=== PATIENT | female | born 1980 | race Caucasian/White ===

== ENCOUNTER 2020-10-10 10:27 | Emergency (ER) | payer OTHER, SELFPAY ==
--- NOTE | ~2020-10-10 | XR_ITS ---
EXAMINATION: XR hand RT min 3V EXAM DATE: 10/10/2020 10:58 INDICATION: Initial encounter following injury, with pain of the right hand, 5th metacarpal. TECHNIQUE: Right hand frontal, lateral and oblique projections obtained and reviewed. There is no pr ior study for comparison. FINDINGS: Right metacarpal bones are unremarkable. There are no acute fractures or dislocations iden tified. There is no subcutaneous gas. The soft tissue is unremarkable. There are no radiopaque fo reign bodies. IMPRESSION: 1. Right hand exam without acute osseous findings. Reviewed, dictated and finalized at location A. 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
[2020-10-10 10:41] VITALS: BP 139/88; PULSE 85; RESP 16; TEMP 36.3; O2SAT 100
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
== END 2020-10-10 11:17 | disposition home or self-care (01) ==
PROVIDERS: Emergency Provider Nurse Practitioner; PCP Family Medicine
DX: M79.641 Pain in right hand (principal); V49.40XA Driver injured in collision with unspecified motor vehicles in traffic accident, initial encounter
CPT/HCPCS: 73130; 99213; G0463

== ENCOUNTER 2020-10-28 14:52 | Outpatient (CLI) | payer OTHER, SELFPAY ==
[2020-10-28 16:11] LABS: CRP 0.6 mg/dL (<1.0)
[2020-10-28 16:38] LABS: Erythrocyte Sedimentation Rate 16 mm/hr (0-20)
== END 2020-10-28 14:53 | disposition home or self-care (01) ==
LOC: ANHLAB 14:53
PROVIDERS: PCP Family Medicine; Visit Provider Internal Medicine Gastroenterology
DX: R19.7 Diarrhea, unspecified (principal)
CPT/HCPCS: 36415; 85652; 86140

== ENCOUNTER 2020-10-30 09:42 | Outpatient (CLI) | payer OTHER, SELFPAY | END 2020-10-30 09:43 | disposition home or self-care (01) | LOC: ANHLAB 09:43 | PROVIDERS: PCP Family Medicine; Visit Provider Internal Medicine Gastroenterology | DX: R19.7 Diarrhea, unspecified (principal) | CPT/HCPCS: 87177; 87209 ==

== ENCOUNTER → 2021-02-15 01:00 | Outpatient (CLI) | payer OTHER, SELFPAY ==
[2021-02-15 19:13] LABS: SARS-CoV-2 RNA PCR Negative
== END ==
PROVIDERS: PCP Family Medicine; Visit Provider Internal Medicine Gastroenterology
DX: Z01.812 Encounter for preprocedural laboratory examination (principal); Z20.822 Contact with and (suspected) exposure to COVID-19
CPT/HCPCS: C9803; U0003; U0005

== ENCOUNTER 2021-02-18 00:10 | Day surgery (SDC) | payer OTHER, SELFPAY ==
[2021-02-05 15:16] VITALS: BMI 48.0
--- NOTE | 2021-02-18 09:28 | WPDANESEPPF ---
Anes - Initial Pre Proc Eval Procedure: Operation Date: 02/18/21 11:00 Proposed Procedures p Colonoscopy - Daniele Puri MD Date/Time: 02/18/21 09:28 Surgeon: Daniele Puri MD Pre Op Diagnosis: Colitis Patient Data Age: 41 Gender: F Height: 5 ft 4 in Weight: 127 kg Allergies Allergy/AdvReac Type Severity Reaction Status Date / Time butorphanol Allergy Intermediate Palpitation Verified 02/18/21 09:29 s egg Allergy Intermediate VOMITTING Verified 02/18/21 09:29 ketorolac Allergy Intermediate Palpitation Verified 02/18/21 09:29 s Home Medications Medication Instructions Recorded Confirmed Type azelaic acid 15 % topical foam 1 applic TOPICAL BID 10/28/20 02/18/21 History levothyroxine 150 mcg tablet 150 mcg PO DAILY #90 tablet 01/03/21 02/18/21 Rx Patient hx anesthesia problems: none Family hx anesthesia problems: none PMFSH Past Medical History Medical History (Updated 02/18/21 @ 09:28 by Abdi Srinivasan MD) Depression Diarrhea Hypothyroidism, unspecified Migraine without aura and without status migrainosus, not intractable Otitis media Family History Family History Sibling Hypertension Patient's sister is in good health, Onset Age: 38 Patient's brother is in good health, Onset Age: 33 Family history of elevated blood lipids, Onset Age: 36 Diabetes mellitus Father Hypertension Family history of elevated blood lipids, Onset Age: 57 Family history of diabetes mellitus in first degree relative, Onset Age: 57 Diabetes mellitus Mother Family history of chronic obstructive pulmonary disease Family history of coronary artery disease, Onset Age: 54 Social History Social History (Updated 02/03/21 @ 15:51 by Olivia Bai) Smoking status: Never smoker Second hand tobacco smoke exposure: No Alcohol intake: current Substance use: never Substance use type: does not use Living arrangements: with family Gender identity (if verbalized by the patient): Female Spiritual care concerns: No Anes - Eval Final PreProcedure Day of Procedure 02/18/21 09:28 Patient weight: morbidly obese Heart: regular rate and rhythm Lungs: clear to auscultation Airway: Mallampati scale class II Neurological: alert and oriented Last oral intake: >/= 8 hours ASA classification: III Emergent: no Anesthetic plan: proceed Anesthesia type and monitoring: general GIVS and standard monitoring Informed Consent: The patient's anesthetic plan and its attendant risks and benefits were discussed with the patient/family/POA. Questions were solicited and answers provided to the satisfaction of the patient/family/POA.
[2021-02-18 09:30] VITALS: BP 130/86; PULSE 78; RESP 17; TEMP 36.8; O2SAT 99; BMI 47.8
[2021-02-18] MEDS: LACTATED RINGERS 1,000 ML 150 ML IV CONT (09:41)
--- NOTE | 2021-02-18 10:14 | PM.HPGS ---
History of Present Illness History of Present Illness Consent: Risks, benefits, and alternatives have been discussed and questions answered. Patient agrees to proceed with procedure. Chief complaint: Colitis Narrative: Austin Mckeon is a 41 year old female with chronic diarrhea Review of Systems Constitutional: Constitutional: Denies headache(s) and Denies weakness Eyes: Eyes: Denies blurry vision ENT: Reports Normal hearing present, Denies headache(s) and Denies neck pain Cardiovascular: Cardiovascular: Denies chest pain and Denies dyspnea Respiratory: Respiratory: Denies dyspnea Gastrointestinal: Gastrointestinal: Reports no additional gastrointestinal complaints Genitourinary: Genitourinary: Denies dysuria Musculoskeletal: Musculoskeletal: Denies neck pain Integumentary/Breasts: Skin/Breast: Denies dry skin Neurologic: Reports Normal hearing present, Denies headache(s) and Denies weakness Psychiatric: Psychiatric: Denies anxiety Endocrine: Endocrine: Denies change in body appearance Hematologic/Lymphatic: Hematologic/Lymphatic: Denies easy bleeding Allergic/Immunologic: Allergic/Immunologic: Denies urticaria PMFSH Past Medical History Medical History (Updated 02/18/21 @ 09:28 by Abdi Srinivasan MD) Depression Diarrhea Hypothyroidism, unspecified Migraine without aura and without status migrainosus, not intractable Otitis media Family History Family History Sibling Hypertension Patient's sister is in good health, Onset Age: 38 Patient's brother is in good health, Onset Age: 33 Family history of elevated blood lipids, Onset Age: 36 Diabetes mellitus Father Hypertension Family history of elevated blood lipids, Onset Age: 57 Family history of diabetes mellitus in first degree relative, Onset Age: 57 Diabetes mellitus Mother Family history of chronic obstructive pulmonary disease Family history of coronary artery disease, Onset Age: 54 Social History Social History (Updated 02/03/21 @ 15:51 by Olivia Bai) Smoking status: Never smoker Second hand tobacco smoke exposure: No Alcohol intake: current Substance use: never Substance use type: does not use Living arrangements: with family Gender identity (if verbalized by the patient): Female Spiritual care concerns: No Meds Home Medications and Allergies Home Medications Medication Instructions Recorded Confirmed Type azelaic acid 15 % topical foam 1 applic TOPICAL BID 10/28/20 02/18/21 History levothyroxine 150 mcg tablet 150 mcg PO DAILY #90 tablet 01/03/21 02/18/21 Rx Allergies Allergy/AdvReac Type Severity Reaction Status Date / Time butorphanol Allergy Intermediate Palpitation Verified 02/18/21 09:29 s egg Allergy Intermediate VOMITTING Verified 02/18/21 09:29 ketorolac Allergy Intermediate Palpitation Verified 02/18/21 09:29 s Vital Signs Vital Signs - 24 hr 02/18/21 09:30 Temperature 98.3 F Pulse Rate 78 Respiratory Rate 17 Blood Pressure 130/86 Pulse Oximetry 99 Exam Const: General: comfortable and no acute distress HENMT: General nose exam: Normal nares present Eyes: General: appearance normal, both eyes and all related structures Neck: Neck: no JVD Resp: Auscultation: clear to auscultation bilaterally Cardio: Rate: regular rate Rhythm: regular rhythm GI: Inspection: non-distended GI Palp: Yes Soft to palpation Skin: General skin exam: normal color Neuro: General: gait normal Speech: normal speech Extrem: General: normal to inspection Psych: Mental Status: mental status grossly normal Assessment and Plan Assessment and plan (1) Diarrhea: Code(s): R19.7 - Diarrhea, unspecified Status: Acute Assessment and Plan: colonoscopy with bx
[2021-02-18 10:42] VITALS: BP 122/80; PULSE 72; RESP 17; O2SAT 100
[2021-02-18 10:52] VITALS: BP 132/89; PULSE 70; RESP 18; O2SAT 100
[2021-02-18 11:02] VITALS: BP 133/83; PULSE 70; RESP 18; O2SAT 100
== END 2021-02-18 11:25 | disposition home or self-care (01) ==
PROVIDERS: PCP Family Medicine; Visit Provider Internal Medicine Gastroenterology
PROC: 0DJD8ZZ Inspection of Lower Intestinal Tract, Via Natural or Artificial Opening Endoscopic (ICD-10-PCS; CPT 45378; principal; 2021-02-18 11:00)
DX: R19.7 Diarrhea, unspecified (principal); K64.8 Other hemorrhoids; E03.9 Hypothyroidism, unspecified; E66.01 Morbid (severe) obesity due to excess calories; Z68.42 Body mass index [BMI] 45.0-49.9, adult
CPT/HCPCS: 45380; 88305; J2704; J7120

== ENCOUNTER 2021-07-11 12:10 | Outpatient (CLI) | payer OTHER, SELFPAY ==
--- NOTE | ~2021-07-11 | XR_ITS ---
XR foot RT min 3V DATE: 07/11/2021 12:25 INDICATION: Right heel pain. TECHNIQUE: 4 views COMPARISON: None FINDINGS: There is mild osteophyte is at the first metatarsophalangeal joint. No fracture or dislocation, periosteal reaction or bone destruction. No calcaneal spurs. IMPRESSION: No calcaneal spurs Mild osteoarthritis at the first metatarsophalangeal joint Reviewed, dictated and finalized at location A.
== END 2021-07-11 12:11 | disposition home or self-care (01) ==
PROVIDERS: PCP Family Medicine; Visit Provider Nurse Practitioner Family
DX: M19.071 Primary osteoarthritis, right ankle and foot (principal)
CPT/HCPCS: 73630

== ENCOUNTER 2021-07-23 16:39 | Outpatient (CLI) | payer OTHER, SELFPAY ==
--- NOTE | ~2021-07-23 | MM_ITS ---
EXAMINATION: MM screening shen BI w mauro HISTORY: Screening mammogram TECHNIQUE: Craniocaudal and mediolateral oblique 3-D tomosynthesis images were obtained and synthetic 2-D images were generated. CAD analysis was submitted and interpreted. COMPARISON: 05/16/2014 BREAST PARENCHYMAL COMPOSITION: There are scattered areas of fibroglandular density. FINDINGS: RIGHT BREAST: There is low-density mass in the posterior third of the slightly outer breast. LEFT BREAST: There is no evidence of suspicious mass, calcification, or architectural distortion to s uggest malignancy. There has been no significant interval change. IMPRESSION: 1. Right breast mass. 2. Additional mammographic views and possible breast ultrasound are recommended. BI-RADS Category 0: Incomplete: Needs additional imaging evaluation. Reviewed, dictated and finalized at location A. IMPRESSION: 1. Right breast mass. 2. Additional mammographic views and possible breast ultrasound are recommended . BI-RADS Category 0: Incomplete: Needs additional imaging evaluation.
== END 2021-07-23 16:40 | disposition home or self-care (01) ==
PROVIDERS: PCP Family Medicine; Visit Provider Family Medicine
DX: Z12.31 Encounter for screening mammogram for malignant neoplasm of breast (principal); R92.8 Other abnormal and inconclusive findings on diagnostic imaging of breast
CPT/HCPCS: 77063; 77067

== ENCOUNTER 2021-08-18 13:02 | Outpatient (CLI) | payer OTHER, SELFPAY ==
--- NOTE | ~2021-08-18 | MMUS_ITS ---
EXAMINATION: MM diagnostic shen RT w mauro, US breast RT limited HISTORY: Follow-up right breast asymmetry TECHNIQUE: Additional 3-D tomosynthesis images of the right breast were performed and synthetic 2-D i mages were generated. CAD analysis was submitted and interpreted. High resolution Limited right breas t ultrasound was performed. COMPARISON: 07/23/2021 BREAST PARENCHYMAL COMPOSITION: Breast composed of scattered areas of fibroglandular density. FINDINGS: MAMMOGRAPHIC FINDINGS: There are small benign-appearing masses in the mid lateral aspect of the right breast. There are no s uspicious calcifications or architectural distortion. ULTRASOUND: Limited right breast ultrasound: At 9:00, 3 cm from the nipple, there is a complicated 3 mm cyst. No suspicious masses to suggest malignancy. IMPRESSION: 1. Probable benign right breast findings. Short-term follow-up recommended. 2. Recommend 6 month follow-up diagnostic right mammogram and ultrasound BI-RADS category 3, probably benign findings. Reviewed, dictated and finalized at location A. IMPRESSION: 1. Probable benign right breast findings. Short-term follow-up recommended. 2. Recommend 6 month follow-up diagnostic right mammogram and ultrasound BI-RADS category 3, probably benign findings.
== END 2021-08-18 13:03 | disposition home or self-care (01) ==
LOC: ANHIMG 13:04
PROVIDERS: PCP Family Medicine; Visit Provider Physician Assistant
DX: N63.10 Unspecified lump in the right breast, unspecified quadrant (principal); R92.8 Other abnormal and inconclusive findings on diagnostic imaging of breast
CPT/HCPCS: 76642; 77061; 77065; G0279

== ENCOUNTER 2021-10-14 08:00 | Outpatient (RCR) | payer OTHER, SELFPAY ==
--- NOTE | 2021-08-28 11:48 | PTOPEVAL ---
INITIAL PHYSICAL THERAPY EVALUATION and PLAN OF CARE Thank you for referring Austin Mckeon to [facility].? Austin is scheduled to be seen for physical therapy? 1x/week for 6 weeks. Please review, sign, date and return this plan of care BRANDO. I agree with and certify that the following plan of care is medically necessary. Referring Physician Date Admitting Provider: Attending Provider: Solange Ye CNM Referring Provider: *PT Outpatient Evaluation Start: 08/28/21 08:19 Freq: Status: Active Protocol: Document 08/28/21 08:19 DEVON (Rec: 08/28/21 09:35 DEVON [id number]) Therapy Assessment Status Assessment Status Assessment Status Evaluation Outpatient Past Medical History Past Medical History Source of Past Medical History Recalled from Previous Visit, Confirmed with Patient/Family Neurological History Hx Migraine Yes: COUPLE TIMES A YEAR Cardiovascular History Hx Cardiac Disorders No Significant History Respiratory History Hx Respiratory Disorders No Significant History Gastrointestinal History Hx Cholecystectomy Yes Hx Colitis Yes: R/O Hx Gastroesophageal Reflux Disease Yes Hx Irritable Bowel Yes: vs ulcerative colitis-has appt 10/28/20 Genitourinary History Hx Genitourinary Disorders No Significant History Musculoskeletal History Hx Musculoskeletal Disorders No Significant History Hematological History Hx Hematological Disorders No Significant History Endocrine History Hx Hypothyroidism Yes Hx Other Endocrine Disorders Yes: hypoglycemic HEENT History Hx HEENT Disorders No Significant History Integumentary History Hx Eczema Yes: PATCHES Hx Other Skin Disorders Yes: ROSASEA Reproductive History Hx Abnormal Uterine Bleeding Yes: 2018-ABLATION Hx Tubal Ligation Yes Hx Other Reproductive Disorders Yes: uterine ablation Psychosocial History Hx Anxiety Yes Hx Depression Yes: PAST Pain History History of Any Previous or Ongoing No Significant History Instance of Pain Anesthesia History Hx Post-Op Nausea/Vomiting Yes Hx Other Anesthesia Reactions Yes: SLOW TO WAKE UP, NAUSEA Evaluation Information Problem Diagnosis dyspareunia Onset Subjective Information Austin was using menstrual cup Query Text:As Reported By Patient/ - but inability to get it Family placed it in the correct position since . Then switched to tampons - but still had difficulty with placement - didn't feel
--- NOTE | 2021-09-18 08:37 | PCPTNOTE ---
Patient called & cancelled scheduled appointment this date due to illness.
--- NOTE | 2021-09-23 08:34 | PCPTNOTE ---
Patient called & cancelled scheduled appointment this date due to children may have a virus - going to have them checked out.
--- NOTE | 2021-10-07 08:43 | PCPTNOTE ---
Patient called & cancelled scheduled appointment this date due to not feeling well. She did reschedule her re-evaluation.
--- NOTE | 2021-10-14 10:44 | PTOPEVAL ---
PHYSICAL THERAPY DISCHARGE SUMMARY Thank you for referring Austin Mckeon to [facility].? Austin has been seen x 5 visits in PT. She has gained levator ani strength and endurance as well as increase with relaxation ability. She has met goals set. She is to continue with her HEP as well as soft tissue mobilization techniques. She is ready for d/c from PT to HEP. I agree with Austin's discharge from PT to HEP. Referring Physician Date Admitting Provider: Attending Provider: Solange Ye CNM Referring Provider: Therapy Assessment Status Assessment Status Assessment Status Discharge Evaluation Information Problem Diagnosis dyspareunia Subjective Information Austin reports that exercises Query Text:As Reported By Patient/ are going well for her - doesn Family 't have the urine smell in underwear like she used to. With sneezing and coughing - not having urinary leakage. [place] is less painful - if she does feel discomfort her fiance will reposition for less discomfort. Pain Assessment Timing of Pain Assessment Timing of Pain Assessment Assessment Pain Scale Pain Scale Used Numeric (1 - 10) Self Report Pain Assessment Vagina Reported Pain Level 0 Lowest Pain Intensity 0 Greatest Pain Intensity 2 Pain Score Pain Score 0: Self Report Interventions Used Interventions Used By Clinicians Exercise Pelvic Health Evaluation Pelvic Floor Assessment Internal Perineal Body Palpation deferred due to pt in menstrual cycle Sustained Levator Ani Strength 4/5 with 10 count hold Quick Levator Ani Contraction in 15 17 Seconds Rehab Teaching Rehab Teaching Teaching Topic Rehab Teaching Topic Components Anatomy/Physiology,Exercise, Home Program,Skin Care As Pertains To Technique,Vendor Information Recipient Patient Learning Preferences Audio,Demonstration,Discussion ,One-on-One Instruction Barriers to Learning None Readiness to Learn Excellent Response Verbalizes Understanding Method Discussion,One-On-One Instruction PT Clinical Summary Clinical Summary Protocol: PTEVCODE PT Clinical Summary Vulvar Pain Functional Questionnaire - 3 pts Austin has progressed well in PT. She has gained levator ani strength and control as
== END 2021-10-14 16:41 | disposition home or self-care (01) ==
LOC: ANHPT 08:00
PROVIDERS: PCP Family Medicine; Visit Provider Advanced Practice Midwife
DX: N94.10 Unspecified dyspareunia (principal)
CPT/HCPCS: 97110; 97140; 97162

== ENCOUNTER 2022-02-02 13:30 | Outpatient (CLI) | payer OTHER, SELFPAY ==
--- NOTE | ~2022-02-02 | MMUS_ITS ---
EXAMINATION: MM diagnostic shen RT w mauro, US breast RT limited HISTORY: Follow-up right breast mass TECHNIQUE: Additional 3-D tomosynthesis images of the right breast were performed and synthetic 2-D i mages were generated. CAD analysis was submitted and interpreted. High resolution Limited right breas t ultrasound was performed. COMPARISON: Comparison to multiple prior studies sequentially, with oldest reviewed study dated 05/16. BREAST PARENCHYMAL COMPOSITION: Breast composed of scattered areas of fibroglandular density FINDINGS: MAMMOGRAPHIC FINDINGS: There are no suspicious masses, calcifications or architectural distortion in the right breast to sug gest malignancy. ULTRASOUND: Limited right breast ultrasound: At 9:00, 5 cm from the nipple there is a 6 mm oval hypoechoic mass w ith low-level internal echoes, parallel orientation, no posterior features and no internal vascularit y. At 9:00, 3 cm from the nipple there is a 3 mm complicated cyst. IMPRESSION: 1. Probable benign right breast masses. 2. Recommend 6 month follow-up bilateral mammogram and limited right breast ultrasound BI-RADS category 3, probably benign findings. Reviewed, dictated and finalized at location A. 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 Probable benign right breast masses. 2. Recommend 6 month follow-up bilateral mammogram and limited right breast ult rasound BI-RADS category 3, probably benign findings.
== END 2022-02-02 13:31 | disposition home or self-care (01) ==
LOC: ANHIMG 13:31
PROVIDERS: PCP Family Medicine; Visit Provider Physician Assistant
DX: R92.8 Other abnormal and inconclusive findings on diagnostic imaging of breast (principal)
CPT/HCPCS: 76642; 77061; 77065; G0279

== ENCOUNTER 2022-07-31 11:43 | Outpatient (CLI) | payer OTHER, SELFPAY ==
--- NOTE | ~2022-07-31 | MMUS_ITS ---
EXAMINATION: MM diagnostic shen BI w mauro, US breast RT limited HISTORY: Six-month follow-up for probably benign right breast masses TECHNIQUE: Craniocaudal, mediolateral, and mediolateral oblique 3-D tomosynthesis images of the breas ts were performed and synthetic 2-D images were generated. CAD analysis was submitted and interpreted . High resolution limited right breast ultrasound was performed. COMPARISON: 02/02/2022, 08/18/2021, 07/23/2021, 05/16/2014 BREAST PARENCHYMAL COMPOSITION: There are scattered areas of fibroglandular density. FINDINGS: MAMMOGRAPHIC FINDINGS: There is no suspicious mass, calcification, or architectural distortion in either breast to suggest malignancy. There has been no suspicious interval change. ULTRASOUND: A 2 mm round mass at the 9:00 location 5 cm from the nipple demonstrates interval decrease in size, c onsistent with a benign finding. A mass previously described at the 9:00 location 3 cm from the nippl e is no longer identified. IMPRESSION: 1. No mammographic or sonographic evidence of malignancy. 2. Recommend routine screening mammography in one year. BI-RADS Category 2: Benign finding(s). Reviewed, dictated and finalized at location A. IMPRESSION: 1. No mammographic or sonographic evidence of malignancy. 2. Recommend routine screening mammography in one year. BI-RADS Category 2: Benign finding(s).
== END 2022-07-31 11:44 | disposition home or self-care (01) ==
LOC: ANHIMG 11:44
PROVIDERS: PCP Family Medicine; Visit Provider Physician Assistant
DX: R92.8 Other abnormal and inconclusive findings on diagnostic imaging of breast (principal)
CPT/HCPCS: 76642; 77062; 77066; G0279

== ENCOUNTER 2022-10-12 09:18 | Outpatient (CLI) | payer OTHER, SELFPAY ==
--- NOTE | ~2022-10-12 | US_ITS ---
EXAMINATION: US abdomen complete DATE: 10/12/2022 10:00 INDICATION: Hepatic steatosis TECHNIQUE: Multiple grayscale and Doppler ultrasound images of the abdomen were obtained. COMPARISON: 05/19/2017; CT, 06/22/2019 FINDINGS: The head and body of the pancreas are normal. The pancreatic tail is obscured by bowel gas. The liver is normal with normal echogenicity and echotexture. No surface nodularity. Normal hepatope maury flow in the main portal vein. The gallbladder is surgically absent. The normal common bile duct m easures 4 mm. There was no sonographic Elaine sign. The visualized portions of the aorta and inferior vena cava are normal. The right kidney measures 11.6 x 4.4 x 6.3 cm. The left kidney measures 14 x 5.0 x 5.7 cm. The kidney s demonstrate normal parenchymal echogenicity. There is no hydronephrosis. The spleen is normal in ap pearance and measures 11.3 cm. IMPRESSION: 1. Unremarkable abdominal ultrasound. Reviewed, dictated and finalized at location F. 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
== END 2022-10-12 09:19 | disposition home or self-care (01) ==
PROVIDERS: PCP Family Medicine
DX: K76.0 Fatty (change of) liver, not elsewhere classified (principal)
CPT/HCPCS: 76700

== ENCOUNTER 2023-04-21 18:39 | Emergency (ER) | payer OTHER, SELFPAY ==
--- NOTE | 2023-04-21 18:48 | ED.SKABFB ---
HPI - Skin/Abscess/Foreign Bdy General Chief complaint: Skin/Abscess/Foreign Body Stated complaint: RASH Time Seen by Provider: 04/21/23 18:48 Source: patient Mode of arrival: ambulatory Limitations: no limitations History of Present Illness HPI narrative: 43-year-old female presents with complaint of rash, itching to groin for 3 days. States she did 8 hours of your work on Wednesday and symptoms started the next day. States no history of similar rash. Sees a weight loss doctor and reports blood sugar, A1c normal. Has been applying [id number] hydrocortisone cream to treat itching. Patient reports she was recently given a prescription for terbinafine for toenail fungus but has not started yet. All systems reviewed and negative except as noted above. Related Data Home Medications Medication Instructions Recorded Confirmed azelaic acid 15 % topical foam 1 applic topical BID 10/28/20 04/21/23 (Finacea) tirzepatide 12.5 mg/0.5 mL 12.5 mg subcut WEEKLY 04/21/23 04/21/23 subcutaneous pen injector (Mounjaro) Allergies Allergy/AdvReac Type Severity Reaction Status Date / Time butorphanol Allergy Intermediate Palpitation Verified 04/21/23 18:42 s egg Allergy Intermediate VOMITTING Verified 04/21/23 18:42 ketorolac Allergy Intermediate Palpitation Verified 04/21/23 18:42 s Review of Systems Review of Systems: CONSTITUTIONAL: Denies fever, chills, or sweats. EYES: Denies visual changes, redness, or discharge. ENT: Denies rhinorrhea, congestion, sore throat, or otalgia. CARDIOVASCULAR: Denies chest pain, palpitations, or edema. RESPIRATORY: Denies cough or dyspnea. GASTROINTESTINAL: Denies abdominal pain, nausea, vomiting, or diarrhea. GENITOURINARY: Denies dysuria or hematuria. SKIN: Reports redness and itching to bilateral groin. MUSCULOSKELETAL: Denies back pain, joint pain, or myalgia. NEUROLOGIC: Denies headache, numbness, or weakness. PSYCHIATRIC: Denies anxiety or depression. All other systems reviewed are negative, except as documented in HPI. PENDING SALE TO [facility] Past Medical History Medical History Anxiety Depression Diarrhea Hypothyroidism, unspecified Migraine without aura and without status migrainosus, not intractable Otitis media Family History Family History Sibling Hypertension Patient's sister is in good health, Onset Age: 38 Patient's brother is in good health, Onset Age: 33 Family history of elevated blood lipids, Onset Age: 36 Diabetes mellitus Father Hypertension Family history of elevated blood lipids, Onset Age: 57 Family history of diabetes mellitus in first degree relative, Onset Age: 57 Diabetes mellitus Mother Family history of chronic obstructive pulmonary disease Family history of coronary artery disease, Onset Age: 54 Social History Social History Smoking status: Never smoker Second hand tobacco smoke exposure: No Alcohol intake: never Substance use: never Substance use type: does not use Living arrangements: with family Occupation/Education: occupation Gender identity (if verbalized by the patient): Female Sexual Orientation (if Verbalized by the Patient): Straight or Heterosexual Spiritual care concerns: No Comments At time of signature, agree with nursing past medical, surgical, social and family history. There is no relevant family history pertinent to the presenting complaint. Exam Narrative: GENERAL: This is a well-nourished, well-developed patient, in no apparent distress. HEAD: normocephalic, atraumatic. EYES: PERRL. Sclera clear/white. Vision is grossly intact. EARS: External ears normal NOSE: External nose normal NECK: Neck supple, non-tender without lymphadenopathy, masses or thyromegaly. CARDIOVASCULAR: Regular rate and rhythm without murmurs, gallops, or
[2023-04-21 18:51] VITALS: BP 130/89; PULSE 79; RESP 16; TEMP 36.5; O2SAT 97
== END 2023-04-21 19:20 | disposition home or self-care (01) ==
PROVIDERS: Emergency Provider Nurse Practitioner Family; PCP Family Medicine
DX: B37.2 Candidiasis of skin and nail (principal); E03.9 Hypothyroidism, unspecified
CPT/HCPCS: 99213; G0463

== ENCOUNTER 2023-04-25 11:45 | Emergency (ER) | payer OTHER, SELFPAY ==
[2023-04-25 11:52] VITALS: BP 120/86; PULSE 65; RESP 16; TEMP 36.8; O2SAT 100
--- NOTE | 2023-04-25 12:43 | ED.SKABFB ---
HPI - Skin/Abscess/Foreign Bdy General Chief complaint: Skin/Abscess/Foreign Body Stated complaint: yeast infection on legs Time Seen by Provider: 04/25/23 12:43 Source: patient, RN notes reviewed and old records reviewed Mode of arrival: ambulatory Limitations: no limitations History of Present Illness HPI narrative: 43 year old female who presents with concern for warmth and increased redness and spreading of rash to bilateral upper thighs and groin area. Patient has been using nystatin ointment as prescribed by clinic provider and also is on terbinafine for toenail fungus from her PCP. Patient states that area of rash is itchy, has spread and feels warm with concern stated for possible cellulitis. No weeping drainage noted from skin tissue but warm to touch. Patient reports that she has not had any fevers. Patient reports that rash area is very itchy and if she scratches, it mantilla. MD complaint: rash Onset (ago): day(s) (6) Tetanus up to date: no Treatments prior to arrival: OTC topical medication and other (terbinafine oral medication, Nystatin ointment) Related Data Home Medications Medication Instructions Recorded Confirmed azelaic acid 15 % topical foam 1 applic topical BID 10/28/20 04/21/23 (Finacea) tirzepatide 12.5 mg/0.5 mL 12.5 mg subcut WEEKLY 04/21/23 04/21/23 subcutaneous pen injector (Mounjaro) Allergies Allergy/AdvReac Type Severity Reaction Status Date / Time butorphanol Allergy Intermediate Palpitation Verified 04/25/23 12:11 s egg Allergy Intermediate VOMITTING Verified 04/25/23 12:11 ketorolac Allergy Intermediate Palpitation Verified 04/25/23 12:11 s Review of Systems Review of Systems: CONSTITUTIONAL: Denies fever, chills, or sweats. CARDIOVASCULAR: Denies chest pain, palpitations, or edema. RESPIRATORY: Denies cough or dyspnea. SKIN: Reports increase rash to bilateral upper thighs and to groin with warmth to skin tissue. MUSCULOSKELETAL: Denies joint pain or myalgia. NEUROLOGIC: Denies headache, numbness, or weakness. All systems reviewed & are unremarkable except as noted in HPI and below PMFSH Past Medical History Medical History Anxiety Depression Diarrhea Hypothyroidism, unspecified Migraine without aura and without status migrainosus, not intractable Otitis media Family History Family History Sibling Hypertension Patient's sister is in good health, Onset Age: 38 Patient's brother is in good health, Onset Age: 33 Family history of elevated blood lipids, Onset Age: 36 Diabetes mellitus Father Hypertension Family history of elevated blood lipids, Onset Age: 57 Family history of diabetes mellitus in first degree relative, Onset Age: 57 Diabetes mellitus Mother Family history of chronic obstructive pulmonary disease Family history of coronary artery disease, Onset Age: 54 Social History Social History Smoking status: Never smoker Second hand tobacco smoke exposure: No Alcohol intake: never Substance use: never Substance use type: does not use Living arrangements: with family Occupation/Education: occupation Gender identity (if verbalized by the patient): Female Sexual Orientation (if Verbalized by the Patient): Straight or Heterosexual Spiritual care concerns: No Comments At time of signature, agree with nursing past medical, surgical, social and family history. There is no relevant family history pertinent to the presenting complaint Exam Narrative: GENERAL: Well-appearing, well-nourished, and in no acute distress. HEAD: Normocephalic, atraumatic. EYES: PERRLA, conjunctivae clear, and EOMI. ENT: Mucous membranes moist. Oropharynx without edema, erythema or lesions. NECK: Supple. No lymphadenopathy CHEST: Clear to auscultation. No respira
[2023-04-25] MEDS: TETANUS,DIPHTHERIA,AC PERTUSSIS ADULT (0.5 ML) BOOSTRIX IM (13:08)
== END 2023-04-25 13:11 | disposition home or self-care (01) ==
PROVIDERS: Emergency Provider Registered Nurse; PCP Family Medicine
DX: B37.2 Candidiasis of skin and nail (principal); L03.116 Cellulitis of left lower limb; L03.115 Cellulitis of right lower limb; E03.9 Hypothyroidism, unspecified; Z23 Encounter for immunization
CPT/HCPCS: 90471; 90715; 99213; G0463

== ENCOUNTER 2023-08-30 08:05 | Emergency (ER) | payer OTHER, SELFPAY ==
--- NOTE | ~2023-08-30 | XR_ITS ---
EXAMINATION: XR foot LT min 3V DATE: 08/30/2023 08:32 INDICATION: Left foot injury. TECHNIQUE: 4 views of left foot were obtained. COMPARISON: Left foot radiographs 04/20/2018 FINDINGS: Bone alignment is normal. No fracture. There is mild osteoarthritis of first metatarsophala ngeal joint. There is an enthesophyte at posterior aspect of calcaneal tuberosity. IMPRESSION: 1. Mild osteoarthritis of first metatarsophalangeal joint. Reviewed, dictated and finalized at location E.
[2023-08-30 08:15] VITALS: BP 126/82; PULSE 70; RESP 16; TEMP 36.7; O2SAT 100
[2023-08-30 08:17] VITALS: BP 126/82; PULSE 70; RESP 16; TEMP 36.7; O2SAT 100
--- NOTE | 2023-08-30 08:19 | ED.LOWEXIN ---
HPI - Extremity Injury (Lower) General Chief Complaint: Extremity Injury, Lower Stated Complaint: Injured foot Time Seen by Provider: 08/30/23 08:19 Source: patient, RN notes reviewed and old records reviewed Mode of arrival: ambulatory Limitations: no limitations History of Present Illness HPI Narrative: 43 year old female who presents to [facility] with complaints of glass lid from wok falling on her left foot when she was emptying her roof slater yesterday evening.Patient has pain and bruising to the top of her foot across the metatarsal area with pain increased with ambulation. Patient has applied ice to her foot and she has taken Ibuprofen. Patient is able to apply marlen bearing to her left foot with some increased discomfort. MD complaint: foot injury Onset (ago): day(s) (happened yesterday) Injury: Left: foot Type of Injury: blunt Place: home Severity scale (1-10): 5 (with ambulation) Treatments prior to arrival: cold therapy and other (Ibuprofen) Related Data Home Medications Medication Instructions Recorded Confirmed azelaic acid 15 % topical foam 1 applic topical BID 10/28/20 08/30/23 (Finacea) ivermectin 1 % topical cream 1 applic topical DIRECTED 08/30/23 08/30/23 (Soolantra) liraglutide (weight loss) 3 mg/0.5 3 mg subcut DIRECTED 08/30/23 08/30/23 mL (18 mg/3 mL) subcut pen injector (Saxenda) Allergies Allergy/AdvReac Type Severity Reaction Status Date / Time butorphanol Allergy Intermediate Palpitation Verified 08/30/23 08:13 s egg Allergy Intermediate VOMITTING Verified 08/30/23 08:13 ketorolac Allergy Intermediate Palpitation Verified 08/30/23 08:13 s Review of Systems Review of Systems: CONSTITUTIONAL: Denies fever, chills, or sweats. EYES: Denies visual changes, redness, or discharge. ENT: Denies rhinorrhea, congestion, sore throat, or otalgia. CARDIOVASCULAR: Denies chest pain, palpitations, or edema. RESPIRATORY: Denies cough or dyspnea. GASTROINTESTINAL: Denies abdominal pain, nausea, vomiting, or diarrhea. GENITOURINARY: Denies dysuria or hematuria. SKIN: Denies rash or itching. MUSCULOSKELETAL: Denies back pain,positive for left foot pain, or myalgia. NEUROLOGIC: Denies headache, numbness, or weakness. PSYCHIATRIC: Denies anxiety or depression. All systems reviewed & are unremarkable except as noted in HPI and below PMFSH Past Medical History Medical History (Updated 08/30/23 @ 08:49 by Saige Conway NP) Anxiety Depression Diarrhea Hypothyroidism, unspecified Migraine without aura and without status migrainosus, not intractable Otitis media Rosacea Family History Family History Sibling Hypertension Patient's sister is in good health, Onset Age: 38 Patient's brother is in good health, Onset Age: 33 Family history of elevated blood lipids, Onset Age: 36 Diabetes mellitus Father Hypertension Family history of elevated blood lipids, Onset Age: 57 Family history of diabetes mellitus in first degree relative, Onset Age: 57 Diabetes mellitus Mother Family history of chronic obstructive pulmonary disease Family history of coronary artery disease, Onset Age: 54 Social History Social History Smoking status: Never smoker Second hand tobacco smoke exposure: No Alcohol intake: never Substance use: never Substance use type: does not use Living arrangements: with family Occupation/Education: occupation Gender identity (if verbalized by the patient): Female Sexual Orientation (if Verbalized by the Patient): Straight or Heterosexual Spiritual care concerns: No Comments At time of signature, agree with nursing past medical, surgical, social and family history. There is no relevant family history pertinent to the presenting complaint Exam Narrative: GENERAL: Well-appearing, well-nourished, and in no acute d
== END 2023-08-30 08:52 | disposition home or self-care (01) ==
PROVIDERS: Emergency Provider Registered Nurse; PCP Family Medicine
DX: S90.32XA Contusion of left foot, initial encounter (principal); E03.9 Hypothyroidism, unspecified; W22.8XXA Striking against or struck by other objects, initial encounter; Y92.009 Unspecified place in unspecified non-institutional (private) residence as the place of occurrence of the external cause
CPT/HCPCS: 73630; 99213; G0463

== ENCOUNTER 2023-11-16 14:42 | Emergency (ER) | payer OTHER, SELFPAY ==
[2023-11-16 14:47] VITALS: BP 117/85; PULSE 81; RESP 16; TEMP 36.9; O2SAT 99
--- NOTE | 2023-11-16 14:57 | ED.FEMALEGU ---
HPI - Female Genitourinary General Chief complaint: Urogenital-Female Stated complaint: Bladder Infection Time Seen by Provider: 11/16/23 14:58 Source: patient, RN notes reviewed and old records reviewed Mode of arrival: ambulatory Limitations: no limitations History of Present Illness HPI Narrative: 43-year-old female presents to the [facility] with concerns she might have a bladder infection. Since Wednesday has had a strong odor, urgency and occasional burning when she urinates. No treatment prior to arrival Last menstrual period 29 October Denies abdominal pain or chest pain. Denies fevers Onset (ago): day(s) (2) Related Data Home Medications Medication Instructions Recorded Confirmed azelaic acid 15 % topical foam 1 applic topical BID 10/28/20 10/13/23 (Finacea) ivermectin 1 % topical cream 1 applic topical DIRECTED 08/30/23 10/13/23 (Soolantra) liraglutide (weight loss) 3 mg/0.5 3 mg subcut DIRECTED 08/30/23 10/13/23 mL (18 mg/3 mL) subcut pen injector (Saxenda) Allergies Allergy/AdvReac Type Severity Reaction Status Date / Time butorphanol Allergy Intermediate Palpitation Verified 10/13/23 16:51 s egg Allergy Intermediate VOMITTING Verified 10/13/23 16:51 ketorolac Allergy Intermediate Palpitation Verified 10/13/23 16:51 s Review of Systems Review of Systems: All systems reviewed & are unremarkable except as noted in HPI and below Constitutional: Constitutional: Reports no additional constitutional complaints Eyes: Eyes: Reports no additional eye complaints ENT: Reports system reviewed and no additional complaints, except as documented Cardiovascular: Cardiovascular: Reports no additional cardiovascular complaints, Denies chest pain and Denies dyspnea Respiratory: Respiratory: Reports no additional respiratory complaints, Denies chest congestion, Denies cough and Denies dyspnea Gastrointestinal: Gastrointestinal: Reports no additional gastrointestinal complaints, Denies abdominal pain, Denies nausea and Denies vomiting Genitourinary: Genitourinary: Reports as per HPI and Reports dysuria Musculoskeletal: Musculoskeletal: Reports no additional musculoskeletal complaints Integumentary/Breasts: Skin/Breast: Reports system reviewed and no additional complaints, except as docu Neurologic: Reports system reviewed and no additional complaints, except as documented Psychiatric: Psychiatric: Reports no additional psychiatric complaints Allergic/Immunologic: Allergic/Immunologic: Reports no additional allergic/immunologic complaints PMFSH Past Medical History Medical History Anxiety Depression Diarrhea Hypothyroidism, unspecified Migraine without aura and without status migrainosus, not intractable Otitis media Rosacea Family History Family History Sibling Hypertension Patient's sister is in good health, Onset Age: 38 Patient's brother is in good health, Onset Age: 33 Family history of elevated blood lipids, Onset Age: 36 Diabetes mellitus Father Hypertension Family history of elevated blood lipids, Onset Age: 57 Family history of diabetes mellitus in first degree relative, Onset Age: 57 Diabetes mellitus Mother Family history of chronic obstructive pulmonary disease Family history of coronary artery disease, Onset Age: 54 Social History Social History Smoking status: Never smoker Second hand tobacco smoke exposure: No Alcohol intake: never Substance use: never Substance use type: does not use Living arrangements: with family Occupation/Education: occupation Gender identity (if verbalized by the patient): Female Sexual Orientation (if Verbalized by the Patient): Straight or Heterosexual Spiritual care concerns: No Comments At the time of my signature, I reviewed and agr
== END 2023-11-16 15:14 | disposition home or self-care (01) ==
PROVIDERS: Emergency Provider Nurse Practitioner; PCP Family Medicine
DX: R30.0 Dysuria (principal); E03.9 Hypothyroidism, unspecified
CPT/HCPCS: 81003; 87077; 87086; 87186; 99213; G0463

== ENCOUNTER 2024-08-24 15:38 | Outpatient (CLI) | payer OTHER, SELFPAY ==
--- NOTE | ~2024-08-24 | XR_ITS ---
EXAM: XR sacrum coccyx min 2V DATE: 08/24/2024 15:55 HISTORY: no injury left side lbp and tailbone pain for 9 months . COMPARISON: X-ray lumbar spine, same date. FINDINGS: Mild degenerative change in the right SI joint. Moderate degenerative disc disease at L5-S 1. Multiple pelvic phleboliths. Normal sacral and coccygeal elements. IMPRESSION: Mild right SI joint arthritis. Reviewed, dictated and finalized at location K.
--- NOTE | ~2024-08-24 | XR_ITS ---
EXAM: XR lumbar spine 2-3V DATE: 08/24/2024 15:55 HISTORY: no injury left side lbp and tailbone pain for 9 months . COMPARISON: None available. FINDINGS: 5 nonrib-bearing lumbar-type vertebral bodies. Pedicles intact. Normal vertebral body alig nment. Mild lumbar straightening. Vertebral body heights preserved. Moderate disc space narrowing at L5-S1. Mild disc space narrowing at L3-4. Mild facet hypertrophy and sclerosis in the lower lumbar sp ine. No fracture or dislocation. Cholecystomy clips. IMPRESSION: Multilevel degenerative disc disease, mild at L3-4 and moderate at L5-S1. Mild lower lumb ar facet arthropathy. Reviewed, dictated and finalized at location K. IMPRESSION: Multilevel degenerative disc disease, mild at L3-4 and moderate at L5-S1. Mild lower lumbar facet arthropathy.
== END 2024-08-24 15:39 | disposition home or self-care (01) ==
LOC: GOSHIMG 15:39
PROVIDERS: PCP Family Medicine; Visit Provider Physician Assistant Medical
DX: M53.3 Sacrococcygeal disorders, not elsewhere classified (principal); M51.36 Other intervertebral disc degeneration, lumbar region; M51.37 Other intervertebral disc degeneration, lumbosacral region
CPT/HCPCS: 72100; 72220

== ENCOUNTER 2024-09-11 04:28 | Emergency (ER) | payer OTHER, SELFPAY ==
--- NOTE | ~2024-09-11 | CT_ITS ---
Non-contrast Head CT History: Vertigo Technique: Axial non-contrast imaging of the brain was performed. Dose reduction technique was used on this scan by utilizing automated exposure control and iterative reconstruction technique. The dose -length product (DLP) was 605.33 mGy-cm. Findings: There is no evidence of intracranial hemorrhage, mass lesion, or acute infarct. Brain par enchyma appears normal. The ventricles and subarachnoid spaces are normal in size. The calvarium ap pears normal. The visualized paranasal sinuses and mastoid air cells are clear. Impression: No significant abnormality seen. Reviewed, dictated and finalized at location . Impression: No significant abnormality seen.
--- NOTE | 2024-09-11 04:33 | ECG_ITS ---
Test Date: 2024-09-11 05:02:55 Measurements Intervals [place] Rate: 65 P: 53 UT: 161 QRS: 21 QRSD: 81 T: 30 QT: 396 QTc: 412 Interpretive Statements SINUS RHYTHM No previous ECG available for comparison Electronically Signed On 09-11-2024 14:32:14 CDT by Alfred Tadeo M.D.
--- NOTE | 2024-09-11 04:40 | ED.GENADULT ---
HPI - General Adult General Chief complaint: Unspecified Stated complaint: dizzy after stretching Time Seen by Provider: 09/11/24 04:34 History of Present Illness HPI narrative: 44-year-old otherwise healthy female presenting to the emergency room with a chief complaint of sudden onset vertigo and headache. She states that she was getting up out of bed and noticed a significant sensation of headache in the back of her head that started radiating towards the top of her head and behind her eyes. This was associated loud wheezing sound in both her ears and sensation of vertigo. She is presently nauseous but has not had any vomiting. She states she has had vertigo before and was previously worked up for Meniere's disease but not any medications but states meclizine previously has helped her. Denies any trauma recent injuries. No history of aneurysms, stroke or closed head injuries. States that presently she does not have the whooshing sound years but feels nauseated and vertiginous. No appreciable weakness, sensory changes, chest pain, shortness a breath, neck pain. Was otherwise in her normal state of health recently. Related Data Home Medications Medication Instructions Recorded Confirmed ivermectin 1 % topical cream 1 applic topical DIRECTED 08/30/23 08/24/24 (Soolantra) Allergies Allergy/AdvReac Type Severity Reaction Status Date / Time butorphanol Allergy Intermediate Palpitation Verified 09/11/24 05:04 s egg Allergy Intermediate VOMITTING Verified 09/11/24 05:04 ketorolac Allergy Intermediate Palpitation Verified 09/11/24 05:04 s Review of Systems Review of Systems: As reviewed above in HPI [facility] Past Medical History Medical History Anxiety Depression Diarrhea Hypothyroidism, unspecified Migraine without aura and without status migrainosus, not intractable Morbid obesity Otitis media Rosacea Family History Family History Sibling Hypertension Patient's sister is in good health, Onset Age: 38 Patient's brother is in good health, Onset Age: 33 Family history of elevated blood lipids, Onset Age: 36 Diabetes mellitus Father Hypertension Family history of elevated blood lipids, Onset Age: 57 Family history of diabetes mellitus in first degree relative, Onset Age: 57 Diabetes mellitus Mother Family history of chronic obstructive pulmonary disease Family history of coronary artery disease, Onset Age: 54 Social History Social History Smoking status: Never smoker Second hand tobacco smoke exposure: No Alcohol intake: never Substance use: never Substance use type: does not use Living arrangements: with family Occupation/Education: occupation Gender identity (if verbalized by the patient): Female Sexual Orientation (if Verbalized by the Patient): Straight or Heterosexual Spiritual care concerns: No Exam Narrative: GENERAL: [Well-appearing, well-nourished, and in no acute distress.] HEAD: [Normocephalic, atraumatic.] EYES: [PERRLA and EOMI.] ENT: Nares clear, no rhinorrhea or epistaxis. Mucous membranes moist. NECK: Supple. CHEST: [Clear to auscultation. No respiratory distress.] HEART: [Regular rate and rhythm]. No murmur heard. [Normal peripheral pulses.] ABDOMEN: [Soft, nondistended], [nontender], [No rigidity or guarding] EXTREMITIES: Normal range of motion. [No edema.] SKIN: Warm, dry, no rash. NEURO: [No focal deficits]. Alert and oriented [x3.] No strength deficits, normal sensation throughout both arms and legs, no ataxia in the arms, eyes. No nystagmus. Extraocular movements full, cranial nerves are intact PSYCH: [Normal mood and affect.] Course Vital Signs Vital signs: Vital Signs Temperature 36.2 C L 09/11/24 04:59 Pulse Rate 64 09/11/24
[2024-09-11 04:59] VITALS: BP 132/91; PULSE 64; RESP 18; TEMP 36.2; O2SAT 97
[2024-09-11 05:03] VITALS: BP 132/91; PULSE 72; RESP 18; TEMP 36.2; O2SAT 98
[2024-09-11] MEDS: ONDANSETRON INJ 4 MG/2 ML VIAL IV PUSH (05:14)
[2024-09-11] MEDS: MECLIZINE HCL 25 MG TABLET PO (05:14)
[2024-09-11] MEDS: LACTATED RINGERS 1,000 ML 999 ML IV CONT (05:14)
[2024-09-11 05:22] LABS: BEDSIDEPREGUCG Negative (Negative)
[2024-09-11 05:26] LABS: Basophils Percent Auto 0.4 % (0.2-1.2); Eosinophils Absolute Auto 0.2 K/mm3 (0-0.3); Eosinophils Percent Auto 2.4 % (0-4.4); Hematocrit 39.6 % (37.0-47.0); Hemoglobin 13.7 g/dL (12.0-15.0); Immature Granulocyte Absolute 0.05 K/mm3 (0.00-0.031); Immature Granulocyte Percent A 0.7 % (0-0.5); Lymphocytes Absolute Auto 2.07 K/mm3 (0.9-3.2); Lymphocytes Percent Auto 27.2 % (18.3-44.2); Mean Corpuscular HGB Conc 34.6 g/dl (32-36); Mean Corpuscular Hemoglobin 32.4 pg (26-34); Mean Corpuscular Volume 93.6 fl (80-100); Mean Platelet Volume 10.4 fl (7.4-10.4); Monocytes Absolute Auto 0.6 K/mm3 (0.1-0.6); Monocytes Percent Auto 8.3 % (2.6-8.5); Neutrophils Absolute Auto 4.7 K/mm3 (1.3-6.7); Platelet Count Result 277 k/mm3 (150-375); Red Blood Count 4.23 M/mm3 (4.2-5.4); Red Cell Distribution Width 11.8 % (11.5-14.5); White Blood Count 7.6 K/mm3 (4.5-10.0)
[2024-09-11 05:30] LABS: Add Urine Microscopic? YES; Appearance Urine Turbid (Clear); Bacteria Urine 4+ /hpf; Bilirubin Urine Negative (Negative); Blood Urine Negative (Negative); Color Urine Yellow (Yellow); Glucose Urine UA Negative (Negative); Ketones Urine Negative (Negative); Leukocyte Esterase Ur Negative LEU/UL (Negative); Nitrate Urine Negative (Negative); Non Pathogenic Casts 0-2; Protein Urine Negative (Negative); RBC Urine 0-2 /hpf (0-2); Specific Grav Ur 1.022 (1.001-1.035); Squamous Epithelial Cell Urine Many /hpf (Few); Urobilinogen Urine 0.2 mg/dL (<2.0); WBC Urine 0-5 /hpf (0-3)
[2024-09-11 05:39] LABS: Anion Gap 10 mmol/L (4-12); Blood Urea Nitrogen 14 mg/dL (7-17); Calcium 9.3 mg/dL (8.4-10.2); Carbon Dioxide 22 mmol/L (22-30); Chloride 107 mmol/L (98-107); Estimated CRCL calculation 95 ml/min; Estimated Glomerular Filt Rate > 60; Glucose 100 mg/dL (65-110); Potassium 3.6 mmol/L (3.4-5.0); Sodium 139 mmol/L (137-145)
== END 2024-09-11 06:10 | disposition home or self-care (01) ==
PROVIDERS: Emergency Provider Student in an Organized Health Care Education/Training Program; PCP Family Medicine
DX: R42 Dizziness and giddiness (principal); E03.9 Hypothyroidism, unspecified; E66.01 Morbid (severe) obesity due to excess calories; Z68.41 Body mass index [BMI] 40.0-44.9, adult; Z79.899 Other long term (current) drug therapy; F41.9 Anxiety disorder, unspecified; F32.A Depression, unspecified
CPT/HCPCS: 36415; 70450; 80048; 81001; 81025; 85025; 93005; 96361; 96374; 99284; A9270; J2405; J7120

== ENCOUNTER 2024-11-26 12:41 | Emergency (ER) | payer OTHER, SELFPAY ==
[2024-11-26 12:52] VITALS: BP 126/86; PULSE 82; RESP 16; TEMP 36.7; O2SAT 100
--- NOTE | 2024-11-26 13:11 | ED.EAR ---
HPI - Ear Problem General Chief complaint: Ear Stated complaint: Ear pain Time Seen by Provider: 11/26/24 13:06 Source: patient and RN notes reviewed Mode of arrival: ambulatory Limitations: no limitations History of Present Illness HPI Narrative: Patient presents today complaining of left ear pain. States her dog marked very daryl closed her ear yesterday causing some immediate pain. Pain has worsened significantly over the past 2 hours. Currently rates her pain 5/10 and has tried no oslg-rjd-kewgwpi treatment prior to arrival. Denies any sick symptoms. Related Data Home Medications ?Medication ?Instructions ?Recorded ?Confirmed ?Last Taken ?Type ivermectin 1 % topical cream 1 applic topical DIRECTED 08/30/23 11/26/24 Unknown History (Soolantra) tirzepatide (weight loss) 10 10 mg subcut WEEKLY 11/26/24 11/26/24 Unknown History mg/0.5 mL subcutaneous pen injector (Zepbound) Allergies Allergy/AdvReac Type Severity Reaction Status Date / Time butorphanol Allergy Intermediate Palpitation Verified 11/26/24 12:45 s egg Allergy Intermediate VOMITTING Verified 11/26/24 12:45 ketorolac Allergy Intermediate Palpitation Verified 11/26/24 12:45 s Review of Systems Review of Systems: CONSTITUTIONAL: Denies body aches, fever, chills, or sweats. EYES: Denies visual changes, redness, or discharge. ENT: Denies rhinorrhea, congestion, sore throat. + left ear pain CARDIOVASCULAR: Denies chest pain, palpitations, or edema. RESPIRATORY: Denies cough or dyspnea. GASTROINTESTINAL: Denies abdominal pain, nausea, vomiting, or diarrhea. GENITOURINARY: Denies dysuria or hematuria. SKIN: Denies rash, itching, or wounds. MUSCULOSKELETAL: Denies back pain, joint pain, or myalgia. NEUROLOGIC: Denies headache, numbness, tingling, or weakness. PSYCH: Denies depression or anxiety. [facility] Past Medical History Medical History Morbid obesity Rosacea Anxiety Diarrhea Otitis media Depression Hypothyroidism, unspecified Migraine without aura and without status migrainosus, not intractable Family History Family History Sibling Hypertension Patient's sister is in good health, Onset Age: 38 Patient's brother is in good health, Onset Age: 33 Family history of elevated blood lipids, Onset Age: 36 Diabetes mellitus Father Hypertension Family history of elevated blood lipids, Onset Age: 57 Family history of diabetes mellitus in first degree relative, Onset Age: 57 Diabetes mellitus Mother Family history of chronic obstructive pulmonary disease Family history of coronary artery disease, Onset Age: 54 Social History Social History Smoking status: Never smoker Second hand tobacco smoke exposure: No Alcohol intake: never Substance use: never Substance use type: does not use Living arrangements: with family Occupation/Education: occupation Gender identity (if verbalized by the patient): Female Sexual Orientation (if Verbalized by the Patient): Straight or Heterosexual Spiritual care concerns: No Comments At time of signature, I have reviewed and agree with nursing past medical, surgical, social and family history unless otherwise noted. Please see nursing chart for further information. There is no relevant family history pertinent to the presenting complaint Exam Narrative: GENERAL: Well-appearing, well-nourished, and in no acute distress. HEAD: Normocephalic, atraumatic. EYES: EOMI. No redness or drainage. Conjunctivae normal. ENT: Mucous membranes pink and moist. Nares clear. No rhinorrhea. Right ear normal. Left ear: External ear and canal normal. TM normal without signs of infection or rupture. NECK: Normal AROM. CHEST: No respiratory distress. EXTREMITIES: Normal range of motion. No edema. SKIN: Warm, dry, no rash. Capillary refill normal. Normal skin turgor. NEURO: No focal deficits. Alert and oriented x3. Gait steady. PSYCH: Normal affect. No signs of depression or anxiety. Course Course Level of Care: Express Care Visit Vital Signs Vital signs: Vital Signs Temperature 98.1 F 11/26/24 12:52 Pulse Rate 82 11/26/24 12:52 Respiratory Rate 16 11/26/24 12:52 Blood Pressure 126/86 11/26/24 12:52 Pulse Oximetry 100 11/26/24 12:52 Temperature 98.1 F 11/26/24 12:52 Pulse Rate 82 11/26/24 12:52 Respiratory Rate 16 11/26/24 12:52 Blood Pressure 126/86 11/26/24 12:52 Pulse Oximetry 100 11/26/24 12:52 Reviewed Medical Decision Making MDM Narrative Medical decision making narrative: Ear exam is normal. Recommend myxc-jbb-yuczbbx medication with follow-up if no improvement. Differential Diagnosis Differential Diagnosis: Otitis media, otitis externa, ruptured TM, serous otitis Vital Signs Vital Signs: Vital Signs Temperature 98.1 F 11/26/24 12:52 Pulse Rate 82 11/26/24 12:52 Respiratory Rate 16 11/26/24 12:52 Blood Pressure 126/86 11/26/24 12:52 Pulse Oximetry 100 11/26/24 12:52 Temperature 98.1 F 11/26/24 12:52 Pulse Rate 82 11/26/24 12:52 Respiratory Rate 16 11/26/24 12:52 Blood Pressure 126/86 11/26/24 12:52 Pulse Oximetry 100 11/26/24 12:52 Critical Care Time Critical Care Time Critical Care Time: No Discharge Plan Discharge Clinical Impression: Acute pain of left ear Patient Disposition: Home, Self-Care Condition: Stable Instructions: Earache (ED) Additional Instructions: Your ear exam is normal today. Try some miyv-rsw-jcoynwp medications such as Tylenol or ibuprofen, if able. Warm compresses may also be helpful. Follow-up with your PCP in 1 week if symptoms persist. Your blood pressure was elevated above 120/80 today at Urgent Care. This puts you above the threshold for follow up. Please schedule a followup visit with your personal physician as soon as possible, for further evaluation and treatment. Even blood pressure exceeding 120/80 may indicate pre-hypertension. Patient Language: Tajik Prescriptions: No Action Zepbound 10 mg/0.5 mL pen injector 10 mg SUBCUT WEEKLY ivermectin [Soolantra] 1 % cream 1 applic TOPICAL DIRECTED meclizine 25 mg tablet 25 mg PO TID PRN (Reason: dizziness) 10 Days Qty: 30 0RF levothyroxine 175 mcg tablet 175 mcg PO DAILY Qty: 90 2RF sertraline 50 mg tablet 50 mg PO DAILY Qty: 30 1RF Follow-up/Referrals: Trey Shen MD [Primary Care Provider] - Time of Disposition: 13:15
== END 2024-11-26 13:19 | disposition home or self-care (01) ==
PROVIDERS: Emergency Provider Nurse Practitioner; PCP Family Medicine
DX: H92.02 Otalgia, left ear (principal); E03.9 Hypothyroidism, unspecified; E66.01 Morbid (severe) obesity due to excess calories
CPT/HCPCS: 99211; G0463

== ENCOUNTER 2024-12-21 10:52 | Outpatient (CLI) | payer OTHER, SELFPAY ==
--- NOTE | ~2024-12-21 | MMUS_ITS ---
EXAMINATION: MM diagnostic shen BI w mauro, US breast LT complete HISTORY: Palpable left breast lump with swelling of the axillary lymph nodes TECHNIQUE: Additional 3-D tomosynthesis images of the breasts were performed and synthetic 2-D images were generated. CAD analysis was submitted and interpreted. High resolution complete left breast ult rasound was performed. COMPARISON: Comparison to multiple prior studies sequentially, with oldest reviewed study dated 07/23. BREAST PARENCHYMAL COMPOSITION: Not dense: There are scattered areas of fibroglandular density. FINDINGS: MAMMOGRAPHIC FINDINGS: In the area of palpable abnormality in the upper central aspect of the left breast there is a develop ing focal asymmetry. There are no suspicious masses, calcifications or architectural distortion in th e right breast to suggest malignancy. ULTRASOUND: Complete US of all 4 quadrants of the left breast/s, axilla and retroareolar region was reviewed. The re are multiple small cysts of the left breast. In the area of palpable concern at 11:00, 8 cm from t he nipple there is an irregular shaped heterogeneous mass with angular margins measuring 1.7 x 1.6 x 1.4 cm. No significant internal vascularity or posterior features. In the left axilla or abnormal pathologic appearing lymph nodes measuring up to 2.9 and 3.5 cm respec tively. IMPRESSION: 1. Abnormal left breast mass and left axillary lymph nodes described above. 2. Ultrasound-guided biopsy of each of these masses recommended. BI-RADS category 4, suspicious findings. Reviewed, dictated and finalized at location A. ITE DESIGNER IMPRESSION: 1. Abnormal left breast mass and left axillary lymph nodes described above. 2. Ultrasound-guided biopsy of each of these masses recommended. BI-RADS category 4, suspicious findings.
--- OUTSIDE RECORDS SUMMARY | 2024-12-22 04:26 | XMS_ITS | Data Portability ---
Author Organization [facility], Main Office Address [address] [place] [address] Assessment No assessment recorded. Plan of Treatment Reminders Order Date Submit Date Provider Last Modified By Organization Details Last Modified Time Details Appointments None recorded. Lab None recorded. Referral None recorded. Procedures None recorded. Surgeries None recorded. Imaging audiogram + tympanogram 2023 024 APOLONIA Located Within [facility], [address] [place] [address], [facility] [address], [place], [address], 4 05:55:22 Medication Orders None recorded. Patient TargetsNo targets recorded. Patient Instructions Encounter Date Encounter Id Patient Instructions Last Modified By Organization Details Last Modified Time 09/13/2024 [id number] alia-hallpike test* APOLONIA Not available 11/08/2024 04:26:56 continue use of meclizine as needed for vertigo symptoms. She will see PT for Alia-Hallpike testing for possible BPPV. We will also obtain an audiogram and tympanogram for further testing. [email or web address] Not available 09/13/2024 16:04:48 Reason for Referral None Reported. Problems Name Problem SNOMED Code Status Onset Date Resolution Date Notes Provider Name and Address Organization Details Recorded Time Vertigo 341156192 Active 2023 Prince Calderon CMA null, [facility] 4 15:59:06 Sensorineural hearing loss 27321239 Active 2023 Prince Calderon CMA null, [facility] 4 16:00:48 Benign paroxysmal positional vertigo 240885495 Active 2023 HUGH Arrington [address] [facility], [facility] [address], [place], [address] , [place] [facility] 16:03:52 Problem Notes None recorded. Procedures Surgical History Date Name Laterality Status Provider Name and Address Organization Details Recorded Time 07/31/20 19 Tubal Ligation completed Prince Calderon CMA [facility] 09/13/2024 15:42:59 12/30/19 04 cholecystectomy completed Prince Calderon CMA [facility] 09/13/2024 15:42:31 Imaging Results None recorded. Procedure Notes None recorded. Medical Equipment None Reported. Allergies Allergen ID Allergen Name Allergen Category Reaction Reaction Severity Criticality Documentation Date Start Date Code Code System Note Provider Name and Address Organization Details Recorded Time 68995 Toradol medicatio n palpitati ons Not available Not available 09/12/2024 45402 RxNorm Lynn Bustamantencer [facility] 12:54:34 15805 Stadol medicatio n palpitati ons Not available Not available 09/13/2024 74365 RxNorm Prince Calderon CMA [facility] 15:38:10 Medications Name Sig Start Date Stop Date Status Note LastModified by Organization Details LastModified Time amoxicillin 500 mg capsule TAKE 1 CAPSULE BY MOUTH THREE TIMES DAILY UNTIL GONE 09/13 completed Not Available Not Available Not Available levothyroxi ne 175 mcg tablet TAKE 1 TABLET BY MOUTH ONCE DAILY active Not Available Not Available No t Available fluconazole 150 mg tablet TAKE 1 TABLET BY MOUTH ONCE DAILY active Not Available Not Available No t Available meclizine 25 mg tablet TAKE 1 TABLET BY MOUTH THREE TIMES DAILY NEEDED FOR DIZZINESS FOR 10 DAYS active Not Available Not Available No t Available scopolamine 1 mg over 3 days transdermal patch APPLY 1 PATCH TOPICALLY EVERY 72 HOURS NEEDED MOTION SICKNESS. active Not Available Not Available No t Available methylpredn isolone 4 mg tablets in a dose pack TAKE BY MOUTH DIRECTED ON INSIDE OF PACKAGE active Not Available Not Available No t Available sertraline 50 mg tablet TAKE 1 TABLET BY MOUTH ONCE DAILY active Not Available Not Available No t Available metoclopram danielle 10 mg tablet TAKE 1/2 (ONE-HALF ) TABLET BY MOUTH EVERY 6 HOURS NEEDED FOR NAUSEA AND VOMITING active Not Available Not Available No t Available amoxicillin 500 mg-potassiu m clavulanate 125 mg tablet TAKE 1 TABLET BY MOUTH EVERY 12 HOURS FOR 7 DAYS 09/13 completed Not Available Not Available Not Available Soolantra 1 % topical cream APPLY TO THE AFFECTED AREA(S) ONCE DAILY active Not Available Not Available No t Available Saxenda 3 mg/0.5 mL (18 mg/3 mL) subcutaneou s pen injector INJECT 1/2 (ONE-HALF ) ML (3MG) SUBCUTANE OUSLY ONCE DAILY active Not Available Not Available No t Available Zepbound 5 mg/0.5 mL subcutaneou s pen injector 09/13 completed Not Available Not Available Not Available Zepbound 2.5 mg/0.5 mL subcutaneou s pen injector active Not Available Not Available Not Available Zepbound active Not Available Not Avai lable Not Available Vitals Date Recorded Body weight Body temperature Body mass index (BMI) Body height Provider Name and Address Organization Details Last Updated DateTime 09/13/2024 508420.2 g 98 [degF] 45 kg/m2 162.56 cm Prince Calderon CMA [facility] 09/13/2024 15:37:32 Social History Question Answer Notes LastModified by Organizat ion Details LastModified Time Tobacco Smoking Status Never Smoker Lynnxavier Bustamanterhoda sumner [facility] 09/12/2024 12:56:45 What Is Your Level Of Alcohol Consumption? None [email or web address] Information not available 09/12/2024 What Is Your Level Of Caffeine Consumption? Occasional Coffee [email or web address] Information not available 09/13/2024 Sex: Unknown Functional Status None recorded. Mental Status None recorded. Family History Relationship Description Onset Age of this Age Resolved Age Notes LastModified by Organization Details LastModified Time Father Diabetes mellitus [email or web address] Not available 2023 15:43:22 Father Family history of stroke Not available 2023 15:43:39 Mother Heart disease [email or web address] Not available 2023 15:43:46 Medical History Condition Response MRSA N ALLERGIES/HAYFEVER N BACK INJECTIONS N LUNG DISEASE/DISORDER N ESRD N HISTORY OF DRUG ABUSE N INSOMNIA N COPD N RADIATION / CHEMOTHERAPY N HIGH CHOLESTEROL / HYPERLIPIDEMIA N HYPERTHYROIDISM Y PVD N BLOOD DISEASES N EAR OR HEARING PROBLEMS N HYPOTHYROIDISM N SHINGLES N DEPRESSION (INCLUDING POST ) N BACK / NECK PROBLEMS N HAVE YOU BEEN HOSPITALIZED OR SEEN IN [facility] ER IN THE PAST YEAR ? N FAILED BACK SYNDROME N STROKE/TIA N POLYCYSTIC OVARIES N OBESITY N ANEURYSM N HISTORY WITH COMPLICATIONS WITH ANESTHES IA ? N Do you have Advance directive? N USE OF BLOOD THINNERS N NO SIGNIFICANT PAST MEDICAL HISTORY N DIABETES, TYPE N VON WILLIBRAND'S DISEASE N PARATHYROID DISEASE N ENT N SEASONAL ALLERGIES N HEARTBURN / REFLUX N POST LAMINECTOMY SYNDROME N HEPATITIS / LIVER DISEASE N SLEEP DISORDER N ARTERIAL INSUFFICIENCY N SEIZURES/EPILEPSY N HEADACHES/MIGRAINES N CHF N PACEMAKER N DIZZINESS N HEART DISEASE/HEART PROBLEMS N AIDS/HIV N NEUROPSYCHOLOGICAL N HYPERTENSION N CANCER: SPECIFY N TOURETTE'S N BLOOD TRANSFUSION N ANESTHESIA COMPLICATIONS N ANEMIA/BLOOD DISORDER N CHRONIC EAR INFECTIONS N ATRIAL FIBRILLATION N AUTOIMMUNE DISEASE N TUBERCULOSIS N Gynecological HistoryNo gynecological history recorded. Obstetrics History GPAL:G 0 P 0 0 0 0 Past Encounters Encounter ID Performer Location Encounter Start Date Encounter Closed Date Diagnosis/Indication Diagnosis SNOMED-CT Code Diagnosis ICD10 Code Diagnosis Note [id number] HUGH Arrington [facility] [address] [place] [address] 09/13/2024 15:26:45 09/13/2024 16:05:18 Benign paroxysmal positional vertigo 573649855 H81.10 Health Concerns Section Related Observation LastModified by Organization Detai ls LastModified Time None Recorded Concern Status LastModified by Organization Details LastModified Time None Recorded Advance Directives Directive None Recorded Payers Encounter Date Sequence Insurance Name Policy Number Policy Castro Covered Member ID Castro Member ID Guarantor Name 09/13/2024 1 [employer] - OPEN ACCESS Austin Dong [id number] Austin Dong Notes Date Note Type Note Provider Name and Address Organization Details Recorded Time 09/13/2024 text/html this patient has a past medical history significant for hypothyroidism. She presents to the office with a complaint of vertigo. She states that she does have a history with vertigo beginning in her early 20s. During that time there was a cause for concern for possible Meniere's disease but due to the fear of the diagnosis she did not have any further testing completed. She does note that her great aunt has Meniere's disease but was not diagnosed until her mid to late 60s. she states that on Wednesday while she was sleeping she was awoken with vertigo at approximately 3:40 a.m. in the morning. She also notes that she had a loud noise to her bilateral ears. She states that she was able to hear but things were muffled. after her vertigo resolved she developed a posterior headache. This had concerned her and she presented to the ER for further evaluation. She had a CT of her head that was negative. The ER physician had also mentioned to her about Meniere's disease. She states that when she tips my head back too far this gives me vertigo. She is taking meclizine as needed for symptom management. She does note that her previous vertigo symptoms had also begun during her sleeping periods. She also notes if she moves her head ipvx-kq-[id number] quickly this can also elicit symptoms. She also reports that when her spouse was watching football on the television the other day, this too was causing vertigo like symptoms. Bettie Ibarra, CORPORATE LEARNING CONSULTANT [address] [facility], [facility] [address], [place], [address], [facility] 09/13/2024 16:04:52 OBGyn Episode No OBEpisode recorded.
== END 2024-12-21 10:53 | disposition home or self-care (01) ==
LOC: ANHIMG 10:53
PROVIDERS: PCP Family Medicine; Visit Provider Physician Assistant Medical
DX: N63.20 Unspecified lump in the left breast, unspecified quadrant (principal); R92.8 Other abnormal and inconclusive findings on diagnostic imaging of breast
CPT/HCPCS: 76641; 77062; 77066; G0279

== ENCOUNTER 2025-01-22 07:37 | Outpatient (CLI) | payer OTHER, SELFPAY ==
--- NOTE | ~2025-01-22 | MMUS_ITS ---
CORRECTED REPORT Corrected examination description [facility] 01/23/25 This report was recreated on 01/23/25. Original report was PHYSICIAN EXAMINATION: 1. US biopsy st axilla w/ imaging 2. MM post biopsy diagnostic LT 3. US breast biopsy LT w image DATE: 01/22/2025 09:21 INDICATION: Unspecified lump in left breast. Left axillary lymphadenopathy. TECHNIQUE: The procedure including the risks, benefits, and alternatives was discussed with the patient. Risks discussed included bleeding and infection. The patient understood the risks and agreed to proceed. The skin of the left breast was prepped and draped in usual sterile fashion. Anesthetic was administered with 1% lidocaine at the skin and 1% lidocaine with epinephrine in the deeper tissue. A 10-gauge vacuum-assisted core biopsy needle was then used to obtain 4 core biopsy specimens under continuous sonographic guidance. A Mammotome HydroMARK open coil marker was placed under sonographic guidance The entry site was cleaned and dressed. There were no immediate complications. The skin overlying the left axilla was prepped and draped in usual sterile fashion. Anesthetic was administered with 1% lidocaine subcutaneously. An 18 gauge core biopsy needle was then used to obtain 6 core biopsy specimens under continuous sonographic guidance. The entry site was cleaned and dressed. There were no immediate complications. A two-view mammogram was obtained to document marker placement. FINDINGS: Ultrasound images demonstrate the needle in a 1.7 cm mass at 11:00, 8 cm from the nipple. Ultrasound images demonstrate the needle in a 3.6 x 4.3 x 1.6 cm left axillary lymph node Breast composition: There are scattered areas of fibroglandular density. Mammogram: There is an open coil marker in the left breast at 11:00. IMPRESSION: 1. Successful ultrasound-guided vacuum-assisted biopsy of a 1.7 cm mass in the left breast at 11:00, 8 cm from the nipple with post procedure mammogram for marker placement. 2. Successful ultrasound-guided core needle biopsy of an enlarged left axillary lymph node. Reviewed, dictated and finalized at location A. PHYSICIAN MTDD IMPRESSION: 1. Successful ultrasound-guided vacuum-assisted biopsy of a 1.7 cm mass in the left breast at 11:00, 8 cm from the nipple with post procedure mammogram for ma rker placement. 2. Successful ultrasound-guided core needle biopsy of an enlarged left axillary lymph node. IMPRESSION: 1. Successful ultrasound-guided vacuum-assisted biopsy of a 1.7 cm mass in the left breast at 11:00, 8 cm from the nipple with post procedure mammogram for ma rker placement. 2. Successful ultrasound-guided core needle biopsy of an enlarged left axillary lymph node.
--- OUTSIDE RECORDS SUMMARY | 2025-01-22 07:40 | XMS_ITS | Referral Summary ---
Author Organization [facility] Physician Office Building [address] [place] [id number] Care Team Providers Care History Instructor Name Role Phone Trey Shen MD Primary Care Provider Encounters Date Type Department Care Team Description 12/05/2024 4:00 PM FOUNDRY TECHNICIAN Telemedicine [facility] Services [address] [place] [address] [address] [place] [address] Carmela Siddiqui PA Encounter for weight loss counseling (Primary Dx); Metabolic syndrome; Obesity, Class III, BMI 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) (HCC); Acquired hypothyroidism; Vitamin D deficiency; Encounter for exercise counseling; Body mass index 45.0-49.9, adult (HCC) 11/15/2024 Telephone [facility] Diabetes [facility] Nutrition Services [facility] Medical Office Building 4, [address] [place] [address] Carmela Siddiqui PA Med Refill from Last 3 Months Allergies Active Allergy Reactions Criticality Noted Date Comments Butorphanol Palpitations Low 03/21/2018 Ketorolac Palpitations Low 03/21/2018 Medications levothyroxine (SYNTHROID) 175 mcg tablet Take 1 tablet (175 mcg total) by mouth daily 06/17/2024 Active Soolantra 1 % cream APPLY TO THE AFFECTED AREA(S) ONCE DAILY 04/07/2024 Active sertraline (ZOLOFT) 50 mg tablet Take 1 tablet (50 mg total) by mouth daily 08/21/2024 Active tirzepatide, weight loss, (ZEPBOUND) 10 mg/0.5 mL pen injectorIndicat ions:Obesity, Class III, BMI 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) (HCC),Body mass index 45.0-49.9, adult (HCC) Inject 0.5 mL (10 mg total) under the skin every 7 days 2 mL 4 12/05/2024 Active Active Problems Problem Noted Date Diagnosed Date Encounter for exercise counseling 12/05/2024 Assessment & Plan (12/05/2024 3:05 PM FOUNDRY TECHNICIAN): I counseled the patient on exercise: Recommend 36 min. cardio daily. Based on availiable data on the secondary prevention of coronary heart disease, stroke and prediabetes, physical activity is potentially as active as many drug interventions.Omar Mccord: BMJ 2013 347:f5577;08/2013; Diabetes Care, Volume 35, Oct 2012. Reviewed recommendation/goal of >/= 150 minutes/week moderate intensity aerobic exercise. Discussed need for weightbearing exercise in order to promote muscle gain and burning fat. Body mass index 45.0-49.9, adult 12/05/2024 Assessment & Plan (12/05/2024 3:57 PM FOUNDRY TECHNICIAN): Patient's highest BMI was 48.6 ; initial BMI was 46.8; this has improved to 41.07 through medical management Vitamin D deficiency 09/12/2024 Assessment & Plan (12/05/2024 3:06 PM FOUNDRY TECHNICIAN): Continue vitamin-D supplementation Assessment & Plan (09/12/2024 4:10 PM CDT): start vitamin-D replacement 5,000IU daily Encounter for weight loss counseling 07/11/2024 Assessment & Plan (12/05/2024 3:05 PM FOUNDRY TECHNICIAN): Reviewed importance of adequate protein intake. Reviewed recommendation/goal of >/= 150 minutes/week moderate intensity aerobic exercise. Discussed okay to not track food/calories but that if they start to struggle or are not losing weight, this is a useful tool to help refocus. Discussed limiting calorie intake with restaurant options including planning meals prior to ordering, eating only half the meal, and substituting certain items. Assessment & Plan (09/12/2024 3:15 PM CDT): Reviewed importance of adequate protein intake. Reviewed recommendation/goal of >/= 150 minutes/week moderate intensity aerobic exercise. Discussed okay to not track food/calories but that if they start to struggle or are not losing weight, this is a useful tool to help refocus. Discussed limiting calorie intake with restaurant options including planning meals prior to ordering, eating only half the meal, and substituting certain items. Assessment & Plan (07/11/2024 11:10 AM CDT): Reviewed importance of adequate protein intake. Reviewed recommendation/goal of >/= 150 minutes/week moderate intensity aerobic exercise. Discussed limiting calorie intake with restaurant options including planning meals prior to ordering, eating only half the meal, and substituting certain items. Metabolic syndrome 07/11/2024 Assessment & Plan (12/05/2024 3:05 PM FOUNDRY TECHNICIAN): Obesity is one of the leading risk factor for mortality. Metabolically healthy obese individuals had 49% increased risk of coronary artery disease, 7% increased risk of cerebrovascular disease and 96% increased risk of heart failure. In other words, even individuals who are normal weight can have metabolic abnormalities and similar risk for cardiac vascular disease events. Thus, the complications that may result from metabolic syndrome and frequently serious and chronic. They include atherosclerosis, diabetes, myocardial infarction, renal disease, cardiovascular events such as stroke, nonalcoholic fatty liver disease, peripheral artery disease, and cardiovascular diseases. His diabetes develops; there is an increased risk of retinopathy, neuropathy, renal disease and amputation of limbs. Therefore, treating obesity, obesity related diseases is exceedingly crucial. Improving the hypertrophic adipocytes function and decrease insulin resistance is the main goal of the treatment. Furthermore, an emerging concept that the anti-obesity agents must not only reduce the hypertrophic adipocytes but must also correct the fat dysfunction, adiposopathy. Weight loss is associated with increases in mean suppression of glucose production from baseline, is associated with increase insulin stimulated in glucose disposal from fat-free mass and weight loss increased beta cell function. In other words, weight loss change in hepatic insulin sensitivity and muscle insulin sensitivity, beta cell function and a 24-hour plasma glucose and insulin profiles. Our goal is and decreasing the weight between 16 and 20% which will significantly decrease the risk of morbidity and mortality. Assessment & Plan (09/12/2024 4:06 PM CDT): Continue low carb, low glycemic diet. Austin is currently on Zepbound. Continue titration of medication as tolerated. Assessment & Plan (07/11/2024 11:11 AM CDT): Continue low carb, low glycemic diet. Add Zepbound to current regimen. Start Zepbound 2.5mg weekly for 4 weeks then 5mg weekly for 4 weeks then 7.5mg weekly for 4 weeks then 10mg weekly for 4 weeks then 12.5mg weekly for 4 weeks then 15mg weekly This medication is combination of GIP/GLP1 agonist. Common side effcts are nausea, vomiting, indigestion, abdominal pain, diarrhea or constipation and decreased appetite. You should not use this medication if you or your family member has Medullary Thyroid cancer or Multiple Endocrine Neoplasia Syndrome type 2. While you are taking this medication, you may develop pancreatitis, low blood sugar, kidney failure, change in vision, severe stomach problems and galldbladder problems. If you experience any unusual symptoms, contact the office. Discussed options and will add GLP-1 analog. Discussed risks, benefits, alternatives, potential side effects. No personal or family history of MTC or MEN2. Reviewed dosing/titration; for patients seen in the office, reviewed proper administration using demo pen; reviewed appropriate storage. Referred to websites for additional instructions/info/video. increase physical activity, water, and protein (eat protein first, veggies, fruits, starchy veggies, legumes, grains) Ordered the following labs today: CBC, CMP, Folate, Hemoglobin A1C, Hepatic Function Panel, Total Insulin, Iron Profile w/ IBC, Lipid Panel, Vitamin B12, and Vitamin D Obesity, Class III, BMI 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) 03/21/2018 Assessment & Plan (12/05/2024 4:18 PM FOUNDRY TECHNICIAN): Reviewed most recent labs. Continue low carb, low glycemic diet. Austin is currently on Zepbound. Continue medication at current dose. Take Miralax - 1 capful twice daily until you have a bowel movement and then decrease to either a one full capful or half scoop mixed in water every night as needed for constipation May consider zepbound further in the future if no continued improvement. increase physical activity, water, and protein (eat protein first, veggies, fruits, starchy veggies, legumes, grains) Increase to 80+ fl oz daily Increase protein intake to 70-90g daily Try to increase intentional physical activity and add in some strength training (resistance bands, weight, yoga, or pilates) Reviewed importance of adequate protein intake. Reviewed recommendation/goal of >/= 150 minutes/week moderate intensity aerobic exercise. Assessment & Plan (09/12/2024 4:10 PM CDT): Continue low carb, low glycemic diet. Austin is currently on Zepbound. Continue titration of medication as tolerated. increase physical activity, water, and protein (eat protein first, veggies, fruits, starchy veggies, legumes, grains) Can take miralax 1 capful twice daily until you have a bowel movement, then decarease and Take Miralax half scoop mixed in water every night as needed for constipation Start Vit D 5,000IU daily Reviewed importance of adequate protein intake. Reviewed recommendation/goal of >/= 150 minutes/week moderate intensity aerobic exercise. Assessment & Plan (07/11/2024 11:09 AM CDT): Continue low carb, low glycemic diet. Add Zepbound to current regimen. Start Zepbound 2.5mg weekly for 4 weeks then 5mg weekly for 4 weeks then 7.5mg weekly for 4 weeks then 10mg weekly for 4 weeks then 12.5mg weekly for 4 weeks then 15mg weekly This medication is combination of GIP/GLP1 agonist. Common side effcts are nausea, vomiting, indigestion, abdominal pain, diarrhea or constipation and decreased appetite. You should not use this medication if you or your family member has Medullary Thyroid cancer or Multiple Endocrine Neoplasia Syndrome type 2. While you are taking this medication, you may develop pancreatitis, low blood sugar, kidney failure, change in vision, severe stomach problems and galldbladder problems. If you experience any unusual symptoms, contact the office. Discussed options and will add GLP-1 analog. Discussed risks, benefits, alternatives, potential side effects. No personal or family history of MTC or MEN2. Reviewed dosing/titration; for patients seen in the office, reviewed proper administration using demo pen; reviewed appropriate storage. Referred to websites for additional instructions/info/video. Assessment & Plan (03/21/2018 12:21 PM CDT): Obesity is worsening. Discussed the patient's BMI. The BMI is above average; BMI management plan is completed. General weight loss/lifestyle modification strategies discussed (elicit support from others; identify saboteurs; non-food rewards, etc). Behavioral treatment: stress management. Diet interventions: diet diary indefinitely and moderate (500 kCal/d) deficit diet. Informal exercise measures discussed, e.g. taking stairs instead of elevator. Regular aerobic exercise program discussed. Pharmacotherapy as ordered. - pt. Has to cut back her total calorie intake to no more than 1500 nas per day - increase physical activity and do interval training and include resistance exercises - will start pt. On phentermine - topiramate 7.5- 46 mg ER - one tab oral daily - also discussed with pt. regarding surgical options for weight loss - follow up in 3 months Acquired hypothyroidism 03/21/2018 Assessment & Plan (12/05/2024 3:05 PM FOUNDRY TECHNICIAN): Continue current dose of levothyroxine. Assessment & Plan (09/12/2024 4:05 PM CDT): Continue current dose of levothyroxine. Assessment & Plan (07/11/2024 11:04 AM CDT): Hypothyroidism Continue current dose of levothyroxine. Assessment & Plan (03/21/2018 12:18 PM CDT): Advised to continue taking Synthroid 150 mcg oral daily Recheck TFT in 4 weeks Instructions for taking levothyroxine Brand name is preferred Take thyroid pill all by itself Take thyroid pill one hour before food or 2 to 3 hours after food Heat, humidity, and direct sunlight will cause a loss of potency Never store thyroid pill in the bathroom The medication should be taken daily. If one or more pills are missing in a week, they can be taken all together at once, making sure at the end of the week, 7 tabs have been taken. Social History Tobacco Use Types Packs/Day Years Used Date Smoking Tobacco: Never Passive Smoke Exposure: Never Smokeless Tobacco: Never Tobacco Cessation:Counseling Given: Not Answered Alcohol Use Standard Drinks/Week Comments Yes 0 (1 standard drink = 0.6 oz pur e alcohol) Comments Unknown Sex and Gender Information Value Date Recorded Sex Assigned at Not on file Legal Sex Female 7:08 PM FOUNDRY TECHNICIAN Gender Identity Not on file Sexual Orientation Not on file Last Filed Vital Signs Vital Sign Reading Time Taken Comments Blood Pressure 121/81 09/12/2024 3:42 PM CDT Pulse 78 09/12/2024 3:42 PM CDT Temperature 36.7 C (98 F) 07/11/2024 10:32 AM CDT Respiratory Rate 18 03/21/2018 11:2 1 AM CDT Oxygen Saturation 98% 09/12/2024 3:42 PM CDT Inhaled Oxygen Concentration - - Weight 108.6 kg (239 lb 6.4 oz) 12/05/2024 3:55 PM FOUNDRY TECHNICIAN Height 162.6 cm (5' 4.02 ) 12/05/2024 3:55 PM CS T Body Mass Index 41.07 12/05/2024 3:55 PM FOUNDRY TECHNICIAN Plan of Treatment Not on file Insurance [employer] [facility] [id number] Care Teams History Instructor Relationship Specialty Start Date End Date Trey Shen MD [address] [facility] [address] [place] [address] PCP - General Family Medicine 03/10/18
--- OUTSIDE RECORDS SUMMARY | 2025-01-22 07:41 | XMS_ITS | Clinical Summary ---
Author Organization [facility] Physician Office Building [address] [place] [phone] Care Team Providers Care Marketing Coordinator Name Role Phone Trey Shen MD Primary Care Provider Allergies Active Allergy Reactions Criticality Noted Date [...] 12/05/2024 Assessment & Plan (12/05/2024 3:05 PM ENGINE BOSS): I counseled the patient on exercise: Recommend [...] 12/05/2024 Assessment & Plan (12/05/2024 3:57 PM ENGINE BOSS): Patient's highest BMI was 48.6 ; initial BMI was 46.8; this has improved to 41.07 through medical management Vitamin D deficiency 09/12/2024 Assessment & Plan (12/05/2024 3:06 PM ENGINE BOSS): Continue vitamin-D supplementation Assessment & Plan (09/12/2024 4:10 PM CDT): start vitamin-D replacement 5,000IU daily Encounter for weight loss counseling 07/11/2024 Assessment & Plan (12/05/2024 3:05 PM ENGINE BOSS): Reviewed importance of adequate protein intake. Reviewed [...] 07/11/2024 Assessment & Plan (12/05/2024 3:05 PM ENGINE BOSS): Obesity is one of the leading risk [...] 03/21/2018 Assessment & Plan (12/05/2024 4:18 PM ENGINE BOSS): Reviewed most recent labs. Continue low carb, [...] 03/21/2018 Assessment & Plan (12/05/2024 3:05 PM ENGINE BOSS): Continue current dose of levothyroxine. Assessment & [...] the week, 7 tabs have been taken. Encounters Date Type Department Care Team Description 12/05/2024 4:00 PM ENGINE BOSS Telemedicine [facility] Diabetes and Nutrition Services [address] [place] [address] [address] [place] [address] Carmela Siddiqui PA Encounter for weight loss counseling (Primary Dx); Metabolic syndrome; Obesity, Class III, BMI 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) (HCC); Acquired hypothyroidism; Vitamin D deficiency; Encounter for exercise counseling; Body mass index 45.0-49.9, adult (HCC) 11/15/2024 Telephone [facility] Diabetes and Nutrition Services [address] Medical Office Building 4, [address] [place] [address] Carmela Siddiqui PA Med Refill from Last 3 Months Surgical History Surgery Date Site/Laterality Comments CHOLECYSTECTOMY Medical History Medical History Date Comments Hypothyroidism IBS (irritable bowel syndrome) GERD (gastroesophageal reflux disease) Hypoglycemia Rosacea Family History Medical History Relation Name Comments Diabetes Brother Hyperlipidemia Brother Hypertension Brother Diabetes Father Hyperlipidemia Father Hypertension Father Stroke Father COPD Mother Diabetes Mother Heart disease Mother Hyperlipidemia Mother Hypertension Mother Diabetes Sister Hyperlipidemia Sister Hypertension Sister Hypothyroidism Sister Irritable bowel syndrome Sister Relation Name Status Comments Brother Father Mother Sister Social History Tobacco Use Types Packs/Day Years Used Date Smoking Tobacco: Never Passive Smoke Exposure: Never Smokeless Tobacco: Never Tobacco Cessation:Counseling Given: Not Answered Alcohol Use Standard Drinks/Week Comments Yes 0 (1 standard drink = 0.6 oz pur e alcohol) Comments Unknown Sex and Gender Information Value Date Recorded Sex Assigned at Not on file Legal Sex Female 7:08 PM ENGINE BOSS Gender Identity Not on file Sexual Orientation Not on file Obstetrics History Last Filed Vital Signs Vital Sign Reading Time Taken Comments Blood Pressure 121/81 09/12/2024 3:42 PM CDT Pulse 78 09/12/2024 3:42 PM CDT Temperature 36.7 C (98 F) 07/11/2024 10:32 AM CDT Respiratory Rate 18 03/21/2018 11:2 1 AM CDT Oxygen Saturation 98% 09/12/2024 3:42 PM CDT Inhaled Oxygen Concentration - - Weight 108.6 kg (239 lb 6.4 oz) 025 3:55 PM ENGINE BOSS Height 162.6 cm (5' 4.02 ) 12/05/2024 3:55 PM CS T Body Mass Index 41.07 12/05/2024 3:55 PM ENGINE BOSS Plan of Treatment Health Maintenance Due Date Last Done Comments Breast Cancer Screening-Mammogram 1978 Cervical Cancer Screening 1978 Colon Cancer Screening-Colonoscopy 1978 Hepatitis C Screening 1978 DTaP/Tdap/Td Vaccine (1 - Tdap) 1989 Hepatitis B Screening 02/05/1996 Regular Well Visit/Exam 18-64 02/05/1996 Depression Screening 03/21/2019 03/21/2018 Covid-19 Vaccine (2023-2 5 season) 2024 03/07/2021 Influenza Vaccine (#1) 2024 HPV Vaccines Aged Out No longer eligi ble based on patient's age to complete this topic Pneumococcal vaccine <65 Aged Out No longer eligible based on patient's age to complete this topic Insurance [employer] [facility] [id number] Care Teams Marketing Coordinator Relationship Specialty Start Date End Date Trey Shen MD [address] [address] PCP - General Family Medicine 03/10/18
--- OUTSIDE RECORDS SUMMARY | 2025-01-22 07:41 | XMS_ITS | Data Portability ---
Author Organization [facility], Main Office Address 1 [place] [address] Assessment No assessment recorded. Plan of Treatment Reminders Order Date Submit Date Provider Last Modified By Organization Details Last Modified Time Details Appointments None recorded. Lab None recorded. Referral None recorded. Procedures None recorded. Surgeries None recorded. Imaging audiogram + tympanogram 2023 024 APOLONIA [facility], [address] [place] [address], [facility] C, [place], [address], 4 05:55:22 Medication Orders None recorded. Patient TargetsNo targets recorded. Patient Instructions Encounter Date Encounter Id Patient Instructions Last Modified By Organization Details Last Modified Time 09/13/2024 [id number] alia-hallpike test* APOLONIA Not available 11/08/2024 04:26:56 continue use of meclizine as needed for vertigo symptoms. She will see PT for Barnhart-Hallpike testing for possible BPPV. We will also obtain an audiogram and tympanogram for further testing. [email or web address] Not available 09/13/2024 16:04:48 Reason for Referral None Reported. Problems Name Problem SNOMED Code Status Onset Date Resolution Date Notes Provider Name and Address Organization Details Recorded Time Vertigo 746651727 Active 2023 Prince Calderon CMA null, [facility] 4 15:59:06 Sensorineural hearing loss 18776656 Active 2023 Prince Calderon CMA null, [facility] 4 16:00:48 Benign paroxysmal positional vertigo 072120437 Active 2023 HUGH Arrington [address] [facility], [facility] [address], [place], [address] , [place] [facility] 16:03:52 Problem Notes None recorded. Procedures Surgical History Date Name Laterality Status Provider Name and Address Organization Details Recorded Time 07/31/20 19 Tubal Ligation completed Prince Calderon CMA [facility] 09/13/2024 15:42:59 12/30/19 04 cholecystectomy completed Prince Calderon CMA [facility] 09/13/2024 15:42:31 Imaging Results None recorded. Procedure Notes None recorded. Medical Equipment None Reported. Allergies Allergen ID Allergen Name Allergen Category Reaction Reaction Severity Criticality Documentation Date Start Date Code Code System Note Provider Name and Address Organization Details Recorded Time 35025 Toradol medicatio n palpitati ons Not available Not available 09/12/2024 69361 RxNorm Lynn Bustamantencer [facility] 12:54:34 36240 Stadol medicatio n palpitati ons Not available Not available 09/13/2024 71204 RxNorm Prince Calderon CMA [facility] 15:38:10 Medications Name Sig Start Date Stop [...] Address Organization Details Last Updated DateTime 09/13/2024 095828.2 g 98 [degF] 45 kg/m2 162.56 cm Prince Calderon CMA [facility] 09/13/2024 15:37:32 Social History Question Answer Notes LastModified by Organizat ion Details LastModified Time Tobacco Smoking Status Never Smoker Lynnxavier Bustamanterhoda sumner [facility] 09/12/2024 12:56:45 What Is Your Level Of Alcohol Consumption? None Information not available 09/12/2024 What Is Your Level Of Caffeine Consumption? Occasional Coffee Information not available 09/13/2024 Sex: Unknown Functional Status None recorded. Mental Status None recorded. Family History Relationship Description Onset Age of this Age Resolved Age Notes LastModified by Organization Details LastModified Time Father Diabetes mellitus Not available 2023 15:43:22 Father Family history of stroke [email or web address] Not available 2023 15:43:39 Mother Heart disease [email or web address] Not available 2023 15:43:46 Medical History Condition Response MRSA N ALLERGIES/HAYFEVER N BACK INJECTIONS N LUNG DISEASE/DISORDER N ESRD N HISTORY OF DRUG ABUSE N INSOMNIA N RADIATION / CHEMOTHERAPY N COPD N HIGH CHOLESTEROL / HYPERLIPIDEMIA N HYPERTHYROIDISM Y PVD N BLOOD DISEASES N EAR OR HEARING PROBLEMS N HYPOTHYROIDISM N SHINGLES N BACK / NECK PROBLEMS N DEPRESSION (INCLUDING POST ) N HAVE YOU BEEN HOSPITALIZED OR SEEN IN [facility] ER IN THE PAST YEAR [...] SNOMED-CT Code Diagnosis ICD10 Code Diagnosis Note [id number] HUGH Arrington [facility] [address] [place] [address] 09/13/2024 15:26:45 09/13/2024 16:05:18 Benign paroxysmal positional vertigo 680436436 H81.10 Health Concerns Section Related Observation LastModified by Organization Detai ls LastModified Time None Recorded Concern Status LastModified by Organization Details LastModified Time None Recorded Advance Directives Directive None Recorded Payers Encounter Date Sequence Insurance Name Policy Number Policy Castro Covered Member ID Castro Member ID Guarantor Name 09/13/2024 1 [employer] - OPEN ACCESS Austin Dong [id number] Austin Dong Notes Date Note Type Note [...] also notes if she moves her head [id number] quickly this can also elicit symptoms. She also reports that when her spouse was watching football on the television the other day, this too was causing vertigo like symptoms. Bettie Ibarra, TRACTOR ENGINE ASSEMBLER [address] [facility], [facility] [address], [place], [address], [facility] 09/13/2024 16:04:52 OBGyn Episode No OBEpisode recorded.
--- OUTSIDE RECORDS SUMMARY | 2025-01-22 07:42 | XMS_ITS | Data Portability ---
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 Patient will come back in a year unless there are new symptoms. Suggest Calcium with Vitamin D if not eating in diet. Patient advised to get annual flu shot. Recommend yearly physicals and preform monthly breast exams. Genetic testing is available for patients with family history of cancer. Engage in safe sexual practices, use condoms. Encouraged to have daily exercise. Avoid tobacco and illicit drugs, moderation of alcohol. If BMI greater than 25 dietary consult advised. If you have any questions please call or email. scheduled for diagnostic mammogram due to mass found in right [email or web address] Not available 07/30/2021 10:56:08 02/17/2024 02/17/2024 Annual gynecological exam performed. Patient will come back in a year unless there are new symptoms. [email or web address] Not available 02/16/2024 17:01:20 Plan of Treatment Reminders Order Date Submit Date Provider Last Modified By Organization Details Last Modified Time Details Appointments None recorded. Lab None recorded. Referral None recorded. Procedures None recorded. Surgeries None recorded. Imaging MAMMO, screening, digital, bilateral 2023 024 [facility], [address], [address], [place], [address], 05:01:18 US, pelvis 2020 021 [email or web address] [place], [address], [place], [address], 07:22:39 US, transvagina l 2020 021 [email or web address] [place], [address], [place], [address], 07:22:39 US, pelvis, complete 2020 [email or web address] Not available 14:38:51 Medication Orders None recorded. Patient TargetsNo targets recorded. Patient InstructionsNo instructions recorded. Reason for Referral None Reported. Results Created Date Observation Date Name Description Value Unit Range Abnormal Flag Note LastModifiedBy Organization Detail LastModifiedTime 07/30/20 21 07/30/2021 IMAGE GUIDE D PAP AND HPV REGAR DLESS image guided Pap, HPV regardless of Pap result SEE RESULT S BELOW CASE REPOR T: Cytol ogy Gynec ologi nas Repor t Case: [id number] Autho amy caputo Provi cee: Solange Gambino NP Colle cted: 07/30 1304 Order ing Locat ion: [place] [facility] Recei manasa: 07/31 0006 First Scree n: Any Caraballo ret, CT Rescr een: Madina Joshi , CT Speci men: Scree chaparrita Pap - Image d, Cervi x STATE MENT OF ADEQU ACY: Satis facto ry for evalu ation Trans forma tion zone compo nent absen t The absen ce of an endoc ervic al compo nent was confi rmed by an addit ional scree ner. FINAL DIAGN OSIS: Negat lino for Intra epith elial Faina n or [place] (NIL) Elect ina shook juana d by Madina Joshi , CT on 021 at 6:21 PM ----- ----- ----- ----- ----- ----- ----- ----- ----- ----- ----- ----- ----- ----- ----- ----- ----- ---- HPV RESUL TS: HPV mRNA E6/E7 : No HPV mRNA Detec cristela NOTE: This high risk HPV mRNA assay detec ts fourt een high- risk HPV types (16, 18, 31, 33, 35, 39, 45, 51, 52, 56, 58, 59, 66, 68) witho ut diffe renti ation . COMME NT: Note: This speci men was revie wed by a Cytot echno logis t and/o r Patho logis t (as indic ated in this repor t) after evalu ation using the Thinp rep Imagi ng Syste m. CLINI NAS INFOR MATIO N: Menst rual Statu s: LMP (if appli cable ): 2020 Clini nas Histo ry/Pr eviou s Pap: Type of Neopl domingo (if appli cable ): Signi fican t Clini nas Findi ngs: Other Histo ry: Hormo marisol (if appli cable ): PAP EDUCA CHET L NOTE: The Pap Test is a scree chaparrita test with an inher ent false negat lino rate. Liqui d-bas e sampl ing may decre ase, but will not elimi jelly, false negat lino resul ts. A negat lino resul t does not precl ude the prese nce and/o r devel opmen t of disea se, since the prese nce of abnor mal cells in the sampl e depen ds on the locat ion of the lesio n and sampl ing techn ique. Geovani nued regul ar scree chaparrita is the best metho d of cance r preve ntion . If repor cristela cytol ogic findi ng do not corre late with physi nas and/o r histo rical findi ngs, furth er inves tigat ion is recom nam d, as clini tyrell mullins nted. Not Available [facility] (Lab) [address], [place], [address], 08/03/2021 19:24:02 02/17/20 24 02/17/2024 IMAGE GUIDE D PAP AND HPV REGAR DLESS image guided Pap, HPV regardless of Pap result SEE RESULT S BELOW CASE REPOR T: Cytol ogy Gynec ologi nas Repor t Case: [id number] Autho amy caputo Provi cee: Arely Del Castillo, CONY Gardiner cted: 02/16 1016 Order ing Locat ion: [place] [facility] [place] Recei manasa: 02/17 0315 First Scree n: Ilia pickard, Josh ed, CT Rescr een: Salvador Leary, CT Speci men: Screkim garciag Pap - Image d, Cervi x STATE MENT OF ADEQU ACY: Satis facto ry for evalu ation Trans forma tion zone compo nent prese nt FINAL DIAGN OSIS: Negat lino for Intra epith elial Lesio n or [place] (NIL) . Elect ina shook juana d by Salvador Leary, CT on 2023 at 2:52 PM ----- ----- ----- ----- ----- ----- ----- ----- ----- ----- ----- ----- ----- ----- ----- ----- ----- ---- HPV RESUL TS: HPV mRNA E6/E7 : No HPV mRNA Detec cristela NOTE: This high risk HPV mRNA assay detec ts fourt een high- risk HPV types (16, 18, 31, 33, 35, 39, 45, 51, 52, 56, 58, 59, 66, 68) witho ut diffe renti ation . COMME NT: This speci men was revie wed by a Cytot echno logis t and/o r Patho logis t (as indic ated in this repor t) after evalu ation using the Thinp rep Imagi ng Syste m. CLINI NAS INFOR MATIO N: Menst rual Statu s: LMP (if appli cable ): Clini nas Histo ry/Pr eviou s Pap: Type of Neopl domingo (if appli cable ): Signi fican t Clini nas Findi ngs: Other Histo ry: Hormo marisol (if appli cable ): PAP EDUCA CHET L NOTE: The Pap Test is a scree chaparrita test with an inher ent false negat lino rate. Liqui d-bas ed sampl ing may decre ase, but will not elimi jelly, false negat lino resul ts. A negat lino resul t does not precl ude the prese nce and/o r devel opmen t of disea se, since the prese nce of abnor mal cells in the sampl e depen ds on the locat ion of the lesio n and sampl ing techn ique. Geovani nued regul ar scree chaparrita is the best metho d of cance r preve ntion . If repor cristela cytol ogic findi ng do not corre late with physi nas and/o r histo rical findi ngs, furth er inves tigat ion is recom nam d, as clini tyrell warra nted. Not Available [facility] (Lab) [address], [place], [address], 02/22/2024 15:56:44 08/01/2008/01/2021 US, trans quan al No observ ation record ed. [facility] [address], [place], [address], 08/05/2021 17:01:44 08/01/20 21 08/01/2021 , earlene amezquita No observ ation record ed. [facility] [address], [place], [address], 08/01/2021 17:08:35 08/01/2008/01/2021 US, emanuel glass al No observ ation record ed. [facility] [address], [place], [address], 08/01/2021 17:08:44 Result Notes None recorded. Problems Name Problem SNOMED Code Status Onset Date Resolution Date Notes Provider Name and Address Organization Details Recorded Time Pregnanc y test negative 452133289 Completed 201707/29/2021 Encounte r for pregnanc y test, result negative ;Practic e ID: 0001 Kari sumner [facility] 17:16:18 Finding of menstrua l bleeding Completed 201707/29/2021 Excessiv e and frequent menstrua tion with regular cycle;Pr actice ID: 0001 Kari Najera [facility] 17:15:23 Finding of pattern of menstrua l cycle [id number] Completed 201707/29/2021 Excessiv e and frequent menstrua tion with irregula r cycle;Pr actice ID: 0001 Kari sumner [facility] 17:15:25 Finding of regulari ty of menstrua l cycle Completed 201707/29/2021 Irregula r menstrua tion, unspecif ied;Prac jluian ID: 0001 aKri Najera [facility] 17:15:27 Female genitali a finding Completed 201707/29/2021 Foreign body in vulva and vagina, sequela; Practice ID: 0001 Kari sumner [facility] 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 17:16:11 Pain in female genitali a Completed 201707/29/2021 Dysmenor xander, unspecif ied;Prac julian ID: 0001 Kari sumner [facility] 08/31/202 1 17:15:19 Steriliz ation procedur e Completed 201707/29/2021 Encounte r for steriliz ation;Pr actice ID: 0001 Kari sumner [facility] 17:16:36 Procedur e on genitour inary system Completed 201707/29/2021 Encounte r for surgical aftcr followin g surgery on the sys;Prac julian ID: 0001 Kari sumner [facility] 17:16:20 Postoper ative care Completed 201707/29/2021 Encounte r for surgical aftcr followin g surgery on the sys;Prac julian ID: 0001 Kari sumner [facility] 17:16:15 Urinary tract infectio us disease [id number] Completed 201807/29/2021 Urinary tract infectio n, site not specifie d;Practi ce ID: 0001 [facility] Concept Completed 201807/29/2021 Encntr for medical underwriter exam (general ) (routine ) w/o abn findings ;Practic e ID: 0001 Kari sumner [facility] 17:16:32 Screenin g for malignan t neoplasm of rectum Completed 201807/29/2021 Encounte r for screenin g for malignan t neoplasm of rectum;P ractice ID: 0001 Kari sumner [facility] 17:16:28 Right lower quadrant pain [id number] Completed 201607/29/2021 Right lower quadrant pain;Pra ctice ID: 0001 Kari sumner [facility] 17:16:24 Pelvic and perineal pain [id number] Completed 201607/29/2021 Pelvic and perineal pain;Pra ctice ID: 0001 Kari sumner, [facility] 17:16:12 Hypothyr oidism [id number] Completed 201607/29/2021 Hypothyr oidism, unspecif ied;Prac julian ID: 0001 Kari Najera [facility], [facility] 17:15:57 Depressi ve disorder [id number] Completed 201607/29/2021 Major depressi ve disorder , single episode, unspecif ied;Prac julian ID: 0001 Kari Najera [facility], [facility] 17:15:09 Acute vaginiti s [id number] Completed 201607/29/2021 Acute vaginiti s;Practi ce ID: 0001 Kari Najera [facility], [facility] 17:14:[address] Concept Completed 201607/29/2021 Encntr for general adult medical exam w/o abnormal findings ;Recorde d Elsewher e: No Locat ion: [facility] S ource: EHR [employer] Manager luz: N Practi ce ID: 0001 Petr lable Time: 09:30:00 AM Kari Najera [facility] 17:16:30 Clinical finding Completed 201507/29/2021 Presence of (intraut erine) contrace ptive device;R ecorded Elsewher e: No Locat ion: [facility] S ource: [employer] luz: N Practi ce ID: 0001 Petr lable Time: 12:45:00 PM Kari Najera [facility] 17:14:38 Evaluati on finding Completed 201807/29/2021 Hematuri a, unspecif ied;Toni rded Elsewher e: No Locat ion: [facility] Vicentati ce ID: 0001 Petr lable Time: 08:15:00 AM Kari sumner, [facility] 17:15:14 Insertio n of intraute rine contrace ptive device Completed 201507/29/2021 Encounte r for insertio n of intraute rine contrace ptive device;R ecorded Elsewher e: No Locat ion: [facility] Practi ce ID: 0001 Petr lable Time: 12:45:00 PM Kari sumner, [facility] 17:16:02 Increase d frequenc y of urinatio n [id number] Completed 201307/29/2021 Urinary frequenc y;Record ed Elsewher e: No Locat ion: [facility] Vicentati ce ID: 0001 Petr lable Time: 02:00:00 PM Kari sumner, [facility] 17:15:59 Lesion of ovary Completed 201607/29/2021 Other ovarian cyst, right side;Rec orded Elsewher e: No Locat ion: [facility] N Vicentati ce ID: 0001 Petr lable Time: 01:30:00 PM Kari sumner [facility] 17:14:55 Clinical finding Completed 201607/29/2021 Obesity, unspecif ied;Toni rded Elsewher e: No Locat ion: [facility] Practi ce ID: 0001 Petr lable Time: 01:45:00 PM Kari sumner [facility] 17:15:29 Speciali zed medical examinat ion Completed 201207/29/2021 Gynecolo gical Examinat ion;Toni rded Elsewher e: No Locat ion: [facility] S ource: [employer] luz: N Practi ce ID: 0001 Petr lable Time: 03:00:00 PM Kari Najera taisha, [facility] 17:16:34 Speciali zed medical examinat ion Completed 201108/15/2012 Gynecolo gical Examinat ion;Toni rded Elsewher e: No Locat ion: [facility] S ource: [employer] luz: N Practi ce ID: 0001 Petr lable Time: 11:30:00 AM Kari Najera [facility], [facility] 17:16:34 Dysfunct ional uterine bleeding Completed 201008/15/2012 Other disorder s of menstrua tion and other abnormal bleeding from female genital tract;Re corded Elsewher e: No Locat ion: [facility] Practi ce ID: 0001 Petr lable Time: 03:30:00 PM Kari Najera [facility] 17:15:12 Breast lump [id number] Completed 201307/29/2021 Breast Lump Or Mass;Rec orded Elsewher e: No Locat ion: [facility] Y Vicentati ce ID: 0001 Petr lable Time: 04:30:00 PM Kari Najera [facility], [facility] 17:14:35 Removal of intraute rine device Completed 201607/29/2021 Encounte r for removal of intraute rine contrace ptive device;R ecorded Elsewher e: No Locat ion: [facility] Practi ce ID: 0001 Petr lable Time: 08:45:00 AM Kari sumner [facility] 17:16:22 Adult health examinat ion Completed 201307/29/2021 ROUTINE MEDICAL EXAM;Rec orded Elsewher e: No Locat ion: [facility] S ource: [employer] luz: N Practi ce ID: 0001 Petr lable Time: 02:00:00 PM Kari sumner [facility] 17:14:08 Cyst of ovary Completed 201607/29/2021 Unspecif ied ovarian cyst, unspecif ied side;Rec orded Elsewher e: No Locat ion: [facility] S ource: [employer] luz: N Practi ce ID: 0001 Petr lable Time: 01:30:00 PM Kari sumner [facility] 17:14:40 Dysfunct ional uterine bleeding Completed 201007/29/2021 DUB;Prac julian ID: 0001 Kari Najera [facility], [facility] 17:15:12 Nausea [id number] Completed 201007/29/2021 Nausea alone;Pr actice ID: 0001 Kari Najera [facility] 17:16:08 Screenin g for malignan t neoplasm of cervix Completed 201107/29/2021 Pap Smear;Pr actice ID: 0001 Kari Najera [facility], [facility] 17:16:26 Malaise and fatigue [id number] Completed 201207/29/2021 Fatigue And Malaise; Practice ID: 0001 Kari Najera [facility] 17:16:04 Female genital organ symptoms [id number] Completed 201207/29/2021 Unspecif ied symptom associat ed with female genital organs;P ractice ID: 0001 Kari sumner [facility] 17:15:17 Microsco pic hematuri a [id number] Completed 201507/29/2021 Other microsco pic hematuri a;Practi ce ID: 0001 Kari Contrerastz [facility], [facility] 17:16:06 Surveill ance of contrace ption Completed 201507/29/2021 Encounte r for surveill ance of contrace ptives, unspecif ied;Prac julian ID: 0001 Kari Najera [facility] 17:16:38 Problem Notes None recorded. Procedures Surgical History Date Name Laterality Status Provider Name and Address Organization Details Recorded Time 07/30/20 21 Date of Last Pap Smear completed [facility] 07/30/2021 09:55:09 07/30/20 18 Tubal Ligation completed [facility] 07/29/2021 17:34:29 02/29/20 18 endometrial biopsy completed [facility] 07/29/2021 17:33:40 08/15/20 12 Breast Biopsy completed [facility] 07/29/2021 17:32:59 12/30/19 03 cholecystectomy completed [facility] 07/29/2021 17:34:42 11/29/19 02 Colposcopy completed [facility] 07/29/2021 17:20:03 Imaging Results Imaging Date Name Status LastModified by Organization Details LastModified Time 08/01/2021 US, transvaginal completed [address], [place], [address], 08/05/2021 17:01:44 08/01/2021 US, pelvis completed [address], [place], [address], 08/01/2021 17:08:35 08/01/2021 , transvaginal completed jozef alvarez [address], [place], [address], 08/01/2021 17:08:44 Procedure Notes None recorded. Medical Equipment None Reported. Allergies Allergen ID Allergen Name Allergen Category Reaction Reaction Severity Criticality Documentation Date Start Date Code Code System Note Provider Name and Address Organization Details Recorded Time 96339 ketorolac medicatio n Not available Not available Not available 07/30/2021 50949 RxNorm Kari Najera [facility] 09:54:01 Medications Name Sig Start Date Stop Date Status Note LastModified by Organization Details LastModified Time amoxicill in 500 mg capsule TAKE 1 CAPSULE BY MOUTH THREE TIMES DAILY UNTIL GONE 02/16 completed Not Available Not Available Not Available levothyro xine 175 mcg tablet TAKE 1 TABLET BY MOUTH ONCE DAILY active Not Available Not Available No t Available doxycycli ne hyclate 100 mg capsule TAKE 1 CAPSULE BY MOUTH TWICE DAILY active Not Available Not Available No t Available fluconazo le 150 mg tablet TAKE 1 TABLET BY MOUTH ONCE DAILY 02/16 completed Not Available Not Available Not Available ibuprofen 200 mg capsule take 1 capsule by oral route every 6 hours as needed 09/20 completed Prescrib ed Elsewher e: Yes Loca tion: [facility] odify By: efraín gee DateTime : 10/29/20 11 03:30:00 PM Not Available Not Available Not Available doxycycli ne hyclate 50 mg capsule take 1 capsule by oral route every 12 hours 02/07 completed Prescrib ed Elsewher e: Yes Loca tion: [facility] odify By: mike armendariz DateTime : 04/13/20 16 01:00:00 PM Not Available Not Available Not Available Pyridium 200 mg tablet take 1 tablet by oral route 3 times every day after meals 03/14/ 2019 09/01 /2021 completed Prescrib ed Elsewher e: No Locat ion: [facility] odify By: lbillhar tz Encou nter DateTime : 02/10/20 08:15:00 AM Not Available Not Available Not Available metronida zole 500 mg tablet TAKE 1 TABLET BY MOUTH EVERY 6 HOURS FOR 7 DAYS 07/30 completed Not Available Not Available Not Available nystatin- triamcino lone 100,000 unit/gram -0.1 % topical ointment APPLY TOPICALL Y TO UPPER THIGHS TWICE DAILY 02/16 completed Not Available Not Available Not Available terbinafi ne HCl 250 mg tablet TAKE 1 TABLET BY MOUTH ONCE DAILY active Not Available Not Available No t Available Metrogel Vaginal 0.75 % (37.5 mg/5 gram) insert 1 applicat orful by vaginal route for 5 nights at bedtime 01/04 completed Prescrib ed Elsewher e: No Locat ion: [facility] odify By: mike jianguntjessica DateTime : 12/17/19 02:43:41 PM Not Available Not Available Not Available Soma 350 mg tablet take 1 tablet by oral route 3 times every day and at bedtime 04/13 completed Prescrib ed Elsewher e: No Locat ion: [facility] odify By: daryl delgado DateTime : 12/26/19 05:30:00 PM Not Available Not Available Not Available Euthyrox 150 mcg tablet TAKE 1 TABLET BY MOUTH ONCE DAILY active Not Available Not Available No t Available cephalexi n 500 mg capsule TAKE 1 CAPSULE BY MOUTH EVERY 8 HOURS 02/16 completed Not Available Not Available Not Available Cipro 500 mg tablet take 1 tablet by oral route every 12 hours 07/30 completed Prescrib ed Elsewher e: No Locat ion: [facility] odify By: andrew Alvarez ncounter DateTime : 02/14/20 09:38:29 AM Not Available Not Available Not Available nystatin 100,000 unit/gram topical cream 02/16 completed Not Available Not Available Not Available Synthroid 88 mcg tablet take 1 tablet by oral route every day 04/13 completed Prescrib ed Elsewher e: Yes Loca tion: [facility] odify By: daryl delgado DateTime : 09/20/20 14 02:00:00 PM Not Available Not Available Not Available Synthroid 50 mcg tablet take 1 tablet by oral route every day 02/16 completed Prescrib ed Elsewher e: Yes Loca tion: [facility] odify By: mike armendariz DateTime : 04/20/20 16 03:15:00 PM Not Available Not Available Not Available Adipex-P 37.5 mg capsule take 1 capsule by oral route every day before breakfas t 09/20 completed Prescrib ed Elsewher e: Yes Loca tion: [facility] odify By: efraín gee DateTime : 03/15/20 14 04:30:00 PM Not Available Not Available Not Available Vitamin D2 1,250 mcg (50,000 unit) capsule take 1 capsule (39081PE ITS) by oral route every week 03/15 completed Prescrib ed Elsewher e: No Locat ion: [facility] odify By: isabel jianguntjessica DateTime : 08/31/20 13 09:42:50 AM Not Available Not Available Not Available amoxicill in 500 mg-potass ium clavulana te 125 mg tablet TAKE 1 TABLET BY MOUTH EVERY 12 HOURS FOR 7 DAYS 02/16 completed Not Available Not Available Not Available Bactrim DS 800 mg-160 mg tablet take 1 tablet by oral route every 12 hours 02/13 completed Prescrib ed Elsewher e: No Locat ion: [facility] odify By: andrew armendariz DateTime : 02/10/20 19 08:15:00 AM Not Available Not Available Not Available Wellbutri n XL 300 mg 24 hr tablet, extended release take 1 tablet by oral route every day 02/07 completed Prescrib ed Elsewher e: No Locat ion: [facility] odify By: mike armendariz DateTime : 12/14/19 17 09:30:00 AM Not Available Not Available Not Available nitrofura ntoin monohydra te/macroc rystals 100 mg capsule TAKE 1 CAPSULE BY MOUTH EVERY 12 HOURS FOR 7 DAYS 07/30 completed Not Available Not Available Not Available Lysteda 650 mg tablet take 2 tablet by oral route 3 times every day during menses 08/17 completed Prescrib ed Elsewher e: No Locat ion: [facility] odify By: mike Alvarez ncounter DateTime : 02/08/20 18 01:45:00 PM Not Available Not Available Not Available Lo Loestrin Fe 1 mg-10 mcg (24)/10 mcg (2) tablet take 1 tablet by oral route every day 01/04 completed Prescrib ed Elsewher e: No Locat ion: [facility] odify By: mike Alvarez ncounter DateTime : 09/07/20 16 09:42:20 AM Not Available Not Available Not Available Soolantra 1 % topical cream APPLY TO THE AFFECTED AREA(S) ONCE DAILY 02/16 completed Not Available Not Available Not Available Saxenda 3 mg/0.5 mL (18 mg/3 mL) subcutane ous pen injector INJECT 1/2 (ONE-DOC F) ML (3MG) SUBCUTAN EOUSLY ONCE DAILY 02/16 completed Not Available Not Available Not Available Finacea 15 % topical foam APPLY TOPICALL Y TWICE DAILY 02/16 completed Not Available Not Available Not Available Lomaira 8 mg tablet TAKE 1 TABLET BY MOUTH TWICE DAILY active Not Available Not Available No t Available Clenpiq 10 mg-3.5 gram-12 gram/160 mL oral solution TAKE DIRECTED 02/16 completed Not Available Not Available Not Available Mounjaro 12.5 mg/0.5 mL subcutane ous pen injector INJECT 12.5MG SUBCUTAN EOUSLY ONCE WEEKLY 02/16 completed Not Available Not Available Not Available Vitals Date Recorded Body height Body mass index (BMI) Body weight Systolic blood pressure Diastolic blood pressure Provider Name and Address Organization Details Last Updated DateTime 07/30/2021 161.93 cm 46.7 kg/m2 549936.9 4 g 127 mm[Hg] 84 mm[Hg] Kari Najera [facility] 09:53:20 Date Recorded Body height Body mass index (BMI) Body weight Systolic blood pressure Diastolic blood pressure Provider Name and Address Organization Details Last Updated DateTime 02/17/2024 160.02 cm 45.5 kg/m2 384221.2 4 g 136 mm[Hg] 91 mm[Hg] Sabi Roca [facility] 4 10:12:21 Social History Question Answer Notes LastModified by Organizat ion Details LastModified Time Tobacco Smoking Status Never Smoker Kari sumner, [facility] 07/30/2021 09:56:22 What Is Your Level Of Alcohol Consumption? Occasional [email or web address] Information not available 07/30/2021 If You Are , What Was Your Level Of Alcohol Consumption Prior To ? None Information not available 07/30/2021 Are You Blind Or Do You Have Difficulty Seeing? No [email or web address] Information n ot available 07/30/2021 What Is Your Level Of Caffeine Consumption? Occasional [email or web address] Information not available 07/30/2021 In The 14 Days Before Symptom Onset, Have You Had Close Contact With A Laboratory-confirm ed COVID-19 While That Case Was Ill? No [email or web address] Information n ot available 07/30/2021 In The 14 Days Before Symptom Onset, Have You Had Close Contact With A Person Who Is Under Investigation For COVID-19 While That Person Was Ill? No [email or web address] Information not available 07/30/2021 Have You Been To An Area Known To Be High Risk For COVID-19? No [email or web address] Information not available 07/30/2021 Are You Deaf Or Do You Have Serious Difficulty Hearing? No [email or web address] Information not available 07/30/2021 What Type Of Diet Are You Following? REGULAR [email or web address] Information n ot available 07/30/2021 Do You Use Your Seat Belt Or Car Seat Routinely? Yes Information not available 07/30/2021 Do You Have Smoke And Carbon Monoxide Detectors In Your Home? Yes [email or web address] Information not available 07/30/2021 Do You Feel Stressed (tense, Restless, Nervous, Or Anxious, Or Unable To Sleep At Night)? [id number] [email or web address] Information not available 07/30/2021 Do You Use Any Illicit Or Recreational Drugs? No [email or web address] Information not available 07/30/2021 Do You Use Sunscreen Routinely? Yes [email or web address] Information not available 07/30/2021 Has Tobacco Cessation Counseling Been Provided? No [email or web address] Information not available 07/30/2021 Do You Or Have You Ever Used Any Other Forms Of Tobacco Or Nicotine? No [email or web address] Information not available 07/30/2021 Sex: Unknown Functional Status Question Answer Note LastModified by Organizat ion Details LastModified Time Are you able to walk? YESWOREST [email or web address] Information not available 07/30/2021 What is your exercise level? Occasional [email or web address] Information not available 07/30/2021 Mental Status None recorded. Family History Relationship Description Onset Age of this Age Resolved Age Notes LastModified by Organization Details LastModified Time Maternal Aunt Malignant tumor of colon [email or web address] Not available 07/29 17:29:59 Maternal Aunt Heart disease [email or web address] Not available 07/29 17:30:47 Paternal Grandmother Malignant tumor of breast Not available 07/29 17:30:21 Maternal Grandmother Malignant tumor of breast [email or web address] Not available 07/29 17:30:21 Maternal Grandmother Malignant neoplasm of liver [email or web address] Not available 07/29 17:32:14 Mother Heart disease [email or web address] Not available 07/29 17:30:47 Mother Hypertensive disorder [email or web address] Not available 07/29 17:31:17 Maternal Uncle Heart disease Not available 07/29 17:30:47 Sister Hypertensive disorder [email or web address] Not available 07/29 17:31:17 Sister Diabetes mellitus [email or web address] Not available 07/29 17:31:31 Father Diabetes mellitus [email or web address] Not available 07/29 17:31:42 Father Hypertensive disorder [email or web address] Not available 07/29 17:32:24 Notes:Father: Diabetes melli tus, Hypertension Maternal aunt: Cancer, colon Maternal aunts x 3: heart disease Maternal grandfather: Hypertension, cancer, liver Maternal grandmother: Cancer, breast Maternal uncle: heart disease Mother: Hypertension, heart disease Paternal grandfather: Diabetes mellitus Paternal grandmother: Cancer, breast Sister: Hypertension, Diabetes mellitus Medical History Condition Response Allergies (Food, seasonal, environmental ) N Other Y Breast Cancer N Drug/Latex Allergies/Reactions Y Blood Transfusion N Dermatologic Disorders N Lung Disease N Defects or Inherited Disease N Breast Problem Y Gestational Diabetes N Hematologic disorders N Anesthesia Complications N History of STI Y Deep Vein Thrombosis N Polycystic ovary syndrome N Anxiety Disorder Y Autoimmune disease N Arthritis N Infertility N Polyps N Acid Reflux (GERD) Y History of abnormal pap Y Cancer N Stroke N Varicosities N Neurologic/Epilepsy N Endometriosis N High Cholesterol N Headaches N Fibromyalgia N Kidney Disease N Heart Problems N Kidney or Bladder Problems N Thyroid Problems Y GI Problems N Eating Disorder N Anemia N Art (IVF or FET) N Psychiatric Illness N Ovarian Cancer N Diabetes Y Pulmonary (TB, Asthma) N Hepatitis/Liver Disease N No Past Medical History N Eczema N Urinary Tract Infection N Abuse/Domestic Violence N Asthma N Trauma/Violence N Depression/ depression Y Heart Disease N Pre-Eclampsia N Hypertension N Osteoporosis N Thrombophilias N Gynecological History Statement/Question Response Abnormal Pap N Date of Last Mammogram Date of LMP 07/21/2021 STIs/STDs Y Colposcopy 11/29/2001 Date of Last Pap Smear 07/30/2021 Current Control Method Tubal Ligat ion Desired Control Method Ablation LMP Approximate 11/29/2001 Obstetrics History GPAL:G 6 P 3 0 3 3 Type Value Full Term 3 Induced 1 Spontaneous 2 Living 3 Total 6 Past Encounters Encounter ID Performer Location Encounter Start Date Encounter Closed Date Diagnosis/Indication Diagnosis SNOMED-CT Code Diagnosis ICD10 Code Diagnosis Note [id number] Solange Ye CNM [place] [address] [address] 07/30/2021 09:41:09 07/30/2021 15:54:38 Gynecologic examination 79577039 Z01.419 Dyspareunia 49589913 N94 .10 f/u [id number] [address] [address] 08/01/2021 16:05:54 08/01/2021 16:54:26 Dyspareunia 27121361 N94.10 [id number] ALCIDES Isaac [place] [address] [address] 02/17/2024 10:04:57 02/17/2024 10:41:21 Gynecologic examination 02879955 Z01.419 WWEBC - BTLpap updateddec lined STI screenmamm ogram order givencolon oscopy UTDroutine labs/PCPge netic testing discussed/ fam hx reviewedBP precaution s reviewedRT C in 1 yr or sooner if needed Suggested Calcium with Vitamin D daily. Patient advised to get an annual flu shot in the fall and she could obtain at [facility] or [facility] care clinic. Also to obtain TDap vaccinatio n if you have not had one in the last 10 years. Recommend yearly mammograms . Encouraged monthly self breast exams. Encourage safe sexual practices, to use condoms and limit partners if not already in a monogamous relationsh ip. Engage in regular exercise. Avoid tobacco and illicit drugs. This lifestyle behavior pattern will lead to less health conditions and longer life span. If BMI greater than 25 dietary consult advised. All questions have been answered. Patient appears to understand informatio n, but if you have any questions please call or respond to this email. Screening for malignant neoplasm of breast 620196668 Z12.39 Health Concerns Section Related Observation LastModified by Organization Detai ls LastModified Time None Recorded Concern Status LastModified by Organization Details LastModified Time None Recorded Advance Directives Directive None Recorded Payers Encounter Date Sequence Insurance Name Policy Number Policy Castro Covered Member ID Castro Member ID Guarantor Name 07/30/2021 1 [employer] - DOS PRIOR TO 21 - [facility] [employer] [id number] Austin Mckeon [id number] OI Austin Dong 08/01/2021 1 [employer] - DOS PRIOR TO 21 - [facility] [employer] [id number] Austin Mckeon [id number] OI Austin Dong 02/17/2024 1 [employer] - [facility] [employer] [id number] Austin Dong [id number] JC Dong Notes Date Note Type Note Provider Name and Address Organization Details Recorded Time 07/30/2021 text/html Annual GYNReport ed bypatient.Menstrual cycle:Normal menses Urinary symptoms:No hematuria; No incontinence Vulva:No genital lesion Vagina:Normal vaginal discharge Breast:No breast pain; No breast lump; No nipple discharge Sexual complaints:No sexual complaints; No pain during intercourse; Normal libido Menopausal Symptoms:No menopausal symptoms; Normal vaginal lubrication Psychological symptoms:No depression; No anxiety; No PMDD Preventive measures:Encourage self breast examination; Encourage regular exercise; Encourage no tobacco use; Encourage regular mammograms starting age 40Notes:stopped wearing tampons due to discomfort having some pain with intercourse since november, feels different inside and also cant wear cups again Solange Ye CNM [address], [place], [address], [facility] 07/30/2021 10:58:55 02/17/2024 text/html Annual GYNReport ed bypatient.Menstrual cycle:Normal menses Urinary symptoms:No hematuria; No incontinence Vulva:No genital lesion Vagina:Normal vaginal discharge Breast:No breast pain; No breast lump; No nipple discharge Current Contraception:Satisf ied with current contraception; Tubal ligation Sexual complaints:No sexual complaints; No pain during intercourse; Normal libido Menopausal Symptoms:No menopausal symptoms; Normal vaginal lubrication Psychological symptoms:No depression; No anxiety; No PMDD Preventive measures:Encourage self breast examination; Encourage regular exercise; Encourage no tobacco use; Encourage regular mammograms starting age 40Notes:WWEh/o BTL/ablationlight periods since ablationh/o abnormal pap in 2021 - no procedures requiredlast pap 07/2021 - normalmammogram last olonoscopy done 2021, unsure when advised to repeat ALCIDES Isaac [address], [place], [address], [facility] 02/17/2024 10:36:51 OBGyn Episode Ob Episode Information Episode Created Date Number of Fetuses Patient Bloodtype Patient rh Status Prepregnancy Weight lbs Domestic Partner Domestic Partner Phone Father Name Green Pipefitter Status 07/29/20 21 1 CLOSED Fetus Data First Name Last Name Admitted to NICU Weight (g) Sex Living Outcome Pediatric Complications Fetus ID Race Codes Race Delivery Type , Induced [id number] Solomon Calculation Initial Solomon Date Initial Exam Date Initial Exam Provider Initial Ultrasound Date Last Menstrual Period Date Ultra Sound Weeks Gestation 0 Eighteen To Twenty Week Solomon Update Ultra Sound Date Fundal Height At Umbil Quickening Date Ultra Sound Latest Weeks Gestation Final Solomon Confirmed By Final Solomon Confirmed Date Final Solomon Date Ultra Sound Latest Days Gestation 0 0 Menstrual History Last Menstrual Date Menses Monthly On Bcp Conception Prior Menses Frequency Hcg Plus Date Menarche Onset Age Delivery Information Delivery Date Delivery Type Labor Anesthesia Weeks Gestation Incision Type Labor Labor Length Hrs Delivered By Post Complications Tubal Sterilization Discharge Date Comments 7 Discharge Information Feeding Method Contraceptive Method Maternal HG B and HCT Levels Ob Episode Information Episode Created Date Number of Fetuses Patient Bloodtype Patient rh Status Prepregnancy Weight lbs Domestic Partner Domestic Partner Phone Father Name Green Pipefitter Status 07/29/20 21 1 CLOSED Fetus Data First Name Last Name Admitted to NICU Weight (g) Sex Living Outcome Pediatric Complications Fetus ID Race Codes Race Delivery Type 3373.36 3704 F Full Term [id number] Vaginal Delivery Solomon Calculation Initial Solomon Date Initial Exam Date Initial Exam Provider Initial Ultrasound Date Last Menstrual Period Date Ultra Sound Weeks Gestation 0 Eighteen To Twenty Week Solomon Update Ultra Sound Date Fundal Height At Umbil Quickening Date Ultra Sound Latest Weeks Gestation Final Solomon Confirmed By Final Solomon Confirmed Date Final Solomon Date Ultra Sound Latest Days Gestation 0 0 Menstrual History Last Menstrual Date Menses Monthly On Bcp Conception Prior Menses Frequency Hcg Plus Date Menarche Onset Age Delivery Information Delivery Date Delivery Type Labor Anesthesia Weeks Gestation Incision Type Labor Labor Length Hrs Delivered By Post Complications Tubal Sterilization Discharge Date Comments 6 37 +GBS Discharge Information Feeding Method Contraceptive Method Maternal HG B and HCT Levels Ob Episode Information Episode Created Date Number of Fetuses Patient Bloodtype Patient rh Status Prepregnancy Weight lbs Domestic Partner Domestic Partner Phone Father Name Green Pipefitter Status 07/29/20 21 1 CLOSED Fetus Data First Name Last Name Admitted to NICU Weight (g) Sex Living Outcome Pediatric Complications Fetus ID Race Codes Race Delivery Type 3770.25 6704 M Full Term 45006 Vaginal Delivery Solomon Calculation Initial Solomon Date Initial Exam Date Initial Exam Provider Initial Ultrasound Date Last Menstrual Period Date Ultra Sound Weeks Gestation 0 Eighteen To Twenty Week Solomon Update Ultra Sound Date Fundal Height At Umbil Quickening Date Ultra Sound Latest Weeks Gestation Final Solomon Confirmed By Final Solomon Confirmed Date Final Solomon Date Ultra Sound Latest Days Gestation 0 0 Menstrual History Last Menstrual Date Menses Monthly On Bcp Conception Prior Menses Frequency Hcg Plus Date Menarche Onset Age Delivery Information Delivery Date Delivery Type Labor Anesthesia Weeks Gestation Incision Type Labor Labor Length Hrs Delivered By Post Complications Tubal Sterilization Discharge Date Comments 9 38 hypoglyc e akash Discharge Information Feeding Method Contraceptive Method Maternal HG B and HCT Levels Ob Episode Information Episode Created Date Number of Fetuses Patient Bloodtype Patient rh Status Prepregnancy Weight lbs Domestic Partner Domestic Partner Phone Father Name Green Pipefitter Status 07/29/20 21 1 CLOSED Fetus Data First Name Last Name Admitted to NICU Weight (g) Sex Living Outcome Pediatric Complications Fetus ID Race Codes Race Delivery Type , Spontane ous [id number] Solomon Calculation Initial Solomon Date Initial Exam Date Initial Exam Provider Initial Ultrasound Date Last Menstrual Period Date Ultra Sound Weeks Gestation 0 Eighteen To Twenty Week Solomon Update Ultra Sound Date Fundal Height At Umbil Quickening Date Ultra Sound Latest Weeks Gestation Final Solomon Confirmed By Final Solomon Confirmed Date Final Solomon Date Ultra Sound Latest Days Gestation 0 0 Menstrual History Last Menstrual Date Menses Monthly On Bcp Conception Prior Menses Frequency Hcg Plus Date Menarche Onset Age Delivery Information Delivery Date Delivery Type Labor Anesthesia Weeks Gestation Incision Type Labor Labor Length Hrs Delivered By Post Complications Tubal Sterilization Discharge Date Comments 6 Discharge Information Feeding Method Contraceptive Method Maternal HG B and HCT Levels Ob Episode Information Episode Created Date Number of Fetuses Patient Bloodtype Patient rh Status Prepregnancy Weight lbs Domestic Partner Domestic Partner Phone Father Name Green Pipefitter Status 07/29/20 21 1 CLOSED Fetus Data First Name Last Name Admitted to NICU Weight (g) Sex Living Outcome Pediatric Complications Fetus ID Race Codes Race Delivery Type 4110.45 0704 M Full Term [id number] Vaginal Delivery Solomon Calculation Initial Solomon Date Initial Exam Date Initial Exam Provider Initial Ultrasound Date Last Menstrual Period Date Ultra Sound Weeks Gestation 0 Eighteen To Twenty Week Solomon Update Ultra Sound Date Fundal Height At Umbil Quickening Date Ultra Sound Latest Weeks Gestation Final Solomon Confirmed By Final Solomon Confirmed Date Final Solomon Date Ultra Sound Latest Days Gestation 0 0 Menstrual History Last Menstrual Date Menses Monthly On Bcp Conception Prior Menses Frequency Hcg Plus Date Menarche Onset Age Delivery Information Delivery Date Delivery Type Labor Anesthesia Weeks Gestation Incision Type Labor Labor Length Hrs Delivered By Post Complications Tubal Sterilization Discharge Date Comments 5 39 Discharge Information Feeding Method Contraceptive Method Maternal HG B and HCT Levels Ob Episode Information Episode Created Date Number of Fetuses Patient Bloodtype Patient rh Status Prepregnancy Weight lbs Domestic Partner Domestic Partner Phone Father Name Green Pipefitter Status 07/29/20 21 1 CLOSED Fetus Data First Name Last Name Admitted to NICU Weight (g) Sex Living Outcome Pediatric Complications Fetus ID Race Codes Race Delivery Type , Spontane ous [id number] Solomon Calculation Initial Solomon Date Initial Exam Date Initial Exam Provider Initial Ultrasound Date Last Menstrual Period Date Ultra Sound Weeks Gestation 0 Eighteen To Twenty Week Solomon Update Ultra Sound Date Fundal Height At Umbil Quickening Date Ultra Sound Latest Weeks Gestation Final Solomon Confirmed By Final Solomon Confirmed Date Final Solomon Date Ultra Sound Latest Days Gestation 0 0 Menstrual History Last Menstrual Date Menses Monthly On Bcp Conception Prior Menses Frequency Hcg Plus Date Menarche Onset Age Delivery Information Delivery Date Delivery Type Labor Anesthesia Weeks Gestation Incision Type Labor Labor Length Hrs Delivered By Post Complications Tubal Sterilization Discharge Date Comments 4 Discharge Information Feeding Method Contraceptive Method Maternal HG B and HCT Levels
== END 2025-01-22 07:38 | disposition home or self-care (01) ==
PROVIDERS: PCP Family Medicine; Visit Provider Surgery
DX: N63.22 Unspecified lump in the left breast, upper inner quadrant (principal); R92.8 Other abnormal and inconclusive findings on diagnostic imaging of breast; R59.0 Localized enlarged lymph nodes
CPT/HCPCS: 19083; 19084; 20999; 76942; 77065; 88184; 88305; 88342; 88360; A4648

== ENCOUNTER 2025-01-24 15:40 | Outpatient (CLI) | payer OTHER, SELFPAY ==
--- OUTSIDE RECORDS SUMMARY | 2025-01-24 18:04 | XMS_ITS | Referral Summary ---
Author Organization [facility] [address] [place] [id number] Care Team Providers Care Manager [place] Name Role Phone Trey Shen MD Primary Care Provider Encounters Date Type Department Care Team Description 12/05/2024 4:00 PM [facility] OFF[facility]IAL Telemedicine [facility] [address] [place] [address] [address] [place] [address] Carmela Siddiqui PA Encounter for weight loss counseling (Primary Dx); Metabolic syndrome; Obesity, Class III, BMI 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) (HCC); Acquired hypothyroidism; Vitamin D deficiency; Encounter for exercise counseling; Body mass index 45.0-49.9, adult (HCC) 11/15/[address] [facility] [address], [address] [place] [address] Carmela Siddiqui PA Med Refill [...] 12/05/2024 Assessment & Plan (12/05/2024 3:05 PM [facility] OFFICIAL): I counseled the patient on exercise: Recommend [...] 12/05/2024 Assessment & Plan (12/05/2024 3:57 PM [facility] OFFICIAL): Patient's highest BMI was 48.6 ; initial BMI was 46.8; this has improved to 41.07 through medical management Vitamin D deficiency 09/12/2024 Assessment & Plan (12/05/2024 3:06 PM [facility] OFFICIAL): Continue vitamin-D supplementation Assessment & Plan (09/12/2024 4:10 PM CDT): start vitamin-D replacement 5,000IU daily Encounter for weight loss counseling 07/11/2024 Assessment & Plan (12/05/2024 3:05 PM [facility] OFFICIAL): Reviewed importance of adequate protein intake. Reviewed [...] 07/11/2024 Assessment & Plan (12/05/2024 3:05 PM [facility] OFFICIAL): Obesity is one of the leading risk [...] 03/21/2018 Assessment & Plan (12/05/2024 4:18 PM [facility] OFFICIAL): Reviewed most recent labs. Continue low carb, [...] 03/21/2018 Assessment & Plan (12/05/2024 3:05 PM [facility] OFFICIAL): Continue current dose of levothyroxine. Assessment & [...] on file Legal Sex Female 7:08 PM [facility] OFFICIAL Gender Identity Not on file Sexual Orientation [...] (239 lb 6.4 oz) 12/05/2024 3:55 PM [facility] OFFICIAL Height 162.6 cm (5' 4.02 ) 12/05/2024 3:55 PM CS T Body Mass Index 41.07 12/05/2024 3:55 PM [facility] OFFICIAL Plan of Treatment Not on file Insurance [employer] [facility] [id number] Care Teams Manager [place] Relationship Specialty Start Date End Date Trey Shen MD [address] [facility] [address] [place] [address] PCP - General Family Medicine 03/10/18
--- OUTSIDE RECORDS SUMMARY | 2025-01-24 18:04 | XMS_ITS | Clinical Summary ---
Author Organization [facility] Physician Office Building [address] [place] [id number] Care Team Providers Care Gas Tester Name Role Phone Trey Shen MD Primary [...] 12/05/2024 Assessment & Plan (12/05/2024 3:05 PM [employer]PLICATING [employer] SUPERVISOR): I counseled the patient on exercise: Recommend [...] 12/05/2024 Assessment & Plan (12/05/2024 3:57 PM [employer]IL[employer]PLICATING [employer]IT SUPERVISOR): Patient's highest BMI was 48.6 ; initial BMI was 46.8; this has improved to 41.07 through medical management Vitamin D deficiency 09/12/2024 Assessment & Plan (12/05/2024 3:06 PM [employer]IL[employer]PLICATING UNIT SUPERVISOR): Continue vitamin-D supplementation Assessment & Plan (09/12/2024 4:10 PM CDT): start vitamin-D replacement 5,000IU daily Encounter for weight loss counseling 07/11/2024 Assessment & Plan (12/05/2024 3:05 PM [employer]OFIL[employer] DUPLICATING UNIT SUPERVISOR): Reviewed importance of adequate protein intake. Reviewed [...] 07/11/2024 Assessment & Plan (12/05/2024 3:05 PM [employer]PLICATING UNIT SUPERVISOR): Obesity is one of the leading risk [...] 03/21/2018 Assessment & Plan (12/05/2024 4:18 PM [employer]OFIL[employer] DUPLICATING UNIT SUPERVISOR): Reviewed most recent labs. Continue low carb, [...] 03/21/2018 Assessment & Plan (12/05/2024 3:05 PM MICROFIL[employer] DUPLICATING UNIT SUPERVISOR): Continue current dose of levothyroxine. Assessment & [...] Department Care Team Description 12/05/2024 4:00 PM [employer]PLICATING [employer]IT SUPERVISOR Telemedicine [facility] [address] [place] [address] [address] [place] [address] Carmela Siddiqui PA Encounter for weight loss counseling (Primary Dx); Metabolic syndrome; Obesity, Class III, BMI 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) (HCC); Acquired hypothyroidism; Vitamin D deficiency; Encounter for exercise counseling; Body mass index 45.0-49.9, adult (HCC) 11/15/[address] [facility] [address] Medical Office Building [address], [address] [place] [address] Carmela Siddiqui PA Med Refill [...] on file Legal Sex Female 7:08 PM [employer]ATING [employer]IT SUPERVISOR Gender Identity Not on file Sexual Orientation [...] (239 lb 6.4 oz) 025 3:55 PM [employer]OFIL[employer] DUPLICATING UNIT SUPERVISOR Height 162.6 cm (5' 4.02 ) 12/05/2024 3:55 PM CS T Body Mass Index 41.07 12/05/2024 3:55 PM [employer]PLICATING [employer]IT SUPERVISOR Plan of Treatment Health Maintenance Due Date [...] patient's age to complete this topic Insurance [employer] [facility] [id number] Care Teams Gas Tester Relationship Specialty Start Date End Date Trey Shen MD [address] [address] PCP - General Family Medicine 03/10/18
== END 2025-01-24 15:41 | disposition home or self-care (01) ==
LOC: ANHIMG 15:42
PROVIDERS: PCP Family Medicine; Visit Provider Surgery
DX: R59.1 Generalized enlarged lymph nodes (principal)
CPT/HCPCS: 76942; 77065

== ENCOUNTER 2025-01-29 15:28 | Outpatient (CLI) | payer OTHER, SELFPAY ==
[2025-01-29 16:14] LABS: Basophils Absolute Auto 0.1 K/mm3 (0.0-0.1); Basophils Percent Auto 0.6 % (0.2-1.2); Eosinophils Absolute Auto 0.2 K/mm3 (0-0.3); Eosinophils Percent Auto 2.3 % (0-4.4); Hematocrit 38.4 % (37.0-47.0); Hemoglobin 12.9 g/dL (12.0-15.0); Immature Granulocyte Absolute 0.05 K/mm3 (0.00-0.031); Immature Granulocyte Percent A 0.6 % (0-0.5); Lymphocytes Absolute Auto 3.17 K/mm3 (0.9-3.2); Mean Corpuscular HGB Conc 33.6 g/dl (32-36); Mean Corpuscular Hemoglobin 30.9 pg (26-34); Mean Corpuscular Volume 91.9 fl (80-100); Mean Platelet Volume 10.4 fl (7.4-10.4); Monocytes Absolute Auto 0.7 K/mm3 (0.1-0.6); Monocytes Percent Auto 8.1 % (2.6-8.5); Neutrophils Absolute Auto 4.8 K/mm3 (1.3-6.7); Neutrophils Percent Auto 53.4 % (45.5-73.1); Platelet Count Result 305 k/mm3 (150-375); Red Blood Count 4.18 M/mm3 (4.2-5.4); Red Cell Distribution Width 12.4 % (11.5-14.5); White Blood Count 9.1 K/mm3 (4.5-10.0)
[2025-01-29 16:31] LABS: Partial Thromboplastin Time 28.1 Seconds (22.3-36.8); Prothrombin Time 13.6 Seconds (11.1-14.7)
== END 2025-01-29 15:29 | disposition home or self-care (01) ==
LOC: ANHSURGERY 15:32
PROVIDERS: PCP Family Medicine; Visit Provider Surgery
DX: Z01.818 Encounter for other preprocedural examination (principal); C50.912 Malignant neoplasm of unspecified site of left female breast
CPT/HCPCS: 36415; 85025; 85610; 85730

== ENCOUNTER 2025-01-31 01:25 | Day surgery (SDC) | payer OTHER, SELFPAY ==
[2025-01-25 12:24] VITALS: BMI 41.2
--- NOTE | 2025-01-25 12:26 | PC.NURSE ---
Addendum entered by Chuy Webb RN 01/25/25 14:59: Patient told not to take Zepbound this Wednesday and hold till after surgery. Original Note: Report to the Outpatient Waiting Room, entrance under the green pavilion located off [facility], at time _1200_ on date _[id number]_. Planned Procedure Time: _2pm_.? Time changes happen often and if your time is changed the preop area will call you the afternoon before. - You and your visitor will be asked to self-screen and do not enter if you have any COVID symptoms. Please call surgeon if you need to reschedule. - A mask is optional within the hospital at this time. Patients may have clear liquids (water, carbonated beverages, clear teas, apple juice) until 3 hours prior to surgery with a maximum of 20 ounces. - No food from midnight until time of surgery and no smoking, or chewing tobacco (or any form of nicotine). No chewing gum, candy or mints. Take only the following medications with a SIP of water on the morning of surgery: __Levothyroxine and Sertraline____ DO NOT STOP ANY OF YOUR OTHER PRESCRIPTION MEDICATIONS PRIOR TO SURGERY EXCEPT THE FOLLOWING Hold all vitamins and supplements for 3 days per anesthesiologist. Medications to discontinue per physician Date to take last bzxx___[id number]____ Please no make-up, nail danish, hairspray, perfume, deodorant, or body powder the day of surgery.? No jewelry (including any body piercings) or valuables the day of surgery, leave them at home.? Please take a shower or bath the night before, or the morning of, surgery with an antibacterial soap.? Wear comfortable, loose fitting clothing.? - Jewelry must be removed prior to entering the operating room.? Rings and piercings that are not removed may be cut off. - The hospital will not accept responsibility for valuables.? - Please leave all valuables, including medications, at home the day of surgery. If you are going home after surgery, a licensed electric train driver must drive you home.? - NO public transportation without another adult if you receive anesthesia. - We recommend that an adult stay with you for 24 hours following discharge. - We also recommend that you do not drive, make important decision, drink alcoholic beverages, or take any drugs that were not prescribed by your health care provider for at least 24 hours after your discharge time. Follow any additional instructions given to you from your surgeon. Telephone instructions given to __[place]__and asked if any additional questions and then verbalized understanding. Patient advised to call surgeon office or pre surgery nurse liaison [phone] if any additional questions.
--- NOTE | ~2025-01-31 | XR_ITS ---
EXAMINATION: XR fl guide central line place DATE: 01/31/2025 08:34 INDICATION: Port placement. TECHNIQUE: 4 intraoperative fluoroscopic views of the chest were obtained. I was not present. Fluoros copy exposure time was 19 seconds. COMPARISON: None. FINDINGS: There is a right internal jugular port with tip in superior vena cava. IMPRESSION: 1. Port tip in superior vena cava. Reviewed, dictated and finalized at location [] NSIVE CARE ANAESTHETIST
--- NOTE | ~2025-01-31 | XR_ITS ---
EXAMINATION: XR chest port-a-cath/central DATE: 01/31/2025 08:56 INDICATION: Port placement. TECHNIQUE: A single frontal view of the chest was obtained on 2 radiographs. COMPARISON: None. FINDINGS: There is no pneumonia, pleural effusion, or pneumothorax. The heart size is normal. There i s a right internal jugular port with tip in the superior vena cava. IMPRESSION: 1. Port tip in the superior vena cava. Reviewed, dictated and finalized at location [] ENER AND BLENDER
--- OUTSIDE RECORDS SUMMARY | 2025-01-31 01:28 | XMS_ITS | Data Portability ---
Author Organization [facility], [place] Address [address] [place] [address] Care Team Providers Care Negative Notcher Name Role Phone STEFAN MCLAUGHLIN Primary Care Provider Assessment Encounter Date Assessment Date Assessment LastModified [...] mammogram due to mass found in right [email or web address] Not available 07/30/2021 10:56:08 02/17/2024 02/17/2024 Annual [...] Imaging MAMMO, screening, digital, bilateral 2023 024 [facility], [address], [address], [place], [address], 05:01:18 US, pelvis 2020 021 [email or web address] [place], [address], [place], [address], 07:22:39 US, transvagina l 2020 021 [email or web address] [place], [address], [place], [address], 07:22:39 US, pelvis, complete 2020 [email or web address] Not [...] as clini tyrell mullins nted. Not Available [facility] ([facility]) [address], [place], [address], 08/03/2021 19:24:02 02/17/20 24 02/17/2024 IMAGE GUIDE [...] as clini tyrell warra nted. Not Available [facility] ([facility]) [address], [place], [address], 02/22/2024 15:56:44 08/01/2008/01/2021 US, trans quan al No observ ation record ed. [facility] [address], [place], [address], 08/05/2021 17:01:44 08/01/20 21 08/01/2021 , earlene amezquita No observ ation record ed. [facility] [address], [place], [address], 08/01/2021 17:08:35 08/01/2008/01/2021 US, emanuel glass al No observ ation record ed. [facility] [address], [place], [address], 08/01/2021 17:08:44 Result Notes None recorded. Problems Name Problem SNOMED Code Status Onset Date Resolution Date Notes Provider Name and Address Organization Details Recorded Time Pregnanc y test negative 107612771 Completed 201707/29/2021 Encounte r for pregnanc y test, result negative ;Practic e ID: 0001 Kari sumner [facility] 17:16:18 Finding of menstrua l bleeding Completed 201707/29/2021 Excessiv e and frequent menstrua tion with regular cycle;Pr actice ID: 0001 Kari Najera [facility] 17:15:23 Finding of pattern of menstrua l cycle 746298679 Completed 201707/29/2021 Excessiv e and frequent menstrua tion with irregula r cycle;Pr actice ID: 0001 Kari sumner [facility] 17:15:25 Finding of regulari ty of menstrua l cycle Completed 201707/29/2021 Irregula r menstrua tion, unspecif ied;Prac julian ID: 0001 Kari Najera [facility] 17:15:27 Female genitali a finding Completed 201707/29/2021 Foreign body in vulva and vagina, sequela; Practice ID: 0001 Kari sumner [facility] 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 17:16:11 Pain in female genitali a Completed 201707/29/2021 Dysmenor xander, unspecif ied;Prac julian ID: 0001 Kari sumner [facility] 08/31/202 1 17:15:19 Steriliz ation procedur e Completed 201707/29/2021 Encounte r for steriliz ation;Pr actice ID: 0001 Kari sumner [facility] 17:16:36 Procedur e on genitour inary system Completed 201707/29/2021 Encounte r for surgical aftcr followin g surgery on the sys;Prac julian ID: 0001 Kari sumner [facility] 17:16:20 Postoper ative care Completed 201707/29/2021 Encounte r for surgical aftcr followin g surgery on the sys;Prac julian ID: 0001 Kari sumner [facility] 17:16:15 Urinary tract infectio us disease 62998083 Completed 201807/29/2021 Urinary tract infectio n, site not specifie d;Practi ce ID: 0001 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 17:16:32 Screenin g for malignan t neoplasm of rectum Completed 201807/29/2021 Encounte r for screenin g for malignan t neoplasm of rectum;P ractice ID: 0001 Kari sumner [facility] 17:16:28 Right lower quadrant pain [id number] Completed 201607/29/2021 Right lower quadrant pain;Pra ctice ID: 0001 Kari sumner [facility] 17:16:24 Pelvic and perineal pain 383869782 Completed 201607/29/2021 Pelvic and perineal pain;Pra ctice ID: 0001 Kari sumner, [facility] 17:16:12 Hypothyr oidism 12695176 Completed 201607/29/2021 Hypothyr oidism, unspecif ied;Prac julian ID: 0001 Kari Najera [facility], [facility] 17:15:57 Depressi ve disorder 84071618 Completed 201607/29/2021 Major depressi ve disorder , single episode, unspecif ied;Prac julian ID: 0001 Kari Najera [facility], [facility] 17:15:09 Acute vaginiti s 01632274 Completed 201607/29/2021 Acute vaginiti s;Practi ce ID: 0001 Kari Najera [facility], [facility] 17:14:[address] Concept Completed 201607/29/2021 Encntr for general adult medical exam w/o abnormal findings ;Recorde d Elsewher e: No Locat ion: [facility] S ource: EHR Rolfer luz: N Practi ce ID: 0001 Petr lable Time: 09:30:00 AM Kari Najera [facility] 17:16:30 Clinical finding Completed 201507/29/2021 Presence of (intraut erine) contrace ptive device;R ecorded Elsewher e: No Locat ion: [facility] S ource: EHR Rolfer luz: N Practi ce ID: 0001 Petr lable Time: 12:45:00 PM Kari Najera [facility] 17:14:38 Evaluati on finding Completed 201807/29/2021 Hematuri a, unspecif ied;Toni rded Elsewher e: No [facility]at ion[facility] Vicentati ce ID: 0001 Petr lable Time: 08:15:00 AM Kari sumner, [facility] 17:15:14 Insertio n of intraute rine contrace ptive device Completed 201507/29/2021 Encounte r for insertio n of intraute rine contrace ptive device;R ecorded Elsewher e: No Locat ion: [facility] Practi ce ID: 0001 Petr lable Time: 12:45:00 PM Kari sumner, [facility] 17:16:02 Increase d frequenc y of urinatio n [id number] Completed 201307/29/2021 Urinary frequenc y;Record ed Elsewher e: No Locat ion: [facility] Vicentati ce ID: 0001 Petr lable Time: 02:00:00 PM Kari sumner, [facility] 17:15:59 Lesion of ovary Completed 201607/29/2021 Other ovarian cyst, right side;Rec orded Elsewher e: No Locat ion: [facility] Vicentati ce ID: 0001 Petr lable Time: 01:30:00 PM Kari sumner [facility] 17:14:55 Clinical finding Completed 201607/29/2021 Obesity, unspecif ied;Toni rded Elsewher e: No Locat ion: [facility] Practi ce ID: 0001 Petr lable Time: 01:45:00 PM Kari sumner [facility] 17:15:29 Speciali zed medical examinat ion Completed 201207/29/2021 Gynecolo gical Examinat ion;Toni rded Elsewher e: No Locat ion: [facility] S ource: EHR Rolfer luz: N Practi ce ID: 0001 Petr lable Time: 03:00:00 PM Kari Najera taisha, [facility] 17:16:34 Speciali zed medical examinat ion Completed 201108/15/2012 Gynecolo gical Examinat ion;Toni rded Elsewher e: No Locat ion: [facility] S ource: EHR Rolfer luz: N Practi ce ID: 0001 Petr lable Time: 11:30:00 AM Kari Najera [facility], [facility] 17:16:34 Dysfunct ional uterine bleeding Completed 201008/15/2012 Other disorder s of menstrua tion and other abnormal bleeding from female genital tract;Re corded Elsewher e: No Locat ion: [facility] Practi ce ID: 0001 Petr lable Time: 03:30:00 PM Kari Najera [facility] 17:15:12 Breast lump [id number] Completed 201307/29/2021 Breast Lump Or Mass;Rec orded Elsewher e: No Locat ion: [facility] Y Vicentati ce ID: 0001 Petr lable Time: 04:30:00 PM Kari Najera [facility], [facility] 17:14:35 Removal of intraute rine device Completed 201607/29/2021 Encounte r for removal of intraute rine contrace ptive device;R ecorded Elsewher e: No Locat ion: [facility] Practi ce ID: 0001 Petr lable Time: 08:45:00 AM Kari sumner [facility] 17:16:22 Adult health examinat ion Completed 201307/29/2021 ROUTINE MEDICAL EXAM;Rec orded Elsewher e: No Locat ion: [facility] S ource: EHR Rolfer luz: N Practi ce ID: 0001 Petr lable Time: 02:00:00 PM Kari sumner [facility] 17:14:08 Cyst of ovary Completed 201607/29/2021 Unspecif ied ovarian cyst, unspecif ied side;Rec orded Elsewher e: No Locat ion: [facility] S ource: EHR Rolfer luz: N Practi ce ID: 0001 Petr lable Time: 01:30:00 PM Kari sumner [facility] 17:14:40 Dysfunct ional uterine bleeding Completed 201007/29/2021 DUB;Prac julian ID: 0001 Kari Najera [facility], [facility] 17:15:12 Nausea 262432162 Completed 201007/29/2021 Nausea alone;Pr actice ID: 0001 Kari Najera [facility] 17:16:08 Screenin g for malignan t neoplasm of cervix Completed 201107/29/2021 Pap Smear;Pr actice ID: 0001 Kari Najera [facility], [facility] 17:16:26 Malaise and fatigue 521312740 Completed 201207/29/2021 Fatigue And Malaise; Practice ID: 0001 Kari Najera [facility] 17:16:04 Female genital organ symptoms 155175704 Completed 201207/29/2021 Unspecif ied symptom associat ed with female genital organs;P ractice ID: 0001 Kari sumner [facility] 17:15:17 Microsco pic hematuri a [id number] Completed 201507/29/2021 Other microsco pic hematuri a;Practi ce ID: 0001 Kari Contrerastz [facility], [facility] 17:16:06 Surveill ance of contrace ption Completed 201507/29/2021 Encounte r for surveill ance of contrace ptives, unspecif ied;Prac julian ID: 0001 Kari Najera [facility] 17:16:38 Problem Notes None recorded. Procedures Surgical History Date Name Laterality Status Provider Name and Address Organization Details Recorded Time 07/30/20 21 Date of Last Pap Smear completed [facility] 07/30/2021 09:55:09 07/30/20 18 Tubal Ligation completed [facility] 07/29/2021 17:34:29 02/29/20 18 endometrial biopsy completed [facility] 07/29/2021 17:33:40 08/15/20 12 Breast Biopsy completed [facility] 07/29/2021 17:32:59 12/30/19 03 cholecystectomy completed [facility] 07/29/2021 17:34:42 11/29/19 02 Colposcopy completed [facility] 07/29/2021 17:20:03 Imaging Results Imaging Date Name Status LastModified by Organization Details LastModified Time 08/01/2021 US, transvaginal completed [address], [place], [address], 08/05/2021 17:01:44 08/01/2021 US, pelvis completed [address], [place], [address], 08/01/2021 17:08:35 08/01/2021 , transvaginal completed jozef [address], [place], [address], 08/01/2021 17:08:44 Procedure Notes None recorded. Medical Equipment None Reported. Allergies Allergen ID Allergen Name Allergen Category Reaction Reaction Severity Criticality Documentation Date Start Date Code Code System Note Provider Name and Address Organization Details Recorded Time 21592 ketorolac medicatio n Not available Not available Not available 07/30/2021 04287 RxNorm Kari Najera [facility] 09:54:01 Medications Name Sig Start Date [...] Prescrib ed Elsewher e: Yes Loca tion: [facility] odify By: efraín gee DateTime : 10/29/20 11 03:30:00 PM Not Available Not Available Not Available doxycycli ne hyclate 50 mg capsule take 1 capsule by oral route every 12 hours 02/07 completed Prescrib ed Elsewher e: Yes Loca tion: [facility] odify By: mike armendariz DateTime : 04/13/20 16 01:00:00 PM Not Available Not Available Not Available Pyridium 200 mg tablet take 1 tablet by oral route 3 times every day after meals 03/14/ 2019 09/01 /2021 completed Prescrib ed Elsewher e: No Locat ion: [facility] odify By: lbillhar tz Encou nter [...] Prescrib ed Elsewher e: No Locat ion: [facility] odify By: mike jianguntjessica DateTime : 12/17/19 02:43:41 PM Not Available Not Available Not Available Soma 350 mg tablet take 1 tablet by oral route 3 times every day and at bedtime 04/13 completed Prescrib ed Elsewher e: No Locat ion: [facility] odify By: daryl delgado DateTime : 12/26/19 [...] Prescrib ed Elsewher e: No Locat ion: [facility] odify By: andrew [address] ncounter DateTime : 02/14/20 09:38:29 AM Not Available Not Available Not Available nystatin 100,000 unit/gram topical cream 02/16 completed Not Available Not Available Not Available Synthroid 88 mcg tablet take 1 tablet by oral route every day 04/13 completed Prescrib ed Elsewher e: Yes Loca tion: [facility] odify By: daryl delgado DateTime : 09/20/20 14 02:00:00 PM Not Available Not Available Not Available Synthroid 50 mcg tablet take 1 tablet by oral route every day 02/16 completed Prescrib ed Elsewher e: Yes Loca tion: [facility] odify By: mike armendariz DateTime : 04/20/20 16 03:15:00 PM Not Available Not Available Not Available Adipex-P 37.5 mg capsule take 1 capsule by oral route every day before breakfas t 09/20 completed Prescrib ed Elsewher e: Yes Loca tion: [facility] odify By: efraín gee DateTime : 03/15/20 14 04:30:00 PM Not Available Not Available Not Available Vitamin D2 1,250 mcg (50,000 unit) capsule take 1 capsule (98702GO ITS) by oral route every week 03/15 completed Prescrib ed Elsewher e: No Locat ion: [facility] odify By: isabel jianguntjessica DateTime : [...] ed Elsewher e: No Locat ion: [facility] odify By: andrew armendariz DateTime : 02/10/20 19 08:15:00 AM Not Available Not Available Not Available Wellbutri n XL 300 mg 24 hr tablet, extended release take 1 tablet by oral route every day 02/07 completed Prescrib ed Elsewher e: No Locat ion: [facility] odify By: mike armendariz DateTime : [...] Prescrib ed Elsewher e: No Locat ion: [facility] odify By: mike Alvarez ncounter DateTime : 02/08/20 18 01:45:00 PM Not Available Not Available Not Available Lo Loestrin Fe 1 mg-10 mcg (24)/10 mcg (2) tablet take 1 tablet by oral route every day 01/04 completed Prescrib ed Elsewher e: No Locat ion: [facility] odify By: mike [address]varez ncounter DateTime : [...] Updated DateTime 07/30/2021 161.93 cm 46.7 kg/m2 138042.9 4 g 127 mm[Hg] 84 mm[Hg] Kari Najera [facility] 09:53:20 Date Recorded Body height Body mass index (BMI) Body weight Systolic blood pressure Diastolic blood pressure Provider Name and Address Organization Details Last Updated DateTime 02/17/2024 160.02 cm 45.5 kg/m2 008405.2 4 g 136 mm[Hg] 91 mm[Hg] Sabi Roca [facility] 4 10:12:21 Social History Question Answer Notes LastModified by Organizat ion Details LastModified Time Tobacco Smoking Status Never Smoker Kari sumner, [facility] 07/30/2021 09:56:22 What Is Your Level Of Alcohol Consumption? Occasional Information not available 07/30/2021 If You Are , What Was Your Level Of Alcohol Consumption Prior To ? None [email or web address] Information not available 07/30/2021 Are You Blind Or Do You Have Difficulty Seeing? No [email or web address] Information n ot available 07/30/2021 What Is Your Level Of Caffeine Consumption? Occasional [email or web address] Information not available 07/30/2021 In The 14 Days Before Symptom Onset, Have You Had Close Contact With A Laboratory-confirm ed COVID-19 While That Case Was Ill? No Information n ot available 07/30/2021 In The 14 Days Before Symptom Onset, Have You Had Close Contact With A Person Who Is Under Investigation For COVID-19 While That Person Was Ill? No Information not available 07/30/2021 Have You Been To An Area Known To Be High Risk For COVID-19? No [email or web address] Information not available 07/30/2021 Are You Deaf Or Do You Have Serious Difficulty Hearing? No [email or web address] Information not available 07/30/2021 What Type Of Diet Are You Following? REGULAR [email or web address] Information n ot available 07/30/2021 Do You Use Your Seat Belt Or Car Seat Routinely? Yes [email or web address] Information not available 07/30/2021 Do You Have Smoke And Carbon Monoxide Detectors In Your Home? Yes [email or web address] Information not available 07/30/2021 Do You Feel Stressed (tense, Restless, Nervous, Or Anxious, Or Unable To Sleep At Night)? [id number] [email or web address] Information not available 07/30/2021 Do You Use Any Illicit Or Recreational Drugs? No [email or web address] Information not available 07/30/2021 Do You Use Sunscreen Routinely? Yes Information not available 07/30/2021 Has Tobacco Cessation Counseling Been Provided? No [email or web address] Information not available 07/30/2021 Do You Or Have You Ever Used Any Other Forms Of Tobacco Or Nicotine? No [email or web address] Information not available 07/30/2021 Sex: Unknown Functional Status Question Answer Note LastModified by Organizat ion Details LastModified Time Are you able to walk? YESWOREST [email or web address] Information not available 07/30/2021 What is your exercise level? Occasional Information not available 07/30/2021 Mental Status None recorded. Family History Relationship Description Onset Age of this Age Resolved Age Notes LastModified by Organization Details LastModified Time Maternal Aunt Malignant tumor of colon Not available 07/29 17:29:59 Maternal Aunt Heart disease [email or web address] Not available 07/29 17:30:47 Paternal Grandmother Malignant tumor of breast Not available 07/29 17:30:21 Maternal Grandmother Malignant tumor of breast [email or web address] Not available 07/29 17:30:21 Maternal Grandmother Malignant neoplasm of liver [email or web address] Not available 07/29 17:32:14 Mother Heart disease [email or web address] Not available 07/29 17:30:47 Mother Hypertensive disorder [email or web address] Not available 07/29 17:31:17 Maternal Uncle Heart disease [email or web address] Not available 07/29 17:30:47 Sister Hypertensive disorder [email or web address] Not available 07/29 17:31:17 Sister Diabetes mellitus [email or web address] Not available 07/29 17:31:31 Father Diabetes mellitus [email or web address] Not available 07/29 17:31:42 Father Hypertensive disorder [email or web address] Not available 07/29 17:32:24 Notes:Father: Diabetes melli tus, Hypertension Maternal aunt: Cancer, colon Maternal aunts x 3: heart disease Maternal grandfather: Hypertension, cancer, liver Maternal grandmother: Cancer, breast Maternal uncle: heart disease Mother: Hypertension, heart disease Paternal grandfather: Diabetes mellitus Paternal grandmother: Cancer, breast Sister: Hypertension, Diabetes mellitus Medical History Condition Response Allergies (Food, seasonal, environmental ) N Other Y Drug/Latex Allergies/Reactions Y Blood Transfusion N Breast Cancer N Dermatologic Disorders N Lung Disease N Defects or Inherited Disease N Breast Problem Y Gestational Diabetes N Hematologic disorders N Anesthesia Complications N History of STI Y Deep Vein Thrombosis N Polycystic ovary syndrome N Anxiety Disorder Y Autoimmune disease N Arthritis N Polyps N Infertility N Acid Reflux (GERD) Y History of abnormal pap Y Cancer N Varicosities N Stroke N Neurologic/Epilepsy N Endometriosis N High Cholesterol N Fibromyalgia N Headaches N Kidney Disease N Heart Problems N Thyroid Problems Y Kidney or Bladder Problems N GI Problems N Eating Disorder N Anemia [...] SNOMED-CT Code Diagnosis ICD10 Code Diagnosis Note [id number] Solange Ye CNM [place] [address] [address] 07/30/2021 09:41:09 07/30/2021 15:54:38 Gynecologic examination 04615011 Z01.419 Dyspareunia 97915416 N94 .10 f/u pending [id number] [facility] [address] [address] 08/01/2021 16:05:54 08/01/2021 16:54:26 Dyspareunia 75184183 N94.10 [id number] ALCIDES Isaac [place] [address] [address] 02/17/2024 10:04:57 02/17/2024 10:41:21 Gynecologic examination 79327185 Z01.419 WWEBC - BTLpap updateddec lined STI screenmamm ogram order givencolon oscopy UTDroutine labs/PCPge netic testing discussed/ fam hx reviewedBP precaution s reviewedRT C in 1 yr or sooner if needed Suggested Calcium with Vitamin D daily. Patient advised to get an annual flu shot in the fall and she could obtain at [facility] or [facility] care clinic. Also to obtain TDap vaccinatio [...] email. Screening for malignant neoplasm of breast 490969676 Z12.39 Health Concerns Section Related Observation LastModified by Organization Detai ls LastModified Time None Recorded Concern Status LastModified by Organization Details LastModified Time None Recorded Advance Directives Directive None Recorded Payers Encounter Date Sequence Insurance Name Policy Number Policy Castro Covered Member ID Castro Member ID Guarantor Name 07/30/2021 1 [employer] - DOS PRIOR TO 21 - [facility] BENEFITS PLAN [id number] Austin Mckeon [id number] OI Austin Dong 08/01/2021 1 [employer] - DOS PRIOR TO 21 - [facility] BEN[employer]ITS PLAN [id number] Austin Mckeon [id number] OI Austin Dong 02/17/2024 1 [employer] - [facility] [employer]AN [id number] Austin Dong [id number] JC Dong Notes Date Note Type Note [...] again Solange Ye CNM [address], [place], [address], [facility] 07/30/2021 10:58:55 02/17/2024 text/html Annual GYNReport [...] to repeat ALCIDES Isaac [address], [place], [address], [facility] 02/17/2024 10:36:51 OBGyn Episode Ob Episode Information Episode Created Date Number of Fetuses Patient Bloodtype Patient rh Status Prepregnancy Weight lbs Domestic Partner Domestic Partner Phone Father Name Straddle Buggy Operator Status 07/29/20 21 1 CLOSED Fetus Data First Name Last Name Admitted to NICU Weight (g) Sex Living Outcome Pediatric Complications Fetus ID Race Codes Race Delivery Type , Induced [id number] Solomon Calculation Initial Solomon Date Initial Exam [...] Domestic Partner Domestic Partner Phone Father Name Straddle Buggy Operator Status 07/29/20 21 1 CLOSED Fetus Data First Name Last Name Admitted to NICU Weight (g) Sex Living Outcome Pediatric Complications Fetus ID Race Codes Race Delivery Type 3373.36 3704 F Full Term 93844 Vaginal Delivery Solomon Calculation Initial Solomon Date [...] Domestic Partner Domestic Partner Phone Father Name Straddle Buggy Operator Status 07/29/20 21 1 CLOSED Fetus Data First Name Last Name Admitted to NICU Weight (g) Sex Living Outcome Pediatric Complications Fetus ID Race Codes Race Delivery Type 3770.25 6704 M Full Term 23538 Vaginal Delivery Solomon Calculation Initial Solomon Date [...] Domestic Partner Domestic Partner Phone Father Name Straddle Buggy Operator Status 07/29/20 21 1 CLOSED Fetus Data First Name Last Name Admitted to NICU Weight (g) Sex Living Outcome Pediatric Complications Fetus ID Race Codes Race Delivery Type , Spontane ous 73179 Solomon Calculation Initial Solomon Date Initial Exam [...] Domestic Partner Domestic Partner Phone Father Name Straddle Buggy Operator Status 07/29/20 21 1 CLOSED Fetus Data First Name Last Name Admitted to NICU Weight (g) Sex Living Outcome Pediatric Complications Fetus ID Race Codes Race Delivery Type 4110.45 0704 M Full Term [address] Vaginal Delivery Solomon Calculation Initial Solomon Date [...] Domestic Partner Domestic Partner Phone Father Name Straddle Buggy Operator Status 07/29/20 21 1 CLOSED Fetus Data First Name Last Name Admitted to NICU Weight (g) Sex Living Outcome Pediatric Complications Fetus ID Race Codes Race Delivery Type , Spontane ous [id number] Solomon Calculation Initial Solomon Date Initial Exam [...]
--- OUTSIDE RECORDS SUMMARY | 2025-01-31 01:28 | XMS_ITS | Clinical Summary ---
Author Organization [facility] [place] Vj amezquita [facility] Address [address] [place] [address] Care Team Providers Care Living Supervisor Name Role Phone Unavailable Primary Care Provider Unavailabl e Social History Tobacco Use Types Packs/Day Years Used Date Smoking Tobacco: Never Assessed Comments Unknown Sex and Gender Information Value Date Recorded Sex Assigned at Not on file Legal Sex Female 8:40 AM OFFAL ROLLER Gender Identity Not on file Sexual Orientation Not on file Plan of Treatment Upcoming Encounters Date Type Department Care Team (Late st Contact Info) Description 02/02/2025 2:00 PM OFFAL ROLLER Office Visit [facility] [place] Oncology and Hematology - [place] [address] [facility] [address] [place] [address] Neal Mena MD [address] [facility] [address] [place] [address] Health Maintenance Due Date Last Done Comments DTAP/TDAP/TD VACCINES (1 - Tdap) 1997 HEPATITIS B VACCINES (1 of 3 - 19+ 3-dose series) 1997 CERVICAL CANCER SCREENING 02/05/2008 BREAST CANCER SCREENING 2018 COLORECTAL SCREENING 2023 Colorectal Cancer Screening 2023 FIT-DNA Q 3 years 2023 FIT/FOBT Q 1 year 2023 Flex Sig/CT Colonography Q 5 years 2023 INFLUENZA VACCINE (#1) 2024 HPV VACCINES Aged Out No longer eligi ble based on patient's age to complete this topic Insurance Consult A Doctor O OPEN ACCESS
--- OUTSIDE RECORDS SUMMARY | 2025-01-31 01:28 | XMS_ITS | Data Portability ---
Author Organization [facility], Main Office Address [address] [place] [address] Assessment No assessment recorded. Plan of Treatment Reminders Order Date Submit Date Provider Last Modified By Organization Details Last Modified Time Details Appointments None recorded. Lab None recorded. Referral None recorded. Procedures None recorded. Surgeries None recorded. Imaging audiogram + tympanogram 2023 024 APOLONIA [facility], [address] [place] [address], [facility] [address], [place], [address], 4 05:55:22 Medication Orders None recorded. Patient TargetsNo targets recorded. Patient Instructions Encounter Date Encounter Id Patient Instructions Last Modified By Organization Details Last Modified Time 09/13/2024 [id number] alia-hallpike test* APOLONIA Not available 11/08/2024 04:26:56 continue use of meclizine as needed for vertigo symptoms. She will see PT for [place]-Hallpike testing for possible BPPV. We will also obtain an audiogram and tympanogram for further testing. Not available 09/13/2024 16:04:48 Reason for Referral None Reported. Problems Name Problem SNOMED Code Status Onset Date Resolution Date Notes Provider Name and Address Organization Details Recorded Time Vertigo 509792683 Active 2023 Prince Calderon CMA null, [facility] 4 15:59:06 Sensorineural hearing loss 55324770 Active 2023 Prince Calderon CMA null, [facility] 4 16:00:48 Benign paroxysmal positional vertigo 646391813 Active 2023 HUGH Arrington [address] [facility], [facility] [address], [place], [address] , [place] [facility] 16:03:52 Problem Notes None recorded. Procedures Surgical History Date Name Laterality Status Provider Name and Address Organization Details Recorded Time 07/31/20 19 Tubal Ligation completed Prince Calderon CMA [facility] 09/13/2024 15:42:59 12/30/19 04 cholecystectomy completed Prince Calderon CMA [facility] 09/13/2024 15:42:31 Imaging Results None recorded. Procedure Notes None recorded. Medical Equipment None Reported. Allergies Allergen ID Allergen Name Allergen Category Reaction Reaction Severity Criticality Documentation Date Start Date Code Code System Note Provider Name and Address Organization Details Recorded Time 93578 Toradol medicatio n palpitati ons Not available Not available 09/12/2024 97373 RxNorm Lynn Bustamantencer [facility] 12:54:34 85030 Stadol medicatio n palpitati ons Not available Not available 09/13/2024 98143 RxNorm Prince Calderon CMA [facility] 15:38:10 Medications Name Sig Start Date [...] Address Organization Details Last Updated DateTime 09/13/2024 323635.2 g 98 [degF] 45 kg/m2 162.56 cm Prince Calderon CMA [facility] 09/13/2024 15:37:32 Social History Question Answer Notes LastModified by Organizat ion Details LastModified Time Tobacco Smoking Status Never Smoker Lynnxavier Bustamanterhoda sumner [facility] 09/12/2024 12:56:45 What Is Your Level Of Alcohol Consumption? None [email or web address] Information not available 09/12/2024 What Is Your Level Of Caffeine Consumption? Occasional Coffee Information not available 09/13/2024 Sex: Unknown Functional Status None recorded. Mental Status None recorded. Family History Relationship Description Onset Age of this Age Resolved Age Notes LastModified by Organization Details LastModified Time Father Diabetes mellitus [email or web address] Not available 2023 15:43:22 Father Family history of stroke [email or web address] Not available 2023 15:43:39 Mother Heart disease [email or web address] Not available 2023 15:43:46 Medical History Condition [...] HAVE YOU BEEN HOSPITALIZED [facility] IN THE PAST YEAR ? N [...] SNOMED-CT Code Diagnosis ICD10 Code Diagnosis Note [id number] HUGH Arrington [facility] [place] [address] [place] [address] 09/13/2024 15:26:45 09/13/2024 16:05:18 Benign paroxysmal positional vertigo 638483918 H81.10 Health Concerns Section Related Observation LastModified by Organization Detai ls LastModified Time None Recorded Concern Status LastModified by Organization Details LastModified Time None Recorded Advance Directives Directive None Recorded Payers Encounter Date Sequence Insurance Name Policy Number Policy Castro Covered Member ID Castro Member ID Guarantor Name 09/13/2024 1 [employer] - OPEN ACCESS Austin Dong [id number] Austin Dong Notes Date Note Type Note [...] also notes if she moves her head [id number] quickly this can also elicit symptoms. She also reports that when her spouse was watching football on the television the other day, this too was causing vertigo like symptoms. Bettie Ibarra, SYSTEMS DESIGN ENGINEER [address] [facility], [place] [address], [place], [address], [facility] 09/13/2024 16:04:52 OBGyn Episode No OBEpisode recorded.
--- OUTSIDE RECORDS SUMMARY | 2025-01-31 01:28 | XMS_ITS | Referral Summary ---
Author Organization [facility] Physician Office Building [address] [place] [address] Care Team Providers Care Project Consultant Name Role Phone Trey Shen MD Primary Care Provider Encounters Date Type Department Care Team Description 12/05/2024 4:00 PM HUMAN RESOURCES DEPARTMENT SUPERVISOR Telemedicine [facility] Diabetes [facility] Nutrition Services [address] [place] [address] [address] [place] [address] Carmela Siddiqui PA Encounter for weight loss counseling (Primary Dx); Metabolic syndrome; Obesity, Class III, BMI 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) (HCC); Acquired hypothyroidism; Vitamin D deficiency; Encounter for exercise counseling; Body mass index 45.0-49.9, adult (HCC) 11/15/2024 Telephone [facility] Diabetes and Nutrition Services [facility] Medical Office Building 4, [address] [place] [address] Carmela Siddiqui PA Med Refill [...] 12/05/2024 Assessment & Plan (12/05/2024 3:05 PM HUMAN RESOURCES DEPARTMENT SUPERVISOR): I counseled the patient on exercise: [...] 12/05/2024 Assessment & Plan (12/05/2024 3:57 PM HUMAN RESOURCES DEPARTMENT SUPERVISOR): Patient's highest BMI was 48.6 ; initial BMI was 46.8; this has improved to 41.07 through medical management Vitamin D deficiency 09/12/2024 Assessment & Plan (12/05/2024 3:06 PM HUMAN RESOURCES DEPARTMENT SUPERVISOR): Continue vitamin-D supplementation Assessment & Plan (09/12/2024 4:10 PM CDT): start vitamin-D replacement 5,000IU daily Encounter for weight loss counseling 07/11/2024 Assessment & Plan (12/05/2024 3:05 PM HUMAN RESOURCES DEPARTMENT SUPERVISOR): Reviewed importance of adequate protein intake. [...] 07/11/2024 Assessment & Plan (12/05/2024 3:05 PM HUMAN RESOURCES DEPARTMENT SUPERVISOR): Obesity is one of the leading [...] 03/21/2018 Assessment & Plan (12/05/2024 4:18 PM HUMAN RESOURCES DEPARTMENT SUPERVISOR): Reviewed most recent labs. Continue low [...] 03/21/2018 Assessment & Plan (12/05/2024 3:05 PM HUMAN RESOURCES DEPARTMENT SUPERVISOR): Continue current dose of levothyroxine. Assessment [...] on file Legal Sex Female 7:08 PM HUMAN RESOURCES DEPARTMENT SUPERVISOR Gender Identity Not on file Sexual [...] (239 lb 6.4 oz) 12/05/2024 3:55 PM HUMAN RESOURCES DEPARTMENT SUPERVISOR Height 162.6 cm (5' 4.02 ) 12/05/2024 3:55 PM CS T Body Mass Index 41.07 12/05/2024 3:55 PM HUMAN RESOURCES DEPARTMENT SUPERVISOR Plan of Treatment Not on file Insurance [employer] [facility] [id number] Care Teams Project Consultant Relationship Specialty Start Date End Date Trey Shen MD [address] [facility] [address] [place] [address] PCP - General Family Medicine 03/10/18
--- OUTSIDE RECORDS SUMMARY | 2025-01-31 01:28 | XMS_ITS | Clinical Summary ---
Author Organization [facility] Physician Office Building [address] [place] [address] Care Team Providers Care Staff Physical Therapist Name Role Phone Trey Shen MD Primary [...] 12/05/2024 Assessment & Plan (12/05/2024 3:05 PM RINKMAN): I counseled the patient on exercise: Recommend [...] 12/05/2024 Assessment & Plan (12/05/2024 3:57 PM RINKMAN): Patient's highest BMI was 48.6 ; initial BMI was 46.8; this has improved to 41.07 through medical management Vitamin D deficiency 09/12/2024 Assessment & Plan (12/05/2024 3:06 PM RINKMAN): Continue vitamin-D supplementation Assessment & Plan (09/12/2024 4:10 PM CDT): start vitamin-D replacement 5,000IU daily Encounter for weight loss counseling 07/11/2024 Assessment & Plan (12/05/2024 3:05 PM RINKMAN): Reviewed importance of adequate protein intake. Reviewed [...] 07/11/2024 Assessment & Plan (12/05/2024 3:05 PM RINKMAN): Obesity is one of the leading risk [...] 03/21/2018 Assessment & Plan (12/05/2024 4:18 PM RINKMAN): Reviewed most recent labs. Continue low carb, [...] 03/21/2018 Assessment & Plan (12/05/2024 3:05 PM RINKMAN): Continue current dose of levothyroxine. Assessment & [...] Department Care Team Description 12/05/2024 4:00 PM RINKMAN Telemedicine [facility] Diabetes and Nutrition Services [address] [place] [address] [address] [place] [address] Carmela Siddiqui PA Encounter for weight loss counseling (Primary Dx); Metabolic syndrome; Obesity, Class III, BMI 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) (HCC); Acquired hypothyroidism; Vitamin D deficiency; Encounter for exercise counseling; Body mass index 45.0-49.9, adult (HCC) 11/15/2024 Telephone [facility] Diabetes and Nutrition Services [address] Medical Office Building [address], [address] [place] [address] Carmela Siddiqui PA Med Refill [...] on file Legal Sex Female 7:08 PM RINKMAN Gender Identity Not on file Sexual Orientation [...] (239 lb 6.4 oz) 025 3:55 PM RINKMAN Height 162.6 cm (5' 4.02 ) 12/05/2024 3:55 PM CS T Body Mass Index 41.07 12/05/2024 3:55 PM RINKMAN Plan of Treatment Health Maintenance Due Date [...] patient's age to complete this topic Insurance [employer] [facility] [id number] Care Teams Staff Physical Therapist Relationship Specialty Start Date End Date Trey Shen MD [address] [address] PCP - General Family Medicine 03/10/18
--- NOTE | 2025-01-31 06:37 | P.PNAN_ITS ---
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 Patient Data Age: 44 Gender: F Height: 1.63 m Weight: 109 kg Allergies Allergy/AdvReac Type Severity Reaction Status Date / Time butorphanol Allergy Intermediate Palpitation Verified 01/25/25 12:17 s egg Allergy Intermediate VOMITTING Verified 01/25/25 12:17 ketorolac Allergy Intermediate Palpitation Verified 01/25/25 12:17 s Home Medications ?Medication ?Instructions ?Recorded ?Confirmed ?Type ivermectin 1 % topical cream 1 applic topical DIRECTED 08/30/23 01/25/25 History (Soolantra) levothyroxine 175 mcg tablet 175 mcg PO DAILY #90 tabs 06/17/24 01/25/25 Rx meclizine 25 mg tablet 25 mg PO TID PRN dizziness 10 days 09/11/24 01/25/25 Rx #30 tabs tirzepatide (weight loss) 10 10 mg subcut WEEKLY 11/26/24 01/25/25 History mg/0.5 mL subcutaneous pen injector (Zepbound) sertraline 50 mg tablet 50 mg PO DAILY #90 tabs 01/08/25 01/25/25 Rx cholecalciferol (vitamin D3) 10 6,000 unit PO DAILY 01/25/25 01/25/25 History mcg (400 unit) chewable tablet (Vitamin D3) multivitamin (Daily Multi-Vitamin 1 tablet PO DAILY 01/25/25 01/25/25 History tablet) Patient hx anesthesia problems: none Family hx anesthesia problems: none Results Review: All pre-operative results and documents have been reviewed as part of the pre- operative evaluation. [facility] Past Medical History Medical History Morbid obesity Rosacea Anxiety Diarrhea Otitis media Depression Hypothyroidism, unspecified Migraine without aura and without status migrainosus, not intractable Surgical History Surgical History (Updated 01/31/25 @ 06:37 by Miguel Angel Prado MD) H/O breast biopsy Family History Family History Sibling Hypertension Patient's sister is in good health, Onset Age: 38 Patient's brother is in good health, Onset Age: 33 Family history of elevated blood lipids, Onset Age: 36 Diabetes mellitus Father Hypertension Family history of elevated blood lipids, Onset Age: 57 Family history of diabetes mellitus in first degree relative, Onset Age: 57 Diabetes mellitus Mother Family history of chronic obstructive pulmonary disease Family history of coronary artery disease, Onset Age: 54 Social History Social History Smoking status: Never smoker Second hand tobacco smoke exposure: No Alcohol intake: never Substance use: never Substance use type: does not use Do You Feel Safe in your Home?: Yes Lack of Transportation: No Lack of Food: Never True Current Housing: Decline to Answer Concerned About Future Housing: Decline to Answer Difficulty Paying Gas/Electric Bills: Decline to Answer Difficulty Paying for Meds: Decline to Answer Currently Unemployed: Decline to Answer Education: Decline to Answer Difficulty w/ Childcare or Family Care: Decline to Answer Living arrangements: with family Occupation/Education: occupation Gender identity (if verbalized by the patient): Female Sexual Orientation (if Verbalized by the Patient): Straight or Heterosexual Spiritual care concerns: No Anes - Eval Final PreProcedure Day of Procedure 01/31/25 06:37 Patient weight: morbidly obese Heart: regular rate and rhythm Lungs: clear to auscultation Airway: Mallampati scale class II Neurological: alert and oriented Last oral intake: >/= 8 hours ASA classification: III Emergent: no Anesthetic plan: proceed Anesthesia type and monitoring: general GIVS and standard monitoring Results Review: All pre-operative results and documents have been reviewed as part of the pre- operative evaluation. Informed Consent: The patient's anesthetic plan and its attendant risks and benefits were discussed with the patient/family/POA. Questions were solicited and answers provided to the satisfaction of the patient/family/POA.
[2025-01-31 06:58] VITALS: BP 128/80; PULSE 73; TEMP 36.2; O2SAT 98; BMI 42.1
--- NOTE | 2025-01-31 07:02 | WPDHPUPDATE1 ---
History and Physical Update Update Date/Time: 01/31/25 07:02 - Port-a-cath placement under fluoroscopy. History and Physical has been reviewed, including an updated exam of the patient. There are NO changes in the patient's condition. Risks, benefits, and alternatives have been discussed and questions answered. Patient agrees to proceed with procedure.
[2025-01-31] MEDS: LACTATED RINGERS 1,000 ML 30 ML IV CONT ×2 (07:09→08:34)
[2025-01-31 07:11] LABS: BEDSIDEPREGUCG Negative (Negative)
[2025-01-31] MEDS: ceFAZolin 2 GM/D5W 50 ML 2 GM/50 ML BAG IVPB (07:28)
[2025-01-31] MEDS: HEPARIN SODIUM 5,000 UNITS/ML VIAL 5000 UNITS IRRIGATION (07:47)
[2025-01-31] MEDS: HEPARIN SODIUM, PORCINE 10,000 UNITS/10 ML VIAL 4000 UNITS IV PUSH (07:48)
[2025-01-31] MEDS: BUPIVACAINE/EPINEPHRINE 0.5% 50 ML VIAL 20 ML INFILTRATE (07:57)
--- NOTE | 2025-01-31 08:29 | W.PM.PROC2 ---
Procedure Note - Detailed Date of Procedure 01/31/25 Pre-op Diagnosis invasive ductal CA left breast Post-op Diagnosis Same Procedure Performed Right internal jugular mediport placement under US guidance and fluoroscopy Surgeon Traci Yuan MD Bull Wheel Worker Carlyn Longoria PA-C Anesthesia MAC Description of Procedure Patient was identified in the preoperative holding area brought to the operating room suite. She was laid supine in the OR table. Sequential compression devices were applied. Moderate sedation anesthesia was induced without difficulty. The right neck was prepped and draped as well as the left chest an axillary incision in a sterile fashion. Attention was turned to the right neck. Ultrasound was used to identify the internal jugular vein and a small incision was made overlying this area. Local anesthetic was infiltrated in the subcutaneous tissue and a needle was then slowly advanced under ultrasound guidance into the lumen of the internal jugular vein. Once dark venous blood was aspirated the syringe was removed and a guidewire was introduced into the internal jugular vein. Fluoroscopy images were obtained to verify the position of the wire going down into the superior vena cava. Once this was confirmed a small pocket was made by making a small incision with a 15 blade in the right upper chest. Dissection was carried down through the subcutaneous tissue and a small pocket was created for the future port. Hemostasis was assured. I then proceed to tunnel the catheter from this pocket to the neck after injecting local anesthetic in the subcutaneous tissue of the neck. Fluoroscopy images were obtained to measure the length of the catheter with the tip at the cavoatrial junction. The catheter was then cut distally at approximately 24 cm and connected to port. The port was then flushed with saline. An introducer with the peel-away sheath was then introduced into internal jugular vein under fluoroscopy guidance using the previously placed wire. The wire was removed as well as the introducer leaving the peel-away sheath. The catheter was then introduced into the IJ via the peel-away sheath which was slowly removed. Once the catheter was in good position, I was able to aspirate dark venous blood and easily flushed the port using the garcia needle. A x-ray picture was taking to ensure there is no kinks throughout the catheter and the catheter tip was in good position at the superior aspect of the cavoatrial junction. Once this was performed the port was then secured to pectoralis fascia using interrupted silk sutures and placed into the subcutaneous pocket. The port was again aspirated and flushed with heparinized saline. The deep dermal layer was closed with interrupted Vicryl and the skin was closed with 4-0 Monocryl in a subcuticular fashion. The small incision in the neck was closed with a single interrupted Monocryl suture. Dermabond was applied to all the incisions. Patient was awoken from anesthesia and taken to the recovery area in stable condition. All needles, sponges and instruments counts were correct as reported by the OR staff. Patient tolerated the procedure well with no immediate complications. Estimated Blood Loss 10 Pathology None sent Complications No immediate complications Condition Stable Disposition PACU [facility] Billing Surgery - Charge Forward: Surgery Billing
[2025-01-31 08:34] VITALS: BP 94/53; PULSE 78; RESP 13; O2SAT 93
[2025-01-31] MEDS: ONDANSETRON INJ 4 MG/2 ML VIAL IV PUSH (08:55)
[2025-01-31 09:00] VITALS: BP 104/58; PULSE 71; RESP 20
[2025-01-31] MEDS: fentaNYL CITRATE INJ (*CRX) 100 MCG/2 ML VIAL 25 MCG IV PUSH ×3 (09:09→09:30)
[2025-01-31 09:30] VITALS: BP 121/74; PULSE 66; RESP 20
[2025-01-31 10:00] VITALS: BP 117/74; PULSE 70; RESP 20
[2025-01-31 10:15] VITALS: BP 122/70; PULSE 74; RESP 20
== END 2025-01-31 10:18 | disposition home or self-care (01) ==
PROVIDERS: PCP Family Medicine; Visit Provider Surgery
PROC: (CPT 36561; principal; 2025-01-31 07:30)
DX: C50.212 Malignant neoplasm of upper-inner quadrant of left female breast (principal); C77.3 Secondary and unspecified malignant neoplasm of axilla and upper limb lymph nodes; Z17.31 Human epidermal growth factor receptor 2 positive status; E66.01 Morbid (severe) obesity due to excess calories; Z68.41 Body mass index [BMI] 40.0-44.9, adult
CPT/HCPCS: 36561; 77001; C1788; J0690; J1100; J1644; J2003; J2250; J2405; J2704; J3010; J7030; J7120

== ENCOUNTER 2025-02-07 07:49 | Outpatient (CLI) | payer OTHER, SELFPAY ==
--- NOTE | 2025-02-07 | ECHO_ITS ---
Patient Info Name: Austin Dong Age: 45 years : 1980 Gender: Female Ht: 64 in Wt: 237 lbs BSA: 2.26 m2 HR: 68 bpm BP: 123 / 98 mmHg Technical Quality: Good Exam Date: 02/07/2025 8:15 AM Exam Location: Echo Lab Patient Status: Outpatient Admit Date: 02/07/2025 Staff Ordering Physician: Neal Mena MD Low Voltage Technician: Sarah Bailey RDCS Attending Provider: Neal Mena MD Referring Physician: Trina HAILE; Exam Type: CA echo doppler color flow Study Info Indications - Breast cancer Complete two-dimensional, color flow and Doppler transthoracic echocardiogram is performed. Summary 1. Complete two-dimensional, color flow and Doppler transthoracic echocardiogram is performed. 2. Left ventricular chamber dimension is normal. 3. Left ventricular systolic function is normal, estimated at 60-65%. 4. The left ventricular diastolic function is normal. 5. E/e' 6 is not elevated. 6. Global longitudinal strain is normal at -18.4%. 7. No pulmonary hypertension, estimated pulmonary arterial systolic pressure is 19 mmHg. Left Ventricle E/e' 6 is not elevated. Global longitudinal strain is normal at -18.4%. Left ventricular chamber dimension is normal. Left ventricular systolic function is normal, estimated at 60-65%. The left ventricular diastolic function is normal. Right Ventricle Right ventricular systolic function is normal and with normal TAPSE 2.2 cm. Right ventricular chamber dimension is normal. Left Atria Left atrial chamber dimension is normal. Right Atria Right atrial chamber dimension is normal. Aortic Valve The aortic valve is trileaflet. There is no aortic valve stenosis. There is no aortic valve regurgitation. Pulmonic Valve There is no pulmonic regurgitation. Mitral Valve There is no mitral valve stenosis. There is no mitral valve regurgitation. Tricuspid Valve There is no tricuspid valve regurgitation. No pulmonary hypertension, estimated pulmonary arterial systolic pressure is 19 mmHg. Pericardium/Pleural There is no pericardial effusion. Inferior Vena Cava Normal inferior vena cava with >50% collapse upon inspiration consistent with normal right atrial pressure, 5 mmHg. Aorta The aortic root size at the sinus of Valsalva is normal. Left Ventricular Outflow Tract Name Value Normal LVOT 2D LVOT Diameter 1.9 cm LVOT Doppler LVOT Peak Gradient 6 mmHg LVOT Mean Gradient 3 mmHg LVOT VTI 25 cm LVOT VTI/AV VTI Ratio 0.8 LVOT Stroke Volume 68 ml LVOT CO 14.4 l/min LVOT CI 6.4 l/min/m2 Pulmonic Valve Name Value Normal PV Doppler PV Peak Gradient 4 mmHg Mitral Valve Name Value Normal MV Doppler MV Decel Pettis 411 cm/s2 MV PHT 58 ms MV Area (PHT) 3.8 cm2 4.0-5.0 MV Diastolic Function MV E Peak Velocity 82 cm/s MV A Peak Velocity 71 cm/s MV E/A 1.1 MV Decel Time 199 ms MV Annular TDI MV E/e' (Septal) 7.9 <=8.0 MV E/e' (Lateral) 6.0 <=8.0 MV E/e' (Average) 6.9 Tricuspid Valve Name Value Normal TV Regurgitation Doppler TR Peak Velocity 190 cm/s TR Peak Gradient 14 mmHg Estimated PAP/RSVP RA Pressure 5 mmHg <=5 PA Systolic Pressure 19 mmHg <36 RV Systolic Pressure 19 mmHg <36 Aorta Name Value Normal Ascending Aorta Ao Root Diameter (MM) 3.1 cm Ao Root Diam Index (MM) 1.4 cm/m2 Aortic Valve Name Value Normal AV Doppler AV Peak Velocity 139 cm/s AV Peak Gradient 8 mmHg AV Mean Gradient 5 mmHg AV VTI 29 cm AV Area (Cont Eq VTI) 2.3 cm2 >=3.0 AV Area (Cont Eq Popeye) 2.4 cm2 AV Regurgitation 2D LVOT Area 2.8 cm2 Ventricles Name Value Normal LV Dimensions 2D/MM IVS Diastolic Thickness (2D) 0.8 cm 0.6-1.0 LVID Diastole (2D) 4.6 cm 3.8-5.2 LVIW Diastolic Thickness (2D) 1.0 cm 0.6-0.9 LVID Systole (2D) 2.9 cm 2.2-3.5 LVOT Diameter 1.9 cm LV Mass (2D Cubed) 138.24 g 67.00-162.00 LV Mass Index (2D Cubed) 61 g/m2 43-95 Relative Wall Thickness (2D) 0.42 LV Fractional Shortening/Ejection Fraction 2D/MM LV Fractional Shortening (2D) 37 % 27-45 LV EF (2D Teicholz) 67 % 54-74 LV Diastolic Volume (4C MOD) 79 ml LV EF (4C MOD) 58 % LV Diastolic Volume (2C MOD) 84 ml LV EF (2C MOD) 59 % LV Diastolic Volume (BP MOD) 84 ml 46-106 LV Diastolic Volume Index (BP MOD) 37 ml/m2 29-61 LV Systolic Volume (BP MOD) 35 ml 14-42 LV Systolic Volume Index (BP MOD) 15 ml/m2 8-24 LV EF (BP MOD) 58 % 54-74 LV Diastolic Length (4C) 7.6 cm LV Systolic Length (4C) 6.6 cm LV Stroke Volume (4C MOD) 46 ml RV Dimensions 2D/MM RVID Diastole (2D) 3.5 cm 2.5-3.5 Atria Name Value Normal LA Dimensions LA Dimension (MM) 3.2 cm 2.7-3.8 LA Volume (4C A-L) 39 ml LA Volume (BP A-L) 46 ml RA Dimensions RA Area (4C) 14.1 cm2 <=18.0 EchoPAC Name Value Normal AutoEF LVCO_BiP_Q (Ncos9JKL) 3.2 l/min LVEF_BiP_Q (Cvbf6WRE) 57 % LVSV_BiP_Q (Fgze3KGD) 48 ml LVVED_BiP_Q (Yhau8OJO) 84 ml LVVES_BiP_Q (Zfhk6FAV) 36 ml HR_4Ch_Q (Bgsn6XLD) 68 bpm LVCO_4Ch_Q (Yuhj7DDF) 3.0 l/min LVEF_4Ch_Q (Wswl3UJF) 56 % LVLd_4Ch_Q (Plol5WAZ) 8.4 cm LVLs_4Ch_Q (Quwf6NIB) 6.9 cm LVSV_4Ch_Q (Wmjy5GJC) 44 ml LVVED_4Ch_Q (Dxhj5YVT) 79 ml LVVES_4Ch_Q (Juvb9UVH) 34 ml HR_2Ch_Q (Xsbk2BYU) 62 bpm LVCO_2Ch_Q (Wrxa1QLJ) 3.3 l/min LVEF_2Ch_Q (Hhol1UIH) 58 % LVLd_2Ch_Q (Ulcc2UNR) 8.2 cm LVLs_2Ch_Q (Ihas1GQW) 6.6 cm LVSV_2Ch_Q (Fzfe3LSH) 53 ml LVVED_2Ch_Q (Pktk9VZG) 92 ml LVVES_2Ch_Q (Nuiu9QVR) 38 ml RADHA AA peak sys SL (AWMA) 15.6 % AAS peak sys SL (AWMA) 24.6 % AI peak sys SL (AWMA) 28.6 % AL peak sys SL (AWMA) 15.3 % AP peak sys SL (AWMA) 19.8 % peak sys SL (AWMA) 17.7 % AVC (AWMA) 405 ms BA peak sys SL (AWMA) 22.7 % BAS peak sys SL (AWMA) 17.8 % BI peak sys SL (AWMA) 17.4 % BL peak sys SL (AWMA) 21.9 % BP peak sys SL (AWMA) 14.3 % BS peak sys SL (AWMA) 16.7 % G peak SL(A2C) (AWMA) 20.3 % G peak SL(A4C) (AWMA) 17.8 % G peak SL(APLAX) (AWMA) 17.2 % G peak SL(Avg) (AWMA) 18.4 % MA peak sys SL (AWMA) 13.0 % MAS peak sys SL (AWMA) 19.7 % NM peak sys SL (AWMA) 21.4 % ML peak sys SL (AWMA) 15.8 % MP peak sys SL (AWMA) 11.7 % MS peak sys SL (AWMA) 21.8 % Report Signatures
--- OUTSIDE RECORDS SUMMARY | 2025-02-07 07:55 | XMS_ITS | Clinical Summary ---
Author Organization [facility] Vj amezquita Kimagnes Address [address] [facility] [place] [address] Care Team Providers Care Broach Grinder Name Role Phone Unavailable Primary Care Provider Unavailabl e Allergies Active Allergy Reactions Criticality Noted Date Comments Ketorolac Hypertension Medium 02/02/2025 Tachycardia Medications levothyroxine 175 mcg tablet Take 1 Tablet by mouth daily. 5 Active Zepbound 10 mg/0.5 mL Pen Injector 5 Active traMADoL (ULTRAM) 50 mg tablet 5 Active sertraline (ZOLOFT) 50 mg tablet Take 1 Tablet by mouth daily. 5 Active ondansetron (ZOFRAN) 8 mg Tablet Take 1 Tablet (8 mg) by mouth every 8 hours as needed for Nausea/Emesis. 30 Tablet 1 5 Active lidocaine-pril ocaine (EMLA) 2.5-2.5 % Cream Apply to affected area see administration instructions. 30 Gram 1 5 Active Active Problems No known active problems Encounters Date Type Department Care Team Description 02/05/2025 External Device Data STL ABSTRACTION Provider, Abstract 02/02/2025 2:00 PM BUCKLE INSPECTOR Office Visit [facility] H[facility]ology - [place] [address] [place] [address] Neal Mena MD Malignant neoplasm of upper-outer quadrant of left breast in female, estrogen receptor positive (CMS/HCC) (Primary Dx) from Last 3 Months Family History Medical History Relation Name Comments Diabetes Brother Hyperlipidemia Brother No Known Problems Child 1 Diabetes Child 2 No Known Problems Child 3 Diabetes Father Diabetes Mother Heart Disease Mother No Known Problems Sister 1 Diabetes Sister 2 Hyperlipidemia Sister 2 Relation Name Status Comments Brother Alive Child 1 Alive Child 2 Alive Child 3 Alive Father Mother Alive Sister 1 Alive Sister 2 Alive Social History Tobacco Use Types Packs/Day Years Used Date Smoking Tobacco: Never Smokeless Tobacco: Never Alcohol Use Standard Drinks/Week Comments Never 0 (1 standard drink = 0.6 oz pur e alcohol) Comments Unknown Sex and Gender Information Value Date Recorded Sex Assigned at Not on file Legal Sex Female 5:43 AM BUCKLE INSPECTOR Gender Identity Not on file Sexual Orientation Not on file Last Filed Vital Signs Vital Sign Reading Time Taken Comments Blood Pressure 124/82 02/02/2025 1:48 PM BUCKLE INSPECTOR Pulse 73 02/02/2025 1:46 PM BUCKLE INSPECTOR Temperature 36.3 C (97.4 F) 02/02/2025 1:46 PM BUCKLE INSPECTOR Respiratory Rate 16 02/02/2025 1:46 PM BUCKLE INSPECTOR Oxygen Saturation 97% 02/02/2025 1:46 PM BUCKLE INSPECTOR Inhaled Oxygen Concentration - - Weight 111.9 kg (246 lb 9.6 oz) 02/02/2025 1:46 PM BUCKLE INSPECTOR Height 162.6 cm (5' 4 ) 02/02/2025 1:46 PM BUCKLE INSPECTOR Body Mass Index 42.33 02/02/2025 1:46 PM BUCKLE INSPECTOR Plan of Treatment Health Maintenance Due Date Last Done Comments Pre-Diabetes and Diabetes Screening 1980 DTAP/TDAP/TD VACCINES (1 - Tdap) 1997 HEPATITIS B VACCINES (1 of 3 - 19+ 3-dose series) 07/1997 CERVICAL CANCER SCREENING 02/05/2008 BREAST CANCER SCREENING 2018 COLORECTAL SCREENING 2023 Colorectal Cancer Screening 2023 FIT-DNA Q 3 years 2023 FIT/FOBT Q 1 year 2023 Flex Sig/CT Colonography Q 5 years 2023 INFLUENZA VACCINE (#1) 2024 Insurance [employer] [facility] OPEN ACCESS [employer] [facility] OPEN ACCESS
--- OUTSIDE RECORDS SUMMARY | 2025-02-07 07:55 | XMS_ITS | Referral Summary ---
Author Organization [facility] Physician Office Building [address] [place] [address] Care Team Providers Care Infant Babysitter Name Role Phone Trey Shen MD Primary Care Provider Encounters Date Type Department Care Team Description 02/02/2025 Telephone [facility] [address] [place] [address] Medical Office Building 4, [address] [place] [address] Nirali Sands, LEAD QUALITY TECHNICIAN 12/05/2024 4:00 PM PEER SPECIALIST Telemedicine [facility] [address] [facility] [address] [place] [address] Carmela Siddiqui PA Encounter for weight loss counseling (Primary Dx); Metabolic syndrome; Obesity, Class III, BMI 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) (HCC); Acquired hypothyroidism; Vitamin D deficiency; Encounter for exercise counseling; Body mass index 45.0-49.9, adult (HCC) 11/15/2024 Telephone [facility] [address] [place] [address] Medical Office Building 4, [address] [place] [address] Carmela Siddiqui PA Med Refill [...] 12/05/2024 Assessment & Plan (12/05/2024 3:05 PM PEER SPECIALIST): I counseled the patient on exercise: Recommend [...] 12/05/2024 Assessment & Plan (12/05/2024 3:57 PM PEER SPECIALIST): Patient's highest BMI was 48.6 ; initial BMI was 46.8; this has improved to 41.07 through medical management Vitamin D deficiency 09/12/2024 Assessment & Plan (12/05/2024 3:06 PM PEER SPECIALIST): Continue vitamin-D supplementation Assessment & Plan (09/12/2024 4:10 PM CDT): start vitamin-D replacement 5,000IU daily Encounter for weight loss counseling 07/11/2024 Assessment & Plan (12/05/2024 3:05 PM PEER SPECIALIST): Reviewed importance of adequate protein intake. Reviewed [...] 07/11/2024 Assessment & Plan (12/05/2024 3:05 PM PEER SPECIALIST): Obesity is one of the leading risk [...] 03/21/2018 Assessment & Plan (12/05/2024 4:18 PM PEER SPECIALIST): Reviewed most recent labs. Continue low carb, [...] 03/21/2018 Assessment & Plan (12/05/2024 3:05 PM PEER SPECIALIST): Continue current dose of levothyroxine. Assessment & [...] on file Legal Sex Female 7:08 PM PEER SPECIALIST Gender Identity Not on file Sexual Orientation [...] (239 lb 6.4 oz) 12/05/2024 3:55 PM PEER SPECIALIST Height 162.6 cm (5' 4.02 ) 12/05/2024 3:55 PM CS T Body Mass Index 41.07 12/05/2024 3:55 PM PEER SPECIALIST Plan of Treatment Not on file Insurance [facility] [id number] Care Teams Infant Babysitter Relationship Specialty Start Date End Date Trey Shen MD [address] [facility] [address] [place] [address] PCP - General Family Medicine 03/10/18
--- OUTSIDE RECORDS SUMMARY | 2025-02-07 07:55 | XMS_ITS | Encounter Summary ---
Author Organization [employer] Address [address] [place] [address] Care Team Providers Care Forest Technician Name Role Phone Unavailable Primary Care Provider Unavailabl e Encounter Details Date Type Department Care Team (Late st Contact Info) Description 03/15/2009 Outpatient Historical [facility], Authorized P NO ADDRESS ON FILE Juan Carranza MD [address] [place] [address] Social History Tobacco Use Types Packs/Day Years Used Date Smoking Tobacco: Never Assessed Comments Unknown Sex and Gender Information Value Date Recorded Sex Assigned at Not on file Legal Sex Female 5:43 AM POWER BENDER OPERATOR Gender Identity Not on file Sexual Orientation Not on file documented as of this encounter Plan of Treatment Not on file documented as of this encounter Procedures Procedure Name Priority Date/Time Associated Diagnosis Comments CBC WITH DIFFERENTIAL Stat 03/15/2009 10:24 PM CDT C-REACTIVE PROTEIN Stat 03/15/2009 10 :24 PM CDT COMPREHENSIVE METABOLIC PANEL Stat 03/15/2009 10:24 PM CDT documented in this encounter Results * C-REACTIVE PROTEIN (03/15/2009 10:24 PM CDT) CRP 0.7 0.0 - 0.8 mg/dL [facility] Blood specimen (specimen) 03/15/2009 10:24 PM CDT 03/15/2009 10:40 PM CDT us Juan Carranza MD CHEMISTRY ORDERABLES Final Resu lt INTERFACE SYSTEM Refer to clinic/hospital department [facility] CLIA# [id number] [address] [place] [address] * (ABNORMAL) COMPREHENSIVE METABOLIC PANEL (03/15/2009 10:24 PM CDT) CREATININE 0.60 0.51 - 0.95 mg/dL [facility] SODIUM 137 135 - 145 mmol/L [facility] ALT 12 0 - 31 U/L [facility] ALKALINE PHOSPHATASE 46 35 - 104 U/L [facility] BILIRUBIN TOTAL 0.5 0.2 - 1.0 mg/dL [facility] CO2 21(L) 22 - 30 mmol/L [facility] TOTAL PROTEIN 6.1(L) 6.3 - 8.6 g/dL [facility] POTASSIUM 3.1(L) 3.5 - 4.9 mmol/L [facility] GLUCOSE 111(H) 65 - 99 mg/dL [facility] AST 17 12 - 32 U/L [facility] BUN 6 6 - 20 mg/dL [facility] CALCIUM 8.5(L) 8.6 - 10.2 mg/dL [facility] CHLORIDE 107 96 - 108 mmol/L [facility] ALBUMIN 3.5 3.4 - 4.8 g/dL [facility] GFR, >60 >=60 mL/min/1. 7 sq meter [facility] GFR >60 >=60 mL/min/1. 7 sq meter [facility] Comment: Modification of Diet in Renal Disease (MDRD) study formula. Estimated GFR rate interpretative information for both Americans and non- Americans is available on the [facility] Intranet at: [email or web address] Select: Lab Policies and Procedures Select: Reference Ranges - GFR Blood specimen (specimen) 03/15/2009 10:24 PM CDT 03/15/2009 10:40 PM CDT Juan Carranza MD CHEMISTRY ORDERABLES Edited INTERFACE SYSTEM Refer to clinic/hospital department [facility] CLIA# [id number] [address] [place], [place] [address] * (ABNORMAL) CBC WITH DIFFERENTIAL (03/15/2009 10:24 PM CDT) HEMOGLOBIN 10.4(L) 11.8 - 14.8 g/dL [facility] RDW 14.2 11.5 - 14.5 % [facility] WBC 10.7(H) 4.0 - 9.8 K/uL [facility] MCH 30.0 27.2 - 32.6 pg [facility] MPV 10.9 9.3 - 12.4 fL [facility] HEMATOCRIT 30.4(L) 35.5 - 44.0 % [facility] RDW-STDEV 44.5 37.1 - 48.7 fL [facility] RBC 3.47(L) 3.90 - 4.90 M/uL [facility] MCHC 34.2 31.5 - 35.5 % [facility] MCV 87.6 82.0 - 99.0 fL [facility] PLATELETS 229 140 - 350 K/uL [facility] LYMPHOCYTES 17 16 - 45 % [facility] LYMPHOCYTE ABSOLUTE 1.84 0.70 - 4.50 K/uL [facility] BASOPHILS 0 0 - 2 % [facility] BASOPHILS ABSOLUTE 0.01 0.00 - 0.20 K/uL [facility] MONOCYTES 7 3 - 13 % [facility] MONOCYTE ABSOLUTE 0.72 0.10 - 1.30 K/uL [facility] NEUTROPHILS 75(H) 45 - 70 % [facility] NEUTROPHIL ABSOLUTE 8.05(H) 1.90 - 7.00 K/uL [facility] EOSINOPHILS 1 0 - 7 % [facility] EOSINOPHIL ABSOLUTE 0.07 0.00 - 0.70 K/uL [facility] Blood specimen (specimen) 03/15/2009 10:24 PM CDT 03/15/2009 10:40 PM CDT us Juan Carranza MD HEMATOLOGY ORDERABLES Edited INTERFACE SYSTEM Refer to clinic/hospital department [facility] CLIA# [id number] [address] [place], [place] [address] documented in this encounter Visit Diagnoses Not on filedocumented in this encounter
--- OUTSIDE RECORDS SUMMARY | 2025-02-07 07:55 | XMS_ITS | Clinical Summary ---
Author Organization [facility] Physician Office Building [address] [place] [phone] Care Team Providers Care Zipper Trimmer Hand Name Role Phone Trey Shen MD Primary [...] 12/05/2024 Assessment & Plan (12/05/2024 3:05 PM PREPARATION PLANT SUPERVISOR): I counseled the patient on exercise: [...] 12/05/2024 Assessment & Plan (12/05/2024 3:57 PM PREPARATION PLANT SUPERVISOR): Patient's highest BMI was 48.6 ; initial BMI was 46.8; this has improved to 41.07 through medical management Vitamin D deficiency 09/12/2024 Assessment & Plan (12/05/2024 3:06 PM PREPARATION PLANT SUPERVISOR): Continue vitamin-D supplementation Assessment & Plan (09/12/2024 4:10 PM CDT): start vitamin-D replacement 5,000IU daily Encounter for weight loss counseling 07/11/2024 Assessment & Plan (12/05/2024 3:05 PM PREPARATION PLANT SUPERVISOR): Reviewed importance of adequate protein intake. [...] 07/11/2024 Assessment & Plan (12/05/2024 3:05 PM PREPARATION PLANT SUPERVISOR): Obesity is one of the leading [...] 03/21/2018 Assessment & Plan (12/05/2024 4:18 PM PREPARATION PLANT SUPERVISOR): Reviewed most recent labs. Continue low [...] 03/21/2018 Assessment & Plan (12/05/2024 3:05 PM PREPARATION PLANT SUPERVISOR): Continue current dose of levothyroxine. Assessment [...] Type Department Care Team Description 02/02/2025 Telephone [facility] Medical Office Building 4, [address] [place] [address] Nirali Sands CMA 12/05/2024 4:00 PM PREPARATION PLANT SUPERVISOR Telemedicine [facility] [address] [place] [address] [address] [place] [address] Carmela Siddiqui PA Encounter for weight loss counseling (Primary Dx); Metabolic syndrome; Obesity, Class III, BMI 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) ([facility]); Acquired hypothyroidism; Vitamin D deficiency; Encounter for exercise counseling; Body mass index 45.0-49.9, adult ([facility]) 11/15/2024 Telephone [facility] [address] [facility] Medical Office Building 4, [address] [place] [address] Carmela Siddiqui PA Med Refill [...] on file Legal Sex Female 7:08 PM PREPARATION PLANT SUPERVISOR Gender Identity Not on file Sexual [...] (239 lb 6.4 oz) 12/05/2024 3:55 PM PREPARATION PLANT SUPERVISOR Height 162.6 cm (5' 4.02 ) 12/05/2024 3:55 PM CS T Body Mass Index 41.07 12/05/2024 3:55 PM PREPARATION PLANT SUPERVISOR Plan of Treatment Health Maintenance Due Date Last Done Comments Breast Cancer Screening-Mammogram 1980 Cervical Cancer Screening 1980 Colon Cancer Screening-Colonoscopy 1980 Hepatitis C Screening 1980 DTaP/Tdap/Td Vaccine (1 - Tdap) 1989 Hepatitis B Screening 02/05/1996 Regular Well Visit/Exam 18-64 02/05/1996 Depression Screening 03/21/2019 03/21/2018 Covid-19 Vaccine (2 - 2023-2 5 season) 2024 03/07/2021 Influenza Vaccine (#1) 2024 Pneumococcal vaccine <65 Aged Out No longer eligible based on patient's age to complete this topic Insurance [facility] [id number] Care Teams Zipper Trimmer Hand Relationship Specialty Start Date End Date Trey Shen MD [address] [facility] [facility] [address] [place] [address] PCP - General Family Medicine 03/10/18
--- OUTSIDE RECORDS SUMMARY | 2025-02-07 07:55 | XMS_ITS | Data Portability ---
Author Organization [employer], Main Office Address [address] [place] [address] Assessment No assessment recorded. Plan of Treatment Reminders Order Date Submit Date Provider Last Modified By Organization Details Last Modified Time Details Appointments None recorded. Lab None recorded. Referral None recorded. Procedures None recorded. Surgeries None recorded. Imaging audiogram + tympanogram 2023 024 APOLONIA [facility], [address] [place] [address], [facility] [address], [place], [address], 4 05:55:22 Medication Orders None recorded. Patient TargetsNo targets recorded. Patient Instructions Encounter Date Encounter Id Patient Instructions Last Modified By Organization Details Last Modified Time 09/13/2024 [id number] alia-hallpike test* APOLONIA Not available 11/08/2024 04:26:56 continue use of meclizine as needed for vertigo symptoms. She will see PT for Merrill-Hallpike testing for possible BPPV. We will also obtain an audiogram and tympanogram for further testing. [email or web address] Not available 09/13/2024 16:04:48 Reason for Referral None Reported. Problems Name Problem SNOMED Code Status Onset Date Resolution Date Notes Provider Name and Address Organization Details Recorded Time Vertigo 296372418 Active 2023 Prince Calderon CMA null, [employer] [facility] 4 15:59:06 Sensorineural hearing loss 79902806 Active 2023 Prince Calderon CMA null, [employer] 4 16:00:48 Benign paroxysmal positional vertigo 553126412 Active 2023 HUGH Arrington [address] [facility], [facility] [address], [place], [address] , [place] [employer] [facility] 16:03:52 Problem Notes None recorded. Procedures Surgical History Date Name Laterality Status Provider Name and Address Organization Details Recorded Time 07/31/20 19 Tubal Ligation completed Prince Calderon CMA [facility] 09/13/2024 15:42:59 12/30/19 04 cholecystectomy completed Prince Calderon CMA [facility] 09/13/2024 15:42:31 Imaging Results None recorded. Procedure Notes None recorded. Medical Equipment None Reported. Allergies Allergen ID Allergen Name Allergen Category Reaction Reaction Severity Criticality Documentation Date Start Date Code Code System Note Provider Name and Address Organization Details Recorded Time 16388 Toradol medicatio n palpitati ons Not available Not available 09/12/2024 75656 RxNorm Lynn Bustamantencer [facility] 12:54:34 22344 Stadol medicatio n palpitati ons Not available Not available 09/13/2024 25319 RxNorm Prince Calderon CMA [facility] 15:38:10 Medications Name Sig Start [...] Address Organization Details Last Updated DateTime 09/13/2024 479155.2 g 98 [degF] 45 kg/m2 162.56 cm Prince Calderon CMA [employer] 09/13/2024 15:37:32 Social History Question Answer Notes LastModified by Organizat ion Details LastModified Time Tobacco Smoking Status Never Smoker Lynnxavier Bustamanterhoda [facility]ner [facility] [facility] 09/12/2024 12:56:45 What Is Your Level Of Alcohol Consumption? None [email or web address] Information not available 09/12/2024 What Is Your Level Of Caffeine Consumption? Occasional Coffee [email or web address] Information not available 09/13/2024 Sex: Unknown Functional Status None recorded. Mental Status None recorded. Family History Relationship Description Onset Age of this Age Resolved Age Notes LastModified by Organization Details LastModified Time Father Diabetes mellitus [email or web address] Not available 2023 15:43:22 Father Family history of stroke [email or web address] Not available 2023 15:43:39 Mother Heart disease Not available 2023 15:43:46 Medical History Condition [...] HAVE YOU BEEN HOSPITALIZED OR SEEN IN [facility] IN THE PAST YEAR [...] SNOMED-CT Code Diagnosis ICD10 Code Diagnosis Note [id number] HUGH Arrington [facility] [address] [place] [address] 09/13/2024 15:26:45 09/13/2024 16:05:18 Benign paroxysmal positional vertigo 143406637 H81.10 Health Concerns Section Related Observation LastModified by Organization Detai ls LastModified Time None Recorded Concern Status LastModified by Organization Details LastModified Time None Recorded Advance Directives Directive None Recorded Payers Encounter Date Sequence Insurance Name Policy Number Policy Castro Covered Member ID Castro Member ID Guarantor Name 09/13/2024 1 [employer] Austin Dong [id number] Austin Dong Notes Date Note Type Note [...] also notes if she moves her head [id number] quickly this can also elicit symptoms. She also reports that when her spouse was watching football on the television the other day, this too was causing vertigo like symptoms. Bettie Ibarra, ONLINE ADVERTISING MANAGER [address] [facility], [place] [address], [place], [address], [facility] 09/13/2024 16:04:52 OBGyn Episode No OBEpisode recorded.
--- OUTSIDE RECORDS SUMMARY | 2025-02-07 07:56 | XMS_ITS | Data Portability ---
Author Organization [facility], [place] Address [address] [place] [address] Care Team Providers Care Human Resources Operations Director Name Role Phone STEFAN MCLAUGHLIN Primary Care [...] mammogram due to mass found in right [email or web address] Not available 07/30/2021 10:56:08 02/17/2024 02/17/2024 Annual [...] Imaging MAMMO, screening, digital, bilateral 2023 024 [facility], [address], [address], [place], [address], 05:01:18 US, pelvis 2020 021 [email or web address] [place], [address], [place], [address], 07:22:39 US, transvagina l 2020 021 [email or web address] [place], [address], [place], [address], 07:22:39 US, pelvis, complete 2020 [email or web address] Not [...] as clini tyrell mullins nted. Not Available [facility] (Lab) [address], [place], [address], 08/03/2021 19:24:02 02/17/20 24 02/17/2024 IMAGE GUIDE [...] test with an inher ent false negat lnio rate. Liqui d-bas ed sampl ing may [...] as clini tyrell warra nted. Not Available [facility] (Lab) [address], [place], [address], 02/22/2024 15:56:44 08/01/2008/01/2021 US, trans quan al No observ ation record ed. [facility] [address], [place], [address], 08/05/2021 17:01:44 08/01/20 21 08/01/2021 , earlene amezquita No observ ation record ed. [facility] [address], [place], [address], 08/01/2021 17:08:35 08/01/2008/01/2021 US, emanuel glass al No observ ation record ed. [facility] [address], [place], [address], 08/01/2021 17:08:44 Result Notes None recorded. Problems Name Problem SNOMED Code Status Onset Date Resolution Date Notes Provider Name and Address Organization Details Recorded Time Pregnanc y test negative 150763635 Completed 201707/29/2021 Encounte r for pregnanc y test, result negative ;Practic e ID: 0001 Kari sumner [facility] 17:16:18 Finding of menstrua l bleeding Completed 201707/29/2021 Excessiv e and frequent menstrua tion with regular cycle;Pr actice ID: 0001 Kari Najera [facility] 17:15:23 Finding of pattern of menstrua l cycle 004047785 Completed 201707/29/2021 Excessiv e and frequent menstrua tion with irregula r cycle;Pr actice ID: 0001 Kari sumner [facility] 17:15:25 Finding of regulari ty of menstrua l cycle Completed 201707/29/2021 Irregula r menstrua tion, unspecif ied;Prac julian ID: 0001 Kari Najera [facility] 17:15:27 Female genitali a finding Completed 201707/29/2021 Foreign body in vulva and vagina, sequela; Practice ID: 0001 Kari sumner [facility] 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 17:16:11 Pain in female genitali a Completed 201707/29/2021 Dysmenor xander, unspecif ied;Prac julian ID: 0001 Kari sumner [facility] 08/31/202 1 17:15:19 Steriliz ation procedur e Completed 201707/29/2021 Encounte r for steriliz ation;Pr actice ID: 0001 Kari sumner [facility] 17:16:36 Procedur e on genitour inary system Completed 201707/29/2021 Encounte r for surgical aftcr followin g surgery on the sys;Prac julian ID: 0001 Kari sumner [facility] 17:16:20 Postoper ative care Completed 201707/29/2021 Encounte r for surgical aftcr followin g surgery on the sys;Prac julian ID: 0001 Kari sumner [facility] 17:16:15 Urinary tract infectio us disease 11288634 Completed 201807/29/2021 Urinary tract infectio n, site not specifie d;Practi ce ID: 0001 [facility] Concept Completed 201807/29/2021 Encntr for infant caregiver exam (general ) (routine ) w/o abn findings ;Practic e ID: 0001 Kari sumner [facility] 17:16:32 Screenin g for malignan t neoplasm of rectum Completed 201807/29/2021 Encounte r for screenin g for malignan t neoplasm of rectum;P ractice ID: 0001 Kari sumner [facility] 17:16:28 Right lower quadrant pain 081375454 Completed 201607/29/2021 Right lower quadrant pain;Pra ctice ID: 0001 Kari sumner [facility] 17:16:24 Pelvic and perineal pain 538193967 Completed 201607/29/2021 Pelvic and perineal pain;Pra ctice ID: 0001 Kari sumner, [facility] 17:16:12 Hypothyr oidism 63273096 Completed 201607/29/2021 Hypothyr oidism, unspecif ied;Prac julian ID: 0001 Kari Naejra [facility], [facility] 17:15:57 Depressi ve disorder 49518351 Completed 201607/29/2021 Major depressi ve disorder , single episode, unspecif ied;Prac julian ID: 0001 Kari Najera [facility] 17:15:09 Acute vaginiti s 01540227 Completed 201607/29/2021 Acute vaginiti s;Practi ce ID: 0001 Kari Najera [facility] 17:14:[address] Concept Completed 201607/29/2021 Encntr for general adult medical exam w/o abnormal findings ;Recorde d Elsewher e: No Locat ion: [facility] S ource: EHR Explosive Ordnance Manager luz: N Practi ce ID: 0001 Petr lable Time: 09:30:00 AM Kari Najera [facility] 17:16:30 Clinical finding Completed 201507/29/2021 Presence of (intraut erine) contrace ptive device;R ecorded Elsewher e: No Locat ion: [facility] S ource: EHR Explosive Ordnance Manager luz: N Practi ce ID: 0001 Petr lable Time: 12:45:00 PM Kari Najera [facility] 17:14:38 Evaluati on finding Completed 201807/29/2021 Hematuri a, unspecif ied;Toni rded Elsewher e: No [facility]at ion: [facility] Vicentati ce ID: 0001 Petr lable Time: 08:15:00 AM Kari sumner, [facility] 17:15:14 Insertio n of intraute rine contrace ptive device Completed 201507/29/2021 Encounte r for insertio n of intraute rine contrace ptive device;R ecorded Elsewher e: No Locat ion: [facility] N Practi ce ID: 0001 Petr lable Time: 12:45:00 PM Kari sumner, [facility] 17:16:02 Increase d frequenc y of urinatio n [id number] Completed 201307/29/2021 Urinary frequenc y;Record ed Elsewher e: No Locat ion: [facility] N Vicentati ce ID: 0001 Petr lable Time: 02:00:00 PM Kari sumner, [facility] 17:15:59 Lesion of ovary Completed 201607/29/2021 Other ovarian cyst, right side;Rec orded Elsewher e: No Locat ion: [facility] N Vicentati ce ID: 0001 Petr lable Time: 01:30:00 PM Kari sumner [facility] 17:14:55 Clinical finding Completed 201607/29/2021 Obesity, unspecif ied;Toni rded Elsewher e: No Locat ion: [facility] N Practi ce ID: 0001 Petr lable Time: 01:45:00 PM Kari sumner [facility] 17:15:29 Speciali zed medical examinat ion Completed 201207/29/2021 Gynecolo gical Examinat ion;Toni rded Elsewher e: No Locat ion: [facility] S ource: EHR Explosive Ordnance Manager luz: N Practi ce ID: 0001 Petr lable Time: 03:00:00 PM Kari Najera taisha, [facility] 17:16:34 Speciali zed medical examinat ion Completed 201108/15/2012 Gynecolo gical Examinat ion;Toni rded Elsewher e: No Locat ion: [facility] S ource: EHR Explosive Ordnance Manager luz: N Practi ce ID: 0001 Petr lable Time: 11:30:00 AM Krai Najera [facility] 17:16:34 Dysfunct ional uterine bleeding Completed 201008/15/2012 Other disorder s of menstrua tion and other abnormal bleeding from female genital tract;Re corded Elsewher e: No Locat ion: [facility] N Practi ce ID: 0001 Petr lable Time: 03:30:00 PM Kari Najera [facility] 17:15:12 Breast lump [id number] Completed 201307/29/2021 Breast Lump Or Mass;Rec orded Elsewher e: No Locat ion: [facility]: [facility] Y Vicentati ce ID: 0001 Petr lable Time: 04:30:00 PM Kari Najera [facility] 17:14:35 Removal of intraute rine device Completed 201607/29/2021 Encounte r for removal of intraute rine contrace ptive device;R ecorded Elsewher e: No Locat ion: [facility] N Practi ce ID: 0001 Petr lable Time: 08:45:00 AM Kari sumner [facility] 17:16:22 Adult health examinat ion Completed 201307/29/2021 ROUTINE MEDICAL EXAM;Rec orded Elsewher e: No Locat ion: [facility] S ource: EHR Explosive Ordnance Manager luz: N Practi ce ID: 0001 Petr lable Time: 02:00:00 PM Kari sumner [facility] 17:14:08 Cyst of ovary Completed 201607/29/2021 Unspecif ied ovarian cyst, unspecif ied side;Rec orded Elsewher e: No Locat ion: [facility] S ource: EHR Explosive Ordnance Manager luz: N Practi ce ID: 0001 Petr lable Time: 01:30:00 PM Kari sumner [facility] 17:14:40 Dysfunct ional uterine bleeding Completed 201007/29/2021 DUB;Prac julian ID: 0001 Kari Najera [facility], [facility] 17:15:12 Nausea 800467205 Completed 201007/29/2021 Nausea alone;Pr actice ID: 0001 Kari Najera [facility] 17:16:08 Screenin g for malignan t neoplasm of cervix Completed 201107/29/2021 Pap Smear;Pr actice ID: 0001 Kari Najera [facility] 17:16:26 Malaise and fatigue 086315731 Completed 201207/29/2021 Fatigue And Malaise; Practice ID: 0001 Kari Najera [facility] 17:16:04 Female genital organ symptoms 448245495 Completed 201207/29/2021 Unspecif ied symptom associat ed with female genital organs;P ractice ID: 0001 Kari sumner [facility] 17:15:17 Microsco pic hematuri a [id number] Completed 201507/29/2021 Other microsco pic hematuri a;Practi ce ID: 0001 Kari Contrerastz [facility], [facility] 17:16:06 Surveill ance of contrace ption Completed 201507/29/2021 Encounte r for surveill ance of contrace ptives, unspecif ied;Prac julian ID: 0001 Kari Najera [facility] 17:16:38 Problem Notes None recorded. Procedures Surgical History Date Name Laterality Status Provider Name and Address Organization Details Recorded Time 07/30/20 21 Date of Last Pap Smear completed [facility] 07/30/2021 09:55:09 07/30/20 18 Tubal Ligation completed [facility] 07/29/2021 17:34:29 02/29/20 18 endometrial biopsy completed [facility] 07/29/2021 17:33:40 08/15/20 12 Breast Biopsy completed [facility] 07/29/2021 17:32:59 12/30/19 03 cholecystectomy completed [facility] 07/29/2021 17:34:42 11/29/19 02 Colposcopy completed [facility] 07/29/2021 17:20:03 Imaging Results Imaging Date Name Status LastModified by Organization Details LastModified Time 08/01/2021 US, transvaginal completed [address], [place], [address], 08/05/2021 17:01:44 08/01/2021 US, pelvis completed [address], [place], [address], 08/01/2021 17:08:35 08/01/2021 , transvaginal completed jozef [address], [place], [address], 08/01/2021 17:08:44 Procedure Notes None recorded. Medical Equipment None Reported. Allergies Allergen ID Allergen Name Allergen Category Reaction Reaction Severity Criticality Documentation Date Start Date Code Code System Note Provider Name and Address Organization Details Recorded Time 94516 ketorolac medicatio n Not available Not available Not available 07/30/2021 16145 RxNorm Kari Najera [facility] 09:54:01 Medications Name Sig Start [...] Prescrib ed Elsewher e: Yes Loca tion: [facility] odify By: efraín gee DateTime : 10/29/20 11 03:30:00 PM Not Available Not Available Not Available doxycycli ne hyclate 50 mg capsule take 1 capsule by oral route every 12 hours 02/07 completed Prescrib ed Elsewher e: Yes Loca tion: [facility] odify By: mike armendariz DateTime : 04/13/20 16 01:00:00 PM Not Available Not Available Not Available Pyridium 200 mg tablet take 1 tablet by oral route 3 times every day after meals 03/14/ 2019 09/01 /2021 completed Prescrib ed Elsewher e: No Locat ion: [facility] odify By: lbillhar tz Encou nter [...] Prescrib ed Elsewher e: No Locat ion: [facility] odify By: mike jianguntjessica DateTime : 12/17/19 02:43:41 PM Not Available Not Available Not Available Soma 350 mg tablet take 1 tablet by oral route 3 times every day and at bedtime 04/13 completed Prescrib ed Elsewher e: No Locat ion: [facility] odify By: daryl delgado DateTime : 12/26/19 [...] Prescrib ed Elsewher e: No Locat ion: [facility] odify By: andrew Alvarez ncounter DateTime : 02/14/20 09:38:29 AM Not Available Not Available Not Available nystatin 100,000 unit/gram topical cream 02/16 completed Not Available Not Available Not Available Synthroid 88 mcg tablet take 1 tablet by oral route every day 04/13 completed Prescrib ed Elsewher e: Yes Loca tion: [facility] odify By: daryl delgado DateTime : 09/20/20 14 02:00:00 PM Not Available Not Available Not Available Synthroid 50 mcg tablet take 1 tablet by oral route every day 02/16 completed Prescrib ed Elsewher e: Yes Loca tion: [facility] odify By: mike armendariz DateTime : 04/20/20 16 03:15:00 PM Not Available Not Available Not Available Adipex-P 37.5 mg capsule take 1 capsule by oral route every day before breakfas t 09/20 completed Prescrib ed Elsewher e: Yes Loca tion: [facility] odify By: efraín gee DateTime : 03/15/20 14 04:30:00 PM Not Available Not Available Not Available Vitamin D2 1,250 mcg (50,000 unit) capsule take 1 capsule (31736OD ITS) by oral route every week 03/15 completed Prescrib ed Elsewher e: No Locat ion: [facility] odify By: isabel jianguntjessica DateTime : [...] ed Elsewher e: No Locat ion: [facility] odify By: andrew armendariz DateTime : 02/10/20 19 08:15:00 AM Not Available Not Available Not Available Wellbutri n XL 300 mg 24 hr tablet, extended release take 1 tablet by oral route every day 02/07 completed Prescrib ed Elsewher e: No Locat ion: [facility] odify By: mike armendariz DateTime : [...] Prescrib ed Elsewher e: No Locat ion: [facility] odify By: mike Alvarez ncounter DateTime : 02/08/20 18 01:45:00 PM Not Available Not Available Not Available Lo Loestrin Fe 1 mg-10 mcg (24)/10 mcg (2) tablet take 1 tablet by oral route every day 01/04 completed Prescrib ed Elsewher e: No Locat ion: [facility] odify By: mike Alvarez ncounter DateTime : [...] Updated DateTime 07/30/2021 161.93 cm 46.7 kg/m2 535012.9 4 g 127 mm[Hg] 84 mm[Hg] Kari Najera [facility] 09:53:20 Date Recorded Body height Body mass index (BMI) Body weight Systolic blood pressure Diastolic blood pressure Provider Name and Address Organization Details Last Updated DateTime 02/17/2024 160.02 cm 45.5 kg/m2 500799.2 4 g 136 mm[Hg] 91 mm[Hg] Sabi Roca [facility] 4 10:12:21 Social History Question Answer Notes LastModified by Organizat ion Details LastModified Time Tobacco Smoking Status Never Smoker Kari sumner, [facility] 07/30/2021 09:56:22 What Is Your Level Of Alcohol Consumption? Occasional Information not available 07/30/2021 If You Are , What Was Your Level Of Alcohol Consumption Prior To ? None [email or web address] Information not available 07/30/2021 Are You Blind Or Do You Have Difficulty Seeing? No [email or web address] Information n ot available 07/30/2021 What Is Your Level Of Caffeine Consumption? Occasional [email or web address] Information not available 07/30/2021 In The 14 Days Before Symptom Onset, Have You Had Close Contact With A Laboratory-confirm ed COVID-19 While That Case Was Ill? No [email or web address] Information n ot available 07/30/2021 In The 14 Days Before Symptom Onset, Have You Had Close Contact With A Person Who Is Under Investigation For COVID-19 While That Person Was Ill? No [email or web address] Information not available 07/30/2021 Have You Been To An Area Known To Be High Risk For COVID-19? No [email or web address] Information not available 07/30/2021 Are You Deaf Or Do You Have Serious Difficulty Hearing? No [email or web address] Information not available 07/30/2021 What Type Of Diet Are You Following? REGULAR [email or web address] Information n ot available 07/30/2021 Do You Use Your Seat Belt Or Car Seat Routinely? Yes [email or web address] Information not available 07/30/2021 Do You Have Smoke And Carbon Monoxide Detectors In Your Home? Yes [email or web address] Information not available 07/30/2021 Do You Feel Stressed (tense, Restless, Nervous, Or Anxious, Or Unable To Sleep At Night)? [id number] Information not available 07/30/2021 Do You Use Any Illicit Or Recreational Drugs? No [email or web address] Information not available 07/30/2021 Do You Use Sunscreen Routinely? Yes [email or web address] Information not available 07/30/2021 Has Tobacco Cessation Counseling Been Provided? No Information not available 07/30/2021 Do You Or Have You Ever Used Any Other Forms Of Tobacco Or Nicotine? No [email or web address] Information not available 07/30/2021 Sex: Unknown Functional Status Question Answer Note LastModified by Organizat ion Details LastModified Time Are you able to walk? YESWOREST [email or web address] Information not available 07/30/2021 What is your exercise level? Occasional [email or web address] Information not available 07/30/2021 Mental Status None recorded. Family History Relationship Description Onset Age of this Age Resolved Age Notes LastModified by Organization Details LastModified Time Maternal Aunt Malignant tumor of colon Not available 07/29 17:29:59 Maternal Aunt Heart disease [email or web address] Not available 07/29 17:30:47 Paternal Grandmother Malignant tumor of breast [email or web address] Not available 07/29 17:30:21 Maternal Grandmother Malignant tumor of breast [email or web address] Not available 07/29 17:30:21 Maternal Grandmother Malignant neoplasm of liver [email or web address] Not available 07/29 17:32:14 Mother Heart disease Not available 07/29 17:30:47 Mother Hypertensive disorder Not available 07/29 17:31:17 Maternal Uncle Heart disease [email or web address] Not available 07/29 17:30:47 Sister Hypertensive disorder [email or web address] Not available 07/29 17:31:17 Sister Diabetes mellitus [email or web address] Not available 07/29 17:31:31 Father Diabetes mellitus [email or web address] Not available 07/29 17:31:42 Father Hypertensive disorder [email or web address] Not available 07/29 17:32:24 Notes:Father: Diabetes melli tus, Hypertension Maternal aunt: Cancer, colon Maternal aunts x 3: heart disease Maternal grandfather: Hypertension, cancer, liver Maternal grandmother: Cancer, breast Maternal uncle: heart disease Mother: Hypertension, heart disease Paternal grandfather: Diabetes mellitus Paternal grandmother: Cancer, breast Sister: Hypertension, Diabetes mellitus Medical History Condition Response Allergies (Food, seasonal, environmental ) N Other Y Drug/Latex Allergies/Reactions Y Breast Cancer N Blood Transfusion N Lung Disease N Dermatologic Disorders N Defects or Inherited Disease N Breast Problem Y Gestational Diabetes N Hematologic disorders N Anesthesia Complications N History of STI Y Deep Vein Thrombosis N Polycystic ovary syndrome N Anxiety Disorder Y Autoimmune disease N Arthritis N Polyps N Infertility N History of abnormal pap Y Acid Reflux (GERD) Y Cancer N Varicosities N Stroke N [...] SNOMED-CT Code Diagnosis ICD10 Code Diagnosis Note [id number] Solange Ye [facility] [place] [address] [address] 07/30/2021 09:41:09 07/30/2021 15:54:38 Gynecologic examination 81613015 Z01.419 Dyspareunia 66538032 N94 .10 f/u pending [id number] [facility] [address] [address] 08/01/2021 16:05:54 08/01/2021 16:54:26 Dyspareunia 84625494 N94.10 [id number] ALCIDES Isaac [place] [address] [address] 02/17/2024 10:04:57 02/17/2024 10:41:21 Gynecologic examination 81389383 Z01.419 WWEBC - BTLpap updateddec lined STI screenmamm ogram order givencolon oscopy UTDroutine labs/PCPge netic testing discussed/ fam hx reviewedBP precaution s reviewedRT C in 1 yr or sooner if needed Suggested Calcium with Vitamin D daily. Patient advised to get an annual flu shot in the fall and she could obtain at [facility] or [facility] care clinic. Also to obtain TDap vaccinatio [...] email. Screening for malignant neoplasm of breast 685771685 Z12.39 Health Concerns Section Related Observation LastModified by Organization Detai ls LastModified Time None Recorded Concern Status LastModified by Organization Details LastModified Time None Recorded Advance Directives Directive None Recorded Payers Encounter Date Sequence Insurance Name Policy Number Policy Castro Covered Member ID Castro Member ID Guarantor Name 07/30/2021 1 [employer] - DOS PRIOR TO 21 - [facility] BENEFITS PL[facility] [id number] Austin Mckeon [id number] OI Austin Dong 08/01/2021 1 [employer] - DOS PRIOR TO 21 - [facility] BENEFITS [facility] [id number] Austin Mckeon [id number] OI Austin Dong 02/17/2024 1 [employer] - [facility] BENEF[employer] [facility]AN [id number] Austin Dong [id number] JC Dong Notes Date Note Type Note [...] again Solange Ye CNM [address], [place], [address], [facility] 07/30/2021 10:58:55 02/17/2024 text/html Annual GYNReport [...] to repeat ALCIDES Isaac [address], [place], [address], [facility] 02/17/2024 10:36:51 OBGyn Episode Ob Episode Information Episode Created Date Number of Fetuses Patient Bloodtype Patient rh Status Prepregnancy Weight lbs Domestic Partner Domestic Partner Phone Father Name Credit Director Status 07/29/20 21 1 CLOSED Fetus Data First Name Last Name Admitted to NICU Weight (g) Sex Living Outcome Pediatric Complications Fetus ID Race Codes Race Delivery Type , Induced [id number] Solomon Calculation Initial Solomon Date Initial Exam [...] Domestic Partner Domestic Partner Phone Father Name Credit Director Status 07/29/20 21 1 CLOSED Fetus Data First Name Last Name Admitted to NICU Weight (g) Sex Living Outcome Pediatric Complications Fetus ID Race Codes Race Delivery Type 3373.36 3704 F Full Term 48311 Vaginal Delivery Solomon Calculation Initial Solomon Date [...] Domestic Partner Domestic Partner Phone Father Name Credit Director Status 07/29/20 21 1 CLOSED Fetus Data First Name Last Name Admitted to NICU Weight (g) Sex Living Outcome Pediatric Complications Fetus ID Race Codes Race Delivery Type 3770.25 6704 M Full Term 36225 Vaginal Delivery Solomon Calculation Initial Solomon Date [...] Domestic Partner Domestic Partner Phone Father Name Credit Director Status 07/29/20 21 1 CLOSED Fetus Data First Name Last Name Admitted to NICU Weight (g) Sex Living Outcome Pediatric Complications Fetus ID Race Codes Race Delivery Type , Spontane ous 47084 Solomon Calculation Initial Solomon Date Initial Exam [...] Domestic Partner Domestic Partner Phone Father Name Credit Director Status 07/29/20 21 1 CLOSED Fetus Data First Name Last Name Admitted to NICU Weight (g) Sex Living Outcome Pediatric Complications Fetus ID Race Codes Race Delivery Type 4110.45 0704 M Full Term 15871 Vaginal Delivery Solomon Calculation Initial Solomon Date [...] Domestic Partner Domestic Partner Phone Father Name Credit Director Status 07/29/20 21 1 CLOSED Fetus Data First Name Last Name Admitted to NICU Weight (g) Sex Living Outcome Pediatric Complications Fetus ID Race Codes Race Delivery Type , Spontane ous [id number] Solomon Calculation Initial Solomon Date Initial Exam [...]
== END 2025-02-07 07:50 | disposition home or self-care (01) ==
LOC: ANHCARD 07:50
PROVIDERS: Visit Provider Internal Medicine Hematology & Oncology
DX: C50.412 Malignant neoplasm of upper-outer quadrant of left female breast (principal); Z17.0 Estrogen receptor positive status [ER+]
CPT/HCPCS: 93306

== ENCOUNTER 2025-02-09 14:16 | Outpatient (CLI) | payer OTHER, SELFPAY ==
--- NOTE | ~2025-02-09 | CT_ITS ---
Clinical Indication: Breast cancer CT Scan of the Chest, Abdomen, and Pelvis with Contrast: Technique: Contiguous sections were acquired throughout the chest, abdomen, and pelvis after intraven ous administration of 100 cc of Omnipaque 350. Dose reduction technique was used on this scan by uti lizing automated exposure control and iterative reconstruction technique. The dose-length product (DL P) was 1432.64 mGy-cm. Findings: There is a probable 1.8 cm irregular mass in the superior left breast (axial image 10). There is left axillary lymphadenopathy, with largest node measuring 4.1 x 2.1 cm (axial image 20). Additional enla rged node present just anterosuperior to this (axial image 10). No right axillary lymphadenopathy. No mediastinal or hilar lymphadenopathy. The mediastinal soft tissues appear normal. No central pulmo nary embolus seen. No aortic aneurysm or dissection seen. There is no evidence of pleural or pericardial effusion. The lungs are clear. No pulmonary nodules or infiltrates are noted. The liver, spleen, pancreas, adrenals and kidneys are within normal limits. Cholecystectomy clips are present. No evidence of aortic aneurysm. No lymphadenopathy. No bowel obstruction or bowel wall thickening. There is no evidence to suggest acute appendicitis. Urinary bladder is unremarkable. No pelvic mass seen. No ascites. Impression: 1.8 cm irregular superior left breast mass. This is suspicious for malignancy especially given provid ed history. Left axillary lymphadenopathy, compatible with isiah metastatic disease. No evidence of metastatic disease in the abdomen or pelvis. Reviewed, dictated and finalized at [facility]. Impression: 1.8 cm irregular superior left breast mass. This is suspicious for malignancy e specially given provided history. Left axillary lymphadenopathy, compatible with isiah metastatic disease. No evidence of metastatic disease in the abdomen or pelvis.
--- OUTSIDE RECORDS SUMMARY | 2025-02-09 14:23 | XMS_ITS | Encounter Summary ---
Author Organization [email or web address] Address 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 Gender Identity Not on file Sexual Orientation [...] CDT) CRP 0.7 0.0 - 0.8 mg/dL [facility] Blood specimen (specimen) 03/15/2009 10:24 PM CDT 03/15/2009 10:40 PM CDT us Juan Carranza MD CHEMISTRY ORDERABLES Final Resu lt INTERFACE SYSTEM Refer to clinic/hospital department [facility] CLIA# [id number] [address] [place] [address] * (ABNORMAL) COMPREHENSIVE METABOLIC PANEL (03/15/2009 10:24 PM CDT) CREATININE 0.60 0.51 - 0.95 mg/dL [facility] SODIUM 137 135 - 145 mmol/L [facility] ALT 12 0 - 31 U/L [facility] ALKALINE PHOSPHATASE 46 35 - 104 U/L [facility] BILIRUBIN TOTAL 0.5 0.2 - 1.0 mg/dL [facility] CO2 21(L) 22 - 30 mmol/L [facility] TOTAL PROTEIN 6.1(L) 6.3 - 8.6 g/dL [facility] POTASSIUM 3.1(L) 3.5 - 4.9 mmol/L [facility] GLUCOSE 111(H) 65 - 99 mg/dL [facility] AST 17 12 - 32 U/L [facility] BUN 6 6 - 20 mg/dL [facility] CALCIUM 8.5(L) 8.6 - 10.2 mg/dL [facility] CHLORIDE 107 96 - 108 mmol/L [facility] ALBUMIN 3.5 3.4 - 4.8 g/dL [facility] GFR, >60 >=60 mL/min/1. 7 sq meter [facility] GFR >60 >=60 mL/min/1. 7 sq meter [facility] Comment: Modification of Diet in Renal Disease (MDRD) study formula. Estimated GFR rate interpretative information for both Americans and non- Americans is available on the [facility] Intranet at: [email or web address] Select: Lab Policies and Procedures Select: Reference Ranges - GFR Blood specimen (specimen) 03/15/2009 10:24 PM CDT 03/15/2009 10:40 PM CDT Juan Carranza MD CHEMISTRY ORDERABLES Edited INTERFACE SYSTEM Refer to clinic/hospital department [facility] CLIA# [id number] [address] [place], [place] [address] * (ABNORMAL) CBC WITH DIFFERENTIAL (03/15/2009 10:24 PM CDT) HEMOGLOBIN 10.4(L) 11.8 - 14.8 g/dL [facility] RDW 14.2 11.5 - 14.5 % [facility] WBC 10.7(H) 4.0 - 9.8 K/uL [facility] MCH 30.0 27.2 - 32.6 pg [facility] MPV 10.9 9.3 - 12.4 fL [facility] HEMATOCRIT 30.4(L) 35.5 - 44.0 % [facility] RDW-STDEV 44.5 37.1 - 48.7 fL [facility] RBC 3.47(L) 3.90 - 4.90 M/uL [facility] MCHC 34.2 31.5 - 35.5 % [facility] MCV 87.6 82.0 - 99.0 fL [facility] PLATELETS 229 140 - 350 K/uL [facility] LYMPHOCYTES 17 16 - 45 % [facility] LYMPHOC[facility]TE ABSOLUTE 1.84 0.70 - 4.50 K/uL [facility] BASOPHILS 0 0 - 2 % [facility] BASOPHILS ABSOLUTE 0.01 0.00 - 0.20 K/uL [facility] MONOCYTES 7 3 - 13 % [facility] MONOCYTE ABSOLUTE 0.72 0.10 - 1.30 K/uL [facility] NEUTROPHILS 75(H) 45 - 70 % [facility] NEUTROPHIL ABSOLUTE 8.05(H) 1.90 - 7.00 K/uL [facility] EOSINOPHILS 1 0 - 7 % [facility] EOSINOPHIL ABSOLUTE 0.07 0.00 - 0.70 K/uL [facility] Blood specimen (specimen) 03/15/2009 10:24 PM CDT 03/15/2009 10:40 PM CDT us Juan Carranza MD HEMATOLOGY ORDERABLES Edited INTERFACE SYSTEM Refer to clinic/hospital department [facility] CLIA# [id number] [address] [place], [place] [address] documented in this encounter Visit Diagnoses Not on filedocumented in this encounter
--- OUTSIDE RECORDS SUMMARY | 2025-02-09 14:23 | XMS_ITS | Referral Summary ---
Author Organization [facility] Physician Office Building [address] [place] [address] Care Team Providers Care Whizzer Operator Name Role Phone Trey Shen MD Primary Care Provider Encounters Date Type Department Care Team Description 02/02/2025 Telephone [facility] [address] [place] [address] Medical Office Building 4, [address] [place] [phone] Nirali Sands, SODA DISPENSER 12/05/2024 4:00 PM SUPERINTENDENT WAREHOUSE Telemedicine [facility] 1 [facility] [address] [place] [address] Carmela Siddiqui PA Encounter for weight loss counseling (Primary Dx); Metabolic syndrome; Obesity, Class III, BMI 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) (HCC); Acquired hypothyroidism; Vitamin D deficiency; Encounter for exercise counseling; Body mass index 45.0-49.9, adult (HCC) 11/15/2024 Telephone [facility] [address] [place] [address] Medical Office Building 4, [address] [place] [address] Carmela Siddiqui PA Med Refill [...] 12/05/2024 Assessment & Plan (12/05/2024 3:05 PM SUPERINTENDENT WAREHOUSE): I counseled the patient on exercise: Recommend [...] 12/05/2024 Assessment & Plan (12/05/2024 3:57 PM SUPERINTENDENT WAREHOUSE): Patient's highest BMI was 48.6 ; initial BMI was 46.8; this has improved to 41.07 through medical management Vitamin D deficiency 09/12/2024 Assessment & Plan (12/05/2024 3:06 PM SUPERINTENDENT WAREHOUSE): Continue vitamin-D supplementation Assessment & Plan (09/12/2024 4:10 PM CDT): start vitamin-D replacement 5,000IU daily Encounter for weight loss counseling 07/11/2024 Assessment & Plan (12/05/2024 3:05 PM SUPERINTENDENT WAREHOUSE): Reviewed importance of adequate protein intake. Reviewed [...] 07/11/2024 Assessment & Plan (12/05/2024 3:05 PM SUPERINTENDENT WAREHOUSE): Obesity is one of the leading risk [...] 03/21/2018 Assessment & Plan (12/05/2024 4:18 PM SUPERINTENDENT WAREHOUSE): Reviewed most recent labs. Continue low carb, [...] 03/21/2018 Assessment & Plan (12/05/2024 3:05 PM SUPERINTENDENT WAREHOUSE): Continue current dose of levothyroxine. Assessment & [...] on file Legal Sex Female 7:08 PM SUPERINTENDENT WAREHOUSE Gender Identity Not on file Sexual Orientation [...] (239 lb 6.4 oz) 12/05/2024 3:55 PM SUPERINTENDENT WAREHOUSE Height 162.6 cm (5' 4.02 ) 12/05/2024 3:55 PM CS T Body Mass Index 41.07 12/05/2024 3:55 PM SUPERINTENDENT WAREHOUSE Plan of Treatment Not on file Insurance [facility] [id number] Care Teams Whizzer Operator Relationship Specialty Start Date End Date Trey Shen MD [address] [facility] [address] [place] [address] PCP - General Family Medicine 03/10/18
--- OUTSIDE RECORDS SUMMARY | 2025-02-09 14:23 | XMS_ITS | Data Portability ---
Author Organization [employer], Main Office Address [address] [place] [address] Assessment No assessment recorded. Plan of Treatment Reminders Order Date Submit Date Provider Last Modified By Organization Details Last Modified Time Details Appointments None recorded. Lab None recorded. Referral None recorded. Procedures None recorded. Surgeries None recorded. Imaging audiogram + tympanogram 2023 024 APOLONIA [facility], [address] [place] [address], [facility] [address], [place], [address], 4 05:55:22 Medication Orders None recorded. Patient TargetsNo targets recorded. Patient Instructions Encounter Date Encounter Id Patient Instructions Last Modified By Organization Details Last Modified Time 09/13/2024 [id number] alia-hallpike test* APOLONIA Not available 11/08/2024 04:26:56 continue use of meclizine as needed for vertigo symptoms. She will see PT for [place]-Hallpike testing for possible BPPV. We will also obtain an audiogram and tympanogram for further testing. [email or web address] Not available 09/13/2024 16:04:48 Reason for Referral None Reported. Problems Name Problem SNOMED Code Status Onset Date Resolution Date Notes Provider Name and Address Organization Details Recorded Time Vertigo 906833373 Active 2023 Prince Calderon CMA null, [employer] 4 15:59:06 Sensorineural hearing loss 02331201 Active 2023 Prince Calderon CMA null, [employer] 4 16:00:48 Benign paroxysmal positional vertigo 235109850 Active 2023 HUGH Arrington [address] [facility], [facility] [address], [place], [address] , [place] [employer] 16:03:52 Problem Notes None recorded. Procedures Surgical History Date Name Laterality Status Provider Name and Address Organization Details Recorded Time 07/31/20 19 Tubal Ligation completed Prince Calderon CMA [facility] 09/13/2024 15:42:59 12/30/19 04 cholecystectomy completed Prince Calderon CMA [facility] 09/13/2024 15:42:31 Imaging Results None recorded. Procedure Notes None recorded. Medical Equipment None Reported. Allergies Allergen ID Allergen Name Allergen Category Reaction Reaction Severity Criticality Documentation Date Start Date Code Code System Note Provider Name and Address Organization Details Recorded Time 47228 Toradol medicatio n palpitati ons Not available Not available 09/12/2024 96260 RxNorm Lynn Bustamantencer [facility] 12:54:34 76310 Stadol medicatio n palpitati ons Not available Not available 09/13/2024 23488 RxNorm Prince Calderon CMA [facility] 15:38:10 Medications Name Sig Start Date [...] Address Organization Details Last Updated DateTime 09/13/2024 152384.2 g 98 [degF] 45 kg/m2 162.56 cm Prince Calderon CMA [employer] 09/13/2024 15:37:32 Social History Question Answer Notes LastModified by Organizat ion Details LastModified Time Tobacco Smoking Status Never Smoker Lynnxavier Bustamanterhoda sumner [employer] 09/12/2024 12:56:45 What Is Your Level Of Alcohol Consumption? None [email or web address] Information not available 09/12/2024 What Is Your Level Of Caffeine Consumption? Occasional Coffee [email or web address] Information not available 09/13/2024 Sex: Unknown Functional Status None recorded. Mental Status None recorded. Family History Relationship Description Onset Age of this Age Resolved Age Notes LastModified by Organization Details LastModified Time Father Diabetes mellitus [email or web address] Not available 2023 15:43:22 Father Family history of stroke [email or web address] Not available 2023 15:43:39 Mother Heart disease [email or web address] Not available 2023 15:43:46 Medical History Condition Response MRSA N ALLERGIES/HAYFEVER N BACK INJECTIONS N LUNG DISEASE/DISORDER N INSOMNIA N HISTORY OF DRUG ABUSE N ESRD N RADIATION / CHEMOTHERAPY N COPD N HIGH CHOLESTEROL / HYPERLIPIDEMIA N HYPERTHYROIDISM Y PVD N BLOOD DISEASES N EAR OR HEARING PROBLEMS N HYPOTHYROIDISM N SHINGLES N DEPRESSION (INCLUDING POST ) N BACK / NECK PROBLEMS N HAVE YOU BEEN HOSPITALIZED OR SEEN IN [facility] ER IN THE PAST YEAR ? N [...] N SLEEP DISORDER N ARTERIAL INSUFFICIENCY N HEADACHES/MIGRAINES N SEIZURES/EPILEPSY N CHF N PACEMAKER N DIZZINESS N [...] SNOMED-CT Code Diagnosis ICD10 Code Diagnosis Note [id number] HUGH Arrington [facility] [place] [address] [place] [address] 09/13/2024 15:26:45 09/13/2024 16:05:18 Benign paroxysmal positional vertigo 701687868 H81.10 Health Concerns Section Related Observation LastModified by Organization Detai ls LastModified Time None Recorded Concern Status LastModified by Organization Details LastModified Time None Recorded Advance Directives Directive None Recorded Payers Encounter Date Sequence Insurance Name Policy Number Policy Castro Covered Member ID Castro Member ID Guarantor Name 09/13/2024 1 [employer] Austin Dong [id number] Austin Dong Notes Date Note Type Note [...] also notes if she moves her head [id number] quickly this can also elicit symptoms. She also reports that when her spouse was watching football on the television the other day, this too was causing vertigo like symptoms. Bettie Ibarra, SUPPORT ENGINEER [address] [facility], [place] [address], [place], [address], [facility] 09/13/2024 16:04:52 OBGyn Episode No OBEpisode recorded.
--- OUTSIDE RECORDS SUMMARY | 2025-02-09 14:23 | XMS_ITS | Data Portability ---
Author Organization [facility], [place] Address [address] [place] [address] Care Team Providers Care Refund Clerk Name Role Phone STEFAN MCLAUGHLIN Primary Care Provider [phone] Assessment Encounter Date Assessment Date Assessment LastModified [...] mammogram due to mass found in right Not available 07/30/2021 10:56:08 02/17/2024 02/17/2024 Annual [...] Imaging MAMMO, screening, digital, bilateral 2023 024 [facility], [address], [address], [place], [address], 05:01:18 US, pelvis 2020 021 [email or web address] [place], [address], [place], [address], 07:22:39 US, transvagina l 2020 021 [email or web address] [place], [address], [place], [address], 07:22:39 US, pelvis, complete 2020 [email or web address] Not [...] Faina n or [place] (NIL) Elect nia shook juana d by Madina Joshi , [...] as clini tyrell mullins nted. Not Available [facility] (Lab) [address], [place], [address], 08/03/2021 19:24:02 02/17/20 24 02/17/2024 IMAGE GUIDE [...] as clini tyrell warra nted. Not Available [facility] (Lab) [address], [place], [address], 02/22/2024 15:56:44 08/01/2008/01/2021 US, trans quan al No observ ation record ed. [facility] [address], [place], [address], 08/05/2021 17:01:44 08/01/20 21 08/01/2021 , earlene amezquita No observ ation record ed. [facility] [address], [place], [address], 08/01/2021 17:08:35 08/01/2008/01/2021 US, emanuel glass al No observ ation record ed. [facility] [address], [place], [address], 08/01/2021 17:08:44 Result Notes None recorded. Problems Name Problem SNOMED Code Status Onset Date Resolution Date Notes Provider Name and Address Organization Details Recorded Time Pregnanc y test negative 893583617 Completed 201707/29/2021 Encounte r for pregnanc y test, result negative ;Practic e ID: 0001 Kari sumner [facility] 17:16:18 Finding of menstrua l bleeding Completed 201707/29/2021 Excessiv e and frequent menstrua tion with regular cycle;Pr actice ID: 0001 Kari Najera [facility] 17:15:23 Finding of pattern of menstrua l cycle 589529943 Completed 201707/29/2021 Excessiv e and frequent menstrua tion with irregula r cycle;Pr actice ID: 0001 Kari sumner [facility] 17:15:25 Finding of regulari ty of menstrua l cycle Completed 201707/29/2021 Irregula r menstrua tion, unspecif ied;Prac julian ID: 0001 Kari Najera [facility] 17:15:27 Female genitali a finding Completed 201707/29/2021 Foreign body in vulva and vagina, sequela; Practice ID: 0001 Kari sumner [facility] 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 17:16:11 Pain in [...] P.C. 17:16:15 Urinary tract infectio us disease 93032965 Completed 201807/29/2021 Urinary tract infectio n, site not specifie d;Practi ce ID: 0001 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 17:16:32 Screenin g for malignan t neoplasm of rectum Completed 201807/29/2021 Encounte r for screenin g for malignan t neoplasm of rectum;P ractice ID: 0001 Kari sumner [facility] 17:16:28 Right lower quadrant pain 904215293 Completed 201607/29/2021 Right lower quadrant pain;Pra ctice ID: 0001 Kari sumner [facility] 17:16:24 Pelvic and perineal pain 563130404 Completed 201607/29/2021 Pelvic and perineal pain;Pra ctice ID: 0001 Kari sumner, [facility] 17:16:12 Hypothyr oidism 04964462 Completed 201607/29/2021 Hypothyr oidism, unspecif ied;Prac julian ID: 0001 Kari Najera [facility], [facility] 17:15:57 Depressi ve disorder 25407052 Completed 201607/29/2021 Major depressi ve disorder , single episode, unspecif ied;Prac julian ID: 0001 Kari Najera [facility], [facility] 17:15:09 Acute vaginiti s 43269626 Completed 201607/29/2021 Acute vaginiti s;Practi ce ID: 0001 Kari Najera [facility], [facility] 17:14:[address] Concept Completed 201607/29/2021 Encntr for general adult medical exam w/o abnormal findings ;Recorde d Elsewher e: No Locat ion: [facility] S ource: EHR Wall Man luz: N Practi ce ID: 0001 Petr lable Time: 09:30:00 AM Kari Najera [facility] 17:16:30 Clinical finding Completed 201507/29/2021 Presence of (intraut erine) contrace ptive device;R ecorded Elsewher e: No Locat ion: [facility] S ource: EHR Wall Man luz: N Practi ce ID: 0001 Petr lable Time: 12:45:00 PM Kari Najera [facility] 17:14:38 Evaluati on finding Completed 201807/29/2021 Hematuri a, unspecif ied;Toni rded Elsewher e: No [facility]at ion: [facility] Vicentati ce ID: 0001 Petr lable Time: 08:15:00 AM Kari sumner, [facility] 17:15:14 Insertio n of intraute rine contrace ptive device Completed 201507/29/2021 Encounte r for insertio n of intraute rine contrace ptive device;R ecorded Elsewher e: No Locat ion: [facility] Practi ce ID: 0001 Petr lable Time: 12:45:00 PM Kari sumner, [facility] 17:16:02 Increase d frequenc y of urinatio n [id number] Completed 201307/29/2021 Urinary frequenc y;Record ed Elsewher e: No Locat ion: [facility] N Vicentati ce ID: 0001 Petr lable Time: 02:00:00 PM Kari sumner, [facility] 17:15:59 Lesion of ovary Completed 201607/29/2021 Other ovarian cyst, right side;Rec orded Elsewher e: No Locat ion: [facility] N Vicentati ce ID: 0001 Petr lable Time: 01:30:00 PM Kari sumner [facility] 17:14:55 Clinical finding Completed 201607/29/2021 Obesity, unspecif ied;Toni rded Elsewher e: No Locat ion: [facility] Practi ce ID: 0001 Petr lable Time: 01:45:00 PM Kari sumner [facility] 17:15:29 Speciali zed medical examinat ion Completed 201207/29/2021 Gynecolo gical Examinat ion;Toni rded Elsewher e: No Locat ion: [facility] S ource: EHR Wall Man luz: N Practi ce ID: 0001 Petr lable Time: 03:00:00 PM Kari Najera taisha, [facility] 17:16:34 Speciali zed medical examinat ion Completed 201108/15/2012 Gynecolo gical Examinat ion;Toni rded Elsewher e: No Locat ion: [facility] S ource: EHR Wall Man luz: N Practi ce ID: 0001 Petr lable Time: 11:30:00 AM Kari Najera [facility], [facility] 17:16:34 Dysfunct ional uterine bleeding Completed 201008/15/2012 Other disorder s of menstrua tion and other abnormal bleeding from female genital tract;Re corded Elsewher e: No Locat ion: [facility] Practi ce ID: 0001 Petr lable Time: 03:30:00 PM Kari Najera [facility] 17:15:12 Breast lump [id number] Completed 201307/29/2021 Breast Lump Or Mass;Rec orded Elsewher e: No Locat ion: [facility] Y Vicentati ce ID: 0001 Petr lable Time: 04:30:00 PM Kari Najera [facility], [facility] 17:14:35 Removal of intraute rine device Completed 201607/29/2021 Encounte r for removal of intraute rine contrace ptive device;R ecorded Elsewher e: No Locat ion: [facility] Practi ce ID: 0001 Petr lable Time: 08:45:00 AM Kari sumner [facility] 17:16:22 Adult health examinat ion Completed 201307/29/2021 ROUTINE MEDICAL EXAM;Rec orded Elsewher e: No Locat ion: [facility] S ource: EHR Wall Man luz: N Practi ce ID: 0001 Petr lable Time: 02:00:00 PM Kari sumner [facility] 17:14:08 Cyst of ovary Completed 201607/29/2021 Unspecif ied ovarian cyst, unspecif ied side;Rec orded Elsewher e: No Locat ion: [facility] S ource: EHR Wall Man luz: N Practi ce ID: 0001 Petr lable Time: 01:30:00 PM Kari sumner [facility] 17:14:40 Dysfunct ional uterine bleeding Completed 201007/29/2021 DUB;Prac julian ID: 0001 Kari Najera [facility], [facility] 17:15:12 Nausea 019445211 Completed 201007/29/2021 Nausea alone;Pr actice ID: 0001 Kari Najera [facility] 17:16:08 Screenin g for malignan t neoplasm of cervix Completed 201107/29/2021 Pap Smear;Pr actice ID: 0001 Kari Najera [facility], [facility] 17:16:26 Malaise and fatigue 943944423 Completed 201207/29/2021 Fatigue And Malaise; Practice ID: 0001 Kari Najera [facility] 17:16:04 Female genital organ symptoms 090132322 Completed 201207/29/2021 Unspecif ied symptom associat ed with female genital organs;P ractice ID: 0001 Kari sumner [facility] 17:15:17 Microsco pic hematuri a [id number] Completed 201507/29/2021 Other microsco pic hematuri a;Practi ce ID: 0001 Kari Contrerastz [facility], [facility] 17:16:06 Surveill ance of contrace ption Completed 201507/29/2021 Encounte r for surveill ance of contrace ptives, unspecif ied;Prac julian ID: 0001 Kari Najera [facility] 17:16:38 Problem Notes None recorded. Procedures Surgical History Date Name Laterality Status Provider Name and Address Organization Details Recorded Time 07/30/20 21 Date of Last Pap Smear completed [facility] 07/30/2021 09:55:09 07/30/20 18 Tubal Ligation completed [facility] 07/29/2021 17:34:29 02/29/20 18 endometrial biopsy completed [facility] 07/29/2021 17:33:40 08/15/20 12 Breast Biopsy completed [facility] 07/29/2021 17:32:59 12/30/19 03 cholecystectomy completed [facility] 07/29/2021 17:34:42 11/29/19 02 Colposcopy completed [facility] 07/29/2021 17:20:03 Imaging Results Imaging Date Name Status LastModified by Organization Details LastModified Time 08/01/2021 US, transvaginal completed [address], [place], [address], 08/05/2021 17:01:44 08/01/2021 US, pelvis completed joz[address], [place], [address], 08/01/2021 17:08:35 08/01/2021 , transvaginal completed jozef [address], [place], [address], 08/01/2021 17:08:44 Procedure Notes None recorded. Medical Equipment None Reported. Allergies Allergen ID Allergen Name Allergen Category Reaction Reaction Severity Criticality Documentation Date Start Date Code Code System Note Provider Name and Address Organization Details Recorded Time 71198 ketorolac medicatio n Not available Not available Not available 07/30/2021 61508 RxNorm Kari Najera [facility] 09:54:01 Medications Name Sig [...] Prescrib ed Elsewher e: Yes Loca tion: [facility] odify By: efraín gee DateTime : 10/29/20 11 03:30:00 PM Not Available Not Available Not Available doxycycli ne hyclate 50 mg capsule take 1 capsule by oral route every 12 hours 02/07 completed Prescrib ed Elsewher e: Yes Loca tion: [facility] odify By: mike armendariz DateTime : 04/13/20 16 01:00:00 PM Not Available Not Available Not Available Pyridium 200 mg tablet take 1 tablet by oral route 3 times every day after meals 03/14/ 2019 09/01 /2021 completed Prescrib ed Elsewher e: No Locat ion: [facility] odify By: lbillhar tz Encou nter [...] Prescrib ed Elsewher e: No Locat ion: [facility] odify By: mike jianguntjessica DateTime : 12/17/19 02:43:41 PM Not Available Not Available Not Available Soma 350 mg tablet take 1 tablet by oral route 3 times every day and at bedtime 04/13 completed Prescrib ed Elsewher e: No Locat ion: [facility] odify By: daryl delgado DateTime : [...] Prescrib ed Elsewher e: No Locat ion: [facility] odify By: andrew Alvarez ncounter DateTime : 02/14/20 09:38:29 AM Not Available Not Available Not Available nystatin 100,000 unit/gram topical cream 02/16 completed Not Available Not Available Not Available Synthroid 88 mcg tablet take 1 tablet by oral route every day 04/13 completed Prescrib ed Elsewher e: Yes Loca tion: [facility] odify By: daryl delgado DateTime : 09/20/20 14 02:00:00 PM Not Available Not Available Not Available Synthroid 50 mcg tablet take 1 tablet by oral route every day 02/16 completed Prescrib ed Elsewher e: Yes Loca tion: [facility] odify By: mike armendariz DateTime : 04/20/20 16 03:15:00 PM Not Available Not Available Not Available Adipex-P 37.5 mg capsule take 1 capsule by oral route every day before breakfas t 09/20 completed Prescrib ed Elsewher e: Yes Loca tion: [facility] odify By: efraín gee DateTime : 03/15/20 14 04:30:00 PM Not Available Not Available Not Available Vitamin D2 1,250 mcg (50,000 unit) capsule take 1 capsule (21501BH ITS) by oral route every week 03/15 completed Prescrib ed Elsewher e: No Locat ion: [facility] odify By: isabel jianguntjessica DateTime : [...] ed Elsewher e: No Locat ion: [facility] odify By: andrew armendariz DateTime : 02/10/20 19 08:15:00 AM Not Available Not Available Not Available Wellbutri n XL 300 mg 24 hr tablet, extended release take 1 tablet by oral route every day 02/07 completed Prescrib ed Elsewher e: No Locat ion: [facility] odify By: mike armendariz DateTime : [...] Prescrib ed Elsewher e: No Locat ion: [facility] odify By: mike Alvarez ncounter DateTime : 02/08/20 18 01:45:00 PM Not Available Not Available Not Available Lo Loestrin Fe 1 mg-10 mcg (24)/10 mcg (2) tablet take 1 tablet by oral route every day 01/04 completed Prescrib ed Elsewher e: No Locat ion: [facility] odify By: mike Alvarez ncounter DateTime [...] Updated DateTime 07/30/2021 161.93 cm 46.7 kg/m2 334622.9 4 g 127 mm[Hg] 84 mm[Hg] Kari Najera [facility] 09:53:20 Date Recorded Body height Body mass index (BMI) Body weight Systolic blood pressure Diastolic blood pressure Provider Name and Address Organization Details Last Updated DateTime 02/17/2024 160.02 cm 45.5 kg/m2 542554.2 4 g 136 mm[Hg] 91 mm[Hg] Sabi Roca [facility] 4 10:12:21 Social History Question Answer Notes LastModified by Organizat ion Details LastModified Time Tobacco Smoking Status Never Smoker Kari sumner, [facility] 07/30/2021 09:56:22 What Is Your Level Of Alcohol Consumption? Occasional [email or web address] Information not available 07/30/2021 If You Are , What Was Your Level Of Alcohol Consumption Prior To ? None Information not available 07/30/2021 Are You Blind Or Do You Have Difficulty Seeing? No [email or web address] Information n ot available 07/30/2021 What Is Your Level Of Caffeine Consumption? Occasional [email or web address] Information not available 07/30/2021 In The 14 Days Before Symptom Onset, Have You Had Close Contact With A Laboratory-confirm ed COVID-19 While That Case Was Ill? No [email or web address] Information n ot available 07/30/2021 In The 14 Days Before Symptom Onset, Have You Had Close Contact With A Person Who Is Under Investigation For COVID-19 While That Person Was Ill? No [email or web address] Information not available 07/30/2021 Have You Been To An Area Known To Be High Risk For COVID-19? No [email or web address] Information not available 07/30/2021 Are You Deaf Or Do You Have Serious Difficulty Hearing? No [email or web address] Information not available 07/30/2021 What Type Of Diet Are You Following? REGULAR [email or web address] Information n ot available 07/30/2021 Do You Use Your Seat Belt Or Car Seat Routinely? Yes [email or web address] Information not available 07/30/2021 Do You Have Smoke And Carbon Monoxide Detectors In Your Home? Yes [email or web address] Information not available 07/30/2021 Do You Feel Stressed (tense, Restless, Nervous, Or Anxious, Or Unable To Sleep At Night)? [id number] [email or web address] Information not available 07/30/2021 Do You Use Any Illicit Or Recreational Drugs? No [email or web address] Information not available 07/30/2021 Do You Use Sunscreen Routinely? Yes [email or web address] Information not available 07/30/2021 Has Tobacco Cessation Counseling Been Provided? No [email or web address] Information not available 07/30/2021 Do You Or Have You Ever Used Any Other Forms Of Tobacco Or Nicotine? No [email or web address] Information not available 07/30/2021 Sex: Unknown Functional Status Question Answer Note LastModified by Organizat ion Details LastModified Time Are you able to walk? YESWOREST [email or web address] Information not available 07/30/2021 What is your exercise level? Occasional [email or web address] Information not available 07/30/2021 Mental Status None recorded. Family History Relationship Description Onset Age of this Age Resolved Age Notes LastModified by Organization Details LastModified Time Maternal Aunt Malignant tumor of colon [email or web address] Not available 07/29 17:29:59 Maternal Aunt Heart disease [email or web address] Not available 07/29 17:30:47 Paternal Grandmother Malignant tumor of breast [email or web address] Not available 07/29 17:30:21 Maternal Grandmother Malignant tumor of breast [email or web address] Not available 07/29 17:30:21 Maternal Grandmother Malignant neoplasm of liver [email or web address] Not available 07/29 17:32:14 Mother Heart disease Not available 07/29 17:30:47 Mother Hypertensive disorder [email or web address] Not available 07/29 17:31:17 Maternal Uncle Heart disease [email or web address] Not available 07/29 17:30:47 Sister Hypertensive disorder [email or web address] Not available 07/29 17:31:17 Sister Diabetes mellitus [email or web address] Not available 07/29 17:31:31 Father Diabetes mellitus Not available 07/29 17:31:42 Father Hypertensive disorder Not available 07/29 17:32:24 Notes:Father: Diabetes melli [...] SNOMED-CT Code Diagnosis ICD10 Code Diagnosis Note [id number] Solange Ye CNM [place] [address] [address] 07/30/2021 09:41:09 07/30/2021 15:54:38 Gynecologic examination 03727784 Z01.419 Dyspareunia 93257975 N94 .10 f/u pending [id number] [facility] [address] [address] 08/01/2021 16:05:54 08/01/2021 16:54:26 Dyspareunia 80092801 N94.10 [id number] ALCIDES Isaac [place] [address] [address] 02/17/2024 10:04:57 02/17/2024 10:41:21 Gynecologic examination 94427884 Z01.419 WWEBC - BTLpap updateddec lined STI screenmamm ogram order givencolon oscopy UTDroutine labs/PCPge netic testing discussed/ fam hx reviewedBP precaution s reviewedRT C in 1 yr or sooner if needed Suggested Calcium with Vitamin D daily. Patient advised to get an annual flu shot in the fall and she could obtain at [facility] or [facility] care clinic. Also to obtain TDap [...] email. Screening for malignant neoplasm of breast 625846434 Z12.39 Health Concerns Section Related Observation LastModified by Organization Detai ls LastModified Time None Recorded Concern Status LastModified by Organization Details LastModified Time None Recorded Advance Directives Directive None Recorded Payers Encounter Date Sequence Insurance Name Policy Number Policy Castro Covered Member ID Castro Member ID Guarantor Name 07/30/2021 1 [employer] - DOS PRIOR TO 21 - [facility] [employer] [id number] Austin Mckeon [id number] OI Austin Dong 08/01/2021 1 [employer] - DOS PRIOR TO 21 - [facility] [employer] [id number] Austin Mckeon [id number] OI Austin Dong 02/17/2024 1 [employer] - [facility] [employer] [id number] Austin Dong [id number] JC Dong Notes Date Note Type Note [...] again Solange Ye CNM [address], [place], [address], [facility] 07/30/2021 10:58:55 02/17/2024 text/html Annual GYNReport [...] to repeat ALCIDES Isaac [address], [place], [address], [facility] 02/17/2024 10:36:51 OBGyn Episode Ob Episode Information Episode Created Date Number of Fetuses Patient Bloodtype Patient rh Status Prepregnancy Weight lbs Domestic Partner Domestic Partner Phone Father Name Public Defender Status 07/29/20 21 1 CLOSED Fetus Data First Name Last Name Admitted to NICU Weight (g) Sex Living Outcome Pediatric Complications Fetus ID Race Codes Race Delivery Type , Induced 18506 Solomon Calculation Initial Solomon Date Initial Exam [...] Domestic Partner Domestic Partner Phone Father Name Public Defender Status 07/29/20 21 1 CLOSED Fetus Data First Name Last Name Admitted to NICU Weight (g) Sex Living Outcome Pediatric Complications Fetus ID Race Codes Race Delivery Type 3373.36 3704 F Full Term 71730 Vaginal Delivery Solomon Calculation Initial Solomon Date [...] Domestic Partner Domestic Partner Phone Father Name Public Defender Status 07/29/20 21 1 CLOSED Fetus Data First Name Last Name Admitted to NICU Weight (g) Sex Living Outcome Pediatric Complications Fetus ID Race Codes Race Delivery Type 3770.25 6704 M Full Term 02022 Vaginal Delivery Solomon Calculation Initial Solomon Date [...] Domestic Partner Domestic Partner Phone Father Name Public Defender Status 07/29/20 21 1 CLOSED Fetus Data First Name Last Name Admitted to NICU Weight (g) Sex Living Outcome Pediatric Complications Fetus ID Race Codes Race Delivery Type , Spontane ous 31236 Solomon Calculation Initial Solomon Date Initial Exam [...] Domestic Partner Domestic Partner Phone Father Name Public Defender Status 07/29/20 21 1 CLOSED Fetus Data First Name Last Name Admitted to NICU Weight (g) Sex Living Outcome Pediatric Complications Fetus ID Race Codes Race Delivery Type 4110.45 0704 M Full Term 75364 Vaginal Delivery Solomon Calculation Initial Solomon Date [...] Domestic Partner Domestic Partner Phone Father Name Public Defender Status 07/29/20 21 1 CLOSED Fetus Data First Name Last Name Admitted to NICU Weight (g) Sex Living Outcome Pediatric Complications Fetus ID Race Codes Race Delivery Type , Spontane ous 32643 Solomon Calculation Initial Solomon Date Initial Exam [...]
--- OUTSIDE RECORDS SUMMARY | 2025-02-09 14:23 | XMS_ITS | Clinical Summary ---
Author Organization [facility] Physician Office Building [address] [place] [phone] Care Team Providers Care Principal Programmer Name Role Phone Trey Shen MD Primary [...] 12/05/2024 Assessment & Plan (12/05/2024 3:05 PM MARKETING COMMUNICATIONS ASSISTANT): I counseled the patient on exercise: Recommend [...] 12/05/2024 Assessment & Plan (12/05/2024 3:57 PM MARKETING COMMUNICATIONS ASSISTANT): Patient's highest BMI was 48.6 ; initial BMI was 46.8; this has improved to 41.07 through medical management Vitamin D deficiency 09/12/2024 Assessment & Plan (12/05/2024 3:06 PM MARKETING COMMUNICATIONS ASSISTANT): Continue vitamin-D supplementation Assessment & Plan (09/12/2024 4:10 PM CDT): start vitamin-D replacement 5,000IU daily Encounter for weight loss counseling 07/11/2024 Assessment & Plan (12/05/2024 3:05 PM MARKETING COMMUNICATIONS ASSISTANT): Reviewed importance of adequate protein intake. Reviewed [...] 07/11/2024 Assessment & Plan (12/05/2024 3:05 PM MARKETING COMMUNICATIONS ASSISTANT): Obesity is one of the leading risk [...] 03/21/2018 Assessment & Plan (12/05/2024 4:18 PM MARKETING COMMUNICATIONS ASSISTANT): Reviewed most recent labs. Continue low carb, [...] 03/21/2018 Assessment & Plan (12/05/2024 3:05 PM MARKETING COMMUNICATIONS ASSISTANT): Continue current dose of levothyroxine. Assessment & [...] Type Department Care Team Description 02/02/2025 Telephone [facility] Medical Office Building 4, [address] [place] [address] Nirali Sands CMA 12/05/2024 4:00 PM MARKETING COMMUNICATIONS ASSISTANT Telemedicine [facility] [address] [place] [address] [address] [place] [address] Carmela Siddiqui PA Encounter for weight loss counseling (Primary Dx); Metabolic syndrome; Obesity, Class III, BMI 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) ([facility]); Acquired hypothyroidism; Vitamin D deficiency; Encounter for exercise counseling; Body mass index 45.0-49.9, adult ([facility]) 11/15/2024 Telephone [facility] [address] [facility] Medical Office Building 4, [address] [place] [address] Carmela Siddiqui PA Med Refill [...] on file Legal Sex Female 7:08 PM MARKETING COMMUNICATIONS ASSISTANT Gender Identity Not on file Sexual Orientation [...] (239 lb 6.4 oz) 12/05/2024 3:55 PM MARKETING COMMUNICATIONS ASSISTANT Height 162.6 cm (5' 4.02 ) 12/05/2024 3:55 PM CS T Body Mass Index 41.07 12/05/2024 3:55 PM MARKETING COMMUNICATIONS ASSISTANT Plan of Treatment Health Maintenance Due Date [...] patient's age to complete this topic Insurance [facility] [id number] Care Teams Principal Programmer Relationship Specialty Start Date End Date Trey Shen MD [address] [facility] [address] [facility] [address] [place] [address] PCP - General Family Medicine 03/10/18
--- OUTSIDE RECORDS SUMMARY | 2025-02-09 14:23 | XMS_ITS | Clinical Summary ---
Author Organization [facility] Address [address] [place] [address] Care Team Providers Care Burning Plant Operator Name Role Phone Unavailable Primary Care Provider [...] Encounters Date Type Department Care Team Description 02/08/2025 Orders Only [facility] Oncology and Hematology - [place] [address] [place] [phone] Neal Mena MD 02/05/2025 External Device Data STL ABSTRACTION Provider, Abstract 02/02/2025 2:00 PM PASSENGER CAR CLEANING SUPERVISOR Office Visit [facility] Oncology and Hematology - [place] [address] [place] [phone] Neal Mena MD Malignant neoplasm of upper-outer [...] on file Legal Sex Female 5:43 AM PASSENGER CAR CLEANING SUPERVISOR Gender Identity Not on file Sexual Orientation Not on file Last Filed Vital Signs Vital Sign Reading Time Taken Comments Blood Pressure 124/82 02/02/2025 1:48 PM PASSENGER CAR CLEANING SUPERVISOR Pulse 73 02/02/2025 1:46 PM PASSENGER CAR CLEANING SUPERVISOR Temperature 36.3 C (97.4 F) 02/02/2025 1:46 PM PASSENGER CAR CLEANING SUPERVISOR Respiratory Rate 16 02/02/2025 1:46 PM PASSENGER CAR CLEANING SUPERVISOR Oxygen Saturation 97% 02/02/2025 1:46 PM PASSENGER CAR CLEANING SUPERVISOR Inhaled Oxygen Concentration - - Weight 111.9 kg (246 lb 9.6 oz) 02/02/2025 1:46 PM PASSENGER CAR CLEANING SUPERVISOR Height 162.6 cm (5' 4 ) 02/02/2025 1:46 PM PASSENGER CAR CLEANING SUPERVISOR Body Mass Index 42.33 02/02/2025 1:46 PM PASSENGER CAR CLEANING SUPERVISOR Plan of Treatment Health Maintenance Due [...] 5 years 2023 INFLUENZA VACCINE (#1) 2024 Preventative Visit- Commercial 11/29/2024 Procedures Procedure Name Priority Date/Time Associated Diagnosis Comments ECHO COMPLETE Routine 02/07/2025 11:13 AM CDT from Last 3 Months Results * ECHO COMPLETE (02/07/2025 11:13 AM CDT) Neal Mena MD ECHO ORDERABLES Final Result from Last 3 Months Insurance [employer] O OPEN ACCESS Member Subscriber Plan / Payer (Ef fective 2021-Present) Name:Austin Dong Relation to Subscriber:Self Name:Austin Dong Payer ID:Not on file Type:HMO Address: [address] [facility]
--- OUTSIDE RECORDS SUMMARY | 2025-02-09 14:24 | XMS_ITS | Encounter Summary ---
Author Organization [facility] [employer] [facility] Address [address] [place] [address] Care Team Providers Care Lumber Scaler Name Role Phone Unavailable Primary Care Provider Unavailabl e Encounter Details Date Type Department Care Team (Late st Contact Info) Description 02/08/2025 Orders Only [facility] Oncology and Hematology - [place] [address] [facility] [address] [place] [address] Neal Mena MD [address] [facility] [address] [place] [address] Social History Tobacco Use Types Packs/Day Years Used Date Smoking Tobacco: Never Smokeless Tobacco: Never Alcohol Use Standard Drinks/Week Comments Never 0 (1 standard drink = 0.6 oz pur e alcohol) Comments Unknown Sex and Gender Information Value Date Recorded Sex Assigned at Not on file 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
== END 2025-02-09 14:17 | disposition home or self-care (01) ==
PROVIDERS: PCP Family Medicine; Visit Provider Internal Medicine Hematology & Oncology
DX: C50.412 Malignant neoplasm of upper-outer quadrant of left female breast (principal); Z17.0 Estrogen receptor positive status [ER+]
CPT/HCPCS: 71260; 74177; Q9967

== ENCOUNTER 2025-02-12 10:53 | Outpatient (CLI) | payer OTHER, SELFPAY ==
--- NOTE | ~2025-02-12 | MR_ITS ---
MR breast BI wo/w con 02/12/2025 13:09 CDT INDICATION: Known left breast cancer TECHNIQUE: MRI of the breasts perform using standard protocol pre-and post IV contrast with the follo wing sequences: Axial T2 STIR, axial T1, axial vibrant T1 with fat suppression precontrast and multip hasic postcontrast. 20 cc ProHance administered intravenously. COMPARISON: Comparison to multiple prior studies sequentially, with oldest reviewed study dated 08/18. FINDINGS: Right breast: There are scattered areas of fibroglandular content. There are no abnormalities on the precontrast sequences. There is minimal background parenchymal enhancement. No enhancing lesions fo llowing contrast administration. No areas of enhancement meeting threshold criteria on CAD analysis. No evidence of signal abnormalities in the axillary or internal mammary node distributions. LEFT BREAST: Precontrast sequence demonstrates an irregular shaped mass in the upper inner quadrant o f the left breast. There is minimal background parenchymal enhancement. The mass in the upper inner q uadrant of the left breast measures approximately 2.8 x 2 x 1.5 cm with abnormal rapid washout enhanc ement, irregular shape and margins with heterogeneous enhancement. This corresponds to the malignancy seen on prior examinations. There is an abnormal conglomeration of lymph nodes in the axilla measuri ng approximately 5.1 x 3.7 x 1.9 cm in aggregate amount consistent with metastatic disease. No additi onal suspicious masses are identified. IMPRESSION: 1: Right breast: Negative. No evidence of malignancy. BI-RADS category 1. Recommend annual mammo graphy follow-up. 2: Left breast: Abnormal 2.8 cm right breast mass in the upper inner quadrant, middle third, approxi mately 6.3 cm posterior to the nipple. This mass corresponds to the patient's known malignancy. There is biopsy-proven metastatic disease to the left axillary lymph nodes. BI-RADS category 6- Known biop sy proven malignancy: Appropriate action should be taken. Reviewed, dictated and finalized at location B. IMPRESSION: 1: Right breast: Negative. No evidence of malignancy. BI-RADS category 1. Recommend annual mammography follow-up. 2: Left breast: Abnormal 2.8 cm right breast mass in the upper inner quadrant, middle third, approximately 6.3 cm posterior to the nipple. This mass correspo nds to the patient's known malignancy. There is biopsy-proven metastatic diseas e to the left axillary lymph nodes. BI-RADS category 6- Known biopsy proven mal ignancy: Appropriate action should be taken.
--- OUTSIDE RECORDS SUMMARY | 2025-02-12 13:25 | XMS_ITS | Referral Summary ---
Author Organization [facility] Physician Office Building [address] [place] [address] Care Team Providers Care Clinical Quality Manager Name Role Phone Trey Shen MD Primary Care Provider Encounters Date Type Department Care Team Description 02/02/2025 Telephone [facility] Diabetes [facility] Nutrition Services [address] [place] [address] Medical Office Building 4, [address] [place] [phone] Nirali Sands, ART PROFESSOR 12/05/2024 4:00 PM MORTAR MAN Telemedicine [facility] 1 [facility] [address] [place] [address] Carmela Siddiqui PA Encounter for weight loss counseling (Primary Dx); Metabolic syndrome; Obesity, Class III, BMI 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) ([facility]); Acquired hypothyroidism; Vitamin D deficiency; Encounter for exercise counseling; Body mass index 45.0-49.9, adult ([facility]) 11/15/2024 Telephone [facility] Nutrition [facility] [address] [place] [address] Medical Office Building 4, [address] [place] [address] Carmela Siddiqui PA Med Refill [...] 12/05/2024 Assessment & Plan (12/05/2024 3:05 PM MORTAR MAN): I counseled the patient on exercise: Recommend [...] 12/05/2024 Assessment & Plan (12/05/2024 3:57 PM MORTAR MAN): Patient's highest BMI was 48.6 ; initial BMI was 46.8; this has improved to 41.07 through medical management Vitamin D deficiency 09/12/2024 Assessment & Plan (12/05/2024 3:06 PM MORTAR MAN): Continue vitamin-D supplementation Assessment & Plan (09/12/2024 4:10 PM CDT): start vitamin-D replacement 5,000IU daily Encounter for weight loss counseling 07/11/2024 Assessment & Plan (12/05/2024 3:05 PM MORTAR MAN): Reviewed importance of adequate protein intake. Reviewed [...] 07/11/2024 Assessment & Plan (12/05/2024 3:05 PM MORTAR MAN): Obesity is one of the leading risk [...] 03/21/2018 Assessment & Plan (12/05/2024 4:18 PM MORTAR MAN): Reviewed most recent labs. Continue low carb, [...] 03/21/2018 Assessment & Plan (12/05/2024 3:05 PM MORTAR MAN): Continue current dose of levothyroxine. Assessment & [...] on file Legal Sex Female 7:08 PM MORTAR MAN Gender Identity Not on file Sexual Orientation [...] (239 lb 6.4 oz) 12/05/2024 3:55 PM MORTAR MAN Height 162.6 cm (5' 4.02 ) 12/05/2024 3:55 PM CS T Body Mass Index 41.07 12/05/2024 3:55 PM MORTAR MAN Plan of Treatment Not on file Insurance [facility] [id number] Care Teams Clinical Quality Manager Relationship Specialty Start Date End Date Trey Shen MD [address] [facility] [address] [place] [address] PCP - General Family Medicine 03/10/18
--- OUTSIDE RECORDS SUMMARY | 2025-02-12 13:25 | XMS_ITS | Encounter Summary ---
Author Organization [employer] Address 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 OFFICER Gender Identity Not on file Sexual Orientation [...] CDT) CRP 0.7 0.0 - 0.8 mg/dL [facility] Blood specimen (specimen) 03/15/2009 10:24 PM CDT 03/15/2009 10:40 PM CDT us Juan Carranza MD CHEMISTRY ORDERABLES Final Resu lt INTERFACE SYSTEM Refer to clinic/hospital department [facility] CLIA# [id number] [address] [place] [address] * (ABNORMAL) COMPREHENSIVE METABOLIC PANEL (03/15/2009 10:24 PM CDT) CREATININE 0.60 0.51 - 0.95 mg/dL [facility] SODIUM 137 135 - 145 mmol/L [facility] ALT 12 0 - 31 U/L [facility] ALKALINE PHOSPHATASE 46 35 - 104 U/L [facility] BILIRUBIN TOTAL 0.5 0.2 - 1.0 mg/dL [facility] CO2 21(L) 22 - 30 mmol/L [facility] TOTAL PROTEIN 6.1(L) 6.3 - 8.6 g/dL [facility] POTASSIUM 3.1(L) 3.5 - 4.9 mmol/L [facility] GLUCOSE 111(H) 65 - 99 mg/dL [facility] AST 17 12 - 32 U/L [facility] BUN 6 6 - 20 mg/dL [facility] CALCIUM 8.5(L) 8.6 - 10.2 mg/dL [facility] CHLORIDE 107 96 - 108 mmol/L [facility] ALBUMIN 3.5 3.4 - 4.8 g/dL [facility] GFR, >60 >=60 mL/min/1. 7 sq meter [facility] GFR >60 >=60 mL/min/1. 7 sq meter [facility] Comment: Modification of Diet in Renal Disease (MDRD) study formula. Estimated GFR rate interpretative information for both Americans and non- Americans is available on the [facility] Intranet at: [email or web address] Select: Lab Policies and Procedures Select: Reference Ranges - GFR Blood specimen (specimen) 03/15/2009 10:24 PM CDT 03/15/2009 10:40 PM CDT Juan Carranza MD CHEMISTRY ORDERABLES Edited INTERFACE SYSTEM Refer to clinic/hospital department [facility] CLIA# [id number] [address] [place], [place] [address] * (ABNORMAL) CBC WITH DIFFERENTIAL (03/15/2009 10:24 PM CDT) HEMOGLOBIN 10.4(L) 11.8 - 14.8 g/dL [facility] RDW 14.2 11.5 - 14.5 % [facility] WBC 10.7(H) 4.0 - 9.8 K/uL [facility] MCH 30.0 27.2 - 32.6 pg [facility] MPV 10.9 9.3 - 12.4 fL [facility] HEMATOCRIT 30.4(L) 35.5 - 44.0 % [facility] RDW-STDEV 44.5 37.1 - 48.7 fL [facility] RBC 3.47(L) 3.90 - 4.90 M/uL [facility] MCHC 34.2 31.5 - 35.5 % [facility] MCV 87.6 82.0 - 99.0 fL [facility] PLATELETS 229 140 - 350 K/uL [facility] LYMPHOCYTES 17 16 - 45 % [facility] LYMPHOCYTE ABSOLUTE 1.84 0.70 - 4.50 K/uL [facility] BASOPHILS 0 0 - 2 % [facility] BASOPHILS ABSOLUTE 0.01 0.00 - 0.20 K/uL [facility] MONOCYTES 7 3 - 13 % [facility] MONOCYTE ABSOLUTE 0.72 0.10 - 1.30 K/uL [facility] NEUTROPHILS 75(H) 45 - 70 % [facility] NEUTROPHIL ABSOLUTE 8.05(H) 1.90 - 7.00 K/uL [facility] EOSINOPHILS 1 0 - 7 % [facility] EOSINOPHIL ABSOLUTE 0.07 0.00 - 0.70 K/uL [facility] Blood specimen (specimen) 03/15/2009 10:24 PM CDT 03/15/2009 10:40 PM CDT us Juan Carranza MD HEMATOLOGY ORDERABLES Edited INTERFACE SYSTEM Refer to clinic/hospital department [facility] CLIA# [id number] [address] [place], [place] [address] documented in this encounter Visit Diagnoses Not on filedocumented in this encounter
--- OUTSIDE RECORDS SUMMARY | 2025-02-12 13:25 | XMS_ITS | Clinical Summary ---
Author Organization [facility] Vj amezquita [facility] Address [address] [address] Care Team Providers Care Life Cycle Assessment Analyst Name Role Phone Unavailable Primary Care Provider [...] Department Care Team Description 02/08/2025 Orders Only [facility] Oncology and Hematology - [place] [address] [facility] [address] [place] [phone] Neal Mena MD 02/05/2025 External Device Data STL ABSTRACTION Provider, Abstract 02/02/2025 2:00 PM GEOCHEMICAL LABORATORY TECHNICIAN Office Visit [facility] Oncology and Hematology - [place] [address] [facility] [address] [place] [phone] Neal Mena MD Malignant neoplasm of upper-outer [...] on file Legal Sex Female 5:43 AM GEOCHEMICAL LABORATORY TECHNICIAN Gender Identity Not on file Sexual Orientation Not on file Last Filed Vital Signs Vital Sign Reading Time Taken Comments Blood Pressure 124/82 02/02/2025 1:48 PM GEOCHEMICAL LABORATORY TECHNICIAN Pulse 73 02/02/2025 1:46 PM GEOCHEMICAL LABORATORY TECHNICIAN Temperature 36.3 C (97.4 F) 02/02/2025 1:46 PM GEOCHEMICAL LABORATORY TECHNICIAN Respiratory Rate 16 02/02/2025 1:46 PM GEOCHEMICAL LABORATORY TECHNICIAN Oxygen Saturation 97% 02/02/2025 1:46 PM GEOCHEMICAL LABORATORY TECHNICIAN Inhaled Oxygen Concentration - - Weight 111.9 kg (246 lb 9.6 oz) 02/02/2025 1:46 PM GEOCHEMICAL LABORATORY TECHNICIAN Height 162.6 cm (5' 4 ) 02/02/2025 1:46 PM GEOCHEMICAL LABORATORY TECHNICIAN Body Mass Index 42.33 02/02/2025 1:46 PM GEOCHEMICAL LABORATORY TECHNICIAN Plan of Treatment Health Maintenance Due Date [...] Final Result from Last 3 Months Insurance [employer] O OPEN ACCESS Member Subscriber Plan / Payer (Ef fective 2021-Present) Name:Austin Dong Relation to Subscriber:Self Name:Austin Dong Payer ID:Not on file Type:HMO Address: [address] [facility]
--- OUTSIDE RECORDS SUMMARY | 2025-02-12 13:25 | XMS_ITS | Data Portability ---
Author Organization [facility], [facility] Address [address] [place] [address] [place] [address] Care Team Providers Care Funeral Planner Name Role Phone STEFAN MCLAUGHLIN Primary Care Provider [phone] Assessment Encounter Date Assessment Date Assessment LastModified [...] mammogram due to mass found in right [email or web address] Not available 07/30/2021 10:56:08 02/17/2024 02/17/2024 Annual [...] Imaging MAMMO, screening, digital, bilateral 2023 024 [facility], [address], [address], [place], [address], 05:01:18 US, pelvis 2020 021 [email or web address], [address], [place], [address], 07:22:39 US, transvagina l 2020 021 [email or web address], [address], [place], [address], 07:22:39 US, pelvis, complete 2020 [email or web address] Not [...] ing Locat ion: [place] [facility] Recei maansa: 07/31 0006 First Scree n: Any Caraballo [...] as clini tyrell mullins nted. Not Available [facility] (Lab) [address], [place], [address], 08/03/2021 19:24:02 02/17/20 24 02/17/2024 IMAGE GUIDE [...] as clini tyrell warra nted. Not Available [facility] (Lab) [address], [place], [address], 02/22/2024 15:56:44 08/01/2008/01/2021 US, trans quan al No observ ation record ed. [facility] [address], [place], [address], 08/05/2021 17:01:44 08/01/20 21 08/01/2021 , earlene amezquita No observ ation record ed. [facility] [address], [place], [address], 08/01/2021 17:08:35 08/01/2008/01/2021 US, emanuel glass al No observ ation record ed. [facility] [address], [place], [address], 08/01/2021 17:08:44 Result Notes None recorded. Problems Name Problem SNOMED Code Status Onset Date Resolution Date Notes Provider Name and Address Organization Details Recorded Time Pregnanc y test negative 506390120 Completed 201707/29/2021 Encounte r for pregnanc y test, result negative ;Practic e ID: 0001 Kari sumner [facility] 17:16:18 Finding of menstrua l bleeding Completed 201707/29/2021 Excessiv e and frequent menstrua tion with regular cycle;Pr actice ID: 0001 Kari Najera [facility] 17:15:23 Finding of pattern of menstrua l cycle 309637629 Completed 201707/29/2021 Excessiv e and frequent menstrua tion with irregula r cycle;Pr actice ID: 0001 Kari sumner [facility] 17:15:25 Finding of regulari ty of menstrua l cycle Completed 201707/29/2021 Irregula r menstrua tion, unspecif ied;Prac julian ID: 0001 Kari Najera [facility] 17:15:27 Female genitali a finding Completed 201707/29/2021 Foreign body in vulva and vagina, sequela; Practice ID: 0001 Kari sumner [facility] 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 17:16:11 Pain in female genitali a Completed 201707/29/2021 Dysmenor xander, unspecif ied;Prac julian ID: 0001 Kari sumner [facility] 08/31/202 1 17:15:19 Steriliz ation procedur e Completed 201707/29/2021 Encounte r for steriliz ation;Pr actice ID: 0001 Kari sumner [facility] 17:16:36 Procedur e on genitour inary system Completed 201707/29/2021 Encounte r for surgical aftcr followin g surgery on the sys;Prac julian ID: 0001 Kari sumner [facility] 17:16:20 Postoper ative care Completed 201707/29/2021 Encounte r for surgical aftcr followin g surgery on the sys;Prac julian ID: 0001 Kari sumner [facility] 17:16:15 Urinary tract infectio us disease 41718871 Completed 201807/29/2021 Urinary tract infectio n, site not specifie d;Practi ce ID: 0001 [facility]:16:[address] Concept Completed 201807/29/2021 Encntr for station superintendent exam (general ) (routine ) w/o abn findings ;Practic e ID: 0001 Kari sumner [facility] 17:16:32 Screenin g for malignan t neoplasm of rectum Completed 201807/29/2021 Encounte r for screenin g for malignan t neoplasm of rectum;P ractice ID: 0001 Kari sumner [facility] 17:16:28 Right lower quadrant pain 812005358 Completed 201607/29/2021 Right lower quadrant pain;Pra ctice ID: 0001 Kari sumner [facility] 17:16:24 Pelvic and perineal pain 600660624 Completed 201607/29/2021 Pelvic and perineal pain;Pra ctice ID: 0001 Kari sumner, [facility] 17:16:12 Hypothyr oidism 18146613 Completed 201607/29/2021 Hypothyr oidism, unspecif ied;Prac julian ID: 0001 Kari Najera [facility], [facility] 17:15:57 Depressi ve disorder 69426010 Completed 201607/29/2021 Major depressi ve disorder , single episode, unspecif ied;Prac julian ID: 0001 Kari Najera [facility], [facility] 17:15:09 Acute vaginiti s 40498420 Completed 201607/29/2021 Acute vaginiti s;Practi ce ID: 0001 Kari Najera [facility], [facility] 17:14:[address] Concept Completed 201607/29/2021 Encntr for general adult medical exam w/o abnormal findings ;Recorde d Elsewher e: No Locat ion: [facility]: EHR Twisting Machine Operator luz: N Practi ce ID: 0001 Petr lable Time: 09:30:00 AM Kari Najera [facility] 17:16:30 Clinical finding Completed 201507/29/2021 Presence of (intraut erine) contrace ptive device;R ecorded Elsewher e: No Locat ion: [facility]: EHR Twisting Machine Operator luz: N Practi ce ID: 0001 Petr lable Time: 12:45:00 PM Kari Najera [facility] 17:14:38 Evaluati on finding Completed 201807/29/2021 Hematuri a, unspecif ied;Toni rded Elsewher e: No Locat ion: [facility] Vicentati ce ID: 0001 Petr lable Time: 08:15:00 AM Kari sumner, [facility] 17:15:14 Insertio n of intraute rine contrace ptive device Completed 201507/29/2021 Encounte r for insertio n of intraute rine contrace ptive device;R ecorded Elsewher e: No Locat ion: [facility] N Practi ce ID: 0001 Petr lable Time: 12:45:00 PM Kari sumner, [facility] 17:16:02 Increase d frequenc y of urinatio n [id number] Completed 201307/29/2021 Urinary frequenc y;Record ed Elsewher e: No Locat ion: [facility] N Vicentati ce ID: 0001 Petr lable Time: 02:00:00 PM Kari sumner, [facility] 17:15:59 Lesion of ovary Completed 201607/29/2021 Other ovarian cyst, right side;Rec orded Elsewher e: No Locat ion: [facility] N Vicentati ce ID: 0001 Petr lable Time: 01:30:00 PM Kari sumner [facility] 17:14:55 Clinical finding Completed 201607/29/2021 Obesity, unspecif ied;Toni rded Elsewher e: No Locat ion: [facility] N Practi ce ID: 0001 Petr lable Time: 01:45:00 PM Kari sumner [facility] 17:15:29 Speciali zed medical examinat ion Completed 201207/29/2021 Gynecolo gical Examinat ion;Toni rded Elsewher e: No Locat ion: [facility]: EHR Twisting Machine Operator luz: N Practi ce ID: 0001 Petr lable Time: 03:00:00 PM Kari Najera taisha, [facility] 17:16:34 Speciali zed medical examinat ion Completed 201108/15/2012 Gynecolo gical Examinat ion;Toni rded Elsewher e: No Locat ion: [facility]: EHR Twisting Machine Operator luz: N Practi ce ID: 0001 Petr lable Time: 11:30:00 AM Kari Najera [facility], [facility] 17:16:34 Dysfunct ional uterine bleeding Completed 201008/15/2012 Other disorder s of menstrua tion and other abnormal bleeding from female genital tract;Re corded Elsewher e: No Locat ion: [facility] N Practi ce ID: 0001 Petr lable Time: 03:30:00 PM Kari Najera [facility] 17:15:12 Breast lump [id number] Completed 201307/29/2021 Breast Lump Or Mass;Rec orded Elsewher e: No Locat ion: [facility]: Y Vicentati ce ID: 0001 Petr lable Time: 04:30:00 PM Kari Najera [facility], [facility] 17:14:35 Removal of intraute rine device Completed 201607/29/2021 Encounte r for removal of intraute rine contrace ptive device;R ecorded Elsewher e: No Locat ion: [facility] N Practi ce ID: 0001 Petr lable Time: 08:45:00 AM Kari sumner [facility] 17:16:22 Adult health examinat ion Completed 201307/29/2021 ROUTINE MEDICAL EXAM;Rec orded Elsewher e: No Locat ion: [facility]: EHR Twisting Machine Operator luz: N Practi ce ID: 0001 Petr lable Time: 02:00:00 PM Kari sumner [facility] 17:14:08 Cyst of ovary Completed 201607/29/2021 Unspecif ied ovarian cyst, unspecif ied side;Rec orded Elsewher e: No Locat ion: [facility]: EHR Twisting Machine Operator luz: N Practi ce ID: 0001 Petr lable Time: 01:30:00 PM Kari sumner [facility] 17:14:40 Dysfunct ional uterine bleeding Completed 201007/29/2021 DUB;Prac julian ID: 0001 Kari Najera [facility], [facility] 17:15:12 Nausea 660467884 Completed 201007/29/2021 Nausea alone;Pr actice ID: 0001 Kari Najera [facility] 17:16:08 Screenin g for malignan t neoplasm of cervix Completed 201107/29/2021 Pap Smear;Pr actice ID: 0001 Kari Najera [facility], [facility] 17:16:26 Malaise and fatigue 145613582 Completed 201207/29/2021 Fatigue And Malaise; Practice ID: 0001 Kari Najera [facility] 17:16:04 Female genital organ symptoms 730983247 Completed 201207/29/2021 Unspecif ied symptom associat ed with female genital organs;P ractice ID: 0001 Kari sumner [facility] 17:15:17 Microsco pic hematuri a [id number] Completed 201507/29/2021 Other microsco pic hematuri a;Practi ce ID: 0001 Kari Contrerastz [facility], [facility] 17:16:06 Surveill ance of contrace ption Completed 201507/29/2021 Encounte r for surveill ance of contrace ptives, unspecif ied;Prac julian ID: 0001 Kari Najera [facility] 17:16:38 Problem Notes None recorded. Procedures Surgical History Date Name Laterality Status Provider Name and Address Organization Details Recorded Time 07/30/20 21 Date of Last Pap Smear completed [facility] 07/30/2021 09:55:09 07/30/20 18 Tubal Ligation completed [facility] 07/29/2021 17:34:29 02/29/20 18 endometrial biopsy completed [facility] 07/29/2021 17:33:40 08/15/20 12 Breast Biopsy completed [facility] 07/29/2021 17:32:59 12/30/19 03 cholecystectomy completed [facility] 07/29/2021 17:34:42 11/29/19 02 Colposcopy completed [facility] 07/29/2021 17:20:03 Imaging Results Imaging Date Name Status LastModified by Organization Details LastModified Time 08/01/2021 US, transvaginal completed [address], [place], [address], 08/05/2021 17:01:44 08/01/2021 US, pelvis completed joz[address], [place], [address], 08/01/2021 17:08:35 08/01/2021 , transvaginal completed jozef [address], [place], [address], 08/01/2021 17:08:44 Procedure Notes None recorded. Medical Equipment None Reported. Allergies Allergen ID Allergen Name Allergen Category Reaction Reaction Severity Criticality Documentation Date Start Date Code Code System Note Provider Name and Address Organization Details Recorded Time 93196 ketorolac medicatio n Not available Not available Not available 07/30/2021 47831 RxNorm Kari Najera [facility] 09:54:01 Medications Name Sig Start [...] Prescrib ed Elsewher e: Yes Loca tion: [facility] odify By: efraín gee DateTime : 10/29/20 11 03:30:00 PM Not Available Not Available Not Available doxycycli ne hyclate 50 mg capsule take 1 capsule by oral route every 12 hours 02/07 completed Prescrib ed Elsewher e: Yes Loca tion: [facility] odify By: mike armendariz DateTime : 04/13/20 16 01:00:00 PM Not Available Not Available Not Available Pyridium 200 mg tablet take 1 tablet by oral route 3 times every day after meals 03/14/ 2019 09/01 /2021 completed Prescrib ed Elsewher e: No Locat ion: [facility] odify By: lbillhar tz Encou nter [...] Prescrib ed Elsewher e: No Locat ion: [facility] odify By: mike jianguntjessica DateTime : 12/17/19 02:43:41 PM Not Available Not Available Not Available Soma 350 mg tablet take 1 tablet by oral route 3 times every day and at bedtime 04/13 completed Prescrib ed Elsewher e: No Locat ion: [facility] odify By: daryl delgado DateTime : [...] Prescrib ed Elsewher e: No Locat ion: [facility] odify By: andrew [address] ncounter DateTime : 02/14/20 09:38:29 AM Not Available Not Available Not Available nystatin 100,000 unit/gram topical cream 02/16 completed Not Available Not Available Not Available Synthroid 88 mcg tablet take 1 tablet by oral route every day 04/13 completed Prescrib ed Elsewher e: Yes Loca tion: [facility] odify By: daryl delgado DateTime : 09/20/20 14 02:00:00 PM Not Available Not Available Not Available Synthroid 50 mcg tablet take 1 tablet by oral route every day 02/16 completed Prescrib ed Elsewher e: Yes Loca tion: [facility] odify By: mike armendariz DateTime : 04/20/20 16 03:15:00 PM Not Available Not Available Not Available Adipex-P 37.5 mg capsule take 1 capsule by oral route every day before breakfas t 09/20 completed Prescrib ed Elsewher e: Yes Loca tion: [facility] odify By: efraín gee DateTime : 03/15/20 14 04:30:00 PM Not Available Not Available Not Available Vitamin D2 1,250 mcg (50,000 unit) capsule take 1 capsule (55446YZ ITS) by oral route every week 03/15 completed Prescrib ed Elsewher e: No Locat ion: [facility] odify By: isabel jianguntjessica DateTime : [...] ed Elsewher e: No Locat ion: [facility] odify By: andrew armendariz DateTime : 02/10/20 19 08:15:00 AM Not Available Not Available Not Available Wellbutri n XL 300 mg 24 hr tablet, extended release take 1 tablet by oral route every day 02/07 completed Prescrib ed Elsewher e: No Locat ion: [facility] odify By: mike armendariz DateTime : [...] Prescrib ed Elsewher e: No Locat ion: [facility] odify By: mike [address]varez ncounter DateTime : 02/08/20 18 01:45:00 PM Not Available Not Available Not Available Lo Loestrin Fe 1 mg-10 mcg (24)/10 mcg (2) tablet take 1 tablet by oral route every day 01/04 completed Prescrib ed Elsewher e: No Locat ion: [facility] odify By: mike [address]varez ncounter DateTime [...] Updated DateTime 07/30/2021 161.93 cm 46.7 kg/m2 314046.9 4 g 127 mm[Hg] 84 mm[Hg] Kari Najera [facility] 09:53:20 Date Recorded Body height Body mass index (BMI) Body weight Systolic blood pressure Diastolic blood pressure Provider Name and Address Organization Details Last Updated DateTime 02/17/2024 160.02 cm 45.5 kg/m2 741683.2 4 g 136 mm[Hg] 91 mm[Hg] Sabi Roca [facility] 4 10:12:21 Social History Question Answer Notes LastModified by Organizat ion Details LastModified Time Tobacco Smoking Status Never Smoker Kari sumner, [facility] 07/30/2021 09:56:22 What Is Your Level Of Alcohol Consumption? Occasional [email or web address] Information not available 07/30/2021 If You Are , What Was Your Level Of Alcohol Consumption Prior To ? None Information not available 07/30/2021 Are You Blind Or Do You Have Difficulty Seeing? No [email or web address] Information n ot available 07/30/2021 What Is Your Level Of Caffeine Consumption? Occasional Information not available 07/30/2021 In The 14 Days Before Symptom Onset, Have You Had Close Contact With A Laboratory-confirm ed COVID-19 While That Case Was Ill? No [email or web address] Information n ot available 07/30/2021 In The 14 Days Before Symptom Onset, Have You Had Close Contact With A Person Who Is Under Investigation For COVID-19 While That Person Was Ill? No [email or web address] Information not available 07/30/2021 Have You Been To An Area Known To Be High Risk For COVID-19? No Information not available 07/30/2021 Are You Deaf Or Do You Have Serious Difficulty Hearing? No Information not available 07/30/2021 What Type Of Diet Are You Following? REGULAR [email or web address] Information n ot available 07/30/2021 Do You Use Your Seat Belt Or Car Seat Routinely? Yes [email or web address] Information not available 07/30/2021 Do You Have Smoke And Carbon Monoxide Detectors In Your Home? Yes [email or web address] Information not available 07/30/2021 Do You Feel Stressed (tense, Restless, Nervous, Or Anxious, Or Unable To Sleep At Night)? [id number] [email or web address] Information not available 07/30/2021 Do You Use Any Illicit Or Recreational Drugs? No [email or web address] Information not available 07/30/2021 Do You Use Sunscreen Routinely? Yes [email or web address] Information not available 07/30/2021 Has Tobacco Cessation Counseling Been Provided? No [email or web address] Information not available 07/30/2021 Do You Or Have You Ever Used Any Other Forms Of Tobacco Or Nicotine? No Information not available 07/30/2021 Sex: Unknown Functional Status Question Answer Note LastModified by Organizat ion Details LastModified Time Are you able to walk? YESWOREST [email or web address] Information not available 07/30/2021 What is your exercise level? Occasional [email or web address] Information not available 07/30/2021 Mental Status None recorded. Family History Relationship Description Onset Age of this Age Resolved Age Notes LastModified by Organization Details LastModified Time Maternal Aunt Malignant tumor of colon [email or web address] Not available 07/29 17:29:59 Maternal Aunt Heart disease [email or web address] Not available 07/29 17:30:47 Paternal Grandmother Malignant tumor of breast [email or web address] Not available 07/29 17:30:21 Maternal Grandmother Malignant tumor of breast [email or web address] Not available 07/29 17:30:21 Maternal Grandmother Malignant neoplasm of liver [email or web address] Not available 07/29 17:32:14 Mother Heart disease [email or web address] Not available 07/29 17:30:47 Mother Hypertensive disorder [email or web address] Not available 07/29 17:31:17 Maternal Uncle Heart disease [email or web address] Not available 07/29 17:30:47 Sister Hypertensive disorder [email or web address] Not available 07/29 17:31:17 Sister Diabetes mellitus [email or web address] Not available 07/29 17:31:31 Father Diabetes mellitus [email or web address] Not available 07/29 17:31:42 Father Hypertensive disorder [email or web address] Not available 07/29 17:32:24 Notes:Father: Diabetes melli [...] SNOMED-CT Code Diagnosis ICD10 Code Diagnosis Note [id number] Solange Ye CNM [facility] [address] [address] 07/30/2021 09:41:09 07/30/2021 15:54:38 Gynecologic examination 51127156 Z01.419 Dyspareunia 13332858 N94 .10 f/u pending [id number] [facility] [address] [address] 08/01/2021 16:05:54 08/01/2021 16:54:26 Dyspareunia 81115051 N94.10 [id number] ALCIDES Isaac [facility] [address] [address] 02/17/2024 10:04:57 02/17/2024 10:41:21 Gynecologic examination 55092194 Z01.419 WWEBC - BTLpap updateddec lined STI screenmamm ogram order givencolon oscopy UTDroutine labs/PCPge netic testing discussed/ fam hx reviewedBP precaution s reviewedRT C in 1 yr or sooner if needed Suggested Calcium with Vitamin D daily. Patient advised to get an annual flu shot in the fall and she could obtain at [facility] or [facility] care clinic. Also to obtain TDap [...] email. Screening for malignant neoplasm of breast 778955045 Z12.39 Health Concerns Section Related Observation LastModified by Organization Detai ls LastModified Time None Recorded Concern Status LastModified by Organization Details LastModified Time None Recorded Advance Directives Directive None Recorded Payers Encounter Date Sequence Insurance Name Policy Number Policy Castro Covered Member ID Castro Member ID Guarantor Name 07/30/2021 1 [employer] - DOS PRIOR TO 21 - [facility] [employer] [id number] Austin Mckeon [id number] OI Austin Dong 08/01/2021 1 [employer] - DOS PRIOR TO 21 - [facility] [employer] [id number] Austin Mckeon [id number] OI Austin Dong 02/17/2024 1 [employer] - [facility] [employer] [id number] Austin Dong [id number] JC Dong Notes Date Note Type Note [...] again Solange Ye CNM [address], [place], [address], [facility] 07/30/2021 10:58:55 02/17/2024 text/html Annual [...] to repeat ALCIDES Isaac [address], [place], [address], [facility] 02/17/2024 10:36:51 OBGyn Episode Ob Episode Information Episode Created Date Number of Fetuses Patient Bloodtype Patient rh Status Prepregnancy Weight lbs Domestic Partner Domestic Partner Phone Father Name [employer] Bever[employer] Out[employer] Manager Status 07/29/20 21 1 CLOSED Fetus Data First Name Last Name Admitted to NICU Weight (g) Sex Living Outcome Pediatric Complications Fetus ID Race Codes Race Delivery Type , Induced 96075 Solomon Calculation Initial Solomon Date Initial Exam [...] Domestic Partner Domestic Partner Phone Father Name [employer] And Bever[employer] Outlets Manager Status 07/29/20 21 1 CLOSED Fetus Data First Name Last Name Admitted to NICU Weight (g) Sex Living Outcome Pediatric Complications Fetus ID Race Codes Race Delivery Type 3373.36 3704 F Full Term 00928 Vaginal Delivery Solomon Calculation Initial Solomon Date [...] Domestic Partner Domestic Partner Phone Father Name Food And Beverage Outlets Manager Status 07/29/20 21 1 CLOSED Fetus Data First Name Last Name Admitted to NICU Weight (g) Sex Living Outcome Pediatric Complications Fetus ID Race Codes Race Delivery Type 3770.25 6704 M Full Term 98376 Vaginal Delivery Solomon Calculation Initial Solomon Date [...] Domestic Partner Domestic Partner Phone Father Name Food And Bever[employer] Outlets Manager Status 07/29/20 21 1 CLOSED Fetus Data First Name Last Name Admitted to NICU Weight (g) Sex Living Outcome Pediatric Complications Fetus ID Race Codes Race Delivery Type , Spontane ous 10501 Solomon Calculation Initial Solomon Date Initial Exam [...] Domestic Partner Domestic Partner Phone Father Name [employer] And Bever[employer] Outlets Manager Status 07/29/20 21 1 CLOSED Fetus Data First Name Last Name Admitted to NICU Weight (g) Sex Living Outcome Pediatric Complications Fetus ID Race Codes Race Delivery Type 4110.45 0704 M Full Term 02040 Vaginal Delivery Solomon Calculation Initial Solomon Date [...] Domestic Partner Domestic Partner Phone Father Name [employer] And Bever[employer] Outlets Manager Status 07/29/20 21 1 CLOSED Fetus Data First Name Last Name Admitted to NICU Weight (g) Sex Living Outcome Pediatric Complications Fetus ID Race Codes Race Delivery Type , Spontane ous 07549 Solomon Calculation Initial Solomon Date Initial Exam [...]
--- OUTSIDE RECORDS SUMMARY | 2025-02-12 13:26 | XMS_ITS | Data Portability ---
Author Organization [facility], Main Office Address [address] [place] [address] Assessment No assessment recorded. Plan of Treatment Reminders Order Date Submit Date Provider Last Modified By Organization Details Last Modified Time Details Appointments None recorded. Lab None recorded. Referral None recorded. Procedures None recorded. Surgeries None recorded. Imaging audiogram + tympanogram 2023 024 APOLONIA [facility], [address] [place] [address], [facility], [place], [address], 4 05:55:22 Medication Orders None recorded. Patient TargetsNo targets recorded. Patient Instructions Encounter Date Encounter Id Patient Instructions Last Modified By Organization Details Last Modified Time 09/13/2024 [id number] alia-hallpike test* APOLONIA Not available 11/08/2024 04:26:56 continue use of meclizine as needed for vertigo symptoms. She will see PT for [place]-Hallpike testing for possible BPPV. We will also obtain an audiogram and tympanogram for further testing. Not available 09/13/2024 16:04:48 Reason for Referral None Reported. Problems Name Problem SNOMED Code Status Onset Date Resolution Date Notes Provider Name and Address Organization Details Recorded Time Vertigo 406942673 Active 2023 Prince Calderon CMA null, [facility] 4 15:59:06 Sensorineural hearing loss 26454532 Active 2023 Prince Calderon CMA null, [facility] 4 16:00:48 Benign paroxysmal positional vertigo 543428343 Active 2023 HUGH Arrington [address] [facility], [facility] [address], [place], [address] , [place] [facility] 16:03:52 Problem Notes None recorded. Procedures Surgical History Date Name Laterality Status Provider Name and Address Organization Details Recorded Time 07/31/20 19 Tubal Ligation completed Prince Calderon CMA [facility] 09/13/2024 15:42:59 12/30/19 04 cholecystectomy completed Prince Calderon CMA [facility] 09/13/2024 15:42:31 Imaging Results None recorded. Procedure Notes None recorded. Medical Equipment None Reported. Allergies Allergen ID Allergen Name Allergen Category Reaction Reaction Severity Criticality Documentation Date Start Date Code Code System Note Provider Name and Address Organization Details Recorded Time 66694 Toradol medicatio n palpitati ons Not available Not available 09/12/2024 69961 RxNorm Lynn Bustamantencer [facility] 12:54:34 43914 Stadol medicatio n palpitati ons Not available Not available 09/13/2024 19613 RxNorm Prince Calderon CMA [facility] 15:38:10 Medications Name Sig Start Date [...] Address Organization Details Last Updated DateTime 09/13/2024 909496.2 g 98 [degF] 45 kg/m2 162.56 cm Prince Calderon CMA [facility] 09/13/2024 15:37:32 Social History Question Answer Notes LastModified by Organizat ion Details LastModified Time Tobacco Smoking Status Never Smoker Lynnxavier Bustamanterhoda sumner [facility] 09/12/2024 12:56:45 What Is Your Level Of Alcohol Consumption? None [email or web address] Information not available 09/12/2024 What Is Your Level Of Caffeine Consumption? Occasional Coffee [email or web address] Information not available 09/13/2024 Sex: Unknown Functional Status None recorded. Mental Status None recorded. Family History Relationship Description Onset Age of this Age Resolved Age Notes LastModified by Organization Details LastModified Time Father Diabetes mellitus [email or web address] Not available 2023 15:43:22 Father Family history of stroke [email or web address] Not available 2023 15:43:39 Mother Heart disease [email or web address] Not available 2023 15:43:46 Medical History Condition [...] HAVE YOU BEEN HOSPITALIZED OR SEEN IN [facility] ER IN THE PAST YEAR [...] SNOMED-CT Code Diagnosis ICD10 Code Diagnosis Note [id number] HUGH Arrington [facility] [address] [place] [address] 09/13/2024 15:26:45 09/13/2024 16:05:18 Benign paroxysmal positional vertigo 116765033 H81.10 Health Concerns Section Related Observation LastModified by Organization Detai ls LastModified Time None Recorded Concern Status LastModified by Organization Details LastModified Time None Recorded Advance Directives Directive None Recorded Payers Encounter Date Sequence Insurance Name Policy Number Policy Castro Covered Member ID Castro Member ID Guarantor Name 09/13/2024 1 [employer] Austin Dong [id number] Austin Dong Notes Date Note Type Note [...] also notes if she moves her head [id number] quickly this can also elicit symptoms. She also reports that when her spouse was watching football on the television the other day, this too was causing vertigo like symptoms. Bettie Ibarra, IT SECURITY PROJECT MANAGER [address] [facility], [place] [address], [place], [address], [facility] 09/13/2024 16:04:52 OBGyn Episode No OBEpisode recorded.
--- OUTSIDE RECORDS SUMMARY | 2025-02-12 13:26 | XMS_ITS | Clinical Summary ---
Author Organization [facility] Physician Office Building [address] [place] [id number] Care Team Providers Care Clinical Systems Analyst Name Role Phone Trey Shen MD Primary [...] 12/05/2024 Assessment & Plan (12/05/2024 3:05 PM RADIOLOGICAL HEALTH SPECIALIST): I counseled the patient on exercise: [...] 12/05/2024 Assessment & Plan (12/05/2024 3:57 PM RADIOLOGICAL HEALTH SPECIALIST): Patient's highest BMI was 48.6 ; initial BMI was 46.8; this has improved to 41.07 through medical management Vitamin D deficiency 09/12/2024 Assessment & Plan (12/05/2024 3:06 PM RADIOLOGICAL HEALTH SPECIALIST): Continue vitamin-D supplementation Assessment & Plan (09/12/2024 4:10 PM CDT): start vitamin-D replacement 5,000IU daily Encounter for weight loss counseling 07/11/2024 Assessment & Plan (12/05/2024 3:05 PM RADIOLOGICAL HEALTH SPECIALIST): Reviewed importance of adequate protein intake. [...] 07/11/2024 Assessment & Plan (12/05/2024 3:05 PM RADIOLOGICAL HEALTH SPECIALIST): Obesity is one of the leading [...] 03/21/2018 Assessment & Plan (12/05/2024 4:18 PM RADIOLOGICAL HEALTH SPECIALIST): Reviewed most recent labs. Continue low [...] 03/21/2018 Assessment & Plan (12/05/2024 3:05 PM RADIOLOGICAL HEALTH SPECIALIST): Continue current dose of levothyroxine. Assessment [...] Type Department Care Team Description 02/02/[address] [facility] Diabetes and Nutrition Services [facility] [address], [address] [place] [address] Nirali Sands CMA 12/05/2024 4:00 PM RADIOLOGICAL HEALTH SPECIALIST Telemedicine [facility] [address] [place] [address] [address] [place] [address] Carmela Siddiqui PA Encounter for weight loss counseling (Primary Dx); Metabolic syndrome; Obesity, Class III, BMI 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) ([facility]); Acquired hypothyroidism; Vitamin D deficiency; Encounter for exercise counseling; Body mass index 45.0-49.9, adult ([facility]) 11/15/[address] [facility] Nutrition [facility] [address] [facility] [address] [place] [address] Carmela Siddiqui PA Med Refill [...] on file Legal Sex Female 7:08 PM RADIOLOGICAL HEALTH SPECIALIST Gender Identity Not on file Sexual [...] (239 lb 6.4 oz) 12/05/2024 3:55 PM RADIOLOGICAL HEALTH SPECIALIST Height 162.6 cm (5' 4.02 ) 12/05/2024 3:55 PM CS T Body Mass Index 41.07 12/05/2024 3:55 PM RADIOLOGICAL HEALTH SPECIALIST Plan of Treatment Health Maintenance Due Date [...] patient's age to complete this topic Insurance [facility] [id number] Care Teams Clinical Systems Analyst Relationship Specialty Start Date End Date Trey Shen MD [address] [facility] [address] [facility] [address] [place] [address] PCP - General Family Medicine 03/10/18
--- OUTSIDE RECORDS SUMMARY | 2025-02-12 13:26 | XMS_ITS | Encounter Summary ---
Author Organization [facility] Address [address] [place] [address] Care Team Providers Care Compliance Spec Name Role Phone Unavailable Primary Care Provider Unavailabl e Encounter Details Date Type Department Care Team (Late st Contact Info) Description 02/08/2025 Orders Only [facility] Oncology and Hematology - [place] [address] [facility] [address] [place] [address] Neal Mena MD [address] [facility] [address] [place] [address] Social History Tobacco Use Types Packs/Day Years Used Date Smoking Tobacco: Never Smokeless Tobacco: Never Alcohol Use Standard Drinks/Week Comments Never 0 (1 standard drink = 0.6 oz pur e alcohol) Comments Unknown Sex and Gender Information Value Date Recorded Sex Assigned at Not on file Legal Sex Female 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
== END 2025-02-12 10:54 | disposition home or self-care (01) ==
PROVIDERS: PCP Family Medicine; Visit Provider Surgery
DX: C50.912 Malignant neoplasm of unspecified site of left female breast (principal); Z17.31 Human epidermal growth factor receptor 2 positive status
CPT/HCPCS: 77049; A9579; C8908

== ENCOUNTER 2025-03-24 16:16 | Emergency (ER) | payer OTHER, SELFPAY ==
[2025-03-24 16:25] VITALS: BP 131/92; PULSE 69; RESP 16; TEMP 36.6; O2SAT 99
--- NOTE | 2025-03-24 16:35 | ED.DENTAL ---
HPI - Dental/Oral General Chief complaint: Dental/Oral Stated complaint: Thrush Time Seen by Provider: 03/24/25 16:35 Source: patient Mode of arrival: ambulatory History of Present Illness HPI Narrative: 45 y/o female presented for c/o pain inside the mouth and throat. Onset last night. Endorses white patches that she has been able to scrape off. Pt states symptoms started after chemo treatment 3 days ago. Endorses similar symptoms after the previous treatment, stating she started with oral thrush then developed over 30 sores inside the mouth at that time. Pt [place]. Pt denies difficulty swallowing or maintaining secretions, cough, sob, n/v/d/f/c. MD Complaint: tooth pain Related Data Home Medications ?Medication ?Instructions ?Recorded ?Confirmed ?Last Taken ?Type ivermectin 1 % topical cream 1 applic topical DIRECTED 08/30/23 02/27/25 Unknown History (Soolantra) cholecalciferol (vitamin D3) 10 6,000 unit PO DAILY 01/25/25 02/28/25 Unknown History mcg (400 unit) chewable tablet (Vitamin D3) multivitamin (Daily Multi-Vitamin 1 tablet PO DAILY 01/25/25 02/27/25 Unknown History tablet) dexamethasone 4 mg tablet mg 03/24/25 Unknown History fluconazole 100 mg tablet mg 03/24/25 Unknown History ondansetron HCl 8 mg tablet mg 03/24/25 Unknown History valacyclovir 500 mg tablet mg 03/24/25 Unknown History Allergies Allergy/AdvReac Type Severity Reaction Status Date / Time butorphanol Allergy Intermediate Palpitation Verified 03/21/25 08:52 s egg AdvReac Intermediate Vomiting Verified 03/12/25 13:41 ketorolac AdvReac Intermediate Palpitation Verified 03/12/25 13:41 s Review of Systems Review of Systems: per HPI [facility] Past Medical History Medical History (Updated 03/24/25 @ 16:44 by Anjana Tariq APRN) Morbid obesity Rosacea Anxiety Diarrhea Otitis media Depression Hypothyroidism, unspecified Migraine without aura and without status migrainosus, not intractable Surgical History Surgical History (Updated 01/31/25 @ 06:37 by Miguel Angel Prado MD) H/O breast biopsy Family History Family History Sibling Hypertension Patient's sister is in good health, Onset Age: 38 Patient's brother is in good health, Onset Age: 33 Family history of elevated blood lipids, Onset Age: 36 Diabetes mellitus Father Hypertension Family history of elevated blood lipids, Onset Age: 57 Family history of diabetes mellitus in first degree relative, Onset Age: 57 Diabetes mellitus Mother Family history of chronic obstructive pulmonary disease Family history of coronary artery disease, Onset Age: 54 Social History Social History Smoking status: Never smoker Second hand tobacco smoke exposure: No Alcohol intake: never Substance use: never Substance use type: does not use Do You Feel Safe in your Home?: Yes Lack of Transportation: No Lack of Food: Never True Current Housing: Decline to Answer Concerned About Future Housing: Decline to Answer Difficulty Paying Gas/Electric Bills: Decline to Answer Difficulty Paying for Meds: Decline to Answer Currently Unemployed: Decline to Answer Education: Decline to Answer Difficulty w/ Childcare or Family Care: Decline to Answer Living arrangements: with family Occupation/Education: occupation Gender identity (if verbalized by the patient): Female Sexual Orientation (if Verbalized by the Patient): Straight or Heterosexual Spiritual care concerns: No Comments At time of signature, I have reviewed and agree with nursing past medical, surgical, social and family history unless otherwise noted. Please see nursing chart for further information. There is no relevant family history pertinent to the presenting complaint Exam Narrative: GENERAL: well appearing EYES: EOMI. No redness or drainage. Conjunctivae normal. ENT: Mucous membranes pink and moist; no apparent white patches or lesions, no tonsillar swelling or soft palate edema, no hoarseness or hot potato voice. TMs normal bilaterally. Throat normal. Uvula midline. NECK: Normal AROM. No lymphadenopathy. CHEST: No respiratory distress. Clear to auscultation. HEART: Regular rate and rhythm. No murmur appreciated. SKIN: Warm, dry, no rash. Normal skin turgor. NEURO: No focal deficits. Alert and oriented x3. Gait steady. Course Course Emergency Course: Patient is aware of diagnosis, understands and agrees to treatment plan. Anticipatory guidance given. Patient agrees to follow-up as directed and is aware of reasons to seek care at the emergency department. Portions of this record may have been created with voice recognition software Level of Care: Express Care Visit Vital Signs Vital signs: Vital Signs Temperature 97.9 F 03/24/25 16:25 Pulse Rate 69 03/24/25 16:25 Respiratory Rate 16 03/24/25 16:25 Blood Pressure 131/92 H 03/24/25 16:25 Pulse Oximetry 99 03/24/25 16:25 Temperature 97.9 F 03/24/25 16:25 Pulse Rate 69 03/24/25 16:25 Respiratory Rate 16 03/24/25 16:25 Blood Pressure 131/92 H 03/24/25 16:25 Pulse Oximetry 99 03/24/25 16:25 MDM - Dental/Oral MDM Narrative Medical decision making narrative: Discussed physical exam findings, no apparent lesions inside the mouth ; will send nystatin. Advised supportive measures and signs/symptoms to go to the ER. Pt is appropriate for outpt treatment and f/u. Differential Diagnosis Differential diagnosis: Likely gingival abscess, dental caries, toothache, dental abscess, fracture of tooth, aphthous ulcer and other (candidiasis, stomatitis) Discharge Plan Discharge Clinical Impression: Stomatitis Patient Disposition: Home Condition: Stable Instructions: Antibiotic Form, Oral Candidiasis (ED) Additional Instructions: Tylenol every 8 hours as needed for pain/fever Avoid foods that irritate your mouth. These may include nuts, chips, pretzels, certain spices, salty foods and acidic fruits, such as pineapple, grapefruit and oranges. Regular brushing after meals and flossing once a day can keep your mouth clean and free of foods that might trigger a sore. Use a soft brush to help prevent irritation to delicate mouth tissues, and avoid toothpastes and mouth rinses that contain sodium lauryl sulfate Soft foods, cool liquids, warm tea. Gargle with warm saltwater twice a day. Chloraseptic spray and throat lozenges. Rest and stay hydrated. Consult your doctor if you experience: ? Unusually large canker sores ? Recurring sores, with new ones developing before old ones heal, or frequent outbreaks ? Persistent sores, lasting two weeks or more ? Sores that extend into the lips themselves ? Pain that you can't control with self-care measures ? Extreme difficulty eating or drinking ? High fever along with canker sores --Follow up with your PCP --Go to the ER immediately if you cannot swallow your saliva, trouble breathing/wheezing, throat swelling, pain is persistent and severe Patient Language: Chinese Prescriptions: New nystatin 100,000 unit/mL suspension 400,000 unit PO QID 7 Days Qty: 112 0RF Rx Instructions: administer 1/2 of dose in each side of the mouth; swish and spit No Action ivermectin [Soolantra] 1 % cream 1 applic TOPICAL DIRECTED fluconazole 100 mg tablet ondansetron HCl 8 mg tablet valacyclovir 500 mg tablet dexamethasone 4 mg tablet meclizine 25 mg tablet 25 mg PO TID PRN (Reason: dizziness) 10 Days Qty: 30 0RF multivitamin [Daily Multi-Vitamin] Tablet 1 tablet PO DAILY cholecalciferol (vitamin D3) [Vitamin D3] 10 mcg (400 unit) tablet,chewable 6,000 unit PO DAILY Patient Comments: . sertraline 50 mg tablet 50 mg PO DAILY Qty: 90 1RF levothyroxine 175 mcg tablet 175 mcg PO DAILY Qty: 90 2RF Follow-up/Referrals: PHYSICIAN,AUTOMATION MACHINE BUILDER [Primary Care Provider] - Time of Disposition: 16:45
== END 2025-03-24 16:51 | disposition home or self-care (01) ==
PROVIDERS: Emergency Provider Nurse Practitioner Family
DX: K12.1 Other forms of stomatitis (principal); Z79.60 Long term (current) use of unspecified immunomodulators and immunosuppressants; E03.9 Hypothyroidism, unspecified; E66.01 Morbid (severe) obesity due to excess calories; Z68.41 Body mass index [BMI] 40.0-44.9, adult; L71.9 Rosacea, unspecified; F41.9 Anxiety disorder, unspecified; F32.A Depression, unspecified
CPT/HCPCS: 99213; G0463

== ENCOUNTER 2025-03-28 12:25 | Emergency (ER) | payer OTHER, SELFPAY ==
--- NOTE | ~2025-03-28 | CT_ITS ---
CT abdomen pelvis w con Ordering provider: Haroon Nath MD History: 45 years Female with . Rectal bleeding, abdominal pain . Comparison: None. Technique: CT abdomen and pelvis with IV and without oral contrast. Automated exposure control and it erative reconstruction technique were employed. The dose-length product was 1227.18 mGy-cm. 100 mL Om nipaque 350 was given IV. Findings: VISUALIZED LOWER CHEST: Possible very tiny 3 mm nodule in the right upper lobe seen in the first imag e. Another nodule is seen in the middle lobe measuring 3.[address] follow-up advised. Pleural base nodule is also seen in the left lower lobe measuring 3.5 mm. Another adjacent one is seen poste riorly appears smaller. UPPER ABDOMINAL ORGANS: Liver: Hepatomegaly. Gallbladder: Status post cholecystectomy Spleen: Normal. Stomach/duodenum: Normal. Pancreas: Normal. Adrenals: Normal. Kidneys: Tiny cysts in the right kidney midpole. PELVIC ORGANS: The bladder is underfilled. BOWEL AND MESENTERY: Colon: Slightly thickened wall of the colon extending from the mid transverse colon to rectum with lomas rrounding increased vascularity which may indicate ulcerative colitis. Clinical correlation and follo w-up advised.. Normal appendix. Small Bowel: Normal. No obstruction. Peritoneum/mesentery: No free air or free fluid. No mesenteric lymphadenopathy. RETROPERITONEUM: Normal aorta. No retroperitoneal lymphadenopathy. MUSCULOSKELETAL: Superficial soft tissues: Small fat-containing umbilical hernia. Otherwise, The superficial soft tiss ues are normal. Bones: Age appropriate degenerative changes of the spine. Mild bilateral sacroiliitis. IMPRESSION: 1. Minimal thickening with slightly increased vascularity of the colon on the left side which may in dicate ulcerative colitis. Other types of colitis are not excluded. Further evaluation and clinical c orrelation advised. 2. Multiple tiny nodules in the right and left lung bases. 6 months follow-up CT is advised. 3. Hepatomegaly. Reviewed, dictated and finalized at location A. IMPRESSION: 1. Minimal thickening with slightly increased vascularity of the colon on the left side which may indicate ulcerative colitis. Other types of colitis are not excluded. Further evaluation and clinical correlation advised. 2. Multiple tiny nodules in the right and left lung bases. 6 months follow-up CT is advised. 3. Hepatomegaly.
[2025-03-28 12:31] VITALS: BP 139/98; PULSE 84; RESP 18; TEMP 36.7; O2SAT 98
--- OUTSIDE RECORDS SUMMARY | 2025-03-28 13:23 | XMS_ITS | Encounter Summary ---
Author Organization [facility] Address [address] [place] [address] Care Team Providers Care Supervisor Graphite Name Role Phone Unavailable Primary Care Provider Unavailabl e Encounter Details Date Type Department Care Team (Late st Contact Info) Description 03/15/2009 Outpatient Historical [facility] [place], Authorized P NO ADDRESS ON FILE Juan Carranza MD [address] [place] [address] [phone] Social History Tobacco Use Types Packs/Day Years Used Date Smoking Tobacco: Never Assessed Comments Unknown Sex and Gender Information Value Date Recorded Sex Assigned at Not on file Legal Sex Female 5:43 AM CALL TAKER Gender Identity Not on file Sexual Orientation Not on file documented as of this encounter Plan of Treatment Upcoming Encounters Date Type Department Care Team (Late st Contact Info) Description 05/02/2025 9:00 AM CDT Office Visit [facility] Oncology and Hematology - [place] [address] [facility] [address] [place] [address] Neal Mena MD [address] [facility] [address] [place] [address] documented as of this encounter Procedures Procedure Name Priority Date/Time Associated Diagnosis Comments CBC WITH DIFFERENTIAL Stat 03/15/2009 10:24 PM CDT C-REACTIVE PROTEIN Stat 03/15/2009 10 :24 PM CDT COMPREHENSIVE METABOLIC PANEL Stat 03/15/2009 10:24 PM CDT documented in this encounter Results * C-REACTIVE PROTEIN (03/15/2009 10:24 PM CDT) Pathologist [facility] CRP 0.7 0.0 - 0.8 mg/dL [facility] Blood specimen (specimen) 03/15/2009 10:24 PM CDT 03/15/2009 10:40 PM CDT us Juan Carranza MD CHEMISTRY ORDERABLES Final Resu lt INTERFACE SYSTEM Refer to clinic/hospital department [facility] CLIA# [id number] [address] [place] [address] * (ABNORMAL) COMPREHENSIVE METABOLIC PANEL (03/15/2009 10:24 PM CDT) Pathologist [facility] CREATININE 0.60 0.51 - 0.95 mg/dL [facility] SODIUM 137 135 - 145 mmol/L [facility] ALT 12 0 - 31 U/L [facility] ALKALINE PHOSPHATASE 46 35 - 104 U/L [facility] BILIRUBIN TOTAL 0.5 0.2 - 1.0 mg/dL [facility] CO2 21(L) 22 - 30 mmol/L [facility] TOTAL PROTEIN 6.1(L) 6.3 - 8.6 g/dL [facility] POTASSIUM 3.1(L) 3.5 - 4.9 mmol/L [facility] GLUCOSE 111(H) 65 - 99 mg/dL [facility] AST 17 12 - 32 U/L [facility] BUN 6 6 - 20 mg/dL [facility] CALCIUM 8.5(L) 8.6 - 10.2 mg/dL [facility] CHLORIDE 107 96 - 108 mmol/L [facility] ALBUMIN 3.5 3.4 - 4.8 g/dL [facility] GFR, >60 >=60 mL/min/1. 7 sq meter [facility] GFR >60 >=60 mL/min/1. 7 sq meter [facility] Comment: Modification of Diet in Renal Disease (MDRD) study formula. Estimated GFR rate interpretative information for both Americans and non- Americans is available on the [facility] Intranet at: [email or web address] Select: Lab Policies and Procedures Select: Reference Ranges - GFR Blood specimen (specimen) 03/15/2009 10:24 PM CDT 03/15/2009 10:40 PM CDT Juan Carranza MD CHEMISTRY ORDERABLES Edited INTERFACE SYSTEM Refer to clinic/hospital department [facility] CLIA# [id number] [address] [place] [address] * (ABNORMAL) CBC WITH DIFFERENTIAL (03/15/2009 10:24 PM CDT) HEMOGLOBIN 10.4(L) 11.8 - 14.8 g/dL [facility] RDW 14.2 11.5 - 14.5 % [facility] WBC 10.7(H) 4.0 - 9.8 K/uL [facility] MCH 30.0 27.2 - 32.6 pg [facility] MPV 10.9 9.3 - 12.4 fL [facility] HEMATOCRIT 30.4(L) 35.5 - 44.0 % [facility] RDW-STDEV 44.5 37.1 - 48.7 fL [facility] RBC 3.47(L) 3.90 - 4.90 M/uL [facility] MCHC 34.2 31.5 - 35.5 % [facility] MCV 87.6 82.0 - 99.0 fL [facility] PLATELETS 229 140 - 350 K/uL [facility] LYMPHOCYTES 17 16 - 45 % [facility] LYMPHOCYTE ABSOLUTE 1.84 0.70 - 4.50 K/uL [facility] BASOPHILS 0 0 - 2 % [facility] BASOPHILS ABSOLUTE 0.01 0.00 - 0.20 K/uL [facility] MONOCYTES 7 3 - 13 % [facility] MONOCYTE ABSOLUTE 0.72 0.10 - 1.30 K/uL [facility] NEUTROPHILS 75(H) 45 - 70 % [facility] NEUTROPHIL ABSOLUTE 8.05(H) 1.90 - 7.00 K/uL [facility] EOSINOPHILS 1 0 - 7 % [facility] EOSINOPHIL ABSOLUTE 0.07 0.00 - 0.70 K/uL [facility] Blood specimen (specimen) 03/15/2009 10:24 PM CDT 03/15/2009 10:40 PM CDT us Juan Carranza MD HEMATOLOGY ORDERABLES Edited INTERFACE SYSTEM Refer to clinic/hospital department [facility] CLIA# [id number] [address] [place] [address] documented in this encounter Visit Diagnoses Not on filedocumented in this encounter
--- OUTSIDE RECORDS SUMMARY | 2025-03-28 13:24 | XMS_ITS | Data Portability ---
Author Organization [facility], [place] Address [address] [place] [address] [address] Care Team Providers Care Photolith Operator Name Role Phone STEFAN MCLAUGHLIN Primary Care [...] mammogram due to mass found in right [email or web address] Not available 07/30/2021 10:56:08 02/17/2024 02/17/2024 Annual [...] Imaging MAMMO, screening, digital, bilateral 2023 024 [facility], [address], [address], [place], [address], 05:01:18 US, pelvis 2020 021 [email or web address] [place], [address], [place], [address], 07:22:39 US, transvagina l 2020 021 [email or web address] [place], [address], [place], [address], 07:22:39 US, pelvis, complete 2020 [email or web address] Not [...] as clini tyrell mullins nted. Not Available [facility] (Lab) [address], [place], [address], 08/03/2021 19:24:02 02/17/20 24 02/17/2024 IMAGE GUIDE D PAP AND HPV REGAR DLESS image guided Pap, HPV regardless of Pap result SEE RESULT S BELOW CASE REPOR T: Cytol ogy Gynec ologi nas Repor t Case: [id number] Autho amy cpauto Provi cee: Arely Del Castillo, CONY Gardiner [...] as clini tyrell warra nted. Not Available [facility] (Lab) [address], [place], [address], 02/22/2024 15:56:44 08/01/2008/01/2021 US, trans quan al No observ ation record ed. [facility] [address], [place], [address], 08/05/2021 17:01:44 08/01/20 21 08/01/2021 , earlene amezquita No observ ation record ed. [facility] [address], [place], [address], 08/01/2021 17:08:35 08/01/2008/01/2021 US, emanuel glass al No observ ation record ed. [facility] [address], [place], [address], 08/01/2021 17:08:44 Result Notes None recorded. Problems Name Problem SNOMED Code Status Onset Date Resolution Date Notes Provider Name and Address Organization Details Recorded Time Pregnanc y test negative 080958307 Completed 201707/29/2021 Encounte r for pregnanc y test, result negative ;Practic e ID: 0001 Kari sumner [facility] 17:16:18 Finding of menstrua l bleeding Completed 201707/29/2021 Excessiv e and frequent menstrua tion with regular cycle;Pr actice ID: 0001 Kari Najera [facility] 17:15:23 Finding of pattern of menstrua l cycle 604922421 Completed 201707/29/2021 Excessiv e and frequent menstrua tion with irregula r cycle;Pr actice ID: 0001 Kari sumner [facility] 17:15:25 Finding of regulari ty of menstrua l cycle Completed 201707/29/2021 Irregula r menstrua tion, unspecif ied;Prac julian ID: 0001 Kari Najera [facility] 17:15:27 Female genitali a finding Completed 201707/29/2021 Foreign body in vulva and vagina, sequela; Practice ID: 0001 Kari sumner [facility] 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 17:16:11 Pain in female genitali a Completed 201707/29/2021 Dysmenor xander, unspecif ied;Prac julian ID: 0001 Kari sumner [facility] 08/31/202 1 17:15:19 Steriliz ation procedur e Completed 201707/29/2021 Encounte r for steriliz ation;Pr actice ID: 0001 Kari sumner [facility] 17:16:36 Procedur e on genitour inary system Completed 201707/29/2021 Encounte r for surgical aftcr followin g surgery on the sys;Prac julian ID: 0001 Kari sumner [facility] 17:16:20 Postoper ative care Completed 201707/29/2021 Encounte r for surgical aftcr followin g surgery on the sys;Prac julian ID: 0001 Kari sumner [facility] 17:16:15 Urinary tract infectio us disease 71723743 Completed 201807/29/2021 Urinary tract infectio n, site not specifie d;Practi ce ID: 0001 [facility]16:[address] Concept Completed 201807/29/2021 Encntr for cena exam (general ) (routine ) w/o abn findings ;Practic e ID: 0001 Kari sumner [facility] 17:16:32 Screenin g for malignan t neoplasm of rectum Completed 201807/29/2021 Encounte r for screenin g for malignan t neoplasm of rectum;P ractice ID: 0001 Kari sumner [facility] 17:16:28 Right lower quadrant pain 667900854 Completed 201607/29/2021 Right lower quadrant pain;Pra ctice ID: 0001 Kari sumner [facility] 17:16:24 Pelvic and perineal pain 873072255 Completed 201607/29/2021 Pelvic and perineal pain;Pra ctice ID: 0001 Kari sumner, [facility] 17:16:12 Hypothyr oidism 76928089 Completed 201607/29/2021 Hypothyr oidism, unspecif ied;Prac julian ID: 0001 Kari Najera [facility], [facility] 17:15:57 Depressi ve disorder 15611948 Completed 201607/29/2021 Major depressi ve disorder , single episode, unspecif ied;Prac julian ID: 0001 Kari Najera [facility], [facility] 17:15:09 Acute vaginiti s 91672873 Completed 201607/29/2021 Acute vaginiti s;Practi ce ID: 0001 Kari Najera [facility], [facility] 17:14:[address] Concept Completed 201607/29/2021 Encntr for general adult medical exam w/o abnormal findings ;Recorde d Elsewher e: No Locat ion: [facility] S ource: EHR Knock Out Hand lzu: N Practi ce ID: 0001 Petr lable Time: 09:30:00 AM Kari Najera [facility] 17:16:30 Clinical finding Completed 201507/29/2021 Presence of (intraut erine) contrace ptive device;R ecorded Elsewher e: No Locat ion: [facility] S ource: EHR Knock Out Hand luz: N Practi ce ID: 0001 Petr lable Time: 12:45:00 PM Kari Najera [facility] 17:14:38 Evaluati on finding Completed 201807/29/2021 Hematuri a, unspecif ied;Toni rded Elsewher e: No [facility]at ion[facility] Vicentati ce ID: 0001 Petr lable Time: 08:15:00 AM Kari sumner, [facility] 17:15:14 Insertio n of intraute rine contrace ptive device Completed 201507/29/2021 Encounte r for insertio n of intraute rine contrace ptive device;R ecorded Elsewher e: No [facility]at ion: [facility] Practi ce ID: 0001 Petr lable Time: 12:45:00 PM Kari sumner, [facility] 17:16:02 Increase d frequenc y of urinatio n 341021644 Completed 201307/29/2021 Urinary frequenc y;Record ed Elsewher e: No Locat ion: [facility] Vicentati ce ID: 0001 Petr lable Time: 02:00:00 PM Kari sumner, [facility] 17:15:59 Lesion of ovary Completed 201607/29/2021 Other ovarian cyst, right side;Rec orded Elsewher e: No Locat ion: [facility] N Viecntati ce ID: 0001 Petr lable Time: 01:30:00 PM Kari sumner [facility] 17:14:55 Clinical finding Completed 201607/29/2021 Obesity, unspecif ied;Toni rded Elsewher e: No Locat ion: [facility] Practi ce ID: 0001 Petr lable Time: 01:45:00 PM Kari sumner [facility] 17:15:29 Speciali zed medical examinat ion Completed 201207/29/2021 Gynecolo gical Examinat ion;Toni rded Elsewher e: No Locat ion: [facility] S ource: EHR Knock Out Hand luz: N Practi ce ID: 0001 Petr lable Time: 03:00:00 PM Kari Najera taisha, [facility] 17:16:34 Speciali zed medical examinat ion Completed 201108/15/2012 Gynecolo gical Examinat ion;Toni rded Elsewher e: No Locat ion: [facility] S ource: EHR Knock Out Hand luz: N Practi ce ID: 0001 Petr lable Time: 11:30:00 AM Kari Najera [facility], [facility] 17:16:34 Dysfunct ional uterine bleeding Completed 201008/15/2012 Other disorder s of menstrua tion and other abnormal bleeding from female genital tract;Re corded Elsewher e: No Locat ion: [facility] Practi ce ID: 0001 Petr lable Time: 03:30:00 PM Kari Najera [facility] 17:15:12 Breast lump [id number] Completed 201307/29/2021 Breast Lump Or Mass;Rec orded Elsewher e: No Locat ion: [facility] Y Vicentati ce ID: 0001 Petr lable Time: 04:30:00 PM Kari Najera [facility], [facility] 17:14:35 Removal of intraute rine device Completed 201607/29/2021 Encounte r for removal of intraute rine contrace ptive device;R ecorded Elsewher e: No Locat ion: [facility] Practi ce ID: 0001 Petr lable Time: 08:45:00 AM Kari sumner [facility] 17:16:22 Adult health examinat ion Completed 201307/29/2021 ROUTINE MEDICAL EXAM;Rec orded Elsewher e: No Locat ion: [facility] S ource: EHR Knock Out Hand luz: N Practi ce ID: 0001 Petr lable Time: 02:00:00 PM Kari sumner [facility] 17:14:08 Cyst of ovary Completed 201607/29/2021 Unspecif ied ovarian cyst, unspecif ied side;Rec orded Elsewher e: No Locat ion: [facility] S ource: EHR Knock Out Hand luz: N Practi ce ID: 0001 Petr lable Time: 01:30:00 PM Kari sumner [facility] 17:14:40 Dysfunct ional uterine bleeding Completed 201007/29/2021 DUB;Prac julian ID: 0001 Kari Najera [facility], [facility] 17:15:12 Nausea 246571711 Completed 201007/29/2021 Nausea alone;Pr actice ID: 0001 Kari Najera [facility] 17:16:08 Screenin g for malignan t neoplasm of cervix Completed 201107/29/2021 Pap Smear;Pr actice ID: 0001 Kari Najera [facility], [facility] 17:16:26 Malaise and fatigue 831646555 Completed 201207/29/2021 Fatigue And Malaise; Practice ID: 0001 Kari Najera [facility] 17:16:04 Female genital organ symptoms 452197911 Completed 201207/29/2021 Unspecif ied symptom associat ed with female genital organs;P ractice ID: 0001 Kari sumner [facility] 17:15:17 Microsco pic hematuri a [id number] Completed 201507/29/2021 Other microsco pic hematuri a;Practi ce ID: 0001 Kari Contrerastz [facility], [facility] 17:16:06 Surveill ance of contrace ption Completed 201507/29/2021 Encounte r for surveill ance of contrace ptives, unspecif ied;Prac julian ID: 0001 Kari Najera [facility] 17:16:38 Problem Notes None recorded. Procedures Surgical History Date Name Laterality Status Provider Name and Address Organization Details Recorded Time 07/30/20 21 Date of Last Pap Smear completed [facility] 07/30/2021 09:55:09 07/30/20 18 Tubal Ligation completed [facility] 07/29/2021 17:34:29 02/29/20 18 endometrial biopsy completed [facility] 07/29/2021 17:33:40 08/15/20 12 Breast Biopsy completed [facility] 07/29/2021 17:32:59 12/30/19 03 cholecystectomy completed [facility] 07/29/2021 17:34:42 11/29/19 02 Colposcopy completed [facility] 07/29/2021 17:20:03 Imaging Results Imaging Date Name Status LastModified by Organization Details LastModified Time 08/01/2021 US, transvaginal completed [address], [place], [address], 08/05/2021 17:01:44 08/01/2021 US, pelvis completed joz[address], [place], [address], 08/01/2021 17:08:35 08/01/2021 , transvaginal completed jozef [address], [place], [address], 08/01/2021 17:08:44 Procedure Notes None recorded. Medical Equipment None Reported. Allergies Allergen ID Allergen Name Allergen Category Reaction Reaction Severity Criticality Documentation Date Start Date Code Code System Note Provider Name and Address Organization Details Recorded Time 82449 ketorolac medicatio n Not available Not available Not available 07/30/2021 45070 RxNorm Kari Najera [facility] 09:54:01 Medications Name Sig Start Date [...] Prescrib ed Elsewher e: Yes Loca tion: [facility] odify By: efraín gee DateTime : 10/29/20 11 03:30:00 PM Not Available Not Available Not Available doxycycli ne hyclate 50 mg capsule take 1 capsule by oral route every 12 hours 02/07 completed Prescrib ed Elsewher e: Yes Loca tion: [facility] odify By: mike armendariz DateTime : 04/13/20 16 01:00:00 PM Not Available Not Available Not Available Pyridium 200 mg tablet take 1 tablet by oral route 3 times every day after meals 03/14/ 2019 09/01 /2021 completed Prescrib ed Elsewher e: No Locat ion: [facility] odify By: lbillhar tz Encou nter [...] Prescrib ed Elsewher e: No Locat ion: [facility] odify By: mike jianguntjessica DateTime : 12/17/19 02:43:41 PM Not Available Not Available Not Available Soma 350 mg tablet take 1 tablet by oral route 3 times every day and at bedtime 04/13 completed Prescrib ed Elsewher e: No Locat ion: [facility] odify By: daryl delgado DateTime : [...] Prescrib ed Elsewher e: No Locat ion: [facility] odify By: andrew [address] ncounter DateTime : 02/14/20 09:38:29 AM Not Available Not Available Not Available nystatin 100,000 unit/gram topical cream 02/16 completed Not Available Not Available Not Available Synthroid 88 mcg tablet take 1 tablet by oral route every day 04/13 completed Prescrib ed Elsewher e: Yes Loca tion: [facility] odify By: daryl delgado DateTime : 09/20/20 14 02:00:00 PM Not Available Not Available Not Available Synthroid 50 mcg tablet take 1 tablet by oral route every day 02/16 completed Prescrib ed Elsewher e: Yes Loca tion: [facility] odify By: mike armendariz DateTime : 04/20/20 16 03:15:00 PM Not Available Not Available Not Available Adipex-P 37.5 mg capsule take 1 capsule by oral route every day before breakfas t 09/20 completed Prescrib ed Elsewher e: Yes Loca tion: [facility] odify By: efraín gee DateTime : 03/15/20 14 04:30:00 PM Not Available Not Available Not Available Vitamin D2 1,250 mcg (50,000 unit) capsule take 1 capsule (84337NQ ITS) by oral route every week 03/15 completed Prescrib ed Elsewher e: No Locat ion: [facility] odify By: isabel jianguntjessica DateTime : [...] ed Elsewher e: No Locat ion: [facility] odify By: andrew armendariz DateTime : 02/10/20 19 08:15:00 AM Not Available Not Available Not Available Wellbutri n XL 300 mg 24 hr tablet, extended release take 1 tablet by oral route every day 02/07 completed Prescrib ed Elsewher e: No Locat ion: [facility] odify By: mike armendariz DateTime : [...] Prescrib ed Elsewher e: No Locat ion: [facility] odify By: mike Alvarez ncounter DateTime : 02/08/20 18 01:45:00 PM Not Available Not Available Not Available Lo Loestrin Fe 1 mg-10 mcg (24)/10 mcg (2) tablet take 1 tablet by oral route every day 01/04 completed Prescrib ed Elsewher e: No Locat ion: [facility] odify By: mike Alvarez ncounter DateTime [...] Updated DateTime 07/30/2021 161.93 cm 46.7 kg/m2 404766.9 4 g 127 mm[Hg] 84 mm[Hg] Kari Najera [facility] 09:53:20 Date Recorded Body height Body mass index (BMI) Body weight Systolic blood pressure Diastolic blood pressure Provider Name and Address Organization Details Last Updated DateTime 02/17/2024 160.02 cm 45.5 kg/m2 852712.2 4 g 136 mm[Hg] 91 mm[Hg] Sabi Roca [facility] 4 10:12:21 Social History Question Answer Notes LastModified by Organizat ion Details LastModified Time Tobacco Smoking Status Never Smoker Kari sumner, [facility] 07/30/2021 09:56:22 What Is Your Level Of Alcohol Consumption? Occasional [email or web address] Information not available 07/30/2021 If You Are , What Was Your Level Of Alcohol Consumption Prior To ? None [email or web address] Information not available 07/30/2021 Are You Blind Or Do You Have Difficulty Seeing? No Information n ot available 07/30/2021 What Is Your Level Of Caffeine Consumption? Occasional Information not available 07/30/2021 In The 14 Days Before Symptom Onset, Have You Had Close Contact With A Laboratory-confirm ed COVID-19 While That Case Was Ill? No [email or web address] Information n ot available 07/30/2021 In The 14 Days Before Symptom Onset, Have You Had Close Contact With A Person Who Is Under Investigation For COVID-19 While That Person Was Ill? No [email or web address] Information not available 07/30/2021 Have You Been To An Area Known To Be High Risk For COVID-19? No [email or web address] Information not available 07/30/2021 Are You Deaf Or Do You Have Serious Difficulty Hearing? No [email or web address] Information not available 07/30/2021 What Type Of Diet Are You Following? REGULAR [email or web address] Information n ot available 07/30/2021 Do You Use Your Seat Belt Or Car Seat Routinely? Yes [email or web address] Information not available 07/30/2021 Do You Have Smoke And Carbon Monoxide Detectors In Your Home? Yes [email or web address] Information not available 07/30/2021 Do You Feel Stressed (tense, Restless, Nervous, Or Anxious, Or Unable To Sleep At Night)? [id number] [email or web address] Information not available 07/30/2021 Do You Use Any Illicit Or Recreational Drugs? No [email or web address] Information not available 07/30/2021 Do You Use Sunscreen Routinely? Yes [email or web address] Information not available 07/30/2021 Has Tobacco Cessation Counseling Been Provided? No [email or web address] Information not available 07/30/2021 Do You Or Have You Ever Used Any Other Forms Of Tobacco Or Nicotine? No [email or web address] Information not available 07/30/2021 Sex: Unknown Functional Status Question Answer Note LastModified by Organizat ion Details LastModified Time Are you able to walk? YESWOREST [email or web address] Information not available 07/30/2021 What is your exercise level? Occasional [email or web address] Information not available 07/30/2021 Mental Status None recorded. Family History Relationship Description Onset Age of this Age Resolved Age Notes LastModified by Organization Details LastModified Time Maternal Aunt Malignant tumor of colon Not available 07/29 17:29:59 Maternal Aunt Heart disease [email or web address] Not available 07/29 17:30:47 Paternal Grandmother Malignant tumor of breast [email or web address] Not available 07/29 17:30:21 Maternal Grandmother Malignant tumor of breast Not available 07/29 17:30:21 Maternal Grandmother Malignant neoplasm of liver [email or web address] Not available 07/29 17:32:14 Mother Heart disease [email or web address] Not available 07/29 17:30:47 Mother Hypertensive disorder [email or web address] Not available 07/29 17:31:17 Maternal Uncle Heart disease Not available 07/29 17:30:47 Sister Hypertensive disorder [email or web address] Not available 07/29 17:31:17 Sister Diabetes mellitus [email or web address] Not available 07/29 17:31:31 Father Diabetes mellitus Not available 07/29 17:31:42 Father Hypertensive disorder [email or web address] Not available 07/29 17:32:24 Notes:Father: Diabetes melli tus, Hypertension Maternal aunt: Cancer, colon Maternal aunts x 3: heart disease Maternal grandfather: Hypertension, cancer, liver Maternal grandmother: Cancer, breast Maternal uncle: heart disease Mother: Hypertension, heart disease Paternal grandfather: Diabetes mellitus Paternal grandmother: Cancer, breast Sister: Hypertension, Diabetes mellitus Medical History Condition Response Allergies (Food, seasonal, environmental ) N Other Y Blood Transfusion N Drug/Latex Allergies/Reactions Y Breast Cancer N Dermatologic Disorders N Lung [...] SNOMED-CT Code Diagnosis ICD10 Code Diagnosis Note [id number] Solange Ye CNM [place] [address] [address] 07/30/2021 09:41:09 07/30/2021 15:54:38 Gynecologic examination 27637658 Z01.419 Dyspareunia 28227576 N94 .10 f/u pending [id number] Austen Macario MD [place] [address] [address] 08/01/2021 16:05:54 08/01/2021 16:54:26 Dyspareunia 30702834 N94.10 [id number] ALCIDES Isaac [place] [address] [address] 02/17/2024 10:04:57 02/17/2024 10:41:21 Gynecologic examination 44245879 Z01.419 WWEB - BTLpap updateddec lined STI screenmamm ogram order givencolon oscopy UTDroutine labs/PCPge netic testing discussed/ fam hx reviewedBP precaution s reviewedRT C in 1 yr or sooner if needed Suggested Calcium with Vitamin D daily. Patient advised to get an annual flu shot in the fall and she could obtain at [facility] or [facility] clinic. Also to obtain TDap vaccinatio n [...] email. Screening for malignant neoplasm of breast 379311804 Z12.39 Health Concerns Section Related Observation LastModified by Organization Detai ls LastModified Time None Recorded Concern Status LastModified by Organization Details LastModified Time None Recorded Advance Directives Directive None Recorded Payers Encounter Date Sequence Insurance Name Policy Number Policy Castro Covered Member ID Castro Member ID Guarantor Name 07/30/2021 1 [employer] - DOS PRIOR TO 21 - [facility] BENEFITS PLAN [id number] Austin Mckeon [id number] OI Austin Dong 08/01/2021 1 [employer] - DOS PRIOR TO 21 - [facility] BENEFITS PLAN [id number] Austin Mckeon [id number] OI Austin Dong 02/17/2024 1 [employer] - [facility] BENEFITS PLAN [id number] Austin Dong [id number] OI Austin Dong Notes Date Note Type Note [...] again Solange Ye CNM [address], [place], [address], [facility] 07/30/2021 10:58:55 02/17/2024 text/html Annual GYNReport [...] to repeat ALCIDES Isaac [address], [place], [address], [facility] 02/17/2024 10:36:51 OBGyn Episode Ob Episode Information Episode Created Date Number of Fetuses Patient Bloodtype Patient rh Status Prepregnancy Weight lbs Domestic Partner Domestic Partner Phone Father Name Title Processor Status 08/31/20 21 1 CLOSED Fetus Data First Name Last Name Admitted to NICU Weight (g) Sex Living Outcome Pediatric Complications Fetus ID Race Codes Race Delivery Type , Induced 33263 Solomon Calculation Initial Solomon Date Initial Exam [...] Domestic Partner Domestic Partner Phone Father Name Title Processor Status 07/29/20 21 1 CLOSED Fetus Data First Name Last Name Admitted to NICU Weight (g) Sex Living Outcome Pediatric Complications Fetus ID Race Codes Race Delivery Type 3373.36 3704 F Full Term 40794 Vaginal Delivery Solomon Calculation Initial Solomon Date [...] Domestic Partner Domestic Partner Phone Father Name Title Processor Status 07/29/20 21 1 CLOSED Fetus Data First Name Last Name Admitted to NICU Weight (g) Sex Living Outcome Pediatric Complications Fetus ID Race Codes Race Delivery Type 3770.25 6704 M Full Term 24473 Vaginal Delivery Solomon Calculation Initial Solomon Date [...] Discharge Date Comments 9 38 hypoglyc e aksah Discharge Information Feeding Method Contraceptive Method Maternal HG B and HCT Levels Ob Episode Information Episode Created Date Number of Fetuses Patient Bloodtype Patient rh Status Prepregnancy Weight lbs Domestic Partner Domestic Partner Phone Father Name Title Processor Status 07/29/20 21 1 CLOSED Fetus Data First Name Last Name Admitted to NICU Weight (g) Sex Living Outcome Pediatric Complications Fetus ID Race Codes Race Delivery Type , Spontane ous 10023 Solomon Calculation Initial Solomon Date Initial Exam [...] Domestic Partner Domestic Partner Phone Father Name Title Processor Status 07/29/20 21 1 CLOSED Fetus Data First Name Last Name Admitted to NICU Weight (g) Sex Living Outcome Pediatric Complications Fetus ID Race Codes Race Delivery Type 4110.45 0704 M Full Term [id number] Vaginal Delivery Solomon Calculation Initial Solomon Date [...] Domestic Partner Domestic Partner Phone Father Name Title Processor Status 07/29/20 21 1 CLOSED Fetus Data First Name Last Name Admitted to NICU Weight (g) Sex Living Outcome Pediatric Complications Fetus ID Race Codes Race Delivery Type , Spontane ous [id number] Solomon Calculation Initial Solomon Date Initial Exam [...]
--- OUTSIDE RECORDS SUMMARY | 2025-03-28 13:24 | XMS_ITS | Data Portability ---
Author Organization [employer], Main Office Address [address] [place] [address] Assessment No assessment recorded. Plan of Treatment Reminders Order Date Submit Date Provider Last Modified By Organization Details Last Modified Time Details Appointments None recorded. Lab None recorded. Referral None recorded. Procedures None recorded. Surgeries None recorded. Imaging audiogram + tympanogram 2023 024 [email or web address] 42 [facility], [address] [place] [address], [facility], [place], [address], 5 17:21:49 Medication Orders None recorded. Patient TargetsNo targets recorded. Patient Instructions Encounter Date Encounter Id Patient Instructions Last Modified By Organization Details Last Modified Time 09/13/2024 [id number] alia-hallpike [email or web address]* [email or web address] Not available 03/12/2025 08:32:13 continue use of meclizine as needed for vertigo symptoms. She will see PT for Alia-Hallpike testing for possible BPPV. We will also obtain an audiogram and tympanogram for further testing. [email or web address] Not available 09/13/2024 16:04:48 Reason for Referral None Reported. Problems Name Problem SNOMED Code Status Onset Date Resolution Date Notes Provider Name and Address Organization Details Recorded Time Vertigo 442830694 Active 2023 Prince Calderon CMA null, [facility] 15:59:06 Sensorineural hearing loss 70299293 Active 2023 Prince Calderon CMA null, [employer] 16:00:48 Benign paroxysmal positional vertigo 483297266 Active 2023 Bettie Ibarra, HUGH [address] [facility], [facility] [address], [place], [address] , [facility] [employer] [facility] 16:03:52 Problem Notes None recorded. Procedures Surgical History Date Name Laterality Status Provider Name and Address Organization Details Recorded Time 07/31/20 19 Tubal Ligation completed Prince Calderon CMA [facility] [employer] [facility] 09/13/2024 15:42:59 12/30/19 04 cholecystectomy completed Prince Calderon CMA [facility] [employer] [facility] 09/13/2024 15:42:31 Imaging Results None recorded. Procedure Notes None recorded. Medical Equipment None Reported. Allergies Allergen ID Allergen Name Allergen Category Reaction Reaction Severity Criticality Documentation Date Start Date Code Code System Note Provider Name and Address Organization Details Recorded Time 48145 Toradol medicatio n palpitati ons Not available Not available 09/12/2024 52645 RxNorm Lynn Carter [facility] [employer] [facility] 12:54:34 95243 Stadol medicatio n palpitati ons Not available Not available 09/13/2024 05991 RxNorm Prince Calderon [facility] [employer] [facility] 15:38:10 Medications Name Sig Start Date Stop [...] Address Organization Details Last Updated DateTime 09/13/2024 072735.2 g 98 [degF] 45 kg/m2 162.56 cm Prince Calderon CMA [employer] 09/13/2024 15:37:32 Social History Question Answer Notes LastModified by Organizat ion Details LastModified Time Tobacco Smoking Status Never Smoker Ylnn Raul [email or web address] 09/12/2024 12:56:45 What Is Your Level Of Alcohol Consumption? None [email or web address] Information not available 09/12/2024 What Is Your Level Of Caffeine Consumption? Occasional Coffee [email or web address] Information not available 09/13/2024 Sex: Unknown Functional Status None recorded. Mental Status None recorded. Family History Relationship Description Onset Age of this Age Resolved Age Notes LastModified by Organization Details LastModified Time Father Diabetes mellitus Not available 2023 15:43:22 Father Family history of stroke [email or web address] Not available 2023 15:43:39 Mother Heart disease [...] HAVE YOU BEEN HOSPITALIZED OR SEEN IN [facility] ER IN THE PAST YEAR ? [...] SPECIFY N TOURETTE'S N BLOOD TRANSFUSION N ANEMIA/BLOOD DISORDER N ANESTHESIA COMPLICATIONS N CHRONIC EAR INFECTIONS N ATRIAL FIBRILLATION N AUTOIMMUNE DISEASE N TUBERCULOSIS N Gynecological HistoryNo gynecological history recorded. Obstetrics History GPAL:G 0 P 0 0 0 0 Past Encounters Encounter ID Performer Location Encounter Start Date Encounter Closed Date Diagnosis/Indication Diagnosis SNOMED-CT Code Diagnosis ICD10 Code Diagnosis Note [id number] Dave Webb MD [facility] [place] [address] [place] [address] 09/13/2024 15:26:45 09/13/2024 16:05:18 Benign paroxysmal positional vertigo 688168546 H81.10 Health Concerns Section Related Observation LastModified by Organization Detai ls LastModified Time None Recorded Concern Status LastModified by Organization Details LastModified Time None Recorded Advance Directives Directive None Recorded Payers Encounter Date Sequence Insurance Name Policy Number Policy Castro Covered Member ID Castro Member ID Guarantor Name 09/13/2024 1 [employer] - OPEN ACCESS Austin Dong [id number] Austin Dong Notes Date Note Type Note [...] also notes if she moves her head [id number] quickly this can also elicit symptoms. She also reports that when her spouse was watching football on the television the other day, this too was causing vertigo like symptoms. Bettie Ibarra, MEDICAL CARE EVALUATION SPECIALIST [address] [facility], [facility] [address], [place], [address], [facility] 09/13/2024 16:04:52 OBGyn Episode No OBEpisode recorded.
--- OUTSIDE RECORDS SUMMARY | 2025-03-28 13:24 | XMS_ITS | Encounter Summary ---
Author Organization [facility] [id number] [facility] Address [address] [place] [address] Care Team Providers Care Supercharger Mechanic Name Role Phone Unavailable Primary Care Provider Unavailabl e Reason for Visit * Reason Onset Date Comments Blood In Stool 03/28/2025 Encounter Details Date Type Department Care Team (Late st Contact Info) Description 03/28/2025 Telephone [facility] Oncology and Hematology - [place] [address] [facility] [address] [place] [address] Neal Mena MD [address] [facility] [address] [place] [address] Blood In Stool Social History Tobacco Use Types Packs/Day Years Used Date Smoking Tobacco: Never Smokeless Tobacco: Never Alcohol Use Standard Drinks/Week Comments Never 0 (1 standard drink = 0.6 oz pur e alcohol) Comments Unknown Sex and Gender Information Value Date Recorded Sex Assigned at Not on file Legal Sex Female 5:43 AM CLIENT SERVICES COORDINATOR Gender Identity Not on file Sexual Orientation Not on file documented as of this encounter Miscellaneous Notes * Telephone Encounter - Yarelis Pierson - 03/28/2025 10:02 AM CDT Patient called this morning and left a message stating that she has been having diarrhea since starting chemotherapy but last night about 11 pm she went to the bathroom and noticed that there was blood on the toilet paper. She also noticed that there was blood in the toilet bowl. She got herself cleaned up. About 20 minutes later she had to go again, but this time she did not notice blood at all.She said that she went to bed and this morning when she got up about 6:30 am she had to go to the bathroom again. She said that it was diarrhea again and that again she noticed that there was blood in the toilet bowl and that it was on the toilet paper again. After speaking with Dr. Mena he wouldlike patient to go the ER for further evaluation. Patient verbalized understanding with no further questions at this time. documented in this encounter Plan of Treatment Upcoming Encounters Date Type Department Care Team (Late st Contact Info) Description 05/02/2025 9:00 AM CDT Office Visit [facility] Oncology and Hematology - [place] [address] [place] [address] [facility] [address] [place] [address] Neal Mena MD [address] [facility] [address] [place] [address] documented as of this encounter Visit Diagnoses Not on filedocumented in this encounter
--- OUTSIDE RECORDS SUMMARY | 2025-03-28 13:24 | XMS_ITS | Encounter Summary ---
Author Organization [facility] Address [address] [place] [address] Care Team Providers Care Tandem Mill Operator Name Role Phone Unavailable Primary Care Provider Unavailabl e Encounter Details Date Type Department Care Team (Late Contact Info) Description 03/21/2025 Orders Only [facility] Oncology and Hematology [place] [address] [place] [address] [facility] [address] [place] [address] Social History Tobacco Use Types Packs/Day Years Used Date Smoking Tobacco: Never Smokeless Tobacco: Never Alcohol Use Standard Drinks/Week Comments Never 0 (1 standard drink = 0.6 oz pur e alcohol) Comments Unknown Sex and Gender Information Value Date Recorded Sex Assigned at Not on file Legal Sex Female 5:43 AM SHEET FINISHER Gender Identity Not on file Sexual Orientation Not on file documented as of this encounter Plan of Treatment Upcoming Encounters Date Type Department Care Team (Late st Contact Info) Description 05/02/2025 9:00 AM CDT Office Visit [facility] Oncology and Hematology - [place] [address] [place] [address] [facility] [employer] [address] [place] [address] documented as of this encounter Procedures Procedure Name Priority Date/Time Associated Diagnosis Comments BASIC METABOLIC PANEL Routine 03/21/2025 12:56 PM CDT COMPREHENSIVE METABOLIC PANEL Routine 03/21/2025 11:55 AM CDT documented in this encounter Results * BASIC METABOLIC PANEL (03/21/2025 12:56 PM CDT) Blood us Neal Mena MD CHEMISTRY ORDERABLES Final Resu lt * COMPREHENSIVE METABOLIC PANEL (03/21/2025 11:55 AM CDT) Blood us Neal Mena MD CHEMISTRY ORDERABLES Final Resu lt documented in this encounter Visit Diagnoses Not on filedocumented in this encounter
--- OUTSIDE RECORDS SUMMARY | 2025-03-28 13:24 | XMS_ITS | Clinical Summary ---
Author Organization [facility] Physician Office Building [address] [place] [address] Care Team Providers Care Automotive Parts Interpreter Name Role Phone Trey Shen MD Primary [...] 12/05/2024 Assessment & Plan (12/05/2024 3:05 PM LOG DATA TECHNICIAN): I counseled the patient on exercise: [...] 12/05/2024 Assessment & Plan (12/05/2024 3:57 PM LOG DATA TECHNICIAN): Patient's highest BMI was 48.6 ; initial BMI was 46.8; this has improved to 41.07 through medical management Vitamin D deficiency 09/12/2024 Assessment & Plan (12/05/2024 3:06 PM LOG DATA TECHNICIAN): Continue vitamin-D supplementation Assessment & Plan (09/12/2024 4:10 PM CDT): start vitamin-D replacement 5,000IU daily Encounter for weight loss counseling 07/11/2024 Assessment & Plan (12/05/2024 3:05 PM LOG DATA TECHNICIAN): Reviewed importance of adequate protein intake. [...] 07/11/2024 Assessment & Plan (12/05/2024 3:05 PM LOG DATA TECHNICIAN): Obesity is one of the leading [...] 03/21/2018 Assessment & Plan (12/05/2024 4:18 PM LOG DATA TECHNICIAN): Reviewed most recent labs. Continue low [...] 03/21/2018 Assessment & Plan (12/05/2024 3:05 PM LOG DATA TECHNICIAN): Continue current dose of levothyroxine. Assessment [...] Type Department Care Team Description 02/02/2025 Telephone [facility] Metabolic Weight Management [address] [facility] Medical Office [address], [address] [place] [address] Nirali Sands CMA from Last 3 Months Surgical History Surgery [...] on file Legal Sex Female 7:08 PM LOG DATA TECHNICIAN Gender Identity Not on file Sexual [...] (239 lb 6.4 oz) 12/05/2024 3:55 PM LOG DATA TECHNICIAN Height 162.6 cm (5' 4.02 ) 12/05/2024 3:55 PM CS T Body Mass Index 41.07 12/05/2024 3:55 PM LOG DATA TECHNICIAN Plan of Treatment Health Maintenance Due Date Last Done Comments Breast Cancer Screening-Mammogram 1978 Cervical Cancer Screening 1978 Colon Cancer Screening-Colonoscopy 1978 Hepatitis C Screening 1978 DTaP/Tdap/Td Vaccine (1 - Tdap) 1989 Hepatitis B Screening 02/05/1996 Regular Well Visit/Exam 18-64 02/05/1996 Depression Screening 03/21/2019 03/21/2018 Covid-19 Vaccine (2 - 2023-2 5 season) 2024 03/07/2021 Influenza Vaccine (Season Ended) 2025 Pneumococcal vaccine <65 Aged Out No longer eligible based on patient's age to complete this topic Insurance [facility] [id number] Care Teams Automotive Parts Interpreter Relationship Specialty Start Date End Date Trey Shen MD [address] [facility] [address] [facility] [address] [place] [address] PCP - General Family Medicine 03/10/18
--- OUTSIDE RECORDS SUMMARY | 2025-03-28 13:24 | XMS_ITS | Encounter Summary ---
Author Organization [facility] [facility] Address [address] [place] [address] Care Team Providers Care Flame Cutting Machine Operator Name Role Phone Unavailable Primary Care Provider Unavailabl e Encounter Details Date Type Department Care Team (Late Contact Info) Description 03/26/2025 Orders Only [facility] Oncology and Hematology [facility] [address] [place] [address] Neal Mena MD [facility] [place] [address] [place] [address] Malignant neoplasm of upper-outer quadrant of left breast in female, estrogen receptor positive (CMS/HCC) Social History Tobacco Use Types Packs/Day Years Used Date Smoking Tobacco: Never Smokeless Tobacco: Never Alcohol Use Standard Drinks/Week Comments Never 0 (1 standard drink = 0.6 oz pur e alcohol) Comments Unknown Sex and Gender Information Value Date Recorded Sex Assigned at Not on file Legal Sex Female 5:43 AM CAP JEWEL PLATE ASSEMBLER Gender Identity Not on file Sexual Orientation Not on file documented as of this encounter Plan of Treatment Upcoming Encounters Date Type Department Care Team (Late st Contact Info) Description 05/02/2025 9:00 AM CDT Office Visit [facility] Oncology and Hematology [place] [address] [place] [address] Neal Mena MD [address] [place] [address] [place] [address] documented as of this encounter Procedures Procedure Name Priority Date/Time Associated Diagnosis Comments CANCER ANTIGEN 15-3 Routine 03/21/2025 11:46 AM CDT documented in this encounter Results * CANCER ANTIGEN 15-3 (03/21/2025 11:46 AM CDT) Blood Neal Mena MD CHEMISTRY ORDERABLES Final Resu lt documented in this encounter Visit Diagnoses Diagnosis Malignant neoplasm of upper-outer quadrant of left breast in female, estrogen receptor positive (CMS/HCC) documented in this encounter
--- OUTSIDE RECORDS SUMMARY | 2025-03-28 13:24 | XMS_ITS | Referral Summary ---
Author Organization [facility] Physician Office Building [address] [place] [address] Care Team Providers Care Associate Chemist Name Role Phone Trey Shen MD Primary Care Provider Encounters Date Type Department Care Team Description 02/02/2025 Telephone [facility] Metabolic Weight Management [address] [facility] Medical Office [address], [address] [place] [address] Nirali Sands, HEDGE FUND PRINCIPAL from Last 3 Months Allergies Active Allergy [...] 12/05/2024 Assessment & Plan (12/05/2024 3:05 PM WELDER RAILCAR MECHANIC): I counseled the patient on exercise: Recommend [...] 12/05/2024 Assessment & Plan (12/05/2024 3:57 PM WELDER RAILCAR MECHANIC): Patient's highest BMI was 48.6 ; initial BMI was 46.8; this has improved to 41.07 through medical management Vitamin D deficiency 09/12/2024 Assessment & Plan (12/05/2024 3:06 PM WELDER RAILCAR MECHANIC): Continue vitamin-D supplementation Assessment & Plan (09/12/2024 4:10 PM CDT): start vitamin-D replacement 5,000IU daily Encounter for weight loss counseling 07/11/2024 Assessment & Plan (12/05/2024 3:05 PM WELDER RAILCAR MECHANIC): Reviewed importance of adequate protein intake. Reviewed [...] 07/11/2024 Assessment & Plan (12/05/2024 3:05 PM WELDER RAILCAR MECHANIC): Obesity is one of the leading risk [...] 03/21/2018 Assessment & Plan (12/05/2024 4:18 PM WELDER RAILCAR MECHANIC): Reviewed most recent labs. Continue low carb, [...] 03/21/2018 Assessment & Plan (12/05/2024 3:05 PM WELDER RAILCAR MECHANIC): Continue current dose of levothyroxine. Assessment & [...] on file Legal Sex Female 7:08 PM WELDER RAILCAR MECHANIC Gender Identity Not on file Sexual Orientation [...] (239 lb 6.4 oz) 12/05/2024 3:55 PM WELDER RAILCAR MECHANIC Height 162.6 cm (5' 4.02 ) 12/05/2024 3:55 PM CS T Body Mass Index 41.07 12/05/2024 3:55 PM WELDER RAILCAR MECHANIC Plan of Treatment Not on file [facility] [id number] Care Teams Associate Chemist Relationship Specialty Start Date End Date Trey Shen MD [address] [place] [address] PCP - General Family Medicine 03/10/18
--- OUTSIDE RECORDS SUMMARY | 2025-03-28 13:24 | XMS_ITS | Clinical Summary ---
Author Organization [facility] Vj Rubi Address [address] [place] [address] Care Team Providers Care Confectionery Laboratory Manager Name Role Phone Unavailable Primary Care Provider Unavailabl e Allergies Active Allergy Reactions Criticality Noted Date Comments Ketorolac Hypertension Medium 02/02/2025 Tachycardia Medications levothyroxine 175 mcg tablet Take 1 Tablet by mouth daily. 5 Active traMADoL (ULTRAM) 50 mg tablet [...] administration instructions. 30 Gram 1 5 Active dexAMETHasone (DECADRON) 4 mg tabletIndicati ons:Malignant neoplasm of upper-outer quadrant of left breast in female, estrogen receptor positive (CMS/HCC) Take 2 tablets by mouth BID day before, day of, and day after treatment with Docetaxel. 12 Tablet 4 5 Active valACYclovir (VALTREX) 500 mg tablet Take 1 Tablet (500 mg) by mouth daily. 14 Tablet 5 Active fluconazole (DIFLUCAN) 100 mg tablet Take 1 Tablet (100 mg) by mouth daily. 5 Tablet 5 Active Active Problems No known active problems Encounters Date Type Department Care Team Description 03/28/2025 Telephone [facility] Oncology and Hematology - [place] [address] [place] [id number] Neal Mena MD Blood In Stool 03/26/2025 Telephone [facility] Oncology and Hematology - [place] [address] [place] [address] Lelia Garcia MD Thrush 03/26/2025 Orders Only [facility] Oncology and Hematology - [place] [address] [place] [address] Neal Mena MD Malignant neoplasm of upper-outer quadrant of left breast in female, estrogen receptor positive (CMS/HCC) 03/21/2025 9:00 AM CDT Office Visit [facility] Oncology and Hematology - [place] [address] [place] [address] Lelia Garcia MD Malignant neoplasm of upper-outer quadrant of left breast in female, estrogen receptor positive (CMS/HCC) (Primary Dx) 03/21/2025 Orders Only [facility] Oncology and Hematology - [place] [address] [place] [id number] Neal Mena MD 03/19/2025 Orders Only [facility] Oncology and Hematology - [place] [address] [place] [address] Neal Mena MD Malignant neoplasm of upper-outer quadrant of left breast in female, estrogen receptor positive (CMS/HCC) (Primary Dx) 03/13/2025 External Device Data STL ABSTRACTION Provider, Abstract 03/12/2025 Telephone [facility] Oncology and Hematology - [place] [address] [place] [address] Neal Mena MD mouth sores 03/12/2025 Orders Only [facility] Oncology and Hematology - [place] [address] [place] [address] Neal Mena MD Malignant neoplasm of upper-outer quadrant of left breast in female, estrogen receptor positive (CMS/HCC) 03/09/2025 Abstract [facility] Oncology and Hematology - [place] [address] [place] [address] Neal Mena MD 03/01/2025 Abstract [facility] Oncology and Hematology - [place] [address] [place] [id number] Neal Mena MD 02/28/2025 Orders Only [facility] Oncology and Hematology - [place] [address] [place] [phone] Neal Mena MD 02/27/2025 Orders Only [facility] Oncology and Hematology - [place] [address] [place] [address] Neal Mena MD Malignant neoplasm of upper-outer quadrant of left breast in female, estrogen receptor positive (CMS/HCC) (Primary Dx) 02/27/2025 Orders Only [facility] Oncology and Hematology - [place] [address] [place] [address] Neal Mena MD Malignant neoplasm of upper-outer quadrant of left breast in female, estrogen receptor positive (CMS/HCC) (Primary Dx) 02/26/2025 Refill [facility] Oncology and Hematology - [place] [address] [place] [address] Neal Mena MD Malignant neoplasm of upper-outer quadrant of left breast in female, estrogen receptor positive (CMS/HCC) (Primary Dx) 02/14/2025 External Device Data STL ABSTRACTION Provider, Abstract 02/13/2025 External Device Data STL ABSTRACTION Provider, Abstract 02/08/2025 Orders Only [facility] Oncology and Hematology - [place] [address] [place] [address] Neal Mena MD 02/05/2025 External Device Data STL ABSTRACTION Provider, Abstract 02/02/2025 2:00 PM BELL NECK HAMMERER Office Visit [facility] Oncology and Hematology - [place] [address] [place] [address] Neal Mena MD Malignant neoplasm [...] Date Smoking Tobacco: Never Smokeless Tobacco: Never Tobacco Cessation:Counseling Given: Not Answered Alcohol Use Standard Drinks/Week Comments Never 0 (1 standard drink = 0.6 oz pur e alcohol) Comments Unknown Sex and Gender Information Value Date Recorded Sex Assigned at Not on file Legal Sex Female 5:43 AM BELL NECK HAMMERER Gender Identity Not on file Sexual Orientation Not on file Last Filed Vital Signs Vital Sign Reading Time Taken Comments Blood Pressure 134/83 03/21/2025 8:56 AM CDT Pulse 80 03/21/2025 8:56 AM CDT Temperature 36 C (96.8 F) 03/21/2025 8:56 AM CDT Respiratory Rate 16 03/21/2025 8:56 AM CDT Oxygen Saturation 97% 03/21/2025 8:56 AM CDT Inhaled Oxygen Concentration - - Weight 110 kg (242 lb 9.6 oz) 03/21/2025 8:56 AM CDT Height 162.6 cm (5' 4 ) 02/02/2025 1:46 PM BELL NECK HAMMERER Body Mass Index 41.64 02/02/2025 1:46 PM BELL NECK HAMMERER Plan of Treatment Upcoming Encounters Date Type Department Care Team (Late st Contact Info) Description 05/02/2025 9:00 AM CDT Office Visit [facility] Oncology and Hematology [place] [address] [place] [address] Neal Mena MD [address] [facility] [address] [place] [address] Health Maintenance Due Date Last Done Comments Pre-Diabetes and Diabetes Screening 1978 DTAP/TDAP/TD VACCINES (1 - Tdap) 1997 HEPATITIS B VACCINES (1 of 3 - 19+ 3-dose series) 07/1997 HPV/Cotest (21-29) 1999 HPV/Cotest (30-65) 02/05/2008 BREAST CANCER SCREENING 2018 COLORECTAL SCREENING 2023 Colorectal Cancer Screening 2023 FIT-DNA Q 3 years 2023 FIT/FOBT Q 1 year 2023 Flex Sig/CT Colonography Q 5 years 2023 INFLUENZA VACCINE (#1) 2024 Preventative Visit- Commercial 11/29/2024 CERVICAL CANCER SCREENING 02/16/2027 PAP SMEAR 02/16/2027 02/17/2024 Procedures Procedure Name Priority Date/Time Associated Diagnosis Comments BASIC METABOLIC PANEL Routine 03/21/2025 12:56 PM CDT COMPREHENSIVE METABOLIC PANEL Routine 03/21/2025 11:55 AM CDT CANCER ANTIGEN 15-3 Routine 03/21/2025 1 1:46 AM CDT CBC MIXED CELL DIFFERENTIAL Routine 02/27/2025 3:58 PM CDT COMPREHENSIVE METABOLIC PANEL Routine 02/27/2025 8:01 AM CDT ECHO COMPLETE Routine 02/07/2025 11:13 AM CDT from Last 3 Months Results * BASIC METABOLIC PANEL (03/21/2025 12:56 PM CDT) Blood us Neal Mena MD CHEMISTRY ORDERABLES Final Resu lt * COMPREHENSIVE METABOLIC PANEL (03/21/2025 11:55 AM CDT) Only the most recent of2 resultswithin the time period is included. Blood us Neal Mena MD CHEMISTRY ORDERABLES Final Resu lt * CANCER ANTIGEN 15-3 (03/21/2025 11:46 AM CDT) Blood Neal Mena MD CHEMISTRY ORDERABLES Final Resu lt * CBC MIXED CELL DIFFERENTIAL (02/27/2025 3:58 PM CDT) Blood Neal Mena MD HEMATOLOGY ORDERABLES Final Res ult * ECHO COMPLETE (02/07/2025 11:13 AM CDT) Neal Mena MD ECHO ORDERABLES Final Result from Last 3 Months Insurance [facility] [employer]
[2025-03-28 15:44] VITALS: BP 134/97; PULSE 70; RESP 20; O2SAT 98
[2025-03-28 15:52] LABS: Basophils Percent Auto 1.2 % (0.2-1.2); Eosinophils Absolute Auto 0.1 K/mm3 (0-0.3); Hematocrit 36.9 % (37.0-47.0); Hemoglobin 12.2 g/dL (12.0-15.0); Immature Granulocyte Absolute 0.02 K/mm3 (0.00-0.031); Immature Granulocyte Percent A 0.8 % (0-0.5); Lymphocytes Absolute Auto 1.68 K/mm3 (0.9-3.2); Lymphocytes Percent Auto 66.4 % (18.3-44.2); Mean Corpuscular HGB Conc 33.1 g/dl (32-36); Mean Corpuscular Hemoglobin 30.9 pg (26-34); Mean Corpuscular Volume 93.4 fl (80-100); Mean Platelet Volume 10.6 fl (7.4-10.4); Monocytes Absolute Auto 0.2 K/mm3 (0.1-0.6); Monocytes Percent Auto 8.7 % (2.6-8.5); Neutrophils Absolute Auto 0.5 K/mm3 (1.3-6.7); Neutrophils Percent Auto 20.9 % (45.5-73.1); Platelet Count Result 260 k/mm3 (150-375); Red Blood Count 3.95 M/mm3 (4.2-5.4); Red Cell Distribution Width 12.7 % (11.5-14.5); White Blood Count 2.5 K/mm3 (4.5-10.0)
[2025-03-28 16:03] LABS: Add Urine Microscopic? YES; Appearance Urine Clear (Clear); Bacteria Urine None Seen /hpf; Bilirubin Urine Negative (Negative); Blood Urine Negative (Negative); Color Urine Yellow (Yellow); Glucose Urine UA Negative (Negative); Ketones Urine Negative (Negative); Leukocyte Esterase Ur Negative LEU/UL (Negative); Nitrate Urine Negative (Negative); Protein Urine Trace mg/dL (Negative); RBC Urine 0-2 /hpf (0-2); Specific Grav Ur 1.023 (1.001-1.035); Squamous Epithelial Cell Urine None Seen /hpf (Few); Urobilinogen Urine 0.2 mg/dL (<2.0); WBC Urine 0-5 /hpf (0-3)
[2025-03-28 16:06] LABS: Alanine Aminotransferase 30 U/L (6-35); Albumin Level 4.1 g/dL (3.5-5.1); Alkaline Phosphatase 62 U/L (38-126); Anion Gap 7 mmol/L (4-12); Aspartate Amino Transferase 24 U/L (14-36); Bilirubin,Total 1.1 mg/dL (0.2-1.3); Blood Urea Nitrogen 13 mg/dL (7-17); Calcium 8.9 mg/dL (8.4-10.2); Carbon Dioxide 26 mmol/L (22-30); Chloride 103 mmol/L (98-107); Estimated CRCL calculation 93 ml/min; Estimated Glomerular Filt Rate > 60; Glucose 94 mg/dL (65-110); Lipase 111 U/L (23-300); Potassium 4.1 mmol/L (3.4-5.0); Sodium 136 mmol/L (137-145)
[2025-03-28 16:08] LABS: Lactic Acid Reflex 1.1 mmol/L (0.7-2.0)
[2025-03-28] MEDS: SODIUM CHLORIDE 0.9% IV 1,000 ML 999 ML IV CONT (16:09)
[2025-03-28] MEDS: ONDANSETRON INJ 4 MG/2 ML VIAL IV PUSH (16:09)
[2025-03-28 16:18] LABS: Troponin I < 0.012 ng/mL (0.000-0.034)
[2025-03-28 16:20] LABS: Prothrombin Time 13.6 Seconds (11.1-14.7)
[2025-03-28 16:22] LABS: Partial Thromboplastin Time 26.3 Seconds (22.3-36.8)
--- OUTSIDE RECORDS SUMMARY | 2025-03-28 16:29 | XMS_ITS | Referral Summary ---
Author Organization [facility] Physician Office [facility] [address] [place] [address] Care Team Providers Care Concrete Spreader Name Role Phone Trey Shen MD Primary Care Provider Encounters Date Type Department Care Team Description 02/02/2025 Telephone [facility] Metabolic Weight Management [address] [facility] Medical Office [address], [address] [place] [address] Nirali Sands, SALESPERSON HOSIERY from Last 3 Months Allergies Active Allergy [...] 12/05/2024 Assessment & Plan (12/05/2024 3:05 PM INDEPENDENT JEWELER): I counseled the patient on exercise: Recommend [...] 12/05/2024 Assessment & Plan (12/05/2024 3:57 PM INDEPENDENT JEWELER): Patient's highest BMI was 48.6 ; initial BMI was 46.8; this has improved to 41.07 through medical management Vitamin D deficiency 09/12/2024 Assessment & Plan (12/05/2024 3:06 PM INDEPENDENT JEWELER): Continue vitamin-D supplementation Assessment & Plan (09/12/2024 4:10 PM CDT): start vitamin-D replacement 5,000IU daily Encounter for weight loss counseling 07/11/2024 Assessment & Plan (12/05/2024 3:05 PM INDEPENDENT JEWELER): Reviewed importance of adequate protein intake. Reviewed [...] 07/11/2024 Assessment & Plan (12/05/2024 3:05 PM INDEPENDENT JEWELER): Obesity is one of the leading risk [...] 03/21/2018 Assessment & Plan (12/05/2024 4:18 PM INDEPENDENT JEWELER): Reviewed most recent labs. Continue low carb, [...] 03/21/2018 Assessment & Plan (12/05/2024 3:05 PM INDEPENDENT JEWELER): Continue current dose of levothyroxine. Assessment & [...] on file Legal Sex Female 7:08 PM INDEPENDENT JEWELER Gender Identity Not on file Sexual Orientation [...] (239 lb 6.4 oz) 12/05/2024 3:55 PM INDEPENDENT JEWELER Height 162.6 cm (5' 4.02 ) 12/05/2024 3:55 PM CS T Body Mass Index 41.07 12/05/2024 3:55 PM INDEPENDENT JEWELER Plan of Treatment Not on file Insurance [facility] [employer] [facility] [id number] Care Teams Concrete Spreader Relationship Specialty Start Date End Date Trey Shen MD [address] [place] [address] PCP - General Family Medicine 03/10/18
--- OUTSIDE RECORDS SUMMARY | 2025-03-28 16:29 | XMS_ITS | Encounter Summary ---
Author Organization [facility] [employer] [facility] Address [address] [place] [address] Care Team Providers Care Quarter Inspector Name Role Phone Unavailable Primary Care Provider Unavailabl e Reason for Visit * Reason Onset Date Comments Blood In Stool 03/28/2025 Encounter Details Date Type Department Care Team (Late st Contact Info) Description 03/28/2025 Telephone [facility] Oncology and Hematology - [place] [address] [facility] [address] [place] [address] Neal Mena MD [address] [facility] [address] [place] [address] Blood In Stool Social History Tobacco Use Types Packs/Day Years Used Date Smoking Tobacco: Never Smokeless Tobacco: Never Alcohol Use Standard Drinks/Week Comments Never 0 (1 standard drink = 0.6 oz pur e alcohol) Comments Unknown Sex and Gender Information Value Date Recorded Sex Assigned at Not on file Legal Sex Female 5:43 AM PORTFOLIO LEAD Gender Identity Not on file Sexual Orientation [...] Description 05/02/2025 9:00 AM CDT Office Visit [facility] Oncology and Hematology - [place] [address] [place] [address] [facility] [address] [place] [address] Neal Mena MD [address] [facility] [address] [place] [address] documented as of this encounter Visit Diagnoses Not on filedocumented in this encounter
--- OUTSIDE RECORDS SUMMARY | 2025-03-28 16:29 | XMS_ITS | Encounter Summary ---
Author Organization [facility] Address [address] [place] [address] Care Team Providers Care Provider Relations Consultant Name Role Phone Unavailable Primary Care Provider Unavailabl e Encounter Details Date Type Department Care Team (Late st Contact Info) Description 03/15/2009 Outpatient Historical [facility] [place], Authorized P NO ADDRESS ON FILE Juan Carranza MD [address] [place] [phone] Social History Tobacco Use Types Packs/Day Years Used Date Smoking Tobacco: Never Assessed Comments Unknown Sex and Gender Information Value Date Recorded Sex Assigned at Not on file Legal Sex Female 5:43 AM BUYER Gender Identity Not on file Sexual Orientation Not on file documented as of this encounter Plan of Treatment Upcoming Encounters Date Type Department Care Team (Late st Contact Info) Description 05/02/2025 9:00 AM CDT Office Visit [facility] Oncology and Hematology - [place] [address] [email or web address] [address] [place] [address] Neal Mena MD [address] [facility] [address] [place] [address] documented as of this encounter Procedures Procedure Name Priority Date/Time Associated Diagnosis Comments CBC WITH DIFFERENTIAL Stat 03/15/2009 10:24 PM CDT C-REACTIVE PROTEIN Stat 03/15/2009 10 :24 PM CDT COMPREHENSIVE METABOLIC PANEL Stat 03/15/2009 10:24 PM CDT documented in this encounter Results * C-REACTIVE PROTEIN (03/15/2009 10:24 PM CDT) Pathologist [facility] CRP 0.7 0.0 - 0.8 mg/dL [facility] Blood specimen (specimen) 03/15/2009 10:24 PM CDT 03/15/2009 10:40 PM CDT us Juan Carranza MD CHEMISTRY ORDERABLES Final Resu lt INTERFACE SYSTEM Refer to clinic/hospital department [facility] CLIA# [id number] [address] [place] [address] * (ABNORMAL) COMPREHENSIVE METABOLIC PANEL (03/15/2009 10:24 PM CDT) Pathologist [facility] CREATININE 0.60 0.51 - 0.95 mg/dL [facility] SODIUM 137 135 - 145 mmol/L [facility] ALT 12 0 - 31 U/L [facility] ALKALINE PHOSPHATASE 46 35 - 104 U/L [facility] BILIRUBIN TOTAL 0.5 0.2 - 1.0 mg/dL [facility] CO2 21(L) 22 - 30 mmol/L [facility] TOTAL PROTEIN 6.1(L) 6.3 - 8.6 g/dL [facility] POTASSIUM 3.1(L) 3.5 - 4.9 mmol/L [facility] GLUCOSE 111(H) 65 - 99 mg/dL [facility] AST 17 12 - 32 U/L [facility] BUN 6 6 - 20 mg/dL [facility] CALCIUM 8.5(L) 8.6 - 10.2 mg/dL [facility] CHLORIDE 107 96 - 108 mmol/L [facility] ALBUMIN 3.5 3.4 - 4.8 g/dL [facility] GFR, >60 >=60 mL/min/1. 7 sq meter [facility] GFR >60 >=60 mL/min/1. 7 sq meter [facility] Comment: Modification of Diet in Renal Disease (MDRD) study formula. Estimated GFR rate interpretative information for both Americans and non- Americans is available on the [facility] Intranet at: [email or web address] Select: Lab Policies and Procedures Select: Reference Ranges - GFR Blood specimen (specimen) 03/15/2009 10:24 PM CDT 03/15/2009 10:40 PM CDT Juan Carranza MD CHEMISTRY ORDERABLES Edited INTERFACE SYSTEM Refer to clinic/hospital department [facility] CLIA# [id number] [address] [place] [address] * (ABNORMAL) CBC WITH DIFFERENTIAL (03/15/2009 10:24 PM CDT) HEMOGLOBIN 10.4(L) 11.8 - 14.8 g/dL [facility] RDW 14.2 11.5 - 14.5 % [facility] WBC 10.7(H) 4.0 - 9.8 K/uL [facility] MCH 30.0 27.2 - 32.6 pg [facility] MPV 10.9 9.3 - 12.4 fL [facility] HEMATOCRIT 30.4(L) 35.5 - 44.0 % [facility] RDW-STDEV 44.5 37.1 - 48.7 fL [facility] RBC 3.47(L) 3.90 - 4.90 M/uL [facility] MCHC 34.2 31.5 - 35.5 % [facility] MCV 87.6 82.0 - 99.0 fL [facility] PLATELETS 229 140 - 350 K/uL [facility] LYMPHOCYTES 17 16 - 45 % [facility] LYMPHOCYTE ABSOLUTE 1.84 0.70 - 4.50 K/uL [facility] BASOPHILS 0 0 - 2 % [facility] BASOPHILS ABSOLUTE 0.01 0.00 - 0.20 K/uL [facility] MONOCYTES 7 3 - 13 % [facility] MONOCYTE ABSOLUTE 0.72 0.10 - 1.30 K/uL [facility] NEUTROPHILS 75(H) 45 - 70 % [facility] NEUTROPHIL ABSOLUTE 8.05(H) 1.90 - 7.00 K/uL [facility] EOSINOPHILS 1 0 - 7 % [facility] EOSINOPHIL ABSOLUTE 0.07 0.00 - 0.70 K/uL [facility] Blood specimen (specimen) 03/15/2009 10:24 PM CDT 03/15/2009 10:40 PM CDT us Juan Carranza MD HEMATOLOGY ORDERABLES Edited INTERFACE SYSTEM Refer to clinic/hospital department [facility] CLIA# [id number] [address] [place] [place] [address] documented in this encounter Visit Diagnoses Not on filedocumented in this encounter
--- OUTSIDE RECORDS SUMMARY | 2025-03-28 16:29 | XMS_ITS | Encounter Summary ---
Author Organization [facility] [employer] [facility] Address [address] [place] [address] Care Team Providers Care Guest Service Supervisor Name Role Phone Unavailable Primary Care Provider Unavailabl e Encounter Details Date Type Department Care Team (Late Contact Info) Description 03/21/2025 Orders Only [facility] Oncology and Hematology [place] [address] [place] [address] Neal Mena MD [facility] [employer] [address] [place] [address] Social History Tobacco Use Types Packs/Day Years Used Date Smoking Tobacco: Never Smokeless Tobacco: Never Alcohol Use Standard Drinks/Week Comments Never 0 (1 standard drink = 0.6 oz pur e alcohol) Comments Unknown Sex and Gender Information Value Date Recorded Sex Assigned at Not on file Legal Sex Female 5:43 AM UI UX DEVELOPER Gender Identity Not on file Sexual Orientation Not on file documented as of this encounter Plan of Treatment Upcoming Encounters Date Type Department Care Team (Late st Contact Info) Description 05/02/2025 9:00 AM CDT Office Visit [facility] Oncology and Hematology - [place] [address] [place] [address] Neal Mena MD [facility] [address] [place] [address] documented as of this encounter [...]
--- OUTSIDE RECORDS SUMMARY | 2025-03-28 16:29 | XMS_ITS | Encounter Summary ---
Author Organization [facility] [employer] [facility] Address [address] [place] [address] Care Team Providers Care Mold Changer Name Role Phone Unavailable Primary Care Provider Unavailabl e Encounter Details Date Type Department Care Team (Late Contact Info) Description 03/26/2025 Orders Only [facility] Oncology and Hematology [facility] [address] [place] [address] Neal Mena MD [facility] [employer] [address] [place] [address] Malignant neoplasm of upper-outer quadrant of [...] on file Legal Sex Female 5:43 AM ARCHITECTURAL MODELER Gender Identity Not on file Sexual Orientation Not on file documented as of this encounter Plan of Treatment Upcoming Encounters Date Type Department Care Team (Late st Contact Info) Description 05/02/2025 9:00 AM CDT Office Visit [facility] Oncology and Hematology [place] [address] [place] [address] Neal Mena MD [address] [facility] [address] [place] [address] documented as of this encounter Procedures [...]
--- OUTSIDE RECORDS SUMMARY | 2025-03-28 16:29 | XMS_ITS | Clinical Summary ---
Author Organization [facility] [address] Address [address] [place] [address] Care Team Providers Care Brim Ironer Hand Name Role Phone Unavailable Primary Care Provider [...] Type Department Care Team Description 03/28/2025 Telephone [facility] - [place] [address] [place] [id number] Neal Mena MD Blood In Stool 03/26/2025 Telephone [facility] - [place] [address] [place] [address] Lelia Garcia MD Thrush 03/26/2025 Orders Only [facility] - [place] [address] [place] [address] Neal Mena MD Malignant neoplasm of upper-outer quadrant of left breast in female, estrogen receptor positive (CMS/HCC) 03/21/2025 9:00 AM CDT Office Visit [facility] - [place] [address] [place] [address] Lelia Garcia MD Malignant neoplasm of upper-outer quadrant of left breast in female, estrogen receptor positive (CMS/HCC) (Primary Dx) 03/21/2025 Orders Only [facility] - [place] [address] [place] [id number] Neal Mena MD 03/19/2025 Orders Only [facility] - [place] [address] [place] [address] Neal Mena MD Malignant neoplasm of upper-outer quadrant of left breast in female, estrogen receptor positive (CMS/HCC) (Primary Dx) 03/13/2025 External Device Data STL ABSTRACTION Provider, Abstract 03/12/2025 Telephone [facility] - [place] [address] [place] [address] Neal Mena MD mouth sores 03/12/2025 Orders Only [facility] - [place] [address] [place] [address] Neal Mena MD Malignant neoplasm of upper-outer quadrant of left breast in female, estrogen receptor positive (CMS/HCC) 03/09/2025 Abstract [facility] - [place] [address] [place] [phone] Neal Mena MD 03/01/2025 Abstract [facility] - [place] [address] [place] [id number] Neal Mena MD 02/28/2025 Orders Only [facility] - [place] [address] [place] [id number] Neal Mena MD 02/27/2025 Orders Only [facility] - [place] [address] [place] [address] Neal Mena MD Malignant neoplasm of upper-outer quadrant of left breast in female, estrogen receptor positive (CMS/HCC) (Primary Dx) 02/27/2025 Orders Only [facility] - [place] [address] [place] [address] Neal Mena MD Malignant neoplasm of upper-outer quadrant of left breast in female, estrogen receptor positive (CMS/HCC) (Primary Dx) 02/26/2025 Refill [facility] - [place] [address] [place] [phone] Neal Mena MD Malignant neoplasm of upper-outer quadrant of left breast in female, estrogen receptor positive (CMS/HCC) (Primary Dx) 02/14/2025 External Device Data STL ABSTRACTION Provider, Abstract 02/13/2025 External Device Data STL ABSTRACTION Provider, Abstract 02/08/2025 Orders Only [facility] - [place] [address] [place] [address] Neal Mena MD 02/05/2025 External Device Data STL ABSTRACTION Provider, Abstract 02/02/2025 2:00 PM SLASHER MACHINE OPERATOR Office Visit [facility] - [place] [address] [place] [address] Neal Mena MD Malignant neoplasm [...] on file Legal Sex Female 5:43 AM SLASHER MACHINE OPERATOR Gender Identity Not on file Sexual [...] cm (5' 4 ) 02/02/2025 1:46 PM SLASHER MACHINE OPERATOR Body Mass Index 41.64 02/02/2025 1:46 PM SLASHER MACHINE OPERATOR Plan of Treatment Upcoming Encounters Date Type Department Care Team (Late st Contact Info) Description 05/02/2025 9:00 AM CDT Office Visit [facility] [place] [address] [place] [address] Neal Mena MD [address] [facility] [address] [place] [address] Health Maintenance Due Date Last [...] Final Result from Last 3 Months Insurance [facility] [employer]
--- OUTSIDE RECORDS SUMMARY | 2025-03-28 16:30 | XMS_ITS | Clinical Summary ---
Author Organization [facility] [address] [place] [address] Care Team Providers Care Product Design Specialist Name Role Phone Trey Shen MD Primary [...] 12/05/2024 Assessment & Plan (12/05/2024 3:05 PM DELIVERY ASSOCIATE): I counseled the patient on exercise: Recommend [...] 12/05/2024 Assessment & Plan (12/05/2024 3:57 PM DELIVERY ASSOCIATE): Patient's highest BMI was 48.6 ; initial BMI was 46.8; this has improved to 41.07 through medical management Vitamin D deficiency 09/12/2024 Assessment & Plan (12/05/2024 3:06 PM DELIVERY ASSOCIATE): Continue vitamin-D supplementation Assessment & Plan (09/12/2024 4:10 PM CDT): start vitamin-D replacement 5,000IU daily Encounter for weight loss counseling 07/11/2024 Assessment & Plan (12/05/2024 3:05 PM DELIVERY ASSOCIATE): Reviewed importance of adequate protein intake. Reviewed [...] 07/11/2024 Assessment & Plan (12/05/2024 3:05 PM DELIVERY ASSOCIATE): Obesity is one of the leading risk [...] 03/21/2018 Assessment & Plan (12/05/2024 4:18 PM DELIVERY ASSOCIATE): Reviewed most recent labs. Continue low carb, [...] 03/21/2018 Assessment & Plan (12/05/2024 3:05 PM DELIVERY ASSOCIATE): Continue current dose of levothyroxine. Assessment & [...] Type Department Care Team Description 02/02/2025 Telephone [facility] Metabolic Weight Management [address] [facility] [address], [address] [place] [address] Nirali Sands CMA from Last [...] on file Legal Sex Female 7:08 PM DELIVERY ASSOCIATE Gender Identity Not on file Sexual Orientation [...] (239 lb 6.4 oz) 12/05/2024 3:55 PM DELIVERY ASSOCIATE Height 162.6 cm (5' 4.02 ) 12/05/2024 3:55 PM CS T Body Mass Index 41.07 12/05/2024 3:55 PM DELIVERY ASSOCIATE Plan of Treatment Health Maintenance Due Date [...] patient's age to complete this topic Insurance [facility] [id number] Care Teams Product Design Specialist Relationship Specialty Start Date End Date Trey Shen MD [id number] [facility] [address] [place] [address] PCP - General Family Medicine 03/10/18
[2025-03-28 16:44] LABS: Procalcitonin 0.1 ng/mL
--- NOTE | 2025-03-28 17:41 | ED_ITS ---
HPI - General Adult General Chief complaint: GI Bleed Stated complaint: rectal bleeding Time Seen by Provider: 03/28/25 15:20 History of Present Illness HPI narrative: Patient is a 45-year-old female who presents emergency department with chief complaint of bright red blood and diarrhea. Patient reports he has prior history of IBS reports he has some discomfort in her left lower quadrant. Patient reports she is currently undergoing chemotherapy with last infusion about 7 days ago for breast cancer. Related Data Home Medications ?Medication ?Instructions ?Recorded ?Confirmed ?Last Taken ?Type ivermectin 1 % topical cream 1 applic topical DIRECTED 08/30/23 02/27/25 Unknown History (Soolantra) cholecalciferol (vitamin D3) 10 6,000 unit PO DAILY 01/25/25 02/28/25 Unknown History mcg (400 unit) chewable tablet (Vitamin D3) multivitamin (Daily Multi-Vitamin 1 tablet PO DAILY 01/25/25 02/27/25 Unknown History tablet) dexamethasone 4 mg tablet mg 03/24/25 Unknown History fluconazole 100 mg tablet mg 03/24/25 Unknown History ondansetron HCl 8 mg tablet mg 03/24/25 Unknown History valacyclovir 500 mg tablet mg 03/24/25 Unknown History Allergies Allergy/AdvReac Type Severity Reaction Status Date / Time butorphanol Allergy Intermediate Palpitation Verified 03/21/25 08:52 s egg AdvReac Intermediate Vomiting Verified 03/12/25 13:41 ketorolac AdvReac Intermediate Palpitation Verified 03/12/25 13:41 s Review of Systems 2 Review of Systems: A 10 system review of systems was completed on the patient and is negative except for what is stated in the HPI. Nursing and ancillary documentation was reviewed. [facility] Past Medical History Medical History Morbid obesity Rosacea Anxiety Diarrhea Otitis media Depression Hypothyroidism, unspecified Migraine without aura and without status migrainosus, not intractable Surgical History Surgical History H/O breast biopsy Family History Family History Sibling Hypertension Patient's sister is in good health, Onset Age: 38 Patient's brother is in good health, Onset Age: 33 Family history of elevated blood lipids, Onset Age: 36 Diabetes mellitus Father Hypertension Family history of elevated blood lipids, Onset Age: 57 Family history of diabetes mellitus in first degree relative, Onset Age: 57 Diabetes mellitus Mother Family history of chronic obstructive pulmonary disease Family history of coronary artery disease, Onset Age: 54 Social History Social History Smoking status: Never smoker Second hand tobacco smoke exposure: No Alcohol intake: never Substance use: never Substance use type: does not use Do You Feel Safe in your Home?: Yes Lack of Transportation: No Lack of Food: Never True Current Housing: Decline to Answer Concerned About Future Housing: Decline to Answer Difficulty Paying Gas/Electric Bills: Decline to Answer Difficulty Paying for Meds: Decline to Answer Currently Unemployed: Decline to Answer Education: Decline to Answer Difficulty w/ Childcare or Family Care: Decline to Answer Living arrangements: with family Occupation/Education: occupation Gender identity (if verbalized by the patient): Female Sexual Orientation (if Verbalized by the Patient): Straight or Heterosexual Spiritual care concerns: No Exam 2 Narrative: GENERAL: Well-appearing, well-nourished, and in no acute distress. HEAD: Normocephalic, atraumatic. EYES: PERRLA and EOMI. ENT: Nares clear, no rhinorrhea or epistaxis. Mucous membranes moist. NECK: Supple. CHEST: Clear to auscultation. No respiratory distress. HEART: Regular rate and rhythm. No murmur heard. Normal peripheral pulses. ABDOMEN: Soft, mild tenderness to palpation left lower quadrant, nondistended, normal active bowel sounds. EXTREMITIES: Normal range of motion. No edema. SKIN: Warm, dry, no rash. NEURO: No focal deficits. Alert and oriented x3. PSYCH: Normal mood and affect. Course Vital Signs Vital signs: Vital Signs Temperature 36.7 C 03/28/25 12:31 Pulse Rate 84 03/28/25 12:31 Respiratory Rate 18 03/28/25 12:31 Blood Pressure 139/98 H 03/28/25 12:31 Pulse Oximetry 98 03/28/25 12:31 Oxygen Delivery Room Air 03/28/25 12:31 Temperature 36.7 C 03/28/25 12:31 Pulse Rate 70 03/28/25 15:44 Respiratory Rate 20 03/28/25 15:44 Blood Pressure 134/97 H 03/28/25 15:44 Pulse Oximetry 98 03/28/25 15:44 Oxygen Delivery Room Air 03/28/25 12:31 Medical Decision Making [facility] Narrative Medical decision making narrative: Differential diagnosis includes colitis, diverticulitis, GI bleed, intra- abdominal infection Laboratory studies showed a white count of 2.5 hemoglobin was 12.2 absolute neutrophil count was 0.5 electrolytes are within normal limits urinalysis was within normal limits. CT scan of the abdomen pelvis showed evidence of colitis. The patient will be started on Cipro and Flagyl and will be instructed to follow-up with GI Vital Signs Vital Signs: Vital Signs Temperature 36.7 C 03/28/25 12:31 Pulse Rate 84 03/28/25 12:31 Respiratory Rate 18 03/28/25 12:31 Blood Pressure 139/98 H 03/28/25 12:31 Pulse Oximetry 98 03/28/25 12:31 Oxygen Delivery Room Air 03/28/25 12:31 Temperature 36.7 C 03/28/25 12:31 Pulse Rate 70 03/28/25 15:44 Respiratory Rate 20 03/28/25 15:44 Blood Pressure 134/97 H 03/28/25 15:44 Pulse Oximetry 98 03/28/25 15:44 Oxygen Delivery Room Air 03/28/25 12:31 Lab Data 03/28/25 15:45 03/28/25 15:45 Labs: Lab Results 03/28/25 03/28/25 Range/Units 15:45 15:52 WBC 2.5 L (4.5-10.0) K/mm3 RBC 3.95 L (4.2-5.4) M/mm3 Hgb 12.2 (12.0-15.0) g/dL Hct 36.9 L (37.0-47.0) % MCV 93.4 (80-100) fl MCH 30.9 (26-34) pg MCHC 33.1 (32-36) g/dl RDW 12.7 (11.5-14.5) % Plt Count 260 (150-375) k/mm3 MPV 10.6 H (7.4-10.4) fl Immature Gran % (Auto) 0.8 H (0-0.5) % Neut % (Auto) 20.9 L (45.5-73.1) % Lymph % (Auto) 66.4 H (18.3-44.2) % [place] % (Auto) 8.7 H (2.6-8.5) % Eos % (Auto) 2.0 (0-4.4) % Baso % (Auto) 1.2 (0.2-1.2) % Lymph # (Auto) 1.68 (0.9-3.2) K/mm3 [place] # (Auto) 0.2 (0.1-0.6) K/mm3 Eos # (Auto) 0.1 (0-0.3) K/mm3 Baso # (Auto) 0.0 (0.0-0.1) K/mm3 Abs Immat Gran (auto) 0.02 (0.00-0.031) K/mm3 Absolute Neuts (auto) 0.5 L (1.3-6.7) K/mm3 Absolute Nucleated RBC 0.000 (0.0-0.012) K/mm3 Nucleated RBC % 0.0 (0.0-0.2) % PT 13.6 (11.1-14.7) Seconds INR 1.0 APTT 26.3 (22.3-36.8) Seconds Sodium 136 L (137-145) mmol/L Potassium 4.1 (3.4-5.0) mmol/L Chloride 103 (98-107) mmol/L Carbon Dioxide 26 (22-30) mmol/L Anion Gap 7 (4-12) mmol/L BUN 13 (7-17) mg/dL Creatinine 0.77 (0.7-1.0) mg/dL Estim Creat Clear Calc 93 ml/min Estimated GFR > 60 (59 - ) Glucose 94 (65-110) mg/dL Lactic Acid 1.1 (0.7-2.0) mmol/L Calcium 8.9 (8.4-10.2) mg/dL Magnesium 2.0 (1.6-2.3) mg/dL Total Bilirubin 1.1 (0.2-1.3) mg/dL AST 24 (14-36) U/L ALT 30 (6-35) U/L Alkaline Phosphatase 62 (38-126) U/L Troponin I < 0.012 (0.000-0.034) ng/mL Total Protein 7.0 (6.3-8.2) g/dL Albumin 4.1 (3.5-5.1) g/dL Lipase 111 (23-300) U/L Procalcitonin 0.1 ng/mL Urine Color Yellow (Yellow) Urine Appearance Clear (Clear) Urine pH 5.0 (5.0-9.0) Ur Specific [place] 1.023 (1.001-1.035) Urine Protein Trace (Negative) mg/dL Urine Glucose (UA) Negative (Negative) mg/dL Urine Ketones Negative (Negative) mg/dL Ur Blood (Man) Negative (Negative) Urine Nitrate Negative (Negative) Urine Bilirubin Negative (Negative) Urine Urobilinogen 0.2 (<2.0) mg/dL Leukocyte Esterase Rfl Negative (Negative) ELIJAH/UL Urine RBC 0-2 (0-2) /hpf Urine WBC 0-5 (0-3) /hpf Ur Squamous Epith Cells None seen (Few) /hpf Urine Bacteria None seen /hpf Urine Casts 3-5 Discharge Plan Discharge Clinical Impression: Colitis Patient Disposition: Home Condition: Stable Instructions: Antibiotic Form, Gastrointestinal Bleeding (ED), Colitis (ED) Patient Language: Polish Prescriptions: New ciprofloxacin HCl 500 mg tablet 500 mg PO Q12H 10 Days Qty: 20 0RF metronidazole 500 mg tablet 500 mg PO Q8H 10 Days Qty: 30 0RF No Action ivermectin [Soolantra] 1 % cream 1 applic TOPICAL DIRECTED fluconazole 100 mg tablet ondansetron HCl 8 mg tablet valacyclovir 500 mg tablet dexamethasone 4 mg tablet nystatin 100,000 unit/mL suspension 400,000 unit PO QID 7 Days Qty: 112 0RF Rx Instructions: administer 1/2 of dose in each side of the mouth; swish and spit meclizine 25 mg tablet 25 mg PO TID PRN (Reason: dizziness) 10 Days Qty: 30 0RF multivitamin [Daily Multi-Vitamin] Tablet 1 tablet PO DAILY cholecalciferol (vitamin D3) [Vitamin D3] 10 mcg (400 unit) tablet,chewable 6,000 unit PO DAILY Patient Comments: . sertraline 50 mg tablet 50 mg PO DAILY Qty: 90 1RF levothyroxine 175 mcg tablet 175 mcg PO DAILY Qty: 90 2RF Follow-up/Referrals: Neal Mena MD [Primary Care Provider] - Daniele Puri MD [Physician] - Time of Disposition: 17:49
[2025-03-28] MEDS: CIPROFLOXACIN 500 MG TAB PO (18:01)
[2025-03-28] MEDS: metroNIDAZOLE 500 MG TABLET PO (18:01)
[2025-03-28 18:08] VITALS: BP 134/97; PULSE 79; O2SAT 98
== END 2025-03-28 18:09 | disposition home or self-care (01) ==
PROVIDERS: Emergency Provider Emergency Medicine; PCP Internal Medicine Hematology & Oncology
DX: K52.9 Noninfective gastroenteritis and colitis, unspecified (principal); C50.919 Malignant neoplasm of unspecified site of unspecified female breast; E66.01 Morbid (severe) obesity due to excess calories; Z68.41 Body mass index [BMI] 40.0-44.9, adult; E03.9 Hypothyroidism, unspecified; K58.9 Irritable bowel syndrome, unspecified; F41.9 Anxiety disorder, unspecified; F32.A Depression, unspecified; Z79.60 Long term (current) use of unspecified immunomodulators and immunosuppressants; Z79.899 Other long term (current) drug therapy
CPT/HCPCS: 36415; 74177; 80053; 81001; 83605; 83690; 83735; 84145; 84484; 85025; 85610; 85730; 96361; 96374; 99284; A9270; J2405; J7030; Q9967

== ENCOUNTER 2025-05-02 08:46 | Outpatient (CLI) | payer OTHER, SELFPAY ==
--- OUTSIDE RECORDS SUMMARY | 2025-05-02 08:53 | XMS_ITS | Clinical Summary ---
Author Organization [facility] Vj Rubi Address [address] [place] [address] Care Team Providers Care Night Stocker Name Role Phone Unavailable Primary Care Provider Unavailabl e Allergies Active Allergy Reactions Criticality Noted Date Comments Ketorolac Hypertension Medium 02/02/2025 Tachycardia Medications levothyroxine 175 mcg tablet Take 1 Tablet by mouth daily. 12/20/19 25 Active traMADoL (ULTRAM) 50 mg tablet 02/01/20 25 Active sertraline (ZOLOFT) 50 mg tablet Take 1 Tablet by mouth daily. 01/08/20 25 Active ondansetron (ZOFRAN) 8 mg Tablet Take 1 Tablet (8 mg) by mouth every 8 hours as needed for Nausea/Emesis. 30 Tablet 1 02/03/20 25 Active lidocaine-pril ocaine (EMLA) 2.5-2.5 % Cream Apply to affected area see administration instructions. 30 Gram 1 02/03/20 25 Active dexAMETHasone (DECADRON) 4 mg tabletIndicati ons:Malignant neoplasm of upper-outer quadrant of left breast in female, estrogen receptor positive (CMS/HCC) Take 2 tablets by mouth BID day before, day of, and day after treatment with Docetaxel. 12 Tablet 4 02/27/20 25 Active fluconazole (DIFLUCAN) 100 mg tablet Take 1 Tablet (100 mg) by mouth daily. 5 Tablet 03/26/20 25 Active valACYclovir (VALTREX) 500 mg tablet Take 1 Tablet (500 mg) by mouth daily. 90 Tablet 04/09/20 25 Active valACYclovir (VALTREX) 500 mg tablet Take 1 Tablet (500 mg) by mouth daily. 14 Tablet 03/12/20 25 025 Discontin ued(Reord er) Active Problems No known active problems Encounters Date Type Department Care Team Description 05/01/2025 Telephone [facility] Oncology and Hematology - [place] [address] Neal Mena MD Upper Respiratory Symptoms 04/23/2025 Orders Only [facility] Oncology and Hematology - [place] [address] Neal Mena MD Malignant neoplasm of upper-outer quadrant of left breast in female, estrogen receptor positive (CMS/HCC) 04/19/2025 External Device Data STL ABSTRACTION Provider, Abstract 04/19/2025 External Device Data STL ABSTRACTION Provider, Abstract 04/18/2025 External Device Data STL ABSTRACTION Provider, Abstract 04/18/2025 Telephone [facility] Oncology and Hematology - [place] [address] Results 04/12/2025 Orders Only [facility] Oncology and Hematology - [place] [address] Neal Mena MD 04/09/2025 Telephone [facility] Oncology and Hematology - [place] [address] [place] [phone] Neal Mena MD Mdication Questions 04/09/2025 Orders Only [facility] Oncology and Hematology - [place] [address] [place] [phone] Neal Mena MD Malignant neoplasm of upper-outer quadrant of left breast in female, estrogen receptor positive (CMS/HCC) 03/30/2025 Abstract [facility] Oncology and Hematology - [place] [address] [place] [phone] Neal Mena MD 03/29/2025 Orders Only [facility] Oncology and Hematology - [place] [address] [place] [phone] Neal Mena MD 03/28/2025 Telephone [facility] Oncology and Hematology - [place] [address] [place] [phone] Neal Mena MD Blood In Stool 03/26/2025 Telephone [facility] Oncology and Hematology - [place] [address] Lelia Garcia MD Thrush 03/26/2025 Orders Only [facility] Oncology and Hematology - [place] [address] Neal Mena MD Malignant neoplasm of upper-outer quadrant of left breast in female, estrogen receptor positive (CMS/HCC) 03/21/2025 9:00 AM CDT Office Visit [facility] Oncology and Hematology - [place] [address] [place] [phone] Lelia Garcia MD Malignant neoplasm of upper-outer quadrant of left breast in female, estrogen receptor positive (CMS/HCC) (Primary Dx) 03/21/2025 Orders Only [facility] Oncology and Hematology - [place] [address] [place] [phone] Neal Mena MD 03/19/2025 Orders Only [facility] Oncology and Hematology - [place] [address] [place] [phone] Neal Mena MD Malignant neoplasm of upper-outer quadrant of left breast in female, estrogen receptor positive (CMS/HCC) (Primary Dx) 03/13/2025 External Device Data STL ABSTRACTION Provider, Abstract 03/12/2025 Telephone [facility] Oncology and Hematology - [place] [address] [place] [address] Neal Mena MD mouth sores 03/12/2025 Orders Only [facility] Oncology and Hematology - [place] [address] Neal Mena MD Malignant neoplasm of upper-outer quadrant of left breast in female, estrogen receptor positive (CMS/HCC) 03/09/2025 Abstract [facility] Oncology and Hematology - [place] [address] Neal Mena MD 03/01/2025 Abstract [facility] Oncology and Hematology - [place] [address] [place] [phone] Neal Mena MD 02/28/2025 Orders Only [facility] Oncology and Hematology - [place] [address] Neal Mena MD 02/27/2025 Orders Only [facility] Oncology and Hematology - [place] [address] Neal Mena MD Malignant neoplasm of upper-outer quadrant of left breast in female, estrogen receptor positive (CMS/HCC) (Primary Dx) 02/27/2025 Orders Only [facility] Oncology and Hematology - [place] [address] [place] [phone] Neal eMna MD Malignant neoplasm of upper-outer quadrant of left breast in female, estrogen receptor positive (CMS/HCC) (Primary Dx) 02/26/2025 Refill [facility] Oncology and Hematology - [place] [address] [place] [address] Neal Mena MD Malignant neoplasm of upper-outer quadrant of left breast in female, estrogen receptor positive (CMS/HCC) (Primary Dx) 02/14/2025 External Device Data STL ABSTRACTION Provider, Abstract 02/13/2025 External Device Data STL ABSTRACTION Provider, Abstract 02/08/2025 Orders Only [facility] Oncology and Hematology - [place] [address] Neal Mena MD 02/05/2025 External Device Data STL ABSTRACTION Provider, Abstract 02/02/2025 2:00 PM POWER SYSTEM OPERATOR Office Visit [facility] Oncology and Hematology [facility] [address] [place] [address] Neal Mena MD Malignant neoplasm [...] file Legal Sex Female 5:43 AM POWER SYSTEM OPERATOR Gender Identity Not on file Sexual [...] 8:56 AM CDT Height 162.6 cm (5' 4) 02/02/2025 1:46 PM POWER SYSTEM OPERATOR Body Mass Index 41.64 02/02/2025 1:46 PM POWER SYSTEM OPERATOR Plan of Treatment Upcoming Encounters Date Type Department Care Team (Late st Contact Info) Description 05/02/2025 9:00 AM CDT Office Visit [facility] Oncology and Hematology [place] [address] [place] [phone] Neal Mena MD [address] [facility] [address] [place] [phone] Health Maintenance Due Date Last Done [...] 5 years 2023 INFLUENZA VACCINE (#1) 2024 CERVICAL CANCER SCREENING 02/16/2027 PAP SMEAR 02/16/2027 02/17/2024 Procedures Procedure Name Priority Date/Time Associated Diagnosis Comments BASIC METABOLIC PANEL Routine 04/11/2025 11:03 AM CDT CBC WITH DIFFERENTIAL Routine 03/28/2025 3:15 PM CDT CBC WITH DIFFERENTIAL Routine 03/28/2025 2:[address] ABDOMEN PELVIS W CONTRAST Routine 03/28/2025 1:39 PM CDT BASIC METABOLIC PANEL Routine 03/21/2025 12:56 PM CDT COMPREHENSIVE METABOLIC PANEL Routine 03/21/2025 11:55 AM CDT CANCER ANTIGEN 15-3 Routine 03/21/2025 1 1:46 AM CDT CBC MIXED CELL DIFFERENTIAL Routine 02/27/2025 3:58 PM CDT COMPREHENSIVE METABOLIC PANEL Routine 02/27/2025 8:01 AM CDT ECHO COMPLETE Routine 02/07/2025 11:13 AM CDT from Last 3 Months Results * BASIC METABOLIC PANEL (04/11/2025 11:03 AM CDT) Only the most recent of2 resultswithin the time period is included. Blood us Neal Mena MD CHEMISTRY ORDERABLES Final Resu lt * CBC WITH DIFFERENTIAL (03/28/2025 3:15 PM CDT) Only the most recent of2 resultswithin the time period is included. Blood us Provider Scanning HEMATOLOGY ORDERABLES Final Re sult * CT ABDOMEN PELVIS W CONTRAST (03/28/2025 1:39 PM CDT) Anatomical Region Laterality Modality Abdomen Computed Tomogra phy Neal Mena MD CT ORDERABLES Final Result * COMPREHENSIVE METABOLIC PANEL (03/21/2025 11:55 AM CDT) Only the most recent of2 resultswithin the time period is included. Blood us Neal Mena MD CHEMISTRY ORDERABLES Final Resu lt * CANCER ANTIGEN 15-3 (03/21/2025 11:46 AM CDT) Blood Neal Mena MD CHEMISTRY ORDERABLES Final Resu lt * CBC MIXED CELL DIFFERENTIAL (02/27/2025 3:58 PM CDT) Blood us Neal Mena MD HEMATOLOGY ORDERABLES Final Res ult * ECHO COMPLETE (02/07/2025 11:13 AM CDT) Neal Mena MD ECHO ORDERABLES Final Result from Last 3 Months Insurance [facility] [employer]
--- OUTSIDE RECORDS SUMMARY | 2025-05-02 08:53 | XMS_ITS | Clinical Summary ---
Author Organization [facility] Building [address] [place] [address] Care Team Providers Care Route Process Administrator Name Role Phone Trey Shen MD Primary [...] injectorIndicat ions:Obesity, Class III, BMI 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),Body mass index 45.0-49.9, adult (HCC) Inject 0.5 mL (10 mg total) under the skin every 7 days 2 mL 4 12/05/2024 Active Active Problems Problem Noted Date Diagnosed Date Encounter for exercise counseling 12/05/2024 Assessment & Plan (12/05/2024 3:05 PM CHIEF LOCK OPERATOR): I counseled the patient on exercise: Recommend [...] 12/05/2024 Assessment & Plan (12/05/2024 3:57 PM CHIEF LOCK OPERATOR): Patient's highest BMI was 48.6 ; initial BMI was 46.8; this has improved to 41.07 through medical management Vitamin D deficiency 09/12/2024 Assessment & Plan (12/05/2024 3:06 PM CHIEF LOCK OPERATOR): Continue vitamin-D supplementation Assessment & Plan (09/12/2024 4:10 PM CDT): start vitamin-D replacement 5,000IU daily Encounter for weight loss counseling 07/11/2024 Assessment & Plan (12/05/2024 3:05 PM CHIEF LOCK OPERATOR): Reviewed importance of adequate protein intake. Reviewed [...] 07/11/2024 Assessment & Plan (12/05/2024 3:05 PM CHIEF LOCK OPERATOR): Obesity is one of the leading risk [...] 03/21/2018 Assessment & Plan (12/05/2024 4:18 PM CHIEF LOCK OPERATOR): Reviewed most recent labs. Continue low carb, [...] 03/21/2018 Assessment & Plan (12/05/2024 3:05 PM CHIEF LOCK OPERATOR): Continue current dose of levothyroxine. Assessment & [...] Department Care Team Description 02/02/2025 Telephone [facility] Metabolic Weight Management [address] [facility] [address], [address] [place] [address] Nirali Sands CMA from Last [...] on file Legal Sex Female 7:08 PM CHIEF LOCK OPERATOR Gender Identity Not on file Sexual [...] (239 lb 6.4 oz) 12/05/2024 3:55 PM CHIEF LOCK OPERATOR Height 162.6 cm (5' 4.02) 12/05/2024 3:55 PM CS T Body Mass Index 41.07 12/05/2024 3:55 PM CHIEF LOCK OPERATOR Plan of Treatment Health Maintenance Due Date [...] patient's age to complete this topic Insurance [employer] [facility] [id number] Care Teams Route Process Administrator Relationship Specialty Start Date End Date Trey Shen MD [address] [facility] [address] [place] [address] PCP - General Family Medicine 03/10/18
--- OUTSIDE RECORDS SUMMARY | 2025-05-02 08:53 | XMS_ITS | Encounter Summary ---
Author Organization [facility] Address [address] [place] [address] Care Team Providers Care Auricular Detoxification Specialist Name Role Phone Unavailable Primary Care Provider Unavailabl e Encounter Details Date Type Department Care Team (Late st Contact Info) Description 03/15/2009 Outpatient Historical [facility] [place], Authorized P NO ADDRESS ON FILE Juan Carranza MD [address] [place] [phone] Social History Tobacco Use Types Packs/Day Years Used Date Smoking Tobacco: Never Assessed Comments Unknown Sex and Gender Information Value Date Recorded Sex Assigned at Not on file Legal Sex Female 5:43 AM DEVELOPMENT TRAINER Gender Identity Not on file Sexual Orientation Not on file documented as of this encounter Plan of Treatment Upcoming Encounters Date Type Department Care Team (Late st Contact Info) Description 05/02/2025 9:00 AM CDT Office Visit [facility] Oncology and Hematology - [place] [address] [facility] [address] [place] [address] Neal Mena MD [address] [facility] [address] [place] [address] documented as of this encounter Procedures Procedure Name Priority Date/Time Associated Diagnosis Comments CBC WITH DIFFERENTIAL Stat 03/15/2009 10:24 PM CDT C-REACTIVE PROTEIN Stat 03/15/2009 10 :24 PM CDT COMPREHENSIVE METABOLIC PANEL Stat 03/15/2009 10:24 PM CDT documented in this encounter Results * C-REACTIVE PROTEIN (03/15/2009 10:24 PM CDT) Pathologist [facility] CRP 0.7 0.0 - 0.8 mg/dL [facility] Blood specimen (specimen) 03/15/2009 10:24 PM CDT 03/15/2009 10:40 PM CDT us Juan Carranza MD CHEMISTRY ORDERABLES Final Resu lt INTERFACE SYSTEM Refer to clinic/hospital department [facility] CLIA# [id number] [address] [place] [address] * (ABNORMAL) COMPREHENSIVE METABOLIC PANEL (03/15/2009 10:24 PM CDT) Pathologist [facility] CREATININE 0.60 0.51 - 0.95 mg/dL [facility] SODIUM 137 135 - 145 mmol/L [facility] ALT 12 0 - 31 U/L [facility] ALKALINE PHOSPHATASE 46 35 - 104 U/L [facility] BILIRUBIN TOTAL 0.5 0.2 - 1.0 mg/dL [facility] CO2 21(L) 22 - 30 mmol/L [facility] TOTAL PROTEIN 6.1(L) 6.3 - 8.6 g/dL [facility] POTASSIUM 3.1(L) 3.5 - 4.9 mmol/L [facility] GLUCOSE 111(H) 65 - 99 mg/dL [facility] AST 17 12 - 32 U/L [facility] BUN 6 6 - 20 mg/dL [facility] CALCIUM 8.5(L) 8.6 - 10.2 mg/dL [facility] CHLORIDE 107 96 - 108 mmol/L [facility] ALBUMIN 3.5 3.4 - 4.8 g/dL [facility] GFR, >60 >=60 mL/min/1. 7 sq meter [facility] GFR >60 >=60 mL/min/1. 7 sq meter [facility] Comment: Modification of Diet in Renal Disease (MDRD) study formula. Estimated GFR rate interpretative information for both Americans and non- Americans is available on the [facility] Intranet at: [email or web address] Select: Lab Policies and Procedures Select: Reference Ranges - GFR Blood specimen (specimen) 03/15/2009 10:24 PM CDT 03/15/2009 10:40 PM CDT Juan Carranza MD CHEMISTRY ORDERABLES Edited INTERFACE SYSTEM Refer to clinic/hospital department [facility] CLIA# [id number] [address] [place] [address] * (ABNORMAL) CBC WITH DIFFERENTIAL (03/15/2009 10:24 PM CDT) HEMOGLOBIN 10.4(L) 11.8 - 14.8 g/dL [facility] RDW 14.2 11.5 - 14.5 % [facility] WBC 10.7(H) 4.0 - 9.8 K/uL [facility] MCH 30.0 27.2 - 32.6 pg [facility] MPV 10.9 9.3 - 12.4 fL [facility] HEMATOCRIT 30.4(L) 35.5 - 44.0 % [facility] RDW-STDEV 44.5 37.1 - 48.7 fL [facility] RBC 3.47(L) 3.90 - 4.90 M/uL [facility] MCHC 34.2 31.5 - 35.5 % [facility] MCV 87.6 82.0 - 99.0 fL [facility] PLATELETS 229 140 - 350 K/uL [facility] LYMPHOCYTES 17 16 - 45 % [facility] LYMPHOCYTE ABSOLUTE 1.84 0.70 - 4.50 K/uL [facility] BASOPHILS 0 0 - 2 % [facility] BASOPHILS ABSOLUTE 0.01 0.00 - 0.20 K/uL [facility] MONOCYTES 7 3 - 13 % [facility] MONOCYTE ABSOLUTE 0.72 0.10 - 1.30 K/uL [facility] NEUTROPHILS 75(H) 45 - 70 % [facility] NEUTROPHIL ABSOLUTE 8.05(H) 1.90 - 7.00 K/uL [facility] EOSINOPHILS 1 0 - 7 % [facility] EOSINOPHIL ABSOLUTE 0.07 0.00 - 0.70 K/uL [facility] Blood specimen (specimen) 03/15/2009 10:24 PM CDT 03/15/2009 10:40 PM CDT us Juan Carranza MD HEMATOLOGY ORDERABLES Edited INTERFACE SYSTEM Refer to clinic/hospital department [facility] CLIA# [id number] [address] [place] [place] [address] documented in this encounter Visit Diagnoses Not on filedocumented in this encounter
--- OUTSIDE RECORDS SUMMARY | 2025-05-02 08:53 | XMS_ITS | Referral Summary ---
Author Organization [facility] [address] [place] [address] Care Team Providers Care Medication Aide Name Role Phone Trey Shen MD Primary Care Provider Encounters Date Type Department Care Team Description 02/02/2025 Telephone [facility] Metabolic Weight Management [address] [facility] [address], [address] [place] [address] Nirali Sands, FILM RECORDIST from Last 3 Months Allergies Active Allergy [...] 12/05/2024 Assessment & Plan (12/05/2024 3:05 PM GRANULIZING MACHINE OPERATOR): I counseled the patient on exercise: Recommend 36 min. cardio daily. Based on availiable data on the secondary prevention of coronary heart disease, stroke and prediabetes, physical activity is potentially as active as many drug interventions.SuriAlessandrasharita: BMJ 2013 347:f5577;08/2013; Diabetes Care, Volume 35, Oct 2012. Reviewed recommendation/goal of >/= 150 minutes/week moderate intensity aerobic exercise. Discussed need for weightbearing exercise in order to promote muscle gain and burning fat. Body mass index 45.0-49.9, adult 12/05/2024 Assessment & Plan (12/05/2024 3:57 PM GRANULIZING MACHINE OPERATOR): Patient's highest BMI was 48.6 ; initial BMI was 46.8; this has improved to 41.07 through medical management Vitamin D deficiency 09/12/2024 Assessment & Plan (12/05/2024 3:06 PM GRANULIZING MACHINE OPERATOR): Continue vitamin-D supplementation Assessment & Plan (09/12/2024 4:10 PM CDT): start vitamin-D replacement 5,000IU daily Encounter for weight loss counseling 07/11/2024 Assessment & Plan (12/05/2024 3:05 PM GRANULIZING MACHINE OPERATOR): Reviewed importance of adequate protein intake. [...] 07/11/2024 Assessment & Plan (12/05/2024 3:05 PM GRANULIZING MACHINE OPERATOR): Obesity is one of the leading [...] 03/21/2018 Assessment & Plan (12/05/2024 4:18 PM GRANULIZING MACHINE OPERATOR): Reviewed most recent labs. Continue low [...] 03/21/2018 Assessment & Plan (12/05/2024 3:05 PM GRANULIZING MACHINE OPERATOR): Continue current dose of levothyroxine. Assessment [...] on file Legal Sex Female 7:08 PM GRANULIZING MACHINE OPERATOR Gender Identity Not on file [...] (239 lb 6.4 oz) 12/05/2024 3:55 PM GRANULIZING MACHINE OPERATOR Height 162.6 cm (5' 4.02) 12/05/2024 3:55 PM CS T Body Mass Index 41.07 12/05/2024 3:55 PM GRANULIZING MACHINE OPERATOR Plan of Treatment Not on file Insurance [facility] [id number] Care Teams Medication Aide Relationship Specialty Start Date End Date Trey Shen MD [address] [place] [address] PCP - General Family Medicine 03/10/18
--- OUTSIDE RECORDS SUMMARY | 2025-05-02 08:53 | XMS_ITS | Encounter Summary ---
Author Organization [facility] [employer] [facility] Address [address] [place] [address] Care Team Providers Care Honey Producer Name Role Phone Unavailable Primary Care Provider Unavailabl e Reason for Visit * Reason Onset Date Comments Upper Respiratory Symptoms 05/01/2025 Encounter Details Date Type Department Care Team (Late st Contact Info) Description 05/01/2025 Telephone [facility] Oncology and Hematology - [place] [address] [facility] [address] [place] [address] Neal Mena MD [address] [facility] [address] [place] [address] Upper Respiratory Symptoms Social History Tobacco Use Types Packs/Day Years Used Date Smoking Tobacco: Never Smokeless Tobacco: Never Alcohol Use Standard Drinks/Week Comments Never 0 (1 standard drink = 0.6 oz pur e alcohol) Comments Unknown Sex and Gender Information Value Date Recorded Sex Assigned at Not on file Legal Sex Female 5:43 AM BUYERS' AGENT Gender Identity Not on file Sexual Orientation Not on file documented as of this encounter Miscellaneous Notes * Telephone Encounter - Yarelis Pierson - 05/01/2025 9:34 AM CDT Patient is aware of the recommendations. She says that she feels much better today. * Telephone Encounter - Yarelis Pierson - 05/01/2025 9:34 AM CDT ----- Message from Dr. Neal Mena sent at 04/30/2025 5:02 PM CDT ----- Regarding: RE: Cold Symptoms If she is afebrile then I would not recommend antibiotic. ----- Message ----- From: Yarelis Pierson Sent: 04/30/2025 9:44 AM CDT To: Neal Mena MD Subject: Cold Symptoms Patient called because she started feeling a cold coming on . Wednesday is when the symptomsreally started. She has a dry cough, runny nose, and congestion. When she blows her nose it is clear and thin. She has been taking mucinex since yesterday. She is due to have chemotherapy on Wednesday. She wants to know if she should be taking something else, if she needs an antibiotic or if she isgood for treatment on Wednesday? Please advise. documented in this encounter Plan of Treatment Upcoming Encounters Date Type Department Care Team (Late st Contact Info) Description 05/02/2025 9:00 AM CDT Office Visit [facility] Oncology and Hematology - [place] [address] [place] [address] [address] Neal Mena MD [address] [facility] [address] [place] [address] documented as of this encounter Visit Diagnoses Not on filedocumented in this encounter
--- OUTSIDE RECORDS SUMMARY | 2025-05-02 08:53 | XMS_ITS | Data Portability ---
Author Organization [facility], Main Office Address [address] [place] [address] Assessment No assessment recorded. Plan of Treatment Reminders Order Date Submit Date Provider Last Modified By Organization Details Last Modified Time Details Appointments None recorded. Lab None recorded. Referral None recorded. Procedures None recorded. Surgeries None recorded. Imaging audiogram + tympanogram 2023 024 [email or web address] 42 [facility], [address] [place] [address], [facility], [place], [address], 5 17:21:49 Medication Orders None recorded. Patient TargetsNo targets recorded. Patient Instructions Encounter Date Encounter Id Patient Instructions Last Modified By Organization Details Last Modified Time 09/13/2024 [id number] alia-hallpike [email or web address]* [email or web address] Not available 03/12/2025 08:32:13 continue use of meclizine as needed for vertigo symptoms. She will see PT for Alia-Hallpike testing for possible BPPV. We will also obtain an audiogram and tympanogram for further testing. [email or web address] Not available 09/13/2024 16:04:48 Reason for Referral None Reported. Problems Name Problem SNOMED Code Status Onset Date Resolution Date Notes Provider Name and Address Organization Details Recorded Time Vertigo 672481547 Active 2023 Prince Calderon CMA null, [facility] 15:59:06 Sensorineural hearing loss 08336841 Active 2023 Prince Calderon CMA null, [facility] 16:00:48 Benign paroxysmal positional vertigo 385990091 Active 2023 Bettie Ibarra, HU[facility] [address] [facility], [facility] [address], [place], [address] , [facility] 16:03:52 Problem Notes None recorded. Procedures Surgical History Date Name Laterality Status Provider Name and Address Organization Details Recorded Time 07/31/20 19 Tubal Ligation completed Prince Calderon CMA [facility] 09/13/2024 15:42:59 12/30/19 04 cholecystectomy completed Prince Calderon CMA [facility] 09/13/2024 15:42:31 Imaging Results None recorded. Procedure Notes None recorded. Medical Equipment None Reported. Allergies Allergen ID Allergen Name Allergen Category Reaction Reaction Severity Criticality Documentation Date Start Date Code Code System Note Provider Name and Address Organization Details Recorded Time 79277 Toradol medicatio n palpitati ons Not available Not available 09/12/2024 59527 Rx[facility] 12:54:34 29987 Stadol medicatio n palpitati ons Not available Not available 09/13/2024 43800 RxNorm Prince Calderon [facility] 15:38:10 Medications Name Sig Start Date Stop [...] Address Organization Details Last Updated DateTime 09/13/2024 792954.2 g 98 [degF] 45 kg/m2 162.56 cm Prince Calderon CMA [facility] 09/13/2024 15:37:32 Social History Question Answer Notes LastModified by Organizat ion Details LastModified Time Tobacco Smoking Status Never Smoker Ylnn Raul sumner [facility] 09/12/2024 12:56:45 What Is Your Level Of Caffeine Consumption? Occasional Coffee [email or web address] Information not available 09/13/2024 Sex: Unknown Functional Status Question Answer Note LastModified by Organization D etails LastModified Time What is your level of alcohol consumption? None Information not available 09/12/2024 Mental Status None recorded. Family History Relationship Description Onset Age of this Age Resolved Age Notes LastModified by Organization Details LastModified Time Father Diabetes mellitus [email or web address] Not available 2023 15:43:22 Father Family history of stroke [email or web address] Not available 2023 15:43:39 Mother Heart disease [email or web address] Not available 2023 15:43:46 Medical History Condition Response MRSA N LUNG DISEASE/DISORDER N HISTORY OF DRUG ABUSE N COPD N RADIATION / CHEMOTHERAPY N BLOOD DISEASES N EAR OR HEARING PROBLEMS N SHINGLES N DEPRESSION (INCLUDING POST ) N FAILED BACK SYNDROME N STROKE/TIA N OBESITY N ANEURYSM N Do you have Advance directive? N USE OF BLOOD THINNERS N PARATHYROID DISEASE N ARTERIAL INSUFFICIENCY N CHF N AIDS/HIV N HYPERTENSION N TOURETTE'S N BLOOD TRANSFUSION N ANEMIA/BLOOD DISORDER N CHRONIC EAR INFECTIONS N TUBERCULOSIS N BACK INJECTIONS N ALLERGIES/HAYFEVER N ESRD N INSOMNIA N HIGH CHOLESTEROL / HYPERLIPIDEMIA N HYPERTHYROIDISM Y PVD N HYPOTHYROIDISM N BACK / NECK PROBLEMS N HAVE YOU BEEN HOSPITALIZED OR SEEN IN [facility] ER IN THE PAST YEAR ? N POLYCYSTIC OVARIES N HISTORY WITH COMPLICATIONS WITH ANESTHES IA ? N NO SIGNIFICANT PAST MEDICAL HISTORY N DIABETES, TYPE N VON WILLIBRAND'S DISEASE N ENT N SEASONAL ALLERGIES N HEARTBURN / REFLUX N POST LAMINECTOMY SYNDROME N HEPATITIS / LIVER DISEASE N SLEEP DISORDER N HEADACHES/MIGRAINES N SEIZURES/EPILEPSY N PACEMAKER N DIZZINESS N HEART DISEASE/HEART PROBLEMS N NEUROPSYCHOLOGICAL N CANCER: SPECIFY N ANESTHESIA COMPLICATIONS N ATRIAL FIBRILLATION N AUTOIMMUNE DISEASE N Gynecological HistoryNo gynecological history recorded. Obstetrics History GPAL:G 0 P 0 0 0 0 Past Encounters Encounter ID Performer Location Encounter Start Date Encounter Closed Date Diagnosis/Indication Diagnosis SNOMED-CT Code Diagnosis ICD10 Code Diagnosis Note [id number] Dave Webb MD [facility] [place] [address] [place] [address] 09/13/2024 15:26:45 09/13/2024 16:05:18 Benign paroxysmal positional vertigo 605850119 H81.10 Health Concerns Section Related Observation LastModified by Organization Detai ls LastModified Time None Recorded Concern Status LastModified by Organization Details LastModified Time None Recorded Advance Directives Directive None Recorded Payers Encounter Date Sequence Insurance Name Policy Number Policy Castro Covered Member ID Castro Member ID Guarantor Name 09/13/2024 1 [employer] - OPEN ACCESS Austin Dong [id number] Austin Dong Notes Date Note Type Note [...] also notes if she moves her head [id number] quickly this can also elicit symptoms. She also reports that when her spouse was watching football on the television the other day, this too was causing vertigo like symptoms. 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 [facility] [address], [place], [address], [facility] 09/13/2024 16:04:52 OBGyn Episode No OBEpisode recorded.
--- OUTSIDE RECORDS SUMMARY | 2025-05-02 08:53 | XMS_ITS | Data Portability ---
Author Organization [facility], Hugo Address [address] [place] [address] [place] [address] Care Team Providers Care Obstetrics And Gynecology Professor Name Role Phone STEFAN MCLAUGHLIN Primary Care Provider [phone] Assessment Encounter Date Assessment Date Assessment LastModified [...] mammogram due to mass found in right [email or web address] Not available 07/30/2021 10:56:08 02/17/2024 02/17/2024 Annual [...] Imaging MAMMO, screening, digital, bilateral 2023 024 [facility], [address], [address], [place], [address], 05:01:18 US, pelvis 2020 021 [email or web address] [address], [address], [place], [address], 07:22:39 US, transvagina l 2020 021 [email or web address] [address], [address], [place], [address], 07:22:39 US, pelvis, complete 2020 [email or web address] Not [...] as clini tyrell mullins nted. Not Available [facility] (Lab) [address], [place], [address], 08/03/2021 19:24:02 02/17/20 24 02/17/2024 IMAGE GUIDE [...] as clini tyrell warra nted. Not Available [facility] (Lab) [address], [place], [address], 02/22/2024 15:56:44 08/01/2008/01/2021 US, trans quan al No observ ation record ed. [facility] [address], [place], [address], 08/05/2021 17:01:44 08/01/20 21 08/01/2021 , earlene amezquita No observ ation record ed. [facility] [address], [place], [address], 08/01/2021 17:08:35 08/01/2008/01/2021 US, emanuel glass al No observ ation record ed. [facility] [address], [place], [address], 08/01/2021 17:08:44 Result Notes None recorded. Problems Name Problem SNOMED Code Status Onset Date Resolution Date Notes Provider Name and Address Organization Details Recorded Time Pregnanc y test negative 011907593 Completed 201707/29/2021 Encounte r for pregnanc y test, result negative ;Practic e ID: 0001 Kari sumner [facility] 17:16:18 Finding of menstrua l bleeding Completed 201707/29/2021 Excessiv e and frequent menstrua tion with regular cycle;Pr actice ID: 0001 Kari Najera [facility] 17:15:23 Finding of pattern of menstrua l cycle [id number] Completed 201707/29/2021 Excessiv e and frequent menstrua tion with irregula r cycle;Pr actice ID: 0001 Kari sumner [facility] 17:15:25 Finding of regulari ty of menstrua l cycle Completed 201707/29/2021 Irregula r menstrua tion, unspecif ied;Prac julian ID: 0001 Kari Najera [facility] 17:15:27 Female genitali a finding Completed 201707/29/2021 Foreign body in vulva and vagina, sequela; Practice ID: 0001 Kari sumner [facility] 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 17:16:11 Pain in female genitali a Completed 201707/29/2021 Dysmenor xander, unspecif ied;Prac julian ID: 0001 Kari sumner [facility] 08/31/202 1 17:15:19 Steriliz ation procedur e Completed 201707/29/2021 Encounte r for steriliz ation;Pr actice ID: 0001 Kari sumner [facility] 17:16:36 Procedur e on genitour inary system Completed 201707/29/2021 Encounte r for surgical aftcr followin g surgery on the sys;Prac julian ID: 0001 Kari sumner [facility] 17:16:20 Postoper ative care Completed 201707/29/2021 Encounte r for surgical aftcr followin g surgery on the sys;Prac julian ID: 0001 Kari sumner [facility] 17:16:15 Urinary tract infectio us disease 55578326 Completed 201807/29/2021 Urinary tract infectio n, site not specifie d;Practi ce ID: 0001 [facility] Concept Completed 201807/29/2021 Encntr for therapy manager exam (general ) (routine ) w/o abn findings ;Practic e ID: 0001 Kari sumner [facility] 17:16:32 Screenin g for malignan t neoplasm of rectum Completed 201807/29/2021 Encounte r for screenin g for malignan t neoplasm of rectum;P ractice ID: 0001 Kari sumner [facility] 17:16:28 Right lower quadrant pain 212460739 Completed 201607/29/2021 Right lower quadrant pain;Pra ctice ID: 0001 Kari sumner [facility] 17:16:24 Pelvic and perineal pain 745749814 Completed 201607/29/2021 Pelvic and perineal pain;Pra ctice ID: 0001 Kari sumner, [facility] 17:16:12 Hypothyr oidism 05862705 Completed 201607/29/2021 Hypothyr oidism, unspecif ied;Prac julian ID: 0001 Kari Najera [facility], [facility] 17:15:57 Depressi ve disorder 22087029 Completed 201607/29/2021 Major depressi ve disorder , single episode, unspecif ied;Prac julian ID: 0001 Kari Najera [facility], [facility] 17:15:09 Acute vaginiti s 62172031 Completed 201607/29/2021 Acute vaginiti s;Practi ce ID: 0001 Kari Najera [facility], [facility] 17:14:[address] Concept Completed 201607/29/2021 Encntr for general adult medical exam w/o abnormal findings ;Recorde d Elsewher e: No Locat ion: [facility] S ource: [employer] Reforming Unit luz: N Practi ce ID: 0001 Petr lable Time: 09:30:00 AM Kari Najera [facility] 17:16:30 Clinical finding Completed 201507/29/2021 Presence of (intraut erine) contrace ptive device;R ecorded Elsewher e: No Locat ion: [facility] S ource: [employer] Reforming Unit luz: N Practi ce ID: 0001 Petr lable Time: 12:45:00 PM Kari Najera [facility] 17:14:38 Evaluati on finding Completed 201807/29/2021 Hematuri a, unspecif ied;Toni rded Elsewher e: No Locat ion: [facility] Vicentati ce ID: 0001 Petr lable Time: 08:15:00 AM Kari sumner, [facility] 17:15:14 Insertio n of intraute rine contrace ptive device Completed 201507/29/2021 Encounte r for insertio n of intraute rine contrace ptive device;R ecorded Elsewher e: No Locat ion: [facility] Practi ce ID: 0001 Petr lable Time: 12:45:00 PM Kari sumner, [facility] 17:16:02 Increase d frequenc y of urinatio n [id number] Completed 201307/29/2021 Urinary frequenc y;Record ed Elsewher e: No Locat ion: [facility] Vicentati ce ID: 0001 Petr lable Time: 02:00:00 PM Kari sumner, [facility] 17:15:59 Lesion of ovary Completed 201607/29/2021 Other ovarian cyst, right side;Rec orded Elsewher e: No Locat ion: [facility] Vicentati ce ID: 0001 Petr lable Time: 01:30:00 PM Kari sumner [facility] 17:14:55 Clinical finding Completed 201607/29/2021 Obesity, unspecif ied;Toni rded Elsewher e: No Locat ion: [facility] Practi ce ID: 0001 Petr lable Time: 01:45:00 PM Kari sumner [facility] 17:15:29 Speciali zed medical examinat ion Completed 201207/29/2021 Gynecolo gical Examinat ion;Toni rded Elsewher e: No Locat ion: [facility] S ource: [employer]forming Unit luz: N Practi ce ID: 0001 Petr lable Time: 03:00:00 PM Kari Najera taisha, [facility] 17:16:34 Speciali zed medical examinat ion Completed 201108/15/2012 Gynecolo gical Examinat ion;Toni rded Elsewher e: No Locat ion: [facility] S ource: [employer] Reforming Unit luz: N Practi ce ID: 0001 Petr lable Time: 11:30:00 AM Kari Najera [facility], [facility] 17:16:34 Dysfunct ional uterine bleeding Completed 201008/15/2012 Other disorder s of menstrua tion and other abnormal bleeding from female genital tract;Re corded Elsewher e: No Locat ion: [facility] Practi ce ID: 0001 Petr lable Time: 03:30:00 PM Kari Najera [facility] 17:15:12 Breast lump [id number] Completed 201307/29/2021 Breast Lump Or Mass;Rec orded Elsewher e: No Locat ion: [facility] Y Vicentati ce ID: 0001 Petr lable Time: 04:30:00 PM Kari Najera [facility], [facility] 17:14:35 Removal of intraute rine device Completed 201607/29/2021 Encounte r for removal of intraute rine contrace ptive device;R ecorded Elsewher e: No Locat ion: [facility] Practi ce ID: 0001 Petr lable Time: 08:45:00 AM Kari sumner [facility] 17:16:22 Adult health examinat ion Completed 201307/29/2021 ROUTINE MEDICAL EXAM;Rec orded Elsewher e: No Locat ion: [facility] S ource: [employer]forming Unit luz: N Practi ce ID: 0001 Petr lable Time: 02:00:00 PM Kari sumner [facility] 17:14:08 Cyst of ovary Completed 201607/29/2021 Unspecif ied ovarian cyst, unspecif ied side;Rec orded Elsewher e: No Locat ion: [facility] S ource: [facility] Reforming Unit luz: N Practi ce ID: 0001 Petr lable Time: 01:30:00 PM Kari sumner [facility] 17:14:40 Dysfunct ional uterine bleeding Completed 201007/29/2021 DUB;Prac julian ID: 0001 Kari Najera [facility], [facility] 17:15:12 Nausea [id number] Completed 201007/29/2021 Nausea alone;Pr actice ID: 0001 Kari Najera [facility] 17:16:08 Screenin g for malignan t neoplasm of cervix Completed 201107/29/2021 Pap Smear;Pr actice ID: 0001 Kari Najera [facility], [facility] 17:16:26 Malaise and fatigue 881671449 Completed 201207/29/2021 Fatigue And Malaise; Practice ID: 0001 Kari Najera [facility] 17:16:04 Female genital organ symptoms [id number] Completed 201207/29/2021 Unspecif ied symptom associat ed with female genital organs;P ractice ID: 0001 Kari Najera [facility] 17:15:17 Microsco pic hematuri a [id number] Completed 201507/29/2021 Other microsco pic hematuri a;Practi ce ID: 0001 Kari Najera [facility] 17:16:06 Surveill ance of contrace ption Completed 201507/29/2021 Encounte r for surveill ance of contrace ptives, unspecif ied;Prac julian ID: 0001 Kari Najera [facility] 17:16:38 Problem Notes None recorded. Procedures Surgical History Date Name Laterality Status Provider Name and Address Organization Details Recorded Time 07/30/20 21 Date of Last Pap Smear completed [facility] 07/30/2021 09:55:09 07/30/20 18 Tubal Ligation completed [facility] 07/29/2021 17:34:29 02/29/20 18 endometrial biopsy completed [facility] 07/29/2021 17:33:40 08/15/20 12 Breast Biopsy completed [facility] 07/29/2021 17:32:59 12/30/19 03 cholecystectomy completed [facility] 07/29/2021 17:34:42 11/29/19 02 Colposcopy completed [facility] 07/29/2021 17:20:03 Imaging Results None recorded. Procedure Notes None recorded. Medical Equipment None Reported. Allergies Allergen ID Allergen Name Allergen Category Reaction Reaction Severity Criticality Documentation Date Start Date Code Code System Note Provider Name and Address Organization Details Recorded Time 14991 ketorolac medicatio n Not available Not available Not available 07/30/2021 30760 RxNorm Kari Najera [facility] 09:54:01 Medications Name Sig Start Date [...] Prescrib ed Elsewher e: Yes [facility] By: efraín gee DateTime : 10/29/20 11 03:30:00 PM Not Available Not Available Not Available doxycycli ne hyclate 50 mg capsule take 1 capsule by oral route every 12 hours 02/07 completed Prescrib ed Elsewher e: Yes Loca tion: [facility] odify By: mike Alvarez ncounter DateTime : 04/13/20 16 01:00:00 PM Not Available Not Available Not Available Pyridium 200 mg tablet take 1 tablet by oral route 3 times every day after meals 07/30 completed Prescrib ed Elsewher e: No Locat ion: [facility] odify By: carmen tz Encou nter DateTime : 02/10/20 08:15:00 [...] Elsewher e: No Locat ion: [facility] odify By: mike armendariz DateTime : 12/17/19 17 02:43:41 PM Not Available Not Available Not Available Soma 350 mg tablet take 1 tablet by oral route 3 times every day and at bedtime 04/13 completed Prescrib ed Elsewher e: No Locat ion: [facility] odify By: daryl delgado DateTime : 12/26/19 16 05:30:00 PM Not Available Not Available Not [...] Elsewher e: No Locat ion: [facility] odify By: andrew jianguntjessica DateTime : 02/14/20 19 09:38:29 AM Not Available Not Available Not Available nystatin 100,000 unit/gram topical cream 02/16 completed Not Available Not Available Not Available Synthroid 88 mcg tablet take 1 tablet by oral route every day 04/13 completed Prescrib ed Elsewher e: Yes Loca tion: [facility] odify By: daryl delgado DateTime : 09/20/20 14 02:00:00 PM Not Available Not Available Not Available Synthroid 50 mcg tablet take 1 tablet by oral route every day 02/16 completed Prescrib ed Elsewher e: Yes Loca tion: [facility] odify By: mike armendariz DateTime : 04/20/20 16 03:15:00 PM Not Available Not Available Not Available Adipex-P 37.5 mg capsule take 1 capsule by oral route every day before breakfas t 09/20 completed Prescrib ed Elsewher e: Yes Loca tion: [facility] odify By: efraín gee DateTime : 03/15/20 14 04:30:00 PM Not Available Not Available Not Available Vitamin D2 1,250 mcg (50,000 unit) capsule take 1 capsule (51531OD ITS) by oral route every week 03/15 completed Prescrib ed Elsewher e: No Locat ion: [facility] odify By: isabel armendariz DateTime : 08/31/20 13 09:42:50 AM Not [...] Prescrib ed Elsewher e: No Locat ion: [facility] odify By: andrew armendariz DateTime : 02/10/20 19 08:15:00 AM Not Available Not Available Not Available Wellbutri n XL 300 mg 24 hr tablet, extended release take 1 tablet by oral route every day 02/07 completed Prescrib ed Elsewher e: No Locat ion: [facility] odify By: mike armendariz DateTime : 12/14/19 [...] Prescrib ed Elsewher e: No Locat ion: [facility] odify By: mike armendariz DateTime : 02/08/20 18 01:45:00 PM Not Available Not Available Not Available Lo Loestrin Fe 1 mg-10 mcg (24)/10 mcg (2) tablet take 1 tablet by oral route every day 01/04 completed Prescrib ed Elsewher e: No Locat ion: [facility] odify By: mike armendariz DateTime : 09/07/20 16 09:42:20 AM Not [...] Updated DateTime 02/17/2024 160.02 cm 45.5 kg/m2 668564.2 4 g 136 mm[Hg] 91 mm[Hg] Sabi Roca [facility] 4 10:12:21 Date Recorded Body height Body mass index (BMI) Body weight Systolic blood pressure Diastolic blood pressure Provider Name and Address Organization Details Last Updated DateTime 07/30/2021 161.93 cm 46.7 kg/m2 974852.9 4 g 127 mm[Hg] 84 mm[Hg] Kari Najera [facility] 09:53:20 Social History Question Answer Notes LastModified by Organizat ion Details LastModified Time Tobacco Smoking Status Never Smoker Kari Najera [facility] 07/30/2021 09:56:22 If You Are , What Was Your Level Of Alcohol Consumption Prior To ? None Information not available 07/30/2021 Are You Blind Or Do You Have Difficulty Seeing? No [email or web address] Information n ot available 07/30/2021 What Is Your Level Of Caffeine Consumption? Occasional [email or web address] Information not available 07/30/2021 In The 14 Days Before Symptom Onset, Have You Had Close Contact With A Laboratory-confirm ed COVID-19 While That Case Was Ill? No [email or web address] Information n ot available 07/30/2021 In The 14 Days Before Symptom Onset, Have You Had Close Contact With A Person Who Is Under Investigation For COVID-19 While That Person Was Ill? No [email or web address] Information not available 07/30/2021 Have You Been To An Area Known To Be High Risk For COVID-19? No [email or web address] Information not available 07/30/2021 Are You Deaf Or Do You Have Serious Difficulty Hearing? No Information not available 07/30/2021 What Type Of Diet Are You Following? REGULAR [email or web address] Information n ot available 07/30/2021 Do You Use Your Seat Belt Or Car Seat Routinely? Yes [email or web address] Information not available 07/30/2021 Do You Have Smoke And Carbon Monoxide Detectors In Your Home? Yes [email or web address] Information not available 07/30/2021 Do You Use Sunscreen Routinely? Yes [email or web address] Information not available 07/30/2021 Has Tobacco Cessation Counseling Been Provided? No [email or web address] Information not available 07/30/2021 Sex: Unknown Functional Status Question Answer Note LastModified by Organizat ion Details LastModified Time Do you use any illicit or recreational drugs? No [email or web address] Information not available 07/30/2021 Do you or have you ever used any other forms of tobacco or nicotine? No [email or web address] Information not available 07/30/2021 What is your level of alcohol consumption? Occasional [email or web address] Information not available 07/30/2021 Are you able to walk? YESWOREST [email or web address] Information not available 07/30/2021 What is your exercise level? Occasional [email or web address] Information not available 07/30/2021 Mental Status Question Answer Note LastModified by Organization D etails LastModified Time Do you feel stressed (tense, restless, nervous, or anxious, or unable to sleep at night)? [id number] [email or web address] Information not available 07/30/2021 Family History Relationship Description Onset Age of this Age Resolved Age Notes LastModified by Organization Details LastModified Time Maternal Aunt Malignant tumor of colon [email or web address] Not available 07/29 17:29:59 Maternal Aunt Heart disease [email or web address] Not available 07/29 17:30:47 Paternal Grandmother Malignant tumor of breast [email or web address] Not available 07/29 17:30:21 Maternal Grandmother Malignant tumor of breast [email or web address] Not available 07/29 17:30:21 Maternal Grandmother Malignant neoplasm of liver [email or web address] Not available 07/29 17:32:14 Mother Heart disease [email or web address] Not available 07/29 17:30:47 Mother Hypertensive disorder Not available 07/29 17:31:17 Maternal Uncle Heart disease [email or web address] Not available 07/29 17:30:47 Sister Hypertensive disorder [email or web address] Not available 07/29 17:31:17 Sister Diabetes mellitus Not available 07/29 17:31:31 Father Diabetes mellitus [email or web address] Not available 07/29 17:31:42 Father Hypertensive disorder [email or web address] Not available 07/29 17:32:24 Notes:Father: Diabetes melli [...] SNOMED-CT Code Diagnosis ICD10 Code Diagnosis Note [id number] Solange Ye CNM [place] [address] [address] 07/30/2021 09:41:09 07/30/2021 15:54:38 Gynecologic examination 47531448 Z01.419 Dyspareunia 03747739 N94 .10 f/u pending [id number] Austen Macario MD [place] [address] [address] 08/01/2021 16:05:54 08/01/2021 16:54:26 Dyspareunia 50608240 N94.10 [id number] ALCIDES Isaac [place] [address] [address] 02/17/2024 10:04:57 02/17/2024 10:41:21 Gynecologic examination 65426487 Z01.419 WWEBC - BTLpap updateddec lined STI screenmamm ogram order givencolon oscopy UTDroutine labs/PCPge netic testing discussed/ fam hx reviewedBP precaution s reviewedRT C in 1 yr or sooner if needed Suggested Calcium with Vitamin D daily. Patient advised to get an annual flu shot in the fall and she could obtain at [facility] or [facility] clinic. Also to obtain TDap vaccinatio n [...] email. Screening for malignant neoplasm of breast 209238958 Z12.39 Health Concerns Section Related Observation LastModified by Organization Detai ls LastModified Time None Recorded Concern Status LastModified by Organization Details LastModified Time None Recorded Advance Directives Directive None Recorded Payers Encounter Date Sequence Insurance Name Policy Number Policy Castro Covered Member ID Castro Member ID Guarantor Name 07/30/2021 1 [employer] - DOS PRIOR TO 21 - [facility] BENEFITS PLAN [id number] Austin Mckeon [id number] OI Austin Dong 08/01/2021 1 [employer] - DOS PRIOR TO 21 - [facility] BENEFITS PLAN [id number] Austin Mckeon [id number] OI Austin Dong 02/17/2024 1 [employer] - [facility] BENEFITS PLAN [id number] Austin Dong [id number] OI Austin Dong Notes Date Note Type [...] again Solange Ye CNM [address], [place], [address], [facility] 07/30/2021 10:58:55 02/17/2024 text/html Annual [...] to repeat ALCIDES Isaac [address], [place], [address], [place] [facility] 02/17/2024 10:36:51 OBGyn Episode Ob Episode Information Episode Created Date Number of Fetuses Patient Bloodtype Patient rh Status Prepregnancy Weight lbs Domestic Partner Domestic Partner Phone Father Name Manager Erp Status 07/29/20 21 1 CLOSED Fetus Data First Name Last Name Admitted to NICU Weight (g) Sex Living Outcome Pediatric Complications Fetus ID Race Codes Race Delivery Type , Induced 62325 Solomon Calculation Initial Solomon Date Initial Exam [...] Post Complications Tubal Sterilization Discharge Date Comments Discharge Information Feeding Method Contraceptive Method Maternal HG B and HCT Levels Ob Episode Information Episode Created Date Number of Fetuses Patient Bloodtype Patient rh Status Prepregnancy Weight lbs Domestic Partner Domestic Partner Phone Father Name Manager Erp Status 07/29/20 21 1 CLOSED Fetus Data First Name Last Name Admitted to NICU Weight (g) Sex Living Outcome Pediatric Complications Fetus ID Race Codes Race Delivery Type 3373.36 3704 F Full Term 24611 Vaginal Delivery Solomon Calculation Initial Solomon Date Initial Exam Date Initial Exam Provider Initial Ultrasound Date Last Menstrual Period Date Ultra Sound Weeks Gestation 0 Eighteen To Twenty Week Solomon Update Ultra Sound Date Fundal Height At Umbil Quickening Date Ultra Sound Latest Weeks Gestation Final Solomon Confirmed By Final Soolmon Confirmed Date Final Solomon Date Ultra Sound [...] Domestic Partner Domestic Partner Phone Father Name Manager Erp Status 07/29/20 21 1 CLOSED Fetus Data First Name Last Name Admitted to NICU Weight (g) Sex Living Outcome Pediatric Complications Fetus ID Race Codes Race Delivery Type 3770.25 6704 M Full Term 74285 Vaginal Delivery Solomon Calculation Initial Solomon Date [...] Domestic Partner Domestic Partner Phone Father Name Manager Erp Status 07/29/20 21 1 CLOSED Fetus Data First Name Last Name Admitted to NICU Weight (g) Sex Living Outcome Pediatric Complications Fetus ID Race Codes Race Delivery Type , Spontane ous 04460 Solomon Calculation Initial Solomon Date Initial Exam [...] Domestic Partner Domestic Partner Phone Father Name Manager Erp Status 07/29/20 21 1 CLOSED Fetus Data First Name Last Name Admitted to NICU Weight (g) Sex Living Outcome Pediatric Complications Fetus ID Race Codes Race Delivery Type 4110.45 0704 M Full Term 52012 Vaginal Delivery Solomon Calculation Initial Solomon Date [...] Domestic Partner Domestic Partner Phone Father Name Manager Erp Status 07/29/20 21 1 CLOSED Fetus Data First Name Last Name Admitted to NICU Weight (g) Sex Living Outcome Pediatric Complications Fetus ID Race Codes Race Delivery Type , Spontane ous [id number] Solomon Calculation Initial Solomon Date Initial Exam [...]
[2025-05-02 09:53] LABS: Thyroid Stimulating Hormone 0.244 uIU/mL (0.465-4.680)
[2025-05-02 11:10] LABS: Free T4 Free Thyroxine 1.74 ng/dL (0.78-2.19)
== END 2025-05-02 08:47 | disposition home or self-care (01) ==
LOC: ANHLAB 08:48
PROVIDERS: PCP Family Medicine; Visit Provider Family Medicine
DX: E03.9 Hypothyroidism, unspecified (principal)
CPT/HCPCS: 36415; 84439; 84443

== ENCOUNTER 2025-06-15 11:02 | Observation (INO) | payer OTHER, SELFPAY ==
--- NOTE | ~2025-06-15 | CT_ITS ---
CT of the Abdomen and Pelvis: Indication: Bloody diarrhea Technique: 2.5 mm axial scans were obtained through the abdomen and pelvis following intravenous adm inistration of 100 cc of Omnipaque 350. Dose reduction technique was used on this scan by utilizing a utomated exposure control and iterative reconstruction technique. The dose-length product (DLP) was 1 297.37 mGy-cm. COMPARISON: 03/28/2025 Findings: Scans through the lung bases are unremarkable. The liver, spleen, pancreas, adrenals and kidneys are within normal limits. Cholecystectomy clips are present. No evidence of aortic aneurysm. No lymphadenopathy. Questionable mild wall thickening of the distal descending colon, spot hepatic flexure, and proximal transverse colon. No bowel obstruction. No abscess or free air. Images through the pelvis were performed. Urinary bladder unremarkable. No pelvic mass seen. No ascit es. Impression: Questionable mild wall thickening of the right colon, as above, versus underdistention. Correlate for infectious/inflammatory colitis. Reviewed, dictated and finalized at location . Impression: Questionable mild wall thickening of the right colon, as above, versus underdis tention. Correlate for infectious/inflammatory colitis.
--- OUTSIDE RECORDS SUMMARY | 2025-06-15 11:05 | XMS_ITS | Encounter Summary ---
Author Organization [facility] Address [address] [place] [address] Care Team Providers Care Hub Cutter Apprentice Name Role Phone Trey Shen MD Primary Care Provider [phone] Encounter Details Date Type Department Care Team (Late st Contact Info) Description 06/13/2025 External Device Data STL ABSTRACTION Provider, Abstract NO ADDRESS ON FILE Social History Tobacco Use Types Packs/Day Years Used Date Smoking Tobacco: Never Smokeless Tobacco: Never Alcohol Use Standard Drinks/Week Comments Never 0 (1 standard drink = 0.6 oz pur e alcohol) Comments Unknown Sex and Gender Information Value Date Recorded Sex Assigned at Not on file 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 Gender Identity Not on file Sexual Orientation Not on file documented as of this encounter Plan of Treatment Upcoming Encounters Date Type Department Care Team (Late st Contact Info) Description 07/25/2025 9:00 AM CDT Office Visit [facility]3] Oncology and Hematology - Conner [address] [facility] [address] [place] [address] Neal Mena MD [address] [facility] [address] [place] [address] documented as of this encounter Visit Diagnoses Not on filedocumented in this encounter Care Teams Hub Cutter Apprentice Relationship Specialty Start Date End Date Trey Shen MD [address] [facility] [address] [place] [address] PCP - General Family Practice 05/02/25 documented as of this encounter
--- OUTSIDE RECORDS SUMMARY | 2025-06-15 11:05 | XMS_ITS | Encounter Summary ---
Author Organization [facility] [employer] [facility] Address [address] [place] [address] Care Team Providers Care Equipment Operator Name Role Phone Trey Shen MD Primary Care Provider [phone] Encounter Details Date Type Department Care Team (Late st Contact Info) Description 06/13/2025 Orders Only [facility] Oncology and Hematology [facility] [address] [place] [address] Neal Mena MD [address] [employer] [address] [place] [address] Social History Tobacco Use Types Packs/Day Years Used Date Smoking Tobacco: Never Smokeless Tobacco: Never Alcohol Use Standard Drinks/Week Comments Never 0 (1 standard drink = 0.6 oz pur e alcohol) Comments Unknown Sex and Gender Information Value Date Recorded Sex Assigned at Not on file Legal Sex Female 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 Gender Identity Not on file Sexual Orientation Not on file documented as of this encounter Plan of Treatment Upcoming Encounters Date Type Department Care Team (Late st Contact Info) Description 07/25/2025 9:00 AM CDT Office Visit [facility] Oncology replaced [facility] Hematology [facility] [address] [place] [address] Neal Mena MD [address] [place] [address] documented as of this encounter Procedures Procedure Name Priority Date/Time Associated Diagnosis Comments BASIC METABOLIC PANEL Routine 06/13/2025 1:41 PM CDT COMPREHENSIVE METABOLIC PANEL Routine 06/13/2025 1:25 PM CDT documented in this encounter Results * BASIC METABOLIC PANEL (06/13/2025 1:41 PM CDT) Blood us Nela Mena MD CHEMISTRY ORDERABLES Final Resu lt * COMPREHENSIVE METABOLIC PANEL (06/13/2025 1:25 PM CDT) Blood us Neal Mena MD CHEMISTRY ORDERABLES Final Resu lt documented in this encounter Visit Diagnoses Not on filedocumented in this encounter Care Teams Equipment Operator Relationship Specialty Start Date End Date Trey Shen MD [address] [facility] [address] [facility] 120 [place] [address] PCP - General Family Practice 05/02/25 documented as of this encounter
--- OUTSIDE RECORDS SUMMARY | 2025-06-15 11:05 | XMS_ITS | Referral Summary ---
Author Organization [facility] [address] [place] [address] Care Team Providers Care Supervisor Food Checkers And Cashiers Name Role Phone Trey Shen MD Primary [...] 12/05/2024 Assessment & Plan (12/05/2024 3:05 PM MS SQL SERVER DEVELOPER): I counseled the patient on exercise: Recommend [...] 12/05/2024 Assessment & Plan (12/05/2024 3:57 PM MS SQL SERVER DEVELOPER): Patient's highest BMI was 48.6 ; initial BMI was 46.8; this has improved to 41.07 through medical management Vitamin D deficiency 09/12/2024 Assessment & Plan (12/05/2024 3:06 PM MS SQL SERVER DEVELOPER): Continue vitamin-D supplementation Assessment & Plan (09/12/2024 4:10 PM CDT): start vitamin-D replacement 5,000IU daily Encounter for weight loss counseling 07/11/2024 Assessment & Plan (12/05/2024 3:05 PM MS SQL SERVER DEVELOPER): Reviewed importance of adequate protein intake. Reviewed [...] 07/11/2024 Assessment & Plan (12/05/2024 3:05 PM MS SQL SERVER DEVELOPER): Obesity is one of the leading risk [...] 03/21/2018 Assessment & Plan (12/05/2024 4:18 PM MS SQL SERVER DEVELOPER): Reviewed most recent labs. Continue low carb, [...] 03/21/2018 Assessment & Plan (12/05/2024 3:05 PM MS SQL SERVER DEVELOPER): Continue current dose of levothyroxine. Assessment & [...] on file Legal Sex Female 7:08 PM MS SQL SERVER DEVELOPER Gender Identity Not on file Sexual [...] (239 lb 6.4 oz) 12/05/2024 3:55 PM MS SQL SERVER DEVELOPER Height 162.6 cm (5' 4.02) 12/05/2024 3:55 PM CS T Body Mass Index 41.07 12/05/2024 3:55 PM MS SQL SERVER DEVELOPER Plan of Treatment Not on file Insurance [facility] [id number] Care Teams Supervisor Food Checkers And Cashiers Relationship Specialty Start Date End Date Trey Shen MD [address] [facility] 120 [place] [address] PCP - General Family Medicine 03/10/18
--- OUTSIDE RECORDS SUMMARY | 2025-06-15 11:05 | XMS_ITS | Encounter Summary ---
Author Organization [facility] Address 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 200 [place] [address] Neal Mena MD [address] [facility] [address] [place] [address] documented as of this encounter Procedures Procedure Name Priority Date/Time Associated Diagnosis Comments CBC WITH DIFFERENTIAL Stat 03/15/2009 10:24 PM CDT C-REACTIVE PROTEIN Stat 03/15/2009 10 :24 PM CDT COMPREHENSIVE METABOLIC PANEL Stat 03/15/2009 10:24 PM CDT documented in this encounter Results * C-REACTIVE PROTEIN (03/15/2009 10:24 PM CDT) CRP 0.7 0.0 - 0.8 mg/dL [facility] Blood specimen (specimen) 03/15/2009 10:24 PM CDT 03/15/2009 10:40 PM CDT us Juan Carranza MD CHEMISTRY ORDERABLES Final Resu lt INTERFACE SYSTEM Refer to clinic/hospital department [facility] CLIA# [id number] [address] [facility] [place] [address] * (ABNORMAL) COMPREHENSIVE METABOLIC PANEL (03/15/2009 10:24 PM CDT) Pathologist [facility] CREATININE 0.60 0.51 - 0.95 mg/dL [facility] [...] and non- Americans is available on the [facility] Intranet at: [email or web address] Select: Lab Policies and Procedures Select: Reference Ranges - GFR Blood specimen (specimen) 03/15/2009 10:24 PM CDT 03/15/2009 10:40 PM CDT Juan Carranza MD CHEMISTRY ORDERABLES Edited INTERFACE SYSTEM Refer to clinic/hospital department [facility] CLIA# [id number] [address] [place] [address] * (ABNORMAL) CBC WITH DIFFERENTIAL (03/15/2009 10:24 [...] LAB LYMPHOCYTES 17 16 - 45 % [facility] LYMPHOCYTE ABSOLUTE 1.84 0.70 - 4.50 K/uL [facility] BASOPHILS 0 0 - 2 % [facility] BASOPHILS ABSOLUTE 0.01 0.00 - 0.20 K/uL [facility] MONOCYTES 7 3 - 13 % [facility] MONOCYTE ABSOLUTE 0.72 0.10 - 1.30 K/uL [facility] NEUTROPHILS 75(H) 45 - 70 % [facility] NEUTROPHIL ABSOLUTE 8.05(H) 1.90 - 7.00 K/uL [facility] EOSINOPHILS 1 0 - 7 % [facility] EOSINOPHIL ABSOLUTE 0.07 0.00 - 0.70 K/uL [facility] Blood specimen (specimen) 03/15/2009 10:24 PM CDT 03/15/2009 10:40 PM CDT us Juan Carranza MD HEMATOLOGY ORDERABLES Edited INTERFACE SYSTEM Refer to clinic/hospital department [facility] CLIA# [id number] [address] [place] [address] documented in this encounter Visit Diagnoses Not on filedocumented in this encounter Care Teams Biology Adjunct Instructor Relationship Specialty Start Date End Date Trey Shen MD [address] [facility] 120 [place] [address] PCP - General Family Practice 6/4/25 documented as of this encounter
--- OUTSIDE RECORDS SUMMARY | 2025-06-15 11:05 | XMS_ITS | Clinical Summary ---
Author Organization [facility] [address] [place] [address] Care Team Providers Care Data Integration Architect Name Role Phone Trey Shen MD Primary [...] 12/05/2024 Assessment & Plan (12/05/2024 3:05 PM INNOVATIONS PARAPROFESSIONAL): I counseled the patient on exercise: Recommend [...] 12/05/2024 Assessment & Plan (12/05/2024 3:57 PM INNOVATIONS PARAPROFESSIONAL): Patient's highest BMI was 48.6 ; initial BMI was 46.8; this has improved to 41.07 through medical management Vitamin D deficiency 09/12/2024 Assessment & Plan (12/05/2024 3:06 PM INNOVATIONS PARAPROFESSIONAL): Continue vitamin-D supplementation Assessment & Plan (09/12/2024 4:10 PM CDT): start vitamin-D replacement 5,000IU daily Encounter for weight loss counseling 07/11/2024 Assessment & Plan (12/05/2024 3:05 PM INNOVATIONS PARAPROFESSIONAL): Reviewed importance of adequate protein intake. Reviewed [...] 07/11/2024 Assessment & Plan (12/05/2024 3:05 PM INNOVATIONS PARAPROFESSIONAL): Obesity is one of the leading risk [...] 03/21/2018 Assessment & Plan (12/05/2024 4:18 PM INNOVATIONS PARAPROFESSIONAL): Reviewed most recent labs. Continue low carb, [...] 03/21/2018 Assessment & Plan (12/05/2024 3:05 PM INNOVATIONS PARAPROFESSIONAL): Continue current dose of levothyroxine. Assessment & [...] the week, 7 tabs have been taken. Surgical History Surgery Date Site/Laterality Comments CHOLECYSTECTOMY [...] on file Legal Sex Female 7:08 PM INNOVATIONS PARAPROFESSIONAL Gender Identity Not on file Sexual Orientation [...] (239 lb 6.4 oz) 12/05/2024 3:55 PM INNOVATIONS PARAPROFESSIONAL Height 162.6 cm (5' 4.02) 12/05/2024 3:55 PM CS T Body Mass Index 41.07 12/05/2024 3:55 PM INNOVATIONS PARAPROFESSIONAL Plan of Treatment Health Maintenance Due Date [...] this topic Insurance [facility] [id number] Care Teams Data Integration Architect Relationship Specialty Start Date End Date Trey Shen MD [address] [facility] 120 [place] [address] PCP - General Family Medicine 03/10/18
--- OUTSIDE RECORDS SUMMARY | 2025-06-15 11:05 | XMS_ITS | Clinical Summary ---
[facility] Address [address] [place] [address] Care Team Providers Care Infusion Rn Name Role Phone Trey Shen MD Primary Care Provider [phone] Allergies Active Allergy Reactions Criticality Noted Date Comments Ketorolac Hypertension Medium 02/02/2025 Tachycardia Medications levothyroxine 175 mcg tablet Take 1 Tablet by mouth daily. 5 Active traMADoL (ULTRAM) 50 mg tablet 5 Active sertraline (ZOLOFT) 50 mg tablet Take 1 Tablet by mouth daily. 5 Active lidocaine-pril ocaine (EMLA) 2.5-2.5 % Cream Apply to affected area see administration instructions. 30 Gram 1 5 Active valACYclovir (VALTREX) 500 mg tablet Take 1 Tablet (500 mg) by mouth daily. 90 Tablet 5 Active fluconazole (DIFLUCAN) 100 mg tablet Take 1 Tablet (100 mg) by mouth daily. 7 Tablet 3 5 Active dexAMETHasone (DECADRON) 4 mg tabletIndicati ons:Malignant neoplasm of upper-outer quadrant of left breast in female, estrogen receptor positive (CMS/HCC) Take 2 tablets by mouth BID day before, day of, and day after treatment with Docetaxel. 12 Tablet 2 5 Active ondansetron (ZOFRAN) 8 mg Tablet Take 1 Tablet (8 mg) by mouth every 8 hours as needed for Nausea/Emesis. 30 Tablet 1 5 Active diphenoxylate- atropine 2.5 mg-0.025 mg tablet Take 1 Tablet by mouth 4 times daily as needed for Diarrhea/Loose Stools. 30 Tablet Active Active Problems No known active problems Encounters Date Type Department Care Team Description 06/15/2025 Telephone [facility] Oncology and Hematology [facility] [address] [place] [address] Neal Mena MD Blood in stool 06/13/2025 9:00 AM CDT Office Visit [facility] Oncology and Hematology [facility] [address] [place] [address] Neal Mena MD Malignant neoplasm of upper-outer quadrant of left breast in female, estrogen receptor positive (CMS/HCC) (Primary Dx) 06/13/2025 External Device Data STL ABSTRACTION Provider, Abstract 06/13/2025 Orders Only [facility] Oncology and Hematology - [place]ner [address] [place] [address] Neal Mena MD 06/04/2025 Orders Only [facility] Oncology and Hematology - [place] [address] [place] [address] Neal Mena MD Malignant neoplasm of upper-outer quadrant of left breast in female, estrogen receptor positive (CMS/HCC) 05/28/2025 Orders Only [facility] Oncology and Hematology - [place] [address] [place] [address] Neal Mena MD 05/24/2025 Orders Only [facility] Oncology and Hematology - [place] Sand[address] [place] [address] Neal Mena MD 05/23/2025 9:30 AM CDT Office Visit [facility] Oncology and Hematology - Romeo [address] [place] [address] Neal Mena MD Malignant neoplasm of upper-outer quadrant of left breast in female, estrogen receptor positive (CMS/HCC) (Primary Dx) 05/21/2025 Orders Only [facility] Oncology and Hematology - [place] [address] Neal Mena MD Malignant neoplasm of upper-outer quadrant of left breast in female, estrogen receptor positive (CMS/HCC) 05/16/2025 External Device Data STL ABSTRACTION Provider, Abstract 05/11/2025 Orders Only [facility] Oncology and Hematology - [place] [address] Neal Mena MD 05/10/2025 Orders Only [facility] Oncology and Hematology - [place] [address] [place] [address] Neal Mena MD 05/10/2025 Telephone [facility] Oncology and Hematology - [place] [address] [place] [phone] Neal Mena MD Lab Results 05/10/2025 Telephone [facility] Oncology and Hematology - [place] [address] [place] [address] Neal Mena MD Dizziness 05/07/2025 Orders Only [facility] Oncology and Hematology - [place] [address] [place] [address] Neal Mena MD Malignant neoplasm of upper-outer quadrant of left breast in female, estrogen receptor positive (CMS/HCC) 05/02/2025 9:00 AM CDT Office Visit [facility] Oncology and Hematology - [place]ner [address] [place] [address] Neal Mena MD Malignant neoplasm of upper-outer quadrant of left breast in female, estrogen receptor positive (CMS/HCC) (Primary Dx) 05/02/2025 Abstract [facility] Oncology and Hematology - [place] [address] [place] [address] Neal Mena MD 05/02/2025 Orders Only [facility] Oncology and Hematology - [place] [address] [place] [phone] Neal Mena MD 05/01/2025 External Device Data STL ABSTRACTION Provider, Abstract 05/01/2025 Telephone [facility] Oncology and Hematology - [place] [address] [place] [phone] Neal Mena MD Upper Respiratory Symptoms 04/23/2025 Orders Only [facility] Oncology and Hematology - [place] [address] [place] [phone] Neal Mena MD Malignant neoplasm of upper-outer quadrant of left breast in female, estrogen receptor positive (CMS/HCC) 04/19/2025 External Device Data STL ABSTRACTION Provider, Abstract 04/19/2025 External Device Data STL ABSTRACTION Provider, Abstract 04/18/2025 External Device Data STL ABSTRACTION Provider, Abstract 04/18/2025 Telephone [facility] Oncology and Hematology - [place] [address] Results 04/12/2025 Orders Only [facility] Oncology and Hematology - [place] [address] Neal Mena MD 04/09/2025 Telephone [facility] Oncology and Hematology - [place] [address] [place] [phone] Neal Mena MD Mdication Questions 04/09/2025 Orders Only [facility] Oncology and Hematology - [place] [address] [place] [address] Neal Mena MD Malignant neoplasm of upper-outer quadrant of left breast in female, estrogen receptor positive (CMS/HCC) 03/30/2025 Abstract [facility] Oncology and Hematology - [place] [address] Neal Mena MD 03/29/2025 Orders Only [facility] Oncology and Hematology - [place] [address] [place] [address] Neal Mena MD 03/28/2025 Telephone [facility] Oncology and Hematology - [place] [address] [place] [address] Neal Mena MD Blood In Stool 03/26/2025 Telephone [facility] Oncology and Hematology - [place] [address] [place] [phone] Lelia Garcia MD Thrush 03/26/2025 Orders Only [facility] Oncology and Hematology - [place] [address] [place] [address] Neal Mena MD Malignant neoplasm of upper-outer quadrant of left breast in female, estrogen receptor positive (CMS/HCC) 03/21/2025 9:00 AM CDT Office Visit [facility] Oncology and Hematology - [place] [address] [place] [address] Lelia Garcia MD Malignant neoplasm of upper-outer quadrant of left breast in female, estrogen receptor positive (CMS/HCC) (Primary Dx) 03/21/2025 Orders Only [facility] Oncology and Hematology - [place] [address] [place] [address] Neal Mena MD 03/19/2025 Orders Only [facility] Oncology and Hematology - [place] [address] [place] [address] Neal Mena MD Malignant neoplasm of upper-outer [...] on file Legal Sex Female 5:43 AM CLINICAL STATISTICS MANAGER Gender Identity Not on file Sexual Orientation Not on file Last Filed Vital Signs Vital Sign Reading Time Taken Comments Blood Pressure 133/83 06/13/2025 9:10 AM CDT Pulse 90 06/13/2025 9:10 AM CDT Temperature 36.2 C (97.2 F) 06/13/2025 9:10 AM CDT Respiratory Rate 16 06/13/2025 9:10 AM CDT Oxygen Saturation 97% 06/13/2025 9:10 AM CDT Inhaled Oxygen Concentration - - Weight 108 kg (238 lb 3.2 oz) 06/13/2025 9:10 AM CDT Height 162.6 cm (5' 4) 02/02/2025 1:46 PM CLINICAL STATISTICS MANAGER Body Mass Index 40.89 02/02/2025 1:46 PM CLINICAL STATISTICS MANAGER Plan of Treatment Upcoming Encounters Date Type Department Care Team (Late st Contact Info) Description 07/25/2025 9:00 AM CDT Office Visit [facility] Oncology and Hematology [facility] [address] [place] [address] [facility] [[email or web address] [address] [place] [address] Neal Mena MD [address] [facility] [address] [place] [address] Health Maintenance Due Date Last [...] Q 5 years 2023 INFLUENZA VACCINE (#1) 2025 CERVICAL CANCER SCREENING 02/16/2027 PAP SMEAR 02/16/2027 02/17/2024 Procedures Procedure Name Priority Date/Time Associated Diagnosis Comments BASIC METABOLIC PANEL Routine 06/13/2025 1:41 PM CDT COMPREHENSIVE METABOLIC PANEL Routine 06/13/2025 1:25 PM CDT BASIC METABOLIC PANEL Routine 05/23/2025 4:14 PM CDT COMPREHENSIVE METABOLIC PANEL Routine 05/23/2025 4:11 PM CDT CBC WITH DIFFERENTIAL Routine 05/17/2025 3:54 PM CDT BASIC METABOLIC PANEL Routine 05/10/2025 3:54 PM CDT CBC WITH AUTODIFFERENTIAL Routine 2024 3:53 PM CDT CHG CA 15 3 Routine 05/02/2025 1:56 PM CDT BASIC METABOLIC PANEL Routine 05/02/2025 1:53 PM CDT CBC WITH DIFFERENTIAL Routine 05/02/2025 1:45 PM CDT BASIC METABOLIC PANEL Routine 04/11/2025 11:03 AM CDT CBC WITH DIFFERENTIAL Routine 03/28/2025 3:15 PM CDT CBC WITH DIFFERENTIAL Routine 03/28/2025 2:[address] ABDOMEN PELVIS W CONTRAST Routine 03/28/2025 1:39 PM CDT BASIC METABOLIC PANEL Routine 03/21/2025 12:56 PM CDT COMPREHENSIVE METABOLIC PANEL Routine 03/21/2025 11:55 AM CDT CANCER ANTIGEN 15-3 Routine 03/21/2025 1 1:46 AM CDT from Last 3 Months Results * BASIC METABOLIC PANEL (06/13/2025 1:41 PM CDT) Only the most recent of6 resultswithin the time period is included. Blood us Neal Mena MD CHEMISTRY ORDERABLES Final Resu lt * COMPREHENSIVE METABOLIC PANEL (06/13/2025 1:25 PM CDT) Only the most recent of3 resultswithin the time period is included. Blood us Neal M Trina MD CHEMISTRY ORDERABLES Final Resu lt * CBC WITH DIFFERENTIAL (05/17/2025 3:54 PM CDT) Only the most recent of4 resultswithin the time period is included. Blood us Neal Mena MD HEMATOLOGY ORDERABLES Final Res ult * CBC WITH AUTODIFFERENTIAL (05/10/2025 3:53 PM CDT) Blood us Neal Mena MD HEMATOLOGY ORDERABLES Final Res ult * CHG CA 15 3 (05/02/2025 1:56 PM CDT) Result [facility] us Neal Mena MD CHG - LABORATORY Final Result * CT ABDOMEN PELVIS W CONTRAST (03/28/2025 1:39 PM CDT) Anatomical Region Laterality Modality Abdomen Computed Tomogra phy Result [facility] us Neal Mena MD CT ORDERABLES Final Result * CANCER ANTIGEN 15-3 (03/21/2025 11:46 AM CDT) Blood us Neal Mena MD CHEMISTRY ORDERABLES Final Resu lt from Last 3 Months Insurance [facility] [employer] Care Teams Infusion Rn Relationship Specialty Start Date End Date rTey Shen MD [address] [facility] [address] [place] [address] PCP - General Family Practice 05/02/25
--- OUTSIDE RECORDS SUMMARY | 2025-06-15 11:05 | XMS_ITS | Data Portability ---
Author Organization [facility], Main Office Address [address] [place] [address] Assessment No assessment recorded. Plan of Treatment Reminders Order Date Submit Date Provider Last Modified By Organization Details Last Modified Time Details Appointments None recorded. Lab None recorded. Referral None recorded. Procedures None recorded. Surgeries None recorded. Imaging audiogram + tympanogram 2023 024 [email or web address] [facility], [address] [place] [address], [place], [address], 5 17:21:49 Medication Orders None recorded. Patient TargetsNo targets recorded. Patient Instructions Encounter Date Encounter Id Patient Instructions Last Modified By Organization Details Last Modified Time 09/13/2024 [id number] alia-hallpike test* [email or web address] Not available 03/12/2025 08:32:13 continue use of meclizine as needed for vertigo symptoms. She will see PT for Alia-Hallpike testing for possible BPPV. We will also obtain an audiogram and tympanogram for further testing. [email or web address] Not available 09/13/2024 16:04:48 Reason for Referral None Reported. Problems Name Problem SNOMED Code Status Onset Date Resolution Date Notes Provider Name and Address Organization Details Recorded Time Vertigo 866193159 Active 2023 Prince Calderon CMA null, [facility] 15:59:06 Sensorineural hearing loss 65680312 Active 2023 Prince Calderon CMA null, [facility] 16:00:48 Benign paroxysmal positional vertigo 124059620 Active 2023 HUGH Arrington [address] [facility] [address], [place], [address] [place] [address] [employer] [facility] 16:03:52 Problem Notes None recorded. Procedures Surgical History Date Name Laterality Status Provider Name and Address Organization Details Recorded Time 07/31/20 19 Tubal Ligation completed Prince Calderon CMA [facility] 09/13/2024 15:42:59 12/30/19 04 cholecystectomy completed Prince Calderon CMA [facility] 09/13/2024 15:42:31 Imaging Results None recorded. Procedure Notes None recorded. Medical Equipment None Reported. Allergies Allergen ID Allergen Name Allergen Category Reaction Reaction Severity Criticality Documentation Date Start Date Code Code System Note Provider Name and Address Organization Details Recorded Time 62608 Toradol medicatio n palpitati ons Not available Not available 09/12/2024 58184 RxNorm Lynn Carter [facility] 12:54:34 55915 Stadol medicatio n palpitati ons Not available Not available 09/13/2024 26008 RxNorm Prince Calderon CABLE TELE[employer]ION [employer] TECHNICIAN [facility] 15:38:10 Medications Name Sig Start Date Stop [...] Not Available No t Available amoxicillin 500 mg-jada narayanan clavulanate 125 mg tablet TAKE 1 TABLET [...] Address Organization Details Last Updated DateTime 09/13/2024 016802.2 g 98 [degF] 45 kg/m2 162.56 cm Prince Calderon CMA [facility] 09/13/2024 15:37:32 Social History Question Answer Notes LastModified by Organizat ion Details LastModified Time Tobacco Smoking Status Never Smoker Lynn Bustamanterhoda sumner [facility] [employer] 09/12/2024 12:56:45 What Is Your Level Of Caffeine Consumption? Occasional Coffee [email or web address] Information not available 09/13/2024 Sex: Unknown Functional Status Question Answer Note LastModified by Organization D etails LastModified Time What is your level of alcohol consumption? None [email or web address] Information not available 09/12/2024 Mental Status None recorded. Family History Relationship Description Onset Age of this Age Resolved Age Notes LastModified by Organization Details LastModified Time Father Diabetes mellitus [email or web address] Not available 2023 15:43:22 Father Family history of stroke [email or web address] Not available 2023 15:43:39 Mother Heart disease [email or web address] Not available 2023 15:43:46 Medical History Condition [...] HAVE YOU BEEN HOSPITALIZED OR SEEN IN [facility] ER IN THE PAST YEAR ? [...] SNOMED-CT Code Diagnosis ICD10 Code Diagnosis Note [id number] Dave Webb MD [facility] [place] [address] [place] [address] 09/13/2024 15:26:45 09/13/2024 16:05:18 Benign paroxysmal positional vertigo 453600767 H81.10 Health Concerns Section Related Observation LastModified by Organization Detai ls LastModified Time None Recorded Concern Status LastModified by Organization Details LastModified Time None Recorded Advance Directives Directive None Recorded Payers Insurance Date Sequence Insurance Name Policy Number Policy Castro Covered Member ID Castro Member ID Guarantor Name 09/13/2024 1 [employer] - OPEN ACCESS Austin Dong [id number] Austin Dong Notes Date Note Type Note [...] also notes if she moves her head [id number] quickly this can also elicit symptoms. She also reports that when her spouse was watching football on the television the other day, this too was causing vertigo like symptoms. Bettie Ibarra, SPECIAL EDUCATION ADMINISTRATOR [address] [facility] [address], [place], [address], [place] - [facility] 09/13/2024 16:04:52 OBGyn Episode No OBEpisode recorded.
--- OUTSIDE RECORDS SUMMARY | 2025-06-15 11:05 | XMS_ITS | Data Portability ---
Author Organization [facility], [place] Address [address] [place] [address] Care Team Providers Care Costing Manager Name Role Phone STEFAN MCLAUGHLIN Primary Care [...] mammogram due to mass found in right [email or web address] Not available 07/30/2021 10:56:08 02/17/2024 02/17/2024 Annual [...] Imaging MAMMO, screening, digital, bilateral 2023 024 [facility], [address], [address], [place], [address], 4 05:01:18 US, pelvis 2020 021 [email or web address] [facility], [address], [place], [address], 07:22:39 US, transvagina l 2020 021 [email or web address] [place], [address], [place], [address], 07:22:39 US, pelvis, complete 2020 [email or web address] Not [...] t Case: [id number] Autho amy g Provi cee: Solange Gambino, FRUIT OR NUT GROWER Colle cted: 07/30 1304 Order ing Locat [...] elial Lesio n or [place] (NIL) Elect ina [...] as clini tyrell mullins nted. Not Available [facility] (Lab) [address], [place], [address], 08/03/2021 19:24:02 02/17/20 24 02/17/2024 IMAGE GUIDE D PAP AND HPV REGAR DLESS image guided Pap, HPV regardless of Pap result SEE RESULT S BELOW CASE REPOR T: Cytol ogy Gynec ologi nas Repor t Case: [id number] Autho amy caputo Provi cee: Arely Del Castillo, FRUIT OR NUT GROWER Colle cted: 02/16 1016 Order ing Locat ion: [place] Patho logy Recei manasa: 02/17 0315 First Scree n: Ilia pickard, Josh ed, CT Rescr een: Salvador Leary, CT Speci men: Vivek cheatham Pap - Image d, Cervi x STATE [...] as clini tyrell warra nted. Not Available [facility] (Lab) [address], [place], [address], 02/22/2024 15:56:44 08/01/20 21 08/01/2021 US, trans alicein al No observ ation record ed. [facility] [address], [place], [address], 08/05/2021 17:01:44 08/01/20 21 08/01/2021 US, earlene amezquita No observ ation record ed. [facility] [address], [place], [address], 08/01/2021 17:08:35 08/01/20 21 08/01/2021 US, trans alicein al No observ ation record ed. [facility] [address], [place], [address], 08/01/2021 17:08:44 Result Notes None recorded. Problems Name Problem SNOMED Code Status Onset Date Resolution Date Notes Provider Name and Address Organization Details Recorded Time Dysfunct ional uterine bleeding Completed 201007/29/2021 DUB;Vicenta julian ID: 0001 Kari Najera [facility] 17:15:12 Nausea [id number] Completed 201007/29/2021 Nausea alone;Pr actice ID: 0001 Kari Najera [facility] 17:16:08 Dysfunct ional uterine bleeding Completed 201008/15/2012 Other disorder s of menstrua tion and other abnormal bleeding from female genital tract;Re corded Elsewher e: No Locat ion: [facility] S ource: [facility] [employer] luz: N Practi ce ID: 0001 Petr lable Time: 03:30:00 PM Kari Najera [facility] 17:15:12 Speciali zed medical examinat ion Completed 201108/15/2012 Gynecolo gical Examinat ion;Toni rded Elsewher e: No Locat ion: [facility] S ource: [facility] [employer] luz: N Vicentati ce ID: 0001 Petr lable Time: 11:30:00 AM Kari Najera [facility] 17:16:34 Screenin g for malignan t neoplasm of cervix Completed 201107/29/2021 Pap Smear;Pr actice ID: 0001 Kari Najera [facility] 17:16:26 Malaise and fatigue 280293515 Completed 201207/29/2021 Fatigue And Malaise; Practice ID: 0001 Kari Najera [facility] 17:16:04 Female genital organ symptoms 430434533 Completed 201207/29/2021 Unspecif ied symptom associat ed with female genital organs;P ractice ID: 0001 Kari sumner, [facility] 17:15:17 Speciali zed medical examinat ion Completed 201207/29/2021 Gynecolo gical Examinat ion;Toni rded Elsewher e: No Locat ion: [facility] S ource: [facility] [employer] luz: N Practi ce ID: 0001 Petr lable Time: 03:00:00 PM Kari Najera [facility], [facility] 17:16:34 Breast lump [id number] Completed 201307/29/2021 Breast Lump Or Mass;Rec orded Elsewher e: No Locat ion: [facility] S ource: [facility] [employer] luz: Y Practi ce ID: 0001 Petr lable Time: 04:30:00 PM Kari Najera [facility], [facility] 17:14:35 Increase d frequenc y of urinatio n [id number] Completed 201307/29/2021 Urinary frequenc y;Record ed Elsewher e: No Locat ion: [facility] S ource: [facility] [employer] luz: N Practi ce ID: 0001 Petr lable Time: 02:00:00 PM Kari sumner [facility] 17:15:59 Adult health examinat ion Completed 201307/29/2021 ROUTINE MEDICAL EXAM;Rec orded Elsewher e: No Locat ion: [facility] S ource: [facility] [employer] [facility] luz: N Practi ce ID: 0001 Petr lable Time: 02:00:00 PM Kari Najera [facility], [facility] 17:14:08 Clinical finding Completed 201507/29/2021 Presence of (intraut erine) contrace ptive device;R ecorded Elsewher e: No Locat ion: [facility] S ource: [facility] luz: N Practi ce ID: 0001 Petr lable Time: 12:45:00 PM Kari Reinaldo sumner, [facility] 17:14:38 Insertio n of intraute rine contrace ptive device Completed 201507/29/2021 Encounte r for insertio n of intraute rine contrace ptive device;R ecorded Elsewher e: No [facility]at ion[facility]: 0001 Petr lable Time: 12:45:00 PM Kari sumner, [facility] 17:16:02 Microsco pic hematuri a [id number] Completed 201507/29/2021 Other microsco pic hematuri a;Practi ce ID: 0001 Kari sumner, [facility] 17:16:06 Surveill ance of contrace ption Completed 201507/29/2021 Encounte r for surveill ance of contrace ptives, unspecif ied;Prac julian ID: 0001 Kari Najera null, [facility] 17:16:[address] Concept Completed 201607/29/2021 Encntr for general adult medical exam w/o abnormal findings ;Recorde d Elsewher e: No Locat ion: [facility] S ource: [facility] luz: N Practi ce ID: 0001 Petr lable Time: 09:30:00 AM Kari Reinaldo sumner [facility] 17:16:30 Removal of intraute rine device Completed 201607/29/2021 Encounte r for removal of intraute rine contrace ptive device;R ecorded Elsewher e: No Locat ion: [facility] Practi ce ID: 0001 Petr lable Time: 08:45:00 AM Kari Reinaldo sumner [facility] 17:16:22 Lesion of ovary Completed 201607/29/2021 Other ovarian cyst, right side;Rec orded Elsewher e: No Locat ion: [facility] S ource: [facility] [employer] luz: N Practi ce ID: 0001 Petr lable Time: 01:30:00 PM Kari Najera [facility], [facility] 17:14:55 Cyst of ovary Completed 201607/29/2021 Unspecif ied ovarian cyst, unspecif ied side;Rec orded Elsewher e: No Locat ion: [facility] Practi ce ID: 0001 Petr lable Time: 01:30:00 PM Kari Reinaldo sumner [facility] 17:14:40 Right lower quadrant pain 448359551 Completed 201607/29/2021 Right lower quadrant pain;Pra ctice ID: 0001 Kari Najera [facility], [facility] 17:16:24 Pelvic and perineal pain 066956211 Completed 201607/29/2021 Pelvic and perineal pain;Pra ctice ID: 0001 Kari Najera null, [facility] 17:16:12 Hypothyr oidism 37092187 Completed 201607/29/2021 Hypothyr oidism, unspecif ied;Prac julian ID: 0001 Kari Najera [facility], [facility] 17:15:57 Depressi ve disorder 16454283 Completed 201607/29/2021 Major depressi ve disorder , single episode, unspecif ied;Prac jluian ID: 0001 Kari sumner, [facility] 17:15:09 Clinical finding Completed 201607/29/2021 Obesity, unspecif ied;Toni rded Elsewher e: No Locat ion: [facility] S ource: [facility] [employer] luz: N Practi ce ID: 0001 Petr lable Time: 01:45:00 PM Kari sumner, [facility] 17:15:29 Acute vaginiti s 43934443 Completed 201607/29/2021 Acute vaginiti s;Practi ce ID: 0001 Kari sumner, [facility] 17:14:06 Pregnanc y test negative [id number] Completed 201707/29/2021 Encounte r for pregnanc y test, result negative ;Practic e ID: 0001 Kari sumner, [facility] 17:16:18 Finding of menstrua l bleeding Completed 201707/29/2021 Excessiv e and frequent menstrua tion with regular cycle;Pr actice ID: 0001 Kari Najera [facility] 17:15:23 Finding of pattern of menstrua l cycle 395315348 Completed 201707/29/2021 Excessiv e and frequent menstrua tion with irregula r cycle;Pr actice ID: 0001 Kari sumner [facility] 17:15:25 Finding of regulari ty of menstrua l cycle Completed 201707/29/2021 Irregula r menstrua tion, unspecif ied;Prac julian ID: 0001 Kari sumner [facility] 17:15:27 Female genitali a finding Completed 201707/29/2021 Foreign body in vulva and vagina, sequela; Practice ID: 0001 Kari sumner [facility] 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 17:16:11 Pain in female genitali a Completed 201707/29/2021 Dysmenor xander, unspecif ied;Prac julian ID: 0001 Kari Reinaldo sumner, [facility] 17:15:19 Steriliz ation procedur e Completed 201707/29/2021 Encounte r for steriliz ation;Pr actice ID: 0001 Kari Reinaldo sumner [facility] 17:16:36 Procedur e on genitour inary system Completed 201707/29/2021 Encounte r for surgical aftcr followin g surgery on the sys;Prac julian ID: 0001 Kari Reinaldo sumner [facility] 17:16:20 Postoper ative care Completed 201707/29/2021 Encounte r for surgical aftcr followin g surgery on the sys;Prac julian ID: 0001 Kari Najera taisha [facility] 17:16:15 Urinary tract infectio us disease 48845291 Completed 201807/29/2021 Urinary tract infectio n, site not specifie d;Practi ce ID: 0001 Kari Najera taisha [facility] 17:16:[address] Concept Completed 201807/29/2021 Encntr for mold setter exam (general ) (routine ) w/o abn findings ;Practic e ID: 0001 Kari sumner [facility] 17:16:32 Screenin g for malignan t neoplasm of rectum Completed 201807/29/2021 Encounte r for screenin g for malignan t neoplasm of rectum;P [facility] 17:16:28 Evaluati on finding Completed 201807/29/2021 Hematuri a, unspecif ied;Toni rded Elsewher e: No Locat ion: [facility] S ource: [facility] [employer] luz: N Practi ce ID: 0001 Petr lable Time: 08:15:00 AM Kari Najera [facility] 17:15:14 Problem Notes None recorded. Procedures Surgical History Date Name Laterality Status Provider Name and Address Organization Details Recorded Time 07/30/20 21 Date of Last Pap Smear completed Kariblas Najera [facility] 07/30/2021 09:55:09 07/30/20 18 [facility] 07/29/2021 17:34:29 02/29/20 18 endometrial biopsy completed [facility] 07/29/2021 17:33:40 08/15/20 12 Breast Biopsy completed [facility] 07/29/2021 17:32:59 12/30/19 03 [facility]2021 17:34:42 11/29/19 02 Colposcopy completed [facility] 07/29/2021 17:20:03 Imaging Results None recorded. Procedure Notes None recorded. Medical Equipment None Reported. Allergies Allergen ID Allergen Name Allergen Category Reaction Reaction Severity Criticality Documentation Date Start Date Code Code System Note Provider Name and Address Organization Details Recorded Time 24623 ketorolac medicatio n Not available Not available Not available 07/30/2021 61714 RxNorm Kari sumner [facility] 09:54:01 Medications Name Sig Start Date [...] Prescrib ed Elsewher e: Yes Loca tion: [facility] odify By: efraín gee DateTime : 10/29/20 11 03:30:00 PM Not Available Not Available Not Available doxycycli ne hyclate 50 mg capsule take 1 capsule by oral route every 12 hours 02/07 completed Prescrib ed Elsewher e: Yes Loca tion: [facility] odify By: mike Alvarez ncounter DateTime : 04/13/20 16 01:00:00 PM Not Available Not Available Not Available Pyridium 200 mg tablet take 1 tablet by oral route 3 times every day after meals 07/30 completed Prescrib ed Elsewher e: No Locat ion: [facility] odify By: carmen tz Encou nter DateTime : 02/10/20 19 08:15:00 AM Not [...] Elsewher e: No Locat ion: [facility] odify By: mike armendariz DateTime : 12/17/19 17 02:43:41 PM Not Available Not Available Not Available Soma 350 mg tablet take 1 tablet by oral route 3 times every day and at bedtime 04/13 completed Prescrib ed Elsewher e: No Locat ion: [facility] odify By: daryl delgado DateTime : [...] Elsewher e: No Locat ion: [facility] odify By: andrew armendariz DateTime : 02/14/20 19 09:38:29 AM Not Available Not Available Not Available nystatin 100,000 unit/gram topical cream 02/16 completed Not Available Not Available Not Available Synthroid 88 mcg tablet take 1 tablet by oral route every day 04/13 completed Prescrib ed Elsewher e: Yes Loca tion: [facility] odify By: daryl delgado DateTime : 09/20/20 14 02:00:00 PM Not Available Not Available Not Available Synthroid 50 mcg tablet take 1 tablet by oral route every day 02/16 completed Prescrib ed Elsewher e: Yes Loca tion: [facility] odify By: imke armendariz DateTime : 04/20/20 16 03:15:00 PM Not Available Not Available Not Available Adipex-P 37.5 mg capsule take 1 capsule by oral route every day before breakfas t 09/20 completed Prescrib ed Elsewher e: Yes Loca tion: [facility] odify By: efraín gee DateTime : 03/15/20 14 04:30:00 PM Not Available Not Available Not Available Vitamin D2 1,250 mcg (50,000 unit) capsule take 1 capsule (52141OL ITS) by oral route every week 03/15 completed Prescrib ed Elsewher e: No Locat ion: [facility] odify By: isabel armendariz DateTime : 08/31/20 [...] Elsewher e: No Locat ion: [facility] odify By: andrew armendariz DateTime : 02/10/20 19 08:15:00 AM Not Available Not Available Not Available Wellbutri n XL 300 mg 24 hr tablet, extended release take 1 tablet by oral route every day 02/07 completed Prescrib ed Elsewher e: No Locat ion: [facility] odify By: mike armendariz DateTime : [...] Prescrib ed Elsewher e: No [facility]: mike armendariz DateTime : 02/08/20 18 01:45:00 PM Not Available Not Available Not Available Lo Loestrin Fe 1 mg-10 mcg (24)/10 mcg (2) tablet take 1 tablet by oral route every day 01/04 completed Prescrib ed Elsewher e: No Locat ion: [facility] odify By: timurl E ncounter DateTime : 09/07/20 09:42:20 AM Not Available Not Available Not [...] Body mass index (BMI) Body weight Systolic And Diastolic Provider Name and Address Organization Details Last Updated DateTime 02/17/2024 160.02 cm 45.5 kg/m2 975356.24 g 136/91 mm[Hg] Sabi Abelino [facility] 02/17/2024 10:12:21 Date Recorded Body height Body mass index (BMI) Body weight Systolic And Diastolic Provider Name and Address Organization Details Last Updated DateTime 07/30/2021 161.93 cm 46.7 kg/m2 960900.94 g 127/84 mm[Hg] Kari Najera [facility] 07/30/2021 09:53:20 Social History Question Answer Notes LastModified by Organizat ion Details LastModified Time Tobacco Smoking Status Never Smoker Kari Najera [facility] 07/30/2021 09:56:22 If You Are , What Was Your Level Of Alcohol Consumption Prior To ? None [email or web address] Information not available 07/30/2021 Are You Blind Or Do You Have Difficulty Seeing? No [email or web address] Information n ot available 07/30/2021 What Is Your Level Of Caffeine Consumption? Occasional [email or web address] Information not available 07/30/2021 In The 14 Days Before Symptom Onset, Have You Had Close Contact With A Laboratory-confirm ed COVID-19 While That Case Was Ill? No [email or web address] Information n ot available 07/30/2021 In The 14 Days Before Symptom Onset, Have You Had Close Contact With A Person Who Is Under Investigation For COVID-19 While That Person Was Ill? No Information not available 07/30/2021 Have You Been To An Area Known To Be High Risk For COVID-19? No [email or web address] Information not available 07/30/2021 Are You Deaf Or Do You Have Serious Difficulty Hearing? No [email or web address] Information not available 07/30/2021 What Type Of Diet Are You Following? REGULAR [email or web address] Information n ot available 07/30/2021 Do You Use Your Seat Belt Or Car Seat Routinely? Yes [email or web address] Information not available 07/30/2021 Do You Have Smoke And Carbon Monoxide Detectors In Your Home? Yes [email or web address] Information not available 07/30/2021 Do You Use Sunscreen Routinely? Yes [email or web address] Information not available 07/30/2021 Has Tobacco Cessation Counseling Been Provided? No [email or web address] Information not available 07/30/2021 Sex: Unknown Functional Status Question Answer Note LastModified by Organizat ion Details LastModified Time Do you use any illicit or recreational drugs? No [email or web address] Information not available 07/30/2021 Do you or have you ever used any other forms of tobacco or nicotine? No [email or web address] Information not available 07/30/2021 What is your level of alcohol consumption? Occasional [email or web address] Information not available 07/30/2021 Are you able to walk? YESWOREST [email or web address] Information not available 07/30/2021 What is your exercise level? Occasional [email or web address] Information not available 07/30/2021 Mental Status Question Answer Note LastModified by Organization D etails LastModified Time Do you feel stressed (tense, restless, nervous, or anxious, or unable to sleep at night)? [id number] [email or web address] Information not available 07/30/2021 Family History Relationship Description Onset Age of this Age Resolved Age Notes LastModified by Organization Details LastModified Time Maternal Aunt Malignant tumor of colon [email or web address] Not available 07/29 17:29:59 Maternal Aunt Heart disease [email or web address] Not available 07/29 17:30:47 Paternal Grandmother Malignant tumor of breast [email or web address] Not available 07/29 17:30:21 Maternal Grandmother Malignant tumor of breast [email or web address] Not available 07/29 17:30:21 Maternal Grandmother Malignant neoplasm of liver [email or web address] Not available 07/29 17:32:14 Mother Heart disease [email or web address] Not available 07/29 17:30:47 Mother Hypertensive disorder [email or web address] Not available 07/29 17:31:17 Maternal Uncle Heart disease [email or web address] Not available 07/29 17:30:47 Sister Hypertensive disorder [email or web address] Not available 07/29 17:31:17 Sister Diabetes mellitus [email or web address] Not available 07/29 17:31:31 Father Diabetes mellitus Not available 07/29 17:31:42 Father Hypertensive disorder [email or web address] Not available 07/29 17:32:24 Notes:Father: Diabetes melli [...] SNOMED-CT Code Diagnosis ICD10 Code Diagnosis Note 74779 Solange Ye CNM [facility] [address] [address] 07/30/2021 09:41:09 07/30/2021 15:54:38 Gynecologic examination 90294171 Z01.419 Dyspareunia 24250466 N94 .10 f/u pending [id number] Austen Macario MD [facility] [address] [address] 08/01/2021 16:05:54 08/01/2021 16:54:26 Dyspareunia 46731174 N94.10 [id number] ALCIDES Isaac [facility] [address] [address] 02/17/2024 10:04:57 02/17/2024 10:41:21 Gynecologic examination 26784812 Z01.419 WWEBC - BTLpap updateddec lined STI screenmamm ogram order givencolon oscopy UTDroutine labs/PCPge netic testing discussed/ fam hx reviewedBP precaution s reviewedRT C in 1 yr or sooner if needed Suggested Calcium with Vitamin D daily. Patient advised to get an annual flu shot in the fall and she could obtain at [facility] or [facility] care clinic. Also to obtain TDap vaccinatio [...] email. Screening for malignant neoplasm of breast 950858125 Z12.39 Health Concerns Section Related Observation LastModified by Organization Detai ls LastModified Time None Recorded Concern Status LastModified by Organization Details LastModified Time None Recorded Advance Directives Directive None Recorded Payers Insurance Date Sequence Insurance Name Policy Number Policy Castro Covered Member ID Castro Member ID Guarantor Name 02/16/2024 1 [employer] - DOS PRIOR TO 21 - [facility] [employer] [id number] Austin Mckeon [id number] OI Austin oDng 02/17/2024 1 [employer] - [facility] [employer] [id number] Austin Dong [id number] OI Austin Dong Notes Date Note Type [...] and also cant wear cups again Solange Ye, PI[facility] [address], [place], [address], [facility] 07/30/2021 10:58:55 02/17/2024 text/html Annual GYNReport [...] unsure when advised to repeat ALCIDES Isaac [address], [place], [address], [facility] 02/17/2024 10:36:51 OBGyn Episode Ob Episode Information Episode Created Date Number of Fetuses Patient Bloodtype Patient rh Status Prepregnancy Weight lbs Domestic Partner Domestic Partner Phone Father Name Editor Sound Status 07/29/20 21 1 CLOSED Fetus Data First Name Last Name Admitted to NICU Weight (g) Sex Living Outcome Pediatric Complications Fetus ID Race Codes Race Delivery Type , Induced 31200 Solomon Calculation Initial Solomon Date Initial Exam [...] Domestic Partner Domestic Partner Phone Father Name Editor Sound Status 07/29/20 21 1 CLOSED Fetus Data First Name Last Name Admitted to NICU Weight (g) Sex Living Outcome Pediatric Complications Fetus ID Race Codes Race Delivery Type 3373.36 3704 F Full Term 23615 Vaginal Delivery Solomon Calculation Initial Solomon Date [...] Domestic Partner Domestic Partner Phone Father Name Editor Sound Status 07/29/20 21 1 CLOSED Fetus Data First Name Last Name Admitted to NICU Weight (g) Sex Living Outcome Pediatric Complications Fetus ID Race Codes Race Delivery Type 3770.25 6704 M Full Term 34138 Vaginal Delivery Solomon Calculation Initial Solomon Date [...] Domestic Partner Domestic Partner Phone Father Name Editor Sound Status 07/29/20 21 1 CLOSED Fetus Data First Name Last Name Admitted to NICU Weight (g) Sex Living Outcome Pediatric Complications Fetus ID Race Codes Race Delivery Type , Spontane ous 28702 Solomon Calculation Initial Solomon Date Initial Exam [...] Domestic Partner Domestic Partner Phone Father Name Editor Sound Status 07/29/20 21 1 CLOSED Fetus Data First Name Last Name Admitted to NICU Weight (g) Sex Living Outcome Pediatric Complications Fetus ID Race Codes Race Delivery Type 4110.45 0704 M Full Term 23629 Vaginal Delivery Solomon Calculation Initial Solomon Date [...] Domestic Partner Domestic Partner Phone Father Name Editor Sound Status 07/29/20 21 1 CLOSED Fetus Data First Name Last Name Admitted to NICU Weight (g) Sex Living Outcome Pediatric Complications Fetus ID Race Codes Race Delivery Type , Spontane ous 76330 Solomon Calculation Initial Solomon Date Initial Exam [...]
--- OUTSIDE RECORDS SUMMARY | 2025-06-15 11:05 | XMS_ITS | Encounter Summary ---
Author Organization [facility] [employer] [facility] Address [address] [place] [address] Care Team Providers Care Cardiovascular Disease Specialist Name Role Phone Trey Shen MD Primary Care Provider [phone] Reason for Visit * Reason Onset Date Comments Blood in stool 06/15/2025 Encounter Details Date Type Department Care Team (Late st Contact Info) Description 06/15/2025 Telephone [facility] Oncology and Hematology - [place] [address] [place] [address] [facility] [address] [place] [address] Neal Mena MD [address] [facility] [address] [place] [address] Blood in stool Social History Tobacco Use Types Packs/Day Years Used Date Smoking Tobacco: Never Smokeless Tobacco: Never Alcohol Use Standard Drinks/Week Comments Never 0 (1 standard drink = 0.6 oz pur e alcohol) Comments Unknown Sex and Gender Information Value Date Recorded Sex Assigned at Not on file 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 Approximately 24 hours later, she had another bowel movement this morning with significantly increased blood, including small amounts of blood clots. The patient wanted to know about Dr. Mena???s recommendations. I informed the patient that I wouldconsult with Dr. Mena regarding her symptoms. After discussing the case with Dr. Mena, he advised that the patient should proceed to the emergency room due to a possible gastrointestinal bleed. Ilet the patient know of Dr. Mena???s recommendations to the patient, who acknowledged and agreed to go to the ER. documented in this encounter Plan of Treatment Upcoming Encounters Date Type Department Care Team (Late st Contact Info) Description 07/25/2025 9:00 AM CDT Office Visit [facility] Oncology and Hematology - [place] [address] [facility] [address] [place] [address] Neal Mena MD [address] [facility] [address] [place] [address] documented as of this encounter Visit Diagnoses Not on filedocumented in this encounter Care Teams Cardiovascular Disease Specialist Relationship Specialty Start Date End Date Trey Shen MD [address] [facility] [address] [place] [address] PCP - General Family Practice 05/02/25 documented as of this encounter
[2025-06-15 11:07] VITALS: BP 152/82; PULSE 105; RESP 18; TEMP 36.6; O2SAT 98
[2025-06-15 11:27] LABS: Hematocrit 33.9 % (37.0-47.0); Hemoglobin 11.1 g/dL (12.0-15.0); Immature Granulocyte Percent A 8.4 % (0-0.5); Lymphocytes Absolute Auto 1.64 K/mm3 (0.9-3.2); Mean Corpuscular HGB Conc 32.7 g/dl (32-36); Mean Corpuscular Hemoglobin 32.3 pg (26-34); Mean Corpuscular Volume 98.5 fl (80-100); Nucleated Red Blood Cells Absolute Auto 0.000 K/mm3 (0.0-0.012); Nucleated Red Blood Cells Perc 0.0 % (0.0-0.2); Platelet Count Result 197 k/mm3 (150-375); Red Blood Count 3.44 M/mm3 (4.2-5.4); White Blood Count 16.8 K/mm3 (4.5-10.0)
[2025-06-15 11:43] LABS: INR 1.1; Prothrombin Time 14.0 Seconds (11.1-14.7)
[2025-06-15 11:45] LABS: Partial Thromboplastin Time 23.4 Seconds (22.3-36.8)
[2025-06-15 11:53] LABS: Alanine Aminotransferase 42 U/L (6-35); Albumin Level 4.2 g/dL (3.5-5.1); Alkaline Phosphatase 41 U/L (38-126); Aspartate Amino Transferase 35 U/L (14-36); Bilirubin,Total 1.6 mg/dL (0.2-1.3); Blood Urea Nitrogen 19 mg/dL (7-17); Calcium 9.6 mg/dL (8.4-10.2); Carbon Dioxide 24 mmol/L (22-30); Estimated CRCL calculation 91 ml/min; Estimated Glomerular Filt Rate > 60; Glucose 131 mg/dL (65-110); Total Protein 7.0 g/dL (6.3-8.2)
[2025-06-15 12:01] LABS: Anion Gap 9 mmol/L (4-12); Chloride 106 mmol/L (98-107); Potassium 3.3 mmol/L (3.4-5.0); Sodium 139 mmol/L (137-145)
--- OUTSIDE RECORDS SUMMARY | 2025-06-15 12:05 | XMS_ITS | Encounter Summary ---
Author Organization [facility] Address 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 TESTER BATTERY Gender Identity Not on file Sexual Orientation Not on file documented as of this encounter Plan of Treatment Upcoming Encounters Date Type Department Care Team (Late st Contact Info) Description 07/25/2025 9:00 AM CDT Office Visit [facility] Oncology and Hematology - [place] [address] [facility] 200 [place] [address] Neal Mena MD [address] [facility] [address] [place] [address] documented as of this encounter Procedures Procedure Name Priority Date/Time Associated Diagnosis Comments CBC WITH DIFFERENTIAL Stat 03/15/2009 10:24 PM CDT C-REACTIVE PROTEIN Stat 03/15/2009 10 :24 PM CDT COMPREHENSIVE METABOLIC PANEL Stat 03/15/2009 10:24 PM CDT documented in this encounter Results * C-REACTIVE PROTEIN (03/15/2009 10:24 PM CDT) CRP 0.7 0.0 - 0.8 mg/dL [facility] Blood specimen (specimen) 03/15/2009 10:24 PM CDT 03/15/2009 10:40 PM CDT us Juan Carranza MD CHEMISTRY ORDERABLES Final Resu lt INTERFACE SYSTEM Refer to clinic/hospital department [facility] CLIA# [id number] [address] [facility] [address] [place] [address] * (ABNORMAL) COMPREHENSIVE METABOLIC PANEL (03/15/2009 10:24 PM CDT) Pathologist [facility] CREATININE 0.60 0.51 - 0.95 mg/dL [facility] SODIUM 137 135 - 145 mmol/L [facility] ALT 12 0 - 31 U/L [facility] ALKALINE PHOSPHATASE 46 35 - 104 U/L [facility] BILIRUBIN TOTAL 0.5 0.2 - 1.0 mg/dL [facility] CO2 21(L) 22 - 30 mmol/L [facility] TOTAL PROTEIN 6.1(L) 6.3 - 8.6 g/dL [facility] POTASSIUM 3.1(L) 3.5 - 4.9 mmol/L [facility] GLUCOSE 111(H) 65 - 99 mg/dL [facility] AST 17 12 - 32 U/L [facility] BUN 6 6 - 20 mg/dL [facility] CALCIUM 8.5(L) 8.6 - 10.2 mg/dL [facility] CHLORIDE 107 96 - 108 mmol/L [facility] ALBUMIN 3.5 3.4 - 4.8 g/dL [facility] GFR, >60 >=60 mL/min/1. 7 sq meter [facility] GFR >60 >=60 mL/min/1. 7 sq meter [facility] Comment: Modification of Diet in Renal Disease (MDRD) study formula. Estimated GFR rate interpretative information for both Americans and non- Americans is available on the [facility] Intranet at: [email or web address] Select: Lab Policies and Procedures Select: Reference Ranges - GFR Blood specimen (specimen) 03/15/2009 10:24 PM CDT 03/15/2009 10:40 PM CDT Juan Carranza MD CHEMISTRY ORDERABLES Edited INTERFACE SYSTEM Refer to clinic/hospital department [facility] CLIA# [id number] [address] [place] [address] * (ABNORMAL) CBC WITH DIFFERENTIAL (03/15/2009 10:24 PM CDT) HEMOGLOBIN 10.4(L) 11.8 - 14.8 g/dL [facility] RDW 14.2 11.5 - 14.5 % [facility] WBC 10.7(H) 4.0 - 9.8 K/uL [facility] MCH 30.0 27.2 - 32.6 pg [facility] MPV 10.9 9.3 - 12.4 fL [facility] HEMATOCRIT 30.4(L) 35.5 - 44.0 % [facility] RDW-STDEV 44.5 37.1 - 48.7 fL [facility] RBC 3.47(L) 3.90 - 4.90 M/uL [facility] MCHC 34.2 31.5 - 35.5 % [facility] MCV 87.6 82.0 - 99.0 fL [facility] PLATELETS 229 140 - 350 K/uL [facility] LYMPHOCYTES 17 16 - 45 % [facility] LYMPHOCYTE ABSOLUTE 1.84 0.70 - 4.50 K/uL [facility] BASOPHILS 0 0 - 2 % [facility] BASOPHILS ABSOLUTE 0.01 0.00 - 0.20 K/uL [facility] MONOCYTES 7 3 - 13 % [facility] MONOCYTE ABSOLUTE 0.72 0.10 - 1.30 K/uL [facility] NEUTROPHILS 75(H) 45 - 70 % [facility] NEUTROPHIL ABSOLUTE 8.05(H) 1.90 - 7.00 K/uL [facility] EOSINOPHILS 1 0 - 7 % [facility] EOSINOPHIL ABSOLUTE 0.07 0.00 - 0.70 K/uL [facility] Blood specimen (specimen) 03/15/2009 10:24 PM CDT 03/15/2009 10:40 PM CDT us Juan Carranza MD HEMATOLOGY ORDERABLES Edited INTERFACE SYSTEM Refer to clinic/hospital department [facility] CLIA# [id number] [address] [place] [address] documented in this encounter Visit Diagnoses Not on filedocumented in this encounter Care Teams Windows Server Specialist Relationship Specialty Start Date End Date Trey Shen MD [address] [facility] [address] [place] [address] PCP - General Family Practice 6/4/25 documented as of this encounter
--- OUTSIDE RECORDS SUMMARY | 2025-06-15 12:05 | XMS_ITS | Encounter Summary ---
Author Organization [facility] [employer] [facility] Address [address] [place] [address] Care Team Providers Care Automatic Tire Tester Name Role Phone Trey Shen MD Primary Care Provider [phone] Encounter Details Date Type Department Care Team (Late st Contact Info) Description 06/13/2025 Orders Only [facility] Oncology and Hematology [facility] [address] [place] [address] Neal Mena MD [address] [place] [address] Social History Tobacco Use Types Packs/Day Years Used Date Smoking Tobacco: Never Smokeless Tobacco: Never Alcohol Use Standard Drinks/Week Comments Never 0 (1 standard drink = 0.6 oz pur e alcohol) Comments Unknown Sex and Gender Information Value Date Recorded Sex Assigned at Not on file Legal Sex Female 5:43 AM ELECTRICIAN'S ASSISTANT Gender Identity Not on file Sexual Orientation Not on file documented as of this encounter Plan of Treatment Upcoming Encounters Date Type Department Care Team (Late st Contact Info) Description 07/25/2025 9:00 AM CDT Office Visit [facility] Oncology [facility] Hematology [facility] [address] [place] [address] Neal Mena MD [address] [place] [address] documented as of this encounter Procedures Procedure Name Priority Date/Time Associated Diagnosis Comments BASIC METABOLIC PANEL Routine 06/13/2025 1:41 PM CDT COMPREHENSIVE METABOLIC PANEL Routine 06/13/2025 1:25 PM CDT documented in this encounter Results * BASIC METABOLIC PANEL (06/13/2025 1:41 PM CDT) Blood us Neal Mena MD CHEMISTRY ORDERABLES Final Resu lt * COMPREHENSIVE METABOLIC PANEL (06/13/2025 1:25 PM CDT) Blood us Neal Mena MD CHEMISTRY ORDERABLES Final Resu lt documented in this encounter Visit Diagnoses Not on filedocumented in this encounter Care Teams Automatic Tire Tester Relationship Specialty Start Date End Date Trey Shen MD [address] [facility] [address] [facility] [address] [place] [address] PCP - General Family Practice 05/02/25 documented as of this encounter
--- OUTSIDE RECORDS SUMMARY | 2025-06-15 12:06 | XMS_ITS | Clinical Summary ---
Author Organization [facility] Physician Office Building [address] [place] [address] Care Team Providers Care Locket Maker Name Role Phone Trey Shen MD Primary [...] 12/05/2024 Assessment & Plan (12/05/2024 3:05 PM CUSTOMER SERVICE ASSOCIATE): I counseled the patient on exercise: [...] 12/05/2024 Assessment & Plan (12/05/2024 3:57 PM CUSTOMER SERVICE ASSOCIATE): Patient's highest BMI was 48.6 ; initial BMI was 46.8; this has improved to 41.07 through medical management Vitamin D deficiency 09/12/2024 Assessment & Plan (12/05/2024 3:06 PM CUSTOMER SERVICE ASSOCIATE): Continue vitamin-D supplementation Assessment & Plan (09/12/2024 4:10 PM CDT): start vitamin-D replacement 5,000IU daily Encounter for weight loss counseling 07/11/2024 Assessment & Plan (12/05/2024 3:05 PM CUSTOMER SERVICE ASSOCIATE): Reviewed importance of adequate protein intake. [...] 07/11/2024 Assessment & Plan (12/05/2024 3:05 PM CUSTOMER SERVICE ASSOCIATE): Obesity is one of the leading [...] 03/21/2018 Assessment & Plan (12/05/2024 4:18 PM CUSTOMER SERVICE ASSOCIATE): Reviewed most recent labs. Continue low [...] 03/21/2018 Assessment & Plan (12/05/2024 3:05 PM CUSTOMER SERVICE ASSOCIATE): Continue current dose of levothyroxine. Assessment [...] on file Legal Sex Female 7:08 PM CUSTOMER SERVICE ASSOCIATE Gender Identity Not on file Sexual [...] (239 lb 6.4 oz) 12/05/2024 3:55 PM CUSTOMER SERVICE ASSOCIATE Height 162.6 cm (5' 4.02) 12/05/2024 3:55 PM CS T Body Mass Index 41.07 12/05/2024 3:55 PM CUSTOMER SERVICE ASSOCIATE Plan of Treatment Health Maintenance Due [...] age to complete this topic Insurance [facility] [id number] Care Teams Locket Maker Relationship Specialty Start Date End Date Trey Shen MD [address] [facility] [address] [place] [address] PCP - General Family Medicine 03/10/18
--- OUTSIDE RECORDS SUMMARY | 2025-06-15 12:06 | XMS_ITS | Encounter Summary ---
Author Organization [facility] Address [address] [place] [address] Care Team Providers Care Sales Appointment Coordinator Name Role Phone Trey Shen MD Primary Care Provider [phone] Encounter Details Date Type Department Care Team [...] on file Legal Sex Female 5:43 AM QUALITY ASSURANCE QA LAB ANALYST Gender Identity Not on file Sexual Orientation Not on file documented as of this encounter Plan of Treatment Upcoming Encounters Date Type Department Care Team (Late st Contact Info) Description 07/25/2025 9:00 AM CDT Office Visit [facility] Oncology and Hematology - [place] [address] [facility] 200 [place] [address] Neal Mena MD [address] [facility] [address] [place] [address] documented as of this encounter Visit Diagnoses Not on filedocumented in this encounter Care Teams Sales Appointment Coordinator Relationship Specialty Start Date End Date Trey Shen MD [address] [facility] 120 [place] [address] PCP - General Family Practice 05/02/25 documented as of this encounter
--- OUTSIDE RECORDS SUMMARY | 2025-06-15 12:06 | XMS_ITS | Referral Summary ---
Author Organization [facility] Physician Office Building [address] [place] [address] Care Team Providers Care Tool Turret Lathe Set Up Operator Name Role Phone Trey Shen MD [...] 12/05/2024 Assessment & Plan (12/05/2024 3:05 PM FIRE CONTROL OFFICER): I counseled the patient on exercise: Recommend [...] 12/05/2024 Assessment & Plan (12/05/2024 3:57 PM FIRE CONTROL OFFICER): Patient's highest BMI was 48.6 ; initial BMI was 46.8; this has improved to 41.07 through medical management Vitamin D deficiency 09/12/2024 Assessment & Plan (12/05/2024 3:06 PM FIRE CONTROL OFFICER): Continue vitamin-D supplementation Assessment & Plan (09/12/2024 4:10 PM CDT): start vitamin-D replacement 5,000IU daily Encounter for weight loss counseling 07/11/2024 Assessment & Plan (12/05/2024 3:05 PM FIRE CONTROL OFFICER): Reviewed importance of adequate protein intake. Reviewed [...] 07/11/2024 Assessment & Plan (12/05/2024 3:05 PM FIRE CONTROL OFFICER): Obesity is one of the leading risk [...] 03/21/2018 Assessment & Plan (12/05/2024 4:18 PM FIRE CONTROL OFFICER): Reviewed most recent labs. Continue low carb, [...] 03/21/2018 Assessment & Plan (12/05/2024 3:05 PM FIRE CONTROL OFFICER): Continue current dose of levothyroxine. Assessment & [...] on file Legal Sex Female 7:08 PM FIRE CONTROL OFFICER Gender Identity Not on file Sexual [...] (239 lb 6.4 oz) 12/05/2024 3:55 PM FIRE CONTROL OFFICER Height 162.6 cm (5' 4.02) 12/05/2024 3:55 PM CS T Body Mass Index 41.07 12/05/2024 3:55 PM FIRE CONTROL OFFICER Plan of Treatment Not on file Insurance [facility] [id number] Care Teams Tool Turret Lathe Set Up Operator Relationship Specialty Start Date End Date Trey Shen MD [address] [facility] 120 [place] [address] PCP - General Family Medicine 03/10/18
--- OUTSIDE RECORDS SUMMARY | 2025-06-15 12:06 | XMS_ITS | Clinical Summary ---
Author [facility] Address [address] [place] [address] Care Team Providers Care Sole Polisher Name Role Phone Trey Shen MD Primary Care Provider [phone] Allergies Active Allergy Reactions Criticality Noted Date [...] Type Department Care Team Description 06/15/2025 Telephone [facility] Oncology and Hematology [facility] [address] [place] [address] Neal Mena MD Blood in stool 06/13/2025 9:00 AM CDT Office Visit [facility] Oncology and Hematology [facility] [address] [place] [address] Neal Mena MD Malignant neoplasm of upper-outer quadrant of left breast in female, estrogen receptor positive (CMS/HCC) (Primary Dx) 06/13/2025 External Device Data STL ABSTRACTION Provider, Abstract 06/13/2025 Orders Only [facility] Oncology and Hematology - [place] [address] [place] [address] Neal Mena MD 06/04/2025 Orders Only [facility] Oncology and Hematology - [place] [address] [place] [address] Neal Mena MD Malignant neoplasm of upper-outer quadrant of left breast in female, estrogen receptor positive (CMS/HCC) 05/28/2025 Orders Only [facility] Oncology and Hematology - [place] [address] [place] [address] Neal Mena MD 05/24/2025 Orders Only [facility] Oncology and Hematology - [place] [address] [place] [address] Neal Mena MD 05/23/2025 9:30 AM CDT Office Visit [facility] [place] [address] [place] [address] Neal Mena MD Malignant neoplasm of upper-outer quadrant of left breast in female, estrogen receptor positive (CMS/HCC) (Primary Dx) 05/21/2025 Orders Only [facility] Oncology and Hematology - [place] [address] Neal Mena MD Malignant neoplasm of upper-outer quadrant of left breast in female, estrogen receptor positive (CMS/HCC) 05/16/2025 External Device Data STL ABSTRACTION Provider, Abstract 05/11/2025 Orders Only [facility] Oncology and Hematology - [place] [address] Neal Mena MD 05/10/2025 Orders Only [facility] Oncology and Hematology - [place] [address] [place] [address] Neal Mena MD 05/10/2025 Telephone [facility] Oncology and Hematology - [place] [address] [place] [address] Neal Mena MD Lab Results 05/10/2025 Telephone [facility] Oncology and Hematology - [place] [address] [place] [address] Neal Mena MD Dizziness 05/07/2025 Orders Only [facility] Oncology and Hematology - [place] [address] [place] [address] Neal Mena MD Malignant neoplasm of upper-outer quadrant of left breast in female, estrogen receptor positive (CMS/HCC) 05/02/2025 9:00 AM CDT Office Visit [facility] Oncology and Hematology - [place] [address] [place] [address] Neal Mena MD Malignant neoplasm of upper-outer quadrant of left breast in female, estrogen receptor positive (CMS/HCC) (Primary Dx) 05/02/2025 Abstract [facility] Oncology and Hematology - [place] [address] [place] [address] Neal Mena MD 05/02/2025 Orders Only [facility] Oncology and Hematology - [place] [address] [place] [phone] Neal Mena MD 05/01/2025 External Device Data STL ABSTRACTION Provider, Abstract 05/01/2025 Telephone [facility] Oncology and Hematology - [place] [address] [place] [phone] Neal Mena MD Upper Respiratory Symptoms 04/23/2025 Orders Only [facility] Oncology and Hematology - [place] [address] [place] [phone] Neal Mena MD Malignant neoplasm of upper-outer quadrant of left breast in female, estrogen receptor positive (CMS/HCC) 04/19/2025 External Device Data STL ABSTRACTION Provider, Abstract 04/19/2025 External Device Data STL ABSTRACTION Provider, Abstract 04/18/2025 External Device Data STL ABSTRACTION Provider, Abstract 04/18/2025 Telephone [facility] Oncology and Hematology - [place] [address] Results 04/12/2025 Orders Only [facility] Oncology and Hematology - [place] [address] Neal Mena MD 04/09/2025 Telephone [facility] Oncology and Hematology - [place] [address] [place] [phone] Neal Mena MD Mdication Questions 04/09/2025 Orders Only [facility] Oncology and Hematology - [place] [address] [place] [address] Neal Mena MD Malignant neoplasm of upper-outer quadrant of left breast in female, estrogen receptor positive (CMS/HCC) 03/30/2025 Abstract [facility]ology - [place] [address] Neal Mena MD 03/29/2025 Orders Only [facility] Oncology and Hematology - [place] [address] [place] [address] Neal Mena MD 03/28/2025 Telephone [facility] Oncology and Hematology - [place] [address] [place] [address] Neal Mena MD Blood In Stool 03/26/2025 Telephone [facility]cology and Hematology - [place] [address] [place] [phone] Lelia Garcia MD Thrush 03/26/2025 Orders Only [facility] Oncology and Hematology - [place] [address] [place] [address] Neal Mena MD Malignant neoplasm of upper-outer quadrant of left breast in female, estrogen receptor positive (CMS/HCC) 03/21/2025 9:00 AM CDT Office Visit [facility] Oncology and Hematology - [place] [address] [place] [address] Lelia Garcia MD Malignant neoplasm of upper-outer quadrant of left breast in female, estrogen receptor positive (CMS/HCC) (Primary Dx) 03/21/2025 Orders Only [facility] Oncology and Hematology - [place] [address] [place] [address] Neal Mena MD 03/19/2025 Orders Only [facility] Oncology and Hematology - [place] [address] [place] [address] Neal Mena MD Malignant neoplasm of upper-outer [...] on file Legal Sex Female 5:43 AM ELECTRICIAN THIRD Gender Identity Not on file Sexual Orientation [...] 162.6 cm (5' 4) 02/02/2025 1:46 PM ELECTRICIAN THIRD Body Mass Index 40.89 02/02/2025 1:46 PM ELECTRICIAN THIRD Plan of Treatment Upcoming Encounters Date Type Department Care Team (Late st Contact Info) Description 07/25/2025 9:00 AM CDT Office Visit [facility] Oncology and Hematology [facility] [address] [place] [address] [facility] 200 [place] [address] Neal Mena MD [address] [facility] [address] [place] [address] Health Maintenance Due Date Last [...] 15 3 (05/02/2025 1:56 PM CDT) Result [facility] us Neal Mena MD CHG - LABORATORY Final Result * CT ABDOMEN PELVIS W CONTRAST (03/28/2025 1:39 PM CDT) Anatomical Region Laterality Modality Abdomen Computed Tomogra phy Result [facility] us Neal Mena MD CT ORDERABLES Final Result * CANCER ANTIGEN 15-3 (03/21/2025 11:46 AM CDT) Blood us Neal Mena MD CHEMISTRY ORDERABLES Final Resu lt from Last 3 Months Insurance [facility] [employer] Care Teams Sole Polisher Relationship Specialty Start Date End Date Trey Shen MD [address] [facility] [address] [place] [address] PCP - General Family Practice 05/02/25
--- OUTSIDE RECORDS SUMMARY | 2025-06-15 12:06 | XMS_ITS | Encounter Summary ---
Author Organization [facility] Address [address] [place] [address] Care Team Providers Care Sales Project Coordinator Name Role Phone Trey Shen MD Primary Care Provider [phone] Reason for Visit * Reason Onset Date Comments Blood in stool 06/15/2025 Encounter Details Date Type Department Care Team (Late st Contact Info) Description 06/15/2025 Telephone [facility] Oncology and Hematology - [place] [address] [place] [address] [facility] [address] [place] [address] Neal Mena MD [address] [facility] [address] [place] [address] Blood in stool Social History Tobacco Use Types Packs/Day Years Used Date Smoking Tobacco: Never Smokeless Tobacco: Never Alcohol Use Standard Drinks/Week Comments Never 0 (1 standard drink = 0.6 oz pur e alcohol) Comments Unknown Sex and Gender Information Value Date Recorded Sex Assigned at Not on file Legal Sex Female 5:43 AM [employer] Gender Identity Not on file Sexual Orientation [...] Description 07/25/2025 9:00 AM CDT Office Visit [facility] Oncology and Hematology - [place] [address] [facility] [address] [place] [address] Neal Mena MD [address] [facility] [address] [place] [address] documented as of this encounter Visit Diagnoses Not on filedocumented in this encounter Care Teams Sales Project Coordinator Relationship Specialty Start Date End Date Trey Shen MD [address] [facility] [address] [place] [address] PCP - General Family Practice 05/02/25 documented as of this encounter
[2025-06-15] MEDS: SODIUM CHLORIDE 0.9% IV 1,000 ML 999 ML IV CONT ×3 (12:37→13:19)
[2025-06-15 13:06] VITALS: BP 109/80; PULSE 77; RESP 18; O2SAT 100
--- NOTE | 2025-06-15 14:18 | ED_ITS ---
HPI - General Adult General Chief complaint: GI Bleed Stated complaint: GI bleed? hx of ulcerative colitis Time Seen by Provider: 06/15/25 11:13 History of Present Illness HPI narrative: This is a 45 female with history of stage II metastatic breast cancer being treated for chemotherapy presenting for bloody diarrhea. Patient says that she has been having diarrhea essentially for the last 4 months as she has been undergoing chemotherapy. She has had another round of diarrhea over last 4 days however has now turned bloody. She also has crampy abdominal pain and pain in her rectum. Patient has noticed some discomfort with vaginal sex. Patient denies fevers chest pain difficulty breathing or urinary symptoms. Patient has required admission for dehydration colitis in the past. Patient is currently on steroids and her last dose was last night. Related Data Home Medications ?Medication ?Instructions ?Recorded ?Confirmed ?Last Taken ?Type ivermectin 1 % topical cream 1 applic topical DIRECTED 08/30/23 04/30/25 Unknown History (Soolantra) cholecalciferol (vitamin D3) 10 6,000 unit PO DAILY 01/25/25 04/30/25 Unknown History mcg (400 unit) chewable tablet (Vitamin D3) multivitamin (Daily Multi-Vitamin 1 tablet PO DAILY 01/25/25 04/30/25 Unknown History tablet) dexamethasone 4 mg tablet 4 mg PO .3 days 03/24/25 04/30/25 Unknown History ondansetron HCl 8 mg tablet 8 mg PO Q8H PRN nausea and vomiting 03/24/25 04/30/25 Unknown History valacyclovir 500 mg tablet 500 mg PO DAILY 03/24/25 04/30/25 Unknown History Allergies Allergy/AdvReac Type Severity Reaction Status Date / Time butorphanol Allergy Intermediate Palpitation Verified 06/15/25 11:12 s egg AdvReac Intermediate Vomiting Verified 06/15/25 11:12 ketorolac AdvReac Intermediate Palpitation Verified 06/15/25 11:12 s PMFSH Past Medical History Medical History Morbid obesity Rosacea Anxiety Diarrhea Otitis media Depression Hypothyroidism, unspecified Migraine without aura and without status migrainosus, not intractable Surgical History Surgical History H/O breast biopsy Family History Family History Sibling Hypertension Patient's sister is in good health, Onset Age: 38 Patient's brother is in good health, Onset Age: 33 Family history of elevated blood lipids, Onset Age: 36 Diabetes mellitus Father Hypertension Family history of elevated blood lipids, Onset Age: 57 Family history of diabetes mellitus in first degree relative, Onset Age: 57 Diabetes mellitus Mother Family history of chronic obstructive pulmonary disease Family history of coronary artery disease, Onset Age: 54 Social History Social History Smoking status: Never smoker Second hand tobacco smoke exposure: No Alcohol intake: never Substance use: never Substance use type: does not use Do You Feel Safe in your Home?: Yes Lack of Transportation: No Lack of Food: Never True Current Housing: Decline to Answer Concerned About Future Housing: Decline to Answer Difficulty Paying Gas/Electric Bills: Decline to Answer Difficulty Paying for Meds: Decline to Answer Currently Unemployed: Decline to Answer Education: Decline to Answer Difficulty w/ Childcare or Family Care: Decline to Answer Living arrangements: with family Occupation/Education: occupation Gender identity (if verbalized by the patient): Female Sexual Orientation (if Verbalized by the Patient): Straight or Heterosexual Spiritual care concerns: No Exam 2 Narrative: APPEARANCE: No apparent distress. Head: atraumatic. EYES: EOMI, NOSE: Atraumatic NECK: Trachea midline RESPIRATORY: No increased rate of breathing CARDIOVASCULAR: RRR, ABDOMINAL: Soft nontender no guarding rebound Rectal exam: No external fissures or hemorrhoids. No stool in the rectal vault, no blood MUSCULOSKELETAl: No obvious deformities NEURO: Alert. Moving 4/4 extremities SKIN:: Warm, dry. Normal color PSYCHIATRIC: Normal affect Course Vital Signs Vital signs: Vital Signs Temperature 97.8 F 06/15/25 11:07 Pulse Rate 105 H 06/15/25 11:07 Respiratory Rate 18 06/15/25 11:07 Blood Pressure 152/82 H 06/15/25 11:07 Pulse Oximetry 98 06/15/25 11:07 Oxygen Delivery Room Air 06/15/25 11:07 Temperature 97.8 F 06/15/25 11:07 Pulse Rate 77 06/15/25 13:06 Respiratory Rate 18 06/15/25 13:06 Blood Pressure 109/80 06/15/25 13:06 Pulse Oximetry 100 06/15/25 13:06 Oxygen Delivery Room Air 06/15/25 11:07 Medical Decision Making [facility] Narrative Medical decision making narrative: -Course: 45-year-old female on chemotherapy for breast cancer presenting with bloody diarrhea. On arrival patient is tachycardic at 105. White count is elevated at 16 although she is on steroids at this could be infection versus steroid use. Patient technically meets sepsis criteria. Patient given 30 cc/kilogram bolus. CT abdomen pelvis showed thickening of the colon on the right side consistent with colitis. Patient be started on ceftriaxone and Flagyl. She will be placed in observation overnight for fluid rehydration. -DDX includes but is not limited to: Infectious versus inflammatory Colitis, chemotherapy side effect, dehydration, sepsis -Co-morbidities complicating care: Breast cancer Vital Signs Vital Signs: Vital Signs Temperature 97.8 F 06/15/25 11:07 Pulse Rate 105 H 06/15/25 11:07 Respiratory Rate 18 06/15/25 11:07 Blood Pressure 152/82 H 06/15/25 11:07 Pulse Oximetry 98 06/15/25 11:07 Oxygen Delivery Room Air 06/15/25 11:07 Temperature 97.8 F 06/15/25 11:07 Pulse Rate 77 06/15/25 13:06 Respiratory Rate 18 06/15/25 13:06 Blood Pressure 109/80 06/15/25 13:06 Pulse Oximetry 100 06/15/25 13:06 Oxygen Delivery Room Air 06/15/25 11:07 Lab Data 06/15/25 11:20 06/15/25 11:20 Labs: Lab Results 06/15/25 Range/Units 11:20 WBC 16.8 H (4.5-10.0) K/mm3 RBC 3.44 L (4.2-5.4) M/mm3 Hgb 11.1 L (12.0-15.0) g/dL Hct 33.9 L (37.0-47.0) % MCV 98.5 (80-100) fl MCH 32.3 (26-34) pg MCHC 32.7 (32-36) g/dl RDW 16.4 H (11.5-14.5) % Plt Count 197 (150-375) k/mm3 MPV 10.2 (7.4-10.4) fl Immature Gran % (Auto) 8.4 H (0-0.5) % Neut % (Auto) 79.9 H (45.5-73.1) % Lymph % (Auto) 9.7 L (18.3-44.2) % Mcclain % (Auto) 1.9 L (2.6-8.5) % Eos % (Auto) 0.0 (0-4.4) % Baso % (Auto) 0.1 L (0.2-1.2) % Lymph # (Auto) 1.64 (0.9-3.2) K/mm3 Mcclain # (Auto) 0.3 (0.1-0.6) K/mm3 Eos # (Auto) 0.0 (0-0.3) K/mm3 Baso # (Auto) 0.0 (0.0-0.1) K/mm3 Abs Immat Gran (auto) 1.41 H (0.00-0.031) K/mm3 Absolute Neuts (auto) 13.5 H (1.3-6.7) K/mm3 Absolute Nucleated RBC 0.000 (0.0-0.012) K/mm3 Nucleated RBC % 0.0 (0.0-0.2) % PT 14.0 (11.1-14.7) Seconds INR 1.1 APTT 23.4 (22.3-36.8) Seconds Sodium 139 (137-145) mmol/L Potassium 3.3 L (3.4-5.0) mmol/L Chloride 106 (98-107) mmol/L Carbon Dioxide 24 (22-30) mmol/L Anion Gap 9 (4-12) mmol/L BUN 19 H (7-17) mg/dL Creatinine 0.80 (0.7-1.0) mg/dL Estim Creat Clear Calc 91 ml/min Estimated GFR > 60 (59 - ) Glucose 131 H (65-110) mg/dL Calcium 9.6 (8.4-10.2) mg/dL Total Bilirubin 1.6 H (0.2-1.3) mg/dL AST 35 (14-36) U/L ALT 42 H (6-35) U/L Alkaline Phosphatase 41 (38-126) U/L Total Protein 7.0 (6.3-8.2) g/dL Albumin 4.2 (3.5-5.1) g/dL Blood Type O Positive Antibody Screen Negative Discharge Plan Discharge Clinical Impression: Colitis Patient Disposition: Still a Patient Condition: Stable Patient Language: Chinese Prescriptions: No Action ivermectin [Soolantra] 1 % cream 1 applic TOPICAL DIRECTED Patient Comments: . ondansetron HCl 8 mg tablet 8 mg PO Q8H PRN (Reason: nausea and vomiting) Patient Comments: . valacyclovir 500 mg tablet 500 mg PO DAILY dexamethasone 4 mg tablet 4 mg PO .3 days Patient Comments: . meclizine 25 mg tablet 25 mg PO TID PRN (Reason: dizziness) 10 Days Qty: 30 0RF Patient Comments: . multivitamin [Daily Multi-Vitamin] Tablet 1 tablet PO DAILY Patient Comments: . cholecalciferol (vitamin D3) [Vitamin D3] 10 mcg (400 unit) tablet,chewable 6,000 unit PO DAILY Patient Comments: ..... sertraline 50 mg tablet 50 mg PO DAILY Qty: 90 1RF levothyroxine 175 mcg tablet 175 mcg PO .COMPLEX Qty: 90 2RF Patient Comments: not to take on sundays Rx Instructions: 175 mcg orally; Take 1 tab PO daily, skip dose on Sundays Follow-up/Referrals: Trey Shen MD [Primary Care Provider] -
[2025-06-15] MEDS: SODIUM CHLORIDE 0.9% IV 300 ML 999 ML IV CONT (14:29)
[2025-06-15] MEDS: metroNIDAZOLE 500 MG/ISO 100ML 500 MG/100 ML BAG 100 MG IVPB ×2 (14:30→21:12)
[2025-06-15 14:36] VITALS: BP 134/90; PULSE 76; RESP 18; O2SAT 100
--- NOTE | 2025-06-15 15:12 | P.HP_ITS ---
H&P: HPI History of Present Illness Date/Time: 06/15/25 15:12 Chief Complaint: Bright red blood per rectum Narrative: 45-year-old female past medical history of breast cancer stage II currently undergoing chemotherapy presents to the hospital with bright red blood per rectum. She states that she has had diarrhea since she started chemotherapy. She states that 4 days ago she noticed that she started having bloody diarrhea. She also complains of abdominal cramping and rectal pain. Patient does state that her diarrhea is more water in the normal with mucousy like consistency in the hospital. Patient states that she felt like a month or so ago diarrheal like this and when she presented to the hospital in told her she had colitis and she was treated with Flagyl. Patient leukocytosis at 16.8, hemoglobin of 11.1 which is around baseline, potassium 3.3, AST of 42, abdominal CT shows questionable mild wall thickening of the right colon versus underdistention. Differentials include colitis versus infectious to colitis the patient was started on antibiotics Rocephin and Flagyl in the emergency room along with 3 L fluid bolus for acute dehydration. Review of Systems Review of Systems: 12 systems were reviewed and are negativ e except for as per HPI. PMFSH Past Medical History Medical History Morbid obesity Rosacea Anxiety Diarrhea Otitis media Depression Hypothyroidism, unspecified Migraine without aura and without status migrainosus, not intractable Surgical History Surgical History H/O breast biopsy Family History Family History Sibling Hypertension Patient's sister is in good health, Onset Age: 38 Patient's brother is in good health, Onset Age: 33 Family history of elevated blood lipids, Onset Age: 36 Diabetes mellitus Father Hypertension Family history of elevated blood lipids, Onset Age: 57 Family history of diabetes mellitus in first degree relative, Onset Age: 57 Diabetes mellitus Mother Family history of chronic obstructive pulmonary disease Family history of coronary artery disease, Onset Age: 54 Social History Social History Smoking status: Never smoker Second hand tobacco smoke exposure: No Alcohol intake: never Substance use: never Substance use type: does not use Do You Feel Safe in your Home?: Yes Lack of Transportation: No Lack of Food: Never True Current Housing: Decline to Answer Concerned About Future Housing: Decline to Answer Difficulty Paying Gas/Electric Bills: Decline to Answer Difficulty Paying for Meds: Decline to Answer Currently Unemployed: Decline to Answer Education: Decline to Answer Difficulty w/ Childcare or Family Care: Decline to Answer Living arrangements: with family Occupation/Education: occupation Gender identity (if verbalized by the patient): Female Sexual Orientation (if Verbalized by the Patient): Straight or Heterosexual Spiritual care concerns: No Meds Home Medications and Allergies Home Medications ?Medication ?Instructions ?Recorded ?Confirmed ?Type meclizine 25 mg tablet 25 mg PO TID PRN dizziness 10 days 09/11/24 06/15/25 Rx #30 tabs sertraline 50 mg tablet 50 mg PO DAILY #90 tabs 01/08/25 06/15/25 Rx cholecalciferol (vitamin D3) 10 6,000 unit PO DAILY 01/25/25 06/15/25 History mcg (400 unit) chewable tablet (Vitamin D3) multivitamin (Daily Multi-Vitamin 1 tablet PO DAILY 01/25/25 06/15/25 History tablet) ondansetron HCl 8 mg tablet 8 mg PO Q8H PRN nausea and vomiting 03/24/25 06/15/25 History valacyclovir 500 mg tablet 500 mg PO DAILY 03/24/25 06/15/25 History levothyroxine 175 mcg tablet 175 mcg PO .COMPLEX #90 tabs 05/02/25 06/15/25 Rx Allergies Allergy/AdvReac Type Severity Reaction Status Date / Time butorphanol Allergy Intermediate Palpitation Verified 06/15/25 16:36 s latex AdvReac Severe Hives Verified 06/15/25 16:36 egg AdvReac Intermediate Vomiting Verified 06/15/25 16:36 ketorolac AdvReac Intermediate Palpitation Verified 06/15/25 16:36 s Vital Signs Vital Signs - 24 hr 06/15/25 11:07 06/15/25 13:06 06/15/25 14:36 Temperature 97.8 F Pulse Rate 105 H 77 76 Respiratory Rate 18 18 18 Blood Pressure 152/82 H 109/80 134/90 Pulse Oximetry 98 100 100 Oxygen Delivery Room Air Exam Narrative: General: well appearing, appears stated age. HEENT: normocephalic, atraumatic. Mucous membranes moist. EOMI, PERRLA, bilateral sclera anicteric, no conjunctival injection. Neck supple without JVD, lymphadenopathy, or bruit. Respiratory: clear to ascultation bilaterally. No rales/rhonic/wheezes. Cardiovascular: Regular rate and rhythm, normal S1-S2 upon ascultation. No murmurs, rubs, or clicks. PMI is nondisplaced, capillary refill less than 3 second. Abdomen: Soft, round, no pulsatile masses, nondistended and nontender. No rebound, no guarding. No CVA tenderness, no hepatosplenomegaly. Bowel sounds present to all four quadrants. No high pitch or tinkling sounds, resonant to percussion. Extremities: No cyanosis, clubbing, or edema present. Pulses are palpable 2/2. Active ROM to all four extremities. Neuro: Alert and orientated x 4. PERRLA. Cranial nerves 2-12 intact without focal deficit. Skin: Warm, dry, and intact, without rash, erythema, or lesion. Psych: pleasant, cooperative, normal speech, normal affect, no hallucinations, no dysarthia H&P: Results Labs Labs: Short CBC 06/15/25 Range/Units 11:20 WBC 16.8 H (4.5-10.0) K/mm3 Hgb 11.1 L (12.0-15.0) g/dL Hct 33.9 L (37.0-47.0) % Plt Count 197 (150-375) k/mm3 BMP 06/15/25 11:20 Sodium 139 Potassium 3.3 L Chloride 106 Carbon Dioxide 24 BUN 19 H Creatinine 0.80 Glucose 131 H Calcium 9.6 Liver Function 06/15/25 Range/Units 11:20 Total Bilirubin 1.6 H (0.2-1.3) mg/dL AST 35 (14-36) U/L ALT 42 H (6-35) U/L Alkaline Phosphatase 41 (38-126) U/L Albumin 4.2 (3.5-5.1) g/dL Assessment and Plan Assessment and plan (1) Colitis: Code(s): K52.9 - Noninfective gastroenteritis and colitis, unspecified Status: Acute Assessment and Plan: Possibly infectious due to patient being immune compromised Patient states that she has never been formally diagnosed with C diff prior however she feels like is which she had when she was treated for colitis on 03/28/2025 Continue Rocephin and Flagyl C diff positive already on Flagyl will keep Patient would benefit from Infectious Disease permissive consult for treatment on discharge (2) Anemia, unspecified: Qualifiers: Anemia type: unspecified type Qualified Code(s): D64.9 - Anemia, unspecified Code(s): D64.9 - Anemia, unspecified Status: Acute Assessment and Plan: Trend hemoglobin Transfuse for hemoglobin less than 7 no need for transfusion at this time (3) Hypothyroidism, unspecified: Qualifiers: Hypothyroidism type: unspecified Qualified Code(s): E03.9 - Hyp othyroidism, unspecified Code(s): E03.9 - Hypothyroidism, unspecified Status: Acute Assessment and Plan: Continue levothyroxine (4) HER2-positive carcinoma of left breast: Code(s): C50.912 - Malignant neoplasm of unspecified site of left female breast; Z17.31 - Human epidermal growth factor receptor 2 positive status Status: Acute Assessment and Plan: Continue Valtrex (5) Dehydration: Code(s): E86.0 - Dehydration Status: Acute Assessment and Plan: Fluid bolus followed by IVF for hydration Encourage oral intake Quality VTE Prophylaxis VTE prophylaxis: mechanical ordered If No VTE Prophylaxis Answer both mechanical and pharmacologic: Reason no pharmacologic proph: low risk/not indicated Hospitalist MIPS Advance Care Plan I have confirmed that the patient's Advanced Care Plan is present, code status is documented, or surrogate decision maker is listed in patient medical record.: Yes Medication Reconciliation I have utilized all available resources to obtain, update and review the patients current medications (includes all prescriptions, OTC, herbals, cannab is, and nutritional supplements).: Yes
[2025-06-15 15:19] VITALS: BP 129/79; PULSE 74; RESP 18; O2SAT 100
[2025-06-15 15:38] VITALS: BMI 40.9
[2025-06-15] MEDS: cefTRIAXone 1 GM in SODIUM CHLORIDE 0.9% IV 50 ML 100 ML IVPB (16:14)
[2025-06-15] MEDS: ONDANSETRON INJ 4 MG/2 ML VIAL IV PUSH (16:14)
[2025-06-15] MEDS: LACTATED RINGERS 1,000 ML 75 ML IV CONT (16:14)
[2025-06-15] MEDS: ACETAMINOPHEN 325 MG TABLET 650 MG PO (16:21)
[2025-06-15 20:11] LABS: Toxigenic C. Diff POSITIVE (NEGATIVE)
[2025-06-15 21:34] VITALS: BP 113/66; PULSE 68; RESP 16; TEMP 36.6; O2SAT 98
[2025-06-16] MEDS: VANCOMYCIN HCL 125 MG ORAL CAPSULE PO ×3 (00:18→11:42)
[2025-06-16] MEDS: WITCH HAZEL 40 PADS 1 PAD TOPICAL (00:23)
[2025-06-16] MEDS: ONDANSETRON INJ 4 MG/2 ML VIAL IV PUSH ×2 (00:23→08:56)
[2025-06-16] MEDS: metroNIDAZOLE 500 MG/ISO 100ML 500 MG/100 ML BAG 100 MG IVPB (05:24)
[2025-06-16] MEDS: LEVOTHYROXINE SODIUM 50 MCG TABLET PO (05:33)
[2025-06-16] MEDS: LACTATED RINGERS 1,000 ML 75 ML IV CONT (05:33)
[2025-06-16] MEDS: LEVOTHYROXINE SODIUM 125 MCG TABLET PO (05:33)
[2025-06-16 06:00] VITALS: BP 109/64; PULSE 69; RESP 16; TEMP 36.6; O2SAT 100
[2025-06-16 06:13] LABS: Hematocrit 29.4 % (37.0-47.0); Hemoglobin 9.4 g/dL (12.0-15.0); Immature Granulocyte Percent A 15.6 % (0-0.5); Lymphocytes Absolute Auto 1.49 K/mm3 (0.9-3.2); Mean Corpuscular HGB Conc 32.0 g/dl (32-36); Mean Corpuscular Hemoglobin 32.6 pg (26-34); Mean Corpuscular Volume 102.1 fl (80-100); Nucleated Red Blood Cells Absolute Auto 0.000 K/mm3 (0.0-0.012); Nucleated Red Blood Cells Perc 0.0 % (0.0-0.2); Platelet Count Result 139 k/mm3 (150-375); Red Blood Count 2.88 M/mm3 (4.2-5.4); White Blood Count 7.5 K/mm3 (4.5-10.0)
[2025-06-16 06:53] LABS: Burr Cells 1+; Macrocytosis 1+ (NORMAL); Ovalocytes 1+; Schistocytes None Seen; Tear Drop Cells 1+
[2025-06-16 07:06] LABS: Anion Gap 6 mmol/L (4-12); Blood Urea Nitrogen 12 mg/dL (7-17); Calcium 8.5 mg/dL (8.4-10.2); Carbon Dioxide 25 mmol/L (22-30); Chloride 108 mmol/L (98-107); Estimated CRCL calculation 102 ml/min; Estimated Glomerular Filt Rate > 60; Glucose 83 mg/dL (65-110); Potassium 3.3 mmol/L (3.4-5.0); Sodium 139 mmol/L (137-145)
[2025-06-16] MEDS: SERTRALINE HCL 50 MG TABLET PO (08:56)
[2025-06-16] MEDS: ACETAMINOPHEN 325 MG TABLET 650 MG PO (09:01)
--- NOTE | 2025-06-16 11:32 | P.DS_ITS ---
DS: Admitting Diagnosis Discharge Date 06/16/2025 Admitting Diagnosis Colitis/ C diff DS: Discharge Diagnosis Discharge Diagnosis (1) Colitis: Code(s): K52.9 - Noninfective gastroenteritis and colitis, unspecified Status: Acute (2) Anemia, unspecified: Qualifiers: Anemia type: unspecified type Qualified Code(s): D64.9 - Anemia, unspecified Code(s): D64.9 - Anemia, unspecified Status: Acute (3) Hypothyroidism, unspecified: Qualifiers: Hypothyroidism type: unspecified Qualified Code(s): E03.9 - Hypothyroidism, unspecified Code(s): E03.9 - Hypothyroidism, unspecified Status: Acute (4) HER2-positive carcinoma of left breast: Code(s): C50.912 - Malignant neoplasm of unspecified site of left female breast; Z17.31 - Human epidermal growth factor receptor 2 positive status Status: Acute (5) Dehydration: Code(s): E86.0 - Dehydration Status: Acute DS: Summary Hospital Course Reason for hospitalization: C diff colitis/ dehydration Hospital Course: Admission: Patient was a 45-year-old female past medical history of breast cancer stage II currently undergoing chemotherapy presents to the hospital with bright red blood per rectum. She states that she has had diarrhea since she started chemotherapy. She states that 4 days ago she noticed that she started having bloody diarrhea. She also complains of abdominal cramping and rectal pain. Patient does state that her diarrhea is more water in the normal with mucous like consistency in the hospital. Patient states that she felt like a month or so ago diarrheal like this and when she presented to the hospital in told her she had colitis and she was treated with Flagyl. In the ED: Patient leukocytosis at 16.8, hemoglobin of 11.1 which is around baseline, potassium 3.3, AST of 42, abdominal CT shows questionable mild wall thickening of the right colon versus underdistention. Differentials include colitis versus infectious to colitis the patient was started on antibiotics Rocephin and Flagyl in the emergency room along with 3 L fluid bolus for acute dehydration. Hospital course: patient was admitted to the medical unit for further evaluation of possible colitis she initially had been started on Rocephin and Flagyl however had A C diff which came back positive so I transition patient to oral vancomycin and discontinued her Flagyl and Rocephin. Patient was also receiving IV fluids and I advance diet as tolerated. patient with mild hypokalemia at 3.3 which time she did receive 40 mEq IV PB patient reports feeling better and diarrhea was improving after the initiation oral vancomycin states she felt better and can tolerate oral intake was wanting to discharge home. Patient is seen and assessed at time of discharge in no acute distress with no new complaints. Patient was discharged home on 38 more doses of oral vancomycin I encouraged oral hydration and recommended using separate bathroom sent home from spouse. patient advised if symptoms worsen she has severe abdominal pain or bleeding from rectum to return for medical evaluation. Status at Discharge Functional status at discharge: independent ambulation Overall status at discharge: patient is progressing back to baseline Time Spent with Patient Time attestation: Total time spent providing and/or coordinating discharge services: Time spent: Greater than 30 minutes Exam Narrative: General: well appearing, appears stated age. HEENT: normocephalic, atraumatic. Mucous membranes moist Respiratory: clear to auscultation bilaterally. Cardiovascular: RRR Abdomen: Soft, round, bowel sounds present in all 4 quadrants Neuro: Alert and orientated x 4. Skin: Warm, dry, and intact, without rash, erythema, or lesion. Psych: pleasant, cooperative DS: Data Data Completed and Pending Labs on day of discharge: Labs from last 24 hours 06/16/25 06/15/25 06/15/25 06:02 17:59 11:20 WBC 7.5 16.8 H RBC 2.88 L 3.44 L Hgb 9.4 L 11.1 L Hct 29.4 L 33.9 L MCV 102.1 H 98.5 MCH 32.6 32.3 MCHC 32.0 32.7 RDW 16.0 H 16.4 H Plt Count 139 L 197 MPV 10.1 10.2 Immature Gran % (Auto) 15.6 H 8.4 H Neut % (Auto) 62.1 79.9 H Lymph % (Auto) 19.9 9.7 L [place] % (Auto) 1.2 L 1.9 L Eos % (Auto) 0.4 0.0 Baso % (Auto) 0.8 0.1 L Lymph # (Auto) 1.49 1.64 [place] # (Auto) 0.1 0.3 Eos # (Auto) 0.0 0.0 Baso # (Auto) 0.1 0.0 Abs Immat Gran (auto) 1.17 H 1.41 H Absolute Neuts (auto) 4.7 13.5 H Absolute Nucleated RBC 0.000 0.000 Band Neutrophils % Not Reportable Nucleated RBC % 0.0 0.0 Platelet Estimate Slightly decreased Macrocytosis 1+ Tear Drop Cells 1+ Ovalocytes 1+ [place] Cells 1+ Schistocytes None seen PT 14.0 INR 1.1 APTT 23.4 Sodium 139 139 Potassium 3.3 L 3.3 L Chloride 108 H 106 Carbon Dioxide 25 24 Anion Gap 6 9 BUN 12 D 19 H Creatinine 0.71 0.80 Estim Creat Clear Calc 102 91 Estimated GFR > 60 > 60 Glucose 83 131 H Calcium 8.5 9.6 Total Bilirubin 1.6 H AST 35 ALT 42 H Alkaline Phosphatase 41 Total Protein 7.0 Albumin 4.2 C. difficile (PCR) Positive A* Blood Type O Positive Antibody Screen Negative Imaging Radiologist's impression: CT of the Abdomen and Pelvis: Indication: Bloody diarrhea Technique: 2.5 mm axial scans were obtained through the abdomen and pelvis following intravenous administration of 100 cc of Omnipaque 350. Dose reduction technique was used on this scan by utilizing automated exposure control and iterative reconstruction technique. The dose-length product (DLP) was 1297.37 mGy-cm. COMPARISON: 03/28/2025 Findings: Scans through the lung bases are unremarkable. The liver, spleen, pancreas, adrenals and kidneys are within normal limits. Cholecystectomy clips are present. No evidence of aortic aneurysm. No lymphadenopathy. Questionable mild wall thickening of the distal descending colon, spot hepatic flexure, and proximal transverse colon. No bowel obstruction. No abscess or free air. Images through the pelvis were performed. Urinary bladder unremarkable. No pelvic mass seen. No ascites. Impression: Questionable mild wall thickening of the right colon, as above, versus underdistention. Correlate for infectious/inflammatory colitis. Discharge Plan Discharge Attending physician on discharge: Jimmy Viveros Consulting providers: Joi Villasenor Discharging Clinician: Joi Villasenor Anticipated Discharge Date/Time: 06/16/25 11:29 Patient Disposition: Home Activity: may shower and as tolerated Diet: regular Discharge Instructions: 1)C-diff * I have prescribed oral vancomycin need to complete 40 doses for therapy * encourage to increase your fluid intake * do not use Imodium How can you care for yourself at home? ? Keep track of any new symptoms or changes in your symptoms. ? Rest until you feel better. ? Be safe with medicines. Take your medicines exactly as prescribed. Call your doctor if you think you are having a problem with your medicine. ? Do not drive after taking a prescription pain medicine. ? Ensure to follow-up with primary care physician as indicated and provide updated medication list provided to you at discharge. When should you call for help? Call 911 anytime you think you may need emergency care. For example, call if: ? You passed out (lost consciousness). Call your doctor now or seek immediate medical care if: ? You have new symptoms like fever, difficulty breathing, Chest pain, vomiting, or rash. ? You have new or different pain. ? You are confused and are having trouble thinking clearly. ? Your symptoms are getting worse. Watch closely for changes in your health, and be sure to contact your doctor if: ? You do not get better as expected. Patient Instructions: Antibiotic Form, C. Diff (Clostridioides Difficile) Infection (DC), C. Diff (Clostridioides Difficile) Infection (GEN) Patient Language: Burmese Stand Alone Forms: General Discharge Information Follow-up/Referrals: Trey Shen MD [Primary Care Provider] - 2 Weeks Discharge Medications: New vancomycin 125 mg Capsule 125 mg PO Q6HR Qty: 38 0RF Continued ondansetron HCl 8 mg tablet 8 mg PO Q8H PRN (Reason: nausea and vomiting) Patient Comments: . valacyclovir 500 mg tablet 500 mg PO DAILY meclizine 25 mg tablet 25 mg PO TID PRN (Reason: dizziness) 10 Days Qty: 30 0RF Patient Comments: . multivitamin [Daily Multi-Vitamin] Tablet 1 tablet PO DAILY Patient Comments: . cholecalciferol (vitamin D3) [Vitamin D3] 10 mcg (400 unit) tablet,chewable 6,000 unit PO DAILY Patient Comments: ..... sertraline 50 mg tablet 50 mg PO DAILY Qty: 90 1RF levothyroxine 175 mcg tablet 175 mcg PO .COMPLEX Qty: 90 2RF Patient Comments: not to take on sundays Rx Instructions: 175 mcg orally; Take 1 tab PO daily, skip dose on Sundays Date of admission: 06/15/25 14:39 Primary Care Provider: Trey Shen Admitting Provider: Jimmy Viveros Attending physician on admission: Jimmy Viveros Condition: Stable Quality VTE Prophylaxis VTE prophylaxis: mechanical ordered -Patient's previous records reviewed on admission -ER notes reviewed in detail on admission -discussed all findings and current treatment plan with patient/Family/POA -Consultations reviewed for recommendations -Patient's disposition for safe discharge discussed with home health care case manager Dictation performed by [employer] direct speech recognition software, therefore stamp collector variants and typographical errors may occur. Hospitalist MIPS Heart Failure (Exclusion) Patient has history of Heart Transplant or Left Ventricular Assistive Device?: No IF YES, STOP HERE Heart Failure (Qualifier) Patient has current or prior documentation of LVEF less than or equal to 40%, or mod/servere depressed LVSF?: No IF NO, STOP HERE
[2025-06-16] MEDS: POTASSIUM CHLORIDE 20 MEQ ER TABLET 40 MEQ PO (11:43)
== END 2025-06-16 12:20 | disposition home or self-care (01) ==
LOC: ANHED 14:44 → ANH3MED 15:29
PROVIDERS: Nurse Practitioner Gerontology; Admitting Provider Family Medicine; Emergency Provider Emergency Medicine; PCP Family Medicine; Visit Provider Family Medicine
DX: K52.9 Noninfective gastroenteritis and colitis, unspecified (principal); C50.912 Malignant neoplasm of unspecified site of left female breast; C79.9 Secondary malignant neoplasm of unspecified site; D64.9 Anemia, unspecified; E03.9 Hypothyroidism, unspecified; F41.8 Other specified anxiety disorders; Z17.31 Human epidermal growth factor receptor 2 positive status; E86.0 Dehydration
CPT/HCPCS: 36415; 74177; 80048; 80053; 85025; 85610; 85730; 86850; 86900; 86901; 87045; 87046; 87427; 87493; 96361; 96366; 96374; 96375; 96376; 99285; A9270; G0378; J0696; J1836; J2405; J7030; J7120; Q9967

== ENCOUNTER 2025-06-19 13:56 | Outpatient (CLI) | payer OTHER, SELFPAY ==
--- NOTE | ~2025-06-19 | MR_ITS ---
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 TECHNIQUE: MRI of the breasts perform using standard protocol pre-and post IV contrast with the follo wing sequences: Axial T2 STIR, axial T1, axial vibrant T1 with fat suppression precontrast and multip hasic postcontrast. 20 cc MultiHance administered intravenously. COMPARISON: Comparison to multiple prior studies sequentially, with oldest reviewed study dated 05/2022. FINDINGS: There are no abnormalities on the precontrast sequences. There is mild background parenchym al enhancement. No enhancing lesions following contrast administration. No areas of enhancement darin ting threshold criteria on CAD analysis. No evidence of signal abnormalities in the axillary or inte rnal mammary node distributions. LEFT BREAST: No signal abnormalities on precontrast sequences. There is mild background parenchymal enhancement. No enhancing lesions following contrast administration. Interval resolution of enhanci ng mass demonstrated in the upper inner quadrant on prior MRI examination. This likely corresponds to interval resection or chemotherapy/radiation therapy treatment. Clinically correlate. Interval resol ution of left axillary lymph nodes. No areas of enhancement meeting threshold criteria on CAD analysi s. No evidence of signal abnormalities in the axillary or internal mammary node distributions.] IMPRESSION: 1: Right breast: Negative. No evidence of malignancy. 2: Left breast: Negative. No evidence of malignancy. Recommendation: Recommend correlation with diagnostic bilateral mammogram and additional ultrasound a s clinically warranted. BI-RADS CATEGORY 0 - INCOMPLETE STUDY, NEED ADDITIONAL IMAGING EVALUATION. Reviewed, dictated and finalized at location A. IMPRESSION: 1: Right breast: Negative. No evidence of malignancy. 2: Left breast: Negative. No evidence of malignancy. Recommendation: Recommend correlation with diagnostic bilateral mammogram and a dditional ultrasound as clinically warranted. BI-RADS CATEGORY 0 - INCOMPLETE STUDY, NEED ADDITIONAL IMAGING EVALUATION.
--- OUTSIDE RECORDS SUMMARY | 2025-06-19 14:04 | XMS_ITS | Data Portability ---
Author Organization [facility] [employer], Main Office Address [address] [place] [address] Assessment No assessment recorded. Plan of Treatment Reminders Order Date Submit Date Provider Last Modified By Organization Details Last Modified Time Details Appointments None recorded. Lab None recorded. Referral None recorded. Procedures None recorded. Surgeries None recorded. Imaging audiogram + tympanogram 2023 024 [email or web address] 42 [facility], [address] [place] [address], [place], [address], 5 17:21:49 Medication Orders None recorded. Patient TargetsNo targets recorded. Patient Instructions Encounter Date Encounter Id Patient Instructions Last Modified By Organization Details Last Modified Time 09/13/2024 [id number] alia-hallpike test* Not available 03/12/2025 08:32:13 continue use of meclizine as needed for vertigo symptoms. She will see PT for Alia-Hallpike testing for possible BPPV. We will also obtain an audiogram and tympanogram for further testing. [email or web address] Not available 09/13/2024 16:04:48 Reason for Referral None Reported. Problems Name Problem SNOMED Code Status Onset Date Resolution Date Notes Provider Name and Address Organization Details Recorded Time Vertigo 216796651 Active 2023 Prince Calderon CMA null, [facility] 15:59:06 Sensorineural hearing loss 59619093 Active 2023 Prince Calderon CMA null, [facility] 16:00:48 Benign paroxysmal positional vertigo 129350370 Active 2023 HUGH Arrington [address] [facility] [address], [place], [address] [place] [address] [email or web address] 16:03:52 Problem Notes None recorded. Procedures Surgical History Date Name Laterality Status Provider Name and Address Organization Details Recorded Time 07/31/20 19 Tubal Ligation completed Prince Calderon CMA [facility] 09/13/2024 15:42:59 12/30/19 04 cholecystectomy completed Prince Calderon CMA [facility] 09/13/2024 15:42:31 Imaging Results None recorded. Procedure Notes None recorded. Medical Equipment None Reported. Allergies Allergen ID Allergen Name Allergen Category Reaction Reaction Severity Criticality Documentation Date Start Date Code Code System Note Provider Name and Address Organization Details Recorded Time 60557 Toradol medicatio n palpitati ons Not available Not available 09/12/2024 26086 RxNorm Lynn Carter [facility] 12:54:34 90884 Stadol medicatio n palpitati ons Not available Not available 09/13/2024 56753 RxNorm Prince Calderon COMPOSITE SCIENCE TEACHER [facility] 15:38:10 Medications Name Sig Start Date [...] Address Organization Details Last Updated DateTime 09/13/2024 315174.2 g 98 [degF] 45 kg/m2 162.56 cm Prince Calderon CMA [employer] [facility] 09/13/2024 15:37:32 Social History Question Answer Notes LastModified by Organizat ion Details LastModified Time Tobacco Smoking Status Never Smoker Lynn Bustamanterhoda sumner [employer] 09/12/2024 12:56:45 What Is Your Level Of Caffeine Consumption? Occasional Coffee [email or web address] Information not available 09/13/2024 Sex: Unknown Functional Status Question Answer Note LastModified by Organization D etails LastModified Time What is your level of alcohol consumption? None Information not available 09/12/2024 Mental Status None recorded. Family History Relationship Description Onset Age of this Age Resolved Age Notes LastModified by Organization Details LastModified Time Father Diabetes mellitus [email or web address] Not available 2023 15:43:22 Father Family history of stroke [email or web address] Not available 2023 15:43:39 Mother Heart disease [email or web address] Not available 2023 15:43:46 Medical History Condition Response MRSA N BACK INJECTIONS N ALLERGIES/HAYFEVER N LUNG DISEASE/DISORDER N INSOMNIA N HISTORY OF DRUG ABUSE N ESRD N RADIATION / CHEMOTHERAPY N COPD N HIGH CHOLESTEROL / HYPERLIPIDEMIA N HYPERTHYROIDISM Y PVD N BLOOD DISEASES N EAR OR HEARING PROBLEMS N HYPOTHYROIDISM N SHINGLES N DEPRESSION (INCLUDING POST ) N BACK / NECK PROBLEMS N HAVE YOU BEEN HOSPITALIZED OR SEEN IN [facility] ER IN THE PAST YEAR ? N FAILED BACK SYNDROME N STROKE/TIA N POLYCYSTIC OVARIES N OBESITY N HISTORY WITH COMPLICATIONS WITH ANESTHES IA ? N ANEURYSM N Do you have Advance [...] SNOMED-CT Code Diagnosis ICD10 Code Diagnosis Note [id number] Dave Webb MD [facility] [place] [address] [place] [address] 09/13/2024 15:26:45 09/13/2024 16:05:18 Benign paroxysmal positional vertigo 183896333 H81.10 Health Concerns Section Related Observation LastModified by Organization Detai ls LastModified Time None Recorded Concern Status LastModified by Organization Details LastModified Time None Recorded Advance Directives Directive None Recorded Payers Insurance Date Sequence Insurance Name Policy Number Policy Castro Covered Member ID Castro Member ID Guarantor Name 09/13/2024 1 [employer] - OPEN ACCESS Austin Dong [id number] Austin Dong Notes Date Note Type Note [...] also notes if she moves her head rary-ag-aeun quickly this can also elicit symptoms. She also reports that when her spouse was watching football on the television the other day, this too was causing vertigo like symptoms. Bettie Ibarra, ISOTOPE TECHNICIAN [address] [facility], [facility] [address], [place], [address], [place] - [facility] 09/13/2024 16:04:52 OBGyn Episode No OBEpisode recorded.
--- OUTSIDE RECORDS SUMMARY | 2025-06-19 14:04 | XMS_ITS | Clinical Summary ---
Author Organization [facility] [address] [place] [address] Care Team Providers Care Textile Slitting Machine Operator Name Role Phone Trey Shen MD [...] 12/05/2024 Assessment & Plan (12/05/2024 3:05 PM INVESTIGATOR FRAUD): I counseled the patient on exercise: Recommend [...] 12/05/2024 Assessment & Plan (12/05/2024 3:57 PM INVESTIGATOR FRAUD): Patient's highest BMI was 48.6 ; initial BMI was 46.8; this has improved to 41.07 through medical management Vitamin D deficiency 09/12/2024 Assessment & Plan (12/05/2024 3:06 PM INVESTIGATOR FRAUD): Continue vitamin-D supplementation Assessment & Plan (09/12/2024 4:10 PM CDT): start vitamin-D replacement 5,000IU daily Encounter for weight loss counseling 07/11/2024 Assessment & Plan (12/05/2024 3:05 PM INVESTIGATOR FRAUD): Reviewed importance of adequate protein intake. Reviewed [...] 07/11/2024 Assessment & Plan (12/05/2024 3:05 PM INVESTIGATOR FRAUD): Obesity is one of the leading risk [...] 03/21/2018 Assessment & Plan (12/05/2024 4:18 PM INVESTIGATOR FRAUD): Reviewed most recent labs. Continue low carb, [...] 03/21/2018 Assessment & Plan (12/05/2024 3:05 PM INVESTIGATOR FRAUD): Continue current dose of levothyroxine. Assessment & [...] on file Legal Sex Female 7:08 PM INVESTIGATOR FRAUD Gender Identity Not on file Sexual Orientation [...] (239 lb 6.4 oz) 12/05/2024 3:55 PM INVESTIGATOR FRAUD Height 162.6 cm (5' 4.02) 12/05/2024 3:55 PM CS T Body Mass Index 41.07 12/05/2024 3:55 PM INVESTIGATOR FRAUD Plan of Treatment Health Maintenance Due Date [...] age to complete this topic Insurance [facility] [id number] Care Teams Textile Slitting Machine Operator Relationship Specialty Start Date End Date Trey Shen MD [address] [facility] [address] [place] [address] PCP - General Family Medicine 03/10/18
--- OUTSIDE RECORDS SUMMARY | 2025-06-19 14:04 | XMS_ITS | Referral Summary ---
Author Organization [facility] Building [address] [place] [address] Care Team Providers Care Tooth Inspector Name Role Phone Trey Shen MD Primary [...] 12/05/2024 Assessment & Plan (12/05/2024 3:05 PM SALES PROGRAM MANAGER): I counseled the patient on exercise: Recommend [...] 12/05/2024 Assessment & Plan (12/05/2024 3:57 PM SALES PROGRAM MANAGER): Patient's highest BMI was 48.6 ; initial BMI was 46.8; this has improved to 41.07 through medical management Vitamin D deficiency 09/12/2024 Assessment & Plan (12/05/2024 3:06 PM SALES PROGRAM MANAGER): Continue vitamin-D supplementation Assessment & Plan (09/12/2024 4:10 PM CDT): start vitamin-D replacement 5,000IU daily Encounter for weight loss counseling 07/11/2024 Assessment & Plan (12/05/2024 3:05 PM SALES PROGRAM MANAGER): Reviewed importance of adequate protein intake. Reviewed [...] 07/11/2024 Assessment & Plan (12/05/2024 3:05 PM SALES PROGRAM MANAGER): Obesity is one of the leading risk [...] 03/21/2018 Assessment & Plan (12/05/2024 4:18 PM SALES PROGRAM MANAGER): Reviewed most recent labs. Continue low carb, [...] 03/21/2018 Assessment & Plan (12/05/2024 3:05 PM SALES PROGRAM MANAGER): Continue current dose of levothyroxine. Assessment & [...] on file Legal Sex Female 7:08 PM SALES PROGRAM MANAGER Gender Identity Not on file Sexual [...] (239 lb 6.4 oz) 12/05/2024 3:55 PM SALES PROGRAM MANAGER Height 162.6 cm (5' 4.02) 12/05/2024 3:55 PM CS T Body Mass Index 41.07 12/05/2024 3:55 PM SALES PROGRAM MANAGER Plan of Treatment Not on file Insurance [facility] [id number] Care Teams Tooth Inspector Relationship Specialty Start Date End Date Trey Shen MD [address] [facility] [address] [place] [address] PCP - General Family Medicine 03/10/18
--- OUTSIDE RECORDS SUMMARY | 2025-06-19 14:04 | XMS_ITS | Data Portability ---
Author Organization 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 Name Role Phone STEFAN MCLAUGHLIN Primary Care [...] mammogram due to mass found in right [email or web address] Not available 07/30/2021 10:56:08 02/17/2024 02/17/2024 Annual [...] screening, digital, bilateral 2023 024 [facility], [address], [address], [place], [address], 4 05:01:18 US, pelvis 2020 021 [email or web address] [place], [address], [place], [address], 07:22:39 US, transvagina l 2020 021 [email or web address] [place], [address], [place], [address], 07:22:39 US, pelvis, complete 2020 [email or web address] Not [...] Autho amy g Provi cee: Solange Gambino, LEATHER TOOLER Colle cted: 07/30 1304 Order ing Locat [...] as clini tyrell mullins nted. Not Available [facility] (Lab) [address], [place], [address], 08/03/2021 19:24:02 02/17/20 24 02/17/2024 IMAGE GUIDE D PAP AND HPV REGAR DLESS image guided Pap, HPV regardless of Pap result SEE RESULT S BELOW CASE REPOR T: Cytol ogy Gynec ologi nas Repor t Case: [id number] Autho amy caputo Provi cee: Arely Del Castillo, LEATHER TOOLER Colle cted: 02/16 1016 Order ing Locat [...] as clini tyrell warra nted. Not Available [facility] (Lab) [address], [place], [address], 02/22/2024 15:56:44 08/01/20 21 08/01/2021 US, trans alicein al No observ ation [facility] ed[facility] [address], [place], [address], 08/05/2021 17:01:44 08/01/20 21 08/01/2021 US, earlene amezquita No observ ation record ed. [facility] [address], [place], [address], 08/01/2021 17:08:35 08/01/20 21 08/01/2021 US, trans alicein al No observ ation record ed. [facility] [address], [place], [address], 08/01/2021 17:08:44 Result Notes None recorded. Problems Name Problem SNOMED Code Status Onset Date Resolution Date Notes Provider Name and Address Organization Details Recorded Time Dysfunct ional uterine bleeding Completed 201007/29/2021 DUB;Vicenta julian ID: [address] [facility] 17:15:12 Nausea [id number] Completed 201007/29/2021 Nausea alone;Pr actice ID: [address] [facility] 17:16:08 Dysfunct ional uterine bleeding Completed 201008/15/2012 Other disorder s of menstrua tion and other abnormal bleeding from female genital tract;Re corded Elsewher e: No Locat ion: [facility] S ource: EHR Rn Hemo Dialysis luz: N Practi ce ID: 0001 Petr lable Time: 03:30:[address] [facility] 17:15:12 Speciali zed medical examinat ion Completed 201108/15/2012 Gynecolo gical Examinat ion;Toni rded Elsewher e: No Locat ion: [facility] S ource: EHR Rn Hemo Dialysis luz: N Vicentati ce ID: 0001 Petr lable Time: 11:30:00 AM Kari Najera [facility] 17:16:34 Screenin g for malignan t neoplasm of cervix Completed 201107/29/2021 Pap Smear;Pr actice ID: 0001 Kari Najera [facility] 17:16:26 Malaise and fatigue 073827593 Completed 201207/29/2021 Fatigue And Malaise; Practice ID: 0001 Kari Najera [facility] 17:16:04 Female genital organ symptoms 558550237 Completed 201207/29/2021 Unspecif ied symptom associat ed with female genital organs;P ractice ID: 0001 Kari sumner, [facility] 17:15:17 Speciali zed medical examinat ion Completed 201207/29/2021 Gynecolo gical Examinat ion;Toni rded Elsewher e: No Locat ion: [facility] S ource: EHR Rn Hemo Dialysis luz: N Practi ce ID: 0001 Petr lable Time: 03:00:00 PM Kari Najera [facility], [facility] 17:16:34 Breast lump [id number] Completed 201307/29/2021 Breast Lump Or Mass;Rec orded Elsewher e: No Locat ion: [facility] S ource: EHR Rn Hemo Dialysis luz: Y Practi ce ID: 0001 Petr lable Time: 04:30:00 PM Kari Najera [facility], [facility] 17:14:35 Increase d frequenc y of urinatio n [id number] Completed 201307/29/2021 Urinary frequenc y;Record ed Elsewher e: No Locat ion: [facility] S ource: EHR Rn Hemo Dialysis luz: N Practi ce ID: 0001 Petr lable Time: 02:00:00 PM Kari sumner [facility] 17:15:59 Adult health examinat ion Completed 201307/29/2021 ROUTINE MEDICAL EXAM;Rec orded Elsewher e: No Locat ion: [facility] S ource: EHR Rn Hemo Dialysis luz: N Practi ce ID: 0001 Petr lable Time: 02:00:00 PM Kari Najera [facility], [facility] 17:14:08 Clinical finding Completed 201507/29/2021 Presence of (intraut erine) contrace ptive device;R ecorded Elsewher e: No Locat ion: [facility] S ource: EHR Rn Hemo Dialysis luz: N Practi ce ID: 0001 Petr lable Time: 12:45:00 PM Kari Reinaldo sumner, [facility] 17:14:38 Insertio n of intraute rine contrace ptive device Completed 201507/29/2021 Encounte r for insertio n of intraute rine contrace ptive device;R ecorded Elsewher e: No Locat ion: [facility] Practi [facility] ID: 0001 Petr lable Time: 12:45:00 PM Kari sumner, [facility] 17:16:02 Microsco pic hematuri a [id number] Completed 201507/29/2021 Other microsco pic hematuri a;Practi ce ID: 0001 Kari sumner, [facility] 17:16:06 Surveill ance of contrace ption Completed 201507/29/2021 Encounte r for surveill ance of contrace ptives, unspecif ied;Prac julian ID: 0001 Kari Najera null, [facility] 17:16:[address] Concept Completed 201607/29/2021 Encntr for general adult medical exam w/o abnormal findings ;Recorde d Elsewher e: No Locat ion: [facility] S ource: [facility] luz: N Practi ce ID: 0001 Petr lable Time: 09:30:00 AM Kari Reinaldo sumner [facility] 17:16:30 Removal of intraute rine device Completed 201607/29/2021 Encounte r for removal of intraute rine contrace ptive device;R ecorded Elsewher e: No Locat ion: [facility] S ource: [facility] N Practi ce ID: 0001 Petr lable Time: 08:45:00 AM Kari Reinaldo sumner [facility] 17:16:22 Lesion of ovary Completed 201607/29/2021 Other ovarian cyst, right side;Rec orded Elsewher e: No Locat ion: [facility] S ource: EHR Rn Hemo Dialysis luz: N Practi ce ID: 0001 Petr lable Time: 01:30:00 PM Kari Najera [facility], [facility] 17:14:55 Cyst of ovary Completed 201607/29/2021 Unspecif ied ovarian cyst, unspecif ied side;Rec orded Elsewher e: No Locat ion: [facility]: [facility] N Practi ce ID: 0001 Petr lable Time: 01:30:00 PM Kari Reinaldo sumner [facility] 17:14:40 Right lower quadrant pain 968100964 Completed 201607/29/2021 Right lower quadrant pain;Pra ctice ID: 0001 Kari Najera [facility], [facility] 17:16:24 Pelvic and perineal pain 442233135 Completed 201607/29/2021 Pelvic and perineal pain;Pra ctice ID: 0001 Kari Najera null, [facility] 17:16:12 Hypothyr oidism 55345406 Completed 201607/29/2021 Hypothyr oidism, unspecif ied;Prac julian ID: 0001 Kari Najera [facility], [facility] 17:15:57 Depressi ve disorder 53075527 Completed 201607/29/2021 Major depressi ve disorder , single episode, unspecif ied;Prac julian ID: 0001 Kari sumner, [facility] 17:15:09 Clinical finding Completed 201607/29/2021 Obesity, unspecif ied;Toni rded Elsewher e: No Locat ion: [facility] S ource: EHR Rn Hemo Dialysis luz: N Practi ce ID: 0001 Petr lable Time: 01:45:00 PM Kari sumner, [facility] 17:15:29 Acute vaginiti s 98208013 Completed 201607/29/2021 Acute vaginiti s;Practi ce ID: 0001 Kari sumner, [facility] 17:14:06 Pregnanc y test negative 467532185 Completed 201707/29/2021 Encounte r for pregnanc y test, result negative ;Practic e ID: 0001 Kari sumner, [facility] 17:16:18 Finding of menstrua l bleeding Completed 201707/29/2021 Excessiv e and frequent menstrua tion with regular cycle;Pr actice ID: 0001 Kari Najera [facility] 17:15:23 Finding of pattern of menstrua l cycle 714003625 Completed 201707/29/2021 Excessiv e and frequent menstrua tion with irregula r cycle;Pr actice ID: 0001 Kari sumner [facility] 17:15:25 Finding of regulari ty of menstrua l cycle Completed 201707/29/2021 Irregula r menstrua tion, unspecif ied;Prac julian ID: 0001 Kari sumner [facility] 17:15:27 Female genitali a finding Completed 201707/29/2021 Foreign body in vulva and vagina, sequela; Practice ID: 0001 Kari sumner [facility] 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 17:16:11 Pain in female genitali a Completed 201707/29/2021 Dysmenor xander, unspecif ied;Prac julian ID: 0001 Kari Reinaldo sumner, [facility] 17:15:19 Steriliz ation procedur e Completed 201707/29/2021 Encounte r for steriliz ation;Pr actice ID: 0001 Kari Reinaldo sumner [facility] 17:16:36 Procedur e on genitour inary system Completed 201707/29/2021 Encounte r for surgical aftcr followin g surgery on the sys;Prac julian ID: 0001 Kari Reinaldo sumner [facility] 17:16:20 Postoper ative care Completed 201707/29/2021 Encounte r for surgical aftcr followin g surgery on the sys;Prac julian ID: 0001 Kari Najera taisha [facility] 17:16:15 Urinary tract infectio us disease 16450345 Completed 201807/29/2021 Urinary tract infectio n, site not specifie d;Practi ce ID: 0001 Kari Najera taisha [facility] 17:16:[address] Concept Completed 201807/29/2021 Encntr for rn gyn exam (general ) (routine ) w/o abn findings ;Practic e ID: 0001 Kari sumner [facility] 17:16:32 Screenin g for malignan t neoplasm of rectum Completed 201807/29/2021 Encounte r for screenin g for malignan t neoplasm of rectum;P [facility] ID: [facility] 17:16:28 Evaluati on finding Completed 201807/29/2021 Hematuri a, unspecif ied;Toni rded Elsewher e: No Locat ion: [facility] S ource: EHR Rn Hemo Dialysis luz: N Practi ce ID: 0001 Petr lable Time: 08:15:[address] [facility] 17:15:14 Problem Notes None recorded. Procedures Surgical History Date Name Laterality Status Provider Name and Address Organization Details Recorded Time 07/30/20 21 Date of Last Pap Smear completed Kariblas Najera [facility] 07/30/2021 09:55:09 07/30/20 18 [facility] 07/29/2021 17:34:29 02/29/20 18 endometrial biopsy completed [facility] 07/29/2021 17:33:40 08/15/20 12 Breast Biopsy completed [facility] 07/29/2021 17:32:59 12/30/19 03 [facility]2021 17:34:42 11/29/19 02 Colposcopy completed [facility] 07/29/2021 17:20:03 Imaging Results None recorded. Procedure Notes None recorded. Medical Equipment None Reported. Allergies Allergen ID Allergen Name Allergen Category Reaction Reaction Severity Criticality Documentation Date Start Date Code Code System Note Provider Name and Address Organization Details Recorded Time 10032 ketorolac medicatio n Not available Not available Not available 07/30/2021 67894 RxNorm Kari sumner [facility] 09:54:01 Medications Name Sig Start [...] Prescrib ed Elsewher e: Yes Loca tion: [facility] odify By: efraín gee DateTime : 10/29/20 11 03:30:00 PM Not Available Not Available Not Available doxycycli ne hyclate 50 mg capsule take 1 capsule by oral route every 12 hours 02/07 completed Prescrib ed Elsewher e: Yes Loca tion: [facility] odify By: mike Alvarez ncounter DateTime : 04/13/20 16 01:00:00 PM Not Available Not Available Not Available Pyridium 200 mg tablet take 1 tablet by oral route 3 times every day after meals 07/30 completed Prescrib ed Elsewher e: No Locat ion: [facility] odify By: carmen tz Encou nter DateTime [...] Elsewher e: No Locat ion: [facility] odify By: mike armendariz DateTime : 12/17/19 17 02:43:41 PM Not Available Not Available Not Available Soma 350 mg tablet take 1 tablet by oral route 3 times every day and at bedtime 04/13 completed Prescrib ed Elsewher e: No Locat ion: [facility] odify By: daryl delgado DateTime : 12/26/19 [...] Elsewher e: No Locat ion: [facility] odify By: andrew armendariz DateTime : 02/14/20 19 09:38:29 AM Not Available Not Available Not Available nystatin 100,000 unit/gram topical cream 02/16 completed Not Available Not Available Not Available Synthroid 88 mcg tablet take 1 tablet by oral route every day 04/13 completed Prescrib ed Elsewher e: Yes Loca tion: [facility] odify By: daryl delgado DateTime : 09/20/20 14 02:00:00 PM Not Available Not Available Not Available Synthroid 50 mcg tablet take 1 tablet by oral route every day 02/16 completed Prescrib ed Elsewher e: Yes Loca tion: [facility] odify By: mike armendariz DateTime : 04/20/20 16 03:15:00 PM Not Available Not Available Not Available Adipex-P 37.5 mg capsule take 1 capsule by oral route every day before breakfas t 09/20 completed Prescrib ed Elsewher e: Yes Loca tion: [facility] odify By: efraín gee DateTime : 03/15/20 14 04:30:00 PM Not Available Not Available Not Available Vitamin D2 1,250 mcg (50,000 unit) capsule take 1 capsule (72097RK ITS) by oral route every week 03/15 completed Prescrib ed Elsewher e: No Locat ion: [facility] odify By: isabel armendariz DateTime : 08/31/20 [...] Elsewher e: No Locat ion: [facility] odify By: andrew armendariz DateTime : 02/10/20 19 08:15:00 AM Not Available Not Available Not Available Wellbutri n XL 300 mg 24 hr tablet, extended release take 1 tablet by oral route every day 02/07 completed Prescrib ed Elsewher e: No Locat ion: [facility] odify By: mike armendariz DateTime : 12/14/19 [...] Prescrib ed Elsewher e: No [facility]: mike armendariz DateTime : 02/08/20 18 01:45:00 PM Not Available Not Available Not Available Lo Loestrin Fe 1 mg-10 mcg (24)/10 mcg (2) tablet take 1 tablet by oral route every day 01/04 completed Prescrib ed Elsewher e: No Locat ion: [facility] odify By: timurl E ncounter DateTime : [...] Updated DateTime 02/17/2024 160.02 cm 45.5 kg/m2 640191.24 g 136/91 mm[Hg] Sabi Abelino [facility] 02/17/2024 10:12:21 Date Recorded Body height Body mass index (BMI) Body weight Systolic And Diastolic Provider Name and Address Organization Details Last Updated DateTime 07/30/2021 161.93 cm 46.7 kg/m2 100101.94 g 127/84 mm[Hg] Kari Najera [facility] 07/30/2021 09:53:20 Social History Question Answer Notes LastModified by Organizat ion Details LastModified Time Tobacco Smoking Status Never Smoker Kari Najera [facility] 07/30/2021 09:56:22 If You Are , What Was Your Level Of Alcohol Consumption Prior To ? None [email or web address] Information not available 07/30/2021 Are You Blind Or Do You Have Difficulty Seeing? No [email or web address] Information n ot available 07/30/2021 What Is Your Level Of Caffeine Consumption? Occasional [email or web address] Information not available 07/30/2021 In The 14 Days Before Symptom Onset, Have You Had Close Contact With A Laboratory-confirm ed COVID-19 While That Case Was Ill? No [email or web address] Information n ot available 07/30/2021 In The 14 Days Before Symptom Onset, Have You Had Close Contact With A Person Who Is Under Investigation For COVID-19 While That Person Was Ill? No [email or web address] Information not available 07/30/2021 Have You Been To An Area Known To Be High Risk For COVID-19? No Information not available 07/30/2021 Are You Deaf Or Do You Have Serious Difficulty Hearing? No [email or web address] Information not available 07/30/2021 What Type Of Diet Are You Following? REGULAR [email or web address] Information n ot available 07/30/2021 Do You Use Your Seat Belt Or Car Seat Routinely? Yes [email or web address] Information not available 07/30/2021 Do You Have Smoke And Carbon Monoxide Detectors In Your Home? Yes [email or web address] Information not available 07/30/2021 Do You Use Sunscreen Routinely? Yes [email or web address] Information not available 07/30/2021 Has Tobacco Cessation Counseling Been Provided? No [email or web address] Information not available 07/30/2021 Sex: Unknown Functional Status Question Answer Note LastModified by Organizat ion Details LastModified Time Do you use any illicit or recreational drugs? No [email or web address] Information not available 07/30/2021 Do you or have you ever used any other forms of tobacco or nicotine? No [email or web address] Information not available 07/30/2021 What is your level of alcohol consumption? Occasional [email or web address] Information not available 07/30/2021 Are you able to walk? YESWOREST [email or web address] Information not available 07/30/2021 What is your exercise level? Occasional [email or web address] Information not available 07/30/2021 Mental Status Question Answer Note LastModified by Organization D etails LastModified Time Do you feel stressed (tense, restless, nervous, or anxious, or unable to sleep at night)? [id number] Information not available 07/30/2021 Family History Relationship Description Onset Age of this Age Resolved Age Notes LastModified by Organization Details LastModified Time Maternal Aunt Malignant tumor of colon [email or web address] Not available 07/29 17:29:59 Maternal Aunt Heart disease [email or web address] Not available 07/29 17:30:47 Paternal Grandmother Malignant tumor of breast [email or web address] Not available 07/29 17:30:21 Maternal Grandmother Malignant tumor of breast [email or web address] Not available 07/29 17:30:21 Maternal Grandmother Malignant neoplasm of liver [email or web address] Not available 07/29 17:32:14 Mother Heart disease [email or web address] Not available 07/29 17:30:47 Mother Hypertensive disorder [email or web address] Not available 07/29 17:31:17 Maternal Uncle Heart disease [email or web address] Not available 07/29 17:30:47 Sister Hypertensive disorder Not available 07/29 17:31:17 Sister Diabetes mellitus [email or web address] Not available 07/29 17:31:31 Father Diabetes mellitus [email or web address] Not available 07/29 17:31:42 Father Hypertensive disorder [...] SNOMED-CT Code Diagnosis ICD10 Code Diagnosis Note [id number] Solange Ye CNM [place] [address] [address] 07/30/2021 09:41:09 07/30/2021 15:54:38 Gynecologic examination 65090819 Z01.419 Dyspareunia 47997401 N94 .10 f/u pending [id number] Austen Macario MD [place] [address] [address] 08/01/2021 16:05:54 08/01/2021 16:54:26 Dyspareunia 45688120 N94.10 [id number] ALCIDES Isaac [place] [address] [address] 02/17/2024 10:04:57 02/17/2024 10:41:21 Gynecologic examination 15577351 Z01.419 WWEBC - BTLpap updateddec lined STI screenmamm ogram order givencolon oscopy UTDroutine labs/PCPge netic testing discussed/ fam hx reviewedBP precaution s reviewedRT C in 1 yr or sooner if needed Suggested Calcium with Vitamin D daily. Patient advised to get an annual flu shot in the fall and she could obtain at [facility] or [facility] care clinic. Also to obtain TDap [...] email. Screening for malignant neoplasm of breast 367078177 Z12.39 Health Concerns Section Related Observation LastModified by Organization Detai ls LastModified Time None Recorded Concern Status LastModified by Organization Details LastModified Time None Recorded Advance Directives Directive None Recorded Payers Insurance Date Sequence Insurance Name Policy Number Policy Castro Covered Member ID Castro Member ID Guarantor Name 02/16/2024 1 [employer] - DOS PRIOR TO 21 - [facility] BENEFITS PLAN [id number] Austin Mckeon [id number] OI Austin Dong 02/17/2024 1 [employer] - [facility] BENEFITS PLAN [id number] Austin Dong [id number] OI Austin Dong Notes Date Note Type [...] again Solange Ye, [address], [place], [address], [facility] 07/30/2021 10:58:55 02/17/2024 text/html Annual GYNReport [...] to repeat ALCIDES Isaac [address], [place], [address], [facility] 02/17/2024 10:36:51 OBGyn Episode Ob Episode Information Episode Created Date Number of Fetuses Patient Bloodtype Patient rh Status Prepregnancy Weight lbs Domestic Partner Domestic Partner Phone Father Name Technical Training Coordinator Status 07/29/20 21 1 CLOSED Fetus Data First Name Last Name Admitted to NICU Weight (g) Sex Living Outcome Pediatric Complications Fetus ID Race Codes Race Delivery Type , Induced 39296 Solomon Calculation Initial Solomon Date Initial Exam [...] Domestic Partner Domestic Partner Phone Father Name Technical Training Coordinator Status 07/29/20 21 1 CLOSED Fetus Data First Name Last Name Admitted to NICU Weight (g) Sex Living Outcome Pediatric Complications Fetus ID Race Codes Race Delivery Type 3373.36 3704 F Full Term 27881 Vaginal Delivery Solomon Calculation Initial Solomon Date [...] Domestic Partner Domestic Partner Phone Father Name Technical Training Coordinator Status 07/29/20 21 1 CLOSED Fetus Data First Name Last Name Admitted to NICU Weight (g) Sex Living Outcome Pediatric Complications Fetus ID Race Codes Race Delivery Type 3770.25 6704 M Full Term 37949 Vaginal Delivery Solomon Calculation Initial Solomon Date [...] Domestic Partner Domestic Partner Phone Father Name Technical Training Coordinator Status 07/29/20 21 1 CLOSED Fetus Data First Name Last Name Admitted to NICU Weight (g) Sex Living Outcome Pediatric Complications Fetus ID Race Codes Race Delivery Type , Spontane ous 51421 Solomon Calculation Initial Solomon Date Initial Exam [...] Domestic Partner Domestic Partner Phone Father Name Technical Training Coordinator Status 07/29/20 21 1 CLOSED Fetus Data First Name Last Name Admitted to NICU Weight (g) Sex Living Outcome Pediatric Complications Fetus ID Race Codes Race Delivery Type 4110.45 0704 M Full Term 48995 Vaginal Delivery Solomon Calculation Initial Solomon Date [...] Domestic Partner Domestic Partner Phone Father Name Technical Training Coordinator Status 07/29/20 21 1 CLOSED Fetus Data First Name Last Name Admitted to NICU Weight (g) Sex Living Outcome Pediatric Complications Fetus ID Race Codes Race Delivery Type , Spontane ous 70036 Solomon Calculation Initial Solomon Date Initial Exam [...]
== END 2025-06-19 13:57 | disposition home or self-care (01) ==
PROVIDERS: PCP Family Medicine; Visit Provider Surgery
DX: C50.912 Malignant neoplasm of unspecified site of left female breast (principal); Z17.31 Human epidermal growth factor receptor 2 positive status
CPT/HCPCS: 77049; A9577; C8908

== ENCOUNTER 2025-07-09 08:44 | Outpatient (CLI) | payer OTHER, SELFPAY ==
--- OUTSIDE RECORDS SUMMARY | 2025-07-09 08:52 | XMS_ITS | Clinical Summary ---
[facility] Address [address] [place] [address] Care Team Providers Care Drilling Machine Runner Name Role Phone Trey Shen MD Primary Care Provider [phone] Allergies Active Allergy Reactions Criticality Noted Date [...] Encounters Date Type Department Care Team Description 07/03/2025 External Device Data STL ABSTRACTION Provider, Abstract 07/02/2025 Orders Only [facility] Oncology [facility] H[facility]ology [facility] [address] [place] [id number] Neal Mena MD Malignant neoplasm of upper-outer quadrant of left breast in female, estrogen receptor positive (CMS/HCC) 06/22/2025 Telephone [facility] H[facility]ology [facility] [address] [phone] Neal Mena MD Loss of blood 06/22/2025 Telephone [facility] Oncology [facility] Hematology [facility] [address] [place] [id number] Neal Mena MD Loss of blood 06/21/2025 Orders Only [facility] Oncology [facility] Hematology [facility] [address] [place] [address] Neal Mena MD 06/18/2025 Orders Only [facility] Oncology [facility] Hematology [facility] [address] [place] [id number] Neal Mena MD Malignant neoplasm of upper-outer quadrant of left breast in female, estrogen receptor positive (CMS/HCC) 06/15/2025 Telephone [facility] Oncology [facility] Hematology [facility] [address] [place] [address] Neal Mena MD Blood in stool 06/13/2025 9:00 AM CDT Office Visit [facility] On[facility]ology [facility] [address] [place] [address] Neal Mena MD Malignant neoplasm of upper-outer quadrant of left breast in female, estrogen receptor positive (CMS/HCC) (Primary Dx) 06/13/2025 External Device Data STL ABSTRACTION Provider, Abstract 06/13/2025 External Device Data STL ABSTRACTION Provider, Abstract 06/13/2025 Orders Only [facility] Oncology and Hematology - [place] [address] Neal Mena MD 06/04/2025 Orders Only [facility] - [place] [address] [place] [id number] Neal Mena MD Malignant neoplasm of upper-outer quadrant of left breast in female, estrogen receptor positive (CMS/HCC) 05/28/2025 Orders Only [facility] H[facility]ology - [place] [address] [place] [phone] Neal Mena MD 05/24/2025 Orders Only [facility]ology - [place] [address] [place] [id number] Neal Mena MD 05/23/2025 9:30 AM CDT Office Visit [facility] Hematology - [place] [address] [place] [address] Neal Mena MD Malignant neoplasm of upper-outer quadrant of left breast in female, estrogen receptor positive (CMS/HCC) (Primary Dx) 05/21/2025 Orders Only [facility] On[facility] and Hematology - [place] [address] [place] [id number] Neal Mena MD Malignant neoplasm of upper-outer quadrant of left breast in female, estrogen receptor positive (CMS/HCC) 05/16/2025 External Device Data STL ABSTRACTION Provider, Abstract 05/11/2025 Orders Only [facility] Hematology - [place] [address] [place] [address] Neal Mena MD 05/10/2025 Orders Only [facility]ology - [place] [address] [place] [address] Neal Mena MD 05/10/2025 Telephone [facility] - [place] [address] [place] [address] Neal Mena MD Lab Results 05/10/2025 Telephone [facility] - [place] [address] [place] [address] Neal Mena MD Dizziness 05/07/2025 Orders Only [facility] - [place] [address] [place] [address] Neal Mena MD Malignant neoplasm of upper-outer quadrant of left breast in female, estrogen receptor positive (CMS/HCC) 05/02/2025 9:00 AM CDT Office Visit [facility] On[facility] Hematology - [place] [address] [place] [address] Neal Mena MD Malignant neoplasm of upper-outer quadrant of left breast in female, estrogen receptor positive (CMS/HCC) (Primary Dx) 05/02/2025 Abstract [facility]ology - [place] [address] [place] [address] Neal Mena MD 05/02/2025 Orders Only [facility]ology - [place] [address] [place] [address] Neal Mena MD 05/01/2025 External Device Data STL ABSTRACTION Provider, Abstract 05/01/2025 Telephone [facility]ology - [place] [address] [place] [address] Neal Mena MD Upper Respiratory Symptoms 04/23/2025 Orders Only [facility] - [place] [address] [place] [address] Neal Mena MD Malignant neoplasm of upper-outer quadrant of left breast in female, estrogen receptor positive (CMS/HCC) 04/19/2025 External Device Data STL ABSTRACTION Provider, Abstract 04/19/2025 External Device Data STL ABSTRACTION Provider, Abstract 04/18/2025 External Device Data STL ABSTRACTION Provider, Abstract 04/18/2025 Telephone [facility] - [place] [address] [place] [address] Results 04/12/2025 Orders Only [facility] - [place] [address] [place] [phone] Neal Mena MD 04/09/2025 Telephone [facility] H[facility]ology - [place] [address] [place] [phone] Neal Mena MD Mdication Questions 04/09/2025 Orders Only [facility]ology - [place] [address] [place] [phone] Neal Mena MD Malignant neoplasm of upper-outer quadrant of left breast in female, estrogen receptor positive (CMS/HCC) from Last 3 Months Family History Medical [...] on file Legal Sex Female 5:43 AM TEXTILE CHEMIST Gender Identity Not on file Sexual Orientation [...] 162.6 cm (5' 4) 02/02/2025 1:46 PM TEXTILE CHEMIST Body Mass Index 40.89 02/02/2025 1:46 PM TEXTILE CHEMIST Plan of Treatment Upcoming Encounters Date Type Department Care Team (Late st Contact Info) Description 07/25/2025 9:00 AM CDT Office Visit [facility] Oncology and Hematology - [place] [address] [facility] [address] [place] [address] Neal Mena MD [address] [facility] [address] [place] [address] Health Maintenance Due Date Last [...] Priority Date/Time Associated Diagnosis Comments CBC WITH AUTODIFFERENTIAL Routine 2024 1:26 PM CDT BASIC METABOLIC PANEL Routine 06/13/2025 1:41 PM [...] METABOLIC PANEL Routine 04/11/2025 11:03 AM CDT from Last 3 Months Results * CBC WITH AUTODIFFERENTIAL (06/20/2025 1:26 PM CDT) Only the most recent of2 resultswithin the time period is included. Blood us Neal Mena MD HEMATOLOGY ORDERABLES Final Res ult * BASIC METABOLIC PANEL (06/13/2025 1:41 PM CDT) Only the most recent of5 resultswithin the time period is included. Blood us Neal Mena MD CHEMISTRY ORDERABLES Final Resu lt * COMPREHENSIVE METABOLIC PANEL (06/13/2025 1:25 PM CDT) Only the most recent of2 resultswithin the time period is included. Blood us Neal Mena MD CHEMISTRY ORDERABLES Final Resu lt * CBC WITH DIFFERENTIAL (05/17/2025 3:54 PM CDT) Only the most recent of2 resultswithin the time period is included. Blood Result Pierre Mena MD HEMATOLOGY ORDERABLES Final Res ult * CHG CA 15 3 (05/02/2025 1:56 PM CDT) us Neal Mena MD [facility] - LABORATORY Final Result from Last 3 Months Insurance [facility] [employer] Care Teams Drilling Machine Runner Relationship Specialty Start Date End Date Trey Shen MD [address] [facility] [address] [facility] [address] [place] [address] PCP - General Family Practice 05/02/25
--- OUTSIDE RECORDS SUMMARY | 2025-07-09 08:52 | XMS_ITS | Clinical Summary ---
Author Organization [facility] Physician Office Building [address] [place] [address] Care Team Providers Care House Visitor Name Role Phone Trey Shen MD Primary [...] 12/05/2024 Assessment & Plan (12/05/2024 3:05 PM FELLER BUNCHER OPERATOR): I counseled the patient on exercise: [...] 12/05/2024 Assessment & Plan (12/05/2024 3:57 PM FELLER BUNCHER OPERATOR): Patient's highest BMI was 48.6 ; initial BMI was 46.8; this has improved to 41.07 through medical management Vitamin D deficiency 09/12/2024 Assessment & Plan (12/05/2024 3:06 PM FELLER BUNCHER OPERATOR): Continue vitamin-D supplementation Assessment & Plan (09/12/2024 4:10 PM CDT): start vitamin-D replacement 5,000IU daily Encounter for weight loss counseling 07/11/2024 Assessment & Plan (12/05/2024 3:05 PM FELLER BUNCHER OPERATOR): Reviewed importance of adequate protein intake. [...] 07/11/2024 Assessment & Plan (12/05/2024 3:05 PM FELLER BUNCHER OPERATOR): Obesity is one of the leading [...] 03/21/2018 Assessment & Plan (12/05/2024 4:18 PM FELLER BUNCHER OPERATOR): Reviewed most recent labs. Continue low [...] 03/21/2018 Assessment & Plan (12/05/2024 3:05 PM FELLER BUNCHER OPERATOR): Continue current dose of levothyroxine. Assessment [...] on file Legal Sex Female 7:08 PM FELLER BUNCHER OPERATOR Gender Identity Not on file Sexual [...] (239 lb 6.4 oz) 12/05/2024 3:55 PM FELLER BUNCHER OPERATOR Height 162.6 cm (5' 4.02) 12/05/2024 3:55 PM CS T Body Mass Index 41.07 12/05/2024 3:55 PM FELLER BUNCHER OPERATOR Plan of Treatment Health Maintenance Due Date Last Done Comments Breast Cancer Screening-Mammogram 1978 Cervical Cancer Screening 1978 Colon Cancer Screening-Colonoscopy 1978 Hepatitis C Screening 1978 DTaP/Tdap/Td Vaccine (1 - Tdap) 1989 Hepatitis B Screening 02/05/1996 Regular Well Visit/Exam 18-64 02/05/1996 Depression Screening 03/21/2019 03/21/2018 Covid-19 Vaccine (2 - 2023-2 5 season) 2024 03/07/2021 Influenza Vaccine (#1) 2025 Pneumococcal vaccine <65 Aged Out No longer eligible based on patient's age to complete this topic Insurance [facility] [id number] Care Teams House Visitor Relationship Specialty Start Date End Date Trey Shen MD [address] [place] [address] PCP - General Family Medicine 03/10/18
--- OUTSIDE RECORDS SUMMARY | 2025-07-09 08:52 | XMS_ITS | Encounter Summary ---
Author Organization [facility] Address [address] [place] [address] Care Team Providers Care Top Precipitator Operator Helper Name Role Phone Trey Shen MD Primary Care Provider [phone] Encounter Details Date Type Department Care Team (Late st Contact Info) Description 03/15/2009 Emergency [facility] [place], Authorized P NO ADDRESS ON FILE Juan Carranza MD [address] [place] [phone] Social History Tobacco Use Types Packs/Day Years Used Date Smoking Tobacco: Never Assessed Comments Unknown Sex and Gender Information Value Date Recorded Sex Assigned at Not on file Legal Sex Female 5:43 AM FACILITIES ADMINISTRATOR Gender Identity Not on file Sexual Orientation Not on file documented as of this encounter Plan of Treatment Upcoming Encounters Date Type Department Care Team (Late st Contact Info) Description 07/25/2025 9:00 AM CDT Office Visit [facility] Oncology and Hematology - [place] [address] [facility] [address] [place] [address] Neal Mena MD [address] [facility] [address] [place] [address] documented as of this encounter Procedures Procedure Name Priority Date/Time Associated Diagnosis Comments CBC WITH DIFFERENTIAL Stat 03/15/2009 10:24 PM CDT C-REACTIVE PROTEIN Stat 03/15/2009 10 :24 PM CDT COMPREHENSIVE METABOLIC PANEL Stat 03/15/2009 10:24 PM CDT documented in this encounter Results * C-REACTIVE PROTEIN (03/15/2009 10:24 PM CDT) CRP 0.7 0.0 - 0.8 mg/dL [facility] Blood specimen (specimen) 03/15/2009 10:24 PM CDT 03/15/2009 10:40 PM CDT us Juan Carranza MD CHEMISTRY ORDERABLES Final Resu lt INTERFACE SYSTEM Refer to clinic/hospital department [facility] CLIA# [id number] [address] [facility] [place] [place] [address] * (ABNORMAL) COMPREHENSIVE METABOLIC PANEL (03/15/2009 10:24 PM CDT) Pathologist [facility] CREATININE 0.60 0.51 - 0.95 mg/dL [facility] SODIUM 137 135 - 145 mmol/L [facility] ALT 12 0 - 31 U/L [facility] ALKALINE PHOSPHATASE 46 35 - 104 U/L [facility] BILIRUBIN TOTAL 0.5 0.2 - 1.0 mg/dL [facility] CO2 21(L) 22 - 30 mmol/L [facility] TOTAL PROTEIN 6.1(L) 6.3 - 8.6 g/dL [facility] POTASSIUM 3.1(L) 3.5 - 4.9 mmol/L [facility] GLUCOSE 111(H) 65 - 99 mg/dL [facility] AST 17 12 - 32 U/L [facility] BUN 6 6 - 20 mg/dL [facility] CALCIUM 8.5(L) 8.6 - 10.2 mg/dL [facility] CHLORIDE 107 96 - 108 mmol/L [facility] ALBUMIN 3.5 3.4 - 4.8 g/dL [facility] GFR, >60 >=60 mL/min/1. 7 sq meter [facility] GFR >60 >=60 mL/min/1. 7 sq meter [facility] Comment: Modification of Diet in Renal Disease (MDRD) study formula. Estimated GFR rate interpretative information for both Americans and non- Americans is available on the [facility] Intranet at: [email or web address] Select: Lab Policies and Procedures Select: Reference Ranges - GFR Blood specimen (specimen) 03/15/2009 10:24 PM CDT 03/15/2009 10:40 PM CDT Juan Carranza MD CHEMISTRY ORDERABLES Edited INTERFACE SYSTEM Refer to clinic/hospital department [facility] CLIA# [id number] [address] [place] [address] * (ABNORMAL) CBC WITH DIFFERENTIAL (03/15/2009 10:24 PM CDT) HEMOGLOBIN 10.4(L) 11.8 - 14.8 g/dL [facility] RDW 14.2 11.5 - 14.5 % [facility] WBC 10.7(H) 4.0 - 9.8 K/uL [facility] MCH 30.0 27.2 - 32.6 pg [facility] MPV 10.9 9.3 - 12.4 fL [facility] HEMATOCRIT 30.4(L) 35.5 - 44.0 % [facility] RDW-STDEV 44.5 37.1 - 48.7 fL [facility] RBC 3.47(L) 3.90 - 4.90 M/uL [facility] MCHC 34.2 31.5 - 35.5 % [facility] MCV 87.6 82.0 - 99.0 fL [facility] PLATELETS 229 140 - 350 K/uL [facility] LYMPHOCYTES 17 16 - 45 % [facility] LYMPHOCYTE ABSOLUTE 1.84 0.70 - 4.50 K/uL [facility] BASOPHILS 0 0 - 2 % [facility] BASOPHILS ABSOLUTE 0.01 0.00 - 0.20 K/uL [facility] MONOCYTES 7 3 - 13 % [facility] MONOCYTE ABSOLUTE 0.72 0.10 - 1.30 K/uL [facility] NEUTROPHILS 75(H) 45 - 70 % [facility] NEUTROPHIL ABSOLUTE 8.05(H) 1.90 - 7.00 K/uL [facility] EOSINOPHILS 1 0 - 7 % [facility] EOSINOPHIL ABSOLUTE 0.07 0.00 - 0.70 K/uL [facility] Blood specimen (specimen) 03/15/2009 10:24 PM CDT 03/15/2009 10:40 PM CDT us Juan Carranza MD HEMATOLOGY ORDERABLES Edited INTERFACE SYSTEM Refer to clinic/hospital department [facility] CLIA# [id number] [address] [place] [address] documented in this encounter Visit Diagnoses Not on filedocumented in this encounter Care Teams Top Precipitator Operator Helper Relationship Specialty Start Date End Date Trey Shen MD [address] [facility] [address] [place] [address] PCP - General Family Practice 6/4/25 documented as of this encounter
== END 2025-07-09 08:45 | disposition home or self-care (01) ==
LOC: ANHSURGERY 08:47
PROVIDERS: PCP Family Medicine; Visit Provider Surgery
DX: C50.912 Malignant neoplasm of unspecified site of left female breast (principal)
CPT/HCPCS: 36415; 86850; 86900; 86901

== ENCOUNTER 2025-07-18 03:37 | Day surgery (SDC) | payer OTHER, SELFPAY ==
[2025-07-05 14:44] VITALS: BMI 41.2
--- NOTE | 2025-07-05 14:46 | PC.NURSE ---
Report to the Outpatient Waiting Room, entrance under the green pavilion located off [facility], at time _0600_ on date _[id number]_. Planned Procedure Time: _0730_.? Time changes happen often and if your time is changed the preop area will call you the afternoon before. - You and your visitor will be asked to self-screen and do not enter if you have any COVID symptoms. Please call surgeon if you need to reschedule. - A mask is optional within the hospital at this time. - No food or drink from midnight until time of surgery and no smoking, or chewing tobacco (or any form of nicotine). No chewing gum, candy or mints. Take only the following medications with a SIP of water on the morning of surgery: __Sertraline and Levothyroxine DO NOT STOP ANY OF YOUR OTHER PRESCRIPTION MEDICATIONS PRIOR TO SURGERY EXCEPT THE FOLLOWING Hold all vitamins and supplements for 3 days per anesthesiologist. Medications to discontinue per physician Date to take last iydo__[id number]____ Please no make-up, nail kazakh, hairspray, perfume, deodorant, or body powder the day of surgery.? No jewelry (including any body piercings) or valuables the day of surgery, leave them at home.? Please take a shower or bath the night before, or the morning of, surgery with an antibacterial soap.? Wear comfortable, loose fitting clothing.? - Jewelry must be removed prior to entering the operating room.? Rings and piercings that are not removed may be cut off. - The hospital will not accept responsibility for valuables.? - Please leave all valuables, including medications, at home the day of surgery. If you are going home after surgery, a licensed driver's license examiner must drive you home.? - NO public transportation without another adult if you receive anesthesia. - We recommend that an adult stay with you for 24 hours following discharge. - We also recommend that you do not drive, make important decision, drink alcoholic beverages, or take any drugs that were not prescribed by your health care provider for at least 24 hours after your discharge time. Follow any additional instructions given to you from your surgeon. Telephone instructions given to __Austin__and asked if any additional questions and then verbalized understanding. Patient advised to call surgeon office or pre surgery nurse liaison [phone] if any additional questions.
[2025-07-18] VITALS (10 sets, daily range): BP systolic 103–147; BP diastolic 56–93; PULSE 68–92; RESP 11–20; TEMP 35.8–36.8; O2SAT 95–100
--- NOTE | ~2025-07-18 | MM_ITS ---
EXAMINATION: MM_FAXITRON_MG INDICATION: Status post lumpectomy TECHNIQUE: 2 specimen radiographs are submitted for review. COMPARISON: None available FINDINGS: Multiple microcalcifications are present in the specimen radiograph biopsy clip also present in the specimen.. IMPRESSION: Biopsy marker and microcalcifications are present in the lumpectomy specimen. Reviewed, dictated and finalized at [facility].
--- NOTE | ~2025-07-18 | NM_ITS ---
EXAMINATION: NM sentinel node inject only DATE: 07/18/2025 10:28 INDICATION: Left breast cancer TECHNIQUE: 1.042 mCi Tc-99m Lymphoseek was injected at the left breast by Dr. Arenas. Radiologist was not present for the injection. No images were obtained. IMPRESSION: 1. Left breast sentinel lymph node radiopharmaceutical injection without imaging. Reviewed, dictated and finalized at location A. IMPRESSION: 1. Left breast sentinel lymph node radiopharmaceutical injection without imagi ng.
--- OUTSIDE RECORDS SUMMARY | 2025-07-18 03:41 | XMS_ITS | Clinical Summary ---
Author Organization [facility] Physician Office Building [address] [place] [address] Care Team Providers Care Speech Language Assistant Name Role Phone Trey Shen MD Primary [...] 12/05/2024 Assessment & Plan (12/05/2024 3:05 PM PLATE WASHER): I counseled the patient on exercise: Recommend [...] 12/05/2024 Assessment & Plan (12/05/2024 3:57 PM PLATE WASHER): Patient's highest BMI was 48.6 ; initial BMI was 46.8; this has improved to 41.07 through medical management Vitamin D deficiency 09/12/2024 Assessment & Plan (12/05/2024 3:06 PM PLATE WASHER): Continue vitamin-D supplementation Assessment & Plan (09/12/2024 4:10 PM CDT): start vitamin-D replacement 5,000IU daily Encounter for weight loss counseling 07/11/2024 Assessment & Plan (12/05/2024 3:05 PM PLATE WASHER): Reviewed importance of adequate protein intake. Reviewed [...] 07/11/2024 Assessment & Plan (12/05/2024 3:05 PM PLATE WASHER): Obesity is one of the leading risk [...] 03/21/2018 Assessment & Plan (12/05/2024 4:18 PM PLATE WASHER): Reviewed most recent labs. Continue low carb, [...] 03/21/2018 Assessment & Plan (12/05/2024 3:05 PM PLATE WASHER): Continue current dose of levothyroxine. Assessment & [...] on file Legal Sex Female 7:08 PM PLATE WASHER Gender Identity Not on file Sexual Orientation [...] (239 lb 6.4 oz) 12/05/2024 3:55 PM PLATE WASHER Height 162.6 cm (5' 4.02) 12/05/2024 3:55 PM CS T Body Mass Index 41.07 12/05/2024 3:55 PM PLATE WASHER Plan of Treatment Health Maintenance Due Date [...] patient's age to complete this topic Insurance [facility] [id number] Care Teams Speech Language Assistant Relationship Specialty Start Date End Date Trey Shen MD [address] [place] [address] PCP - General Family Medicine 03/10/18
--- OUTSIDE RECORDS SUMMARY | 2025-07-18 03:41 | XMS_ITS | Clinical Summary ---
[facility] Address [address] [place] [address] Care Team Providers Care Drawing Kiln Operator Name Role Phone Trey Shen MD Primary Care Provider [phone] Allergies Active Allergy Reactions Criticality Noted Date [...] Encounters Date Type Department Care Team Description 07/16/2025 Orders Only [facility] Oncology and Hematology - [place] [address] [place] [phone] Neal Mena MD Malignant neoplasm of upper-outer quadrant of left breast in female, estrogen receptor positive (CMS/HCC) 07/03/2025 External Device Data STL ABSTRACTION Provider, Abstract 07/02/2025 Orders Only [facility] Oncology and Hematology - [place] [address] Neal Mena MD Malignant neoplasm of upper-outer quadrant of left breast in female, estrogen receptor positive (CMS/HCC) 06/22/2025 Telephone [facility] Oncology and Hematology - [place] [address] [place] [phone] Neal Mena MD Loss of blood 06/22/2025 Telephone [facility] Oncology and Hematology - [place] [address] [place] [id number] Neal Mena MD Loss of blood 06/21/2025 Orders Only [facility] Oncology and Hematology - [place] [address] [place] [address] Neal Mena MD 06/18/2025 Orders Only [facility] Oncology and Hematology - [place] [address] [place] [address] Neal Mena MD Malignant neoplasm of upper-outer quadrant of left breast in female, estrogen receptor positive (CMS/HCC) 06/15/2025 Telephone [facility] Oncology and Hematology - [place] [address] [place] [phone] Neal Mena MD Blood in stool 06/13/2025 9:00 AM CDT Office Visit [facility] Oncology and Hematology - [place] [address] [place] [phone] Neal Mena MD Malignant neoplasm of upper-outer quadrant of left breast in female, estrogen receptor positive (CMS/HCC) (Primary Dx) 06/13/2025 External Device Data STL ABSTRACTION Provider, Abstract 06/13/2025 External Device Data STL ABSTRACTION Provider, Abstract 06/13/2025 Orders Only [facility] Oncology and Hematology - [place] [address] [place] [address] Neal Mena MD 06/04/2025 Orders Only [facility] Oncology and Hematology - [place] [address] [place] [phone] Neal Mena MD Malignant neoplasm of upper-outer quadrant of left breast in female, estrogen receptor positive (CMS/HCC) 05/28/2025 Orders Only [facility] Oncology and Hematology - [place] [address] [place] [address] Neal Mena MD 05/24/2025 Orders Only [facility] Oncology and Hematology - [place] [address] [place] [address] Neal Mena MD 05/23/2025 9:30 AM CDT Office Visit [facility] Oncology and Hematology - [place] [address] [place] [phone] Neal Mena MD Malignant neoplasm of upper-outer quadrant of left breast in female, estrogen receptor positive (CMS/HCC) (Primary Dx) 05/21/2025 Orders Only [facility] Oncology and Hematology - [place] [address] [place] [address] Neal Mena MD Malignant neoplasm of upper-outer quadrant of left breast in female, estrogen receptor positive (CMS/HCC) 05/16/2025 External Device Data STL ABSTRACTION Provider, Abstract 05/11/2025 Orders Only [facility] Oncology and Hematology - [place] [address] [place] [address] Neal Mena MD 05/10/2025 Orders Only [facility] Oncology and Hematology - [place] [address] Neal Mena MD 05/10/2025 Telephone [facility] Oncology and Hematology - [place] [address] [place] [address] Neal Mena MD Lab Results 05/10/2025 Telephone [facility] Oncology and Hematology - [place] [address] [place] [address] Neal Mena MD Dizziness 05/07/2025 Orders Only [facility] Oncology and Hematology - [place] [address] [place] [phone] Neal Mena MD Malignant neoplasm of upper-outer quadrant of left breast in female, estrogen receptor positive (CMS/HCC) 05/02/2025 9:00 AM CDT Office Visit [facility] Oncology and Hematology - [place] [address] Neal Mena MD Malignant neoplasm of upper-outer quadrant of left breast in female, estrogen receptor positive (CMS/HCC) (Primary Dx) 05/02/2025 Abstract [facility] Oncology and Hematology - [place] [address] [place] [phone] Neal Mena MD 05/02/2025 Orders Only [facility] Oncology and Hematology - [place] [address] [place] [address] Neal Mena MD 05/01/2025 External Device Data STL ABSTRACTION Provider, Abstract 05/01/2025 Telephone [facility] Oncology and Hematology - [place] [address] [place] [address] Neal Mena MD Upper Respiratory Symptoms 04/23/2025 Orders Only [facility] Oncology and Hematology - [place] [place] [address] Neal Mena MD Malignant neoplasm of upper-outer quadrant of left breast in female, estrogen receptor positive (CMS/HCC) 04/19/2025 External Device Data STL ABSTRACTION Provider, Abstract 04/19/2025 External Device Data STL ABSTRACTION Provider, Abstract 04/18/2025 External Device Data STL ABSTRACTION Provider, Abstract 04/18/2025 Telephone [facility] Oncology and Hematology - [place] [address] [place] [address] Neal Mena MD CT Results from Last 3 Months Family History Medical [...] on file Legal Sex Female 5:43 AM DIRECTOR LAW ENFORCEMENT Gender Identity Not on file Sexual Orientation [...] 162.6 cm (5' 4) 02/02/2025 1:46 PM DIRECTOR LAW ENFORCEMENT Body Mass Index 40.89 02/02/2025 1:46 PM DIRECTOR LAW ENFORCEMENT Plan of Treatment Upcoming Encounters Date Type Department Care Team (Late st Contact Info) Description 07/25/2025 9:00 AM CDT Office Visit [facility] Oncology and Hematology - [place] [address] [facility] [address] [place] [address] Neal Mena MD [address] [facility] [address] [place] [address] Health Maintenance Due Date Last [...] WITH DIFFERENTIAL Routine 05/02/2025 1:45 PM CDT from Last 3 Months Results * CBC WITH AUTODIFFERENTIAL (06/20/2025 1:26 PM CDT) Only the most recent of2 resultswithin the time period is included. Blood us Neal Mena MD HEMATOLOGY ORDERABLES Final Res ult * BASIC METABOLIC PANEL (06/13/2025 1:41 PM CDT) Only the most recent of4 [...] the time period is included. Blood Result [facility] us Neal Mena MD HEMATOLOGY ORDERABLES Final Res ult * CHG CA 15 3 (05/02/2025 1:56 PM CDT) us Neal Mena MD CHG - LABORATORY Final Result from Last 3 Months Insurance [facility] [employer] Care Teams Drawing Kiln Operator Relationship Specialty Start Date End Date Trey Shen MD [address] [facility] [address] [place] [address] PCP - General Family Practice 05/02/25
--- OUTSIDE RECORDS SUMMARY | 2025-07-18 03:41 | XMS_ITS | Encounter Summary ---
Author Organization [facility] Address 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 Gender Identity Not on file Sexual Orientation Not on file documented as of this encounter Plan of Treatment Upcoming Encounters Date Type Department Care Team (Late st Contact Info) Description 07/25/2025 9:00 AM CDT Office Visit [facility] Oncology and Hematology - [place] [address] [facility] [address] [place] [address] Neal Mena MD [address] [facility] [address] [place] [address] documented as of this encounter Procedures Procedure Name Priority Date/Time Associated Diagnosis Comments CBC WITH DIFFERENTIAL Stat 03/15/2009 10:24 PM CDT C-REACTIVE PROTEIN Stat 03/15/2009 10 :24 PM CDT COMPREHENSIVE METABOLIC PANEL Stat 03/15/2009 10:24 PM CDT documented in this encounter Results * C-REACTIVE PROTEIN (03/15/2009 10:24 PM CDT) CRP 0.7 0.0 - 0.8 mg/dL [facility] Blood specimen (specimen) 03/15/2009 10:24 PM CDT 03/15/2009 10:40 PM CDT us Juan Carranza MD CHEMISTRY ORDERABLES Final Resu lt INTERFACE SYSTEM Refer to clinic/hospital department [facility] CLIA# [id number] [address] [facility] [place] [address] * (ABNORMAL) COMPREHENSIVE METABOLIC PANEL (03/15/2009 10:24 PM CDT) Pathologist [facility] CREATININE 0.60 0.51 - 0.95 mg/dL [facility] SODIUM 137 135 - 145 mmol/L [facility] ALT 12 0 - 31 U/L [facility] ALKALINE PHOSPHATASE 46 35 - 104 U/L [facility] BILIRUBIN TOTAL 0.5 0.2 - 1.0 mg/dL [facility] CO2 21(L) 22 - 30 mmol/L [facility] TOTAL PROTEIN 6.1(L) 6.3 - 8.6 g/dL [facility] POTASSIUM 3.1(L) 3.5 - 4.9 mmol/L [facility] GLUCOSE 111(H) 65 - 99 mg/dL [facility] AST 17 12 - 32 U/L [facility] BUN 6 6 - 20 mg/dL [facility] CALCIUM 8.5(L) 8.6 - 10.2 mg/dL [facility] CHLORIDE 107 96 - 108 mmol/L [facility] ALBUMIN 3.5 3.4 - 4.8 g/dL [facility] GFR, >60 >=60 mL/min/1. 7 sq meter [facility] GFR >60 >=60 mL/min/1. 7 sq meter [facility] Comment: Modification of Diet in Renal Disease (MDRD) study formula. Estimated GFR rate interpretative information for both Americans and non- Americans is available on the [facility] Intranet at: [email or web address] Select: Lab Policies and Procedures Select: Reference Ranges - GFR Blood specimen (specimen) 03/15/2009 10:24 PM CDT 03/15/2009 10:40 PM CDT Juan Carranza MD CHEMISTRY ORDERABLES Edited INTERFACE SYSTEM Refer to clinic/hospital department [facility] CLIA# [id number] [address] [place] [address] * (ABNORMAL) CBC WITH DIFFERENTIAL (03/15/2009 10:24 PM CDT) HEMOGLOBIN 10.4(L) 11.8 - 14.8 g/dL [facility] RDW 14.2 11.5 - 14.5 % [facility] WBC 10.7(H) 4.0 - 9.8 K/uL [facility] MCH 30.0 27.2 - 32.6 pg [facility] MPV 10.9 9.3 - 12.4 fL [facility] HEMATOCRIT 30.4(L) 35.5 - 44.0 % [facility] RDW-STDEV 44.5 37.1 - 48.7 fL [facility] RBC 3.47(L) 3.90 - 4.90 M/uL [facility] MCHC 34.2 31.5 - 35.5 % [facility] MCV 87.6 82.0 - 99.0 fL [facility] PLATELETS 229 140 - 350 K/uL [facility] LYMPHOCYTES 17 16 - 45 % [facility] LYMPHOCYTE ABSOLUTE 1.84 0.70 - 4.50 K/uL [facility] BASOPHILS 0 0 - 2 % [facility] BASOPHILS ABSOLUTE 0.01 0.00 - 0.20 K/uL [facility] MONOCYTES 7 3 - 13 % [facility] MONOCYTE ABSOLUTE 0.72 0.10 - 1.30 K/uL [facility] NEUTROPHILS 75(H) 45 - 70 % [facility] NEUTROPHIL ABSOLUTE 8.05(H) 1.90 - 7.00 K/uL [facility] EOSINOPHILS 1 0 - 7 % [facility] EOSINOPHIL ABSOLUTE 0.07 0.00 - 0.70 K/uL [facility] Blood specimen (specimen) 03/15/2009 10:24 PM CDT 03/15/2009 10:40 PM CDT us Juan Carranza MD HEMATOLOGY ORDERABLES Edited INTERFACE SYSTEM Refer to clinic/hospital department [facility] CLIA# [id number] [address] [place] [address] documented in this encounter Visit Diagnoses Not on filedocumented in this encounter Care Teams [employer] Team Member Relationship Specialty Start Date End Date Trey Shen MD [address] [facility] [address] [place] [address] PCP - General Family Practice 6/4/25 documented as of this encounter
[2025-07-18] MEDS: LIDOCAINE/PRILOCAINE CREAM 2.5-2.5% TUBE 1 EACH TOPICAL (06:30)
[2025-07-18] MEDS: ACETAMINOPHEN 500 MG TABLET 1000 MG PO (06:45)
[2025-07-18] MEDS: LACTATED RINGERS 1,000 ML 30 ML IV CONT ×3 (06:45→12:23)
--- NOTE | 2025-07-18 06:52 | P.HPUP_ITS ---
History and Physical Update Update Date/Time: 07/18/25 06:52 Patient seen and examined in pre-operative holding area. No interval change in medical history or symptoms. Patient remembers previous discussion of benefits and alternatives to procedure. Continues to desire to proceed with bilateral breast reconstruction with tissue clinical reimbursement specialist and alloderm placement and mastopexy at time of bilateral nipple-sparing mastectomy. I reviewed the risks including but not limited to bleeding ,infection, asymmetry, undesireable cosmetic appearance, partial/total skin/nipple loss, no change or worsening of symptoms, change in sensation, device failure, capsular contracture. I discussed the possible use of assistants and their level of participation in the case. Patient stated understanding and signed the consent form wishing to proceed
--- NOTE | 2025-07-18 06:53 | P.OP_ITS ---
Procedure Note - Detailed Date of Procedure 07/18/25 Pre-op Diagnosis malignant neoplasm left breast Post-op Diagnosis Same (acquired absence bilateral breasts) Procedure Performed b/l breast recon with TE and ADM and mastopexy at time of mastectomy Surgeon Loyda Arnett MD Lye Peel Operator wilfredo martínez pa-c Anesthesia General Description of Procedure Patient was seen in the preoperative holding area where the consent form was signed in the breast were marked for an inferior pedicle Mark pattern reduction. Patient was taken back to the operating room and placed on the table in the supine position. Time-out was performed with Anesthesia, surgeons, and staff agreeing on patient's name, site, and surgery to be performed. The SCDs were placed on the lower extremities and inflated. Antibiotics were given IV. After general anesthesia was administered the breasts were prepped and draped in usual sterile fashion. I took my attention 1st to the left breast were raised a saline moistened lap pad and Olga clamp to create a breast tourniquet. 38 mm nipple Sizer was used to circumscribe the nipple-areolar complex. Proceeded with de epithelializing a 15 cm wide inferior pedicle. I made my other skin incisions through skin and dermis a 15 blade scalpel. I then proceeded with assisting Dr. Yuan performing the left nipple sparing mastectomy and sentinel lymph node biopsy is indicated. this is dictated separately. After this was completed I irrigated with antibiotic irrigation and hemostasis with Bovie cautery. I proceeded with suturing in a piece of large, contoured, perforated AlloDerm along the inframammary fold and anterior axillary line with 2-0 Vicryl suture. A 10 Portuguese MAYLIN was placed along the inferior mammary fold between the AlloDerm and inferior pedicle. An on Q pump catheter was placed along the superior aspect of this cavity as well. I proceeded with prepping skin with Betadine and placing down fresh towels. I changed my gloves and rinsed instruments and antibiotic irrigation. I proceeded with taking a Natrelle 133 S-MX -13-T legger press operator serial [id number] and removed the air and prepped the legger press operator. The legger press operator was rinsed in antibiotic irrigation and then I used the applied tabs to suture it into appropriate position in the left breast pocket with 2-0 Vicryl suture. The legger press operator was then covered with AlloDerm. 2-0 Prolene was used to secure the T- junction after a 2nd round of antibiotic irrigation. 3-0 Vicryl was used for dermis. The nipple was brought out 5 cm above the inframammary fold at the most prominent portion of the breast at the breast midline and secured with 3-0 Vicryl suture. 4-0 Monocryl was used for subcuticular closure. the nipple appeared viable with good cap refill. I proceeded with 100 cc initial expansion which did not seem to be applying undue stress to the viable skin flaps or nipple. The drain was hooked to bulb suction. 10 cc of 1% lidocaine with epinephrine and 0.5% Marcaine plain were injected through the on Q pump catheter for initial loading bolus dose. After changing gloves and instruments we took our attention to the right side where similar procedure was performed. I used the saline moistened lap pad and Olga clamp to create a breast tourniquet. 38 mm nipple Sizer was used to circumscribe the nipple-areolar complex. I de-epithelialized a 15 cm wide inferior pedicle and made other skin incisions scalpel and Bovie. Dr. Yuan then proceeded with performing the right nipple sparing mastectomy with my assistance as indicated and this is dictated separately. After this was completed I irrigated with antibiotic irrigation and hemostasis with Bovie cautery. I proceeded with suturing and another piece of large, contoured, perforated AlloDerm along the inframammary fold and anterior axillary line with 2-0 Vicryl suture. Ten Portuguese drain was placed along the inframammary fold an on Q pump catheter was placed along the superior margin. I proceeded with taking another Natrelle tissue legger press operator 133 S-MX - 13-T serial [id number] from the package after rinsing it in antibiotic irrigation and prepping it appropriately as well as prepping skin with Betadine placing down new towels in changing gloves. This legger press operator was sutured using the provided tabs along the inframammary fold with 2-0 Vicryl suture in appropriate orientation. The legger press operator was covered with AlloDerm. 2-0 Prolene was used to secure the T- junction. 3-0 Vicryl was used for dermis. The nipple again was brought out 5 cm above the inframammary fold at the most prominent portion of the breast at the breast midline and secured with 3-0 Vicryl suture. The nipple appeared viable with good cap refill. 4-0 Monocryl was used for subcuticular closure. 100 cc of initial expansion was done for the right tissue legger press operator in standard fashion. There appeared to be reasonable symmetry and again noting the skin flaps and nipples appeared viable. The drain was hooked to bulb suction and I injected 10 cc of 1% lidocaine with epinephrine and 0.5% Marcaine plain along the on Q catheter for loading bolus dose. A dressing of Mastisol, Steri-Strips, 4 x 4, ABDs and surgical bra was then applied. The patient was awakened from anesthesia and transferred to the recovery room in stable condition. Complications: None estimated blood loss: 15 cc for my portion disposition: Patient tolerated the procedure well and will be staying for observation overnight Wilfredo Martínez PA-C was essential for positioning, retraction, closure and dressing placement G Billing Surgery - Charge Forward: Surgery Billing ([id number], [id number],59 [id number], 59 [id number],59 [id number], 59 [id number],59 [id number], 80,59 [id number],80,59. same codes for wilfredo removing 80 and adding )
--- NOTE | 2025-07-18 07:03 | WPDHPUPDATE1 ---
History and Physical Update Update Date/Time: 07/18/25 07:03 - Left nipple sparing mastectomy, prophylactic right nipple sparing mastectomy, left sentinel lymph node biopsy and immediate reconstruction with Plastic surgery. History and Physical has been reviewed, including an updated exam of the patient. There are NO changes in the patient's condition. Risks, benefits, and alternatives have been discussed and questions answered. Patient agrees to proceed with procedure.
--- NOTE | 2025-07-18 07:27 | WPDANESEPPF ---
Anes - Initial Pre Proc Eval Procedure: Operation Date: 07/18/25 07:30 Proposed Procedures p Left Nipple Sparing Mastectomy, Left [place] Lymph Node Biopsy, Possible Axillary Dissection with Injection of Lymphoseek and Methylene Blue, Prophylactic Right Nipple Sparing Mastectomy, - Traci Yuan MD s Bilateral Breast Reconstruction with Alloderm, Bilateral Tissue Sweep Molder, Bilateral Mark Pattern Mastopexy - Loyda Arnett MD Date/Time: 07/18/25 07:27 Surgeon: Traci Yuan MD Pre Op Diagnosis: malignant neoplasm left breast Patient Data Age: 45 Gender: F Height: 1.63 m Weight: 109 kg Allergies Allergy/AdvReac Type Severity Reaction Status Date / Time butorphanol Allergy Intermediate Palpitation Verified 07/18/25 06:05 s latex AdvReac Severe Hives Verified 07/18/25 06:05 egg AdvReac Intermediate Vomiting Verified 07/18/25 06:05 ketorolac AdvReac Intermediate Palpitation Verified 07/18/25 06:05 s Home Medications ?Medication ?Instructions ?Recorded ?Confirmed ?Type meclizine 25 mg tablet 25 mg PO TID PRN dizziness 10 days 09/11/24 07/05/25 Rx #30 tabs multivitamin (Daily Multi-Vitamin 1 tablet PO DAILY 01/25/25 07/05/25 History tablet) ondansetron HCl 8 mg tablet 8 mg PO Q8H PRN nausea and vomiting 03/24/25 07/05/25 History levothyroxine 137 mcg capsule 137 mcg PO DAILY #90 caps 07/02/25 07/05/25 Rx sertraline 50 mg tablet 50 mg PO DAILY #90 tabs 07/03/25 07/05/25 Rx vits 112-iron 3.33 2 tablet PO DAILY 07/05/25 07/05/25 History mg-folate 0.33 [id number] chew tablet (Vitafol Gummies) Patient hx anesthesia problems: none Family hx anesthesia problems: none Results Review: All pre-operative results and documents have been reviewed as part of the pre-operative evaluation. [facility] Past Medical History Medical History Morbid obesity Rosacea Anxiety Diarrhea Otitis media Depression Hypothyroidism, unspecified Migraine without aura and without status migrainosus, not intractable Surgical History Surgical History H/O breast biopsy Family History Family History Sibling Hypertension Patient's sister is in good health, Onset Age: 38 Patient's brother is in good health, Onset Age: 33 Family history of elevated blood lipids, Onset Age: 36 Diabetes mellitus Father Hypertension Family history of elevated blood lipids, Onset Age: 57 Family history of diabetes mellitus in first degree relative, Onset Age: 57 Diabetes mellitus Mother Family history of chronic obstructive pulmonary disease Family history of coronary artery disease, Onset Age: 54 Social History Social History Smoking status: Never smoker Second hand tobacco smoke exposure: No Alcohol intake: never Substance use: never Substance use type: does not use Do You Feel Safe in your Home?: Yes Lack of Transportation: No Lack of Food: Never True Current Housing: Decline to Answer Concerned About Future Housing: Decline to Answer Difficulty Paying Gas/Electric Bills: Decline to Answer Difficulty Paying for Meds: Decline to Answer Currently Unemployed: Decline to Answer Education: Decline to Answer Difficulty w/ Childcare or Family Care: Decline to Answer Living arrangements: with family Occupation/Education: occupation Gender identity (if verbalized by the patient): Female Sexual Orientation (if Verbalized by the Patient): Straight or Heterosexual Spiritual care concerns: No Anes - Eval Final PreProcedure Day of Procedure 07/18/25 07:27 Patient weight: morbidly obese Heart: regular rate and rhythm Lungs: clear to auscultation Airway: Mallampati scale class II Neurological: alert and oriented Last oral intake: >/= 8 hours ASA classification: III Emergent: no Anesthetic plan: proceed Anesthesia type and monitoring: general ETT and standard monitoring Results Review: All pre-operative results and documents have been reviewed as part of the pre-operative evaluation. Informed Consent: The patient's anesthetic plan and its attendant risks and benefits were discussed with the patient/family/POA. Questions were solicited and answers provided to the satisfaction of the patient/family/POA.
[2025-07-18] MEDS: SCOPOLAMINE 1 MG PATCH 1 PATCH TRANSDERM (07:34)
[2025-07-18] MEDS: ceFAZolin 2 GM in SODIUM CHLORIDE 0.9% IV 50 ML 100 ML IVPB (07:41)
[2025-07-18 07:43] LABS: BEDSIDEPREGUCG Negative (Negative)
--- NOTE | 2025-07-18 08:46 | SUR.OPER ---
Talked to Candace with radiology, she contacted Senait with [facility]. They stated they will manually work on this because their order is being cancelled also.
--- NOTE | 2025-07-18 08:52 | S_PTH ---
PATIENT: Austin Dong LOC: [facility] U#:[id number] AGE/SX: 45/F ROOM: RE07/18/[address]: Traci Yuan MD : 1980 BED: DIS: 07/19/2025 SPEC #: [id number] RECD: 07/18/25 09:57 STATUS: PADMA REQ #: [id number] ROMELIA: 07/18/25 08:[address]: Traci Yuan DEPT: [facility] Surgical RECD BY: Qing Beckwith ENTERED: 07/18/25 09:58 SP TYPE: Surgical OTHR DR: MD Trey Gibson MD Tissues: A - [place] LN Breast B - [place] LN Breast C - Breast Mastectomy D - [place] LN Breast E - Breast Mastectomy F - Breast Tissue G - Breast Tissue Procedures: Hematoxylin and Eosin Stain Gross and Microscopic Level 4 Gross and Microscopic Level 5 KATRINA-3 HMW Keratin
--- NOTE | 2025-07-18 09:05 | SUR.OPER ---
Left Axillary [place] Lymph Node Biopsy #1 sent fresh with PCT Izabel at 0884; received in pathology by Qing at 4467
--- NOTE | 2025-07-18 09:08 | SUR.OPER ---
Left Axillary [place] Lymph Node #2 sent fresh with PCT Izabel at 0860; received in pathology by Qing at 0585
[2025-07-18] MEDS: NACL 0.9% IRRIG POUR BOTTLE 1,000 ML, GENTAMICIN SULFATE INJ 160 MG, ceFAZolin 2 GM IRRIGATION (09:18)
[2025-07-18] MEDS: LIDO 1%/EPINEPHRINE 1:100,000 10 ML VIAL 30 ML INFILTRATE (09:23)
[2025-07-18] MEDS: METHYLENE BLUE 0.5% INJ 10 ML AMPULE XX (09:36)
--- NOTE | 2025-07-18 09:50 | SUR.OPER ---
Left Breast, Short Stitch Superior, Long Stitch Lateral sent fresh with Izabel at 0948; received in Pathology by Qing at 0971
--- NOTE | 2025-07-18 10:01 | SUR.OPER ---
Left [place] Lymph Node #3 sent to pathology fresh with PCT Izabel at 0984; received in pathology by Qing at 1001
--- NOTE | 2025-07-18 10:40 | P.OP_ITS ---
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 Left nipple sparing mastectomy 2. Prophylactic right nipple sparing mastectomy 3. Injection of Lymphoseek and methylene blue for dual tracing 4. Targeted axillary dissection with removal of clip node (previously biopsy positive lymph node prior to neoadjuvant chemotherapy) and 2 additional sentinel lymph nodes. Surgeon Traci Yuan MD Impregnating Machine Operator Carlyn Longoria PA-C Anesthesia General Description of Procedure Patient was identified in the preoperative holding area and I performed a inject ion of Lymphoseek and methylene blue to the periareolar area in the subdermal plane for dual tracing sentinel lymph node mapping. Patient was then brought to the operating room suite and laid supine in the OR table. Sequential compression devices were applied. General endotracheal anesthesia was induced without difficulty. Bilateral chest areas and left axilla were prepped and draped in a sterile fashion. Dr. Arnett made the Mark pattern incisions as well as the de epithelialization of the pedicle of the nipple areola complex, please refer to his operative note for further details. I did not proceed to elevate the mastectomy flaps. Dissection was carried down through the subcutaneous tissue through the thin areolar plane between the subcutaneous in the breast tissue superiorly to the inferior border of the clavicle. once I had fully elevated the superior mastectomy flap, the Neoprobe was then used to scan the axilla and the clavipectoral fascia was incised and opened. I was able to identify a node that was hot but not blue, and this was carefully excised. The sentinel lymph node initial count ex vivo was 38,290, and this was placed in the Faxitron to see if the clip was within the node. The Faxitron images confirmed that this was also the clipped node, and the original positive node that was biopsy prior to neoadjuvant chemotherapy. This node was then sent to pathology as a fresh specimen. The Neoprobe was then again used to scan the axilla and I was able to identify 2 additional lymph nodes that had at least 10% of the count of the original sentinel lymph node 1. Both additional nodes were excised using the LigaSure device and sent to pathology as a fresh specimen. I again scanned the axilla with the Neoprobe and no additional radio activity was noted at this time, that met the 10% criteria. The axillary region was irrigated with saline hemostasis was assured. Identified seed to continue my dissection on the mastectomy specimen medially to the lateral part of the sternal border, laterally to the latissimus dorsi, and inferior to the inframammary fold down to the muscle. The breast tissue along with the pectoralis fascia was then carefully dissected off the pectoralis muscle posteriorly. Once the entire breast was excised, it was also oriented with a short stitch superior and a long stitch lateral. The mastectomy specimen was then sent to pathology as a fresh specimen. Attention was then turned to the right prophylactic side. Dr. Alberts had already previously made the Mark pattern incisions as well as the de epithelialization of the pedicle for the nipple areola complex. I proceeded to dissect down through the subcutaneous tissue into the breast tissue. Dissection was then taking place in the thin areolar tissue between the subcutaneous in the breast tissue superiorly to the inferior border of the clavicle, medial to the lateral part of the sternal border, laterally to the latissimus dorsi, and inferior to the inframammary fold down to the muscle. The breast tissue along with the pectoralis fascia was then carefully dissected off the pectoralis muscle posteriorly. Once the entire breast was excised, it was oriented with a short stitch superior and a long stitch lateral as well as the subareolar region was marked with a short long stitch. The specimen was sent to pathology as a permanent specimen. The cavity was irrigated and hemostasis was assured. The case was then turned over to Dr. Arnett for the reconstruction part, please refer to his operative note for further details. All needles, instruments, and sponge counts were correct as reported by the operating room staff. Patient tolerated the procedure well with no immediate complications. Dr Arnett assisted with exposure and retraction during lymph node biopsy part as well as part of left mastectomy dissection. Carlyn Longoria PA-C was present and scrubbed for the entirety of procedure and required for retraction and patient positioning throughout the entire case. Estimated Blood Loss 80 Drains Yes Pathology Yes Complications No immediate complications Condition Stable Disposition PACU [facility] Billing Surgery - Charge Forward: Surgery Billing (CPT 00270 - L, [id number] - 59 R, 21460 - 59, [id number] - 59, [id number] - 59)
--- NOTE | 2025-07-18 11:21 | SUR.OPER ---
Additional left and right mastectomy skin given to Qing at 1121
[2025-07-18] MEDS: ONDANSETRON INJ 4 MG/2 ML VIAL IV PUSH (11:55)
[2025-07-18] MEDS: fentaNYL CITRATE INJ (*CRX) 100 MCG/2 ML VIAL 25 MCG IV PUSH ×3 (12:22→12:28)
--- NOTE | 2025-07-18 13:10 | PC.NURSE ---
This patient, Austin Dong, was received from PACU on 07/18/25 at 1310. Patient/family oriented to unit policies and routines
[2025-07-18] MEDS: LACTATED RINGERS 1,000 ML 100 ML IV CONT (13:45)
[2025-07-18] MEDS: HYDROmorphone HCL INJ (*CRX) 1 MG/ML SYR 0.5 MG IV PUSH ×2 (13:46→14:15)
[2025-07-18] MEDS: HYDROmorphone HCL INJ (*CRX) 1 MG/ML SYR IV PUSH ×2 (16:56→20:57)
[2025-07-18] MEDS: DOCUSATE SODIUM 100 MG CAPSULE PO (16:56)
[2025-07-18] MEDS: CEPHALEXIN 500 MG CAPSULE PO (20:30)
[2025-07-19] MEDS: HYDROmorphone HCL INJ (*CRX) 1 MG/ML SYR IV PUSH (02:21)
[2025-07-19 02:58] VITALS: BP 99/57; PULSE 80; RESP 20; TEMP 36.7; O2SAT 96
[2025-07-19] MEDS: LEVOTHYROXINE SODIUM 25 MCG TABLET PO (07:37)
[2025-07-19] MEDS: HYDROcodone/acetaminophen (*CRX) 7.5-325 MG TABLET 1 TAB PO (07:37)
[2025-07-19 07:50] VITALS: O2SAT 96
--- NOTE | 2025-07-19 07:50 | PM.DS ---
DS: Admitting Diagnosis Discharge Date 07/19/2025 Admitting Diagnosis Left breats cancer DS: Discharge Diagnosis Discharge Diagnosis (1) Invasive ductal carcinoma of left breast, stage 2: Code(s): C50.912 - Malignant neoplasm of unspecified site of left female breast Status: Acute (2) HER2-positive carcinoma of left breast: Code(s): C50.912 - Malignant neoplasm of unspecified site of left female breast; Z17.31 - Human epidermal growth factor receptor 2 positive status Status: Acute Plan - Follow up with Plastic Surgery next week - Follow up with Breast Surgery in 2 weeks DS: Summary Hospital Course Hospital Course: Patient was admitted after surgery for overnight observation. Her hospital course was unremarkable. Patient is now tolerating a regular diet with no nausea or emesis. Her pain is well controlled on p.o. pain medicine. She is ambulating unassisted and voiding without any issues. She was deemed ready for discharge on postop day 1. Status at Discharge Functional status at discharge: independent ambulation Overall status at discharge: patient is back to baseline Time Spent with Patient Time attestation: Total time spent providing and/or coordinating discharge services: Time spent: Less than 30 minutes Exam Const: General: comfortable and no acute distress HENMT: Mouth: Yes moist mucous membranes Eyes: General: appearance normal, both eyes and all related structures Resp: Effort & Inspection: normal respiratory effort Cardio: Rate: regular rate Skin: General skin exam: normal color Other: Bilateral Mark pattern mastectomy incisions with Steri-Strips intact there is very minimal strike through noted on the Steri-Strips. No significant bruising or fluctuance noted on either mastectomy flap. Right nipple is well perfused throughout left nipple appears mildly dusky on the superior aspect but well-perfused inferiorly. There is mild ecchymosis in the left axilla, but no fluctuance. Both drains have bloody output left was 167 over night and right was less than 100. On Q catheters intact. Neuro: Sensory Exam: normal sensation Extrem: General: normal to inspection Psych: Mental Status: mental status grossly normal DS: Data Data Completed and Pending Pending studies at discharge: Pending at discharge 07/18/25 08:52 Surgical [PTH] Routine Surgical [PTH] Routine Surgical [PTH] Routine Surgical [PTH] Routine Discharge Plan Discharge Attending physician on discharge: Traci Yuan Consulting providers: Loyda Arnett Discharging Clinician: Traci Yuan Anticipated Discharge Date/Time: 07/19/25 07:47 Patient Disposition: Home Activity: no shower and other - see discharge instructions Diet: as tolerated and regular Wound Care Instructions: other - see discharge instructions Discharge Instructions: Post-Operative Instructions Breast Reconstruction Dressing Instructions: Keep bra and surgical dressings clean, dry, and in place at all times. Shower Instructions: Keep surgical dressings, incisions, and drains, dry at all times. You may shower or sponge bathe from waist down. May sponge bathe underarms and upper extremities. Activity: Avoid strenuous activity and heavy lifting/pushing/pulling until seen in office for follow up appointment. Avoid overhead arm movements. Walking is encouraged to help with bowel movement as well as help prevent blood clots in the lower extremities. Deep breathing exercises are encouraged to help prevent lung infections. Drain Care: Keep drains on suction at all times. Strip drain tubing at least every 12 hours. Empty drains every 12 hours and record output separately for each side. Please bring output record to your first follow up visit in office. Medication: May take Advil or Tylenol for pain. May take prescription pain medication as prescribed if not controlled by Advil/Tylenol. Prescription pain medication may cause constipation. Take antibiotics as prescribed. If you are taking pain medication/narcotics, please make sure to take something for constipation (fiber supplement, colace, miralax, milk of magnesia, etc) Follow up: Please follow up with Plastics in office in 3-5 days. Follow up with Breast Surgery in 2 weeks. Please call the office for any questions or concerns, including uncontrolled pain, fever/chills, bleeding, redness, or unexpected changes in sensation. If after normal business hours, please request the dehydration plant operator page the surgeon or PA. For emergent symptoms, please call 911 or seek assistance at the nearest Emergency Room. Patient Language: Cameroonian Stand Alone Forms: General Discharge Instructions Follow-up/Referrals: Loyda Arnett MD [Physician, Plastic Surgery] Referral Note: next week Traci Yuan MD [Physician, Breast Surgery] Referral Note: in 2 weeks Discharge Medications: New hydrocodone-acetaminophen 5-325 mg tablet 1 tablet PO Q6H PRN (Reason: pain) Qty: 16 0RF cephalexin 500 mg capsule 500 mg PO Q12H Qty: 14 0RF Continued ondansetron HCl 8 mg tablet 8 mg PO Q8H PRN (Reason: nausea and vomiting) Patient Comments: . levothyroxine 137 mcg capsule 137 mcg PO DAILY Qty: 90 1RF meclizine 25 mg tablet 25 mg PO TID PRN (Reason: dizziness) 10 Days Qty: 30 0RF Patient Comments: . multivitamin [Daily Multi-Vitamin] Tablet 1 tablet PO DAILY Patient Comments: . Vitafol Gummies 3.33 mg iron- 0.33 mg tablet,chewable 2 tablet PO DAILY sertraline 50 mg tablet 50 mg PO DAILY Qty: 90 2RF Date of admission: 07/18/25 11:06 Primary Care Provider: Trey Shen Admitting Provider: Traci Yuan Attending physician on admission: Traci Yuan Condition: Stable
[2025-07-19 08:50] VITALS: BP 96/57; PULSE 74; RESP 16; TEMP 37.1; O2SAT 95
[2025-07-19] MEDS: LEVOTHYROXINE SODIUM 112 MCG TABLET PO (10:17)
[2025-07-19] MEDS: MULTIVIT/MIN/PREN/FOL AC/IRON TABLET 2 TAB PO (10:17)
[2025-07-19] MEDS: DOCUSATE SODIUM 100 MG CAPSULE PO (10:17)
[2025-07-19] MEDS: CEPHALEXIN 500 MG CAPSULE PO (10:17)
== END 2025-07-19 11:00 | disposition home or self-care (01) ==
LOC: ANHSURGERY 06:12 → ANHOB2 07-19 07:49
PROVIDERS: Plastic Surgery; PCP Family Medicine; Visit Provider Surgery
PROC: (CPT 19303; principal; 2025-07-18 07:30)
PROC: (CPT 19357; 2025-07-18 07:30)
DX: C50.912 Malignant neoplasm of unspecified site of left female breast (principal); Z17.31 Human epidermal growth factor receptor 2 positive status; C77.3 Secondary and unspecified malignant neoplasm of axilla and upper limb lymph nodes; F41.8 Other specified anxiety disorders; E03.9 Hypothyroidism, unspecified; E66.01 Morbid (severe) obesity due to excess calories; Z68.41 Body mass index [BMI] 40.0-44.9, adult
CPT/HCPCS: 19303; 38525; 38900; 19357; 19316; 15777 ×2; 38792; 76098; 88305; 88307; 88342; J0690; A9270; A9520; J1100; J1171; J1200; J1580; J2003; J2004; J2250; J2405; J2704; J3010; J7120; Q4116; Q9968

== ENCOUNTER 2025-08-13 08:26 | Outpatient (CLI) | payer OTHER, SELFPAY ==
--- NOTE | 2025-08-13 | ECHO_ITS ---
Patient Info Name: Austin Dong Age: 45 years : 1980 Gender: Female Ht: 64 in Wt: 237 lbs BSA: 2.26 m2 HR: 74 bpm BP: 128 / 90 mmHg Heart Rhythm: Sinus Rhythm Technical Quality: Fair Exam Date: 08/13/2025 8:45 AM Patient Status: O Admit Date: 08/13/2025 Exam Type: CA echo doppler color flow Complete two-dimensional, color flow and Doppler transthoracic echocardiogram is performed. Strain analysis performed. Clinical Quality Analyst: [place] Attending Provider: Neal Mena MD Summary 1. Complete two-dimensional, color flow and Doppler transthoracic echocardiogram is performed. 2. Left ventricular chamber dimension is normal. 3. Left ventricular systolic function is normal, estimated at 60-65. 4. The left ventricular diastolic function is normal. 5. E/e' 8 is minimally elevated. 6. Global longitudinal strain is normal at -19.4%. 7. Left atrial chamber dimension is mildly enlarged. 8. There is trace mitral valve regurgitation. Left Ventricle E/e' 8 is minimally elevated. Left ventricular chamber dimension is normal. Left ventricular systolic function is normal, estimated at 60-65. The left ventricular diastolic function is normal. Global longitudinal strain is normal at -19.4%. Right Ventricle Right ventricular chamber dimension is normal. Right ventricular systolic function is normal and with normal TAPSE 2.6 cm. Left Atria Left atrial chamber dimension is mildly enlarged. Right Atria Right atrial chamber dimension is normal. Aortic Valve The aortic valve is trileaflet. There is no aortic valve stenosis. There is no aortic valve regurgitation. Pulmonic Valve There is no pulmonic regurgitation. Mitral Valve There is no mitral valve stenosis. There is trace mitral valve regurgitation. Tricuspid Valve There is no tricuspid valve regurgitation. Inferior Vena Cava Normal inferior vena cava with >50% collapse upon inspiration consistent with normal right atrial pressure, 5 mmHg. Aorta The aortic root size at the sinus of Valsalva is normal. Left Ventricular Outflow Tract Name Value Normal LVOT 2D LVOT Diameter 1.9 cm LVOT Doppler LVOT Peak Velocity 108 cm/s LVOT Peak Gradient 5 mmHg LVOT Mean Gradient 2 mmHg LVOT VTI 24 cm LVOT VTI/AV VTI Ratio 0.9 LVOT Stroke Volume 64 ml LVOT CO 4.2 l/min LVOT CI 1.8 l/min/m2 Pulmonic Valve Name Value Normal RVOT Doppler RVOT Peak Velocity 63 cm/s RVOT Peak Gradient 2 mmHg PV Doppler PV Peak Velocity 100 cm/s PV Peak Gradient 4 mmHg Mitral Valve Name Value Normal MV Diastolic Function MV E Peak Velocity 77 cm/s MV A Peak Velocity 55 cm/s MV E/A 1.4 MV Decel Time (PW) 239 ms MV Annular TDI MV E/e' (Septal) 8.8 MV E/e' (Lateral) 7.6 MV E/e' (Average) 8.2 Tricuspid Valve Name Value Normal Estimated PAP/RSVP RA Pressure 5 mmHg <=5 TV Annular TDI TV Lateral Melani s' Velocity 12.2 cm/s >=9.5 Aorta Name Value Normal Ascending Aorta Ao Root Diameter (MM) 3.1 cm Ao Root Diam Index (MM) 1.4 cm/m2 Aortic Valve Name Value Normal AV Doppler AV Peak Velocity 127 cm/s AV Peak Gradient 7 mmHg AV Mean Gradient 4 mmHg AV VTI 25 cm AV Area (Cont Eq VTI) 2.6 cm2 >=3.0 AV Area (Cont Eq Popeye) 2.3 cm2 AV DI (Popeye) 0.85 AV Regurgitation 2D LVOT Area 2.7 cm2 Ventricles Name Value Normal LV Dimensions 2D/MM IVS Diastolic Thickness (2D) 1.0 cm 0.6-1.0 LVID Diastole (2D) 5.0 cm 3.8-5.2 LVIW Diastolic Thickness (2D) 0.9 cm 0.6-0.9 LVID Systole (2D) 3.1 cm 2.2-3.5 LVOT Diameter 1.9 cm LV Mass (2D Cubed) 161.66 g 67.00-162.00 LV Mass Index (2D Cubed) 72 g/m2 43-95 Relative Wall Thickness (2D) 0.34 <=0.42 LV Fractional Shortening/Ejection Fraction 2D/MM LV Fractional Shortening (2D) 38 % 27-45 LV EF (2D Teichholz) 68 % LV Diastolic Volume (4C MOD) 83 ml LV EF (4C MOD) 74 % LV Diastolic Volume (2C MOD) 106 ml LV EF (2C MOD) 76 % LV Diastolic Volume (BP MOD) 93 ml 46-106 LV Diastolic Volume Index (BP MOD) 41 ml/m2 29-61 LV Systolic Volume (BP MOD) 23 ml 14-42 LV Systolic Volume Index (BP MOD) 10 ml/m2 8-24 LV EF (BP MOD) 75 % 54-74 LV Diastolic Length (4C) 8.1 cm LV Systolic Length (4C) 6.0 cm LV Stroke Volume (4C MOD) 61 ml Atria Name Value Normal LA Dimensions LA Dimension (MM) 3.8 cm 2.7-3.8 LA Volume (4C A-L) 55 ml LA Volume (BP A-L) 60 ml RA Dimensions RA Area (4C) 11.8 cm2 <=18.0 EchoPAC Name Value Normal RADHA LV Apical Anterior Longitudinal Strain (RADHA) -22.7 % LV Apical Anteroseptal Longitudinal Strain (RADHA) -22.8 % LV Apical Inferior Longitudinal Strain (RADHA) -28.0 % LV Apical Lateral Longitudinal Strain (RADHA) -17.5 % LV Apical Posterior Longitudinal Strain (RADHA) -18.3 % LV Apical Septal Longitudinal Strain (RADHA) -24.8 % AV Closure (RADHA) 385 ms LV Basal Anterior Longitudinal Strain (RADHA) -14.1 % LV Basal Anteroseptal Longitudinal Strain (RADHA) -18.0 % LV Basal Inferior Longitudinal Strain (RADHA) -18.1 % LV Basal Anterolateral Longitudinal Strain (RADHA) -13.6 % LV Basal Inferolateral Longitudinal Strain (RADHA) -21.7 % LV Basal Inferoseptal Longitudinal Strain (RADHA) -18.9 % LV Global Longitudinal Strain (2C RADHA) -20.1 % LV Global Longitudinal Strain (4C RADHA) -18.3 % LV Global Longitudinal Strain (APLAX RADHA) -19.7 % LV Global Longitudinal Strain (RADHA) -19.4 % LV Mid Anterior Longitudinal Strain (RADHA) -15.7 % LV Mid Anteroseptal Longitudinal Strain (RADHA) -21.3 % LV Mid Inferior Longitudinal Strain (RADHA) -22.4 % LV Mid Anterolateral Longitudinal Strain (RADHA) -12.6 % LV Mid Inferolateral Longitudinal Strain (RADHA) -18.4 % LV Mid Inferoseptal Longitudinal Strain (RADHA) -21.6 % Report Signatures
--- OUTSIDE RECORDS SUMMARY | 2025-08-13 08:59 | XMS_ITS | Clinical Summary ---
[facility] Address [address] [place] [address] Care Team Providers Care Clinical Quality Assurance Associate Name Role Phone Trey Shen MD Primary Care Provider [phone] Allergies Active Allergy Reactions Criticality Noted Date [...] as needed for Diarrhea/Loose Stools. 30 Tablet 5 Active cephALEXin (KEFLEX) 500 mg capsule Take 1 Capsule by mouth 2 times daily. 5 Active Active Problems No known active problems Encounters Date Type Department Care Team Description 08/13/2025 Orders Only [facility] Oncology and Hematology - Conner [address] [place] [id number] Neal Mena MD Malignant neoplasm of upper-outer quadrant of left breast in female, estrogen receptor positive (CMS/HCC) 08/09/2025 Orders Only [facility] Oncology and Hematology - [address]ner [address] [place] [id number] Neal Mena MD Malignant neoplasm of upper-outer quadrant of left breast in female, estrogen receptor positive (CMS/HCC) (Primary Dx) 07/30/2025 Orders Only [facility] Oncology and Hematology - [address] [place] [address] Neal Mena MD Malignant neoplasm of upper-outer quadrant of left breast in female, estrogen receptor positive (CMS/HCC) 07/25/2025 9:00 AM CDT Office Visit [facility] Oncology and Hematology - [address] [place] [address] Neal Mena MD Malignant neoplasm of upper-outer quadrant of left breast in female, estrogen receptor positive (CMS/HCC) (Primary Dx) 07/25/2025 Orders Only [facility] Oncology and Hematology - Conner [address] [place] [address] Neal Mena MD 07/16/2025 Orders Only [facility] Oncology and Hematology - Conner [address] [place] [address] Neal Mena MD Malignant neoplasm of upper-outer quadrant of left breast in female, estrogen receptor positive (CMS/HCC) 07/03/2025 External Device Data STL ABSTRACTION Provider, Abstract 07/02/2025 Orders Only [facility] Oncology and Hematology - [address] [place] [id number] Neal Mena MD Malignant neoplasm of upper-outer quadrant of left breast in female, estrogen receptor positive (CMS/HCC) 06/22/2025 Telephone [facility] Oncology and Hematology - [address] [place] [phone] Neal Mena MD Loss of blood 06/22/2025 Telephone [facility] Oncology and Hematology - [address] [place] [address] Neal Mena MD Loss of blood 06/21/2025 Orders Only [facility] Oncology and Hematology - Conner [address] [place] [address] Neal Mena MD 06/18/2025 Orders Only [facility] Oncology and Hematology - Con[address] [place] [address] Neal Mena MD Malignant neoplasm of upper-outer quadrant of left breast in female, estrogen receptor positive (CMS/HCC) 06/15/2025 Telephone [facility] Oncology and Hematology - [address] [place] [address] Neal Mena MD Blood in stool 06/13/2025 9:00 AM CDT Office Visit [facility] Oncology and Hematology - [address] [place] [address] Neal Mena MD Malignant neoplasm of upper-outer quadrant of left breast in female, estrogen receptor positive (CMS/HCC) (Primary Dx) 06/13/2025 External Device Data STL ABSTRACTION Provider, Abstract 06/13/2025 External Device Data STL ABSTRACTION Provider, Abstract 06/13/2025 Orders Only [facility] Oncology and Hematology - Conner [address] [place] [address] Neal Mena MD 06/04/2025 Orders Only [facility] Oncology and Hematology - Con[address] [place] [address] Neal Mena MD Malignant neoplasm of upper-outer quadrant of left breast in female, estrogen receptor positive (CMS/HCC) 05/28/2025 Orders Only [facility] Oncology and Hematology - Conner [address] [place] [address] Neal Mena MD 05/24/2025 Orders Only [facility] Oncology and Hematology - Conner [address] [place] [address] Neal Mena MD 05/23/2025 9:30 AM CDT Office Visit [facility] Oncology and Hematology - [address] [place] [address] Neal Mena MD Malignant neoplasm of upper-outer quadrant of left breast in female, estrogen receptor positive (CMS/HCC) (Primary Dx) 05/21/2025 Orders Only [facility] Oncology and Hematology - Conner [address] [place] [address] Neal Mena MD Malignant neoplasm of upper-outer quadrant of left breast in female, estrogen receptor positive (CMS/HCC) 05/16/2025 External Device Data STL ABSTRACTION Provider, Abstract from Last 3 Months Family History Medical [...] on file Legal Sex Female 5:43 AM SENIOR ADULTS DIRECTOR Gender Identity Not on file Sexual Orientation Not on file Last Filed Vital Signs Vital Sign Reading Time Taken Comments Blood Pressure 139/89 07/25/2025 8:41 AM CDT Pulse 88 07/25/2025 8:41 AM CDT Temperature 36.1 C (97 F) 07/25/2025 8:41 AM CDT Respiratory Rate 15 07/25/2025 8:41 AM CDT Oxygen Saturation 98% 07/25/2025 8:41 AM CDT Inhaled Oxygen Concentration - - Weight 108.6 kg (239 lb 6.4 oz) 07/25/2025 8:41 AM CDT Height 162.6 cm (5' 4) 02/02/2025 1:46 PM SENIOR ADULTS DIRECTOR Body Mass Index 41.09 02/02/2025 1:46 PM SENIOR ADULTS DIRECTOR Plan of Treatment Upcoming Encounters Date Type Department Care Team (Late st Contact Info) Description 08/22/2025 8:30 AM CDT Office Visit [facility] Oncology and Hematology - Henry [address] [facility] [address] [place] [address] Neal Mena MD [address] [facility] [address] [place] [address] Health Maintenance Due Date Last [...] Procedure Name Priority Date/Time Associated Diagnosis Comments CHG CA 15 3 Routine 08/08/2025 12:59 PM CDT BASIC METABOLIC PANEL Routine 07/25/2025 11:58 AM CDT COMPREHENSIVE METABOLIC PANEL Routine 07/25/2025 11:56 AM CDT CBC WITH AUTODIFFERENTIAL Routine 2024 1:26 PM CDT BASIC METABOLIC PANEL Routine 06/13/2025 1:41 PM CDT COMPREHENSIVE METABOLIC PANEL Routine 06/13/2025 1:25 PM CDT BASIC METABOLIC PANEL Routine 05/23/2025 4:14 PM CDT COMPREHENSIVE METABOLIC PANEL Routine 05/23/2025 4:11 PM CDT CBC WITH DIFFERENTIAL Routine 05/17/2025 3:54 PM CDT from Last 3 Months Results * CHG CA 15 3 (08/08/2025 12:59 PM CDT) us Neal Mena MD CHG - LABORATORY Final Result * BASIC METABOLIC PANEL (07/25/2025 11:58 AM CDT) Only the most recent of3 resultswithin the time period is included. Blood us Neal Mena MD CHEMISTRY ORDERABLES Final Resu lt * COMPREHENSIVE METABOLIC PANEL (07/25/2025 11:56 AM CDT) Only the most recent of3 resultswithin the time period is included. Blood us Neal Mena MD CHEMISTRY ORDERABLES Final Resu lt * CBC WITH AUTODIFFERENTIAL (06/20/2025 1:26 PM CDT) Blood us Neal Mena MD HEMATOLOGY ORDERABLES Final Res ult * CBC WITH DIFFERENTIAL (05/17/2025 3:54 PM CDT) Blood us Neal Mena MD HEMATOLOGY ORDERABLES Final Res ult from Last 3 Months Insurance [facility] [employer] Care Teams Clinical Quality Assurance Associate Relationship Specialty Start Date End Date Trey Shen MD [address] [facility] [address] [facility] [address] [place] [address] PCP - General Family Practice 05/02/25
--- OUTSIDE RECORDS SUMMARY | 2025-08-13 08:59 | XMS_ITS | Encounter Summary ---
Author Organization [facility] Address [address] [facility] [place] [address] Care Team Providers Care Rn Anesthesiology Name Role Phone Trey Shen MD Primary Care Provider [phone] Encounter Details Date Type Department Care Team (Late st Contact Info) Description 07/20/2025 Lab Requisition [facility] - Pathology Lab [address] [place] [address] Moshe Reese MD [address] [place] [address] Illness, unspecified Social History Tobacco Use Types Packs/Day Years Used Date Smoking Tobacco: Never Assessed Comments Unknown Sex and Gender Information Value Date Recorded Sex Assigned at Not on file Legal Sex Female 9:21 AM CDT Gender Identity Not on file Sexual Orientation Not on file documented as of this encounter Plan of Treatment Pending Results Name Type Priority Associated Diagnoses Date /Time SLIDE PREP HISTOLOGY Pathology Cytology Routine Illness, unspecified 07/20/2025 8:58 AM CDT documented as of this encounter Visit Diagnoses Diagnosis Illness, unspecified documented in this encounter Care Teams Rn Anesthesiology Relationship Specialty Start Date End Date Trey Shen MD [address] [place] [address] PCP - General 03/06/21 documented as of this encounter
--- OUTSIDE RECORDS SUMMARY | 2025-08-13 08:59 | XMS_ITS | Encounter Summary ---
Author Organization [facility] [employer] [facility] Address [address] [place] [address] Care Team Providers Care Engineer And Geologist Name Role Phone Trey Shen MD Primary Care Provider [phone] Encounter Details Date Type Department Care Team (Late st Contact Info) Description 08/13/2025 Orders Only [facility] On[facility] and [facility] [address] [place] [address] Neal Mena MD [address] [employer] [address] [place] [address] Malignant neoplasm of upper-outer quadrant of [...] on file Legal Sex Female 5:43 AM GEM EXPERT Gender Identity Not on file Sexual Orientation Not on file documented as of this encounter Plan of Treatment Upcoming Encounters Date Type Department Care Team (Late st Contact Info) Description 08/22/2025 8:30 AM CDT Office Visit [facility] Oncology and Hematology [facility] [address] [place] [address] Neal Mena MD [address] [employer] [address] [place] [address] documented as of this encounter Visit Diagnoses Diagnosis Malignant neoplasm of upper-outer quadrant of left breast in female, estrogen receptor positive (CMS/HCC) documented in this encounter Care Teams Engineer And Geologist Relationship Specialty Start Date End Date Trey Shen MD [address] [facility] [address] [place] [address] PCP - General Family Practice 05/02/25 documented as of this encounter
--- OUTSIDE RECORDS SUMMARY | 2025-08-13 08:59 | XMS_ITS | Encounter Summary ---
Author Organization [facility] Address [address] [place] [address] Care Team Providers Care Mortician Helper Name Role Phone Trey Shen MD Primary Care Provider [phone] Encounter Details Date Type Department Care Team (Late st Contact Info) Description 03/15/2009 Emergency [facility] Er, Authorized P NO ADDRESS ON FILE Juan Carranza MD [address] [place] [address] Social History Tobacco Use Types Packs/Day Years Used Date Smoking Tobacco: Never Assessed Comments Unknown Sex and Gender Information Value Date Recorded Sex Assigned at Not on file Legal Sex Female 5:43 AM PHOTOGRAPHY ASSISTANT Gender Identity Not on file Sexual Orientation Not on file documented as of this encounter Plan of Treatment Upcoming Encounters Date Type Department Care Team (Late st Contact Info) Description 08/22/2025 8:30 AM CDT Office Visit [facility] Oncology and Hematology - Conner [address] [facility] [address] [place] [address] Neal Mena MD [address] [facility] [address] [place] [address] documented as of this encounter Procedures Procedure Name Priority Date/Time Associated Diagnosis Comments CBC WITH DIFFERENTIAL Stat 03/15/2009 10:24 PM CDT C-REACTIVE PROTEIN Stat 03/15/2009 10 :24 PM CDT COMPREHENSIVE METABOLIC PANEL Stat 03/15/2009 10:24 PM CDT documented in this encounter Results * C-REACTIVE PROTEIN (03/15/2009 10:24 PM CDT) CRP 0.7 0.0 - 0.8 mg/dL [facility] Blood specimen (specimen) 03/15/2009 10:24 PM CDT 03/15/2009 10:40 PM CDT us Juan Carranza MD CHEMISTRY ORDERABLES Final Resu lt INTERFACE SYSTEM Refer to clinic/hospital department [facility] CLIA# [id number] [address] [facility] [place] [facility] [address] * (ABNORMAL) COMPREHENSIVE METABOLIC PANEL (03/15/2009 10:24 PM CDT) Pathologist [facility] CREATININE 0.60 0.51 - 0.95 mg/dL [facility] SODIUM 137 135 - 145 mmol/L [facility] ALT 12 0 - 31 U/L [facility] ALKALINE PHOSPHATASE 46 35 - 104 U/L [facility] BILIRUBIN TOTAL 0.5 0.2 - 1.0 mg/dL [facility] CO2 21(L) 22 - 30 mmol/L [facility] TOTAL PROTEIN 6.1(L) 6.3 - 8.6 g/dL [facility] POTASSIUM 3.1(L) 3.5 - 4.9 mmol/L [facility] GLUCOSE 111(H) 65 - 99 mg/dL [facility] AST 17 12 - 32 U/L [facility] BUN 6 6 - 20 mg/dL [facility] CALCIUM 8.5(L) 8.6 - 10.2 mg/dL [facility] CHLORIDE 107 96 - 108 mmol/L [facility] ALBUMIN 3.5 3.4 - 4.8 g/dL [facility] GFR, >60 >=60 mL/min/1. 7 sq meter [facility] GFR >60 >=60 mL/min/1. 7 sq meter [facility] Comment: Modification of Diet in Renal Disease (MDRD) study formula. Estimated GFR rate interpretative information for both Americans and non- Americans is available on the [facility] Intranet at: [email or web address] Select: Lab Policies and Procedures Select: Reference Ranges - GFR Blood specimen (specimen) 03/15/2009 10:24 PM CDT 03/15/2009 10:40 PM CDT Juan Carranza MD CHEMISTRY ORDERABLES Edited INTERFACE SYSTEM Refer to clinic/hospital department [facility] CLIA# [id number] [address] [place] [address] * (ABNORMAL) CBC WITH DIFFERENTIAL (03/15/2009 10:24 PM CDT) HEMOGLOBIN 10.4(L) 11.8 - 14.8 g/dL [facility] RDW 14.2 11.5 - 14.5 % [facility] WBC 10.7(H) 4.0 - 9.8 K/uL [facility] MCH 30.0 27.2 - 32.6 pg [facility] MPV 10.9 9.3 - 12.4 fL [facility] HEMATOCRIT 30.4(L) 35.5 - 44.0 % [facility] RDW-STDEV 44.5 37.1 - 48.7 fL [facility] RBC 3.47(L) 3.90 - 4.90 M/uL [facility] MCHC 34.2 31.5 - 35.5 % [facility] MCV 87.6 82.0 - 99.0 fL [facility] PLATELETS 229 140 - 350 K/uL [facility] LYMPHOCYTES 17 16 - 45 % [facility] LYMPHOCYTE ABSOLUTE 1.84 0.70 - 4.50 K/uL [facility] BASOPHILS 0 0 - 2 % [facility] BASOPHILS ABSOLUTE 0.01 0.00 - 0.20 K/uL [facility] MONOCYTES 7 3 - 13 % [facility] MONOCYTE ABSOLUTE 0.72 0.10 - 1.30 K/uL [facility] NEUTROPHILS 75(H) 45 - 70 % [facility] NEUTROPHIL ABSOLUTE 8.05(H) 1.90 - 7.00 K/uL [facility] EOSINOPHILS 1 0 - 7 % [facility] EOSINOPHIL ABSOLUTE 0.07 0.00 - 0.70 K/uL [facility] Blood specimen (specimen) 03/15/2009 10:24 PM CDT 03/15/2009 10:40 PM CDT us Juan Carranza MD HEMATOLOGY ORDERABLES Edited INTERFACE SYSTEM Refer to clinic/hospital department [facility] CLIA# [id number] [address] [place] [address] documented in this encounter Visit Diagnoses Not on filedocumented in this encounter Care Teams Mortician Helper Relationship Specialty Start Date End Date Trey Shen MD [address] [facility] [address] [place] [address] PCP - General Family Practice 6/4/25 documented as of this encounter
--- OUTSIDE RECORDS SUMMARY | 2025-08-13 08:59 | XMS_ITS | Clinical Summary ---
Author Organization [facility] Physician Office Building [address] [place] [address] Care Team Providers Care Nuclear Security Officer Name Role Phone Trey Shen MD Primary Care Provider Traci Yuan MD Unavailable [phone] Allergies Active Allergy Reactions Criticality Noted Date [...] 12/05/2024 Assessment & Plan (12/05/2024 3:05 PM OUTREACH ANALYST): I counseled the patient on exercise: Recommend 36 min. cardio daily. Based on availiable data on the secondary prevention of coronary heart disease, stroke and prediabetes, physical activity is potentially as active as many drug interventions.GarettOmar brush: BMJ 2013 347:f5577;08/2013; Diabetes Care, Volume 35, Oct 2012. Reviewed recommendation/goal of >/= 150 minutes/week moderate intensity aerobic exercise. Discussed need for weightbearing exercise in order to promote muscle gain and burning fat. Body mass index 45.0-49.9, adult 12/05/2024 Assessment & Plan (12/05/2024 3:57 PM OUTREACH ANALYST): Patient's highest BMI was 48.6 ; initial BMI was 46.8; this has improved to 41.07 through medical management Vitamin D deficiency 09/12/2024 Assessment & Plan (12/05/2024 3:06 PM OUTREACH ANALYST): Continue vitamin-D supplementation Assessment & Plan (09/12/2024 4:10 PM CDT): start vitamin-D replacement 5,000IU daily Encounter for weight loss counseling 07/11/2024 Assessment & Plan (12/05/2024 3:05 PM OUTREACH ANALYST): Reviewed importance of adequate protein intake. Reviewed [...] 07/11/2024 Assessment & Plan (12/05/2024 3:05 PM OUTREACH ANALYST): Obesity is one of the leading risk [...] 03/21/2018 Assessment & Plan (12/05/2024 4:18 PM OUTREACH ANALYST): Reviewed most recent labs. Continue low carb, [...] 03/21/2018 Assessment & Plan (12/05/2024 3:05 PM OUTREACH ANALYST): Continue current dose of levothyroxine. Assessment & [...] on file Legal Sex Female 7:08 PM OUTREACH ANALYST Gender Identity Not on file Sexual [...] (239 lb 6.4 oz) 12/05/2024 3:55 PM OUTREACH ANALYST Height 162.6 cm (5' 4.02) 12/05/2024 3:55 PM CS T Body Mass Index 41.07 12/05/2024 3:55 PM OUTREACH ANALYST Plan of Treatment Health Maintenance Due Date Last Done Comments Breast Cancer Screening-Mammogram 1978 Cervical Cancer Screening 1978 Colon Cancer Screening-Colonoscopy 1978 Hepatitis C Screening 1978 DTaP/Tdap/Td Vaccine (1 - Tdap) 1989 Hepatitis B Screening 02/05/1996 Regular Well Visit/Exam 18-64 02/05/1996 Depression Screening 03/21/2019 03/21/2018 Covid-19 Vaccine (2 - 2024-2 6 season) 2025 03/07/2021 Influenza Vaccine (#1) 2025 Pneumococcal vaccine <65 Aged Out No longer eligible based on patient's age to complete this topic [facility] [id number] Care Teams Nuclear Security Officer Relationship Specialty Start Date End Date Trey Shen MD [address] [place] [address] [place] [address] PCP - General Family Medicine 03/10/18 Traci Yuan MD [address] [place] [address] Referring Physician General Surgery 08/09/25
--- OUTSIDE RECORDS SUMMARY | 2025-08-13 08:59 | XMS_ITS | Clinical Summary ---
Author Organization [facility] [employer] Address [address] [facility] [place] [address] Care Team Providers Care Tile Conduit Layer Name Role Phone Trey Shen MD Primary Care Provider [phone] Source Comments [facility],non-owned Affiliates and Associated Physician Practices is amultiple site organization consisting of ambulatory clinics and hospital sitesin [place], [place], [place] and [place]. This disclosure is being madepursuant to the Care Everywhere program and may not contain all information available regarding this patient. Last updated 18.[facility] [employer] Encounters Date Type Department Care Team Description 07/20/2025 Lab Requisition [facility] - Pathology Lab [address] [place] [address] Moshe Reese MD Illness, unspecified from Last 3 Months Social History Tobacco Use Types Packs/Day Years Used Date Smoking Tobacco: Never Assessed Comments Unknown Sex and Gender Information Value Date Recorded Sex Assigned at Not on file Legal Sex Female 9:21 AM CDT Gender Identity Not on file Sexual Orientation Not on file Plan of Treatment Health Maintenance Due Date Last Done Comments COLOGUARD (AGES 45-75) - COL ON CA SCREENING 1978 COLON MONITORING 1978 COLONOSCOPY - COLON CA SCREENING 1978 CT COLONOGRAPHY - COLON CA SCREENING 1978 Colorectal Cancer Screening 1978 FIT - COLON CA SCREENING 1978 FLEX SIG - COLON CA SCREENING 1978 LIPID TESTING 1978 MAMMOGRAM 1978 HIV SCREENING 1993 HEPATITIS C SCREENING 01/31/1996 DTAP/TDAP/TD VACCINES (1 - Tdap) 1997 HEPATITIS B VACCINE (1 of 3 - 19+ 3-dose series) 1997 PAP SMEAR 1999 DEPRESSION SCREENING 11/29/2024 COVID-19 VACCINE (2023-2 5 season) 2025 INFLUENZA VACCINE (#1) 2025 ZOSTER VACCINE (1 of 2) 02/05/2028 HIB VACCINE Aged Out No longer eligi ble based on patient's age to complete this topic HPV VACCINE Aged Out No longer eligi ble based on patient's age to complete this topic MENINGOCOCCAL (Group B) VACC INE SHARED DECISION-MAKING Aged Out No longer eligibl e based on patient's age to complete this topic MENINGOCOCCAL GROUPS A/C/Y/W VACCINE Aged Out No longer eligible b ased on patient's age to complete this topic PNEUMOCOCCAL VACCINE Aged Out No long er eligible based on patient's age to complete this topic Insurance tabulate Member Subscriber Plan / Payer (Ef fective 2021-Present) Name:Funmilayo Dong Member ID:[id number] Relation to Subscriber:Self Name:FUNMILAYO MCKENZIE Subscriber ID:[id number] Payer ID:Not on file Type:[facility] Address: [facility] [id number] [id number] [employer] SELF PAY NO INSURANCE Member Subscriber Plan / Payer (Ef fective for All Dates) Name:Funmilayo Dong Member ID:Not on file Relation to Subscriber:Not on file Name:FUNMILAYO MCKENZIE Subscriber ID:Not on file (Home) Address: [address] [place] [address] Payer ID:Not on file Group ID:Not on file Type:Self Pay Address: [place], [place] Care Teams Tile Conduit Layer Relationship Specialty Start Date End Date Trey Shen MD [address] [place], [place] [id number] PCP - General 03/06/21
== END 2025-08-13 08:27 | disposition home or self-care (01) ==
LOC: ANHCARD 08:27
PROVIDERS: PCP Family Medicine; Visit Provider Internal Medicine Hematology & Oncology
DX: C50.412 Malignant neoplasm of upper-outer quadrant of left female breast (principal); Z17.0 Estrogen receptor positive status [ER+]
CPT/HCPCS: 93306

== ENCOUNTER 2025-08-22 17:11 | Emergency (ER) | payer OTHER, SELFPAY ==
--- NOTE | 2025-08-22 17:20 | ED.GENADULT ---
HPI - General Adult General Chief complaint: Eye Problems Stated complaint: ITCHY L EYELID Source: patient Mode of arrival: ambulatory Limitations: no limitations History of Present Illness HPI narrative: Pt is a 45 y/o female presenting with c/o atraumatic L. upper eyelid x a couple days. Denies hx of similar. Tx initiated LETTER CARRIER includes application of heat. No constitutional sx. NO visual disturbances. NO additional complaints. Related Data Home Medications ?Medication ?Instructions ?Recorded ?Confirmed ?Last Taken ?Type multivitamin (Daily Multi-Vitamin 1 tablet PO DAILY 01/25/25 07/18/25 07/15/25 History tablet) ondansetron HCl 8 mg tablet 8 mg PO Q8H PRN nausea and vomiting 03/24/25 07/05/25 06/15/25 History valacyclovir PO 08/15/25 Unknown History levothyroxine 137 mcg tablet mcg 08/22/25 Unknown History Allergies Allergy/AdvReac Type Severity Reaction Status Date / Time butorphanol Allergy Intermediate Palpitations,TACHYCARDIA, Verified 08/21/25 11:29 DIZZINESS, VOMITING latex AdvReac Severe Hives Verified 08/21/25 11:29 egg AdvReac Intermediate Vomiting Verified 08/21/25 11:29 ketorolac AdvReac Intermediate Palpitation Verified 08/21/25 11:29 s Review of Systems Review of Systems: CONSTITUTIONAL: Denies body aches, fever, chills, or sweats. EYES: Denies visual changes, redness, or discharge. ENT: Denies rhinorrhea, congestion, sore throat, or otalgia. CARDIOVASCULAR: Denies chest pain, palpitations, or edema. RESPIRATORY: Denies cough or dyspnea. GASTROINTESTINAL: Denies abdominal pain, nausea, vomiting, or diarrhea. GENITOURINARY: Denies dysuria or hematuria. SKIN: Reports itching to L. upper eyelid Denies rash, or wounds. MUSCULOSKELETAL: Denies back pain, joint pain, or myalgia. NEUROLOGIC: Denies headache, numbness, tingling, or weakness. PSYCH: Denies depression or anxiety. All systems reviewed & are unremarkable except as noted in HPI and below PMFSH Past Medical History Medical History Morbid obesity Rosacea Anxiety Diarrhea Otitis media Depression Hypothyroidism, unspecified Migraine without aura and without status migrainosus, not intractable Surgical History Surgical History H/O bilateral mastectomy 07/18/25 H/O breast biopsy Family History Family History Sibling Hypertension Patient's sister is in good health, Onset Age: 38 Patient's brother is in good health, Onset Age: 33 Family history of elevated blood lipids, Onset Age: 36 Diabetes mellitus Father Hypertension Family history of elevated blood lipids, Onset Age: 57 Family history of diabetes mellitus in first degree relative, Onset Age: 57 Diabetes mellitus Mother Family history of chronic obstructive pulmonary disease Family history of coronary artery disease, Onset Age: 54 Social History Social History Social History: Caffeine-occasionally Smoking status: Never smoker Second hand tobacco smoke exposure: No Alcohol intake: never Substance use: never Substance use type: does not use Do You Feel Safe in your Home?: Yes Lack of Transportation: No Lack of Food: Never True Current Housing: Decline to Answer Concerned About Future Housing: Decline to Answer Difficulty Paying Gas/Electric Bills: Decline to Answer Difficulty Paying for Meds: Decline to Answer Currently Unemployed: Decline to Answer Education: Decline to Answer Difficulty w/ Childcare or Family Care: Decline to Answer Living arrangements: with family Occupation/Education: occupation Gender identity (if verbalized by the patient): Female Sexual Orientation (if Verbalized by the Patient): Straight or Heterosexual Spiritual care concerns: No Exam Narrative: GENERAL: Well-appearing, well-nourished, morbidly obese, and in no acute distress. HEAD: Normocephalic, atraumatic. EYES: EOMI. No redness or drainage. Conjunctivae normal.?very mild erythema, edema, and scaling noted to the L. upper eyelid without evidence of secondary bacterial skin infection. no pain with ocular movement. No visible lesion(s) to lids ENT: Mucous membranes pink and moist. NECK: Normal AROM. Supple. CHEST: No respiratory distress. HEART: Regular rate EXTREMITIES: Normal range of motion. SKIN: Warm, dry. Capillary refill normal. Normal skin turgor. NEURO: No focal deficits. Alert and oriented x3. Gait steady. PSYCH: Normal affect. No signs of depression or anxiety. Course Course Emergency Course: presenting with s/sx of atopic dermatitis of the L. upper eyelid. Encouraged symptomatic tx with cool compresses, application of Aquaphor at this time with close pcp f/u and strict GO TO ER precautions discussed at length. Level of Care: Express Care Visit Vital Signs Vital signs: Vital Signs Temperature 97.3 F L 08/22/25 17:21 Pulse Rate 77 08/22/25 17:21 Respiratory Rate 16 08/22/25 17:21 Blood Pressure 133/86 08/22/25 17:21 Pulse Oximetry 99 08/22/25 17:21 Temperature 97.3 F L 08/22/25 17:21 Pulse Rate 77 08/22/25 17:21 Respiratory Rate 16 08/22/25 17:21 Blood Pressure 133/86 08/22/25 17:21 Pulse Oximetry 99 08/22/25 17:21 Medical Decision Making Vital Signs Vital Signs: Vital Signs Temperature 97.3 F L 08/22/25 17:21 Pulse Rate 77 08/22/25 17:21 Respiratory Rate 16 08/22/25 17:21 Blood Pressure 133/86 08/22/25 17:21 Pulse Oximetry 99 08/22/25 17:21 Temperature 97.3 F L 08/22/25 17:21 Pulse Rate 77 08/22/25 17:21 Respiratory Rate 16 08/22/25 17:21 Blood Pressure 133/86 08/22/25 17:21 Pulse Oximetry 99 08/22/25 17:21 Discharge Plan Discharge Clinical Impression: Dermatitis of eyelid of left eye Qualifiers: Dermatitis of eyelid type: unspecified Qualified Code(s): H01.9 - Unspecified inflammation of eyelid Patient Disposition: Home Condition: Stable Instructions: Dermatitis (ED), Cold Compress or Soak (ED) Patient Language: Cameroonian Prescriptions: No Action levothyroxine 137 mcg tablet ondansetron HCl 8 mg tablet 8 mg PO Q8H PRN (Reason: nausea and vomiting) Patient Comments: . levothyroxine 137 mcg capsule 137 mcg PO DAILY Qty: 90 1RF valacyclovir PO multivitamin [Daily Multi-Vitamin] Tablet 1 tablet PO DAILY Patient Comments: . sertraline 50 mg tablet 50 mg PO DAILY Qty: 90 2RF Follow-up/Referrals: Trey Shen MD [Primary Care Provider, Family Practice] - 08/23/25 Time of Disposition: 17:33
[2025-08-22 17:21] VITALS: BP 133/86; PULSE 77; RESP 16; TEMP 36.3; O2SAT 99
== END 2025-08-22 17:34 | disposition home or self-care (01) ==
PROVIDERS: Emergency Provider Registered Nurse; PCP Family Medicine
DX: H01.9 Unspecified inflammation of eyelid (principal); E03.9 Hypothyroidism, unspecified; E66.01 Morbid (severe) obesity due to excess calories; Z68.41 Body mass index [BMI] 40.0-44.9, adult; F41.9 Anxiety disorder, unspecified; F32.A Depression, unspecified; Z90.13 Acquired absence of bilateral breasts and nipples
CPT/HCPCS: 99211; G0463

== ENCOUNTER 2025-08-25 19:35 | Emergency (ER) | payer OTHER, SELFPAY ==
[2025-08-25 19:42] VITALS: BP 122/83; PULSE 82; RESP 16; TEMP 36; O2SAT 98
--- NOTE | 2025-08-25 19:49 | ED_ITS ---
HPI - Skin/Abscess/Foreign Bdy General Stated complaint: Toe Infection patient presents to the [facility] with complaints of pain, swelling, mild redness and drainage from the left big toe that began just prior to arrival at [facility]. Patient noted that when she put her shoes on earlier today there was no symptoms and she [place] the zoo and walked around all day when she came home noticed her feet were hurting and she had to go for shoes she she has had rubbed off nail Georgian but then noticed the symptoms. No medication remedies attempted for symptoms. Patient does report starting a new round of chemo on Wednesday this coming week and wanted to make sure she had this evaluated. Related Data Home Medications ?Medication ?Instructions ?Recorded ?Confirmed ?Last Taken ?Type multivitamin (Daily Multi-Vitamin 1 tablet PO DAILY 07/18/25 07/15/25 History tablet) ondansetron HCl 8 mg tablet 8 mg PO Q8H PRN nausea and vomiting 03/24/25 07/05/25 06/15/25 History valacyclovir PO 08/15/25 Unknown History levothyroxine 137 mcg tablet mcg 08/22/25 Unknown His tory Allergies Allergy/AdvReac Type Severity Reaction Status Date / Time butorphanol Allergy Intermediate Palpitations,TACHYCARDIA, Verified 08/21/25 11:29 DIZZINESS, VOMITING latex AdvReac Severe Hives Verified 08/21/25 11:29 egg AdvReac Intermediate Vomiting Verified 08/21/25 11:29 ketorolac AdvReac Intermediate Palpitation Verified 08/21/25 11:29 s Review of Systems Constitutional: Constitutional: Reports as per HPI, Denies chills, Denies fatigue, Denies fever(s) and Denies weakness Eyes: Eyes: Reports no additional eye complaints ENT: Reports system reviewed and no additional complaints, except as documented Cardiovascular: Cardiovascular: Reports no additional cardiovascular complaints Respiratory: Respiratory: Reports no additional respiratory complaints Gastrointestinal: Gastrointestinal: Reports no additional gastrointestinal complaints Genitourinary: Genitourinary: Reports no additional female genitourinary complaints Musculoskeletal: Musculoskeletal: Reports no additional musculoskeletal complaints Integumentary/Breasts: Skin/Breast: Reports as per HPI, Reports erythema, Denies rash and Denies skin ulcer Comments: drainage and swelling from left big toenail Neurologic: Reports as per HPI, Denies numbness and Denies weakness Psychiatric: Psychiatric: Reports no additional psychiatric complaints Endocrine: Endocrine: Reports no additional endocrine complaints Hematologic/Lymphatic: Hematologic/Lymphatic: Reports no additional hematologic/lymphatic complaints Allergic/Immunologic: Allergic/Immunologic: Reports no additional allergic/immunologic complaints PMFSH Past Medical History Medical History Morbid obesity Rosacea Anxiety Diarrhea Otitis media Depression Hypothyroidism, unspecified Migraine without aura and without status migrainosus, not intractable Surgical History Surgical History H/O bilateral mastectomy 07/18/25 H/O breast biopsy Family History Family History Sibling Hypertension Patient's sister is in good health, Onset Age: 38 Patient's brother is in good health, Onset Age: 33 Family history of elevated blood lipids, Onset Age: 36 Diabetes mellitus Father Hypertension Family history of elevated blood lipids, Onset Age: 57 Family history of diabetes mellitus in first degree relative, Onset Age: 57 Diabetes mellitus Mother Family history of chronic obstructive pulmonary disease Family history of coronary artery disease, Onset Age: 54 Social History Social History Social History: Caffeine-occasionally Smoking status: Never smoker Second hand tobacco smoke exposure: No Alcohol intake: never Substance use: never Substance use type: does not use Do You Feel Safe in your Home?: Yes Lack of Transportation: No Lack of Food: Never True Current Housing: Decline to Answer Concerned About Future Housing: Decline to Answer Difficulty Paying Gas/Electric Bills: Decline to Answer Difficulty Paying for Meds: Decline to Answer Currently Unemployed: Decline to Answer Education: Decline to Answer Difficulty w/ Childcare or Family Care: Decline to Answer Living arrangements: with family Occupation/Education: occupation Gender identity (if verbalized by the patient): Female Sexual Orientation (if Verbalized by the Patient): Straight or Heterosexual Spiritual care concerns: No Exam Const: General: healthy appearing and no acute distress Nutritional Appearance: well nourished Orientation/consciousness: patient oriented x3 Limitations: no limitations Resp: Effort & Inspection: normal respiratory effort Auscultation: clear to auscultation bilaterally Cardio: Rate: regular rate Rhythm: regular rhythm Skin: General skin exam: normal color Rashes: no rashes Other: Minimal redness, swelling, perianal drainage noted top and sides of left great toe nail. No warmth noted. Neuro: General: patient oriented x3 and moves all extremities Speech: normal speech Gait exam (Neuro): Normal gait present Extrem: Left lower extremity: foot Details: abnormal to inspection, tenderness ( Nail) Location: of the great toe, toes with normal ROM, edema, vascular exam Details: dorsalis pedis pulse present, posterior tibial pulse present and normal capillary refill and motor-sensory exam two point discrimination normal, light- touch normal and pin-prick normal; no unusual warmth Psych: Mental Status: mental status grossly normal Affect: normal affect Attitude: cooperative Course Course Level of Care: Express Care Visit Vital Signs Vital signs: Vital Signs Temperature 96.8 F L 08/25/25 19:42 Pulse Rate 82 08/25/25 19:42 Respiratory Rate 16 08/25/25 19:42 Blood Pressure 122/83 08/25/25 19:42 Pulse Oximetry 98 08/25/25 19:42 Temperature 96.8 F L 08/25/25 19:42 Pulse Rate 82 08/25/25 19:42 Respiratory Rate 16 08/25/25 19:42 Blood Pressure 122/83 08/25/25 19:42 Pulse Oximetry 98 08/25/25 19:42 MDM - Skin/Abscess/Foreign Bdy MDM Narrative Medical decision making narrative: no I and D needed at this time area area actively in draining at this time. The patient was evaluated by myself in the express care. History is obtained from patient who is an independent historian and physical exam was performed. Available medical records were reviewed at this time. Exam findings show no acute concerns or changes; patient is non-toxic appearing and is in no distress. Patient is appropriate for outpatient treatment and follow-up. I have evaluated and discussed social determinants of health with the patient that could potentially impact subsequent diagnosis and treatment plans. Differential diagnosis and treatment plan were discussed with the patient. Patient agrees with discussion and after shared medical decision making agrees with plan of care. All questions were answered to the patient's satisfaction. Differential Diagnosis Differential diagnosis: Likely abscess of skin or subcutaneous tissue, urticaria, herpes zoster, cellulitis, impetigo and contact dermatitis Medical Records Attestation: I reviewed the patient's medical records. Discharge Plan Discharge Clinical Impression: Cellulitis of great toe, left Patient Disposition: Home Condition: Stable Instructions: Antibiotic Form, Cellulitis (ED) Additional Instructions: Clean with soap and water only; Avoid using alcohol and peroxide. Elevate the affected area if possible Alternate Tylenol/ibuprofen for as needed for pain Acetaminophen(Tylenol) 650- 1000mg every 4-6hours with max of 4000mg/day. Nonsteroidal anti-inflammatory agent (NSAIDs-ibuprofen): 400mg every 4-6hours with max 2400mg/day Take antibiotic until it's gone. Please schedule a follow up visit with your personal physician for further evaluation and treatment within 3-5days OR if your symptoms persist, change or worsen significantly before you can contact your personal physician then please, without delay, go to the emergency department for further evaluation. Patient Language: Lithuanian Prescriptions: New sulfamethoxazole-trimethoprim [Bactrim DS] 800-160 mg tablet 1 tablet PO Q12H Qty: 14 0RF mupirocin [Centany] 2 % ointment 1 applic topical BID Qty: 22 0RF No Action levothyroxine 137 mcg tablet ondansetron HCl 8 mg tablet 8 mg PO Q8H PRN (Reason: nausea and vomiting) Patient Comments: . levothyroxine 137 mcg capsule 137 mcg PO DAILY Qty: 90 1RF valacyclovir PO multivitamin [Daily Multi-Vitamin] Tablet 1 tablet PO DAILY Patient Comments: . sertraline 50 mg tablet 50 mg PO DAILY Qty: 90 2RF Follow-up/Referrals: Trey Shen MD [Primary Care Provider, [facility]] Time of Disposition: 19:51
== END 2025-08-25 19:52 | disposition home or self-care (01) ==
PROVIDERS: Emergency Provider Nurse Practitioner Family; PCP Family Medicine
DX: L03.032 Cellulitis of left toe (principal); E03.9 Hypothyroidism, unspecified; E66.01 Morbid (severe) obesity due to excess calories; Z68.41 Body mass index [BMI] 40.0-44.9, adult; F41.9 Anxiety disorder, unspecified; F32.A Depression, unspecified
CPT/HCPCS: 99213; G0463

== ENCOUNTER 2025-10-08 06:18 | Emergency (ER) | payer OTHER, SELFPAY ==
--- NOTE | ~2025-10-08 | CT_ITS ---
EXAMINATION: CT brain wo con DATE: 10/08/2025 06:41 INDICATION: Headache. TECHNIQUE: Computed tomography (CT) of the head was performed without intravenous contrast. The mA was adjusted according to patient size. Iterative reconstruction technique was employed. The dose-length product was 605.33 mGy-cm. COMPARISON: Head CT 09/11/2024 FINDINGS: There is no intracranial hemorrhage, acute infarction, or abnormal intracranial mass lesion. The ventricles are normal in size. The orbits are normal. The paranasal sinuses are clear. There is a small mastoid effusion. IMPRESSION: 1. Normal brain. Reviewed, dictated and finalized at location E. MS ANALYST IMPRESSION: 1. Normal brain.
[2025-10-08 06:21] VITALS: BP 149/103; PULSE 72; RESP 18; TEMP 36.4; O2SAT 100
--- OUTSIDE RECORDS SUMMARY | 2025-10-08 06:21 | XMS_ITS | Data Portability ---
Author Organization [facility] [place] Address [address] [place] [address] Care Team Providers Care Dance Artist Name Role Phone STEFAN MCLAUGHLIN Primary Care Provider [phone] Assessment Encounter Date Assessment Date Assessment LastModified [...] mammogram due to mass found in right [email or web address] Not available 07/30/2021 10:56:08 02/17/2024 02/17/2024 Annual gynecological exam performed. Patient will come back in a year unless there are new symptoms. [email or web address] Not available 02/16/2024 17:01:20 08/01/2025 08/01/2025 Annual gynecological exam performed. Patient will come back in a year unless there are new symptoms. Not available 08/01/2025 12:35:51 Plan of Treatment Reminders Order Date Submit Date Provider Last Modified By Organization Details Last Modified Time Details Appointments None recorded. Lab pap, IG + HR HPV - HPV regardless but if HPV is positive need subtyping 16,18/45 2024 025 [facility] (Lab), [address], [place], [address], 5 09:04:09 Referral None recorded. Procedures None recorded. Surgeries None recorded. Imaging MAMMO, screening, digital, bilateral [address] [facility], [address], [address], [place], [address], 4 05:01:18 US, pelvis 2020 021 [email or web address] [facility], [address], [place], [address], 1 07:22:39 US, transvagina l 2020 021 [email or web address] [facility], [place], [address], 1 07:22:39 US, pelvis, complete 2020 021 [email or web address] Not available 2 14:38:51 Medication Orders None recorded. Patient TargetsNo targets recorded. Patient InstructionsNo instructions recorded. Reason for Referral None Reported. Results Created Date Observation Date Name Description Value Unit Range Abnormal Flag Note LastModifiedBy Organization Detail LastModifiedTime 07/30/2007/30/2021 IMAGE GUIDE D PAP AND HPV REGAR DLESS image guided Pap, HPV regardless of Pap result SEE RESULT S BELOW CASE REPOR T: Cytol ogy Gynec ologi tio Repor t Case: [id number] Autho amy caputo Provi cee: Solange Gambino NP Colle cted: 07/30 1304 Order ing Locat ion: [place] Path[facility] Recei manasa: 07/31 0006 First Scree n: Any Caraballo ret, CT Rescr een: Marvin young, [place] , [place] Speci men: Scree chaparrita Pap - Image d, Cervi x STATE MENT OF ADEQU ACY: Satis facto ry for evalu ation Trans forma tion zone compo nent absen t The absen ce of an endoc ervic al compo nent was confi rmed by an addit santana hartley. FINAL DIAGN OSIS: Negat lino for Intra epith elial Lesio n or Danielsherwin ariana (NIL) Elect ina shook juana d by Marvin young, [place] , [place] on 021 at 6:21 PM [...] Thinp rep Imagi ng Syste m. CLINI TIO INFOR MATIO N: Menst rual Statu s: LMP (if appli cable ): 2020 Clini tio Histo ry/Pr eviou s Pap: Type of Neopl domingo (if appli cable ): Signi fican t Clini tio Findi ngs: Other Histo ry: Hormo marisol [...] disea se, since the prese nce of [place] cells in the sampl e depen ds on the locat ion of the lesio n and sampl ing techn ique. Geovani nued regul ar scree chaparrita is the best metho d of cance r preve ntion . If repor cristela cytol ogic findi ng do not corre late with physi tio and/o r histo rical findi ngs, furth er inves tigat ion is recom nam d, as clini tyrell mullins nted. Not Available [facility] (Lab) [address] [facility] [address] [address], [place], [address], 08/03/2021 19:24:02 02/17/20 24 02/17/2024 IMAGE GUIDE D PAP AND HPV REGAR DLESS image guided Pap, HPV regardless of Pap result SEE RESULT S BELOW CASE REPOR T: Cytol ogy Gynec ologi tio Repor t Case: [id number] Autho ricristiane g Provi cee: Arely Del Castillo, CONY Colle cted: 02/16 1016 Order ing Locat ion: [place] Patho [place] Recei manasa: 02/17 0315 First Scree n: Josh Lujan ed, CT Rescr een: Salvador Leary, [place] Speci men: Vivek cheatham Pap - Image d, Cervi x STATE MENT OF ADEQU ACY: Satis facto ry for evalu ation Trans forma tion zone compo nent prese nt FINAL DIAGN OSIS: Negat lino for Intra epith elial Lesjorge alberto dove or [place] (NIL) . Elect ina [...] Thinp rep Imagi ng Syste m. CLINI TIO INFOR MATIO N: Menst rual Statu s: LMP (if appli cable ): Clini tio Histo ry/Pr eviou s Pap: Type of Neopl domingo (if appli cable ): Signi fican t Clini tio Findi ngs: Other Histo ry: Hormo marisol [...] ng do not corre late with physi tio and/o r histo rical findi ngs, furth er inves tigat ion is recom nam d, as clini tyrell warra nted. Not Available [facility] (Lab) [address] [facility], [place], [address], 02/22/2024 15:56:44 08/01/20 25 08/01/2025 IMAGE GUIDE D PAP AND HPV REGAR DLESS image guided Pap, HPV regardless of Pap result SEE RESULT S BELOW CASE REPOR T: Cytol ogy Gynec ologi tio Repor t Case: [id number] Autho amy caputo Provi cee: Lamay , Arely C, SEISMOGRAPH CHIEF Colle cted: 08/01 1349 Order ing Locat ion: [place] Patho [place]ung Recetrudi manasa: 08/02 0151 First Vivek n: Salvador Leary, CT Speci men: Vivek cheatham Pap - Image d, Cervi x STATE MENT OF ADEQU ACY: Satis facto ry for evalu ation Trans forma tion zone compo nent prese nt Parti ally obscu ring infla mmati on prese nt. ----- ----- ----- ----- ----- ----- ----- ----- ----- ----- ----- ----- ----- ----- ----- ----- ----- ---- FINAL DIAGN OSIS: Negat lino for Intra epith elial Lesjorge alberto dove or [place] (NIL) . Elect ina joseph by Salvador Leary, CT on 025 at 0759 CDT ----- ----- ----- ----- ----- ----- ----- [...] Thinp rep Imagi ng Syste m. CLINI TIO INFOR MATIO N: Menst rual Statu s: LMP (if appli cable ): Clini tio Histo ry/Pr eviou s Pap: Type of Neopl domingo (if appli cable ): Signi fican t Clini tio Findi ngs: Other Histo ry: Hormo marisol [...] ng do not corre late with physi tio and/o r histo rical findi ngs, furth er inves tigat ion is recom nam d, as clini tyrell warra nted. Not Available [facility] (Lab) [address], [place], [address], 08/03/2025 09:04:09 08/01/20 21 08/01/2021 US, emanuel glass al No observ ation record ed. [facility] [address], [place], [address], 08/05/2021 17:01:44 08/01/20 21 08/01/2021 , earlene amezquita No observ ation record ed. [facility] [address], [place], [address], 08/01/2021 17:08:35 08/01/2008/01/2021 US, emanuel glass al No observ ation record ed. [facility] [address], [place], [address], 08/01/2021 17:08:44 Result Notes None recorded. Problems Name Problem SNOMED Code Status Onset Date Resolution Date Notes Provider Name and Address Organization Details Recorded Time Dysfunct ional uterine bleeding Completed 201007/29/2021 DUB;Vicenta julian ID: 0001 Kari Najera [facility] 17:15:12 Nausea [id number] Completed 201007/29/2021 Nausea alone;Pr actice ID: 0001 Kari Najera [facility] 17:16:08 Dysfunct ional uterine bleeding Completed 201008/15/2012 Other disorder s of menstrua tion and other abnormal bleeding from female genital tract;Re corded Elsewher e: No Locat ion: [facility] S ource: [employer] Engineer luz: N Vicentati ce ID: 0001 Petr lable Time: 03:30:00 PM Kari Najera [facility] 17:15:12 Speciali zed medical examinat ion Completed 201108/15/2012 Gynecolo gical Examinat ion;Toni rded Elsewher e: No Locat ion: [facility] S ource: [employer] Engineer luz: N Vicentati ce ID: 0001 Petr lable Time: 11:30:00 AM Kari sumner [facility] 17:16:34 Screenin g for malignan t neoplasm of cervix Completed 201107/29/2021 Pap Smear;Pr actice ID: 0001 Kari Najera [facility] 17:16:26 Malaise and fatigue [id number] Completed 201207/29/2021 Fatigue And Malaise; Practice ID: 0001 Kari Najera [facility] 17:16:04 Female genital organ symptoms [id number] Completed 201207/29/2021 Unspecif ied symptom associat ed with female genital organs;Mary Anne daugherty ID: 0001 Kari Reinaldo sumner, [facility] 17:15:17 Speciali zed medical examinat ion Completed 201207/29/2021 Gynecolo gical Examinat ion;Toni rded Elsewher e: No Locat ion: [facility] S ource: [employer] Applications Engineer luz: N Practi ce ID: 0001 Petr lable Time: 03:00:00 PM Kari Najera [facility], [facility] 17:16:34 Breast lump [id number] Completed 201307/29/2021 Breast Lump Or Mass;Rec orded Elsewher e: No Locat ion: [facility] S ource: [employer] Engineer luz: Y Practi ce ID: 0001 Petr lable Time: 04:30:00 PM Kari Najera [facility], [facility] 17:14:35 Increase d frequenc y of urinatio n [id number] Completed 201307/29/2021 Urinary frequenc y;Record ed Elsewher e: No Locat ion: [facility] S ource: [employer] Engineer luz: N Practi ce ID: 0001 Petr lable Time: 02:00:00 PM Kari Najera taisha, [facility] 17:15:59 Adult health examinat ion Completed 201307/29/2021 ROUTINE MEDICAL EXAM;Rec orded Elsewher e: No Locat ion: [facility] S ource: [employer] Engineer luz: N Practi ce ID: 0001 Petr lable Time: 02:00:00 PM Kari Najera [facility], [facility] 17:14:08 Clinical finding Completed 201507/29/2021 Presence of (intraut erine) contrace ptive device;R ecorded Elsewher e: No Locat ion: [facility] S ource: [employer] Engineer luz: N Practi ce ID: 0001 Petr lable Time: 12:45:00 PM Kari sumner, [facility] 17:14:38 Insertio n of intraute rine contrace ptive device Completed 201507/29/2021 Encounte r for insertio n of intraute rine contrace ptive device;R ecorded Elsewher e: No Locat ion: [facility] S ource: [facility] Presbyteriano luz: N Practi ce ID: 0001 Petr lable Time: 12:45:00 PM Kari sumner, [facility] 17:16:02 Microsco pic hematuri a [id number] Completed 201507/29/2021 Other microsco pic hematuri a;Practi ce ID: 0001 Kari sumner, [facility] 17:16:06 Surveill ance of contrace ption Completed 201507/29/2021 Encounte r for surveill ance of contrace ptives, unspecif ied;Prac julian ID: 0001 Kari sumner, [facility] 17:16:[address] Concept Completed 201607/29/2021 Encntr for general adult medical exam w/o abnormal findings ;Recorde d Elsewher e: No Locat ion: [facility] S ource: [facility] Presbyteriano luz: N Practi ce ID: 0001 Petr lable Time: 09:30:00 AM Kari sumner, [facility] 17:16:30 Removal of intraute rine device Completed 201607/29/2021 Encounte r for removal of intraute rine contrace ptive device;R ecorded Elsewher e: No Locat ion: [facility] S ource: [employer] Applications Engineer luz: N Practi ce ID: 0001 Petr lable Time: 08:45:00 AM Kari Najera taisha [facility] 17:16:22 Lesion of ovary Completed 201607/29/2021 Other ovarian cyst, right side;Rec orded Elsewher e: No Locat ion: [facility] S ource: [employer] Engineer luz: N Practi ce ID: 0001 Petr lable Time: 01:30:00 PM Kari sumner [facility] 17:14:55 Cyst of ovary Completed 201607/29/2021 Unspecif ied ovarian cyst, unspecif ied side;Rec orded Elsewher e: No Locat ion: [facility] S ource: [employer] Engineer luz: N Practi ce ID: 0001 Petr lable Time: 01:30:00 PM Kari Najera taisha [facility] 17:14:40 Right lower quadrant pain [id number] Completed 201607/29/2021 Right lower quadrant pain;Pra ctice ID: 0001 Kariblas sumner, [facility] 17:16:24 Pelvic and perineal pain [id number] Completed 201607/29/2021 Pelvic and perineal pain;Pra ctice ID: 0001 Kari Najera taisha, [facility] 17:16:12 Hypothyr oidism [id number] Completed 201607/29/2021 Hypothyr oidism, unspecif ied;Prac julian ID: 0001 Kariblas sumner, [facility] 17:15:57 Depressi ve disorder [id number] Completed 201607/29/2021 Major depressi ve disorder , single episode, unspecif ied;Prac julian ID: 0001 Kari Najera taisha [facility] 17:15:09 Clinical finding Completed 201607/29/2021 Obesity, unspecif ied;Toni rded Elsewher e: No Locat ion: [facility] S ource: [employer] Engineer luz: N Practi ce ID: 0001 Petr lable Time: 01:45:00 PM Kari sumner, [facility] 17:15:29 Acute vaginiti s [id number] Completed 201607/29/2021 Acute vaginiti s;Practi ce ID: 0001 Kari Najera [facility], [facility] 17:14:06 Pregnanc y test negative [id number] Completed 201707/29/2021 Encounte r for pregnanc y test, result negative ;Practic e ID: 0001 Kari sumner, [facility] 17:16:18 Finding of menstrua l bleeding Completed 201707/29/2021 Excessiv e and frequent menstrua tion with regular cycle;Pr actice ID: 0001 Kari Najera [facility], [facility] 17:15:23 Finding of pattern of menstrua l cycle Completed 201707/29/2021 Excessiv e and frequent menstrua tion with irregula r cycle;Pr actice ID: 0001 Kari Najera [facility], [facility] 17:15:25 Finding of regulari ty of menstrua l cycle Completed 201707/29/2021 Irregula r menstrua tion, unspecif ied;Prac julian ID: 0001 Kari Najera [facility], [facility] 17:15:27 Female genitali a finding Completed 201707/29/2021 Foreign body in vulva and vagina, sequela; Practice ID: 0001 Kari sumner [facility] 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 17:16:11 Pain in female genitali a Completed 201707/29/2021 Dysmenor xander, unspecif ied;Prac julian ID: 0001 Kari sumner, [facility] 17:15:19 Steriliz ation procedur e Completed 201707/29/2021 Encounte r for steriliz ation;Pr actice ID: 0001 Kariblas sumner, [facility] 17:16:36 Procedur e on genitour inary system Completed 201707/29/2021 Encounte r for surgical aftcr followin g surgery on the sys;Prac julian ID: 0001 Akri Najera taisha, [facility] 17:16:20 Postoper ative care Completed 201707/29/2021 Encounte r for surgical aftcr followin g surgery on the sys;Prac julian ID: 0001 Kari Najera taisha [facility] 17:16:15 Urinary tract infectio us disease [id number] Completed 201807/29/2021 Urinary tract infectio n, site not specifie d;Practi ce ID: 0001 Kariblas sumner, [facility] 17:16:[address] Concept Completed 201807/29/2021 Encntr for stitch bonding machine tender exam (general ) (routine ) w/o abn findings ;Practic e ID: 0001 Kari Najera taisha [facility] 17:16:32 Screenin g for malignan t neoplasm of rectum Completed 201807/29/2021 Encounte r for screenin g for malignan t neoplasm of rectum;P ractice ID: 0001 [facility] 17:16:28 Evaluati on finding Completed 201807/29/2021 Hematuri a, unspecif ied;Toni rded Elsewher e: No Locat ion: [facility] S ource: [employer] Applications Engineer luz: N Practi ce ID: 0001 Petr lable Time: 08:15:00 AM [facility] 17:15:14 Problem Notes None recorded. Procedures Surgical History Date Name Laterality Status Provider Name and Address Organization Details Recorded Time 07/18/20 25 excision of bilateral breasts completed Maite Wuney [facility] 08/01/2025 12:42:40 07/30/20 21 Date of Last Pap Smear completed [facility] 07/30/2021 09:55:09 07/30/20 18 Tubal Ligation completed [facility] 07/29/2021 17:34:29 02/29/20 18 endometrial biopsy completed [facility] 07/29/2021 17:33:40 08/15/20 12 Breast Biopsy completed [facility] 07/29/2021 17:32:59 12/30/19 03 cholecystectomy completed [facility] 07/29/2021 17:34:42 11/29/19 02 Colposcopy completed [facility] 07/29/2021 17:20:03 Imaging Results None recorded. Procedure Notes None recorded. Medical Equipment None Reported. Allergies Allergen ID Allergen Name Allergen Category Reaction Reaction Severity Criticality Documentation Date Start Date Code Code System Note Provider Name and Address Organization Details Recorded Time 22933 ketorolac medicatio n Not available Not available Not available 07/30/2021 51669 RxNorm Kari Najera [facility], [place] - [facility] 09:54:01 Medications Name Sig Start Date Stop Date Status Note LastModified by Organization Details LastModified Time amoxicill in 500 mg capsule TAKE 1 CAPSULE BY MOUTH THREE TIMES DAILY UNTIL GONE 02/16 completed Not Available Not Available Not Available fluconazo le 100 mg tablet TAKE 1 TABLET BY MOUTH ONCE DAILY active Not Available Not Available No t Available levothyro xine 175 mcg tablet TAKE 1 TABLET BY MOUTH ONCE DAILY active Not Available Not Available No t Available levothyro xine 137 mcg tablet TAKE 1 TABLET BY MOUTH ONCE DAILY active Not Available Not Available No t Available nystatin 100,000 unit/mL oral suspensio n SWISH AND SPIT 4ML BY MOUTH FOUR TIMES DAILY FOR 7 DAYS. ADMINIST ER 1/2 OF DOSE IN EACH SIDE OF THE MOUTH. active Not Available Not Available No t Available doxycycli ne hyclate 100 mg capsule TAKE 1 CAPSULE BY MOUTH TWICE DAILY active Not Available Not Available No t Available fluconazo le 150 mg tablet TAKE 1 TABLET BY MOUTH ONCE DAILY DIRECTED active Not Available Not Available No t Available hydrocodo ne 5 mg-acetam inophen 325 mg tablet TAKE 1 TABLET BY MOUTH EVERY 6 HOURS NEEDED FOR PAIN active Not Available Not Available No t Available ondansetr on HCl 8 mg tablet TAKE 1 TABLET BY MOUTH EVERY 8 HOURS NEEDED FOR NAUSEA/E MESIS active Not Available Not Available No t Available ibuprofen 200 mg capsule take 1 capsule by oral route every 6 hours as needed 09/20 completed Prescrib ed Elsewher e: Yes Loca tion: [facility] odify By: efraín gee DateTime : 10/29/20 11 03:30:00 PM Not Available Not Available Not Available doxycycli ne hyclate 50 mg capsule take 1 capsule by oral route every 12 hours 02/07 completed Prescrib ed Elsewher e: Yes Loca tion: [facility] odify By: mike armendariz DateTime : 04/13/20 16 01:00:00 PM Not Available Not Available Not Available Pyridium 200 mg tablet take 1 tablet by oral route 3 times every day after meals 07/30 completed Prescrib ed Elsewher e: No Locat ion: [facility] M odify By: awildarich tz Encou nter DateTime : 02/10/20 08:15:00 AM Not Available Not Available Not Available diphenoxy late-atro pine 2.5 mg-0.025 mg tablet TAKE 1 TABLET BY MOUTH 4 TIMES DAILY NEEDED FOR DIARRHEA /LOOSE STOOLS active Not Available Not Available No t Available metronida zole 500 mg tablet TAKE 1 TABLET BY MOUTH EVERY 8 HOURS FOR 10 DAYS active Not Available Not Available No t Available valacyclo vir 500 mg tablet TAKE 1 TABLET BY MOUTH ONCE DAILY active Not Available Not Available No t Available ciproflox acin 500 mg tablet TAKE 1 TABLET BY MOUTH EVERY 12 HOURS FOR 10 DAYS 08/01 completed Not Available Not Available Not Available tramadol 50 mg tablet TAKE 1 TABLET BY MOUTH EVERY 6 HOURS NEEDED FOR PAIN active Not Available Not Available No t Available vancomyci n 125 mg capsule TAKE 1 CAPSULE BY MOUTH EVERY 6 HOURS active Not Available Not Available No t Available lidocaine -prilocai ne 2.5 %-2.5 % topical cream APPLY CREAM TOPICALL Y TO AFFECTED AREA SEE ADMINIST RATION INSTRUCT IONS active Not Available Not Available No t Available nystatin- triamcino lone 100,000 unit/gram -0.1 [...] Elsewher e: No Locat ion: [facility] M odify By: mike armendariz DateTime : 12/17/19 17 02:43:41 PM Not Available Not Available Not Available meclizine 25 mg tablet TAKE 1 TABLET BY MOUTH THREE TIMES DAILY NEEDED FOR DIZZINES S FOR 10 DAYS active Not Available Not Available No t Available Soma 350 mg tablet take 1 tablet by oral route 3 times every day and at bedtime 04/13 completed Prescrib ed Elsewher e: No Locat ion: [facility] odify By: daryl Hughes r DateTime : 12/26/19 16 05:30:00 PM Not Available Not Available Not Available Euthyrox 150 mcg tablet TAKE 1 TABLET BY MOUTH ONCE DAILY active Not Available Not Available No t Available cephalexi n 500 mg capsule TAKE 1 CAPSULE BY MOUTH EVERY 12 HOURS active Not Available Not Available No t Available nystatin 100,000 unit/gram topical cream 02/16 completed Not Available Not Available Not Available dexametha sone 4 mg tablet TAKE 2 TABLETS BY MOUTH TWICE DAILY THE DAY BEFORE, DAY OF, AND DAY AFTER TREATMEN T WITH DOCETAXE L active Not Available Not Available No t Available Synthroid 88 mcg tablet take 1 tablet by oral route every day 04/13 completed Prescrib ed Elsewher e: Yes Loca tion: [facility] odify By: daryl Hughes r DateTime : 09/20/20 14 02:00:00 PM Not Available Not Available Not Available Synthroid 50 mcg tablet take 1 tablet by oral route every day 02/16 completed Prescrib ed Elsewher e: Yes [facility] By: mike armendariz DateTime : 04/20/20 16 03:15:00 PM Not Available Not Available Not Available Adipex-P 37.5 mg capsule take 1 capsule by oral route every day before breakfas t 09/20 completed Prescrib ed Elsewher e: Yes Loca tion: Rachel kim [facility] odify By: efraín gee DateTime : 03/15/20 14 04:30:00 PM Not Available Not Available Not Available methylpre dnisolone 4 mg tablets in a dose pack TAKE BY MOUTH DIRECTED ON INSIDE OF PACKAGE active Not Available Not Available No t Available Vitamin D2 1,250 mcg (50,000 unit) capsule take 1 capsule (48605VF ITS) by oral route every week 03/15 completed Prescrib ed Elsewher e: No [facility] odify By: isabel armendariz DateTime : 08/31/20 13 09:42:50 AM Not Available Not Available Not Available sertralin e 50 mg tablet TAKE 1 TABLET BY MOUTH ONCE DAILY active Not Available Not Available No t Available metoclopr amide 10 mg tablet TAKE 1/2 (ONE-DOC F) TABLET BY MOUTH EVERY 6 HOURS NEEDED FOR NAUSEA AND VOMITING active Not Available Not Available No t Available amoxicill in 500 mg-potass ium clavulana te 125 mg tablet TAKE 1 TABLET BY MOUTH EVERY 12 HOURS FOR 7 DAYS 02/16 completed Not Available Not Available Not Available Bactrim DS 800 mg-160 mg tablet take 1 tablet by oral route every 12 hours 02/13 completed Prescrib ed Elsewher e: No Locat ion: [facility] odify By: andrew armendariz DateTime : 02/10/20 19 08:15:00 AM Not Available Not Available Not Available Wellbutri n XL 300 mg 24 hr tablet, extended release take 1 tablet by oral route every day 02/07 completed Prescrib ed Elsewher e: No Locat ion: [facility] odify By: mike armendariz DateTime [...] Prescrib ed Elsewher e: No Locat ion: [facility] odify By: mike armendariz DateTime : 02/08/20 18 01:45:00 PM Not Available Not Available Not Available Lo Loestrin Fe 1 mg-10 mcg (24)/10 mcg (2) tablet take 1 tablet by oral route every day 01/04 completed Prescrib ed Elsewher e: No Locat ion: [facility] odify By: mike armendariz DateTime : 09/07/20 [...] Updated DateTime 02/17/2024 160.02 cm 45.5 kg/m2 268294.24 g 136/91 mm[Hg] Sabi Roca [facility] 02/17/2024 10:12:21 Date Recorded Body height Body mass index (BMI) Body weight Systolic And Diastolic Provider Name and Address Organization Details Last Updated DateTime 07/30/2021 161.93 cm 46.7 kg/m2 546446.94 g 127/84 mm[Hg] Kari Najera [facility] 07/30/2021 09:53:20 Date Recorded Body height Body mass index (BMI) Body weight Systolic And Diastolic Provider Name and Address Organization Details Last Updated DateTime 08/01/2025 160.02 cm 42.2 kg/m2 085274.98 g 130/86 mm[Hg] Maite Sawant [facility] 08/01/2025 12:38:29 Social History Question Answer Notes LastModified by Organizat ion Details LastModified Time Tobacco Smoking Status Never Smoker Kari sumner [facility] 07/30/2021 09:56:22 If You Are , What Was Your Level Of Alcohol Consumption Prior To ? None Information not available 07/30/2021 Are You Blind Or Do You Have Difficulty Seeing? No [email or web address] Information n ot available 07/30/2021 What Is Your Level Of Caffeine Consumption? Occasional [email or web address] Information not available 07/30/2021 In The 14 Days Before Symptom Onset, Have You Had Close Contact With A Laboratory-confirm ed COVID-19 While That Case Was Ill? No [email or web address] Information n ot available 07/30/2021 In The 14 Days Before Symptom Onset, Have You Had Close Contact With A Person Who Is Under Investigation For COVID-19 While That Person Was Ill? No [email or web address] Information not available 07/30/2021 Have You Been To An Area Known To Be High Risk For COVID-19? No [email or web address] Information not available 07/30/2021 Are You Deaf Or Do You Have Serious Difficulty Hearing? No Information not available 07/30/2021 What Type Of Diet Are You Following? REGULAR Information n ot available 07/30/2021 Do You Use Your Seat Belt Or Car Seat Routinely? Yes [email or web address] Information not available 07/30/2021 Do You Have Smoke And Carbon Monoxide Detectors In Your Home? Yes [email or web address] Information not available 07/30/2021 Do You Use Sunscreen Routinely? Yes [email or web address] Information not available 07/30/2021 Has Tobacco Cessation Counseling Been Provided? No [email or web address] Information not available 07/30/2021 Sex: Unknown Functional Status Question Answer Note LastModified by Organizat ion Details LastModified Time Do you use any illicit or recreational drugs? No [email or web address] Information not available 07/30/2021 Do you or have you ever used any other forms of tobacco or nicotine? No [email or web address] Information not available 07/30/2021 What is your level of alcohol consumption? Occasional [email or web address] Information not available 07/30/2021 Are you able to walk independently without assistance or assistive devices? YESWOREST [email or web address] Information not available 07/30/2021 What is your exercise level? Occasional [email or web address] Information not available 07/30/2021 Mental Status Question Answer Note LastModified by Organization D etails LastModified Time Do you feel stressed (tense, restless, nervous, or anxious, or unable to sleep at night)? [id number] [email or web address] Information not available 07/30/2021 Family History Relationship Description Onset Age of this Age Resolved Age Notes LastModified by Organization Details LastModified Time Maternal Aunt Malignant neoplasm of colon [email or web address] Not available 07/29 17:29:59 Maternal Aunt Heart disease [email or web address] Not available 07/29 17:30:47 Paternal Grandmother Malignant neoplasm of breast [email or web address] Not available 07/29 17:30:21 Maternal Grandmother Malignant neoplasm of breast [email or web address] Not available 07/29 17:30:21 Maternal Grandmother Malignant neoplasm of liver Not available 07/29 17:32:14 Mother Heart disease Not available 07/29 17:30:47 Mother Hypertensive disorder Not available 07/29 17:31:17 Maternal Uncle Heart disease [email or web address] Not available 07/29 17:30:47 Sister Hypertensive disorder [email or web address] Not available 07/29 17:31:17 Sister Diabetes mellitus [email or web address] Not available 07/29 17:31:31 Father Diabetes mellitus Not available 07/29 17:31:42 Father Hypertensive disorder [email or web address] Not available 07/29 17:32:24 Notes:Father: Diabetes melli [...] Allergies/Reactions Y Blood Transfusion N Breast Cancer Y Dermatologic Disorders N Lung Disease N Defects [...] Mammogram Date of LMP 07/21/2021 STIs/STDs Y HPV Vaccine N Colposcopy 11/29/2001 Current Control Method Tubal Ligat ion Date of Last Colonoscopy Sexually Active? Y Menses Monthly N Date of Last Pap Smear 07/30/2021 Sexual Problems? N Desired Control Method Ablation LMP Approximate 11/29/2001 Obstetrics History GPAL:G 6 P 3 0 3 3 Type Value Full Term 3 Induced 1 Spontaneous 2 Living 3 Total 6 Past Encounters Encounter ID Performer Location Encounter Start Date Encounter Closed Date Diagnosis/Indication Diagnosis SNOMED-CT Code Diagnosis ICD10 Code Diagnosis IMO Codes Diagnosis Note [id number] Solange Ye CNM [place] [address] [address] 07/30/2021 09:41:09 07/30/2021 15:54:38 Gynecologic examination 78180116 Z01.419 Dyspareunia 20254711 N94 .10 f/u pending [id number] Austen Macario MD [place] [address] [address] 08/01/2021 16:05:54 08/01/2021 16:54:26 Dyspareunia 86597725 N94.10 [id number] ALCIDES Isaac [place] [address] [address] 02/17/2024 10:04:57 02/17/2024 10:41:21 Gynecologic examination 82848605 Z01.419 WWEBC - BTLpap updateddec lined STI screenmamm ogram order givencolon oscopy UTDroutine labs/PCPge netic testing discussed/ fam hx reviewedBP precaution s reviewedRT C in 1 yr or sooner if needed Suggested Calcium with Vitamin D daily. Patient advised to get an annual flu shot in the fall and she could obtain at [facility] or [facility] clinic. Also to obtain TDap vaccinatio n [...] email. Screening for malignant neoplasm of breast [id number] Z12.39 [id number] ALCIDES Isaac [place] [address] [address] 08/01/2025 12:16:11 08/02/2025 09:31:06 Gynecologic examination 55497629 Z01.110 [id number] [facility] - BTap - done todaySTI screen - declinedCo ivelisse cancer screening - UTDRoutine labs - UTD/PCPRTC in 1 yr or sooner if needed Suggested Calcium with Vitamin D daily. Patient advised to get an annual flu shot in the fall and she could obtain at local pharmacy. Also to obtain TDap vaccinatio n if [...] consult advised. All questions have been answered. Malignant neoplasm of breast [id number] C50.912 [id number] recent double mastectomy and starting chemo again soon Health Concerns Section Related Observation LastModified by Organization Detai ls LastModified Time None Recorded Concern Status LastModified by Organization Details LastModified Time None Recorded Advance Directives Directive None Recorded Payers Insurance Date Sequence Insurance Name Policy Number Policy Castro Covered Member ID Castro Member ID Guarantor Name 08/01/2025 1 [employer] - DOS PRIOR TO 21 - [facility] [employer] [id number] Austin Mckeon [id number] OI Austin Dong 08/01/2025 1 [employer] - [facility] [employer] [id number] Austin Dong [id number] OI Austin Dong Notes Date Note Type Note Provider Name and Address Organization Details Recorded Time 1 text/html Annual GYNReported by PatientGenitourinary symptomsFor menstrual cycle, patient reportsnormal menses. For urinary symptoms, patient reportsno hematuriaandno incontinence. For vulva, patient reportsno genital lesion. For vagina, patient reportsnormal vaginal discharge.Breast symptomsFor breast, patient reportsno breast pain,no breast lump, andno nipple discharge.Endocrine symptomsFor sexual complaints, patient reportsno sexual complaints,no pain during intercourse, andnormal libido. For menopausal symptoms, patient reportsno menopausal symptomsandnormal vaginal lubrication.Psychological symptomsFor psychological symptoms, patient reportsno depression,no anxiety, andno pmdd.Preventative measuresFor preventive measures, patient reportsencourage self breast examination,encourage regular exercise,encourage no tobacco use, andencourage regular mammograms starting age 40.stopped wearing tampons due to discomfort having some pain with intercourse since november, feels different inside and also cant wear cups againROS as noted in the HPI Solange Ye, [address], [place], [address], [facility] 07/30/2021 10:58:55 4 text/html Annual GYNReported by PatientGenitourinary symptomsFor menstrual cycle, patient reportsnormal menses. For urinary symptoms, patient reportsno hematuriaandno incontinence. For vulva, patient reportsno genital lesion. For vagina, patient reportsnormal vaginal discharge.Breast symptomsFor breast, patient reportsno breast pain,no breast lump, andno nipple discharge.ContraceptionFo r current contraception, patient reportssatisfied with current contraceptionandtubal ligation.Endocrine symptomsFor sexual complaints, patient reportsno sexual complaints,no pain during intercourse, andnormal libido. For menopausal symptoms, patient reportsno menopausal symptomsandnormal vaginal lubrication.Psychological symptomsFor psychological symptoms, patient reportsno depression,no anxiety, andno pmdd.Preventative measuresFor preventive measures, patient reportsencourage self breast examination,encourage regular exercise,encourage no tobacco use, andencourage regular mammograms starting age 40.WWEh/o BTL/ablationlight periods since ablationh/o abnormal pap in 2021 - no procedures requiredlast pap 07/2021 - normalmammogram last olonoscopy done 2021, unsure when advised to repeat ALCIDES Isaac [address], [place], [address], [facility] 02/17/2024 10:36:51 5 text/html Annual GYNReported by PatientGenitourinary symptomsFor urinary symptoms, patient reportsno hematuriaandno incontinence. For vulva, patient reportsno genital lesion. For vagina, patient reportsnormal vaginal discharge.Breast symptomsFor breast, patient reportsno breast pain,no breast lump, andno nipple discharge.ContraceptionFo r current contraception, patient reportssatisfied with current contraceptionandtubal ligation.Endocrine symptomsFor sexual complaints, patient reportsno sexual complaints,no pain during intercourse, andnormal libido. 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 Completed chemo and then double mastectomy 07/18/2025. Planning to start chemo again soon (16 rounds per pt).colonoscopy UTD has support of family that lives close to her, hoping to be able to go to [place] with family this fall for a trip ALCIDES Isaac [address], [place], [address], [place] [facility] 08/02/2025 09:29:20 OBGyn Episode Ob Episode Information Episode Created Date Number of Fetuses Patient Bloodtype Patient rh Status Prepregnancy Weight lbs Domestic Partner Domestic Partner Phone Father Name Crop Adjuster Status 07/29/20 21 1 CLOSED Fetus Data First Name Last Name Admitted to NICU Weight (g) Sex Living Outcome Pediatric Complications Fetus ID Race Codes Race Delivery Type , Induced [id number] Solomon Calculation Initial Solomon Date Initial Exam [...] Domestic Partner Domestic Partner Phone Father Name Crop Adjuster Status 07/29/20 21 1 CLOSED Fetus Data First Name Last Name Admitted to NICU Weight (g) Sex Living Outcome Pediatric Complications Fetus ID Race Codes Race Delivery Type 3373.36 3704 F Full Term 28828 Vaginal Delivery Solomon Calculation Initial Solomon Date [...] Domestic Partner Domestic Partner Phone Father Name Crop Adjuster Status 07/29/20 21 1 CLOSED Fetus Data First Name Last Name Admitted to NICU Weight (g) Sex Living Outcome Pediatric Complications Fetus ID Race Codes Race Delivery Type 3770.25 6704 M Full Term 66084 Vaginal Delivery Solomon Calculation Initial Solomon Date [...] Domestic Partner Domestic Partner Phone Father Name Crop Adjuster Status 07/29/20 21 1 CLOSED Fetus Data First Name Last Name Admitted to NICU Weight (g) Sex Living Outcome Pediatric Complications Fetus ID Race Codes Race Delivery Type , Spontane ous 87429 Solomon Calculation Initial Solomon Date Initial Exam [...] Domestic Partner Domestic Partner Phone Father Name Crop Adjuster Status 07/29/20 21 1 CLOSED Fetus Data First Name Last Name Admitted to NICU Weight (g) Sex Living Outcome Pediatric Complications Fetus ID Race Codes Race Delivery Type 4110.45 0704 M Full Term 15525 Vaginal Delivery Solomon Calculation Initial Solomon Date [...] Domestic Partner Domestic Partner Phone Father Name Crop Adjuster Status 07/29/20 21 1 CLOSED Fetus Data First Name Last Name Admitted to NICU Weight (g) Sex Living Outcome Pediatric Complications Fetus ID Race Codes Race Delivery Type , Spontane ous 05288 Solomon Calculation Initial Solomon Date Initial Exam [...]
--- OUTSIDE RECORDS SUMMARY | 2025-10-08 06:21 | XMS_ITS | Clinical Summary ---
Author Organization [facility]j Rubi Address [address] [place] [address] Care Team Providers Care Captain Waiter Name Role Phone Trey Shen MD Primary Care Provider [phone] Allergies Active Allergy Reactions Criticality Noted Date [...] with Docetaxel. 12 Tablet 2 5 Active diphenoxylate- atropine 2.5 mg-0.025 mg tablet Take 1 Tablet by mouth 4 times daily as needed for Diarrhea/Loose Stools. 30 Tablet 5 Active cephALEXin (KEFLEX) 500 mg capsule Take 1 Capsule by mouth 2 times daily. 5 Active tamoxifen (NOLVADEX) 20 mg tablet Take 1 Tablet (20 mg) by mouth daily. 90 Tablet 2 5 Active ondansetron (ZOFRAN) 8 mg Tablet Take 1 Tablet (8 mg) by mouth every 8 hours as needed for Nausea/Emesis. 30 Tablet 1 5 Active Active Problems No known active problems Encounters Date Type Department Care Team Description 10/08/2025 Orders Only [facility] Oncology and Hematology - [place] [address] [place] [address] Neal Mena MD Malignant neoplasm of upper-outer quadrant of left breast in female, estrogen receptor positive (CMS/HCC) 09/27/2025 Orders Only [facility] [address] [place] [address] Neal Mena MD 09/26/2025 8:30 AM CDT Office Visit [facility] Oncology and Hematology [facility] [address] [place] [address] Neal Mena MD Malignant neoplasm of upper-outer quadrant of left breast in female, estrogen receptor positive (CMS/HCC) (Primary Dx) 09/24/2025 Orders Only [facility] Oncology and Hematology [facility] [address] [place] [address] Neal Mena MD Malignant neoplasm of upper-outer quadrant of left breast in female, estrogen receptor positive (CMS/HCC) 09/19/2025 External Device Data STL ABSTRACTION Provider, Abstract 09/18/2025 External Device Data STL ABSTRACTION Provider, Abstract 09/14/2025 Abstract [facility] Oncology and Hematology [facility] [address] [place] [address] Neal Mena MD 09/10/2025 Orders Only [facility] Oncology and Hematology [facility] [address] [place] [address] Neal Mena MD Malignant neoplasm of upper-outer quadrant of left breast in female, estrogen receptor positive (CMS/HCC) 09/04/2025 Abstract [facility] Oncology and Hematology - [place] [address] [place] [address] Neal Mena MD 08/27/2025 Orders Only [facility] Oncology and Hematology - [place] [address] [place] [address] Neal Mena MD Malignant neoplasm of upper-outer quadrant of left breast in female, estrogen receptor positive (CMS/HCC) 08/23/2025 Abstract [facility] Oncology and Hematology - [place] [address] [place] [address] Neal Mena MD 08/22/2025 8:30 AM CDT Office Visit [facility] Oncology and Hematology - [place] [address] [place] [phone] Neal Mena MD Malignant neoplasm of upper-outer quadrant of left breast in female, estrogen receptor positive (CMS/HCC) (Primary Dx) 08/22/2025 Orders Only [facility] Oncology and Hematology - [place] [address] [place] [address] Neal Mena MD 08/14/2025 External Device Data STL ABSTRACTION Provider, Abstract 08/14/2025 Orders Only [facility] Oncology and Hematology - [place] [address] [place] [address] Neal Mena MD 08/13/2025 Orders Only [facility] Oncology and Hematology - [place] [address] [place] [address] Neal Mena MD Malignant neoplasm of upper-outer quadrant of left breast in female, estrogen receptor positive (CMS/HCC) 08/09/2025 Orders Only [facility] Oncology and Hematology - [place] [address] [place] [phone] Neal Mena MD Malignant neoplasm of upper-outer quadrant of left breast in female, estrogen receptor positive (CMS/HCC) (Primary Dx) 07/30/2025 Orders Only [facility] Oncology and Hematology - [place] [address] [place] [address] Neal Mena MD Malignant neoplasm of upper-outer quadrant of left breast in female, estrogen receptor positive (CMS/HCC) 07/25/2025 9:00 AM CDT Office Visit [facility] Oncology and Hematology - [place] [address] [place] [address] Neal Mena MD Malignant neoplasm of upper-outer quadrant of left breast in female, estrogen receptor positive (CMS/HCC) (Primary Dx) 07/25/2025 Orders Only [facility] Oncology and Hematology - [place] [address] [place] [address] Neal Mena MD 07/16/2025 Orders Only [facility] Oncology and Hematology - [place] [address] [place] [address] Neal Mena MD Malignant neoplasm of upper-outer [...] on file Legal Sex Female 5:43 AM STORE PROMOTER Gender Identity Not on file Sexual Orientation Not on file Last Filed Vital Signs Vital Sign Reading Time Taken Comments Blood Pressure 112/91 09/26/2025 8:36 AM CDT Pulse 78 09/26/2025 8:33 AM CDT Temperature 36.1 C (96.9 F) 09/26/2025 8:33 AM CDT Respiratory Rate 15 09/26/2025 8:33 AM CDT Oxygen Saturation 95% 09/26/2025 8:33 AM CDT Inhaled Oxygen Concentration - - Weight 112.6 kg (248 lb 3.2 oz) 09/26/2025 8:33 AM CDT Height 162.6 cm (5' 4) 02/02/2025 1:46 PM STORE PROMOTER Body Mass Index 42.6 02/02/2025 1:46 PM STORE PROMOTER Plan of Treatment Upcoming Encounters Date Type Department Care Team (Late st Contact Info) Description 11/07/2025 9:30 AM STORE PROMOTER Office Visit [facility] Oncology and Hematology [facility] [address] [facility] [address] [place] [address] Neal Mena MD [address] [facility] [address] [place] [address] Health Maintenance Due Date Last Done Comments Pre-Diabetes and Diabetes Screening 1978 DTAP/TDAP/TD VACCINES (1 - Tdap) 1997 HEPATITIS B VACCINES (1 of 3 - 19+ 3-dose series) 1997 HPV/Cotest (21-29) 1999 HPV/Cotest (30-65) 02/05/2008 BREAST CANCER SCREENING 2018 COLORECTAL SCREENING 2023 Colorectal Cancer Screening 2023 FIT-DNA Q 3 years 2023 FIT/FOBT Q 1 year 2023 Flex Sig/CT Colonography Q 5 years 2023 INFLUENZA VACCINE (#1) 2025 CERVICAL CANCER SCREENING 08/01/2028 PAP SMEAR 08/01/2028 08/01/2025, 02/17/2024 Procedures Procedure Name Priority Date/Time Associated Diagnosis Comments COMPREHENSIVE METABOLIC PANEL Routine 09/26/2025 12:18 PM CDT CBC WITH AUTODIFFERENTIAL Routine 2024 3:40 PM CDT ECHO COMPLETE Routine 08/13/2025 11:09 AM CDT CHG CA 15 3 Routine 08/08/2025 12:59 PM CDT BASIC METABOLIC PANEL Routine 07/25/2025 11:58 AM CDT COMPREHENSIVE METABOLIC PANEL Routine 07/25/2025 11:56 AM CDT from Last 3 Months Results * COMPREHENSIVE METABOLIC PANEL (09/26/2025 12:18 PM CDT) Only the most recent of2 resultswithin the time period is included. Blood us Neal Mena MD CHEMISTRY ORDERABLES Final Resu lt * CBC WITH AUTODIFFERENTIAL (08/22/2025 3:40 PM CDT) Blood us Neal Mena MD HEMATOLOGY ORDERABLES Final Res ult * ECHO COMPLETE (08/13/2025 11:09 AM CDT) us Neal Mena MD ECHO ORDERABLES Final Result * CHG CA 15 3 (08/08/2025 12:59 PM CDT) us Neal Mena MD CHG - LABORATORY Final Result * BASIC METABOLIC PANEL (07/25/2025 11:58 AM CDT) Blood us Neal Mena MD CHEMISTRY ORDERABLES Final Resu lt from Last 3 Months Insurance [facility] Care Teams Captain Waiter Relationship Specialty Start Date End Date Trey Shen MD [address] [facility] [address] [place] [address] PCP - General Family Practice 05/02/25
--- OUTSIDE RECORDS SUMMARY | 2025-10-08 06:21 | XMS_ITS | Encounter Summary ---
Author Organization [facility] [employer] [facility] Address [address] [place] [address] Care Team Providers Care Instrument Lens Inspector Name Role Phone Trey Shen MD Primary Care Provider [phone] Encounter Details Date Type Department Care Team (Late st Contact Info) Description 10/08/2025 Orders Only [facility] Oncology and [facility] [address] [place] [address] Neal Mena MD [address] [place] [address] Malignant neoplasm of upper-outer quadrant of [...] on file Legal Sex Female 5:43 AM MEDIA STRATEGIST Gender Identity Not on file Sexual Orientation Not on file documented as of this encounter Plan of Treatment Upcoming Encounters Date Type Department Care Team (Late st Contact Info) Description 11/07/2025 9:30 AM MEDIA STRATEGIST Office Visit [facility] Oncology and Hematology [facility] [address] [place] [address] Neal Mena MD [address] [place] [address] documented as of this encounter Visit Diagnoses Diagnosis Malignant neoplasm of upper-outer quadrant of left breast in female, estrogen receptor positive (CMS/HCC) documented in this encounter Care Teams Instrument Lens Inspector Relationship Specialty Start Date End Date Trey Shen MD [address] [facility] [address] [place] [address] PCP - General Family Practice 05/02/25 documented as of this encounter
--- OUTSIDE RECORDS SUMMARY | 2025-10-08 06:21 | XMS_ITS | Data Portability ---
Author Organization [employer], Main Office Address [address] [place] [address] Assessment No assessment recorded. Plan of Treatment Reminders Order Date Submit Date Provider Last Modified By Organization Details Last Modified Time Details Appointments None recorded. Lab None recorded. Referral None recorded. Procedures None recorded. Surgeries None recorded. Imaging audiogram + tympanogram 2023 024 [facility], [address] [place] [address], [facility], [place], [address], 05:02:24 Medication Orders None recorded. Patient TargetsNo targets recorded. Patient Instructions Encounter Date Encounter Id Patient Instructions Last Modified By Organization Details Last Modified Time 09/13/2024 [id number] alia-hallpike test* [email or web address] Not available 03/12/2025 08:32:13 continue use of meclizine as needed for vertigo symptoms. She will see PT for [place]-Hallpike testing for possible BPPV. We will also obtain an audiogram and tympanogram for further testing. [email or web address] Not available 09/13/2024 16:04:48 Reason for Referral None Reported. Problems Name Problem SNOMED Code Status Onset Date Resolution Date Notes Provider Name and Address Organization Details Recorded Time Vertigo 575927215 Active 2023 Prince Calderon CMA null, [employer] 15:59:06 Sensorineural hearing loss 76867148 Active 2023 Prince Calderon CMA null, [employer] 16:00:48 Benign paroxysmal positional vertigo 473233417 Active [address] [facility], [facility] [address], [place], [address], [facility] 16:03:52 Problem Notes None recorded. Procedures Surgical History Date Name Laterality Status Provider Name and Address Organization Details Recorded Time 07/31/20 19 Tubal Ligation completed Prince Calderon CMA [facility] 09/13/2024 15:42:59 12/30/19 04 cholecystectomy completed Prince Calderon MACHINE OPERATOR ASSISTANT [facility] 09/13/2024 15:42:31 Imaging Results None recorded. Procedure Notes None recorded. Medical Equipment None Reported. Allergies Allergen ID Allergen Name Allergen Category Reaction Reaction Severity Criticality Documentation Date Start Date Code Code System Note Provider Name and Address Organization Details Recorded Time 51644 Toradol medicatio n palpitati ons Not available Not available 09/12/2024 69622 RxNorm Lynn Carter [facility] 12:54:34 54688 Stadol medicatio n palpitati ons Not available Not available 09/13/2024 12882 RxNorm Prince Calderon [facility] 15:38:10 Medications Name Sig Start Date [...] Not Available No t Available amoxicillin 500 mg-potassiguillermina oracio clavulanate 125 mg tablet TAKE 1 TABLET [...] Address Organization Details Last Updated DateTime 09/13/2024 645874.2 g 98 [degF] 45 kg/m2 162.56 cm Prince Calderon CMA [employer] 09/13/2024 15:37:32 Social History Question Answer Notes LastModified by Organizat ion Details LastModified Time Tobacco Smoking Status Never Smoker Lynn Raul sumner [facility] [employer] ([employer]) 09/12/2024 12:56:45 What Is Your Level Of Caffeine Consumption? Occasional Coffee [email or web address] Information not available 09/13/2024 Sex: Unknown Functional Status Question Answer Note LastModified by Organization D etails LastModified Time What is your level of alcohol consumption? None [email or web address] Information not available 09/12/2024 Mental Status None recorded. Family History Relationship Description Onset Age of this Age Resolved Age Notes LastModified by Organization Details LastModified Time Father Diabetes mellitus [email or web address] Not available 2023 15:43:22 Father Family history of stroke [email or web address] Not available 2023 15:43:39 Mother Heart disease [email or web address] Not available 2023 15:43:46 Medical History Condition [...] HAVE YOU BEEN HOSPITALIZED OR SEEN IN [facility] IN THE PAST YEAR ? [...] ICD10 Code Diagnosis IMO Codes Diagnosis Note [id number] Dave Webb MD [facility] [place] [address] [place] [address] 09/13/2024 15:26:45 09/13/2024 16:05:18 Benign paroxysmal positional vertigo 691927150 H81.10 Health Concerns Section Related Observation LastModified by Organization Detai ls LastModified Time None Recorded Concern Status LastModified by Organization Details LastModified Time None Recorded Advance Directives Directive None Recorded Payers Insurance Date Sequence Insurance Name Policy Number Policy Castro Covered Member ID Castro Member ID Guarantor Name 09/13/2024 1 [employer] - OPEN ACCESS Austin Dong [id number] Austin Dong Notes Date Note Type Note [...] also notes if she moves her head [id number] quickly this can also elicit symptoms. She also reports that when her spouse was watching football on the television the other day, this too was causing vertigo like symptoms. Bettie Ibarra, [employer] [address] [facility], [facility] [address], [place], [address], [facility] 09/13/2024 16:04:52 OBGyn Episode No OBEpisode recorded.
--- OUTSIDE RECORDS SUMMARY | 2025-10-08 06:21 | XMS_ITS | Encounter Summary ---
Author Organization [facility] Address 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 Gender Identity Not on file Sexual Orientation Not on file documented as of this encounter Plan of Treatment Upcoming Encounters Date Type Department Care Team (Late st Contact Info) Description 11/07/2025 9:30 AM ELECTRONIC IMAGING SYSTEM OPERATOR Office Visit [facility] Oncology and Hematology - [place] [address] [facility] [address] [place] [address] Neal Mena MD [address] [facility] [address] [place] [address] documented as of this encounter [...] [facility] CLIA# [id number] [address] [place] [address] * (ABNORMAL) COMPREHENSIVE METABOLIC PANEL (03/15/2009 10:24 [...] [facility] Intranet at: [email or web address] Select: Lab Policies and Procedures Select: Reference Ranges - GFR Blood specimen (specimen) 03/15/2009 10:24 PM CDT 03/15/2009 10:40 PM CDT us Juan Carranza MD CHEMISTRY ORDERABLES Edited INTERFACE SYSTEM Refer to clinic/hospital department [facility] CLIA# [id number] [address] [place] [address] * (ABNORMAL) CBC WITH DIFFERENTIAL (03/15/2009 10:24 [...] 16 - 45 % [facility] LYMPHOCYTE ABSOLUTE 1.84 0.70 - [...] 45 - 70 % [facility] NEUTROPHIL ABSOLUTE 8.05(H) 1.90 - 7.00 K/uL [facility] EOSINOPHILS 1 0 - 7 % [facility] EOSINOPHIL ABSOLUTE 0.07 0.00 - 0.70 K/uL [facility] Blood specimen (specimen) 03/15/2009 10:24 PM CDT 03/15/2009 10:40 PM CDT us Juan Carranza MD HEMATOLOGY ORDERABLES Edited INTERFACE SYSTEM Refer to clinic/hospital department [facility] CLIA# [id number] [address] [place] [address] documented in this encounter Visit Diagnoses Not on filedocumented in this encounter Care Teams Architectural Engineering Teacher Relationship Specialty Start Date End Date Trey Shen MD [address] [place] [address] PCP - General Family Practice 05/02/25 documented as of this encounter
--- OUTSIDE RECORDS SUMMARY | 2025-10-08 06:21 | XMS_ITS | Encounter Summary ---
Author Organization [facility] Address [address] [facility] [place] [address] Care Team Providers Care Milieu Technician Name Role Phone Trey Shen MD Primary Care Provider [phone] Encounter Details Date Type Department Care Team (Late st Contact Info) Description 07/20/2025 Lab Requisition [facility] - Pathology Lab [address] [place] [address] Moshe Reese MD [address] [place] [address] Illness, unspecified Social History Tobacco Use Types [...] Procedure Name Priority Date/Time Associated Diagnosis Comments SLIDE PREP HISTOLOGY Routine 07/20/2025 8:00 AM CDT Illness, unspecified documented in this encounter Results * SLIDE PREP HISTOLOGY (07/20/2025 8:00 AM CDT) Client Specimen ID # [id number] 08/31/2025 11:56 AM CDT [facility] Number of Blocks Received 0 08/31/2025 11:56 AM CDT [facility] PATHOLOGY LAB Number of Slides 1 08/31/2025 11:56 AM CDT [facility] PATH[facility] LAB Number of Control Slides 1 08/31/2025 11:56 AM CDT [facility] Pathology/Cytolo gy 07/20/2025 8:00 AM CDT 07/20/2025 9:00 AM CDT Moshe Reese MD LAB - PATHOLOGY/CYT OLOGY ORDERABLES Final Result [facility] LAB [address] [place] [address], [facility] [phone] documented in this encounter Visit Diagnoses Diagnosis Illness, unspecified documented in this encounter Care Teams Milieu Technician Relationship Specialty Start Date End Date Trey Shen MD [address] [place] [address] PCP - General 03/06/21 documented as of this encounter
--- OUTSIDE RECORDS SUMMARY | 2025-10-08 06:21 | XMS_ITS | Clinical Summary ---
Author Organization [facility] Building [address] [place] [address] Care Team Providers Care Political Advisor Name Role Phone Trey Shen MD Primary Care Provider Traci Yuan MD Unavailable [phone] Allergies Active Allergy Reactions Criticality Noted Date [...] 12/05/2024 Assessment & Plan (12/05/2024 3:05 PM BIOINFORMATICS ASSISTANT): I counseled the patient on exercise: [...] 12/05/2024 Assessment & Plan (12/05/2024 3:57 PM BIOINFORMATICS ASSISTANT): Patient's highest BMI was 48.6 ; initial BMI was 46.8; this has improved to 41.07 through medical management Vitamin D deficiency 09/12/2024 Assessment & Plan (12/05/2024 3:06 PM BIOINFORMATICS ASSISTANT): Continue vitamin-D supplementation Assessment & Plan (09/12/2024 4:10 PM CDT): start vitamin-D replacement 5,000IU daily Encounter for weight loss counseling 07/11/2024 Assessment & Plan (12/05/2024 3:05 PM BIOINFORMATICS ASSISTANT): Reviewed importance of adequate protein intake. [...] 07/11/2024 Assessment & Plan (12/05/2024 3:05 PM BIOINFORMATICS ASSISTANT): Obesity is one of the leading [...] 03/21/2018 Assessment & Plan (12/05/2024 4:18 PM BIOINFORMATICS ASSISTANT): Reviewed most recent labs. Continue low [...] 03/21/2018 Assessment & Plan (12/05/2024 3:05 PM BIOINFORMATICS ASSISTANT): Continue current dose of levothyroxine. Assessment [...] on file Legal Sex Female 7:08 PM BIOINFORMATICS ASSISTANT Gender Identity Not on file Sexual [...] (239 lb 6.4 oz) 12/05/2024 3:55 PM BIOINFORMATICS ASSISTANT Height 162.6 cm (5' 4.02) 12/05/2024 3:55 PM CS T Body Mass Index 41.07 12/05/2024 3:55 PM BIOINFORMATICS ASSISTANT Plan of Treatment Health Maintenance Due [...] patient's age to complete this topic [facility] [id number] Care Teams Political Advisor Relationship Specialty Start Date End Date Trey Shen MD [address] [place] [address] PCP - General Family Medicine 03/10/18 Traci Yuan MD [address] [place] [address] Referring Physician General Surgery 08/09/25
--- OUTSIDE RECORDS SUMMARY | 2025-10-08 06:21 | XMS_ITS | Clinical Summary ---
Author Organization [facility] Address [address] [place] [address] Care Team Providers Care Floor Attendant Name Role Phone Trey Shen MD Primary Care Provider [phone] Source Comments [facility],non-owned Affiliates and Associated Physician Practices is amultiple site organization consisting of ambulatory clinics and hospital sitesin [place], [place], [place] and [place]. This disclosure is being madepursuant to the Care Everywhere program and may not contain all information available regarding this patient. Last updated 18.[facility] Encounters Date Type Department Care Team Description 07/20/2025 Lab Requisition [facility] - Pathology Lab [address] [place] [id number] Moshe Reese MD Illness, unspecified from Last [...] on patient's age to complete this topic Procedures Procedure Name Priority Date/Time Associated Diagnosis Comments SLIDE PREP HISTOLOGY Routine 07/20/2025 8:00 AM CDT Illness, unspecified from Last 3 Months Results * SLIDE PREP HISTOLOGY (07/20/2025 8:00 AM CDT) Client Specimen ID # [id number] 08/31/2025 11:[address] [facility] PATHOLOGY LAB Number of Blocks Received 0 08/31/2025 11:[address] [facility] PATHOLOGY LAB Number of Slides 1 08/31/2025 11:[address] [facility] LAB Number of Control Slides 1 08/31/2025 11:[address] [facility] LAB Pathology/Cytolo gy 07/20/2025 8:00 AM CDT 07/20/2025 9:00 AM CDT Moshe Reese MD LAB - PATHOLOGY/CYT OLOGY ORDERABLES Final Result [facility] LAB [address] [place] [address], [facility] [phone] from Last 3 Months Insurance [employer] SELF PAY NO INSURANCE Member Subscriber Plan / Payer (Ef fective for All Dates) Name:Funmilayo Dong Member ID:Not on file Relation to Subscriber:Not on file Name:FUNMILAYO MCKENZIE Subscriber ID:Not on file (Home) Address: [address] [place] [address] Payer ID:Not on file Group ID:Not on file Type:Self Pay Address: [place], [place] Care Teams Floor Attendant Relationship Specialty Start Date End Date Trey Shen MD [address] [place] [address] PCP - General 03/06/21
[2025-10-08 07:20] VITALS: BP 139/92; PULSE 67; RESP 18; O2SAT 96
--- NOTE | 2025-10-08 07:22 | ED.GENADULT ---
HPI - General Adult General Chief complaint: Headache Stated complaint: Woke up with headache Time Seen by Provider: 10/08/25 06:57 History of Present Illness HPI narrative: 45-year-old female present to the emergency department for evaluation for headache. Patient states she woke up tonight having a intense headache that she described as sinus pressure. Patient states this headache was different than her typical migraine headache. Patient did take ibuprofen for pain control at home the patient states her headache has improved. Patient did have a head CT were ordered upon arrival to the emergency department this was negative. Patient denies any focal numbness or weakness. Patient states she is currently getting chemotherapy for breast cancer and follows up with Dr. Mena. Patient does describe some tingling and in her right finger tips that she states has been ongoing for the last few weeks Related Data Home Medications ?Medication ?Instructions ?Recorded ?Confirmed ?Last Taken ?Type multivitamin (Daily Multi-Vitamin 1 tablet PO DAILY 01/25/25 09/06/25 07/15/25 History tablet) ondansetron HCl 8 mg tablet 8 mg PO Q8H PRN nausea and vomiting 03/24/25 09/06/25 06/15/25 History levothyroxine 137 mcg tablet 137 mcg PO DAILY 08/22/25 09/06/25 Unknown History valacyclovir 500 mg tablet 500 mg PO DAILY 08/28/25 09/06/25 Unknown History loratadine 10 mg tablet (Claritin) 10 mg PO DAILY 09/05/25 09/06/25 Unknown History tamoxifen 10 mg tablet 10 mg PO ONCE 09/06/25 09/26/25 Unknown History Allergies Allergy/AdvReac Type Severity Reaction Status Date / Time butorphanol Allergy Intermediate Palpitations,TACHYCARDIA, Verified 10/08/25 06:25 DIZZINESS, VOMITING latex AdvReac Severe Hives Verified 10/08/25 06:25 egg AdvReac Intermediate Vomiting Verified 10/08/25 06:25 ketorolac AdvReac Intermediate Palpitation Verified 10/08/25 06:25 s Review of Systems Review of Systems: All systems reviewed & are unremarkable except as noted in HPI and below PMFSH Past Medical History Medical History Morbid obesity Rosacea Anxiety Diarrhea Otitis media Depression Hypothyroidism, unspecified Migraine without aura and without status migrainosus, not intractable Surgical History Surgical History H/O bilateral mastectomy 07/18/25 H/O breast biopsy Family History Family History Sibling Hypertension Patient's sister is in good health, Onset Age: 38 Patient's brother is in good health, Onset Age: 33 Family history of elevated blood lipids, Onset Age: 36 Diabetes mellitus Father Hypertension Family history of elevated blood lipids, Onset Age: 57 Family history of diabetes mellitus in first degree relative, Onset Age: 57 Diabetes mellitus Mother Family history of chronic obstructive pulmonary disease Family history of coronary artery disease, Onset Age: 54 Social History Social History Social History: Caffeine-occasionally Second hand tobacco smoke exposure: No Alcohol intake: never Substance use: never Substance use type: does not use Do You Feel Safe in your Home?: Yes Lack of Transportation: No Lack of Food: Never True Current Housing: Decline to Answer Concerned About Future Housing: Decline to Answer Difficulty Paying Gas/Electric Bills: Decline to Answer Difficulty Paying for Meds: Decline to Answer Currently Unemployed: Decline to Answer Education: Decline to Answer Difficulty w/ Childcare or Family Care: Decline to Answer Living arrangements: with family Occupation/Education: occupation Gender identity (if verbalized by the patient): Female Sexual Orientation (if Verbalized by the Patient): Straight or Heterosexual Spiritual care concerns: No Exam Narrative: APPEARANCE: Uncomfortable appearing HEAD: normocephalic, atraumatic. EYES: PERRLA/EOMI, conjunctivae clear. NOSE: Normal no drainage EARS:TMS clear with good light reflex. THROAT: Pharynx clear, no exudate. NECK: Supple. No adenopathy, no masses. RESPIRATORY: Airway patent, respirations nonlabored. Clear to auscultation bilaterally, no rales, rhonchi, wheezing. CARDIOVASCULAR: Regular rate and rhythm without murmurs rubs or gallops. ABDOMINAL: Soft, nontender, nondistended, normal bowel sounds MUSCULOSKELETAL: Moves all extremities. Strength/ROM intact, No edema, No calf tenderness. NEURO: Alert. Cranial nerves II through XII intact. Good gait. Good coordination SKIN: Warm, dry. Normal Color PSYCHIATRIC: Normal affect/mood. Course Vital Signs Vital signs: Vital Signs Temperature 97.5 F L 10/08/25 06:21 Pulse Rate 72 10/08/25 06:21 Respiratory Rate 18 10/08/25 06:21 Blood Pressure 149/103 H 10/08/25 06:21 Pulse Oximetry 100 10/08/25 06:21 Oxygen Delivery Room Air 10/08/25 06:21 Temperature 97.5 F L 10/08/25 06:21 Pulse Rate 72 10/08/25 09:00 Respiratory Rate 16 10/08/25 09:00 Blood Pressure 115/76 10/08/25 09:00 Pulse Oximetry 98 10/08/25 09:00 Oxygen Delivery Room Air 10/08/25 06:21 Medical Decision Making MDM Narrative Medical decision making narrative: 45-year-old female presented emergency department for evaluation for headache. Patient reports the headache was initially a different from her typical migraine. Patient did take ibuprofen at home and headache did improve and at time of evaluation patient states that headache was very similar to her previous migraines. Patient had a negative head CT. Patient was treated with lactated Ringer's, dexamethasone, diphenhydramine and Compazine. At time of re-evaluation patient states her headache is resolved. Patient is well-appearing. Patient was encouraged of close follow-up with Oncology to discuss the neuropathy in the right hand Differential Diagnosis Differential Diagnosis: Migraine, subdural hematoma, subarachnoid hemorrhage, vasculitis, adverse medication reaction Vital Signs Vital Signs: Vital Signs Temperature 97.5 F L 10/08/25 06:21 Pulse Rate 72 10/08/25 06:21 Respiratory Rate 18 10/08/25 06:21 Blood Pressure 149/103 H 10/08/25 06:21 Pulse Oximetry 100 10/08/25 06:21 Oxygen Delivery Room Air 10/08/25 06:21 Temperature 97.5 F L 10/08/25 06:21 Pulse Rate 72 10/08/25 09:00 Respiratory Rate 16 10/08/25 09:00 Blood Pressure 115/76 10/08/25 09:00 Pulse Oximetry 98 10/08/25 09:00 Oxygen Delivery Room Air 10/08/25 06:21 Imaging Data Radiologist's impression: Impressions Head CT 10/08/25 06:49 IMPRESSION: 1. Normal brain. Discharge Plan Discharge Clinical Impression: Migraine, Neuropathy Patient Disposition: Home Condition: Stable Instructions: Antibiotic Form, Acute Headache (DC) Additional Instructions: have close follow-up with Oncology regarding the neuropathy of the right hand. have close follow-up with your primary care physician. If you have any worsening symptoms then please call or return to the emergency department. Patient Language: Argentine Prescriptions: No Action levothyroxine 137 mcg tablet 137 mcg PO DAILY ondansetron HCl 8 mg tablet 8 mg PO Q8H PRN (Reason: nausea and vomiting) Patient Comments: . valacyclovir 500 mg tablet 500 mg PO DAILY loratadine [Claritin] 10 mg tablet 10 mg PO DAILY tamoxifen 10 mg tablet 10 mg PO ONCE hydrocortisone 2.5 % cream with perineal applicator 1 applic RECTAL BID Qty: 30 0RF multivitamin [Daily Multi-Vitamin] Tablet 1 tablet PO DAILY Patient Comments: . sertraline 50 mg tablet 50 mg PO DAILY Qty: 90 2RF Follow-up/Referrals: Trey Shen MD [Primary Care Provider, Family Practice]
[2025-10-08] MEDS: LACTATED RINGERS 1,000 ML 999 ML IV CONT (07:37)
[2025-10-08] MEDS: dexAMETHasone SOD PHOS INJ 10 MG/ML 1 ML VIAL IV PUSH (07:44)
[2025-10-08] MEDS: PROCHLORPERAZINE EDISYLATE 10 MG/2 ML VIAL IV PUSH (07:45)
[2025-10-08 09:00] VITALS: BP 115/76; PULSE 72; RESP 16; O2SAT 98
== END 2025-10-08 09:43 | disposition home or self-care (01) ==
PROVIDERS: Emergency Provider Emergency Medicine; PCP Family Medicine
DX: G43.909 Migraine, unspecified, not intractable, without status migrainosus (principal); G62.9 Polyneuropathy, unspecified; F41.9 Anxiety disorder, unspecified; F32.A Depression, unspecified; E03.9 Hypothyroidism, unspecified
CPT/HCPCS: 70450; 96361; 96374; 96375; 99285; J0780; J1100; J1200; J7120

== ENCOUNTER 2025-10-08 19:19 | Emergency (ER) | payer OTHER, SELFPAY ==
[2025-10-08 19:26] VITALS: BP 136/92; PULSE 94; RESP 16; TEMP 36.6; O2SAT 98
--- NOTE | 2025-10-08 19:49 | ED_ITS ---
HPI - Skin/Abscess/Foreign Bdy General Chief complaint: Skin/Abscess/Foreign Body Stated complaint: Injured Toe Time Seen by Provider: 10/08/25 19:35 Source: patient, RN notes reviewed and old records reviewed Mode of arrival: ambulatory Limitations: no limitations History of Present Illness HPI narrative: 45 year presents to Express Care with to her mother with complaints of left great toe pain starting today. Patient reports that she was using towel and foot to wipe up water on the floor and hit her left great toe on the washer. Patient reports that she was treated 6 weeks ago for toe infection and had been healed. Patient reports that she is suppose to have Chemotherapy for her breast cancer and wants to make sure nothing will delay treatment.Patient has some dried blood noted to inner edge of left great toe with no active bleeding noted with small abrasion noted to inner aspect of left great toe,patient has full mobility of toe. MD complaint: other (left great toe pain/injury) Onset (ago): day(s) (today) Location: L foot (great toe) Severity scale (1-10): 4 Quality: aching and other (throbbing) Treatments prior to arrival: other (ointment) Related Data Home Medications ?Medication ?Instructions ?Recorded ?Confirmed ?Last Taken ?Type multivitamin (Daily Multi-Vitamin 1 tablet PO DAILY 10/08/25 07/15/25 History tablet) ondansetron HCl 8 mg tablet 8 mg PO Q8H PRN nausea and vomiting 03/24/25 10/08/25 06/15/25 History levothyroxine 137 mcg tablet 137 mcg PO DAILY 08/22/25 10/08/25 Unknown History valacyclovir 500 mg tablet 500 mg PO DAILY 08/28/25 Unknown History loratadine 10 mg tablet (Claritin) 10 mg PO DAILY 07/2310/08/25 Unknown History tamoxifen 10 mg tablet 10 mg PO ONCE 09/06/2510/08 Unknown History Allergies Allergy/AdvReac Type Severity Reaction Status Date / Time butorphanol Allergy Intermediate Palpitations,TACHYCARDIA, Verified 10/08/25 19:32 DIZZINESS, VOMITING latex AdvReac Severe Hives Verified 10/08/25 19:32 egg AdvReac Intermediate Vomiting Verified 10/08/25 19:32 ketorolac AdvReac Intermediate Palpitation Verified 10/08/25 19:32 s Review of Systems Review of Systems: CONSTITUTIONAL: Denies fever, chills, or sweats. CARDIOVASCULAR: Denies chest pain, palpitations, or edema. RESPIRATORY: Denies cough or dyspnea. GASTROINTESTINAL: Denies abdominal pain, nausea, vomiting SKIN: Reports pain and abrasion of eft great toe from injury Denies purulent drainage, vesicles, bullae, numbness, pain beyond proportion MUSCULOSKELETAL: Denies myalgia. NEUROLOGIC: Denies headache, numbness All systems reviewed & are unremarkable except as noted in HPI and below PMFSH Past Medical History Medical History Breast cancer presently receiving chemotherapy Morbid obesity Rosacea Anxiety Diarrhea Otitis media Depression Hypothyroidism, unspecified Migraine without aura and without status migrainosus, not intractable Surgical History Surgical History H/O bilateral mastectomy 07/18/25 H/O breast biopsy Family History Family History Sibling Hypertension Patient's sister is in good health, Onset Age: 38 Patient's brother is in good health, Onset Age: 33 Family history of elevated blood lipids, Onset Age: 36 Diabetes mellitus Father Hypertension Family history of elevated blood lipids, Onset Age: 57 Family history of diabetes mellitus in first degree relative, Onset Age: 57 Diabetes mellitus Mother Family history of chronic obstructive pulmonary disease Family history of coronary artery disease, Onset Age: 54 Social History Social History Social History: Caffeine-occasionally Smoking status: Never smoker Second hand tobacco smoke exposure: No Alcohol intake: never Substance use: never Substance use type: does not use Do You Feel Safe in your Home?: Yes Lack of Transportation: No Lack of Food: Never True Current Housing: Decline to Answer Concerned About Future Housing: Decline to Answer Difficulty Paying Gas/Electric Bills: Decline to Answer Difficulty Paying for Meds: Decline to Answer Currently Unemployed: Decline to Answer Education: Decline to Answer Difficulty w/ Childcare or Family Care: Decline to Answer Living arrangements: with family Occupation/Education: occupation Gender identity (if verbalized by the patient): Female Sexual Orientation (if Verbalized by the Patient): Straight or Heterosexual Spiritual care concerns: No Comments At time of signature, agree with nursing past medical, surgical, social and family history. There is no relevant family history pertinent to the presenting complaint Exam Narrative: GENERAL: Well-appearing, well-nourished, and in no acute distress. HEAD: Normocephalic, atraumatic. EYES: PERRLA and EOMI. ENT: Nares clear, no rhinorrhea or epistaxis. Mucous membranes moist. NECK: Supple. no lymphadenopathy CHEST: Clear to auscultation. No respiratory distress.no cough noted SAO2 98% on room air HEART: Regular rate and rhythm. No murmur heard. Normal peripheral pulses. ABDOMEN: Soft, nontender, nondistended, normal active bowel sounds. EXTREMITIES: Normal range of motion. No edema. SKIN: Warm, dry. Minimal erythema a to left great toe with small abrasion to inner aspect of toe, full mobility of toe no active bleeding noted No vesicles, bullae, necrosis, ecchymosis, crepitus noted NEURO: No focal deficits. Alert and oriented x3. Course Course Emergency Course: Patient is aware of diagnosis, understands and agrees to treatment plan. Anticipatory guidance given. Patient agrees to follow-up as directed and is aware of reasons to seek care at the emergency department. Portions of this record may have been created with voice recognition software Level of Care: Express Care Visit Vital Signs Vital signs: Vital Signs Temperature 36.6 C 10/08/25 19:26 Pulse Rate 94 10/08/25 19:26 Respiratory Rate 16 10/08/25 19:26 Blood Pressure 136/92 H 10/08/25 19:26 Pulse Oximetry 98 10/08/25 19:26 Temperature 36.6 C 10/08/25 19:26 Pulse Rate 94 10/08/25 19:26 Respiratory Rate 16 10/08/25 19:26 Blood Pressure 136/92 H 10/08/25 19:26 Pulse Oximetry 98 10/08/25 19:26 Reviewed MDM - Skin/Abscess/Foreign Bdy MDM Narrative Medical decision making narrative: Does not appear at this time to be erythema multiforme, bullous, SJS, TEN; no evidence at this time to suggest RMSF, endocarditis or Lyme disease; patient looks well, nontoxic and is tolerating oral intake; no neurologic signs or symptoms; no headache, photophobia or neck pain; afebrile; appropriate for initial outpatient treatment; discussed the importance of follow-up, patient agrees. Patient does not have history of penetrating trauma, laceration, blunt trauma, recent surgery, immunosuppression, malignancy, obesity, alcoholism, corticosteroid use. Question cellulitis, necrotizing soft tissue infection, abscess. small abrasion and discomfort to left great toe with no acute swelling or redness has full mobility of left great toe will treat with antibiotic prophylactically since cellulitis of toe in late July. Patient is currently on chemotherapy. Differential Diagnosis Differential diagnosis: Likely cellulitis and other (abrasion, injury left great toe) Medical Records Attestation: I reviewed the patient's medical records. Critical Care Time Critical Care Time Critical Care Time: No Discharge Plan Discharge Clinical Impression: Pain of left great toe Abrasion of great toe of left foot Qualifiers: Encounter type: initial encounter Qualified Code(s): S90.412A - Abrasion, left great toe, initial encounter Patient Disposition: Home Condition: Stable Instructions: Antibiotic Form, Abrasion (ED) Additional Instructions: soap left great toe with liquid Dial soap twice daily rinse pat dry apply mupirocin and Band-Aid watch for any increasing infection--redness, swelling, drainage Tylenol or ibuprofen for any fever pain follow up with PCP in 7-10 days for a wound check recheck if develop fever, chills, increasing symptom Go to the ER if your symptoms become worse of if ANY new symptoms develop antibiotics take as prescribed follow-up with your technical customer support specialist for further evaluation If your symptoms persist, change or worsen significantly before you can contact your personal physician then please, without delay, go to the emergency department for further evaluation. Follow-up with PCP in 7-10 days or sooner if needed Follow up with PCP soon in regards to your blood pressure which is elevated above threshold for referral. Blood pressure above 120/80 may indicate pre- hypertension. 136/90 Patient Language: Frisian Prescriptions: New cephalexin 500 mg capsule 500 mg PO Q8H Qty: 21 0RF No Action levothyroxine 137 mcg tablet 137 mcg PO DAILY ondansetron HCl 8 mg tablet 8 mg PO Q8H PRN (Reason: nausea and vomiting) Patient Comments: . valacyclovir 500 mg tablet 500 mg PO DAILY loratadine [Claritin] 10 mg tablet 10 mg PO DAILY tamoxifen 10 mg tablet 10 mg PO ONCE hydrocortisone 2.5 % cream with perineal applicator 1 applic RECTAL BID Qty: 30 0RF multivitamin [Daily Multi-Vitamin] Tablet 1 tablet PO DAILY Patient Comments: . sertraline 50 mg tablet 50 mg PO DAILY Qty: 90 2RF Follow-up/Referrals: Trey Shen MD [Primary Care Provider, [facility]] Time of Disposition: 20:07 Quality [place] Coma Scale Eyes: Open Verbal: Oriented and Alert Motor: Follows Commands [place] Coma Total Score: 15
== END 2025-10-08 20:10 | disposition home or self-care (01) ==
PROVIDERS: Emergency Provider Registered Nurse; PCP Family Medicine
DX: S90.412A Abrasion, left great toe, initial encounter (principal); W22.8XXA Striking against or struck by other objects, initial encounter; C50.919 Malignant neoplasm of unspecified site of unspecified female breast; Z79.60 Long term (current) use of unspecified immunomodulators and immunosuppressants; E03.9 Hypothyroidism, unspecified; F41.9 Anxiety disorder, unspecified; F32.A Depression, unspecified; E66.01 Morbid (severe) obesity due to excess calories; Z68.41 Body mass index [BMI] 40.0-44.9, adult; L71.9 Rosacea, unspecified; Z90.13 Acquired absence of bilateral breasts and nipples
CPT/HCPCS: 99213; G0463

== ENCOUNTER 2025-11-28 09:47 | Outpatient (CLI) | payer OTHER, SELFPAY ==
--- OUTSIDE RECORDS SUMMARY | 2025-11-28 09:56 | XMS_ITS | Clinical Summary ---
Author Organization [facility] Address [address] [place] [address] Care Team Providers Care Casualty Claims Supervisor Name Role Phone Trey Shen MD Primary [...] for Nausea/Emesis. 30 Tablet 1 5 Active naproxen sodium (ALEVE) 220 mg Tablet Take 220 mg by mouth. Active gabapentin (NEURONTIN) 300 mg capsule Take 1 Capsule (300 mg) by mouth 2 times daily. 60 Capsule 1 5 Active Active Problems No known active problems Encounters Date Type Department Care Team Description 11/19/2025 Orders Only [facility] Oncology and Hematology [facility] [address] [place] [id number] Neal Mena MD Malignant neoplasm of upper-outer quadrant of left breast in female, estrogen receptor positive (CMS/HCC) 11/13/2025 External Device Data STL ABSTRACTION Provider, Abstract 11/09/2025 Orders Only [facility] Oncology [facility] Hematology [facility] [address] [place] [address] Neal Mena MD Encounter for chemotherapy management (Primary Dx) 11/08/2025 Abstract [facility] Oncology [facility] Hematology [facility] [address] [place] [address] Neal Mena MD 11/07/2025 9:30 AM INDUSTRIAL TRUCK OPERATOR Office Visit [facility] Oncology [facility] Hematology [facility] [address] [place] [address] Neal Mena MD Malignant neoplasm of upper-outer quadrant of left breast in female, estrogen receptor positive (CMS/HCC) (Primary Dx) 11/05/2025 Orders Only [facility] Oncology [facility] Hematology [facility] [address] [place] [id number] Neal Mena MD Malignant neoplasm of upper-outer quadrant of left breast in female, estrogen receptor positive (CMS/HCC) 11/01/2025 Telephone [facility] Oncology and Hematology - [place] [address] [place] [id number] Neal Mena MD surgical clearance request 10/22/2025 Orders Only [facility] Oncology and Hematology - [place] [address] [place] [address] Neal Mena MD Malignant neoplasm of upper-outer quadrant of left breast in female, estrogen receptor positive (CMS/HCC) 10/18/2025 Orders Only [facility] Oncology and Hematology - [place] [address] [place] [id number] Neal Mena MD 10/12/2025 Telephone [facility] Oncology and Hematology - [place] [address] [place] [address] Marycruz Solis MD patient question 10/08/2025 Orders Only [facility] Oncology and Hematology - [place] [address] [place] [id number] Neal Mena MD Malignant neoplasm of upper-outer quadrant of left breast in female, estrogen receptor positive (CMS/HCC) 09/27/2025 Orders Only [facility] Oncology and Hematology - [place] [address] [place] [address] Neal Mena MD 09/26/2025 8:30 AM CDT Office Visit [facility] Oncology and Hematology - [place] [address] [place] [address] Neal Mena MD Malignant neoplasm of upper-outer quadrant of left breast in female, estrogen receptor positive (CMS/HCC) (Primary Dx) 09/24/2025 Orders Only [facility] Oncology and Hematology - [place] [address] [place] [address] Neal Mena MD Malignant neoplasm of upper-outer quadrant of left breast in female, estrogen receptor positive (CMS/HCC) 09/19/2025 External Device Data STL ABSTRACTION Provider, Abstract 09/18/2025 External Device Data STL ABSTRACTION Provider, Abstract 09/14/2025 Abstract [facility] Oncology and Hematology [facility] [address] [place] [address] Neal Mena MD 09/10/2025 Orders Only [facility] Oncology and Hematology [facility] [address] [place] [address] Neal Mena MD Malignant neoplasm of upper-outer quadrant of left breast in female, estrogen receptor positive (CMS/HCC) 09/04/2025 Abstract [facility] Oncology and Hematology [facility] [address] [place] [address] Neal Mena MD from Last 3 Months Family History Medical [...] on file Legal Sex Female 5:43 AM INDUSTRIAL TRUCK OPERATOR Gender Identity Not on file Sexual Orientation Not on file Last Filed Vital Signs Vital Sign Reading Time Taken Comments Blood Pressure 132/93 11/07/2025 9:45 AM INDUSTRIAL TRUCK OPERATOR Pulse 78 11/07/2025 9:41 AM INDUSTRIAL TRUCK OPERATOR Temperature 36.2 C (97.1 F) 11/07/2025 9:41 AM INDUSTRIAL TRUCK OPERATOR Respiratory Rate 16 11/07/2025 9:41 AM INDUSTRIAL TRUCK OPERATOR Oxygen Saturation 96% 11/07/2025 9:41 AM INDUSTRIAL TRUCK OPERATOR Inhaled Oxygen Concentration - - Weight 115.4 kg (254 lb 6.4 oz) 11/07/2025 9:41 AM INDUSTRIAL TRUCK OPERATOR Height 162.6 cm (5' 4) 02/02/2025 1:46 PM INDUSTRIAL TRUCK OPERATOR Body Mass Index 43.67 02/02/2025 1:46 PM INDUSTRIAL TRUCK OPERATOR Plan of Treatment Upcoming Encounters Date Type Department Care Team (Late st Contact Info) Description 12/19/2025 8:45 AM INDUSTRIAL TRUCK OPERATOR Office Visit [facility] Oncology and Hematology - [place] [address] [facility] [address] [place] [address] Neal Mena MD [address] [facility] [address] [place] [address] Health Maintenance Due Date Last [...] SCREENING 08/01/2028 PAP SMEAR 08/01/2028 08/01/2025, 02/17/2024 Preventative Visit- Commercial Completed 0 08/01/2025, 02/17/2024, 07/30/2021 Procedures Procedure Name Priority Date/Time Associated Diagnosis Comments COMPREHENSIVE METABOLIC PANEL Routine 10/17/2025 10:42 AM INDUSTRIAL TRUCK OPERATOR CBC WITH AUTODIFFERENTIAL Routine 2024 10:41 AM INDUSTRIAL TRUCK OPERATOR COMPREHENSIVE METABOLIC PANEL Routine 09/26/2025 12:18 PM CDT from Last 3 Months Results * COMPREHENSIVE METABOLIC PANEL (10/17/2025 10:42 AM INDUSTRIAL TRUCK OPERATOR) Only the most recent of2 resultswithin the time period is included. Blood us Neal Mena MD CHEMISTRY ORDERABLES Final Resu lt * CBC WITH AUTODIFFERENTIAL (10/17/2025 10:41 AM INDUSTRIAL TRUCK OPERATOR) Blood Neal Mena MD HEMATOLOGY ORDERABLES Final Res ult from Last 3 Months Insurance [facility] [employer] Care Teams Casualty Claims Supervisor Relationship Specialty Start Date End Date Trey Shen MD [address] [facility] [address] [facility] [address] [place] [address] PCP - General Family Practice 05/02/25
--- OUTSIDE RECORDS SUMMARY | 2025-11-28 09:56 | XMS_ITS | Clinical Summary ---
Author Organization [facility] [address] [place] [address] Care Team Providers Care Barge Pilot Name Role Phone Trey Shen MD Primary Care Provider Traci Yuan MD Unavailable [phone] Allergies Active Allergy Reactions Criticality Noted Date [...] 12/05/2024 Assessment & Plan (12/05/2024 3:05 PM STORAGE GARAGE MANAGER): I counseled the patient on exercise: [...] 12/05/2024 Assessment & Plan (12/05/2024 3:57 PM STORAGE GARAGE MANAGER): Patient's highest BMI was 48.6 ; initial BMI was 46.8; this has improved to 41.07 through medical management Vitamin D deficiency 09/12/2024 Assessment & Plan (12/05/2024 3:06 PM STORAGE GARAGE MANAGER): Continue vitamin-D supplementation Assessment & Plan (09/12/2024 4:10 PM CDT): start vitamin-D replacement 5,000IU daily Encounter for weight loss counseling 07/11/2024 Assessment & Plan (12/05/2024 3:05 PM STORAGE GARAGE MANAGER): Reviewed importance of adequate protein intake. [...] 07/11/2024 Assessment & Plan (12/05/2024 3:05 PM STORAGE GARAGE MANAGER): Obesity is one of the leading [...] 03/21/2018 Assessment & Plan (12/05/2024 4:18 PM STORAGE GARAGE MANAGER): Reviewed most recent labs. Continue low [...] 03/21/2018 Assessment & Plan (12/05/2024 3:05 PM STORAGE GARAGE MANAGER): Continue current dose of levothyroxine. Assessment [...] on file Legal Sex Female 7:08 PM STORAGE GARAGE MANAGER Gender Identity Not on file Sexual [...] (239 lb 6.4 oz) 12/05/2024 3:55 PM STORAGE GARAGE MANAGER Height 162.6 cm (5' 4.02) 12/05/2024 3:55 PM CS T Body Mass Index 41.07 12/05/2024 3:55 PM STORAGE GARAGE MANAGER Plan of Treatment Health Maintenance Due Date [...] patient's age to complete this topic [facility] [id number] Care Teams Barge Pilot Relationship Specialty Start Date End Date Trey Shen MD [address] [place] [address] PCP - General Family Medicine 03/10/18 Traci Yuan MD [address] [place] [address] Referring Physician General Surgery 08/09/25
--- OUTSIDE RECORDS SUMMARY | 2025-11-28 09:56 | XMS_ITS | Patient Health Record ---
Author Organization [facility] Address [address] [place] [address] Phone [phone] Care Team Providers Care Skills Instructor Name Role Phone Prakash YEPEZNPam Primary Care Provider Allergies Allergen (clinical drug ingredient) Drug/Non Drug Allergy documented on EMR Reaction Allergy Type Onset Date Status eggs (uncoded) vomiting Allergy Activ e Lyssa lyssa (uncoded) anaphylaxis Allergy Active stadol (uncoded) heart racing, htn Allergy Active ketorolac tordol (uncoded) heart racing, htn Allergy Active Reason For Referral No Information Medications Medication SIG (Take, Route, Frequency, Duration) Notes Start Date End Date Diagnosis (ICD Code) Status Azithromycin 250 MG Tablet 2 tablets on the first day, then 1 tablet daily for 4 days Orally Once a day; Duration: 5 day(s) 11/26/2017 Active Levothyroxine Sodium 137 MCG Tablet 1 tablet on an empty stomach in the morning Orally Once a day; Duration: 30 days Active Phentermine HCl 30 MG Capsule 1 capsule Orally Once a day Active Sertraline HCl 100 MG Tablet 1 tablet Orally Once a day Active PROzac 20 MG Capsule 1 capsule in the morning Orally Once a day; Duration: 30 day(s) 10/29/2017 Moderate episode of recurrent major depressive disorder (ICD_10 - F33.1) Active Ammonium Lactate 12 % Lotion 1 application to affected area Externally Twice a day; Duration: 30 days Keratosis pilaris (ICD_10 - L85.8) Active Hydrocortisone 2.5 % Cream 1 application to affected area Rectal Twice a day Active Social History Sex Observation Social History Observation Description Sex Observation Female Social History Primary Social History Social Info Question Answer Notes Living Arrangement Living Arrangement: Independent Juli ing Is this a supportive environment? Yes Tobacco Use - do not use Tobacco Use: Never Employment Status Employment Status: Employed [employer] Illicit Substance Usage Illicit Substance Usage: No Alcohol Use Alcohol Use Frequency: Monthly or less Problems Problem Type SNOMED Code ICD Code Dates Problem Status W/U Status Risk Notes Problem Morbid obesity (disorder) (067086938) Morbid (severe) obesity due to excess calories (E66.01) Added On:2016 Active confirmed Problem Moderate recurrent major depression (95818240) Moderate episode of recurrent major depressive disorder (F33.1) Added On:2016 Active confirmed Problem Hypothyroidism (45678952) Hypothyroidism, unspecified type (E03.9) Added On:2016 Active confirmed Problem Body mass index 40+ - severely obese (553931491) Body mass index (BMI) of 40.0-44.9 in adult (Z68.41) Added On:2016 Active confirmed Plan Of Treatment No Information Insurance Providers Payer Name Payer Address Payer Phone Subscriber Number Group Number Insured Name Patient Relationship to Insured Coverage Start Date Coverage End Date [facility] Attn Claims Department [address] [place] [phone] [id number] Austin Summers Self - patient is the insured 7 Medical (General) History Medical History History ICD Code hypothyroidism depression anxiety keratosis pilaris Surgical History Surgery Date(Month/Year) cholecystectomy 2004 Hospitalization History Reason Date(Month/Year) food poisoning 04/2017
--- OUTSIDE RECORDS SUMMARY | 2025-11-28 09:56 | XMS_ITS | Encounter Summary ---
Author Organization [facility] Address [address] [place] [address] Care Team Providers Care Director Informatics Name Role Phone Trey Shen MD Primary Care Provider [phone] Encounter Details Date Type Department Care Team (Late st Contact Info) Description 03/15/2009 Emergency [facility] [place], Authorized P NO ADDRESS ON FILE Juan Carranza MD [address] [place] [id number] Social History Tobacco Use Types Packs/Day Years Used Date Smoking Tobacco: Never Assessed Comments Unknown Sex and Gender Information Value Date Recorded Sex Assigned at Not on file Legal Sex Female 5:43 AM [employer] ME[employer] Gender Identity Not on file Sexual Orientation Not on file documented as of this encounter Plan of Treatment Upcoming Encounters Date Type Department Care Team (Late st Contact Info) Description 12/19/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[facility] Oncology and Hematology - [place] [address] [facility] [address] [place] [address] Neal Mena MD [address] [facility] [address] [place] [address] documented as of this encounter Procedures Procedure Name Priority Date/Time Associated Diagnosis Comments CBC WITH DIFFERENTIAL Stat 03/15/2009 10:24 PM CDT C-REACTIVE PROTEIN Stat 03/15/2009 10 :24 PM CDT COMPREHENSIVE METABOLIC PANEL Stat 03/15/2009 10:24 PM CDT documented in this encounter Results * C-REACTIVE PROTEIN (03/15/2009 10:24 PM CDT) Pathologist [facility] CRP 0.7 0.0 - 0.8 mg/dL [facility] Blood specimen (specimen) 03/15/2009 10:24 PM CDT 03/15/2009 10:40 PM CDT us Juan Carranza MD CHEMISTRY ORDERABLES Final Resu lt INTERFACE SYSTEM Refer to clinic/hospital department [facility] CLIA# [id number] [address] [facility] [place] [address] * (ABNORMAL) COMPREHENSIVE METABOLIC PANEL (03/15/2009 10:24 PM CDT) Pathologist [facility] CREATININE 0.60 0.51 - 0.95 mg/dL [facility] SODIUM 137 135 - 145 mmol/L [facility] ALT 12 0 - 31 U/L [facility] ALKALINE PHOSPHATASE 46 35 - 104 U/L [facility] BILIRUBIN TOTAL 0.5 0.2 - 1.0 mg/dL [facility] CO2 21(L) 22 - 30 mmol/L [facility] TOTAL PROTEIN 6.1(L) 6.3 - 8.6 g/dL [facility] POTASSIUM 3.1(L) 3.5 - 4.9 mmol/L [facility] GLUCOSE 111(H) 65 - 99 mg/dL [facility] AST 17 12 - 32 U/L [facility] BUN 6 6 - 20 mg/dL [facility] CALCIUM 8.5(L) 8.6 - 10.2 mg/dL [facility] CHLORIDE 107 96 - 108 mmol/L [facility] ALBUMIN 3.5 3.4 - 4.8 g/dL [facility] GFR, >60 >=60 mL/min/1. 7 sq meter [facility] GFR >60 >=60 mL/min/1. 7 sq meter [facility] Comment: Modification of Diet in Renal Disease (MDRD) study formula. Estimated GFR rate interpretative information for both Americans and non- Americans is available on the [facility] Intranet at: [email or web address] Select: Lab Policies and Procedures Select: Reference Ranges - GFR Blood specimen (specimen) 03/15/2009 10:24 PM CDT 03/15/2009 10:40 PM CDT Juan Carranza MD CHEMISTRY ORDERABLES Edited INTERFACE SYSTEM Refer to clinic/hospital department [facility] CLIA# [id number] [address] [place] [address] * (ABNORMAL) CBC WITH DIFFERENTIAL (03/15/2009 10:24 PM CDT) HEMOGLOBIN 10.4(L) 11.8 - 14.8 g/dL [facility] RDW 14.2 11.5 - 14.5 % [facility] WBC 10.7(H) 4.0 - 9.8 K/uL [facility] MCH 30.0 27.2 - 32.6 pg [facility] MPV 10.9 9.3 - 12.4 fL [facility] HEMATOCRIT 30.4(L) 35.5 - 44.0 % [facility] RDW-STDEV 44.5 37.1 - 48.7 fL [facility] RBC 3.47(L) 3.90 - 4.90 M/uL [facility] MCHC 34.2 31.5 - 35.5 % [facility] MCV 87.6 82.0 - 99.0 fL [facility] PLATELETS 229 140 - 350 K/uL [facility] LYMPHOCYTES 17 16 - 45 % [facility] LYMPHOCYTE ABSOLUTE 1.84 0.70 - 4.50 K/uL [facility] BASOPHILS 0 0 - 2 % [facility] BASOPHILS ABSOLUTE 0.01 0.00 - 0.20 K/uL [facility] MONOCYTES 7 3 - 13 % [facility] MONOCYTE ABSOLUTE 0.72 0.10 - 1.30 K/uL [facility] NEUTROPHILS 75(H) 45 - 70 % [facility] NEUTROPHIL ABSOLUTE 8.05(H) 1.90 - 7.00 K/uL [facility] EOSINOPHILS 1 0 - 7 % [facility] EOSINOPHIL ABSOLUTE 0.07 0.00 - 0.70 K/uL [facility] Blood specimen (specimen) 03/15/2009 10:24 PM CDT 03/15/2009 10:40 PM CDT us Juan Carranza MD HEMATOLOGY ORDERABLES Edited INTERFACE SYSTEM Refer to clinic/hospital department [facility] CLIA# [id number] [address] [place] [address] documented in this encounter Visit Diagnoses Not on filedocumented in this encounter Care Teams Director Informatics Relationship Specialty Start Date End Date Trey Shen MD [address] [place] [address] PCP - General Family Practice 05/02/25 documented as of this encounter
[2025-11-28 12:57] LABS: Cholesterol 288 mg/dL (0-200); HDL Direct 36 mg/dL; Triglycerides 167 mg/dL (<150)
[2025-11-28 13:13] LABS: Free T4 Free Thyroxine 1.38 ng/dL (0.78-2.19)
[2025-11-28 14:00] LABS: Hemoglobin A1C 5.6 % (<5.7)
== END 2025-11-28 09:48 | disposition home or self-care (01) ==
LOC: ANHLAB 09:48
PROVIDERS: PCP Family Medicine; Visit Provider Family Medicine
DX: C50.919 Malignant neoplasm of unspecified site of unspecified female breast (principal); K92.1 Melena
CPT/HCPCS: 36415; 80061; 83036; 84439